=== PATIENT | male | born 1945 | race Caucasian/White ===

== ENCOUNTER 2022-08-10 14:45 | Outpatient (CLI) | payer OTHER, SELFPAY | END 2022-08-10 14:46 | disposition home or self-care (01) | LOC: AMB 08-14 09:10 | PROVIDERS: PCP Family Medicine; Visit Provider Family Medicine | DX: S89.91XA Unspecified injury of right lower leg, initial encounter (principal); S79.911A Unspecified injury of right hip, initial encounter; W18.30XA Fall on same level, unspecified, initial encounter; Y92.007 Garden or yard of unspecified non-institutional (private) residence as the place of occurrence of the external cause | CPT/HCPCS: A0425; A0427 ==

== ENCOUNTER 2022-08-10 15:09 | Inpatient (IN) | payer OTHER, SELFPAY ==
[2022-08-10] VITALS (14 sets, daily range): BP systolic 110–133; BP diastolic 57–103; PULSE 74–105; RESP 16–22; TEMP 36.5–36.9; O2SAT 88–93; BMI 22.0; BMI 22.4
--- NOTE | 2022-08-10 15:19 | CRLHL7_ITS ---
For Patients: As a result of the Cures Act, medical imaging exams and procedure reports are released immediately into your electronic medical record. You may view this report before your referring provider. If you have questions, please contact your health care provider. INDICATION: Fall, right hip Pain TECHNIQUE: Single view pelvis with AP and frogleg views of the right hip. COMPARISONS: None available. FINDINGS: Femoral heads are well-seated in the acetabula. There is a comminuted intertrochanteric fracture of the right hip. No other displaced injury is seen. There is axial loss of joint space with marginal osteophyte formation. Mild right hip soft tissue swelling. IMPRESSION: Comminuted intertrochanteric fracture of the right hip with mild right hip soft tissue swelling. Dictated by Wolfgang Ledbetter MD @ 08/10/2022 4:36:39 PM (Electronically Signed)
--- NOTE | 2022-08-10 15:36 | CRLHL7_ITS ---
For Patients: As a result of the Century Cures Act, medical imaging exams and procedure reports are released immediately into your electronic medical record. You may view this report before your referring provider. If you have questions, please contact your health care provider. INDICATION: Fall, right hip pain.. TECHNIQUE: Chest 1 view. COMPARISON: March 30, 2019. FINDINGS: Cardiovascular and mediastinum: Cardiomediastinal silhouette is within normal limits. Lungs and pleural spaces: Lungs are clear. Blunting of the right costophrenic angle may harbor small pleural effusion. No pneumothorax identified. Bones and soft tissues: Diffuse demineralization of the visualized bones.. IMPRESSION: Blunting of the right costophrenic angle likely related to small pleural effusion. Otherwise, no significant interval change. Dictated by Davis Tate MD @ 08/10/2022 4:37:24 PM (Electronically Signed)
--- NOTE | 2022-08-10 16:51 | P.IMHP_ITS ---
Hospitalist- H&P: HPI History of Present Illness Date Seen: 08/10/22 Chief complaint: Hip Injury Narrative: ADMISSION HISTORY AND PHYSICAL - HOSPITALIST Chief Complaint: Fall this afternoon HPI: 77-year-old patient with a history of diabetes, COPD, AARON, hypertension presents [place] a [place]. He lives alone. He was checking his mail. He had his walker nearby and the next thing he knew he was on the ground. He had pain in his right hip and was unable to get up. No other injuries. He did not lose consciousness. He states a neighbor, fellow resident, heard something and checked on him. EMS was called. He has felt well recently. While he lives alone, he does have great support from family and home health nursing team. He is on home O2 but typically just at night 2 L. he is insulin-dependent diabetic. ER COURSE: EMS transported. His pain has been minimal. He can not move right leg. Hospitalist service accepted. We will preop him on the floor tonight. Orthopedics is aware and planning for surgical correction in the morning. CODE STATUS: DNR DNI other than for direct surgical issues. EMERGENCY CONTACT PLAN: Brothricardo Haddad is his 1st contact. [phone]. I've updated the PFSH, medications and allergies in the Expanse tabs. INVESTIGATIONS: LABS/MICRO/ECG/IMAGING Afebrile Blood pressure 131/103 Pulse 80 Respirations 20 Pulse ox 91 Weight reported at 74 kilos CXR Blunting of the right costophrenic angle likely related to small pleural effusion. Otherwise, no significant interval change. Right Hip XRAY Comminuted intertrochanteric fracture of the right hip with mild right hip soft tissue swelling. CBC reflects a normal white blood cell count. Normal hemoglobin. Normal platelets. MCV is 108. INR is 1.0. PH is normal at 7.37. PCO2 is mildly elevated at 58. This is consistent with his known history of chronic lung disease. Electrolytes are reviewed. Creatinine is 0.9. Normal electrolytes. Glucose is 152. Troponin is undetectable. His C reactive protein is only 1.4. His magnesium is normal. His ionized calcium is normal. His lactate is normal. His BNP is 41. Respiratory panel is negative. REVIEW OF SYSTEMS: 12-point ROS completed with patient and negative unless otherwise stated in HPI or below. PHYSICAL EXAM: CONSTITUTIONAL: appears stated age. a little dishelved. happy and cooperative. hungry. VITAL SIGNS: see record. HEENT: Normocephalic, atraumatic. PERRL, EOMI, conjunctivae pink, no scleral icterus. Ears and nose externally normal. Pharynx normal. NECK: No JVD. No carotid bruit, no thyromegaly, no adenopathy. CHEST: Clear to auscultation bilaterally HEART: S1 and S2 normal. No harsh murmurs. No Edema MUSCULOSKELETAL: RIGHT HIP: foot slighty turned outward. tender over lateral right hip. no hemtoma. NVI. skin intact. NEURO: Cranial nerves intact. Grossly intact. No asymmetric findings. SKIN: No rashes, petechiae, concerning changes PSYCHIATRIC: Euthymic. ADMIT TO MEDSURG: FLOOR CARE DVT: SCDS GI: PO intake Time spent: 70 minutes examining patient, conferring with family and patient, care staff, developing care plan [facility] Medical History (Updated 08/10/22 @ 18:28 by Miriam Oreilly MD) Chronic kidney disease History of poliomyelitis Hypertension Mild cognitive impairment Obstructive sleep apnea On home oxygen therapy Severe chronic obstructive pulmonary disease Thrombocythemia Type 2 diabetes mellitus Surgical History (Updated 08/10/22 @ 17:06 by Miriam Oreilly MD) H/O foot surgery History of cataract surgery Social History (Updated 08/10/22 @ 18:34 by Miriam Oreilly MD) Narrative: lives in senior apartments in [place]. Never , no kids. siblings in the area, supportive. has routine fdc support via home health. retired from a [employer] company in [place]. smoked until 1990. Smoking Status: Never smoker Do you use any of these nicotine containing products: None Second hand tobacco smoke exposure: No How often do you have a drink containing alcohol: never How often do you have six or more drinks on one occasion: Never AUDIT-C Alcohol total score: 0 Non-prescribed substance use: denies use service: No Meds Home Medications and Allergies Home Medications Medication Instructions Recorded Confirmed Type amlodipine 5 mg tablet 5 mg PO DAILY 08/10/22 08/10/22 History aspirin 81 mg tablet,delayed 81 mg PO DAILY 08/10/22 08/10/22 History release cetirizine 10 mg tablet 10 mg PO DAILY 08/10/22 08/10/22 History fluticasone 500 mcg-salmeterol 50 1 inh inhalation DAILY 08/10/22 08/10/22 History mcg/dose blistr powdr for inhalation fluticasone propionate 50 1 spray intranasal Q12H 08/10/22 08/10/22 History mcg/actuation nasal spray,suspension hydroxyurea 500 mg capsule 500 mg PO DAILY 08/10/22 08/10/22 History insulin glargine U-300 conc 300 30 unit subcut HS 08/10/22 08/10/22 History unit/mL (1.5 mL) subcutaneous pen (Toujeo SoloStar U-300 Insulin) insulin lispro 100 unit/mL 10 unit subcut TIDWM 08/10/22 08/10/22 History subcutaneous pen lisinopril 5 mg tablet 5 mg PO DAILY 08/10/22 08/10/22 History melatonin 3 mg capsule 3 mg PO DAILY 08/10/22 08/10/22 History montelukast 10 mg tablet 10 mg PO DAILY 08/10/22 08/10/22 History pravastatin 80 mg tablet 80 mg PO DAILY 08/10/22 08/10/22 History Allergies Allergy/AdvReac Type Severity Reaction Status Date / Time No Known Drug Allergies Allergy Verified 08/10/22 15:25 Exam Const: Vital Signs, click to edit/add: Vital Signs - 24 hr 08/10/22 15:14 Temperature 97.7 F Pulse Rate [Pulse Oximeter] 88 Respiratory Rate 20 Blood Pressure [Ri ght Upper Arm] 131/103 H Pulse Oximetry 91 Oxygen Delivery Me thod Room Air Assessment and Plan Assessment and plan (1) Closed right hip fracture: Problem comment: Preop clearance complete. May proceed to the OR as planned. ECG reveals sinus rhythm with a rate of 89. No ischemic changes.. Labs reviewed. Chest x-ray reviewed. Arroyo placed. INR normal, not on anticoagulation. No murmurs. Hemodynamically stable. Status: Acute (2) Type 2 diabetes mellitus: Problem comment: A1c pending. Sliding scale insulin, Accu-Cheks. We will continue home insulin regimen but at reduced levels. Status: Acute (3) Severe chronic obstructive pulmonary disease: Problem comment: Continue home meds, O2 as needed. Status: Acute (4) On home oxygen therapy: Problem comment: 2 L at baseline, sounds like this is a mix of COPD and AARON. Status: Acute (5) Hypertension: Problem comment: Monitor. Hold antihypertensives for now. Status: Acute (6) Mild cognitive impairment: Problem comment: Not that apparent on interview tonight. Status: Acute (7) Chronic kidney disease: Status: Acute (8) Thrombocythemia: Status: Acute (9) Obstructive sleep apnea: Status: Acute
--- NOTE | 2022-08-10 17:00 | ED.GENADULT ---
HPI - General Adult General Date Seen: 08/10/22 Chief complaint: Hip Injury/Pain Stated complaint: Hip Injury Time Seen by Provider: 08/10/22 15:19 Source: patient Mode of arrival: EMS Limitations: no limitations History of Present Illness HPI narrative: Patient is a 77-year-old who was walking with his walker, he is not sure exactly how he fell but he fell landing on his right hip. He says he did not hit his head, denies any neck pain or head pain, did not have any loss of consciousness. There were some people walking nearby who helped him right away. He was not able to ambulate. EMS was called. He received 50 mcg of fentanyl EN route, and says pain is controlled right now as long as he does not move his hip. Only complaint is that of right hip pain. No radiating pain, numbness, other extremity pain. Denies back pain. Does not take any blood thinners. Related Data Home Medications Medication Instructions Recorded Confirmed amlodipine 5 mg tablet 5 mg PO DAILY 08/10/22 08/10/22 aspirin 81 mg tablet,delayed 81 mg PO DAILY 08/10/22 08/10/22 release cetirizine 10 mg tablet 10 mg PO DAILY 08/10/22 08/10/22 fluticasone 500 mcg-salmeterol 50 1 inh inhalation DAILY 08/10/22 08/10/22 mcg/dose blistr powdr for inhalation fluticasone propionate 50 1 spray intranasal Q12H 08/10/22 08/10/22 mcg/actuation nasal spray,suspension hydroxyurea 500 mg capsule 500 mg PO DAILY 08/10/22 08/10/22 insulin glargine U-300 conc 300 30 unit subcut HS 08/10/22 08/10/22 unit/mL (1.5 mL) subcutaneous pen (Lamar Kangar U-300 Insulin) insulin lispro 100 unit/mL 10 unit subcut TIDWM 08/10/22 08/10/22 subcutaneous pen lisinopril 5 mg tablet 5 mg PO DAILY 08/10/22 08/10/22 melatonin 3 mg capsule 3 mg PO DAILY 08/10/22 08/10/22 montelukast 10 mg tablet 10 mg PO DAILY 08/10/22 08/10/22 pravastatin 80 mg tablet 80 mg PO DAILY 08/10/22 08/10/22 Allergies Allergy/AdvReac Type Severity Reaction Status Date / Time No Known Drug Allergies Allergy Verified 08/10/22 15:25 Review of Systems Status of ROS: Reports: 10 or more systems reviewed and unremarkable except as noted in History and below [facility] Medical History (Updated 08/10/22 @ 18:28 by Miriam Oreilly MD) Chronic kidney disease History of poliomyelitis Hypertension Mild cognitive impairment Obstructive sleep apnea On home oxygen therapy Severe chronic obstructive pulmonary disease Thrombocythemia Type 2 diabetes mellitus Surgical History (Updated 08/10/22 @ 17:06 by Miriam Oreilly MD) H/O foot surgery History of cataract surgery Social History (Updated 08/10/22 @ 18:34 by Miriam Oreilly MD) Narrative: lives in senior apartments in [place]. Never , no kids. siblings in the area, supportive. has routine penitentiary support via home health. retired from a [employer] company in [place]. smoked until 1990. Smoking Status: Never smoker Do you use any of these nicotine containing products: None Second hand tobacco smoke exposure: No How often do you have a drink containing alcohol: never How often do you have six or more drinks on one occasion: Never AUDIT-C Alcohol total score: 0 Non-prescribed substance use: denies use service: No Exam Narrative: Exam Narrative: Vital signs as noted above. In general, an alert, nontoxic elderly male. Head: Normocephalic, atraumatic. Eyes: Pupils are equal reactive. Extraocular movements are full. Conjunctivae are normal. ENT: Mucous membranes are moist. Throat is normal. Neck: Supple without lymphadenopathy. Heart: Regular rate and rhythm. No murmur or rub. Lungs: Clear bilaterally. No increased work of breathing, crackles or wheezes. Abdomen: Soft and nontender. No organomegaly. Extremities: He has some tenderness over the right lateral hip. Right leg is slightly shortened. Pulses are intact in bilateral lower extremities. Distal CMS is normal. Neurologic: Patient is alert and oriented to person and place. Speech is fluent. Face is symmetric. Moves all extremities equally. Affect: Normal. Skin: Warm and dry. Well perfused. Const: Vital Signs, click to edit/add: Vital Signs - 24 hr 08/10/22 15:14 08/10/22 15:51 08/10/22 16:00 Temperature 97.7 F Pulse Rate 80 76 Pulse Rate [Pulse Oximeter] 88 Respiratory Rate 20 Blood Pressure Blood Pressure [Ri ght Upper Arm] 131/103 H Pulse Oximetry 91 90 91 Oxygen Delivery Me thod Room Air 08/10/22 16:03 08/10/22 16:30 08/10/22 16:32 Temperature Pulse Rate 77 75 74 Pulse Rate [Pulse Oximeter] Respiratory Rate Blood Pressure 120/57 L 110/60 Blood Pressure [Ri ght Upper Arm] Pulse Oximetry 90 93 91 Oxygen Delivery Me thod 08/10/22 17:00 08/10/22 17:02 08/10/22 17:30 Temperature Pulse Rate 75 74 76 Pulse Rate [Pulse Oximeter] Respiratory Rate Blood Pressure 119/62 Blood Pressure [Ri ght Upper Arm] Pulse Oximetry 91 90 90 Oxygen Delivery Me thod 08/10/22 17:32 Temperature Pulse Rate 76 Pulse Rate [Pulse Oximeter] Respiratory Rate Blood Pressure 119/61 Blood Pressure [Ri ght Upper Arm] Pulse Oximetry 89 Oxygen Delivery Me thod Documenting provider has reviewed patient's vital signs: yes Course Course Hospital Course: He declined the need for more pain medication. He was sent for x-rays of the right hip and had a chest x-ray as well. X-rays of the hips show by my review a comminuted intertrochanteric fracture. Radiology read is the same. The chest x-ray is read by Radiology as showing tiny right pleural effusion otherwise unchanged. Patient will be admitted to the hospital for surgical management. I have discussed his case with Dr. Michaels and with Dr. Oreilly. Preop labs and EKG will be ordered by Dr. Oreilly. He declines the need for anything further for pain. Vital Signs Vital signs: Initial Vital Signs Temperature 97.7 F 08/10/22 15:14 Temperature Source Temporal Artery Scan 08/10/22 15:14 Pulse Rate 88 08/10/22 15:14 Pulse Rhythm 08/10/22 15:14 Respiratory Rate 20 08/10/22 15:14 Blood Pressure 131/103 H 08/10/22 15:14 Blood Pressure Mean 112 08/10/22 15:14 Blood Pressure Position Semi-Fowlers 08/10/22 15:14 Pulse Oximetry 91 08/10/22 15:14 Oxygen Delivery Method 08/10/22 15:14 Vital Signs Temperature 97.7 F 08/10/22 15:14 Pulse Rate 88 08/10/22 15:14 Respiratory Rate 20 08/10/22 15:14 Blood Pressure 131/103 H 08/10/22 15:14 Pulse Oximetry 91 08/10/22 15:14 Oxygen Delivery Method 08/10/22 15:14 Temperature 98 F 08/10/22 18:14 Pulse Rate 86 08/10/22 18:14 Respiratory Rate 16 08/10/22 18:14 Blood Pressure 120/96 H 08/10/22 18:14 Pulse Oximetry 90 08/10/22 18:14 Oxygen Delivery Method 08/10/22 18:14 Oxygen Flow Rate 3 08/10/22 18:14 Medical Decision Making Lab Data Labs: Lab Results 08/10/22 08/10/22 08/10/22 Range/Units 16:47 17:07 17:07 WBC 7.29 (4.50-11.00) K/uL RBC 3.81 L (4.30-5.90) m/uL Hgb 13.6 (13.5-17.5) gm/dL Hct 41.0 (37.0-53.0) % MCV 108 H (80-100) fL MCH 36 H (26-34) pg MCHC 33 (32-36) gm/dL RDW Coeff of Khushboo 12.9 (11.5-15.5) % Plt Count 338 (140-440) K/uL Neut % (Auto) 70.1 (42.0-72.0) % Lymph % (Auto) 19.1 L (20-44) % [place] % (Auto) 2.5 (0.0-11.0) % Eos % (Auto) 6.9 (0.0-7.0) % Baso % (Auto) 0.3 (0.0-3.0) % Neut # (Auto) 5.12 (1.7-7.0) K/uL Lymph # (Auto) 1.40 (0.90-2.90) K/uL [place] # (Auto) 0.20 (0.00-0.90) K/UL Eos # (Auto) 0.50 (0.00-0.50) K/uL Baso # (Auto) 0.02 (0.00-0.30) K/uL INR 1.03 (0.91-1.10) VBG pH (7.32-7.43) VBG pCO2 (40-50) mmHG VBG pO2 (25-47) mmHG VBG HCO3 (21-28) mmol/L Sodium (135-149) mmol/L Potassium (3.6-5.1) mmol/L Chloride (96-114) mmol/L Carbon Dioxide (20-32) mmol/L BUN (7-30) mg/dL Creatinine (0.5-1.5) mg/dL Estimated Creat Clear Estimated GFR ml/min Glucose (60-115) mg/dL Hemoglobin A1c (0-5.6) % Lactate (0.5-1.9) mmol/L Calcium (8.4-10.6) mg/dL Ionized Calcium Joshua (1.11-1.30) mmol/L Magnesium (1.5-2.6) mg/dL Troponin I (0.01-0.04) ng/mL C-Reactive Protein (0.5-1.0) mg/dL NT-Pro-B Natriuret Pep pg/mL Urine Color (Yellow) Urine Appearance (Clear) Urine pH (5.0-8.5) Ur Specific [place] (1.000-1.030) Urine Protein (Negative) Urine Glucose (UA) (Negative) Urine Ketones (Negative) Urine Blood (Negative) Urine Nitrite (Negative) Urine Bilirubin (Negative) Urine Urobilinogen (0.2-1.0) Ur Leukocyte Esterase (Negative) Urine RBC (0-2) Urine WBC (0-5) Ur Squamous Epith Cells (None-Few) Urine Bacteria (None) SARS-CoV-2 (PCR) Negative SARS-CoV-2 (Negative) Influenza Type A (PCR) Negative PCR FLU A (Negative) Influenza Type B (PCR) Negative PCR FLU B (Negative) RSV (PCR) Negative PCR RSV (Negative) 08/10/22 08/10/22 08/10/22 Range/Units 17:07 17:07 17:07 WBC (4.50-11.00) K/uL RBC (4.30-5.90) m/uL Hgb (13.5-17.5) gm/dL Hct (37.0-53.0) % MCV (80-100) fL MCH (26-34) pg MCHC (32-36) gm/dL RDW Coeff of Khushboo (11.5-15.5) % Plt Count (140-440) K/uL Neut % (Auto) (42.0-72.0) % Lymph % (Auto) (20-44) % [place] % (Auto) (0.0-11.0) % Eos % (Auto) (0.0-7.0) % Baso % (Auto) (0.0-3.0) % Neut # (Auto) (1.7-7.0) K/uL Lymph # (Auto) (0.90-2.90) K/uL [place] # (Auto) (0.00-0.90) K/UL Eos # (Auto) (0.00-0.50) K/uL Baso # (Auto) (0.00-0.30) K/uL INR (0.91-1.10) VBG pH 7.372 (7.32-7.43) VBG pCO2 58 H (40-50) mmHG VBG pO2 36.9 (25-47) mmHG VBG HCO3 34 H (21-28) mmol/L Sodium 140 (135-149) mmol/L Potassium 4.8 (3.6-5.1) mmol/L Chloride 104 (96-114) mmol/L Carbon Dioxide 33 H (20-32) mmol/L BUN 20 (7-30) mg/dL Creatinine 0.9 (0.5-1.5) mg/dL Estimated Creat Clear 62.26 Estimated GFR 87 ml/min Glucose 152 H (60-115) mg/dL Hemoglobin A1c (0-5.6) % Lactate 1.0 (0.5-1.9) mmol/L Calcium 9.3 (8.4-10.6) mg/dL Ionized Calcium Joshua 1.20 (1.11-1.30) mmol/L Magnesium 1.9 (1.5-2.6) mg/dL Troponin I < 0.01 L (0.01-0.04) ng/mL C-Reactive Protein 1.4 H (0.5-1.0) mg/dL NT-Pro-B Natriuret Pep 41 pg/mL Urine Color (Yellow) Urine Appearance (Clear) Urine pH (5.0-8.5) Ur Specific [place] (1.000-1.030) Urine Protein (Negative) Urine Glucose (UA) (Negative) Urine Ketones (Negative) Urine Blood (Negative) Urine Nitrite (Negative) Urine Bilirubin (Negative) Urine Urobilinogen (0.2-1.0) Ur Leukocyte Esterase (Negative) Urine RBC (0-2) Urine WBC (0-5) Ur Squamous Epith Cells (None-Few) Urine Bacteria (None) SARS-CoV-2 (PCR) (Negative) Influenza Type A (PCR) (Negative) Influenza Type B (PCR) (Negative) RSV (PCR) (Negative) 08/10/22 08/10/22 Range/Units 17:07 18:00 WBC (4.50-11.00) K/uL RBC (4.30-5.90) m/uL Hgb (13.5-17.5) gm/dL Hct (37.0-53.0) % MCV (80-100) fL MCH (26-34) pg MCHC (32-36) gm/dL RDW Coeff of Khushboo (11.5-15.5) % Plt Count (140-440) K/uL Neut % (Auto) (42.0-72.0) % Lymph % (Auto) (20-44) % [place] % (Auto) (0.0-11.0) % Eos % (Auto) (0.0-7.0) % Baso % (Auto) (0.0-3.0) % Neut # (Auto) (1.7-7.0) K/uL Lymph # (Auto) (0.90-2.90) K/uL [place] # (Auto) (0.00-0.90) K/UL Eos # (Auto) (0.00-0.50) K/uL Baso # (Auto) (0.00-0.30) K/uL INR (0.91-1.10) VBG pH (7.32-7.43) VBG pCO2 (40-50) mmHG VBG pO2 (25-47) mmHG VBG HCO3 (21-28) mmol/L Sodium (135-149) mmol/L Potassium (3.6-5.1) mmol/L Chloride (96-114) mmol/L Carbon Dioxide (20-32) mmol/L BUN (7-30) mg/dL Creatinine (0.5-1.5) mg/dL Estimated Creat Clear Estimated GFR ml/min Glucose (60-115) mg/dL Hemoglobin A1c 7.57 H (0-5.6) % Lactate (0.5-1.9) mmol/L Calcium (8.4-10.6) mg/dL Ionized Calcium Joshua (1.11-1.30) mmol/L Magnesium (1.5-2.6) mg/dL Troponin I (0.01-0.04) ng/mL C-Reactive Protein (0.5-1.0) mg/dL NT-Pro-B Natriuret Pep pg/mL Urine Color Monique A (Yellow) Urine Appearance Clear (Clear) Urine pH 6.0 (5.0-8.5) Ur Specific [place] 1.025 (1.000-1.030) Urine Protein Trace A (Negative) Urine Glucose (UA) Trace A (Negative) Urine Ketones Negative (Negative) Urine Blood 2+ A (Negative) Urine Nitrite Negative (Negative) Urine Bilirubin Negative (Negative) Urine Urobilinogen 0.2 (0.2-1.0) Ur Leukocyte Esterase Negative (Negative) Urine RBC 2-5 A (0-2) Urine WBC 0-2 (0-5) Ur Squamous Epith Cells None (None-Few) Urine Bacteria None (None) SARS-CoV-2 (PCR) (Negative) Influenza Type A (PCR) (Negative) Influenza Type B (PCR) (Negative) RSV (PCR) (Negative) Discharge Plan Discharge Patient Disposition: Admitted As Inpatient
[2022-08-10 17:18] LABS: Basophils Absolute Auto 0.02 K/uL (0.00-0.30); Basophils Percent Auto 0.3 % (0.0-3.0); Eosinophils Percent Auto 6.9 % (0.0-7.0); Hemoglobin* 13.6 gm/dL (13.5-17.5); Immature Granulocytes Abs Auto 0.08 K/uL (0.00-0.30); Immature Granulocytes Pct Auto 1.1 %; Lymphocytes Percent Auto 19.1 % (20-44); Mean Corpuscular HGB Conc 33 gm/dL (32-36); Mean Corpuscular Hemoglobin 36 pg (26-34); Mean Corpuscular Volume 108 fL (80-100); Monocytes Percent Auto 2.5 % (0.0-11.0); Neutrophils Absolute Auto 5.12 K/uL (1.7-7.0); Neutrophils Percent Auto 70.1 % (42.0-72.0); Platelet Count* 338 K/uL (140-440); RDW Coefficient of Variation % 12.9 % (11.5-15.5); Red Blood Count 3.81 m/uL (4.30-5.90); White Blood Count* 7.29 K/uL (4.50-11.00)
[2022-08-10 17:19] LABS: HCO3 VBG 34 mmol/L (21-28); PCO2 VBG 58 mmHG (40-50); PO2 VBG 36.9 mmHG (25-47); pH VBG 7.372 (7.32-7.43)
[2022-08-10 17:23] LABS: Slide Review Reflex No
[2022-08-10 17:28] LABS: PCR FLU A Negative PCR FLU A (Negative); PCR FLU B Negative PCR FLU B (Negative); PCR RSV Negative PCR RSV (Negative)
[2022-08-10 17:33] LABS: SARS PCR* Negative SARS-CoV-2 (Negative)
[2022-08-10 17:36] LABS: Chloride* 104 mmol/L (96-114)
[2022-08-10 17:37] LABS: Potassium* 4.8 mmol/L (3.6-5.1); Sodium* 140 mmol/L (135-149)
[2022-08-10 17:38] LABS: INR 1.03 (0.91-1.10); Prothrombin Time 14.2 Seconds
[2022-08-10 17:39] LABS: Creatinine* 0.9 mg/dL (0.5-1.5); Est. Creatinine Clearance* 62.26; Estimated Glomerular Filt Rate 87 ml/min
[2022-08-10 17:40] LABS: Blood Urea Nitrogen* 20 mg/dL (7-30); Calcium* 9.3 mg/dL (8.4-10.6); Carbon Dioxide* 33 mmol/L (20-32); Glucose* 152 mg/dL (60-115)
[2022-08-10 17:41] LABS: Magnesium* 1.9 mg/dL (1.5-2.6)
[2022-08-10 17:43] LABS: C Reactive Protein* 1.4 mg/dL (0.5-1.0)
[2022-08-10 17:50] LABS: NT Pro B Type NatriureticPept* 41 pg/mL
[2022-08-10 17:56] LABS: Troponin I* < 0.01 ng/mL (0.01-0.04)
[2022-08-10 18:34] LABS: Appearance Urine Clear (Clear); Bilirubin Urine Negative (Negative); Blood Urine 2+ (Negative); Color Urine Amber (Yellow); Glucose Urine Trace (Negative); Ketones Urine Negative (Negative); Leukocyte Esterase Urine Negative (Negative); Nitrite Urine Negative (Negative); Protein Urine Trace (Negative); Specific Gravity Urine 1.025 (1.000-1.030); Urobilinogen Urine 0.2 (0.2-1.0)
[2022-08-10 18:49] LABS: WBC Urine 0-2 (0-5)
[2022-08-10 18:50] LABS: Hemoglobin A1C* 7.57 % (0-5.6)
[2022-08-10] MEDS: PANTOPRAZOLE SODIUM 40 MG INJ IVP (18:54)
--- NOTE | 2022-08-10 19:42 | PC.NURSE ---
Pt arrived to unit at 181, VS WNL. Pt exhibits chronic intermittent cough, pt upright to eat his supper. Denies pain except with movement and declines pain meds at this time. Arroyo placed, patent and draining. UA pending. EKG= NSR, tele placed on pt. BG= 158, pt will be NPO at 0000. Sx planned for tomorrow AM at 0900.
[2022-08-10] MEDS: IPRAT-ALBUT 0.5-2.5 MG/3 ML NEB 1 NEB IH (22:27)
[2022-08-10] MEDS: SODIUM CHLORIDE 0.9 % (FLUSH) 10 ML SYRINGE 5 ML IVF ×2 (22:29→22:53)
[2022-08-10] MEDS: FLUTICASONE PROPIONATE NASAL 1 SPRAY NOSTRIL-B (22:29)
[2022-08-10] MEDS: LACTATED RINGERS 1000 ML 1,000 ML 100 ML IV (22:30)
[2022-08-10] MEDS: ONDANSETRON 2 MG/ML inj 4 MG IVP (22:53)
[2022-08-10] MEDS: ALBUTEROL INHALER 2 PUFF IH (22:54)
[2022-08-11] VITALS (23 sets, daily range): BP systolic 85–130; BP diastolic 47–74; PULSE 73–107; RESP 16–22; TEMP 36.4–37.4; O2SAT 86–97
--- NOTE | 2022-08-11 | CRLHL7_ITS ---
For Patients: As a result of the Cures Act, medical imaging exams and procedure reports are released immediately into your electronic medical record. You may view this report before your referring provider. If you have questions, please contact your health care provider. INDICATION: Open reduction internal fixation of the right hip. TECHNIQUE: Fluoroscopically guided open reduction and internal fixation of the right hip. FINDINGS: Two portable intraoperative images of the right hip. Intramedullary right femoral yamilex. Right intertrochanteric pin. 1 minute 24 seconds fluoroscopy time utilized. IMPRESSION: Postsurgical changes as described. Dictated by Kadeem Mcnamara MD @ 08/12/2022 10:15:59 AM (Electronically Signed)
[2022-08-11] MEDS: LORazepam 2 MG/ML inj 0.5 MG IVP (00:23)
[2022-08-11] MEDS: guaiFENesin 600 MG TAB.ER.12H 1200 MG PO ×3 (00:23→21:52)
[2022-08-11] MEDS: HYDROmorphone 0.5 mg/0.5 ml inj IVP ×2 (00:24→06:27)
[2022-08-11] MEDS: ALBUTEROL INHALER 2 PUFF IH (06:28)
[2022-08-11 07:18] LABS: HCO3 VBG 32 mmol/L (21-28); PCO2 VBG 60 mmHG (40-50); PO2 VBG 42.6 mmHG (25-47); pH VBG 7.336 (7.32-7.43)
--- NOTE | 2022-08-11 07:27 | PC.NURSE ---
[id number]: Patient cooperative with cares. Daughter Lyn at bedside and supportive. NPO at 0000 for surgery today. 3 Lt NC to keep O2>88% per verbal from Dr. Oreilly. Intermittent cough with thick sputum. PRN nebs and inhaler. Maintained bedrest. Ice to R. hip. Arroyo patent. Patient anxious about surgery and expressed concern about not waking up several times. Ham Rolling Machine Operator provided reassurance and administered PRN Ativan which seemed helped. Patient denies pain except when coughing. PRN Dilaudid x2 administered for relief.
[2022-08-11] MEDS: IPRAT-ALBUT 0.5-2.5 MG/3 ML NEB 1 NEB IH ×2 (07:45→15:50)
[2022-08-11 07:59] LABS: Chloride* 102 mmol/L (96-114)
[2022-08-11 08:00] LABS: Basophils Absolute Auto 0.04 K/uL (0.00-0.30); Basophils Percent Auto 0.6 % (0.0-3.0); Eosinophils Absolute Auto 0.49 K/uL (0.00-0.50); Eosinophils Percent Auto 6.9 % (0.0-7.0); Hematocrit 38.9 % (37.0-53.0); Hemoglobin* 12.7 gm/dL (13.5-17.5); Immature Granulocytes Abs Auto 0.01 K/uL (0.00-0.30); Immature Granulocytes Pct Auto 0.1 %; Lymphocytes Absolute Auto 1.94 K/uL (0.90-2.90); Lymphocytes Percent Auto 27.3 % (20-44); Mean Corpuscular HGB Conc 33 gm/dL (32-36); Mean Corpuscular Hemoglobin 35 pg (26-34); Mean Corpuscular Volume 108 fL (80-100); Neutrophils Absolute Auto 4.48 K/uL (1.7-7.0); Neutrophils Percent Auto 63.1 % (42.0-72.0); Platelet Count* 331 K/uL (140-440); Potassium* 5.7 mmol/L (3.6-5.1); RDW Coefficient of Variation % 13.1 % (11.5-15.5); Red Blood Count 3.59 m/uL (4.30-5.90); Sodium* 136 mmol/L (135-149)
[2022-08-11 08:03] LABS: Blood Urea Nitrogen* 24 mg/dL (7-30); Calcium* 8.6 mg/dL (8.4-10.6); Carbon Dioxide* 31 mmol/L (20-32); Creatinine* 1.1 mg/dL (0.5-1.5); Est. Creatinine Clearance* 57.71; Estimated Glomerular Filt Rate 68 ml/min; Glucose* 284 mg/dL (60-115)
[2022-08-11 08:04] LABS: Slide Review Reflex No
[2022-08-11 08:09] LABS: INR 1.11 (0.91-1.10)
[2022-08-11] MEDS: FLUTICASONE PROPIONATE NASAL 1 SPRAY NOSTRIL-B ×2 (08:41→21:51)
[2022-08-11] MEDS: PRAVASTATIN SODIUM 20 MG TABLET 80 MG PO (08:47)
[2022-08-11] MEDS: LACTATED RINGERS 1000 ML 1,000 ML 100 ML IV ×2 (09:00→10:51)
--- NOTE | 2022-08-11 10:04 | P.ORCN_ITS ---
History of Present Illness HPI Date Seen: 08/11/22 Requesting physician: Miriam Oreilly Chief complaint: Hip Injury Narrative: Rossy is a 77-year-old community ambulator with a wheeled walker. He lives independently. He fell yesterday, sustaining a right hip fracture. He has never injured this hip or had surgery previously. He has COPD and insulin- dependent diabetes. Review of Systems Narrative: The patient denies: Fever, night sweats, shaking chills, nausea, vomiting, diarrhea, chest pain, chest pressure, shortness of breath, no rash, no change in hearing or vision, no issues with bleeding or clotting PFSH PFS Medical History Chronic kidney disease History of poliomyelitis Hypertension Mild cognitive impairment Obstructive sleep apnea On home oxygen therapy Severe chronic obstructive pulmonary disease Thrombocythemia Type 2 diabetes mellitus Surgical History H/O foot surgery History of cataract surgery Social History Narrative: lives in senior apartments in [place]. Never , no kids. siblings in the area, supportive. has routine long-term support via home health. retired from a [employer] company in [place]. smoked until 1990. Highest level of school completed/degree received: high school graduate Smoking Status: Never smoker Do you use any of these nicotine containing products: None Second hand tobacco smoke exposure: No How often do you have a drink containing alcohol: never How often do you have six or more drinks on one occasion: Never AUDIT-C Alcohol total score: 0 Non-prescribed substance use: denies use Caffeine: Yes service: No Meds Home Medications and Allergies Home Medications Medication Instructions Recorded Confirmed Type amlodipine 5 mg tablet 5 mg PO DAILY 08/10/22 08/10/22 History aspirin 81 mg tablet,delayed 81 mg PO DAILY 08/10/22 08/10/22 History release cetirizine 10 mg tablet 10 mg PO DAILY 08/10/22 08/10/22 History fluticasone 500 mcg-salmeterol 50 1 inh inhalation DAILY 08/10/22 08/10/22 History mcg/dose blistr powdr for inhalation fluticasone propionate 50 1 spray intranasal Q12H 08/10/22 08/10/22 History mcg/actuation nasal spray,suspension hydroxyurea 500 mg capsule 500 mg PO DAILY 08/10/22 08/10/22 History insulin glargine U-300 conc 300 30 unit subcut HS 08/10/22 08/10/22 History unit/mL (1.5 mL) subcutaneous pen (Toujeo SoloStar U-300 Insulin) insulin lispro 100 unit/mL 10 unit subcut TIDWM 08/10/22 08/10/22 History subcutaneous pen lisinopril 5 mg tablet 5 mg PO DAILY 08/10/22 08/10/22 History melatonin 3 mg capsule 3 mg PO DAILY 08/10/22 08/10/22 History montelukast 10 mg tablet 10 mg PO DAILY 08/10/22 08/10/22 History pravastatin 80 mg tablet 80 mg PO DAILY 08/10/22 08/10/22 History Allergies Allergy/AdvReac Type Severity Reaction Status Date / Time No Known Drug Allergies Allergy Verified 08/10/22 15:25 Ortho Exam Narrative Exam Narrative: The patient is alert and oriented x3, in no acute distress, they are able to converse in a normal speaking voice without obvious hearing loss and with nonlabored breathing. The patient is examined supine in the hospital bed. The skin about the right hip is intact and normal. Sensation and motor function to the right foot is diminished, secondary to polio. He has a cavus foot. The right knee appears normal, without surgical scars. Const Vital Signs, click to edit/add: Vital Signs - 24 hr 08/10/22 15:14 08/10/22 15:51 08/10/22 16:00 Temperature 97.7 F Pulse Rate 80 76 Pulse Rate [Pulse Oximeter] 88 Respiratory Rate 20 Blood Pressure Blood Pressure [Right Arm] Blood Pressure [Right Upper Arm] 131/103 H Pulse Oximetry 91 90 91 Oxygen Delivery Method Room Air Oxygen Flow Rate 08/10/22 16:03 08/10/22 16:30 08/10/22 16:32 Temperature Pulse Rate 77 75 74 Pulse Rate [Pulse Oximeter] Respiratory Rate Blood Pressure 120/57 L 110/60 Blood Pressure [Right Arm] Blood Pressure [Right Upper Arm] Pulse Oximetry 90 93 91 Oxygen Delivery Method Oxygen Flow Rate 08/10/22 17:00 08/10/22 17:02 08/10/22 17:30 Temperature Pulse Rate 75 74 76 Pulse Rate [Pulse Oximeter] Respiratory Rate Blood Pressure 119/62 Blood Pressure [Right Arm] Blood Pressure [Right Upper Arm] Pulse Oximetry 91 90 90 Oxygen Delivery Method Oxygen Flow Rate 08/10/22 17:32 08/10/22 18:06 08/10/22 18:06 Temperature 98 F Pulse Rate 76 Pulse Rate [Pulse Oximeter] 86 Respiratory Rate 16 16 Blood Pressure 119/61 Blood Pressure [Right Arm] 120/96 H Blood Pressure [Right Upper Arm] Pulse Oximetry 89 90 90 Oxygen Delivery Method Room Air Nasal Cannula Oxygen Flow Rate 2 08/10/22 18:14 08/10/22 20:43 08/10/22 18:14 Temperature 98 F 98.5 F Pulse Rate Pulse Rate [Pulse Oximeter] 86 105 H Respiratory Rate 16 20 22 Blood Pressure Blood Pressure [Right Arm] 120/96 H 133/65 Blood Pressure [Right Upper Arm] Pulse Oximetry 90 89 90 Oxygen Delivery Method Nasal Cannula Nasal Cannula Nasal Cannula Oxygen Flow Rate 3 3 2.0 08/11/22 00:32 08/10/22 23:00 08/10/22 23:00 Temperature 98.7 F Pulse Rate 92 Pulse Rate [Pulse Oximeter] 100 Respiratory Rate 22 Blood Pressure Blood Pressure [Right Arm] 121/59 L Blood Pressure [Right Upper Arm] Pulse Oximetry 88 88 Oxygen Delivery Method Nasal Cannula Oxygen Flow Rate 3 08/10/22 23:00 08/11/22 03:00 08/11/22 07:00 Temperature Pulse Rate 84 Pulse Rate [Pulse Oximeter] 76 Respiratory Rate 20 20 Blood Pressure Blood Pressure [Right Arm] Blood Pressure [Right Upper Arm] Pulse Oximetry 88 91 Oxygen Delivery Method Nasal Cannula Nasal Cannula Oxygen Flow Rate 3 3.0 Results Labs Labs: Laboratory Results - last 48 hr 08/10/22 08/10/22 08/10/22 06:51 16:47 17:07 WBC 7.29 RBC 3.81 L Hgb 13.6 Hct 41.0 MCV 108 H MCH 36 H MCHC 33 RDW Coeff of Khushboo 12.9 Plt Count 338 Neut % (Auto) 70.1 Lymph % (Auto) 19.1 L [place] % (Auto) 2.5 Eos % (Auto) 6.9 Baso % (Auto) 0.3 Neut # (Auto) 5.12 Lymph # (Auto) 1.40 [place] # (Auto) 0.20 Eos # (Auto) 0.50 Baso # (Auto) 0.02 INR VBG pH 7.336 VBG pCO2 60 H VBG pO2 42.6 VBG HCO3 32 H Sodium Potassium Chloride Carbon Dioxide BUN Creatinine Estimated Creat Clear Estimated GFR Glucose Hemoglobin A1c Lactate Calcium Ionized Calcium Joshua Magnesium Troponin I C-Reactive Protein NT-Pro-B Natriuret Pep Urine Color Urine Appearance Urine pH Ur Specific [place] Urine Protein Urine Glucose (UA) Urine Ketones Urine Blood Urine Nitrite Urine Bilirubin Urine Urobilinogen Ur Leukocyte Esterase Urine RBC Urine WBC Ur Squamous Epith Cells Urine Bacteria SARS-CoV-2 (PCR) Negative SARS-CoV-2 Influenza Type A (PCR) Negative PCR FLU A Influenza Type B (PCR) Negative PCR FLU B RSV (PCR) Negative PCR RSV 08/10/22 08/10/22 08/10/22 17:07 17:07 17:07 WBC RBC Hgb Hct MCV MCH MCHC RDW Coeff of Khushboo Plt Count Neut % (Auto) Lymph % (Auto) [place] % (Auto) Eos % (Auto) Baso % (Auto) Neut # (Auto) Lymph # (Auto) [place] # (Auto) Eos # (Auto) Baso # (Auto) INR 1.03 VBG pH 7.372 VBG pCO2 58 H VBG pO2 36.9 VBG HCO3 34 H Sodium 140 Potassium 4.8 Chloride 104 Carbon Dioxide 33 H BUN 20 Creatinine 0.9 Estimated Creat Clear 62.26 Estimated GFR 87 Glucose 152 H Hemoglobin A1c Lactate 1.0 Calcium 9.3 Ionized Calcium Joshua 1.20 Magnesium 1.9 Troponin I C-Reactive Protein 1.4 H NT-Pro-B Natriuret Pep Urine Color Urine Appearance Urine pH Ur Specific [place] Urine Protein Urine Glucose (UA) Urine Ketones Urine Blood Urine Nitrite Urine Bilirubin Urine Urobilinogen Ur Leukocyte Esterase Urine RBC Urine WBC Ur Squamous Epith Cells Urine Bacteria SARS-CoV-2 (PCR) Influenza Type A (PCR) Influenza Type B (PCR) RSV (PCR) 08/10/22 08/10/22 08/10/22 17:07 17:07 18:00 WBC RBC Hgb Hct MCV MCH MCHC RDW Coeff of Khushboo Plt Count Neut % (Auto) Lymph % (Auto) [place] % (Auto) Eos % (Auto) Baso % (Auto) Neut # (Auto) Lymph # (Auto) [place] # (Auto) Eos # (Auto) Baso # (Auto) INR VBG pH VBG pCO2 VBG pO2 VBG HCO3 Sodium Potassium Chloride Carbon Dioxide BUN Creatinine Estimated Creat Clear Estimated GFR Glucose Hemoglobin A1c 7.57 H Lactate Calcium Ionized Calcium Joshua Magnesium Troponin I < 0.01 L C-Reactive Protein NT-Pro-B Natriuret Pep 41 Urine Color Monique A Urine Appearance Clear Urine pH 6.0 Ur Specific [place] 1.025 Urine Protein Trace A Urine Glucose (UA) Trace A Urine Ketones Negative Urine Blood 2+ A Urine Nitrite Negative Urine Bilirubin Negative Urine Urobilinogen 0.2 Ur Leukocyte Esterase Negative Urine RBC 2-5 A Urine WBC 0-2 Ur Squamous Epith Cells None Urine Bacteria None SARS-CoV-2 (PCR) Influenza Type A (PCR) Influenza Type B (PCR) RSV (PCR) 08/11/22 08/11/22 08/11/22 06:51 06:51 06:51 WBC 7.10 RBC 3.59 L Hgb 12.7 L Hct 38.9 MCV 108 H MCH 35 H MCHC 33 RDW Coeff of Khushboo 13.1 Plt Count 331 Neut % (Auto) 63.1 Lymph % (Auto) 27.3 [place] % (Auto) 2.0 Eos % (Auto) 6.9 Baso % (Auto) 0.6 Neut # (Auto) 4.48 Lymph # (Auto) 1.94 [place] # (Auto) 0.10 Eos # (Auto) 0.49 Baso # (Auto) 0.04 INR 1.11 H VBG pH VBG pCO2 VBG pO2 VBG HCO3 Sodium 136 Potassium 5.7 H Chloride 102 Carbon Dioxide 31 BUN 24 Creatinine 1.1 Estimated Creat Clear 57.71 Estimated GFR 68 Glucose 284 H Hemoglobin A1c Lactate Calcium 8.6 Ionized Calcium Joshua Magnesium Troponin I C-Reactive Protein NT-Pro-B Natriuret Pep Urine Color Urine Appearance Urine pH Ur Specific [place] Urine Protein Urine Glucose (UA) Urine Ketones Urine Blood Urine Nitrite Urine Bilirubin Urine Urobilinogen Ur Leukocyte Esterase Urine RBC Urine WBC Ur Squamous Epith Cells Urine Bacteria SARS-CoV-2 (PCR) Influenza Type A (PCR) Influenza Type B (PCR) RSV (PCR) Diagnostic results Additional Comments: An AP pelvis, AP and cross-table lateral view of the right hip show a 2 part intertrochanteric femur fracture. There is no pre-existing hip joint osteoarthritis. There is no obvious pathologic lesion. Assessment and Plan Assessment and plan (1) Closed right hip fracture: Problem comment: Preop clearance complete. May proceed to the OR as planned. ECG reveals sinus rhythm with a rate of 89. No ischemic changes.. Labs reviewed. Chest x-ray reviewed. Arroyo placed. INR normal, not on anticoagulation. No murmurs. Hemodynamically stable. Status: Acute Total time spent: Total time spent is greater than 50% in coordination of care (as documented) at patient's floor/unit and/or counseling patient: (2) Type 2 diabetes mellitus: Problem comment: A1c pending. Sliding scale insulin, Accu-Cheks. We will continue home insulin regimen but at reduced levels. Status: Acute Total time spent: Total time spent is greater than 50% in coordination of care (as documented) at patient's floor/unit and/or counseling patient: (3) Severe chronic obstructive pulmonary disease: Problem comment: Continue home meds, O2 as needed. Status: Acute Total time spent: Total time spent is greater than 50% in coordination of care (as documented) at patient's floor/unit and/or counseling patient: (4) On home oxygen therapy: Problem comment: 2 L at baseline, sounds like this is a mix of COPD and AARON. Status: Acute Total time spent: Total time spent is greater than 50% in coordination of care (as documented) at patient's floor/unit and/or counseling patient: (5) Hypertension: Problem comment: Monitor. Hold antihypertensives for now. Status: Acute Total time spent: Total time spent is greater than 50% in coordination of care (as documented) at patient's floor/unit and/or counseling patient: (6) Mild cognitive impairment: Problem comment: Not that apparent on interview tonight. Status: Acute Total time spent: Total time spent is greater than 50% in coordination of care (as documented) at patient's floor/unit and/or counseling patient: (7) Chronic kidney disease: Status: Acute Total time spent: Total time spent is greater than 50% in coordination of care (as documented) at patient's floor/unit and/or counseling patient: (8) Thrombocythemia: Status: Acute Total time spent: Total time spent is greater than 50% in coordination of care (as documented) at patient's floor/unit and/or counseling patient: (9) Obstructive sleep apnea: Status: Acute Total time spent: Total time spent is greater than 50% in coordination of care (as documented) at patient's floor/unit and/or counseling patient: Plan Assessment: 2 part intertrochanteric right hip fracture Plan: He has been medically cleared for surgery. Therefore, we will plan to take him to the operating room this morning for ORIF.
--- NOTE | 2022-08-11 10:32 | P.IMPN_ITS ---
Progress Note: A&P Assessment and plan (1) Closed right hip fracture: Problem details: underwent surgery 08/11 Status: Acute Assessment and Plan: pain control; diet, dvt ppx per surgery (2) Severe chronic obstructive pulmonary disease: Problem details: Continue home meds, O2 as needed. Status: Acute (3) Mild cognitive impairment: Problem details: OT consult Status: Acute (4) On home oxygen therapy: Problem details: 2 L at baseline, sounds like this is a mix of COPD and AARON. Status: Acute (5) Thrombocythemia: Status: Acute (6) Chronic kidney disease: Status: Acute (7) Obstructive sleep apnea: Status: Acute (8) Hypertension: Problem details: Monitor. Hold antihypertensives for now. Status: Acute (9) Type 2 diabetes mellitus: Problem details: Sliding scale insulin, Accu-Cheks. Status: Acute Subjective Date Seen: 08/11/22 Interval history: patient seen today getting duoneb denies chest pain denies sob denies nausea and vomiting has no other acute concerns Exam Narrative: Exam Narrative: Gen: no acute distress HEENT: NCAT EOMI mmm CV: RRR normal s1 s2 Lungs: CTAB Abd: Soft,nt, nd Neuro: Alert, oriented, CN grossly intact; nonfocal screening?exam Psych: appropriate affect MSK: age appropriate muscle mass Skin; Warm, dry no rash on face Const: Vital Signs, click to edit/add: Vital Signs - 24 hr 08/10/22 15:14 08/10/22 15:51 08/10/22 16:00 Temperature 97.7 F Pulse Rate 80 76 Pulse Rate [Pulse Oximeter] 88 Respiratory Rate 20 Blood Pressure Blood Pressure [Ri ght Arm] Blood Pressure [Ri ght Upper Arm] 131/103 H Pulse Oximetry 91 90 91 Oxygen Delivery Me thod Room Air Oxygen Flow Rate 08/10/22 16:03 08/10/22 16:30 08/10/22 16:32 Temperature Pulse Rate 77 75 74 Pulse Rate [Pulse Oximeter] Respiratory Rate Blood Pressure 120/57 L 110/60 Blood Pressure [Ri ght Arm] Blood Pressure [Ri ght Upper Arm] Pulse Oximetry 90 93 91 Oxygen Delivery Me thod Oxygen Flow Rate 08/10/22 17:00 08/10/22 17:02 08/10/22 17:30 Temperature Pulse Rate 75 74 76 Pulse Rate [Pulse Oximeter] Respiratory Rate Blood Pressure 119/62 Blood Pressure [Ri ght Arm] Blood Pressure [Ri ght Upper Arm] Pulse Oximetry 91 90 90 Oxygen Delivery Me thod Oxygen Flow Rate 08/10/22 17:32 08/10/22 18:06 08/10/22 18:06 Temperature 98 F Pulse Rate 76 Pulse Rate [Pulse Oximeter] 86 Respiratory Rate 16 16 Blood Pressure 119/61 Blood Pressure [Ri ght Arm] 120/96 H Blood Pressure [Ri ght Upper Arm] Pulse Oximetry 89 90 90 Oxygen Delivery Me thod Room Air Nasal Cannula Oxygen Flow Rate 2 08/10/22 18:14 08/10/22 20:43 08/10/22 18:14 Temperature 98 F 98.5 F Pulse Rate Pulse Rate [Pulse Oximeter] 86 105 H Respiratory Rate 16 20 22 Blood Pressure Blood Pressure [Ri ght Arm] 120/96 H 133/65 Blood Pressure [Ri ght Upper Arm] Pulse Oximetry 90 89 90 Oxygen Delivery Me thod Nasal Cannula Nasal Cannula Nasal Cannula Oxygen Flow Rate 3 3 2.0 08/11/22 00:32 08/10/22 23:00 08/10/22 23:00 Temperature 98.7 F Pulse Rate 92 Pulse Rate [Pulse Oximeter] 100 Respiratory Rate 22 Blood Pressure Blood Pressure [Ri ght Arm] 121/59 L Blood Pressure [Ri ght Upper Arm] Pulse Oximetry 88 88 Oxygen Delivery Me thod Nasal Cannula Oxygen Flow Rate 3 08/10/22 23:00 08/11/22 03:00 08/11/22 07:00 Temperature Pulse Rate 84 Pulse Rate [Pulse Oximeter] 76 Respiratory Rate 20 20 Blood Pressure Blood Pressure [Ri ght Arm] Blood Pressure [Ri ght Upper Arm] Pulse Oximetry 88 91 Oxygen Delivery Me thod Nasal Cannula Nasal Cannula Oxygen Flow Rate 3 3.0 Labs Labs: Laboratory Results - last 24 hr 08/10/22 08/10/22 08/10/22 06:51 16:47 17:07 WBC 7.29 RBC 3.81 L Hgb 13.6 Hct 41.0 MCV 108 H MCH 36 H MCHC 33 RDW Coeff of Khushboo 12.9 Plt Count 338 Neut % (Auto) 70.1 Lymph % (Auto) 19.1 L [place] % (Auto) 2.5 Eos % (Auto) 6.9 Baso % (Auto) 0.3 Neut # (Auto) 5.12 Lymph # (Auto) 1.40 [place] # (Auto) 0.20 Eos # (Auto) 0.50 Baso # (Auto) 0.02 INR VBG pH 7.336 VBG pCO2 60 H VBG pO2 42.6 VBG HCO3 32 H Sodium Potassium Chloride Carbon Dioxide BUN Creatinine Estimated Creat Clear Estimated GFR Glucose Hemoglobin A1c Lactate Calcium Ionized Calcium Joshua Magnesium Troponin I C-Reactive Protein NT-Pro-B Natriuret Pep Urine Color Urine Appearance Urine pH Ur Specific [place] Urine Protein Urine Glucose (UA) Urine Ketones Urine Blood Urine Nitrite Urine Bilirubin Urine Urobilinogen Ur Leukocyte Esterase Urine RBC Urine WBC Ur Squamous Epith Cells Urine Bacteria SARS-CoV-2 (PCR) Negative SARS-CoV-2 Influenza Type A (PCR) Negative PCR FLU A Influenza Type B (PCR) Negative PCR FLU B RSV (PCR) Negative PCR RSV 08/10/22 08/10/22 08/10/22 17:07 17:07 17:07 WBC RBC Hgb Hct MCV MCH MCHC RDW Coeff of Khushboo Plt Count Neut % (Auto) Lymph % (Auto) [place] % (Auto) Eos % (Auto) Baso % (Auto) Neut # (Auto) Lymph # (Auto) [place] # (Auto) Eos # (Auto) Baso # (Auto) INR 1.03 VBG pH 7.372 VBG pCO2 58 H VBG pO2 36.9 VBG HCO3 34 H Sodium 140 Potassium 4.8 Chloride 104 Carbon Dioxide 33 H BUN 20 Creatinine 0.9 Estimated Creat Clear 62.26 Estimated GFR 87 Glucose 152 H Hemoglobin A1c Lactate 1.0 Calcium 9.3 Ionized Calcium [place] 1.20 Magnesium 1.9 Troponin I C-Reactive Protein 1.4 H NT-Pro-B Natriuret Pep Urine Color Urine Appearance Urine pH Ur Specific [place] Urine Protein Urine Glucose (UA) Urine Ketones Urine Blood Urine Nitrite Urine Bilirubin Urine Urobilinogen Ur Leukocyte Esterase Urine RBC Urine WBC Ur Squamous Epith Cells Urine Bacteria SARS-CoV-2 (PCR) Influenza Type A (PCR) Influenza Type B (PCR) RSV (PCR) 08/10/22 08/10/22 08/10/22 17:07 17:07 18:00 WBC RBC Hgb Hct MCV MCH MCHC RDW Coeff of Khushboo Plt Count Neut % (Auto) Lymph % (Auto) [place] % (Auto) Eos % (Auto) Baso % (Auto) Neut # (Auto) Lymph # (Auto) [place] # (Auto) Eos # (Auto) Baso # (Auto) INR VBG pH VBG pCO2 VBG pO2 VBG HCO3 Sodium Potassium Chloride Carbon Dioxide BUN Creatinine Estimated Creat Clear Estimated GFR Glucose Hemoglobin A1c 7.57 H Lactate Calcium Ionized Calcium Joshua Magnesium Troponin I < 0.01 L C-Reactive Protein NT-Pro-B Natriuret Pep 41 Urine Color Monique A Urine Appearance Clear Urine pH 6.0 Ur Specific [place] 1.025 Urine Protein Trace A Urine Glucose (UA) Trace A Urine Ketones Negative Urine Blood 2+ A Urine Nitrite Negative Urine Bilirubin Negative Urine Urobilinogen 0.2 Ur Leukocyte Esterase Negative Urine RBC 2-5 A Urine WBC 0-2 Ur Squamous Epith Cells None Urine Bacteria None SARS-CoV-2 (PCR) Influenza Type A (PCR) Influenza Type B (PCR) RSV (PCR) 08/11/22 08/11/22 08/11/22 06:51 06:51 06:51 WBC 7.10 RBC 3.59 L Hgb 12.7 L Hct 38.9 MCV 108 H MCH 35 H MCHC 33 RDW Coeff of Khushboo 13.1 Plt Count 331 Neut % (Auto) 63.1 Lymph % (Auto) 27.3 [place] % (Auto) 2.0 Eos % (Auto) 6.9 Baso % (Auto) 0.6 Neut # (Auto) 4.48 Lymph # (Auto) 1.94 [place] # (Auto) 0.10 Eos # (Auto) 0.49 Baso # (Auto) 0.04 INR 1.11 H VBG pH VBG pCO2 VBG pO2 VBG HCO3 Sodium 136 Potassium 5.7 H Chloride 102 Carbon Dioxide 31 BUN 24 Creatinine 1.1 Estimated Creat Clear 57.71 Estimated GFR 68 Glucose 284 H Hemoglobin A1c Lactate Calcium 8.6 Ionized Calcium Joshua Magnesium Troponin I C-Reactive Protein NT-Pro-B Natriuret Pep Urine Color Urine Appearance Urine pH Ur Specific [place] Urine Protein Urine Glucose (UA) Urine Ketones Urine Blood Urine Nitrite Urine Bilirubin Urine Urobilinogen Ur Leukocyte Esterase Urine RBC Urine WBC Ur Squamous Epith Cells Urine Bacteria SARS-CoV-2 (PCR) Influenza Type A (PCR) Influenza Type B (PCR) RSV (PCR)
[2022-08-11] MEDS: CEFAZOLIN 2 GM INJ IVP (10:37)
[2022-08-11] MEDS: TRANEXAMIC ACID 100 MG/ML INJ 1000 MG IV (10:45)
[2022-08-11 11:42] LABS: Potassium* 4.5 mmol/L (3.6-5.1)
--- NOTE | 2022-08-11 11:58 | P.ORPRC_ITS ---
Procedure Note Date of procedure: 08/11/22 Procedure: PREOPERATIVE DIAGNOSIS: Right hip 2 part intertrochanteric fracture POSTOPERATIVE DIAGNOSIS: Right hip 2 part intertrochanteric fracture NAME OF OPERATION: Right hip fracture ORIF SURGEON: Daniele Michaels MD BARREL CENTERER: Edyta Ruffin PA-C IMPLANTS: Synthes intramedullary hip screw 11 mm x 170 mm with a 105 mm lag screw and a 36 mm distal interlocking screw ANESTHESIA: Spinal ESTIMATED BLOOD LOSS: 50 mL COMPLICATIONS: None SPECIMENS: None DRAINS: None PREOPERATIVE ANTIBIOTICS: Ancef 1 gram INDICATIONS: The patient is a 77-year-old who fell yesterday sustaining a 2 part intertrochanteric fracture of the right hip. They were admitted for workup and care. They have been medically cleared for surgery. The risks, benefits and expected outcomes were discussed in detail. These included but were not limited to: Infection, bleeding, injury to blood vessel or nerve, venous thromboembolism. All questions were answered to their satisfaction. Use of an server service assistant was necessary for patient positioning and safety, soft tissue retraction and closure, dressing application, and transfer of the patient to and from the hospital bed to the fracture table. PROCEDURE: Spinal anesthesia was administered. The patient was placed supine on the fracture table. The right lower extremity was prepped and draped in the usual sterile fashion. The limb was placed in longitudinal traction. Our provisional reduction was confirmed with the C-arm. The guide pin was placed percutaneously to the tip of the greater trochanter. It was advanced into the canal. Its placement was confirmed with the image intensifier in both AP and lateral views. We then made a stab incision around the guide pin. The soft tissue sleeve was advanced to the tip of the trochanter. The opening reamer was used. We made an incision over the flare of the greater trochanter. Dissection was carried with the Mendoza elevator to the lateral cortex. The intramedullary nail was placed. The guide pin was taken to the subchondral bone of the femoral head on both the AP and lateral views. It was placed in the posterior, inferior aspect of the head. The drill and the tap were used. We placed the 105 mm lag screw. Our reduction remains anatomic. Traction was released. The lag screw was set to dynamic mode. That is it was not locked. We placed a 36 mm distal interlocking screw. This construct was imaged in the AP and lateral views and was felt to be well placed with an anatomic reduction. The wounds were irrigated with normal saline. They were closed with Vicryl deep and Monocryl in the skin. A dry dressing was applied. Sponge and needle counts were correct x2. The patient tolerated the procedure well. There were no apparent complications. They were carefully transferred to the hospital bed and taken to the postanesthesia care unit in satisfactory condition. PLAN: The patient will be mobilized with physical therapy. They may weightbear as tolerates on the right lower extremity. Xarelto for 5 days then aspirin b.i.d. will be used for DVT prophylaxis. They will be discharged to a long-term once medically appropriate.
--- NOTE | 2022-08-11 12:23 | P.ANES_ITS ---
Anesthesia Charges Start Date/Time Anesthesia Start Date: 08/11/22 Anesthesia Start Time: 10:27 Stop Date/Time Anesthesia Stop Date: 08/11/22 Anesthesia Stop Time: 12:18 Summary Emergency: AUDIT PRACTICE INTERN
--- NOTE | 2022-08-11 12:45 | W.PM.NB ---
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 Images saved: Yes Medications given in 5ml increments after negative aspiration: Ropivicaine %: 0.5 mL: 26 Needle gauge: 20 Decadron (mg): 10 Precedex (mcg): 25 Patient tolerated procedure well: Yes Block Charges Block Charge (with Pro Fee): Other Periph Nerve Block Use of Ultrasound Machine for Block: Yes- US Guidance/pain block
[2022-08-11] MEDS: LACTATED RINGERS 1000 ML 500 ML IV (14:15)
[2022-08-11] MEDS: OXYCODONE 5 MG TABLET PO ×2 (15:19→18:53)
[2022-08-11] MEDS: ACETAMINOPHEN 325 MG TABLET 650 MG PO ×2 (15:19→21:52)
[2022-08-11] MEDS: 0.9 % SODIUM CHLORIDE 1000 ml 1,000 ML 500 ML IV (18:17)
[2022-08-11] MEDS: CEFAZOLIN 1 GM in 0.9 % SODIUM CHLORIDE Mini-bag 100 ML IVPB (18:18)
--- NOTE | 2022-08-11 19:38 | PC.NURSE ---
Nursing Care Hours: [id number] Pt this shift alert and oriented, calm and cooperative. Bedrest prior to surgery, after surgery, pt assisted up to chair at end of 6 hour post op vitals. Tolerated well, rated pain 8/10 afterwards, treated per eMAR. Bandage remained CDI, ice applied, CMS intact. Pt having low urine output in hinton catheter of dark brown color. Multiple fluid boluses ordered. U/o started to become more transparent but still low output. BP low-normal, and pt tachy. Transitional Nurse instructed pt to increase oral intake. MD aware. Tolerating regular diet.
[2022-08-11] MEDS: SENNOSIDES 1 TAB TABLET 2 TAB PO (21:52)
[2022-08-11] MEDS: LACTATED RINGERS 1000 ML 1,000 ML 75 ML IV (21:53)
[2022-08-11] MEDS: SODIUM CHLORIDE 0.9 % (FLUSH) 10 ML SYRINGE 5 ML IVF (21:53)
[2022-08-11] MEDS: 0.9 % SODIUM CHLORIDE 500 ML IV (22:13)
[2022-08-12] VITALS (7 sets, daily range): BP systolic 108–145; BP diastolic 51–68; PULSE 68–90; RESP 18–24; TEMP 36.6–36.7; O2SAT 91–95
[2022-08-12] MEDS: CEFAZOLIN 1 GM in 0.9 % SODIUM CHLORIDE Mini-bag 100 ML IVPB ×2 (00:32→08:34)
[2022-08-12] MEDS: ACETAMINOPHEN 325 MG TABLET 650 MG PO ×4 (03:23→22:14)
[2022-08-12] MEDS: OXYCODONE 5 MG TABLET PO ×5 (03:23→22:22)
--- NOTE | 2022-08-12 06:10 | PC.NURSE ---
[id number]: Patient pleasant and cooperative. Heavy A2/walker/GB. Rates pain 0-4/10 in R.hip. PRN Oxycodone and active ice for relief. Dressings to R.hip C/D/I. Afebrile. 500mL fluid bolus d/t low urine output. Arroyo patent and draining nicole colored urine.
[2022-08-12 06:38] LABS: Hematocrit 34.5 % (37.0-53.0); Hemoglobin* 11.3 gm/dL (13.5-17.5); Mean Corpuscular HGB Conc 33 gm/dL (32-36); Mean Corpuscular Hemoglobin 36 pg (26-34); Mean Corpuscular Volume 109 fL (80-100); Neutrophils Percent Auto 78.8 % (42.0-72.0); Platelet Count* 269 K/uL (140-440); Red Blood Count 3.18 m/uL (4.30-5.90); White Blood Count* 6.42 K/uL (4.50-11.00)
[2022-08-12 06:39] LABS: Basophils Absolute Auto 0.01 K/uL (0.00-0.30); Basophils Percent Auto 0.2 % (0.0-3.0); Eosinophils Absolute Auto 0.02 K/uL (0.00-0.50); Eosinophils Percent Auto 0.3 % (0.0-7.0); Immature Granulocytes Abs Auto 0.02 K/uL (0.00-0.30); Immature Granulocytes Pct Auto 0.3 %; Lymphocytes Percent Auto 17.6 % (20-44); Monocytes Percent Auto 2.8 % (0.0-11.0)
[2022-08-12 06:42] LABS: Slide Review Reflex Yes
[2022-08-12 06:56] LABS: Chloride* 104 mmol/L (96-114); Potassium* 5.9 mmol/L (3.6-5.1); Sodium* 133 mmol/L (135-149)
[2022-08-12 06:58] LABS: Creatinine* 1.2 mg/dL (0.5-1.5); Estimated Glomerular Filt Rate 62 ml/min
[2022-08-12 06:59] LABS: Blood Urea Nitrogen* 26 mg/dL (7-30); Calcium* 8.1 mg/dL (8.4-10.6); Carbon Dioxide* 27 mmol/L (20-32)
[2022-08-12 07:11] LABS: Glucose* 495 mg/dL (60-115)
[2022-08-12 07:22] LABS: Slide Review Acceptable Review (Acceptable)
[2022-08-12] MEDS: FUROSEMIDE 10 MG/ML inj 40 MG IVP (08:33)
[2022-08-12] MEDS: 0.9 % SODIUM CHLORIDE 500 ML 500 ML IV (08:33)
[2022-08-12] MEDS: PRAVASTATIN SODIUM 20 MG TABLET 80 MG PO (08:35)
[2022-08-12] MEDS: guaiFENesin 600 MG TAB.ER.12H 1200 MG PO ×2 (08:35→22:14)
[2022-08-12] MEDS: SENNOSIDES 1 TAB TABLET 2 TAB PO ×2 (08:35→22:14)
[2022-08-12] MEDS: SODIUM CHLORIDE 0.9 % (FLUSH) 10 ML SYRINGE 5 ML IVF ×2 (08:36→22:15)
[2022-08-12] MEDS: FLUTICASONE PROPIONATE NASAL 1 SPRAY NOSTRIL-B ×2 (10:00→22:15)
--- NOTE | 2022-08-12 10:02 | P.ORPN_ITS ---
Subjective Subjective Time Seen by Provider: 10:02 Date Seen: 08/12/22 Principal diagnosis: Right hip fracture, status post IM rodding Interval history: Rossy has pain with movement. He has 2 person assist. Significant pain with weight-bearing on right lower extremity. Planning on detention facility on discharge. Ortho Exam Narrative Exam Narrative: Alert and oriented x3. Patient is in no acute distress. Converses without labored breathing. Hearing is grossly intact. Ambulates with pain and a walker. With physical therapy this morning he ambulated 4 steps. This was quite painful with placing weight on his right lower extremity. Dressings are clean, dry, and intact. Very minimal soft tissue edema about the right hip. No edema about the thigh or lower leg. Bilateral calves are soft and nontender. 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 When asked to dorsiflex and plantar flex ankle, he has not able to do this, rather inverts and everts the foot. I believe this is due to his polio, and not foot drop. CMS otherwise intact right lower extremity. Const Vital Signs, click to edit/add: Vital Signs - 24 hr 08/11/22 12:14 08/11/22 12:25 08/11/22 12:20 Temperature 97.6 F Pulse Rate 85 87 86 Pulse Rate [Pulse Oximeter] Respiratory Rate 18 17 16 Blood Pressure 105/48 L 107/57 L 104/47 L Blood Pressure [Right Arm] Pulse Oximetry 92 96 91 Oxygen Delivery Method Room Air Nasal Cannula Oxygen Flow Rate 2 08/11/22 12:30 08/11/22 12:35 08/11/22 12:40 Temperature 97.5 F L Pulse Rate 91 94 96 Pulse Rate [Pulse Oximeter] Respiratory Rate 16 17 17 Blood Pressure 85/74 L 130/55 L 104/54 L Blood Pressure [Right Arm] Pulse Oximetry 96 97 91 Oxygen Delivery Method Nasal Cannula Nasal Cannula Nasal Cannula Oxygen Flow Rate 2 2 2 08/11/22 12:59 08/11/22 15:00 08/11/22 15:00 Temperature 97.5 F L Pulse Rate 98 107 H Pulse Rate [Pulse Oximeter] Respiratory Rate 18 Blood Pressure Blood Pressure [Right Arm] 113/65 Pulse Oximetry 90 Oxygen Delivery Method Oxygen Flow Rate 08/11/22 15:00 08/11/22 15:00 08/11/22 13:00 Temperature Pulse Rate Pulse Rate [Pulse Oximeter] 98 Respiratory Rate 21 21 18 Blood Pressure Blood Pressure [Right Arm] 128/65 Pulse Oximetry 93 88 Oxygen Delivery Method Nasal Cannula Nasal Cannula Oxygen Flow Rate 1.5 2 08/11/22 13:15 08/11/22 13:30 08/11/22 13:45 Temperature Pulse Rate Pulse Rate [Pulse Oximeter] 91 87 87 Respiratory Rate 18 18 18 Blood Pressure Blood Pressure [Right Arm] 116/51 L 111/62 111/51 L Pulse Oximetry 90 90 94 Oxygen Delivery Method Nasal Cannula Nasal Cannula OxyMask Oxygen Flow Rate 2 2 2 08/11/22 14:00 08/11/22 14:30 08/11/22 15:00 Temperature 99.4 F Pulse Rate Pulse Rate [Pulse Oximeter] 90 105 H 97 Respiratory Rate 21 Blood Pressure Blood Pressure [Right Arm] 105/54 L 116/52 L Pulse Oximetry 94 93 93 Oxygen Delivery Method OxyMask OxyMask OxyMask Oxygen Flow Rate 2 1.5 1.5 08/11/22 16:00 08/11/22 17:00 08/11/22 18:00 Temperature 99.3 F 99.4 F 99.4 F Pulse Rate Pulse Rate [Pulse Oximeter] 97 97 97 Respiratory Rate 20 20 20 Blood Pressure Blood Pressure [Right Arm] 115/52 L 112/53 L 97/48 L Pulse Oximetry 94 94 91 Oxygen Delivery Method OxyMask OxyMask OxyMask Oxygen Flow Rate 1.5 1.5 1 08/11/22 20:19 08/11/22 22:22 08/11/22 23:00 Temperature 98.0 F 98.5 F Pulse Rate Pulse Rate [Pulse Oximeter] 87 97 Respiratory Rate 20 20 Blood Pressure Blood Pressure [Right Arm] 121/51 L 111/51 L Pulse Oximetry 91 93 93 Oxygen Delivery Method Room Air OxyMask Oxygen Flow Rate 1 08/11/22 23:00 08/11/22 23:00 08/12/22 03:28 Temperature 98.1 F Pulse Rate 89 Pulse Rate [Pulse Oximeter] 90 Respiratory Rate 20 18 Blood Pressure Blood Pressure [Right Arm] 131/68 Pulse Oximetry 93 91 Oxygen Delivery Method OxyMask OxyMask Oxygen Flow Rate 1 1 Assessment and Plan Assessment and plan (1) Closed right hip fracture: Problem details: underwent surgery 08/11 Status: Acute Assessment and Plan: Plan for discharge is to a detention facility when he meets discharge criteria. DVT prophylaxis includes Xarelto 10 mg daily for total of 5 days, then aspirin 81 mg twice daily for 30 days, Sreekanth stockings x1 month may remove for 1 hr per day, frequent ambulation Remove dressing 1 week. Observe wound and phone Orthopedics with any questions or concerns Use Ice on operative hip unrestricted. Return to clinic in [address] Michaels Minimize narcotic use. Wean off and discontinue soon as possible. He can weightbear in right lower extremity if tolerated. Waiting on director social service for detention facility No discharge orthopedic meds have been written due to waiting for placement pharmacy. (2) Severe chronic obstructive pulmonary disease: Problem details: Continue home meds, O2 as needed. Status: Acute (3) Mild cognitive impairment: Problem details: OT consult Status: Acute (4) On home oxygen therapy: Problem details: 2 L at baseline, sounds like this is a mix of COPD and AARON. Status: Acute (5) Thrombocythemia: Status: Acute (6) Chronic kidney disease: Status: Acute (7) Obstructive sleep apnea: Status: Acute (8) Hypertension: Problem details: Monitor. Hold antihypertensives for now. Status: Acute (9) Type 2 diabetes mellitus: Problem details: Sliding scale insulin, Accu-Cheks. Status: Acute
[2022-08-12] MEDS: RIVAROXABAN 10 MG TABLET PO (11:31)
--- NOTE | 2022-08-12 11:52 | P.IMPN_ITS ---
Progress Note: A&P Assessment and plan (1) Closed right hip fracture: Problem details: underwent surgery 08/11 pod #1 dvt ppx on xarelto Status: Acute Assessment and Plan: pain control; diet; dvt ppx per surgery shivani hinton (2) Chronic kidney disease: Status: Acute (3) Thrombocythemia: Status: Acute (4) Obstructive sleep apnea: Status: Acute (5) On home oxygen therapy: Problem details: 2 L at baseline, sounds like this is a mix of COPD and AARON. Status: Acute (6) Mild cognitive impairment: Problem details: OT consult Status: Acute (7) Hypertension: Problem details: Monitor. Hold antihypertensives for now. Status: Acute (8) Type 2 diabetes mellitus: Problem details: Sliding scale insulin, Accu-Cheks. Status: Acute Assessment and Plan: additional levemir and aspart given today due to hyperglycemia; 30 units of Levemir tonight (9) Severe chronic obstructive pulmonary disease: Problem details: Continue home meds, O2 as needed. Status: Acute (10) Hyperkalemia: Problem details: potassium 5.9; underlying CKD3; will treat with IVF bolus and lasix; repeat potassium Status: Acute Time Spent With Patient Total time spent: Dispo will need SNF Subjective Date Seen: 08/12/22 Interval history: patient hyperglycemic this AM; additional levemir and aspart ordered denies nausea and vomiting POD #1 s/p Right hip fracture, status post IM rodding Exam Narrative: Exam Narrative: Gen: no acute distress HEENT: NCAT EOMI mmm CV: RRR normal s1 s2 Lungs: CTAB Abd: Soft,nt, nd Neuro: Alert, oriented, CN grossly intact; Psych: appropriate affect MSK: age appropriate muscle mass : Dina in place Const: Vital Signs, click to edit/add: Vital Signs - 24 hr 08/11/22 12:14 08/11/22 12:25 08/11/22 12:20 Temperature 97.6 F Pulse Rate 85 87 86 Pulse Rate [Pulse Oximeter] Respiratory Rate 18 17 16 Blood Pressure 105/48 L 107/57 L 104/47 L Blood Pressure [Ri ght Arm] Pulse Oximetry 92 96 91 Oxygen Delivery Me thod Room Air Nasal Cannula Oxygen Flow Rate 2 08/11/22 12:30 08/11/22 12:35 08/11/22 12:40 Temperature 97.5 F L Pulse Rate 91 94 96 Pulse Rate [Pulse Oximeter] Respiratory Rate 16 17 17 Blood Pressure 85/74 L 130/55 L 104/54 L Blood Pressure [Ri ght Arm] Pulse Oximetry 96 97 91 Oxygen Delivery Me thod Nasal Cannula Nasal Cannula Nasal Cannula Oxygen Flow Rate 2 2 2 08/11/22 12:59 08/11/22 15:00 08/11/22 15:00 Temperature 97.5 F L Pulse Rate 98 107 H Pulse Rate [Pulse Oximeter] Respiratory Rate 18 Blood Pressure Blood Pressure [Ri ght Arm] 113/65 Pulse Oximetry 90 Oxygen Delivery Me thod Oxygen Flow Rate 08/11/22 15:00 08/11/22 15:00 08/11/22 13:00 Temperature Pulse Rate Pulse Rate [Pulse Oximeter] 98 Respiratory Rate 21 21 18 Blood Pressure Blood Pressure [Ri ght Arm] 128/65 Pulse Oximetry 93 88 Oxygen Delivery Me thod Nasal Cannula Nasal Cannula Oxygen Flow Rate 1.5 2 08/11/22 13:15 08/11/22 13:30 08/11/22 13:45 Temperature Pulse Rate Pulse Rate [Pulse Oximeter] 91 87 87 Respiratory Rate 18 18 18 Blood Pressure Blood Pressure [Ri ght Arm] 116/51 L 111/62 111/51 L Pulse Oximetry 90 90 94 Oxygen Delivery Me thod Nasal Cannula Nasal Cannula OxyMask Oxygen Flow Rate 2 2 2 08/11/22 14:00 08/11/22 14:30 08/11/22 15:00 Temperature 99.4 F Pulse Rate Pulse Rate [Pulse Oximeter] 90 105 H 97 Respiratory Rate 21 Blood Pressure Blood Pressure [Ri ght Arm] 105/54 L 116/52 L Pulse Oximetry 94 93 93 Oxygen Delivery Me thod OxyMask OxyMask OxyMask Oxygen Flow Rate 2 1.5 1.5 08/11/22 16:00 08/11/22 17:00 08/11/22 18:00 Temperature 99.3 F 99.4 F 99.4 F Pulse Rate Pulse Rate [Pulse Oximeter] 97 97 97 Respiratory Rate 20 20 20 Blood Pressure Blood Pressure [Ri ght Arm] 115/52 L 112/53 L 97/48 L Pulse Oximetry 94 94 91 Oxygen Delivery Me thod OxyMask OxyMask OxyMask Oxygen Flow Rate 1.5 1.5 1 08/11/22 20:19 08/11/22 22:22 08/11/22 23:00 Temperature 98.0 F 98.5 F Pulse Rate Pulse Rate [Pulse Oximeter] 87 97 Respiratory Rate 20 20 Blood Pressure Blood Pressure [Ut ght Arm] 121/51 L 111/51 L Pulse Oximetry 91 93 93 Oxygen Delivery Me thod Room Air OxyMask Oxygen Flow Rate 1 08/11/22 23:00 08/11/22 23:00 08/12/22 03:28 Temperature 98.1 F Pulse Rate 89 Pulse Rate [Pulse Oximeter] 90 Respiratory Rate 20 18 Blood Pressure [facility] 131/68 Pulse Oximetry 93 91 Oxygen Delivery Me thod OxyMask OxyMask Oxygen Flow Rate 1 1 Labs Labs: Laboratory Results - last 24 hr 08/12/22 08/12/22 06:16 06:16 WBC 6.42 RBC 3.18 L Hgb 11.3 L Hct 34.5 L MCV 109 H MCH 36 H MCHC 33 RDW Coeff of Khushboo 13.0 Plt Count 269 Neut % (Auto) 78.8 H Lymph % (Auto) 17.6 L [place] % (Auto) 2.8 Eos % (Auto) 0.3 Baso % (Auto) 0.2 Neut # (Auto) 5.10 Lymph # (Auto) 1.10 [place] # (Auto) 0.20 Eos # (Auto) 0.02 Baso # (Auto) 0.01 Diff Slide Review Acceptable Review Sodium 133 L Potassium 5.9 H Chloride 104 Carbon Dioxide 27 BUN 26 Creatinine 1.2 Estimated Creat Clear 52.90 Estimated GFR 62 Glucose 495 H* Calcium 8.1 L
[2022-08-12] MEDS: 0.9 % SODIUM CHLORIDE 1000 ml 1,000 ML 75 ML IV (12:37)
[2022-08-12 13:39] LABS: Potassium* 4.3 mmol/L (3.6-5.1)
[2022-08-12] MEDS: HYDROXYUREA 500 MG CAPSULE PO (14:41)
--- NOTE | 2022-08-12 20:16 | PC.NURSE ---
Nursing Care Hours: [id number] Pt this shift calm and cooperative with cares. VSS. Hinton DC'd, scant bright red blood at tip of catheter and urethra, small dark bits of sediment in the catheter tubing, pt tolerated well. Struggled with first void post hinton removal using urinal at bedside. Successful with void on toilet. Pale yellow output with 1 small blood clot spotted at bottom of toilet. Bandage on R hip CDI. Pain at rest reported 0/10 but with movement reported 8/10. Treated per eMAR. Tricot Knitting Machine Operator encouraged pt to attempt to move leg more while in bed and chair and if there is pain, to ask for pain medication. Pt did not tolerate ambulation, too much pain and weakness in R leg. DC'd tele. NS running at 75ml/hr. BS was critical in morning lab, titrated down to 88 by end of shift following MD orders in eMAR.
[2022-08-12] MEDS: MONTELUKAST 10 MG TABLET PO (22:14)
[2022-08-13] VITALS (7 sets, daily range): BP systolic 111–151; BP diastolic 46–85; PULSE 82–93; RESP 20–24; TEMP 36.4–36.8; O2SAT 90–95
[2022-08-13] MEDS: 0.9 % SODIUM CHLORIDE 1000 ml 1,000 ML 75 ML IV (03:00)
[2022-08-13] MEDS: ACETAMINOPHEN 325 MG TABLET 650 MG PO ×4 (03:01→22:02)
--- NOTE | 2022-08-13 05:11 | PC.NURSE ---
[id number]: Patient pleasant and cooperative. Denies pain at rest but pain has considerable pain w/movement. PRN Oxycodone for relief before transfers. Heavy A2/walker/GB. 1 Lt O2 at noc. Dressings to R. hip C/D/I. Active ice to op site. Eating and voiding.
[2022-08-13] MEDS: OXYCODONE 5 MG TABLET PO ×2 (06:07→22:03)
[2022-08-13 07:07] LABS: Basophils Absolute Auto 0.03 K/uL (0.00-0.30); Basophils Percent Auto 0.5 % (0.0-3.0); Eosinophils Percent Auto 11.6 % (0.0-7.0); Hemoglobin* 11.2 gm/dL (13.5-17.5); Lymphocytes Absolute Auto 2.07 K/uL (0.90-2.90); Lymphocytes Percent Auto 36.8 % (20-44); Mean Corpuscular HGB Conc 33 gm/dL (32-36); Mean Corpuscular Hemoglobin 35 pg (26-34); Mean Corpuscular Volume 107 fL (80-100); Monocytes Percent Auto 2.8 % (0.0-11.0); Neutrophils Absolute Auto 2.71 K/uL (1.7-7.0); Neutrophils Percent Auto 48.3 % (42.0-72.0); Platelet Count* 301 K/uL (140-440); Red Blood Count 3.17 m/uL (4.30-5.90); White Blood Count* 5.62 K/uL (4.50-11.00)
[2022-08-13 07:13] LABS: Slide Review Reflex No
[2022-08-13 07:16] LABS: Chloride* 105 mmol/L (96-114); Potassium* 4.4 mmol/L (3.6-5.1); Sodium* 135 mmol/L (135-149)
[2022-08-13 07:18] LABS: Est. Creatinine Clearance* 63.48; Estimated Glomerular Filt Rate 77 ml/min
[2022-08-13 07:19] LABS: Blood Urea Nitrogen* 29 mg/dL (7-30); Calcium* 8.2 mg/dL (8.4-10.6); Carbon Dioxide* 31 mmol/L (20-32); Glucose* 211 mg/dL (60-115)
[2022-08-13] MEDS: FLUTICASONE PROPIONATE NASAL 1 SPRAY NOSTRIL-B ×2 (09:04→22:04)
[2022-08-13] MEDS: SENNOSIDES 1 TAB TABLET 2 TAB PO ×2 (09:04→22:01)
[2022-08-13] MEDS: RIVAROXABAN 10 MG TABLET PO (09:05)
[2022-08-13] MEDS: guaiFENesin 600 MG TAB.ER.12H 1200 MG PO ×2 (09:07→22:01)
[2022-08-13] MEDS: PRAVASTATIN SODIUM 20 MG TABLET 80 MG PO (09:08)
[2022-08-13] MEDS: HYDROXYUREA 500 MG CAPSULE PO (09:08)
--- NOTE | 2022-08-13 09:32 | PM.IMPN1 ---
Progress Note: A&P Assessment and plan (1) Closed right hip fracture: Problem details: underwent surgery 08/11 pod #2 dvt ppx on xarelto continues with slow rehab d/t deformity (baseline) of right ankle, chronic lung disease. stop fluids today Status: Acute (2) Severe chronic obstructive pulmonary disease: Problem details: Continue home meds, O2 as needed. Status: Acute (3) Type 2 diabetes mellitus: Problem details: blood sugars well managed. 168, 265, 219, 88, 214 Status: Acute (4) Hypertension: Problem details: Home meds for BP: Norvasc 5, lisinopril 5 - currently on hold. Status: Acute (5) Obstructive sleep apnea: Problem details: has home CPAP Status: Acute (6) Chronic kidney disease: Problem details: stable. Status: Acute (7) On home oxygen therapy: Problem details: 2 L at baseline, sounds like this is a mix of COPD and AARON. Status: Acute (8) Mild cognitive impairment: Problem details: at baseline. brother and sister bedside. Status: Acute (9) Hyperkalemia: Problem details: resolved. Status: Acute Subjective Date Seen: 08/13/22 Interval history: Daily Progress Note - Hospital Medicine CC: s/p fall, Comminuted intertrochanteric fracture of the right hip Day #: 4 NAME OF OPERATION: Right hip fracture ORIF Date of procedure: 08/11/22, POD #2 SURGEON: Daniele Michaels MD ANESTHESIA: Spinal ESTIMATED BLOOD LOSS: 50 mL OVERNIGHT UPDATES FROM STAFF & MED, LAB, IMAGING UPDATES nursing reports Heavy A2/walker/GB - needs SNF -Rossy is observed today with PT getting up out of bed and using walker to the chair. He has (at a baseline) poor function of the right foot. no active dorsiflexion. He gets hypoxic and tachycardia with this exercise. He has CLD and uses home oxygen at night. so this is a new need during day and activity. He is actively using his aerobika. Afebrile. Current temp is 98.3? F Blood pressure 129/59 Pulse is 85 Respiratory rate 24 Pulse ox 92 Weight is 75 kilos CBC reflects a normal white blood cell count. Fairly stable hemoglobin, 11.2. MCV is elevated 107. Platelets normal. Electrolytes normal today. His renal function is the best it has been since he has been admitted. His sodium is normal. His glucose is 211. blood sugar: 168, 265, 219, 88, 214 Aug update: Still on fluids Xarelto 10 mg daily Levemir is up to 30 units at night, regular insulin is 10 units with meals Oxy was last given, 06 this morning 10:00 a.m. last night, 06 yesterday morning Objective: Vitals: see above Lungs: Clear. Cardiac: S1S2. MSK - Disposition/Potential discharge - Likely to return to previous living situation. Total time is 35 minutes with greater than 50% spent in counseling and coordination of care. Exam Const: Vital Signs, click to edit/add: Vital Signs - 24 hr 08/12/22 11:00 08/12/22 15:00 08/12/22 15:00 Temperature 98 F Pulse Rate [Pulse Oximeter] 69 68 Respiratory Rate 20 20 Blood Pressure [Ri ght Arm] 108/56 L Pulse Oximetry 95 94 Oxygen Delivery Me thod Room Air Oxygen Flow Rate 08/12/22 15:00 08/12/22 15:00 08/12/22 20:57 Temperature 97.8 F Pulse Rate [Pulse Oximeter] 68 83 Respiratory Rate 20 20 22 Blood Pressure [Ri ght Arm] 119/52 L 131/52 L Pulse Oximetry 94 94 91 Oxygen Delivery Me thod Room Air Room Air Room Air Oxygen Flow Rate 1.0 08/12/22 23:40 08/12/22 23:00 08/12/22 23:00 Temperature 98.1 F Pulse Rate [Pulse Oximeter] 86 Respiratory Rate 24 22 Blood Pressure [Ri ght Arm] 145/61 H Pulse Oximetry 93 93 93 Oxygen Delivery Me thod Nasal Cannula Nasal Cannula Oxygen Flow Rate 1.0 1.0 08/13/22 02:56 Temperature 98.3 F Pulse Rate [Pulse Oximeter] 85 Respiratory Rate 24 Blood Pressure [Ri ght Arm] 129/59 L Pulse Oximetry 92 Oxygen Delivery Me thod Nasal Cannula Oxygen Flow Rate 1.0 Labs Labs: Laboratory Results - last 24 hr 08/12/22 08/13/22 08/13/22 12:40 06:08 06:08 WBC 5.62 RBC 3.17 L Hgb 11.2 L Hct 34.0 L MCV 107 H MCH 35 H MCHC 33 RDW Coeff of Khushboo 13.0 Plt Count 301 Neut % (Auto) 48.3 Lymph % (Auto) 36.8 [place] % (Auto) 2.8 Eos % (Auto) 11.6 H Baso % (Auto) 0.5 Neut # (Auto) 2.71 Lymph # (Auto) 2.07 [place] # (Auto) 0.20 Eos # (Auto) 0.70 H Baso # (Auto) 0.03 Sodium 135 Potassium 4.3 4.4 Chloride 105 Carbon Dioxide 31 BUN 29 Creatinine 1.0 Estimated Creat Clear 63.48 Estimated GFR 77 Glucose 211 H Calcium 8.2 L
--- NOTE | 2022-08-13 15:44 | PC.SOCIAL ---
Discharge Planning: SW met with pt, sister (Jun) and brother this morning to discuss d/c planning. Pt resides at [facility] in [place]. Pt has a returned case inspector through [facility] ([phone]) and weekly nurse ([phone]). Pt understands recommendations for s/t rehab and prefers a [place] facility ([facility] or [facility] as first choices and [facility] after that due to familiarity). There is no bed availability at [facility] this week, but there is availability at [facility] and [facility]. Referrals sent. Pt will d/c to [facility] tomorrow. Message left for [facility] Sample Book Maker (Melissa), RN (Liliya), and sister (Jun) with updated information. PAS to be completed: [id number]. No further SW needs at this time.
--- NOTE | 2022-08-13 18:39 | PC.NURSE ---
Pt has been pleasant during shift. Pt is an assist of two with walker with transfers. Pt uses urinal independently. Pt has had no pain throughout shift. Pt has been alert and oriented throughout shift.
[2022-08-13] MEDS: MONTELUKAST 10 MG TABLET PO (22:02)
[2022-08-13] MEDS: SODIUM CHLORIDE 0.9 % (FLUSH) 10 ML SYRINGE 5 ML IVF (22:56)
[2022-08-14] MEDS: OXYCODONE 5 MG TABLET PO ×2 (03:33→06:44)
[2022-08-14] MEDS: ACETAMINOPHEN 325 MG TABLET 650 MG PO ×2 (03:33→08:54)
[2022-08-14 03:35] VITALS: BP 131/69; PULSE 72; RESP 20; TEMP 36.6; O2SAT 94
--- NOTE | 2022-08-14 05:50 | PC.NURSE ---
[id number]: Patient talkative and cooperative. Pain controlled with PRN Oxycodone and scheduled Tylenol. Active ice to op site. Dressings to R. hip C/D/I. Passing gas per patient. 1 Lt NC to maintain O2>88%. Eating and voiding. Denies N/V.
[2022-08-14 06:52] LABS: Hematocrit 35.4 % (37.0-53.0); Hemoglobin* 11.9 gm/dL (13.5-17.5); Mean Corpuscular HGB Conc 34 gm/dL (32-36); Mean Corpuscular Hemoglobin 36 pg (26-34); Mean Corpuscular Volume 106 fL (80-100); Platelet Count* 323 K/uL (140-440); Red Blood Count 3.34 m/uL (4.30-5.90); White Blood Count* 5.46 K/uL (4.50-11.00)
[2022-08-14 06:56] LABS: Slide Review Reflex No
[2022-08-14 06:59] LABS: Potassium* 3.9 mmol/L (3.6-5.1); Sodium* 138 mmol/L (135-149)
[2022-08-14 07:02] LABS: Blood Urea Nitrogen* 20 mg/dL (7-30); Creatinine* 0.8 mg/dL (0.5-1.5); Est. Creatinine Clearance* 63.48; Estimated Glomerular Filt Rate 90 ml/min
[2022-08-14 07:38] VITALS: BP 133/64; PULSE 76; RESP 16; TEMP 36.1; O2SAT 96
[2022-08-14] MEDS: guaiFENesin 600 MG TAB.ER.12H 1200 MG PO (08:54)
[2022-08-14] MEDS: SENNOSIDES 1 TAB TABLET 2 TAB PO (08:54)
[2022-08-14] MEDS: PRAVASTATIN SODIUM 20 MG TABLET 80 MG PO (08:54)
[2022-08-14] MEDS: HYDROXYUREA 500 MG CAPSULE PO (08:54)
[2022-08-14] MEDS: RIVAROXABAN 10 MG TABLET PO (08:54)
[2022-08-14] MEDS: SODIUM CHLORIDE 0.9 % (FLUSH) 10 ML SYRINGE 5 ML IVF (08:55)
[2022-08-14] MEDS: FLUTICASONE PROPIONATE NASAL 1 SPRAY NOSTRIL-B (08:57)
--- NOTE | 2022-08-14 10:06 | P.DS_ITS ---
DS: Providers Provider Date Seen: 08/14/22 Date of admission: 08/10/22 18:06 Primary care physician: Mario Mazariegos MD Admitting Clinician: Miriam Oreilly MD Consults: 08/10/22 18:06 Consult to Occupational Therapy [CONS] Routine Comment: Reason(s) for OT Consult:: Evaluate and Treat Any Restrictions?:: No Restrictions Consult to Physical Therapy [CONS] Routine Comment: Reason(s) for PT Consult:: Evaluate and Treat Any Restrictions?:: No Restrictions Consult to Pathology Technologist [CONS] Routine Comment: Reason for Consult:: Social Service Consult 08/11/22 08:38 Consult to Respiratory Therapy [CONS] Routine Comment: Reason(s) for RT Consult:: Consult Comment: oxygen saturations decrease to 75-83% with minimal activity, congested cough, known CO2 retainer 08/11/22 12:59 Consult to Occupational Therapy [CONS] Routine Comment: Reason(s) for OT Consult:: Evaluate and Treat Any Restrictions?:: See Comment Comment: evaluate and treat Consult to Physical Therapy [CONS] Routine Comment: Reason(s) for PT Consult:: Evaluate and Treat Any Restrictions?:: See Comment Comment: Weightbear as tolerates right lower extremity Consult to Pathology Technologist [CONS] Routine Comment: Reason for Consult:: Discharge Planning Needs Attending Physician on discharge: Miriam Oreilly MD Date of Discharge: 08/14/22 DS: Diagnosis Discharge Diagnosis (1) Closed right hip fracture: Status: Acute Problem details: fall ORIF right hip, 08/11/22. Dr Michaels, [facility] rehab d/t deformity (baseline) of right ankle, chronic lung disease. SNF recommended for rehab (2) Severe chronic obstructive pulmonary disease: Status: Acute Problem details: Changed Advair to BID, continued flonase, added Mucinex, adding Spiriva to his home regimen. Nebulized DuoNeb's and albuterol MDI prn. O2 was previously to hip fracture only at night; needing O2 with exertion now. (3) Mild cognitive impairment: Status: Acute Problem details: At baseline at discharge (4) On home oxygen therapy: Status: Acute Problem details: 2 L at baseline, sounds like this is a mix of COPD and AARON. (5) Chronic kidney disease: Status: Acute Problem details: stable. (6) Obstructive sleep apnea: Status: Acute Problem details: has home CPAP (7) Hypertension: Status: Acute Problem details: Norvasc 5, lisinopril 5 (8) Type 2 diabetes mellitus: Status: Acute Problem details: insulin dependent DS: Summary Hospital Course Hospital Course: HOSPITALIST DISCHARGE SUMMARY ATTENDING PHYSICIAN: Miriam Oreilly MD FINAL DIAGNOSIS: Hip fracture after fall. Status post ORIF, right hip on 08/11/2022 Severe COPD Mild cognitive decline HOSPITAL FOLLOWUP ISSUES: 1. Oxygen-dependent COPD. Mild CO2 retention. I did add Spiriva to his outpatient regimen which can be started at his shelter stay. A added Mucinex 1200 mg b.i.d.. I increased his Advair to the recommended b.i.d. dosing instead of q.a.m.. He can have albuterol nebs and or MDI and DuoNebs as needed. His baseline is needing oxygen at night, currently he needs this with any exertion. Likely this will be able to be weaned as he progresses through rehab. Keep O2 at 1-2L secondary to chronic hypercarbia. 2. Right hip fracture, status post ORIF. Arrangements have been made for him to follow-up with [place] [facility]. Prophylaxis for VTE will be a total of 10 days of Xarelto and then aspirin b.i.d. for another 20 days. He then can return to his aspirin daily. Pain control has been very good. Use opioid sparingly. Use scheduled Tylenol is your base. REFERRALS WHILE ADMITTED: PT/OT REFERRALS AFTER DISCHARGE: Same BRIEF HOSPITAL COURSE: Rossy lives in senior apartments with home health support. He fell and broke his right hip. And uncomplicated repair. However given his oxygen-dependent COPD and cognitive decline he will need shelter facility for continued rehab. See above the details of managing his COPD. His prophylaxis is reynaldo cribed above. SUBSTANTIVE NOTATIONS ON IMAGING, LAB, MICROBIOLOGY/PATHOLOGY STUDIES: -Comminuted intertrochanteric fracture of the right hip with mild right hip soft tissue swelling. During surgery: -intramedullary right femoral yamilex. -Right intertrochanteric pin. DISCHARGE MEDICATIONS: See Reconciled list - SIGNIFICANT CHANGES: Adding Spiriva daily Increasing Advair to b.i.d. Adding Mucinex 1200 b.i.d. Xarelto, b.i.d. aspirin as described above for a short period of VTE prophylaxis REVIEW OF SYSTEMS No new chest pain or dyspnea Pain controlled No voiding difficulties Tolerating diet challenge PHYSICAL EXAM: CONSTITUTIONAL: Alert, interactive. VITAL SIGNS: see record. HEENT: Normocephalic, atraumatic. PERRL, EOMI, conjunctivae pink, no scleral icterus. Ears and nose externally normal. Pharynx normal. NECK: No JVD. No carotid bruit, no thyromegaly, no adenopathy. CHEST: Clear to auscultation bilaterally. HEART: S1 and S2 normal. No Edema ABDOMEN: Soft, nontender. Normal bowel sounds. MUSCULOSKELETAL: Chronic deformity of the right ankle noted. No dorsiflexion noted. Surgical site, right hip, is clean dry without drainage NEURO: Cranial nerves intact. Grossly intact. No asymmetric findings. SKIN: No rashes, petechiae, concerning changes PSYCHIATRIC: Mood euthymic. [facility] Time spent on discharge 37 minutes. Status at Discharge Functional status at discharge: uses cane/walker Overall status at discharge: patient is progressing back to baseline Time Spent with Patient Time attestation: Total time spent providing and/or coordinating discharge services: Time spent: Greater than 30 minutes Exam Const: Vital Signs, click to edit/add: Vital Signs - 24 hr 08/13/22 11:10 08/13/22 15:00 08/13/22 15:00 Temperature 97.5 F L Pulse Rate [Pulse Oximeter] 84 Respiratory Rate 20 20 Blood Pressure [Ri t Arm] 111/85 Pulse Oximetry 94 93 93 Oxygen Delivery Me thod Nasal Cannula Nasal Cannula Oxygen Flow Rate 1 1 08/13/22 15:00 08/13/22 15:00 08/13/22 20:26 Temperature 98.0 F 98.1 F Pulse Rate [Pulse Oximeter] 91 93 92 Respiratory Rate 20 20 20 Blood Pressure [Ri ght Arm] 123/70 151/71 H Pulse Oximetry 93 95 Oxygen Delivery Me thod Nasal Cannula Nasal Cannula Oxygen Flow Rate 1 1 08/13/22 22:34 08/13/22 23:00 08/13/22 23:00 Temperature 98.1 F Pulse Rate [Pulse Oximeter] 82 Respiratory Rate 20 20 Blood Pressure [Ri ght Arm] 123/46 L Pulse Oximetry 93 93 93 Oxygen Delivery Me thod Nasal Cannula Nasal Cannula Oxygen Flow Rate 1 1 08/14/22 03:35 08/14/22 07:38 08/14/22 07:38 Temperature 97.9 F Pulse Rate [Pulse Oximeter] 72 Respiratory Rate 20 16 Blood Pressure [Ri t Arm] 131/69 Pulse Oximetry 94 96 96 Oxygen Delivery Me thod Nasal Cannula Oxygen Flow Rate 1 1 08/14/22 07:38 08/14/22 07:38 Temperature 97.0 F L Pulse Rate [Pulse Oximeter] 76 76 Respiratory Rate 16 [facility] 133/64 Pulse Oximetry 96 Oxygen Delivery Me thod Nasal Cannula Oxygen Flow Rate 1 DS: Data Data Completed and Pending Labs on day of discharge: Labs from last 24 hours 08/14/22 08/14/22 05:58 05:58 WBC 5.46 RBC 3.34 L Hgb 11.9 L Hct 35.4 L MCV 106 H MCH 36 H MCHC 34 Plt Count 323 Sodium 138 Potassium 3.9 BUN 20 Creatinine 0.8 Estimated Creat Clear 63.48 Estimated GFR 90 Discharge Plan Discharge Disposition: [facility] Date of Admission: 08/10/22 18:06 Attending Provider on Discharge: Miriam Oreilly Primary Care Provider: Mario Mazariegos Condition: Improved Anticipated Discharge Date/Time: 08/14/22 10:06 Discharge Medications: New sennosides [Senna Lax] 8.6 mg Tablet 17.2 mg PO BID Qty: 60 0RF acetaminophen 325 mg Tablet 650 mg PO Q6H Qty: 90 3RF ipratropium-albuterol 0.5 mg-3 mg(2.5 mg base)/3 mL Solution For Nebulization 1.5 ml inhalation Q2H PRNQty: 180 0RF bisacodyl 10 mg Suppository 10 mg [place] DAILY PRN (Reason: Constipation) Qty: 12 0RF albuterol sulfate [Ventolin HFA] 90 mcg/actuation Hfa Aerosol Inhaler 2 puff inhalation Q2H PRNQty: 8.5 3RF fluticasone propionate 50 mcg/actuation [place],Suspension 1 spray intranasal BID Qty: 16 0RF oxycodone 5 mg Tablet 2.5 - 10 mg PO Q2H PRN (Reason: Pain) Qty: 30 0RF insulin aspart U-100 [Novolog FlexPen U-100 Insulin] 100 unit/mL (3 mL) Insulin Pen 10 unit subcut TIDWM Qty: 15 0RF Xarelto 10 mg Tablet 10 mg PO DAILY Qty: 7 0RF guaifenesin [Mucinex] 600 mg Tablet Extended Release 12hr 1,200 mg PO BID Qty: 90 0RF Fluticasone Propion-Salmeterol 1 inh inhalation BID Qty: 1 3RF aspirin 81 mg tablet,delayed release (DR/EC) 81 mg PO BID Qty: 60 0RF Rx Instructions: start this after you have finished Xarelto and complete 20 days of BID dosing; then go to daily dosing of aspirin Spiriva with HandiHaler 18 mcg capsule, w/inhalation device 1 cap inhalation DAILY Qty: 60 2RF Rx Instructions: puncture 1 cap using device; one dose = 2 inhalations (DME) nebulizer and compressor Device See Rx Instructions .Route Qty: 1 0RF Rx Instructions: As directed (DME) nebulizer accessories Kit See Rx Instructions .Route Qty: 1 0RF Rx Instructions: As directed Continued amlodipine 5 mg tablet 5 mg PO DAILY Label Comments: TAKE ONE TABLET (5MG) BY MOUTH ONCE DAILY cetirizine 10 mg tablet 10 mg PO DAILY Label Comments: TAKE 1 TABLET (10 MG) BY MOUTH ONCE DAILY. hydroxyurea 500 mg capsule 500 mg PO DAILY Label Comments: TAKE 1 CAPSULE (500 MG) BY MOUTH ONCE DAILY. Toujeo SoloStar U-300 Insulin 300 unit/mL (1.5 mL) insulin pen 30 unit SUBCUT HS Label Comments: INJECT 30 UNITS AT BEDTIME. lisinopril 5 mg tablet 5 mg PO DAILY Label Comments: TAKE 1 TABLET (5 MG) BY MOUTH ONCE DAILY. montelukast 10 mg tablet 10 mg PO HS Label Comments: TAKE 1 TABLET BY MOUTH AT BEDTIME. pravastatin 80 mg tablet 80 mg PO DAILY Label Comments: TAKE 1 TABLET (80 MG) BY MOUTH AT BEDTIME. Held aspirin 81 mg tablet,delayed release (DR/EC) 81 mg PO DAILY Hold Instructions: Resume on 09/09/22. while on Xarelto and twice a day aspirin. 09/09 should be first day back to daily aspirin. Label Comments: TAKE ONE TABLET BY MOUTH DAILY WITH A MEAL Discontinued fluticasone propion-salmeterol 500-50 mcg/dose blister with device 1 inh INHALATION DAILY Label Comments: INHALE 1 PUFF BY MOUTH EVERY 12 HOURS. fluticasone propionate 50 mcg/actuation spray,suspension 1 spray INTRANASAL Q12H Label Comments: INHALE 1 SPRAY IN EACH NOSTRIL 2 TIMES DAILY melatonin 3 mg capsule 3 mg PO DAILY insulin lispro 100 unit/mL insulin pen 10 unit SUBCUT TIDWM Label Comments: INJECT 10 UNITS SUBCUTANEOUSLY WITH EACH MEAL, ADD 1 UNIT IF BS 150-200 2 UNITS 201-250 3 UNITS 251-300 4 UNITS 301-350 5 UNITS 251-400 Discharge Orders: Discharge Order (Routine); Ordered 08/14/22 Ordered By: Miriam Oreilly Consulting provider completed their portion of the discharge: Yes Additional Instructions: For COPD: keep oxygen on as needed to keep sats 88-92%, Advair inhaler is twice a day, mucinex is twice a day, Spiriva inhaler every morning; albuterol and duonebs as needed. Consider having therapy get an AFO for that right ankle. It is weak and tends to roll (baseline). Activity Level: Weight Bearing as Tolerated Discharge Diet: Diabetic Follow Up Appointments: Mario Mazariegos MD [Primary Care Provider] - Discharge Comments: Return appointment with Dr. Michaels in 6 weeks. [phone] Admit to: SNF Discharge Potential: Fair Length of Stay: 30-90 days Can use facility standing orders?: Yes Code Status: DNR/DNI TEDs: N/A Rehab Potential: Fair Therapy: Physical Therapy and Occupational Therapy Therapy Orders: Evaluate and Treat Therapy Orders Additional Information: PT and OT daily at shelter facility, WB as tolerated right lower ex Oxygen: Yes Oxygen Delivery Method: Nasal Cannula Oxygen Flow Rate: 1-2 L per NC to keep sats >88%. Do not increase oxygen to greater than 3L. Urinary Catheter: No Orders are good >30 days: Yes
--- NOTE | 2022-08-14 11:40 | PC.NURSE ---
Pt calm and cooperative during shift. Pt is up with an assist of one and a walker. Pt has had no pain during shift. Pt had low blood glucose of 34 at 730am. MD notified Pt given orange juice with sugar and breakfast ordered. Pt's blood glucose was rechecked 30 minuets after and had raised to 50. Pt still eating breakfast. Pt?s blood glucose rechecked an hour later and was 105. Insulin was held this AM due to the low blood glucose levels per MD. Pt transferring to [facility] for rehab today at 1pm.
[2022-08-14 11:44] VITALS: TEMP -17.7; TEMP 0
[2022-08-14] MEDS: polyethylene glycoL 3350 17 GM PACK PO (11:55)
== END 2022-08-14 13:00 | DRG 481 ==
LOC: ED 17:40 → MEDSURG 17:43
PROVIDERS: Hospitalist; Orthopaedic Surgery; Admitting Provider Family Medicine; Emergency Provider Emergency Medicine; PCP Family Medicine; Visit Provider Family Medicine
PROC: 0QS606Z Reposition Right Upper Femur with Intramedullary Internal Fixation Device, Open Approach (ICD-10-PCS; CPT 27245; principal; 2022-08-11 11:00)
DX: S72.141A Displaced intertrochanteric fracture of right femur, initial encounter for closed fracture (principal); J90 Pleural effusion, not elsewhere classified; J44.9 Chronic obstructive pulmonary disease, unspecified; Z99.81 Dependence on supplemental oxygen; G47.33 Obstructive sleep apnea (adult) (pediatric); G31.84 Mild cognitive impairment of uncertain or unknown etiology; E87.5 Hyperkalemia; W19.XXXA Unspecified fall, initial encounter; Y92.039 Unspecified place in apartment as the place of occurrence of the external cause; I12.9 Hypertensive chronic kidney disease with stage 1 through stage 4 chronic kidney disease, or unspecified chronic kidney disease; E11.22 Type 2 diabetes mellitus with diabetic chronic kidney disease; Z79.4 Long term (current) use of insulin; D75.839 Thrombocytosis, unspecified; N18.30 Chronic kidney disease, stage 3 unspecified; E11.65 Type 2 diabetes mellitus with hyperglycemia; Z86.12 Personal history of poliomyelitis
CPT/HCPCS: 01230; 36415; 71045; 73502; 76000; 76942; 80048; 81003; 81015; 82330; 82565; 82803; 82962; 83036; 83605; 83735; 83880; 84132; 84295; 84484; 84520; 85025; 85027; 85610; 86140; 87502; 87634; 87635; 93005; 94640; 94761; 97110; 97116; 97161; 97165; 97530; 97535; 99140; 99284; 99285; A9270; C1713; C9113; J0690; J1100; J1170; J1940; J2060; J2250; J2370; J2405; J2704; J2795; J3010; J3490; J7030; J7120; S0176

== ENCOUNTER 2022-08-14 09:27 | Inpatient (IN) | payer MEDICAID, OTHER, SELFPAY ==
--- NOTE | 2022-08-14 12:33 | P.ORPN_ITS ---
Subjective Subjective Time Seen by Provider: 09:30 Date Seen: 08/14/22 Principal diagnosis: Status post right hip fracture ORIF, IM jose. Interval history: Patient is going to assisted facility today. He states walking has been better than Saturday when I last saw him walk. He states he is able to walk from her side of his bed to his chair today. Ortho Exam Narrative Exam Narrative: Alert. Patient is in no acute distress. Converses without labored breathing. Hearing is grossly intact. Ambulates with a walker. Examination of the right lower extremity shows dressings are intact. Mild soft tissue edema about the right hip. Sreekanth stockings are in place bilateral calf soft and nontender. CMS grossly intact right lower extremity. Difficulty with right foot and ankle due to polio hx. Const Documenting provider has reviewed patient's vital signs: yes Assessment and Plan Assessment and plan (1) History of open reduction and internal fixation (ORIF) procedure: Problem details: Right hip Status: Acute Assessment and Plan: Plan for discharge is today to assisted facility they meet discharge criteria. DVT prophylaxis includes Xarelto 10 mg daily for total of 12 days, then aspirin 81 mg twice daily for 20 days, Sreekanth stockings x1 month may remove for 1 hr per day, frequent ambulation, weight bear as tolerated right lower extremity. Remove dressing 1 week. Observe wound and phone Orthopedics with any questions or concerns Use Ice on operative hip unrestricted. Return to clinic in [address] Michaels Minimize narcotic use. Wean off and discontinue soon as possible. OT and PT at assisted facility daily. I also discussed with the patient that I encouraged him to work on upper body strength. This is also written on his PT order. We discussed things he can do in his room for upper body strengthening at the assisted [facility] for he will have a lot of down time. He agrees. All questions were answered.
--- NOTE | 2022-08-14 13:00 | PC.NURSE ---
MEDICARE REP. ADMISSION: Resident was admitted from [facility] today s/p right hip ORIF. Qualifying hospital stay 08/10/22-08/14/22. Today will be the first day of coverage. Resident notified of coverage due to skilled therapy needs following surgery. Resident will receive surgical wound care, pain medication and monitoring, as well as PT/OT 5x/week until resident meets goals.
--- NOTE | 2022-08-14 13:03 | PC.NURSE ---
Admit: Resident was admitted from med/surg via wheelchair and 1 ECONOMICS INSTRUCTOR. Is admitted with DX of R hip fx. Transferred with assist of 1.
[2022-08-14 13:14] VITALS: BP 137/84; PULSE 87; RESP 18; TEMP 36.8; O2SAT 94
[2022-08-14 13:17] VITALS: TEMP 36.8; O2SAT 94
[2022-08-14 17:14] VITALS: BP 140/85; PULSE 87; RESP 18; TEMP 36.8; O2SAT 94
[2022-08-14 17:35] LABS: SARS PCR* Negative SARS-CoV-2 (Negative)
[2022-08-14] MEDS: SENNOSIDES 1 TAB TABLET 2 TAB PO (21:09)
[2022-08-14] MEDS: FLUTICASONE PROPIONATE NASAL 1 SPRAY NOSTRIL-B (21:09)
[2022-08-14] MEDS: MONTELUKAST 10 MG TABLET PO (21:09)
[2022-08-14] MEDS: guaiFENesin 600 MG TAB.ER.12H 1200 MG PO (21:09)
[2022-08-14] MEDS: PRAVASTATIN 80 MG TABLET 1 EACH PO (21:10)
[2022-08-14 21:14] VITALS: BP 137/76; PULSE 78; RESP 18; TEMP 37; O2SAT 94
[2022-08-14] MEDS: ACETAMINOPHEN 325 MG TABLET 650 MG PO (21:27)
[2022-08-14 22:07] VITALS: TEMP 37; O2SAT 94
--- NOTE | 2022-08-14 22:36 | PC.NURSE ---
Resident requested B/L upper bed rails to be in upright position at [facility], for assist in positioning and adjusting bed. CENA notified and will complete formal assessment and administer pamphlet to resident.
--- NOTE | 2022-08-14 22:44 | PC.NURSE ---
Covid BLOOD BANK CALENDAR CONTROL CLERK swab obtained and sent to lab. Results: Negative.
[2022-08-14 23:00] VITALS: TEMP 37.1; O2SAT 95
[2022-08-15] VITALS (7 sets, daily range): BP systolic 93–139; BP diastolic 58–75; PULSE 76–95; RESP 16–18; TEMP 36.4–37.2; O2SAT 93–95
[2022-08-15] MEDS: ACETAMINOPHEN 325 MG TABLET 650 MG PO ×4 (02:53→20:32)
[2022-08-15] MEDS: FLUTICASONE PROPIONATE NASAL 1 SPRAY NOSTRIL-B ×2 (07:51→15:33)
[2022-08-15] MEDS: HYDROXYUREA 500 MG CAPSULE PO (07:51)
[2022-08-15] MEDS: guaiFENesin 600 MG TAB.ER.12H 1200 MG PO ×2 (07:51→15:34)
[2022-08-15] MEDS: AMLODIPINE 5 MG TABLET PO (07:51)
[2022-08-15] MEDS: lisinopriL 5 MG TABLET PO (07:52)
[2022-08-15] MEDS: CETIRIZINE HCL 10 MG TABLET PO (07:52)
[2022-08-15] MEDS: RIVAROXABAN 10 MG TABLET PO (07:52)
[2022-08-15] MEDS: SENNOSIDES 1 TAB TABLET 2 TAB PO ×2 (07:52→15:34)
--- NOTE | 2022-08-15 11:31 | PC.NURSE ---
Medicare Charting: Patient VS stable. BS 144 at 0730 and Insulin administered as ordered. Patient c/o's minor pain to Rt hip with movement, administered scheduled Tylenol 650mg, applied ice and repositioning in his chair at this time. Assist of one with transfer and ambulation. PT/OT continues as scheduled 5x a week. Dressing intact to rt hip.
[2022-08-15] MEDS: FLUTICASONE/SALMETEROL 500/50 INHALER 1 EACH INH (19:33)
[2022-08-15] MEDS: PRAVASTATIN 80 MG TABLET 1 EACH PO (20:32)
[2022-08-15] MEDS: MONTELUKAST 10 MG TABLET PO (20:32)
--- NOTE | 2022-08-15 22:06 | PC.NURSE ---
Blood Glucose: BS check at 1729 was 49. No symptoms of hypoglycemia. Resident given grape juice and crackers immediately. Ate 100% of meal. Held Novolog 10 units. Recheck BS at 1929 was 124. Insulin given at 2029 of scheduled 30 units.
--- NOTE | 2022-08-15 22:14 | PC.NURSE ---
Status: Surgical dressing is dry and intact. Pain is managed with scheduled Tylenol. Took 02 1L nasal cannula off at 2029. Sats at 95%.
[2022-08-16] MEDS: ACETAMINOPHEN 325 MG TABLET 650 MG PO ×4 (03:53→20:11)
--- NOTE | 2022-08-16 05:10 | PC.NURSE ---
Side rail Assessment/Providers Orders/Informed Consent: Completed side rail utilization assessment, RBVO both bed rails up to always promote independence/positioning. Requested by resident. DX: right hip fx per Jennifer Delgado NP. Bed rail informed consent form signed and filed. FDA side rail pamphlet given to resident at this time. Intervention in place/Care Plan and Care Sheets updated.
[2022-08-16 07:00] VITALS: TEMP 37.3; O2SAT 92
[2022-08-16] MEDS: AMLODIPINE 5 MG TABLET PO (07:36)
[2022-08-16] MEDS: lisinopriL 5 MG TABLET PO (07:37)
[2022-08-16] MEDS: HYDROXYUREA 500 MG CAPSULE PO (07:37)
[2022-08-16] MEDS: FLUTICASONE/SALMETEROL 500/50 INHALER 1 EACH INH ×2 (07:37→16:14)
[2022-08-16] MEDS: FLUTICASONE PROPIONATE NASAL 1 SPRAY NOSTRIL-B ×2 (07:37→16:14)
[2022-08-16] MEDS: RIVAROXABAN 10 MG TABLET PO (07:37)
[2022-08-16] MEDS: SENNOSIDES 1 TAB TABLET 2 TAB PO ×2 (07:37→16:14)
[2022-08-16] MEDS: guaiFENesin 600 MG TAB.ER.12H 1200 MG PO ×2 (07:37→16:14)
[2022-08-16] MEDS: CETIRIZINE HCL 10 MG TABLET PO (07:38)
[2022-08-16 10:10] LABS: SARS PCR* Negative SARS-CoV-2 (Negative)
--- NOTE | 2022-08-16 10:28 | PC.NURSE ---
Covid PHOTO SPECIALIST swab obtained and sent to lab. Waiting for Results.
--- NOTE | 2022-08-16 10:51 | PC.NURSE ---
Medicare charting: vitals are stable. Temp is 99.1, encouraging fluids. Complaints of minor pain to right hip surgical site, applied ice and repositioned patient. Resident transfers assist of one and tolerates weight bearing. Surgical sites on right side are clean, dry, and intact. No signs or symptoms of infection noted. Blood sugar was 290 this morning, administered insulin as ordered. Note approved by Santino Garcia RN
[2022-08-16 15:00] VITALS: TEMP 36.7; O2SAT 96
[2022-08-16] MEDS: PRAVASTATIN 80 MG TABLET 1 EACH PO (19:33)
[2022-08-16] MEDS: MONTELUKAST 10 MG TABLET PO (19:33)
[2022-08-16 23:00] VITALS: TEMP 37.1; O2SAT 95
[2022-08-17] MEDS: ACETAMINOPHEN 325 MG TABLET 650 MG PO ×2 (02:38→08:47)
--- NOTE | 2022-08-17 04:27 | PC.NURSE ---
WEEKLY CHARTING - WEEK 4: Vital signs reviewed - BP is variable. Admission care plan reviewed with no change at this time. No documented behaviors since admission. No psychotropic medications. Able to communicate needs. Hears adequately. Wears glasses for visual deficit. Cognitively intact with some forgetfulness. All medications administered by licensed nurse.
--- NOTE | 2022-08-17 07:02 | PC.NURSE ---
Week #4: Baseline care plan reviewed. No changes made. Nothing added to temporary care plan. Resident hears fine. Wears glasses for visual deficit. Does communicate needs and use the call light. Is cognitively intact with some forgetfulness. Admitted to the facility for rehab therapy-PT, OT. Blood sugar checks with some low readings. HEDDLER updated, continue QID monitoring. Vital signs varies. Continue with weekly monitoring. Mood/Behavior: No issues since admission. Is on no psychotropic medications.
--- NOTE | 2022-08-17 07:57 | PC.NURSE ---
Accu Checks: SQUARING SHEAR OPERATOR updated of few low blood sugar readings. Continue to monitor QID.
[2022-08-17] MEDS: AMLODIPINE 5 MG TABLET PO (08:44)
[2022-08-17] MEDS: guaiFENesin 600 MG TAB.ER.12H 1200 MG PO ×2 (08:44→16:18)
[2022-08-17] MEDS: FLUTICASONE PROPIONATE NASAL 1 SPRAY NOSTRIL-B ×2 (08:44→16:18)
[2022-08-17] MEDS: FLUTICASONE/SALMETEROL 500/50 INHALER 1 EACH INH ×2 (08:45→16:18)
[2022-08-17] MEDS: HYDROXYUREA 500 MG CAPSULE PO (08:45)
[2022-08-17] MEDS: lisinopriL 5 MG TABLET PO (08:45)
[2022-08-17] MEDS: SENNOSIDES 1 TAB TABLET 2 TAB PO ×2 (08:46→16:18)
[2022-08-17] MEDS: RIVAROXABAN 10 MG TABLET PO (08:46)
[2022-08-17] MEDS: CETIRIZINE HCL 10 MG TABLET PO (08:47)
--- NOTE | 2022-08-17 10:43 | PC.NURSE ---
Blood Sugar: Blood sugar this morning was 449. Resident had no s/s of hyperglycemia with MD aguirre
[2022-08-17 10:44] VITALS: TEMP 37; O2SAT 94
--- NOTE | 2022-08-17 10:48 | PC.NURSE ---
Medicare: No verbal or nonverbal s/s of pain this shift so far, temp 98.6, O2 94%
--- NOTE | 2022-08-17 12:57 | PC.NURSE ---
Blood Sugar: Blood sugar at 12 noon was 537 using 2 different machines and strips checked. MP updated with no new orders, resident has no s/s of hyperglycemia.
--- NOTE | 2022-08-17 13:35 | PC.NURSE ---
Initial Visit: Resident seen by Dr. Ruelas. Orders reviewed & renewed for 45 days with changes. Order: Change Tylenol to 1000mg TID, Oxycodone (5mg) 1 tab q4h prn, D/C Amlodipine, Decrease Insulin Glargine to 24 u QHS, Insulin Aspart to 8u TID AC, on 08/20 BMP & CBC Continue QID accu checks daily VS x 2 weeks, 02 2L/NC overnight, day 0-2L/NC to keep resting sats over 88%, Insulin sliding scale. See order.
[2022-08-17 15:00] VITALS: TEMP 36.7; O2SAT 93
--- NOTE | 2022-08-17 19:21 | PC.NURSE ---
IDT noted: Resident to be encouraged to ambulate to bathroom to urinated and goal is to be ambulating to meals by the end of next week. Goal for discharge approximately 2 weeks.
[2022-08-17] MEDS: MONTELUKAST 10 MG TABLET PO (20:58)
[2022-08-17] MEDS: NON-FORMULARY MEDICATION 24 EACH SUBCUT (20:58)
[2022-08-17] MEDS: PRAVASTATIN 80 MG TABLET 1 EACH PO (20:58)
--- NOTE | 2022-08-17 21:48 | PC.NURSE ---
Addendum entered by Samanta Early RN 08/17/22 22:07: Stacy On-call provider: Dr Rubin Phillips Original Note: Blood Glucose: Registered Safety Engineer used Accucheck at 1700 per order and received reading from meter Hi. Rechecked with 2 separate meters and received same reading. [place] Program Coordinator consulted and provider contacted. Provider did not think labs necessary to confirm number at this time. 1600 T.O. to administer scheduled 8 units of Novolog with additional 5 units sliding scale for total of 13 units. Recheck and follow up in 2 hours. Recheck completed at 2045 accucheck reading again Hi. Provider contacted and again did not recommend orders for labs to determine definitive blood glucose number. T.O. Give 10 units Novolog once NOW in conjuction with scheduled 24 units of Toujeo solostar insulin. Recheck in 2 hours and call MD with results. Resident is presenting with increased thirst and urination. No additional signs of hyperglycemia.
[2022-08-17 23:00] VITALS: TEMP 37; O2SAT 99
--- NOTE | 2022-08-17 23:41 | PC.NURSE ---
0363 verified 8u Damari with nurse and assist orders per chart and electronic record
--- NOTE | 2022-08-18 06:34 | PC.NURSE ---
Follow up on resident high blood glucose Call was made to on-call Dr Phillips at 2245, resident BG still showing Hi ; order was to give 8 Units of Novolog and recheck in two hours . At 0130 BG is still HI , second order is to give 6 units of Novolog. At 0330, no changes on the BG , call the on-call again , no new order for insulin : check resident in the morning and run lab, this was the order. Report all to the Am Nurse to follow up. Resident is asymptomatic of hyperglycemia, he slept throughout the night.
--- NOTE | 2022-08-18 08:15 | PC.NURSE ---
Status: Residents blood sugar at 8am was noted to be high after checking with 2 different machines. Call placed to [facility] for orders. Awaiting call back
--- NOTE | 2022-08-18 08:35 | PC.NURSE ---
Status: Resident was noted to have had large emesis at 8:30am, call placed to [facility] to update. Awaiting call back
--- NOTE | 2022-08-18 08:40 | PC.NURSE ---
Status: Call back from [facility] with order to send to ED to evaluate per Jennifer Delgado. Resident had 2 more emesis while getting ready to send to ED.Plant Chief took resident to ED. Resident did not take AM medications.
--- NOTE | 2022-08-18 10:36 | PC.NURSE ---
Addendum entered by Rhona Smith LPN 08/18/22 12:46: Spoke to residents sister, unable to get ahold of brother. She was updated about condition. She stated ok for bed hold. Also stated she will be the primary contact. Original Note: Status: Call received from assisted living housekeeper stating that resident will be going to med/surg after ED.
[2022-08-20 06:33] LABS: Basophils Absolute Auto 0.03 K/uL (0.00-0.30); Basophils Percent Auto 0.5 % (0.0-3.0); Eosinophils Percent Auto 11.6 % (0.0-7.0); Hematocrit 29.5 % (37.0-53.0); Hemoglobin* 9.9 gm/dL (13.5-17.5); Immature Granulocytes Abs Auto 0.04 K/uL (0.00-0.30); Immature Granulocytes Pct Auto 0.7 %; Lymphocytes Absolute Auto 2.25 K/uL (0.90-2.90); Lymphocytes Percent Auto 38.3 % (20-44); Mean Corpuscular HGB Conc 34 gm/dL (32-36); Mean Corpuscular Hemoglobin 36 pg (26-34); Mean Corpuscular Volume 108 fL (80-100); Monocytes Percent Auto 3.1 % (0.0-11.0); Neutrophils Percent Auto 45.8 % (42.0-72.0); Platelet Count* 310 K/uL (140-440); RDW Coefficient of Variation % 13.4 % (11.5-15.5); Red Blood Count 2.73 m/uL (4.30-5.90); White Blood Count* 5.88 K/uL (4.50-11.00)
[2022-08-20 06:34] LABS: Slide Review Reflex No
[2022-08-20 06:46] LABS: Chloride* 112 mmol/L (96-114); Potassium* 3.7 mmol/L (3.6-5.1); Sodium* 137 mmol/L (135-149)
[2022-08-20 06:49] LABS: Creatinine* 0.8 mg/dL (0.5-1.5); Estimated Glomerular Filt Rate 90 ml/min
[2022-08-20 06:50] LABS: Blood Urea Nitrogen* 23 mg/dL (7-30); Calcium* 8.2 mg/dL (8.4-10.6); Carbon Dioxide* 26 mmol/L (20-32); Glucose* 52 mg/dL (60-115)
--- NOTE | 2022-08-21 13:54 | LTC.ADM ---
LTC Admission Note: o Admit from: Med surgical o Mode of transport: Wheel chair o Accompanied by: SENIOR NETWORK SECURITY ENGINEER o Transferred via: Wheel chair o Admitting dx:Uncontrol D/M with fracture right hip o Mentation: o Vital Signs: T 98.8,P69.O2 97 B/P 109/64 R 18 o Lung sounds: Clear o Overall condition: Fair o Pain: Denies any pain o Mood/Behavior: Cheerful o Wound care: o Assistance level with ADL?s: 1 assist o Mobility: Ambulate with assist o Eating: Fair
[2022-08-21 14:52] LABS: SARS PCR* Negative SARS-CoV-2 (Negative)
[2022-08-21 15:00] VITALS: TEMP 36.9; O2SAT 97
[2022-08-21] MEDS: MONTELUKAST 10 MG TABLET PO (20:10)
[2022-08-21] MEDS: PRAVASTATIN 80 MG TABLET 1 EACH PO (20:10)
[2022-08-21] MEDS: ACETAMINOPHEN 500 MG TABLET 1000 MG PO (20:25)
--- NOTE | 2022-08-21 21:56 | PC.NURSE ---
DNR/DNI: Resident went to the ER with a DNR/DNI status and came back with Full Code. He stated he wanted to remain DNR/DNI.
[2022-08-21 23:00] VITALS: TEMP 37.2; O2SAT 92
[2022-08-22 07:00] VITALS: TEMP 36.4; O2SAT 97
[2022-08-22] MEDS: guaiFENesin 600 MG TAB.ER.12H 1200 MG PO ×2 (07:50→15:32)
[2022-08-22] MEDS: FLUTICASONE PROPIONATE NASAL 1 SPRAY NOSTRIL-B ×2 (07:50→15:31)
[2022-08-22] MEDS: ASPIRIN 81 MG TABLET EC PO ×2 (07:50→15:31)
[2022-08-22] MEDS: ACETAMINOPHEN 500 MG TABLET 1000 MG PO ×3 (07:50→20:26)
[2022-08-22] MEDS: HYDROXYUREA 500 MG CAPSULE PO (07:51)
[2022-08-22] MEDS: lisinopriL 5 MG TABLET 2.5 MG PO (07:52)
[2022-08-22] MEDS: FLUTICASONE/SALMETEROL 500/50 INHALER 1 EACH INH ×2 (07:52→15:32)
[2022-08-22] MEDS: SENNOSIDES 1 TAB TABLET 2 TAB PO ×2 (07:53→15:32)
[2022-08-22] MEDS: CETIRIZINE HCL 10 MG TABLET PO (07:53)
[2022-08-22 10:00] VITALS: BP 100/64; PULSE 84; RESP 18; TEMP 36.4; O2SAT 97
--- NOTE | 2022-08-22 10:58 | PC.NURSE ---
Medicare note: Vital signs: B/P 100/64, P 84, R 18, T 97.6, O2 sat 97% on RA. Resident has been denying pain when asked this shift with rest encouraged, repositioning performed, ice provided after therapy and scheduled Tylenol administered. Resident requires extensive assist of 1 with bed mobility and transferring with staff lifting. He completed therapy session this morning before breakfast. Staff noted one intact blister located to R heel measuring approximately 4 cm x 5 cm in size. Skin prep applied and allowed to dry. Heel protectors provided to help promote healing of blister and maintain skin integrity. Surgical incision to R hip noted to be open to air and held in place by surgical glue with no warmth, edema, redness or drainage observed upon inspection.
--- NOTE | 2022-08-22 11:17 | PC.NURSE ---
MDS clarification: spoke to staff in regards to adl charting. Resident had gone to the hospital during [facility]XMI. Resident needed extensive assistance with dressing due to needing to have KILO stockings placed on by staff. Other ADLS noted to be limited assistance. Set up for meals needed than independent. Set up help for hygiene. Staff education given for future ADL charting.
--- NOTE | 2022-08-22 13:00 | PC.NURSE ---
CARE CONFERENCE: Nursing, SW, and therapy present. Resident present, sister and brother present. Nursing reviewed current care needs; resident continues to require 1 assist with most ADLs and ambulation. POL reviewed, no changes at this time. Is DNR/DNI. Discussed pain management--resident states he is having pain especially during therapy. Nursing suggests that resident utilize pain medication before his session--resident agrees and will try this. Discussed endocrine follow up--he has never seen endocrine before and states that he will go wherever is recommended. Will update nurse clinical quality manager to get this scheduled. Resident and sister concerned about continued sporadic blood sugars and would like to discuss appropriate snacks. Will update dietary who plans to see him tomorrow. Sister wonders if there has been any changes to his insulin because she got a letter in the mail, though she did not bring the letter, it seems from what she describes that it was a notice from insurance regarding switching to a generic drug from name brand. She will bring it in at a later time, this nurse discussed no changes to insulin at this time. Resident returned from hospital stay with blisters on the backs of his heels, appears to be from his shoes. Therapy recommends no shoes on unless ambulating as they are rubbing and causing further pain, resident is in agreement. Sister will get new shoes for him. Nursing has no further concerns. Therapy discussed that resident continues to make progress, was almost able to bathe independently this morning. Will likely continue therapy for 2 more weeks and will need home eval before he goes home. SW reviewed mood assessment, no concerns. Weight has been stable since admission and resident is eating well, no concerns. Uses no restraints. Sister and brother involved in decision making as needed. Is not able to self-administer meds, administered by nurse. No falls since admission. Resident is considered a vulnerable adult due to need for assistance with ADLs and med management. Plans to discharge home in the next couple of weeks.
--- NOTE | 2022-08-22 13:56 | PC.SOCIAL ---
Resident's initial care conference was held today. Resident and his brother and sister attended. Resident continues to make progress with therapies and his goal is to return to his apartment with [facility] in place for nursing and homemaking as resident has previously. Resident's sister is working on getting resident new shoes due to his shoes causing blisters on his heels. Resident's family is supportive and visits often. Resident's mood remains stable no s/s of depression noted.
--- NOTE | 2022-08-22 14:22 | PC.NURSE ---
Insulin Levemir: Davie Hilton consulted on appropriate time to administer BID, 08 & 20.
[2022-08-22 15:00] VITALS: TEMP 36.6; O2SAT 97
[2022-08-22] MEDS: PRAVASTATIN 80 MG TABLET 1 EACH PO (20:27)
[2022-08-22] MEDS: MONTELUKAST 10 MG TABLET PO (20:27)
[2022-08-22 23:25] VITALS: TEMP 36.8; O2SAT 96
--- NOTE | 2022-08-23 00:48 | PC.NURSE ---
Weekly Charting Week 1: Temporary care plan reviewed, no added, no changes made. Vitals within normal no concerns noted. ADLs: Res needed extensive assist 1 with dressing, bathing, Limited assist of grooming, Oral hygiene needs to Set up only. Res is on Diabetic regular Thin diet. No swallowing problem. Ate independently after set up. Pain: Res right hip surgical pain control with scheduled acetaminophen 1000 TID and Oxycodone 5mg Q4h PRN. Current pain regime seems to be effective.
--- NOTE | 2022-08-23 07:32 | PC.NURSE ---
Week #1-ADL's: Baseline and temporary care plan reviewed. No changes made and nothing added to temporary care plan. Resident needs one assist with dressing, grooming and bathing. Is able to dress upper half after set up. Shower only at this time d/t (R) hip incision. Does oral cares after set up. Does not have upper teeth/denture, few teeth lower. Feed self after set up. Is on diabetic diet, HS protein supplement. No problems with chewing/swallowing reported. Continue daily VS x 2 weeks per MD. BP varies. Pain: (R) hip surgery managed with Tylenol 1000mg TID, Oxycodone 5mg Q4H PRN. Nurse to medicate prior to therapy.
--- NOTE | 2022-08-23 08:03 | PC.NURSE ---
Admit Covid day 3 swab done and sent to lab.
[2022-08-23] MEDS: ALBUTEROL INHALER 2 PUFF IH (08:05)
[2022-08-23] MEDS: ASPIRIN 81 MG TABLET EC PO ×2 (08:06→15:32)
[2022-08-23] MEDS: ACETAMINOPHEN 500 MG TABLET 1000 MG PO ×3 (08:06→19:13)
[2022-08-23] MEDS: HYDROXYUREA 500 MG CAPSULE PO (08:07)
[2022-08-23] MEDS: FLUTICASONE PROPIONATE NASAL 1 SPRAY NOSTRIL-B ×2 (08:07→15:32)
[2022-08-23] MEDS: guaiFENesin 600 MG TAB.ER.12H 1200 MG PO ×2 (08:07→15:32)
[2022-08-23] MEDS: lisinopriL 5 MG TABLET 2.5 MG PO (08:08)
[2022-08-23] MEDS: SENNOSIDES 1 TAB TABLET 2 TAB PO ×2 (08:10→15:32)
[2022-08-23] MEDS: CETIRIZINE HCL 10 MG TABLET PO (08:10)
[2022-08-23] MEDS: FLUTICASONE/SALMETEROL 500/50 INHALER 1 EACH INH ×2 (08:10→15:32)
[2022-08-23 08:52] LABS: SARS PCR* Negative SARS-CoV-2 (Negative)
--- NOTE | 2022-08-23 10:02 | PC.SPIRITC ---
Rossy talked about events leading to [facility] along with feeling like, 'everything always happens to me.' He talked about past medical events and his hope to get better enough to go home soon. Rossy is Gnosticism but not practicing. Per resident, his main support system is his family who are active and involved in his life. He enjoys their daily visits. I provided visit for support and connection.
[2022-08-23 10:27] VITALS: TEMP 36.4; O2SAT 94
[2022-08-23 10:30] VITALS: BP 118/67; PULSE 78; RESP 18; TEMP 36.4; O2SAT 94
--- NOTE | 2022-08-23 10:46 | PC.NURSE ---
Medicare: OT/PT as ordered, no verbal or nonverbal s/s of pain, B/P: 118/67, R18, P78, T97.6, O2 94%
--- NOTE | 2022-08-23 11:01 | NUTR.NU ---
RDN informed of resident asking about diabetic friendly snacks before bedtime since that is when he takes his long-acting insulin. RDN visited with resident and provided list of Diabetic-friendly snacks that is available in LT. List of snacks include: -Fresh Fruit or applesauce + string cheese -Crackers with cheese or peanut butter -1/2 Peanut Butter or meat sandwich -Cheerios (low sugar) with milk -Fig Newtons -Yogurt with fruit Resident reported he liked peanut butter sandwiches/with crackers, string cheese, cheerios, fig newtons, and yogurt. He would like to be offered a snack around 8-10 pm at night. Snack once daily provides an additional ~100-200 kcals and ~5-10 grams protein. RDN also provided a copy of snack list to Nurses for staff to reference. RDN will put in snack intervention. Resident had no questions or concerns at this time. RDN will follow-up with nutrition assessment at later date.
[2022-08-23 16:03] VITALS: TEMP 37.1; O2SAT 95
[2022-08-23] MEDS: MONTELUKAST 10 MG TABLET PO (19:13)
[2022-08-23] MEDS: PRAVASTATIN 80 MG TABLET 1 EACH PO (19:13)
[2022-08-24] MEDS: ACETAMINOPHEN 500 MG TABLET 1000 MG PO ×3 (08:50→20:00)
[2022-08-24] MEDS: ASPIRIN 81 MG TABLET EC PO ×2 (08:50→15:40)
[2022-08-24] MEDS: CETIRIZINE HCL 10 MG TABLET PO (08:51)
[2022-08-24] MEDS: FLUTICASONE PROPIONATE NASAL 1 SPRAY NOSTRIL-B ×2 (08:51→15:40)
[2022-08-24] MEDS: lisinopriL 5 MG TABLET 2.5 MG PO (08:51)
[2022-08-24] MEDS: HYDROXYUREA 500 MG CAPSULE PO (08:51)
[2022-08-24] MEDS: SENNOSIDES 1 TAB TABLET 2 TAB PO ×2 (08:51→15:41)
[2022-08-24] MEDS: guaiFENesin 600 MG TAB.ER.12H 1200 MG PO ×2 (08:51→15:40)
[2022-08-24] MEDS: FLUTICASONE/SALMETEROL 500/50 INHALER 1 EACH INH ×2 (08:52→15:41)
[2022-08-24 10:00] VITALS: BP 95/57; PULSE 68; RESP 16; TEMP 37.1; O2SAT 97
--- NOTE | 2022-08-24 11:01 | PC.NURSE ---
Medicare note: Resident has had no verbal or nonverbal reports of pain noted so far this shift with rest encouraged, repositioning performed and scheduled Tylenol administered. Resident refused ice when offered. KILO stocks worn with CWMS intact. Surgical incision to R hip remains open to air and is sealed with surgical glue with no warmth, edema, redness or drainage observed upon inspection. VS: B/P 95/57, P 68, R 16, T 98.7, O2 sat 97% on RA with fluids encouraged. Blood sugar of 306 before breakfast. Resident completed therapy session after breakfast today and has visitors at this time. Blister located to R heel remains intact with heel protectors worn. No complaints of chest pain or pressure.
[2022-08-24 15:00] VITALS: TEMP 37.1; O2SAT 97
[2022-08-24] MEDS: MONTELUKAST 10 MG TABLET PO (20:00)
[2022-08-24] MEDS: PRAVASTATIN 80 MG TABLET 1 EACH PO (20:01)
[2022-08-25] MEDS: guaiFENesin 600 MG TAB.ER.12H 1200 MG PO ×2 (08:05→16:07)
[2022-08-25] MEDS: HYDROXYUREA 500 MG CAPSULE PO (08:05)
[2022-08-25] MEDS: CETIRIZINE HCL 10 MG TABLET PO (08:05)
[2022-08-25] MEDS: FLUTICASONE/SALMETEROL 500/50 INHALER 1 EACH INH ×2 (08:05→16:07)
[2022-08-25] MEDS: SENNOSIDES 1 TAB TABLET 2 TAB PO ×2 (08:05→16:08)
[2022-08-25] MEDS: ACETAMINOPHEN 500 MG TABLET 1000 MG PO ×3 (08:10→19:35)
[2022-08-25] MEDS: FLUTICASONE PROPIONATE NASAL 1 SPRAY NOSTRIL-B ×2 (08:10→16:07)
[2022-08-25] MEDS: lisinopriL 5 MG TABLET 2.5 MG PO (08:30)
[2022-08-25] MEDS: ASPIRIN 81 MG TABLET EC PO ×2 (08:40→16:07)
[2022-08-25 10:00] VITALS: BP 106/66; PULSE 71; RESP 18; TEMP 37.1; O2SAT 98
--- NOTE | 2022-08-25 10:01 | PC.NURSE ---
Admit Covid day 5 swab test done and sent to lab.
[2022-08-25 10:38] LABS: SARS PCR* Negative SARS-CoV-2 (Negative)
--- NOTE | 2022-08-25 13:15 | PC.NURSE ---
Medicare note: Resident had no complains of pain, no nonverbal indication of pain/discomfort noted or reports this shift with rest encouraged, repositioning? performed and scheduled Tylenol administered. Resident refused ice when offered. Sreekanth's on bilateral extremities with CWMS intact. No sx/sx of infection noted to Surgical incision to R hip . VS: B/P 106/66, P 71, R 18, T 98.8, O2 sat 98% on RA. Blood sugar of 455 before breakfast and before lunch 466. No complaints of chest pain or pressure.
[2022-08-25 15:00] VITALS: TEMP 36.9; O2SAT 99
--- NOTE | 2022-08-25 17:31 | PC.NURSE ---
Blood glucose Status: At 1600, blood glucose was? HI. Based on sliding scale guidance, 5 units of NovoLog was given in addition to offering and encouraging water consumption. Vitals obtained are WNL. No signs and symptoms of hyperglycemia noted at this time, and resident denies feeling ill or sick. Second AccuCheck was done before dinner:507 mg/dL. Scheduled NovoLog 5 units given with dinner meal.? REGISTRATION SCHEDULING SPECIALIST notified and updated on this matter. Will continue to monitor.
--- NOTE | 2022-08-25 18:27 | PC.NURSE ---
Blood glucose Status: At 1600, blood glucose was HI. Based on sliding scale guidance, 5 units of NovoLog was given in addition to offering and encouraging water consumption. Second AccuCheck was done before dinner:507 mg/dL. Scheduled NovoLog 5 units given with dinner meal. MANAGER FRAUD notified and updated on this matter. Will continue to monitor.
[2022-08-25] MEDS: MONTELUKAST 10 MG TABLET PO (19:51)
[2022-08-25] MEDS: PRAVASTATIN 80 MG TABLET 1 EACH PO (19:51)
--- NOTE | 2022-08-25 21:32 | PC.NURSE ---
New Med Order: Received the following RBVO from Amelia MILLS: - Increase NovoLog to 8 units TID with meals due to blood glucose elevation. - Increase Levemir to 20 units, ONLY, at HS due to blood glucose elevation. AM dose of 12 units remains unchanged. - Temporally DC HS sliding scale. - Sliding scale TID WM, currently.
--- NOTE | 2022-08-25 22:05 | PC.NURSE ---
Blood sugar Status: Blood glucose re-checked at 1930, before Levemir administration, was 335 mg/dL.
[2022-08-26] MEDS: ASPIRIN 81 MG TABLET EC PO ×2 (08:00→16:03)
[2022-08-26] MEDS: ACETAMINOPHEN 500 MG TABLET 1000 MG PO ×3 (08:00→20:03)
[2022-08-26] MEDS: FLUTICASONE PROPIONATE NASAL 1 SPRAY NOSTRIL-B ×2 (08:01→16:03)
[2022-08-26] MEDS: guaiFENesin 600 MG TAB.ER.12H 1200 MG PO ×2 (08:01→16:03)
[2022-08-26] MEDS: HYDROXYUREA 500 MG CAPSULE PO (08:01)
[2022-08-26] MEDS: FLUTICASONE/SALMETEROL 500/50 INHALER 1 EACH INH ×2 (08:02→16:03)
[2022-08-26] MEDS: lisinopriL 5 MG TABLET 2.5 MG PO (08:02)
[2022-08-26] MEDS: CETIRIZINE HCL 10 MG TABLET PO (08:03)
[2022-08-26] MEDS: SENNOSIDES 1 TAB TABLET 2 TAB PO ×2 (08:03→16:03)
[2022-08-26 10:53] VITALS: BMI 21.4
[2022-08-26 13:00] VITALS: BP 96/55; PULSE 67; RESP 18; TEMP 36.4; O2SAT 97
--- NOTE | 2022-08-26 13:04 | PC.NURSE ---
Medicare chart: Resident has no c/o pain during this shift, refused ice treatment offered and informed that he is not having any pain or discomfort. Sat on the recliner most of the morning enjoying morning sun and reading room. Informed junior technical writer that his family wont be coming to visit today and they are unable to bring his comfortable shoes. VS as follows: T 97.5,P 67, R 18, B/P 96/55 and O2 97 % on RA. B/P noted low and encourage resident drink more fluids. Blood glucose pre breakfast and lunch was 212 and 245 and insulin was administered. Resident surgical wound intact, open to air and no sign of infection. Blister located to Rt and Lt heel remains intact with heel protectors worn.
[2022-08-26 15:00] VITALS: TEMP 37.1; O2SAT 98
[2022-08-26] MEDS: MONTELUKAST 10 MG TABLET PO (20:03)
[2022-08-26] MEDS: PRAVASTATIN 80 MG TABLET 1 EACH PO (20:03)
[2022-08-27] MEDS: ACETAMINOPHEN 500 MG TABLET 1000 MG PO ×3 (08:52→19:20)
[2022-08-27] MEDS: ASPIRIN 81 MG TABLET EC PO ×2 (08:52→15:42)
[2022-08-27] MEDS: FLUTICASONE PROPIONATE NASAL 1 SPRAY NOSTRIL-B ×2 (08:52→15:42)
[2022-08-27] MEDS: lisinopriL 5 MG TABLET 2.5 MG PO (08:53)
[2022-08-27] MEDS: HYDROXYUREA 500 MG CAPSULE PO (08:53)
[2022-08-27] MEDS: SENNOSIDES 1 TAB TABLET 2 TAB PO ×2 (08:53→15:42)
[2022-08-27] MEDS: FLUTICASONE/SALMETEROL 500/50 INHALER 1 EACH INH ×2 (08:53→15:42)
[2022-08-27] MEDS: guaiFENesin 600 MG TAB.ER.12H 1200 MG PO ×2 (08:53→15:42)
[2022-08-27] MEDS: CETIRIZINE HCL 10 MG TABLET PO (08:53)
[2022-08-27 10:00] VITALS: BP 107/67; PULSE 66; RESP 16; TEMP 37.1; O2SAT 98
--- NOTE | 2022-08-27 13:43 | PC.NURSE ---
Medicare note: Resident has had no verbal or nonverbal complaints of pain noted throughout the shift today with rest encouraged, repositioning performed, ice provided and scheduled Tylenol administered. VS: B/P 107/67, P 66, R 16, T 98.7, O2 sat 98% on RA. Surgical incision to L hip remains open to air with no warmth, edema, redness or drainage observed. Incision remains held in place with surgical glue. Resident remains on PT and OT services. Blister located to R heel remains intact. Skin prep applied along with protective heel protector.
--- NOTE | 2022-08-27 13:46 | PC.NURSE ---
CWMS to surgical R leg remains intact.
[2022-08-27 13:56] VITALS: BMI 21.4
[2022-08-27 15:00] VITALS: TEMP 36.6; O2SAT 96
[2022-08-27] MEDS: PRAVASTATIN 80 MG TABLET 1 EACH PO (19:28)
[2022-08-27] MEDS: MONTELUKAST 10 MG TABLET PO (19:28)
[2022-08-28] MEDS: ACETAMINOPHEN 500 MG TABLET 1000 MG PO ×3 (07:31→19:42)
[2022-08-28] MEDS: lisinopriL 5 MG TABLET 2.5 MG PO (07:32)
[2022-08-28] MEDS: ASPIRIN 81 MG TABLET EC PO ×2 (07:32→16:06)
[2022-08-28] MEDS: HYDROXYUREA 500 MG CAPSULE PO (07:32)
[2022-08-28] MEDS: guaiFENesin 600 MG TAB.ER.12H 1200 MG PO ×2 (07:32→16:06)
[2022-08-28] MEDS: FLUTICASONE PROPIONATE NASAL 1 SPRAY NOSTRIL-B ×2 (07:32→16:06)
[2022-08-28] MEDS: FLUTICASONE/SALMETEROL 500/50 INHALER 1 EACH INH ×2 (07:36→16:07)
[2022-08-28] MEDS: CETIRIZINE HCL 10 MG TABLET PO (07:37)
[2022-08-28] MEDS: SENNOSIDES 1 TAB TABLET 2 TAB PO ×2 (07:37→16:07)
--- NOTE | 2022-08-28 10:11 | PC.NURSE ---
Covid swab test done and sent to lab. Resident has a high risk exposure to staff who had Covid positive. Test today, again in 48 hours and again in 48 hours.
[2022-08-28 10:24] LABS: SARS PCR* Negative SARS-CoV-2 (Negative)
--- NOTE | 2022-08-28 11:12 | PC.NURSE ---
Bilateral heels observed: treatment of skin prep, heel boots and gripper socks applied. See wound care charting for more details.
[2022-08-28 13:10] VITALS: BP 128/63; PULSE 80; RESP 18; TEMP 37.1; O2SAT 94
--- NOTE | 2022-08-28 13:14 | PC.NURSE ---
Blisters to bilateral heels. Left heel: A blister opened at the base of the heal. No skin noted. 100% granulation. 3.1 x 1.8 cm. Right heel: Full filled blister at the lateral upper heel, near ankle. 4.4 x 2.5 cm. Applied skin prep to both area and applied heel boots. No s/s infection. Warm/pink skin around wounds. No pain noted. Staff and wound assessment updated.
--- NOTE | 2022-08-28 13:40 | PC.NURSE ---
Medicare chart: Resident has no c/o pain during this shift, continue with schedule Tylenol. Sat on the recliner most of the morning enjoying morning sun and reading room. PT/OT done as schedule.VS as follows:? T 98.8, P 80, R 18, B/P 128/63 and O2 94 % on RA. Blood glucose pre breakfast and lunch was 303 and 529 and insulin was administered. Resident surgical wound intact, open to air and no sign of infection. Blister located to Rt and Lt heel remains intact,skin prep applied and continues heel protectors when in chair /bed.
--- NOTE | 2022-08-28 14:45 | PC.NURSE ---
ADL CORRECTION: incorrect charting during lookback WALK IN ROOM: Staff interviewed, staff provided guided maneuvering of legs and walker, but not weight bearing support. Coded limited assist. DRESSING: Staff interviewed; staff did provide weight bearing support when putting on KILO hose. Coded extensive assist. EATING: Staff interviewed, resident was independent at all meals with set up assistance. Coded as such. TOILETING: Staff interviewed, resident was able to help with pericares after toileting, guided maneuvering with briefs, and transfers with limited assist of 1 at all times. Coded as such. PERSONAL HYGIENE: Staff interviewed, resident is independent with hygiene with set up assistance. Coded as such.
[2022-08-28 15:05] VITALS: TEMP 36.6; O2SAT 95
--- NOTE | 2022-08-28 18:55 | PC.NURSE ---
Blood glucose Status: At 1700 blood glucose result was HI and based on sliding scale additional 5 unit was given with the schedule unit of 8 unit. Testing after dinner also shows HI. Resident later was tested at 1830 and result came down to 591. Vital were WNL and resident did not have any symptoms of Hyperglycemia.Resident was encourage more fluids. Staff will continue to monitor.
[2022-08-28] MEDS: PRAVASTATIN 80 MG TABLET 1 EACH PO (19:42)
[2022-08-28] MEDS: MONTELUKAST 10 MG TABLET PO (19:42)
--- NOTE | 2022-08-28 19:46 | PC.NURSE ---
Blood sugar status at 1930: Results was 509 and schedule dose of Insulin Levemir 20unit was given.Plan to repeat B/S at 2200 hours.
[2022-08-29] MEDS: ACETAMINOPHEN 500 MG TABLET 1000 MG PO ×3 (08:40→19:57)
[2022-08-29] MEDS: ASPIRIN 81 MG TABLET EC PO ×2 (08:40→15:28)
[2022-08-29] MEDS: HYDROXYUREA 500 MG CAPSULE PO (08:40)
[2022-08-29] MEDS: guaiFENesin 600 MG TAB.ER.12H 1200 MG PO ×2 (08:40→15:28)
[2022-08-29] MEDS: FLUTICASONE PROPIONATE NASAL 1 SPRAY NOSTRIL-B ×2 (08:40→15:28)
[2022-08-29] MEDS: lisinopriL 5 MG TABLET 2.5 MG PO (08:41)
[2022-08-29] MEDS: FLUTICASONE/SALMETEROL 500/50 INHALER 1 EACH INH ×2 (08:41→15:28)
[2022-08-29] MEDS: CETIRIZINE HCL 10 MG TABLET PO (08:42)
[2022-08-29] MEDS: SENNOSIDES 1 TAB TABLET 2 TAB PO ×2 (08:42→15:28)
[2022-08-29 09:42] VITALS: BP 100/61; PULSE 79; RESP 18; TEMP 36.8; O2SAT 99
--- NOTE | 2022-08-29 13:45 | PC.NURSE ---
Medicare: Resident has OT/PT 5x/week. Tolerating well. No complain of pain, continue on schedule Tylenol. Needs one assist, gait belt, walker with transfers/ambulation. (R) hip incision open to air, no s/s f infection, healing. VS stable.T-98.3 BP-100/61 P-79 RR-18 sat-99% room air.
[2022-08-29 15:00] VITALS: TEMP 36.4; O2SAT 95
[2022-08-29] MEDS: MONTELUKAST 10 MG TABLET PO (19:57)
[2022-08-29] MEDS: PRAVASTATIN 80 MG TABLET 1 EACH PO (19:57)
--- NOTE | 2022-08-30 00:32 | PC.NURSE ---
WEEKLY CHARTING - WEEK 2: Vital signs reviewed - Low diastolic BP values noted. Temporary and admission care plan reviewed - no change. Assist of 1 with gait belt and walker for transfers and ambulation. Assist of 1 for bed mobility. Uses bilateral 1/4 side rails for independent positioning. Bilateral heels floated at all times when in bed. Staff assist for w/c mobility. Per fall risk assessment, is at low risk for falls. Fall interventions: call light in reach, w/c at bedside, bed in low position with brakes locked.
[2022-08-30] MEDS: FLUTICASONE PROPIONATE NASAL 1 SPRAY NOSTRIL-B ×2 (07:35→16:21)
[2022-08-30] MEDS: ASPIRIN 81 MG TABLET EC PO ×2 (07:35→16:21)
[2022-08-30] MEDS: ACETAMINOPHEN 500 MG TABLET 1000 MG PO ×3 (07:35→20:06)
[2022-08-30] MEDS: guaiFENesin 600 MG TAB.ER.12H 1200 MG PO ×2 (07:36→16:21)
[2022-08-30] MEDS: HYDROXYUREA 500 MG CAPSULE PO (07:36)
[2022-08-30] MEDS: lisinopriL 5 MG TABLET 2.5 MG PO (07:36)
[2022-08-30] MEDS: FLUTICASONE/SALMETEROL 500/50 INHALER 1 EACH INH ×2 (07:37→16:21)
[2022-08-30] MEDS: SENNOSIDES 1 TAB TABLET 2 TAB PO ×2 (07:37→16:21)
[2022-08-30] MEDS: CETIRIZINE HCL 10 MG TABLET PO (07:37)
--- NOTE | 2022-08-30 07:43 | PC.NURSE ---
Week #2 - Mobility: Baseline and temporary care plan reviewed. No changes made, nothing added to temporary care plan. Resident needs one assist, gait belt, walker with transfers/ambulation. Needs assist with bed/chair positioning. Staff wheels to destinations. No alarms. Bilateral 1/4 side rails up at all times to promote independence/positioning. Vital signs reviewed, with some low BP's. Continue weekly monitoring and refer to provider as needed. Fall: No falls since admission. Is a low fall risk according to assessment done on 08/29/22. Fall interventions: call light within reach, bed in low position with brakes locked.
[2022-08-30 08:12] LABS: SARS PCR* Negative SARS-CoV-2 (Negative)
[2022-08-30 10:00] VITALS: BP 134/88; PULSE 77; RESP 18; TEMP 36.4; O2SAT 96
--- NOTE | 2022-08-30 10:49 | PC.NURSE ---
Resident remains on PT and OT services 5x/week. Pain is controlled with scheduled Tylenol, rest and repositioning. Resident performs bed mobility, transferring and ambulation with assist of 1. Surgical incision located to R hip closed with surgical glue and remains open to air with no warmth, edema, redness or drainage observed upon inspection. VS: B/P 134/88, P 77, R 18, T 97.6, O2 sat 96% on RA. Blood sugar of 249 before breakfast today. Skin to bilateral heels remains intact with skin prep applied and heel protectors worn. TEDs also worn bilaterally. Goal remains for resident to return to independent living.
--- NOTE | 2022-08-30 11:13 | PC.NURSE ---
Covid Test : Admit day 3 Covid test was done and result came back negative.
--- NOTE | 2022-08-30 11:14 | PC.NURSE ---
Right hip incision observed with TRAINING PROGRAM ASSISTANT and no s/s infection. No dressing needed. Area is healed.
--- NOTE | 2022-08-30 14:57 | PC.NURSE ---
Oder changes: Written order from Carol MILLS as follows: 1) Increase Levemir from 12 units to 16 units for AM 2) Increase Levemir from 20 units to 24 units for PM * See sliding scale for new changes * 3) DC Oxycodone
[2022-08-30 15:00] VITALS: TEMP 37; O2SAT 100
--- NOTE | 2022-08-30 15:33 | PC.NURSE ---
Side rail Assessment/Providers Orders/Informed Consent: Completed side rail utilization assessment, RBVO both bed rails up to always promote independence/positioning. Requested by resident. DX: Right Femur Fx per Jennifer Delgado NP. Bed rail informed consent form signed and filed. FDA side rail pamphlet given to POA. Intervention in place/Care Plan and Care Sheets updated.
[2022-08-30] MEDS: PRAVASTATIN 80 MG TABLET 1 EACH PO (20:07)
[2022-08-30] MEDS: MONTELUKAST 10 MG TABLET PO (20:07)
--- NOTE | 2022-08-30 22:46 | PC.NURSE ---
Skin Concern: Blister to left heel opened, but skin flap is intact. Skin-prep applied, and heel wrapped with Kerlix. Will continue to monitor.
[2022-08-30 23:51] VITALS: TEMP 36.7; O2SAT 92
--- NOTE | 2022-08-31 07:55 | PC.NURSE ---
Skin: Blister on bilateral heels seen by FLAT FOLDING MACHINE OPERATOR. Continue current treatment- skin prep, heel protectors when in bed and chair.
[2022-08-31] MEDS: guaiFENesin 600 MG TAB.ER.12H 1200 MG PO ×2 (08:06→15:47)
[2022-08-31] MEDS: ASPIRIN 81 MG TABLET EC PO ×2 (08:06→15:47)
[2022-08-31] MEDS: ACETAMINOPHEN 500 MG TABLET 1000 MG PO ×3 (08:06→20:13)
[2022-08-31] MEDS: FLUTICASONE PROPIONATE NASAL 1 SPRAY NOSTRIL-B ×2 (08:06→15:47)
[2022-08-31] MEDS: HYDROXYUREA 500 MG CAPSULE PO (08:06)
[2022-08-31] MEDS: lisinopriL 5 MG TABLET 2.5 MG PO (08:07)
[2022-08-31] MEDS: FLUTICASONE/SALMETEROL 500/50 INHALER 1 EACH INH ×2 (08:08→15:47)
[2022-08-31] MEDS: SENNOSIDES 1 TAB TABLET 2 TAB PO ×2 (08:13→15:47)
[2022-08-31] MEDS: CETIRIZINE HCL 10 MG TABLET PO (08:13)
--- NOTE | 2022-08-31 10:32 | PC.SOCIAL ---
Met with resident and resident's brother and sister in resident's room. Resident's sister is concerned because resident's therapy will be ending soon and resident's sister does not believe resident will be successful at home with his blood sugars out of control. Resident's sister stated resident does not have the funds to private pay for his stay at [facility]. Resident's sister asked if she should reach out to resident's elderly waiver worker at [facility]. This worker informed that would be ok. This worker informed that LEATHA Chowdary would be back on Saturday and is not in office today. Resident's sister informed that she can discuss more in resident's scheduled care conference next Saturday. Resident's sister will reach out to resident's elderly waiver worker from [facility] today. Social work will follow up as necessary.
[2022-08-31 10:40] VITALS: PULSE 72; RESP 18; TEMP 36.3; O2SAT 97
--- NOTE | 2022-08-31 10:42 | PC.NURSE ---
Medicare: Continues with OT/PT as ordered, no verbal or nonverbal s/s of pain this shift, vitals done and charted
--- NOTE | 2022-08-31 10:59 | PC.NURSE ---
Discussion was held with resident and family about POLST. Resident stated I want to live as long as possible and have everything done so that this happens. Family then stated that means you will have tubes: and he stated Yep, the decision will be up to you. Sister and brother agreed with resident. Discussion done with Dr. Ruelas. YUNIER now reads FULL CODE. Order placed.
--- NOTE | 2022-08-31 14:36 | PC.SOCIAL ---
Received a voicemail from Melissa at [facility] ([phone]). Melissa was requesting a phone call back to discuss resident's discharge plans. This worker made a phone call to Melissa at [facility]. Left a voicemail providing information on discharge plans. Requested a phone call back to discuss further. Social work will follow up as necessary.
[2022-08-31 15:00] VITALS: TEMP 36.5; O2SAT 98
[2022-08-31] MEDS: MONTELUKAST 10 MG TABLET PO (20:13)
[2022-08-31] MEDS: PRAVASTATIN 80 MG TABLET 1 EACH PO (20:13)
[2022-09-01 00:28] VITALS: TEMP 36.9; O2SAT 95
[2022-09-01] MEDS: ACETAMINOPHEN 500 MG TABLET 1000 MG PO ×3 (08:01→19:55)
[2022-09-01] MEDS: FLUTICASONE PROPIONATE NASAL 1 SPRAY NOSTRIL-B ×2 (08:02→15:22)
[2022-09-01] MEDS: guaiFENesin 600 MG TAB.ER.12H 1200 MG PO ×2 (08:02→15:22)
[2022-09-01] MEDS: HYDROXYUREA 500 MG CAPSULE PO (08:02)
[2022-09-01] MEDS: ASPIRIN 81 MG TABLET EC PO ×2 (08:02→15:22)
[2022-09-01] MEDS: FLUTICASONE/SALMETEROL 500/50 INHALER 1 EACH INH ×2 (08:03→15:22)
[2022-09-01] MEDS: lisinopriL 5 MG TABLET 2.5 MG PO (08:03)
[2022-09-01] MEDS: SENNOSIDES 1 TAB TABLET 2 TAB PO ×2 (08:04→15:22)
[2022-09-01] MEDS: CETIRIZINE HCL 10 MG TABLET PO (08:04)
[2022-09-01 10:47] VITALS: TEMP 36.8; O2SAT 93
--- NOTE | 2022-09-01 10:52 | PC.NURSE ---
Medicare: OT/PT as ordered, no verbal or nonverbal s/s of pain. Resident is assist of 1 with transfers and ambulation
[2022-09-01 15:00] VITALS: TEMP 36.8; O2SAT 96
[2022-09-01] MEDS: MONTELUKAST 10 MG TABLET PO (19:55)
[2022-09-01] MEDS: PRAVASTATIN 80 MG TABLET 1 EACH PO (19:55)
[2022-09-02 00:12] VITALS: TEMP 36.8; O2SAT 96
--- NOTE | 2022-09-02 08:00 | PC.NURSE ---
Status: While resident was in tub for a bath, resident had a large, brown emesis.
--- NOTE | 2022-09-02 08:10 | PC.NURSE ---
Addendum entered by Rhona Smith LPN 09/02/22 09:41: Order from Elin Delgado. Also to push water. Vitals: B/P 135/74, O2 on RA 97%, R18, T98.2, P111 Original Note: Status: While in the tub for a bath, resident had a large, brown emesis. Blood sugar was checked at that time and read high. Call placed to [facility] with the following orders: Give 16 units novolog and 16 units of levemir now, recheck blood sugar in 30 minutes and call back if over 500.
--- NOTE | 2022-09-02 08:10 | PC.NURSE ---
Status: While resident was in the tub for a bath,
--- NOTE | 2022-09-02 08:45 | PC.NURSE ---
Status: Residents blood sugar was noted to be high when rechecked. Call place to [facility] with the following order from Elin Delgado: Give 10 units of Novolog now, recheck blood sugar in 30 minutes with different machine and sent to ED if above 500.
--- NOTE | 2022-09-02 09:20 | PC.NURSE ---
Status: Resident's blood sugar with different machine was noted to be 592. Resident again had ex-lg brown emesis 5 minutes before checking blood sugar, resident had drank about 400cc of h2o. wind projects supervisor was updated that resident was being sent to ED for evaluation along with residents sister. GSM updated per their request. Transfer packet completed and resident sent to ED via warehouse logistics coordinator and wheelchair.
[2022-09-02 10:54] VITALS: BP 135/74; PULSE 111; RESP 18; TEMP 36.8; O2SAT 97; BMI 21.2
--- NOTE | 2022-09-02 13:02 | PC.NURSE ---
Addendum entered by Rhona Smith LPN 09/02/22 13:07: Order to continue current insulin dosing and sliding scale Original Note: Status: Resident returned to unit at this time. Report from ER stated that resident received Novolog IV a total of 25 units and blood sugar is down to 240
[2022-09-02 15:00] VITALS: TEMP 37.3; O2SAT 98
[2022-09-02] MEDS: ASPIRIN 81 MG TABLET EC PO (15:42)
[2022-09-02] MEDS: FLUTICASONE PROPIONATE NASAL 1 SPRAY NOSTRIL-B (15:42)
[2022-09-02] MEDS: guaiFENesin 600 MG TAB.ER.12H 1200 MG PO (15:42)
[2022-09-02] MEDS: SENNOSIDES 1 TAB TABLET 2 TAB PO (15:42)
[2022-09-02] MEDS: FLUTICASONE/SALMETEROL 500/50 INHALER 1 EACH INH (15:42)
[2022-09-02] MEDS: PRAVASTATIN 80 MG TABLET 1 EACH PO (20:16)
[2022-09-02] MEDS: ACETAMINOPHEN 500 MG TABLET 1000 MG PO (20:16)
[2022-09-02] MEDS: MONTELUKAST 10 MG TABLET PO (20:16)
--- NOTE | 2022-09-02 22:28 | PC.NURSE ---
Status: Resident was given mug of water to drink. Blood sugar at 1700 was 147. Blood sugar check at 1999 was 286. Scheduled insulin was given per orders. No further emesis this shift. In bed resting at this time.
[2022-09-02 23:55] VITALS: TEMP 36.8; O2SAT 94
[2022-09-03] MEDS: HYDROXYUREA 500 MG CAPSULE PO (07:27)
[2022-09-03] MEDS: ASPIRIN 81 MG TABLET EC PO ×2 (07:27→15:55)
[2022-09-03] MEDS: ACETAMINOPHEN 500 MG TABLET 1000 MG PO ×3 (07:27→20:13)
[2022-09-03] MEDS: FLUTICASONE PROPIONATE NASAL 1 SPRAY NOSTRIL-B ×2 (07:27→15:55)
[2022-09-03] MEDS: guaiFENesin 600 MG TAB.ER.12H 1200 MG PO ×2 (07:27→15:56)
[2022-09-03] MEDS: FLUTICASONE/SALMETEROL 500/50 INHALER 1 EACH INH ×2 (07:28→15:56)
[2022-09-03] MEDS: lisinopriL 5 MG TABLET 2.5 MG PO (07:28)
[2022-09-03] MEDS: SENNOSIDES 1 TAB TABLET 2 TAB PO ×2 (07:29→15:56)
[2022-09-03] MEDS: CETIRIZINE HCL 10 MG TABLET PO (07:29)
--- NOTE | 2022-09-03 10:00 | PC.NURSE ---
COVID OUTBREAK TESTING Resident gave verbal consent for outbreak COVID testing. Resident is currently asymptomatic.? Resident/family will be notified only if resident is positive.
[2022-09-03 10:32] VITALS: TEMP 36.9; O2SAT 98
--- NOTE | 2022-09-03 10:33 | PC.NURSE ---
Medicare: No verbal or nonverbal s/s of pain this shift, B/P 120/73, O2 93% on room air, P80, R18. T98.3. Continues with OT/PT
[2022-09-03 12:31] LABS: SARS PCR* Negative SARS-CoV-2 (Negative)
[2022-09-03 16:42] VITALS: TEMP 37.1; O2SAT 98
[2022-09-03] MEDS: PRAVASTATIN 80 MG TABLET 1 EACH PO (20:14)
[2022-09-03] MEDS: MONTELUKAST 10 MG TABLET PO (20:14)
[2022-09-04 00:03] VITALS: TEMP 36.7; O2SAT 97
[2022-09-04] MEDS: ACETAMINOPHEN 500 MG TABLET 1000 MG PO ×3 (08:30→20:02)
[2022-09-04] MEDS: HYDROXYUREA 500 MG CAPSULE PO (08:30)
[2022-09-04] MEDS: FLUTICASONE PROPIONATE NASAL 1 SPRAY NOSTRIL-B ×2 (08:30→16:32)
[2022-09-04] MEDS: ASPIRIN 81 MG TABLET EC PO ×2 (08:30→16:32)
[2022-09-04] MEDS: guaiFENesin 600 MG TAB.ER.12H 1200 MG PO ×2 (08:30→16:33)
[2022-09-04] MEDS: lisinopriL 5 MG TABLET 2.5 MG PO (08:31)
[2022-09-04] MEDS: FLUTICASONE/SALMETEROL 500/50 INHALER 1 EACH INH ×2 (08:31→16:33)
[2022-09-04] MEDS: CETIRIZINE HCL 10 MG TABLET PO (08:32)
[2022-09-04] MEDS: SENNOSIDES 1 TAB TABLET 2 TAB PO ×2 (08:32→16:33)
[2022-09-04 10:13] VITALS: TEMP 36.3; O2SAT 99
--- NOTE | 2022-09-04 11:33 | PC.NURSE ---
Status/Order: Sandy MILLS here. Accu checks reviewed. Increase Insulin Novolog 8 units TID to 12 units.
--- NOTE | 2022-09-04 12:54 | PC.NURSE ---
Medicare: Resident has OT/PT today. He shows improvement with PT/OT which is schedule 5X a week. No c/o pain and continue schedule dose of Tylenol. Blood sugar results have improved 220 at 0700 and 198 at 12 noon and continue insulin as schedule. Needs one assist, gait belt, walker with transfers/ambulation. (R) hip incision open to air, with no s/s f infection, healing well
--- NOTE | 2022-09-04 13:27 | PC.NURSE ---
CARE CONFERENCE: Nursing, SW, dietary, and therapy present. Resident, sister Joyce, and brother Boo in attendance. POLST reviewed, resident is now FULL CODE as of last week. Discussed pain management--resident states his pain has been well controlled. Discussed endocrine follow up--scheduled for November 02. Resident, sister Joyce, and brother Boo are concerned about continued sporadic blood sugars. Resident reports that he would like to discharge to his apartment this week, but family does not agree that this is a good plan and feels resident should stay. Discussed risk vs. benefit of going home--resident is going to think about it until Saturday and make a decision. Dietary discussed the importance of carb counts and eating consistent meals. Resident reports that he does not like his current meal delivery service, and wonders if he could get on meals on wheels--SW to follow up. Resident returned from hospital stay with blisters on the backs of his heels from his shoes--these are now healed. Resident has new shoes--they are working well. Therapy discussed current needs, resident is much more independent, requires SBA with 2ww, he does still become easily fatigued. Is working on using 4ww with therapy, but should continue to use 2ww with staff. He will need home OT eval if he does decide to discharge. May need some adaptive equipment for discharge, sister reports she has some of the items at home already. PT recommends checking with [facility] in town for these if needed. Nursing has no further concerns. Resident is eating well, no concerns. Uses no restraints. Sister and brother involved in decision making as needed. Is not able to self-administer meds, administered by nurse. No falls since admission. Resident is considered a vulnerable adult due to need for assistance with ADLs and med management. Plans for possible discharge home in the next couple of weeks.
--- NOTE | 2022-09-04 14:04 | PC.SOCIAL ---
Resident's care conference was held today. Resident and his brother and sister attended. Resident has done well with therapy and will finish therapy next week Sat. OT is recommending a home safety eval if resident decides to discharge home. Resident's siblings would like resident to stay due to his blood sugars until he can get into the [facility] on 11/02. Resident thinks he will discharge back home next week rather than stay but will think about it this week. Will follow-up with resident on Saturday on his decision. If resident discharges home he will resume his nursing and homemaker services with [facility]. Resident will also benefit from in home therapy. Resident has had Moms meals at home but wants to switch to Meals on Wheels at discharge. A message was left with the Meals on Wheels coordinator at the hospital on route availability. A message was also left with resident's insurance case manager at [facility], eMlissa [place] @ [phone].
[2022-09-04 15:00] VITALS: TEMP 36.9; O2SAT 98
--- NOTE | 2022-09-04 16:36 | PC.NURSE ---
WOUNDS: Blisters to bilateral heels heeled. Lotion to be applied daily. Heel boots to be worn in bed. Right hip surgical incision healed. No other skin issues at this time. EBP precautions dc'd.
[2022-09-04] MEDS: MONTELUKAST 10 MG TABLET PO (20:02)
[2022-09-04] MEDS: PRAVASTATIN 80 MG TABLET 1 EACH PO (20:02)
[2022-09-04 23:00] VITALS: TEMP 36.5; O2SAT 97
[2022-09-05] MEDS: HYDROXYUREA 500 MG CAPSULE PO (08:02)
[2022-09-05] MEDS: FLUTICASONE/SALMETEROL 500/50 INHALER 1 EACH INH ×2 (08:02→15:48)
[2022-09-05] MEDS: lisinopriL 5 MG TABLET 2.5 MG PO (08:02)
[2022-09-05] MEDS: guaiFENesin 600 MG TAB.ER.12H 1200 MG PO ×2 (08:02→15:48)
[2022-09-05] MEDS: ASPIRIN 81 MG TABLET EC PO ×2 (08:02→15:47)
[2022-09-05] MEDS: ACETAMINOPHEN 500 MG TABLET 1000 MG PO ×3 (08:02→20:11)
[2022-09-05] MEDS: FLUTICASONE PROPIONATE NASAL 1 SPRAY NOSTRIL-B ×2 (08:02→15:47)
[2022-09-05] MEDS: SENNOSIDES 1 TAB TABLET 2 TAB PO ×2 (08:02→15:48)
[2022-09-05] MEDS: CETIRIZINE HCL 10 MG TABLET PO (08:03)
[2022-09-05 10:37] VITALS: TEMP 36.6; O2SAT 98
--- NOTE | 2022-09-05 11:01 | PC.NURSE ---
Low B/S : it was 53 at 0700. Ham sandwich (1/2 slice) and orange juice (1/2 glass) was given, recheck again and it was 135.
--- NOTE | 2022-09-05 11:46 | PC.NURSE ---
Discharge planning in process: Discussed in IDT that resident will decide next week if he will be going home after therapy ends. His family would like him to stay in the care center until after his endocrinology appointment in October. He will let staff know on Sunday 09/10. He will need OT home care, SN home care, and homemaker services in place. Will discuss with EVENT MARKETING COORDINATOR on Monday 09/11 before discharge for orders. Last day of therapy will be on 09/12/22 due to goals met.
--- NOTE | 2022-09-05 13:07 | PC.NURSE ---
Medicare: Resident has OT/PT as scheduled today,. He is able to walk using walker with 1 assist, gait belt to the dinning area. He shows improvement? with PT/OT which is schedule 5X a week. No c/o pain and continue schedule dose of Tylenol. Blood sugar results was 53 at 0700 and he was given ham sandwich and 1/2 glass of orange juice and it came up to 135. At noon he was 113 and was given the insulin as schedule. Needs one assist, gait belt, walker with transfers/ambulation. (R) hip incision open to air, with no s/s f infection, healing well .Blister on his foot are healing well with skin prep application.
[2022-09-05 15:00] VITALS: TEMP 36.8; O2SAT 96
--- NOTE | 2022-09-05 16:17 | PC.SPIRITC ---
I provided visit for connection and support.
[2022-09-05] MEDS: PRAVASTATIN 80 MG TABLET 1 EACH PO (20:14)
[2022-09-05] MEDS: MONTELUKAST 10 MG TABLET PO (20:14)
--- NOTE | 2022-09-05 22:03 | PC.NURSE ---
Skin: Redness and slight abrasion in between butt cheeks. Sensi-care applied. Mepilex covering for protection until further assessed by JEWEL BEARING FACER.
[2022-09-05 23:00] VITALS: TEMP 36.9; O2SAT 96
--- NOTE | 2022-09-06 07:09 | PC.NURSE ---
Week #3 - Toileting:Baseline and temporary care plan reviewed. No changes made. Temporary care plan updated: blisters on bilateral heels resolved.Resident is continent of bowel and bladder. Needs one assist, gait belt, walker with transfers/ambulates to the bathroom. Is able to use the call light when needs to use the toilet. Wears medium pull ups. Pads, john cares, clothing managed by staff. Vital signs reviewed, one episode of tachycardia. Continue weekly monitoring and refer to provider if needed. Skin: No issues at this time. 09/04/22 blisters on both heels resolved. Continue to elevate heels with heel protector when in bed/chair. Skin is checked during cares and on bath day.
[2022-09-06] MEDS: guaiFENesin 600 MG TAB.ER.12H 1200 MG PO ×2 (07:58→15:58)
[2022-09-06] MEDS: ASPIRIN 81 MG TABLET EC PO ×2 (07:58→15:58)
[2022-09-06] MEDS: HYDROXYUREA 500 MG CAPSULE PO (07:58)
[2022-09-06] MEDS: ACETAMINOPHEN 500 MG TABLET 1000 MG PO ×3 (07:58→19:33)
[2022-09-06] MEDS: FLUTICASONE PROPIONATE NASAL 1 SPRAY NOSTRIL-B ×2 (07:58→15:58)
[2022-09-06] MEDS: FLUTICASONE/SALMETEROL 500/50 INHALER 1 EACH INH ×2 (07:59→15:59)
[2022-09-06] MEDS: SENNOSIDES 1 TAB TABLET 2 TAB PO ×2 (07:59→15:59)
[2022-09-06] MEDS: CETIRIZINE HCL 10 MG TABLET PO (07:59)
[2022-09-06] MEDS: lisinopriL 5 MG TABLET 2.5 MG PO (07:59)
[2022-09-06 10:06] VITALS: TEMP 36.8; O2SAT 98
--- NOTE | 2022-09-06 10:07 | PC.NURSE ---
Medicare: No verbal or nonverbal s/s of pain this shift. Continues with OT/PT as ordered. Is assist of 1 with transfers and ambulation
--- NOTE | 2022-09-06 11:47 | PC.SOCIAL ---
Addendum entered by Prudence Kennedy FINANCIAL PROFESSIONAL 09/06/22 12:50: Received call back from [facility] worker, Melissa Ayala [phone], who confirmed the [employer] [facility] Medical Assistance application being filled out by resident and sister is the correct application if resident is going to stay at the intermediate facility past his short term rehab stay or if he is to return home and need additional waiver services. Melissa recommended this completed application be faxed to her at [facility] so she can get it to the correct people for prompt processing. The [facility] fax number is [phone]. Melissa stated that if resident does return home, he will need a [id number] visit prior to discharge to qualify him for additional services at home. Melissa is looking into whether that visit will be [facility] or [facility] responsibility. If resident returns home, Melissa states he would be eligible to resume home health care services through [facility] fro Home health aid 3xweek, nurse visit 1xweek, and housekeeping 2xweek. Currently there is no PT available, so pt would need to complete any PT rehab needs through out-pt services. Melissa requested resident make a decision regarding returning home or staying at the facility longer by Saturday09/10/22. certified social workers in health care to follow up at that time. Original Note: Social Work: Met with pt and brother and sister at their request. Resident has received forms from [facility] financial worker, Melissa, to fill out for [facility] Medical Assistance. Sister had questions about the application which were answered. Sister will assist resident in filling out paperwork today and requested this be faxed to [facility] when completed. Sister states she thinks Melissa from [facility] is coming out to the facility tomorrow to do an assessment with resident. Called Melissa at [facility] and left message requesting callback regarding this and to inform her that the [facility] application is being completed and that resident and family are planning for resident to stay at this facility at this time. Resident is hopeful to return to his apartment in the future. certified social workers in health care to follow up as needed.
--- NOTE | 2022-09-06 12:21 | PC.NURSE ---
Addendum entered by Christina Johnson RN 09/06/22 13:59: Skin: Coccyx/butt cheeks assessed by PRODUCT SAFETY TECHNICAL ASSISTANT. Skin issue is r/t moisture or shearing. Apply barrier cream until healed. Chair cushion applied. Original Note: Order: D/C teds, add blood sugar check to 0200, Insulin Aspart for 0200 BS check: above 400 - 5units above 500 - 7 units, above 600 call provider. Continue other sliding scale for meals.
--- NOTE | 2022-09-06 12:57 | PC.NURSE ---
Blood sugar: Blood sugar at 11am was noted to be 88 with no s/s of hypoglycemia. Resident given 1/2 sandwich and half of a banana. Rechecked 1/2hr later and was 121. Went to lunch and rechecked after lunch and was 184. Was given insulin at that time
[2022-09-06 15:00] VITALS: TEMP 36.4; O2SAT 96
[2022-09-06] MEDS: MONTELUKAST 10 MG TABLET PO (19:33)
[2022-09-06] MEDS: PRAVASTATIN 80 MG TABLET 1 EACH PO (19:33)
[2022-09-06 23:00] VITALS: TEMP 36.9; O2SAT 95
[2022-09-07] MEDS: ASPIRIN 81 MG TABLET EC PO ×2 (08:31→16:09)
[2022-09-07] MEDS: ACETAMINOPHEN 500 MG TABLET 1000 MG PO ×3 (08:31→19:46)
[2022-09-07] MEDS: FLUTICASONE PROPIONATE NASAL 1 SPRAY NOSTRIL-B ×2 (08:31→16:09)
[2022-09-07] MEDS: HYDROXYUREA 500 MG CAPSULE PO (08:31)
[2022-09-07] MEDS: guaiFENesin 600 MG TAB.ER.12H 1200 MG PO ×2 (08:31→16:09)
[2022-09-07] MEDS: FLUTICASONE/SALMETEROL 500/50 INHALER 1 EACH INH ×2 (08:33→16:09)
[2022-09-07] MEDS: lisinopriL 5 MG TABLET 2.5 MG PO (08:33)
[2022-09-07] MEDS: CETIRIZINE HCL 10 MG TABLET PO (08:35)
[2022-09-07] MEDS: SENNOSIDES 1 TAB TABLET 2 TAB PO ×2 (08:35→16:09)
[2022-09-07 10:27] VITALS: TEMP 36.4; O2SAT 98
--- NOTE | 2022-09-07 10:49 | PC.NURSE ---
Resident given a NOMNC for halfway services ending 09/12/22. Informed if he disagrees with the decision he has a right to an appeal and he can contact [facility]. Resident stated understanding of notice.
--- NOTE | 2022-09-07 13:33 | PC.SOCIAL ---
Met with patient's brother and sister. Rossy was walking in the hallway with Vincenzo Given original [facility] Medical Assistance form back to family. This clinical writer explained that it had been faxed to the [facility] yesterday. Family had no questions or concerns at this time. Social Work to follow up as needed.
[2022-09-07 15:00] VITALS: TEMP 36.6; O2SAT 98
[2022-09-07] MEDS: MONTELUKAST 10 MG TABLET PO (19:46)
[2022-09-07] MEDS: PRAVASTATIN 80 MG TABLET 1 EACH PO (19:46)
[2022-09-07 23:00] VITALS: TEMP 36.9; O2SAT 96
[2022-09-08 07:00] VITALS: TEMP 36.8; O2SAT 98
[2022-09-08] MEDS: ASPIRIN 81 MG TABLET EC PO ×2 (08:25→16:04)
[2022-09-08] MEDS: ACETAMINOPHEN 500 MG TABLET 1000 MG PO ×3 (08:25→20:03)
[2022-09-08] MEDS: lisinopriL 5 MG TABLET 2.5 MG PO (08:26)
[2022-09-08] MEDS: HYDROXYUREA 500 MG CAPSULE PO (08:26)
[2022-09-08] MEDS: guaiFENesin 600 MG TAB.ER.12H 1200 MG PO ×2 (08:26→16:04)
[2022-09-08] MEDS: FLUTICASONE PROPIONATE NASAL 1 SPRAY NOSTRIL-B ×2 (08:26→16:04)
[2022-09-08] MEDS: SENNOSIDES 1 TAB TABLET 2 TAB PO ×2 (08:27→16:04)
[2022-09-08] MEDS: CETIRIZINE HCL 10 MG TABLET PO (08:27)
[2022-09-08] MEDS: FLUTICASONE/SALMETEROL 500/50 INHALER 1 EACH INH ×2 (08:27→16:04)
--- NOTE | 2022-09-08 11:03 | PC.NURSE ---
Medicare note: Resident has had no verbal or nonverbal complaints of pain noted so far this shift with rest encouraged, repositioning performed and scheduled Tylenol administered. Protective cream applied to intergluteal cleft per tx order in place. Surgical incision to R hip healed with no s/s of infection. Resident continues on PT and OT services as ordered. He remains assist of 1 with transferring and ambulation. Vital signs: B/P 120/85, P 66, R 18, T 98.3, O2 sat 98% on RA.
[2022-09-08 15:00] VITALS: TEMP 36.8; O2SAT 99
[2022-09-08] MEDS: MONTELUKAST 10 MG TABLET PO (20:04)
[2022-09-08] MEDS: PRAVASTATIN 80 MG TABLET 1 EACH PO (20:04)
[2022-09-08 23:00] VITALS: TEMP 36.9; O2SAT 96
[2022-09-09 07:00] VITALS: BP 111/65; PULSE 78; RESP 16; TEMP 36.6; O2SAT 96; BMI 20.3
[2022-09-09] MEDS: ACETAMINOPHEN 500 MG TABLET 1000 MG PO ×3 (07:44→20:28)
[2022-09-09] MEDS: ASPIRIN 81 MG TABLET EC PO ×2 (07:45→16:30)
[2022-09-09] MEDS: guaiFENesin 600 MG TAB.ER.12H 1200 MG PO ×2 (07:47→16:31)
[2022-09-09] MEDS: FLUTICASONE PROPIONATE NASAL 1 SPRAY NOSTRIL-B ×2 (07:47→16:30)
[2022-09-09] MEDS: lisinopriL 5 MG TABLET 2.5 MG PO (07:48)
[2022-09-09] MEDS: HYDROXYUREA 500 MG CAPSULE PO (07:48)
[2022-09-09] MEDS: FLUTICASONE/SALMETEROL 500/50 INHALER 1 EACH INH ×2 (07:48→16:31)
[2022-09-09] MEDS: CETIRIZINE HCL 10 MG TABLET PO (07:49)
[2022-09-09] MEDS: SENNOSIDES 1 TAB TABLET 2 TAB PO ×2 (07:49→16:31)
--- NOTE | 2022-09-09 10:54 | PC.NURSE ---
Medicare note: Resident has had no verbal or nonverbal indications of pain noted throughout the shift today with rest encouraged, repositioning performed and scheduled Tylenol administered per order. Surgical incisions to R hip remain held together with surgical glue and remain open to air with no warmth, edema, redness or drainage observed upon inspection. CMS noted to be intact. Resident remains on PT and OT services per orders in place. Resident is able to transfer and ambulate with limited assist of 1 using FWW and gait belt. VS: B/P 111/65, P 78, R 16, T 97.8, O2 sat 96% on RA. Resident's weight noted to be 150 today when obtained undressed on bath scale. This is a 7 pound decrease when compared to last week. Nursing to obtain reweigh tomorrow morning per protocol. Blood sugar of 321 before breakfast today. No s/sx of hyperglycemia noted with scheduled insulins administered and water encouraged.
[2022-09-09 15:00] VITALS: TEMP 37.1; O2SAT 99
[2022-09-09] MEDS: PRAVASTATIN 80 MG TABLET 1 EACH PO (20:28)
[2022-09-09] MEDS: MONTELUKAST 10 MG TABLET PO (20:28)
[2022-09-09 23:00] VITALS: TEMP 37.2; O2SAT 97
[2022-09-10] MEDS: ACETAMINOPHEN 500 MG TABLET 1000 MG PO ×3 (07:49→19:51)
[2022-09-10] MEDS: ASPIRIN 81 MG TABLET EC PO ×2 (07:49→16:14)
[2022-09-10] MEDS: FLUTICASONE PROPIONATE NASAL 1 SPRAY NOSTRIL-B ×2 (07:49→16:14)
[2022-09-10] MEDS: FLUTICASONE/SALMETEROL 500/50 INHALER 1 EACH INH ×2 (07:50→16:14)
[2022-09-10] MEDS: guaiFENesin 600 MG TAB.ER.12H 1200 MG PO ×2 (07:50→16:14)
[2022-09-10] MEDS: lisinopriL 5 MG TABLET 2.5 MG PO (07:50)
[2022-09-10] MEDS: CETIRIZINE HCL 10 MG TABLET PO (07:50)
[2022-09-10] MEDS: SENNOSIDES 1 TAB TABLET 2 TAB PO ×2 (07:50→16:15)
[2022-09-10] MEDS: HYDROXYUREA 500 MG CAPSULE PO (07:50)
--- NOTE | 2022-09-10 09:27 | PC.SOCIAL ---
Confirmed resident would need to be screened for the EW waiver through [facility] if and when he decides to return home to start services again. [facility] would have to do the screening then the case would go back to Melissa Birmingham at [facility] and she would initiate [facility] again for nursing 1x a week and a MANAGER AMBULATORY 3x a week. Melissa asked if a referral is made to [facility] for a EW assessment that we tell [facility] she has been resident's housing case manager at [phone].
[2022-09-10 10:24] VITALS: TEMP 36.6; O2SAT 97
--- NOTE | 2022-09-10 10:26 | PC.NURSE ---
Medicare: Continues with OT/PT as ordered. No verbal or nonverbal s/s of pain this shift. Transfers and ambulates with assist of 1. Temp 97.8, O2 97% on room air.
--- NOTE | 2022-09-10 12:06 | PC.NURSE ---
COVID OUTBREAK TESTING Resident gave verbal consent for outbreak COVID testing. Resident is currently asymptomatic.? Resident/family will be notified only if resident is positive.
[2022-09-10 12:49] LABS: SARS PCR* Negative SARS-CoV-2 (Negative)
[2022-09-10 15:48] VITALS: TEMP 36.7; O2SAT 97
[2022-09-10] MEDS: MONTELUKAST 10 MG TABLET PO (19:51)
[2022-09-10] MEDS: PRAVASTATIN 80 MG TABLET 1 EACH PO (19:51)
[2022-09-10 23:00] VITALS: TEMP 37.2; O2SAT 97
[2022-09-11] MEDS: ASPIRIN 81 MG TABLET EC PO (08:08)
[2022-09-11] MEDS: ACETAMINOPHEN 500 MG TABLET 1000 MG PO ×3 (08:08→19:58)
[2022-09-11] MEDS: CETIRIZINE HCL 10 MG TABLET PO (08:09)
[2022-09-11] MEDS: FLUTICASONE/SALMETEROL 500/50 INHALER 1 EACH INH ×2 (08:09→15:52)
[2022-09-11] MEDS: SENNOSIDES 1 TAB TABLET 2 TAB PO ×2 (08:09→15:52)
[2022-09-11] MEDS: HYDROXYUREA 500 MG CAPSULE PO (08:09)
[2022-09-11] MEDS: FLUTICASONE PROPIONATE NASAL 1 SPRAY NOSTRIL-B ×2 (08:09→15:51)
[2022-09-11] MEDS: guaiFENesin 600 MG TAB.ER.12H 1200 MG PO ×2 (08:09→15:52)
[2022-09-11] MEDS: lisinopriL 5 MG TABLET 2.5 MG PO (08:09)
[2022-09-11 10:15] VITALS: TEMP 36.3; O2SAT 98
--- NOTE | 2022-09-11 13:15 | PC.NURSE ---
Medicare: Resident has only OT scheduled today,. He is able to walk using walker with 1 assist, gait belt? to the dinning area and around his room.?No c/o pain and continue schedule dose of Tylenol. Blood sugar results was 179 0700 and 123 at noon. (R) hip incision open to air, with no s/s f infection, healing well .Blister on his foot has already healed. Vitals are WNL.
[2022-09-11 15:00] VITALS: TEMP 36.7; O2SAT 98
[2022-09-11] MEDS: PRAVASTATIN 80 MG TABLET 1 EACH PO (19:58)
[2022-09-11] MEDS: MONTELUKAST 10 MG TABLET PO (19:58)
--- NOTE | 2022-09-11 21:37 | PC.NURSE ---
At 04:30 BG reading was 37, Res is alert and oriented, denied any hypoglycemic symptoms. He stated Maybe because I did not anything after Lunch until now. but I am feeling normal. If I have low reading I usually feel my knee shaking. Offered cup of orange juice and 2 oreo cookies. Recheck afer 30 mins BG ws 68. Res ate dinner BG 178, scheduled Novolog 12units given. At 1999 BG was 153. Offered 1/2 meat sandwich and 1 cup of milk. Re check 20:30 BG 153, schedule Levimer 20 units given.
[2022-09-11 23:00] VITALS: TEMP 36.8; O2SAT 95
--- NOTE | 2022-09-12 03:46 | PC.NURSE ---
Blood glucose obtained at approximately 0240 with reading of 51. Resident denied any s/sx of hypoglycemia. Gave 8oz grape juice, 1/2 meat sandwich, and yogurt cup. Rechecked blood glucose approximately 30 minutes later with reading of 49. Gave resident ice cream cup and carton of chocolate milk and again rechecked 30 minutes later with reading of 108. Will monitor.
[2022-09-12] MEDS: guaiFENesin 600 MG TAB.ER.12H 1200 MG PO ×2 (07:56→15:32)
[2022-09-12] MEDS: FLUTICASONE PROPIONATE NASAL 1 SPRAY NOSTRIL-B ×2 (07:56→15:32)
[2022-09-12] MEDS: ASPIRIN 81 MG TABLET EC PO (07:56)
[2022-09-12] MEDS: HYDROXYUREA 500 MG CAPSULE PO (07:56)
[2022-09-12] MEDS: ACETAMINOPHEN 500 MG TABLET 1000 MG PO ×3 (07:56→20:03)
[2022-09-12] MEDS: lisinopriL 5 MG TABLET 2.5 MG PO (07:58)
[2022-09-12] MEDS: FLUTICASONE/SALMETEROL 500/50 INHALER 1 EACH INH ×2 (07:58→15:32)
[2022-09-12] MEDS: SENNOSIDES 1 TAB TABLET 2 TAB PO ×2 (07:59→15:32)
[2022-09-12] MEDS: CETIRIZINE HCL 10 MG TABLET PO (07:59)
[2022-09-12 08:22] VITALS: TEMP 36.8; O2SAT 98
--- NOTE | 2022-09-12 10:19 | PC.NURSE ---
Medicare note: Resident had PT/OT as per schedule. No c/o pain , continue to take Tylenol as scheduled. Resident has been ambulating on his own in his room using walker. Surgical incisions to right hip is healing well with no s/s of infection. Vital as follows: B/P 110/60, P 80, R 18, T 98.2, O2 sat 97% on RA. Blood sugar pre breakfast was 197 and insulin was given as scheduled. Blisters on his heel has dried and resident is able to walk without any pain.
[2022-09-12 15:00] VITALS: TEMP 36.7; O2SAT 96
[2022-09-12] MEDS: MONTELUKAST 10 MG TABLET PO (20:03)
[2022-09-12] MEDS: PRAVASTATIN 80 MG TABLET 1 EACH PO (20:03)
[2022-09-12 23:00] VITALS: TEMP 37; O2SAT 96
--- NOTE | 2022-09-13 03:13 | PC.NURSE ---
WEEKLY CHARTING - WEEK 4: Vital signs reviewed - BP is variable with low diastolic values. Admission and temporary care plan reviewed - no change. No documented behaviors in the last month. Does not receive any psychotropic medications. Able to communicate needs. No hearing impairment. Visual deficit is corrected with glasses. Cognitively intact with some forgetfulness. Multiple insulin dosing changes. All medications administered by licensed nurse. Blood glucose values are labile staff monitor per order and PRN.
[2022-09-13] MEDS: guaiFENesin 600 MG TAB.ER.12H 1200 MG PO ×2 (07:46→16:12)
[2022-09-13] MEDS: FLUTICASONE PROPIONATE NASAL 1 SPRAY NOSTRIL-B ×2 (07:46→16:12)
[2022-09-13] MEDS: ACETAMINOPHEN 500 MG TABLET 1000 MG PO ×3 (07:46→19:22)
[2022-09-13] MEDS: ASPIRIN 81 MG TABLET EC PO (07:46)
[2022-09-13] MEDS: HYDROXYUREA 500 MG CAPSULE PO (07:46)
[2022-09-13] MEDS: FLUTICASONE/SALMETEROL 500/50 INHALER 1 EACH INH ×2 (07:47→16:12)
[2022-09-13] MEDS: lisinopriL 5 MG TABLET 2.5 MG PO (07:47)
[2022-09-13] MEDS: SENNOSIDES 1 TAB TABLET 2 TAB PO ×2 (07:56→16:12)
[2022-09-13] MEDS: CETIRIZINE HCL 10 MG TABLET PO (07:56)
[2022-09-13 09:01] VITALS: TEMP 36.5; O2SAT 98
--- NOTE | 2022-09-13 09:14 | PC.SPIRITC ---
Addendum entered by Lynn Muñoz 09/13/22 09:19: Late entry from September 12, 2022. Original Note: I now I need to stay but I really hope it isn't until November 02. Rossy talked about being disappointed by prolonged stay, missing the people at his apartment complex, and his need to get his numbers under control. I provided support, encouraged him to talk with his medical team about ways to address his numbers, and encouragement.
--- NOTE | 2022-09-13 10:45 | PC.NURSE ---
Medicare note: Resident had PT/OT as per schedule. No c/o pain , continue to take Tylenol 1000mg TID as scheduled.?Resident has been ambulating on his own in his room and to the dining area using walker with 1 assist. Surgical incisions to right hip is healing well with no s/s of infection.Vital as follows: B/P? 116/68, P 78, R 18, T 97.7 ,O2 sat 98% on RA.? Blood sugar pre breakfast was? 491 and insulin was given as scheduled. Blisters on his heel has dried and resident is able to walk without any pain. He is independent going to the bathroom by himself using the walker.
--- NOTE | 2022-09-13 12:40 | PC.NURSE ---
WEEKLY CHARTING - WEEK 4: Vital signs reviewed . no changes. Comprehensive care plan and temporary care plan was reviewed-made changes. Resident is now able to ambulate in his own on his own. He is currently assisted X1 staff to ambulate to the dining area. No documented behavior issue last month and currently, he is very pleasant, sometimes jokes and friendly. He does not receive any psychotropic medications and able to sleep well at night. He has a very close relationship with his brother and sister and they come to visit him often. Able to communicate needs. No hearing impairment. Visual deficit is corrected with glasses. His main concern is about his blood sugar results which has been fluctuating between low and high.. Insulin dosing was reviewed and made changes multiple time with additional dosage at 0200 in the event if it is higher than 400. All medications administered by licensed nurse and there is no any adverse effects of the medication noted.
[2022-09-13 15:00] VITALS: TEMP 36.7; O2SAT 99
--- NOTE | 2022-09-13 15:15 | PC.NURSE ---
DUB ROOM ENGINEER Binder updated with PT orders for 2x week under Med B. Discussed by Physical therapy department today in IDT.
[2022-09-13] MEDS: MONTELUKAST 10 MG TABLET PO (19:22)
[2022-09-13] MEDS: PRAVASTATIN 80 MG TABLET 1 EACH PO (19:24)
[2022-09-13 23:00] VITALS: TEMP 37; O2SAT 95
[2022-09-14] MEDS: ACETAMINOPHEN 500 MG TABLET 1000 MG PO ×3 (08:03→20:24)
[2022-09-14] MEDS: FLUTICASONE PROPIONATE NASAL 1 SPRAY NOSTRIL-B ×2 (08:03→16:54)
[2022-09-14] MEDS: ASPIRIN 81 MG TABLET EC PO (08:03)
[2022-09-14] MEDS: FLUTICASONE/SALMETEROL 500/50 INHALER 1 EACH INH ×2 (08:04→16:54)
[2022-09-14] MEDS: SENNOSIDES 1 TAB TABLET 2 TAB PO ×2 (08:04→16:55)
[2022-09-14] MEDS: HYDROXYUREA 500 MG CAPSULE PO (08:04)
[2022-09-14] MEDS: guaiFENesin 600 MG TAB.ER.12H 1200 MG PO ×2 (08:04→16:54)
[2022-09-14] MEDS: lisinopriL 5 MG TABLET 2.5 MG PO (08:04)
[2022-09-14] MEDS: CETIRIZINE HCL 10 MG TABLET PO (08:09)
[2022-09-14 10:27] VITALS: TEMP 36.9; O2SAT 98
--- NOTE | 2022-09-14 10:30 | PC.NURSE ---
Medicare: Medicare: Continues with OT/PT as ordered. No verbal or nonverbal s/s of pain this shift. Transfers and ambulates with assist of 1. Temp 98.4, O2 98% on room air.
--- NOTE | 2022-09-14 13:33 | PC.NURSE ---
Physician's Visit: Resident seen by . Accu checks reviewed. Order: D/C 2am sliding scale, Change Insulin Aspart to: 10 units QAM & midday, 12 units QPM, D/C Lisinopril, update next week with blood sugars, PT.
[2022-09-14 15:00] VITALS: TEMP 36.6; O2SAT 97
[2022-09-14] MEDS: PRAVASTATIN 80 MG TABLET 1 EACH PO (20:24)
[2022-09-14] MEDS: MONTELUKAST 10 MG TABLET PO (20:24)
[2022-09-14 23:51] VITALS: TEMP 36.7; O2SAT 97
[2022-09-15] MEDS: FLUTICASONE PROPIONATE NASAL 1 SPRAY NOSTRIL-B ×2 (07:49→15:18)
[2022-09-15] MEDS: ASPIRIN 81 MG TABLET EC PO (07:49)
[2022-09-15] MEDS: guaiFENesin 600 MG TAB.ER.12H 1200 MG PO ×2 (07:49→15:18)
[2022-09-15] MEDS: ACETAMINOPHEN 500 MG TABLET 1000 MG PO ×3 (07:49→19:40)
[2022-09-15] MEDS: FLUTICASONE/SALMETEROL 500/50 INHALER 1 EACH INH ×2 (07:50→15:18)
[2022-09-15] MEDS: HYDROXYUREA 500 MG CAPSULE PO (07:50)
[2022-09-15] MEDS: SENNOSIDES 1 TAB TABLET 2 TAB PO ×2 (07:51→15:18)
[2022-09-15] MEDS: CETIRIZINE HCL 10 MG TABLET PO (07:52)
[2022-09-15 10:11] VITALS: TEMP 36.8; O2SAT 97
[2022-09-15 10:17] VITALS: BP 98/56
--- NOTE | 2022-09-15 10:18 | PC.NURSE ---
Medicare: No verbal or nonverbal s/s of pain, continues with PT as ordered, B/P 98/56, P72, O2 97%, R18, T98.2
[2022-09-15 15:00] VITALS: TEMP 36.9; O2SAT 97
[2022-09-15] MEDS: MONTELUKAST 10 MG TABLET PO (19:40)
[2022-09-15] MEDS: PRAVASTATIN 80 MG TABLET 1 EACH PO (19:40)
[2022-09-16 00:10] VITALS: TEMP 36.8; O2SAT 99
[2022-09-16] MEDS: FLUTICASONE PROPIONATE NASAL 1 SPRAY NOSTRIL-B ×2 (08:06→15:30)
[2022-09-16] MEDS: ACETAMINOPHEN 500 MG TABLET 1000 MG PO ×3 (08:06→19:44)
[2022-09-16] MEDS: ASPIRIN 81 MG TABLET EC PO (08:06)
[2022-09-16] MEDS: guaiFENesin 600 MG TAB.ER.12H 1200 MG PO ×2 (08:06→15:30)
[2022-09-16] MEDS: FLUTICASONE/SALMETEROL 500/50 INHALER 1 EACH INH ×2 (08:07→15:30)
[2022-09-16] MEDS: HYDROXYUREA 500 MG CAPSULE PO (08:07)
[2022-09-16] MEDS: CETIRIZINE HCL 10 MG TABLET PO (08:08)
[2022-09-16] MEDS: SENNOSIDES 1 TAB TABLET 2 TAB PO ×2 (08:08→15:30)
[2022-09-16 09:53] VITALS: BP 113/66; PULSE 88; RESP 18; TEMP 36.8; O2SAT 94
--- NOTE | 2022-09-16 09:57 | PC.NURSE ---
Medicare: Vitals taken and charted, no verbal or nonverbal s/s of pain this shift, is assist of 1 with all transfers, ambulation
[2022-09-16 12:47] VITALS: BMI 21.7
[2022-09-16 15:00] VITALS: TEMP 37.1; O2SAT 98
[2022-09-16] MEDS: MONTELUKAST 10 MG TABLET PO (19:44)
[2022-09-16] MEDS: PRAVASTATIN 80 MG TABLET 1 EACH PO (19:44)
[2022-09-16 23:50] VITALS: TEMP 36.5; O2SAT 97
[2022-09-17 07:00] VITALS: TEMP 36.6; O2SAT 97
[2022-09-17] MEDS: ASPIRIN 81 MG TABLET EC PO (08:00)
[2022-09-17] MEDS: ACETAMINOPHEN 500 MG TABLET 1000 MG PO ×3 (08:00→20:19)
[2022-09-17] MEDS: guaiFENesin 600 MG TAB.ER.12H 1200 MG PO ×2 (08:01→17:06)
[2022-09-17] MEDS: FLUTICASONE PROPIONATE NASAL 1 SPRAY NOSTRIL-B ×2 (08:01→17:02)
[2022-09-17] MEDS: HYDROXYUREA 500 MG CAPSULE PO (08:02)
[2022-09-17] MEDS: CETIRIZINE HCL 10 MG TABLET PO (08:02)
[2022-09-17] MEDS: FLUTICASONE/SALMETEROL 500/50 INHALER 1 EACH INH ×2 (08:02→17:07)
[2022-09-17] MEDS: SENNOSIDES 1 TAB TABLET 2 TAB PO ×2 (08:02→17:06)
[2022-09-17 09:25] VITALS: BP 112/63
--- NOTE | 2022-09-17 09:59 | PC.NURSE ---
Medicare note: Resident has had no verbal or nonverbal complaints of pain noted this shift with rest encouraged, repositioning performed and scheduled Tylenol administered. Resident able to complete bed mobility, transferring and ambulation independently when in room. This is per PT guideline written on 09/10/22. Limited assist of 1 using FWW and gait belt when ambulating outside of room including to and from meals with staff holding on to gait belt. B/P 112/63, R 18, P 74, T 97.9, O2 sat 97% on RA. CMS intact. Resident remains on therapy services per current orders in place. Blood sugar noted to be elevated at 476 before breakfast today with insulins administered per orders. Resident denied hyperglycemia symptoms when asked with water encouraged.
--- NOTE | 2022-09-17 10:56 | PC.NURSE ---
COVID OUTBREAK TESTING Resident and residents family gave verbal consent for outbreak COVID testing. Resident is currently asymptomatic.? Resident/family will be notified only if resident is positive.
[2022-09-17 12:32] LABS: SARS PCR* Negative SARS-CoV-2 (Negative)
--- NOTE | 2022-09-17 12:34 | PC.NURSE ---
Heel boots no longer needed. Resident is up and ambulating independently in room. Heels are healed.
[2022-09-17 15:00] VITALS: TEMP 36.2; O2SAT 98
[2022-09-17 15:45] VITALS: BMI 21.7
[2022-09-17] MEDS: MONTELUKAST 10 MG TABLET PO (20:20)
[2022-09-17] MEDS: PRAVASTATIN 80 MG TABLET 1 EACH PO (20:20)
[2022-09-18 01:24] VITALS: TEMP 36.8; O2SAT 97
[2022-09-18] MEDS: ACETAMINOPHEN 500 MG TABLET 1000 MG PO ×3 (07:56→20:26)
[2022-09-18] MEDS: ASPIRIN 81 MG TABLET EC PO (07:57)
[2022-09-18] MEDS: HYDROXYUREA 500 MG CAPSULE PO (07:57)
[2022-09-18] MEDS: FLUTICASONE PROPIONATE NASAL 1 SPRAY NOSTRIL-B ×2 (07:57→16:59)
[2022-09-18] MEDS: guaiFENesin 600 MG TAB.ER.12H 1200 MG PO ×2 (07:57→17:00)
[2022-09-18] MEDS: FLUTICASONE/SALMETEROL 500/50 INHALER 1 EACH INH ×2 (08:00→16:59)
[2022-09-18] MEDS: SENNOSIDES 1 TAB TABLET 2 TAB PO ×2 (08:03→17:06)
[2022-09-18] MEDS: CETIRIZINE HCL 10 MG TABLET PO (08:03)
[2022-09-18 10:22] VITALS: TEMP 36.6; O2SAT 94
--- NOTE | 2022-09-18 10:27 | PC.NURSE ---
Medicare: Vitals taken and charted, no verbal or nonverbal s/s of pain this shift, is assist of 1 with all transfers, ambulation
--- NOTE | 2022-09-18 13:01 | PC.NURSE ---
Status: Was noted that resident's blood sugar before lunch was 53 with resident having no s/s of hypoglycemia. Was given oj and half of a sandwich. Went to lunch and blood sugar was rechecked and was 223 with insulin given at that time. BAND EDGER was updated with no new orders.
[2022-09-18 15:00] VITALS: TEMP 36.7; O2SAT 93
[2022-09-18] MEDS: MONTELUKAST 10 MG TABLET PO (20:26)
[2022-09-18] MEDS: PRAVASTATIN 80 MG TABLET 1 EACH PO (20:27)
[2022-09-18 23:00] VITALS: TEMP 37; O2SAT 98
[2022-09-19] MEDS: ASPIRIN 81 MG TABLET EC PO (07:41)
[2022-09-19] MEDS: HYDROXYUREA 500 MG CAPSULE PO (07:41)
[2022-09-19] MEDS: FLUTICASONE/SALMETEROL 500/50 INHALER 1 EACH INH ×2 (07:41→15:53)
[2022-09-19] MEDS: FLUTICASONE PROPIONATE NASAL 1 SPRAY NOSTRIL-B ×2 (07:41→15:52)
[2022-09-19] MEDS: SENNOSIDES 1 TAB TABLET 2 TAB PO ×2 (07:41→15:53)
[2022-09-19] MEDS: ACETAMINOPHEN 500 MG TABLET 1000 MG PO ×3 (07:41→19:51)
[2022-09-19] MEDS: guaiFENesin 600 MG TAB.ER.12H 1200 MG PO ×2 (07:41→15:53)
[2022-09-19] MEDS: CETIRIZINE HCL 10 MG TABLET PO (07:42)
[2022-09-19 09:59] VITALS: TEMP 36.4; O2SAT 99
[2022-09-19 15:00] VITALS: TEMP 36.9; O2SAT 98
[2022-09-19] MEDS: MONTELUKAST 10 MG TABLET PO (19:51)
[2022-09-19] MEDS: PRAVASTATIN 80 MG TABLET 1 EACH PO (19:52)
[2022-09-19 23:00] VITALS: TEMP 36.8; O2SAT 97
--- NOTE | 2022-09-20 01:58 | PC.NURSE ---
WEEKLY CHARTING - WEEK 1: Vital signs reviewed. Low diastolic BP values at times. Temporary and baseline care plan reviewed - no change. Denies pain when asked. Receives acetaminophen 1000mg TID for pain management which is noted to be effective. Limited assist of 1 with dressing lower body. Able to dress upper body independently. Able to complete grooming tasks and oral cares independently. Assist of 1 with bathing. Receives a diabetic diet with regular textures and thin liquids. Able to eat independently after setup. Resident reports he is able to chew most foods. Unable to chew hard food items such as nuts, raw vegetables, etc. d/t dental status. Resident makes food selections appropriately.
--- NOTE | 2022-09-20 07:23 | PC.NURSE ---
Week #1-ADL's: Baseline and temporary care plan reviewed. No changes made and nothing added to temporary care plan. Resident needs one assist with dressing, grooming and bathing. Is able to dress upper half after set up. S Does oral cares after set up. Does not have upper teeth/denture, few teeth lower. Feed self after set up. Is on diabetic diet, protein supplement @HS. No problems with chewing/swallowing reported. Is able to chew most of the food that is not hard. Vital signs reviewed, no concerns at this time. 09/14 Lisinopril was discontinued. Continue weekly VS monitoring. Pain: Has no complain. Pain is controlled with Tylenol 1000mg TID. Resident is able to verbalize when in pain.?
[2022-09-20] MEDS: ACETAMINOPHEN 500 MG TABLET 1000 MG PO ×3 (08:00→19:36)
[2022-09-20] MEDS: guaiFENesin 600 MG TAB.ER.12H 1200 MG PO ×2 (08:00→15:15)
[2022-09-20] MEDS: FLUTICASONE PROPIONATE NASAL 1 SPRAY NOSTRIL-B ×2 (08:00→15:15)
[2022-09-20] MEDS: FLUTICASONE/SALMETEROL 500/50 INHALER 1 EACH INH ×2 (08:00→15:15)
[2022-09-20] MEDS: HYDROXYUREA 500 MG CAPSULE PO (08:00)
[2022-09-20] MEDS: ASPIRIN 81 MG TABLET EC PO (08:00)
[2022-09-20] MEDS: SENNOSIDES 1 TAB TABLET 2 TAB PO ×2 (08:02→15:15)
[2022-09-20] MEDS: CETIRIZINE HCL 10 MG TABLET PO (08:03)
[2022-09-20 10:32] VITALS: TEMP 36.8; O2SAT 99
[2022-09-20 15:00] VITALS: TEMP 37.1; O2SAT 99
--- NOTE | 2022-09-20 16:44 | PC.SOCIAL ---
Phone call to resident's sister, Joyce Villa, to set up a resident care conference due to sig change for resident coming off from therapy. Care Conference is set for Sunday September 25, 2022 at 1:00 pm. Resident's sister will provide information to resident's brother. Social Work will follow up as necessary.
[2022-09-20] MEDS: MONTELUKAST 10 MG TABLET PO (19:36)
[2022-09-20] MEDS: PRAVASTATIN 80 MG TABLET 1 EACH PO (19:36)
[2022-09-20 23:00] VITALS: TEMP 37; O2SAT 97
[2022-09-21] MEDS: ACETAMINOPHEN 500 MG TABLET 1000 MG PO ×3 (07:59→20:09)
[2022-09-21] MEDS: ASPIRIN 81 MG TABLET EC PO (08:00)
[2022-09-21] MEDS: SENNOSIDES 1 TAB TABLET 2 TAB PO ×2 (08:00→16:40)
[2022-09-21] MEDS: FLUTICASONE PROPIONATE NASAL 1 SPRAY NOSTRIL-B ×2 (08:00→16:39)
[2022-09-21] MEDS: CETIRIZINE HCL 10 MG TABLET PO (08:00)
[2022-09-21] MEDS: HYDROXYUREA 500 MG CAPSULE PO (08:00)
[2022-09-21] MEDS: guaiFENesin 600 MG TAB.ER.12H 1200 MG PO ×2 (08:00→16:39)
[2022-09-21] MEDS: FLUTICASONE/SALMETEROL 500/50 INHALER 1 EACH INH ×2 (08:01→16:40)
[2022-09-21 10:14] VITALS: TEMP 36.9; O2SAT 98
--- NOTE | 2022-09-21 13:03 | PC.NURSE ---
Physician's Visit: Resident seen by . Accu checks reviewed. Order: D/C 2am Accu check, Insulin Levemir reduced to: 16 units BID and to update him next week with blood sugars results.
[2022-09-21 15:00] VITALS: TEMP 37.1; O2SAT 97
[2022-09-21] MEDS: MONTELUKAST 10 MG TABLET PO (20:09)
[2022-09-21] MEDS: PRAVASTATIN 80 MG TABLET 1 EACH PO (20:21)
[2022-09-21 23:00] VITALS: TEMP 36.6; O2SAT 95
[2022-09-22 07:00] VITALS: TEMP 36.7; O2SAT 97
[2022-09-22] MEDS: FLUTICASONE PROPIONATE NASAL 1 SPRAY NOSTRIL-B ×2 (07:49→16:39)
[2022-09-22] MEDS: ACETAMINOPHEN 500 MG TABLET 1000 MG PO ×3 (07:49→20:07)
[2022-09-22] MEDS: guaiFENesin 600 MG TAB.ER.12H 1200 MG PO ×2 (07:49→16:40)
[2022-09-22] MEDS: HYDROXYUREA 500 MG CAPSULE PO (07:49)
[2022-09-22] MEDS: ASPIRIN 81 MG TABLET EC PO (07:49)
[2022-09-22] MEDS: SENNOSIDES 1 TAB TABLET 2 TAB PO ×2 (07:50→16:40)
[2022-09-22] MEDS: CETIRIZINE HCL 10 MG TABLET PO (07:50)
[2022-09-22] MEDS: FLUTICASONE/SALMETEROL 500/50 INHALER 1 EACH INH ×2 (07:50→16:40)
[2022-09-22 15:00] VITALS: TEMP 36.9; O2SAT 99
[2022-09-22] MEDS: PRAVASTATIN 80 MG TABLET 1 EACH PO (20:07)
[2022-09-22] MEDS: MONTELUKAST 10 MG TABLET PO (20:07)
--- NOTE | 2022-09-22 21:50 | PC.NURSE ---
Blood sugar: 20:00 BG = 69. Interventions including 4 oz O.J., 1 carton chocolate milk, Whole wheat cheese sandwich given. 21:00 follow up: Resident BG = 162
[2022-09-22 23:00] VITALS: TEMP 36.8; O2SAT 96
[2022-09-23] MEDS: guaiFENesin 600 MG TAB.ER.12H 1200 MG PO ×2 (07:30→17:00)
[2022-09-23] MEDS: SENNOSIDES 1 TAB TABLET 2 TAB PO ×2 (07:30→17:00)
[2022-09-23] MEDS: FLUTICASONE/SALMETEROL 500/50 INHALER 1 EACH INH ×2 (07:30→17:00)
[2022-09-23] MEDS: FLUTICASONE PROPIONATE NASAL 1 SPRAY NOSTRIL-B ×2 (07:30→17:00)
[2022-09-23] MEDS: HYDROXYUREA 500 MG CAPSULE PO (07:30)
[2022-09-23] MEDS: ASPIRIN 81 MG TABLET EC PO (07:30)
[2022-09-23] MEDS: ACETAMINOPHEN 500 MG TABLET 1000 MG PO ×3 (07:30→19:54)
[2022-09-23] MEDS: CETIRIZINE HCL 10 MG TABLET PO (07:31)
[2022-09-23 09:54] VITALS: BP 100/60; PULSE 65; RESP 18; TEMP 36.4; O2SAT 96; BMI 21.2
--- NOTE | 2022-09-23 10:22 | PC.NURSE ---
Wound care: Noted resident had a skin tear measuring 2 X1 cm on his left wrist. Intervention was added to clean with wound cleanser and cover with bandaid till heal.
--- NOTE | 2022-09-23 12:24 | PC.NURSE ---
ISRA: Resident went out with family at 12noon for Easter lunch and will be back at 1700 hours.
[2022-09-23 15:00] VITALS: TEMP 36.6; O2SAT 97
[2022-09-23] MEDS: PRAVASTATIN 80 MG TABLET 1 EACH PO (19:54)
[2022-09-23] MEDS: MONTELUKAST 10 MG TABLET PO (19:54)
--- NOTE | 2022-09-23 21:59 | PC.NURSE ---
Resident returned from outing with family @ [phone].
--- NOTE | 2022-09-23 22:07 | PC.NURSE ---
Skin Tear: Resident has skin tear on (R) wrist. States he bumped his walker when up to use the bathroom overnight. Cleansed, observed, and band-aid in place. Will monitor.
[2022-09-23 23:00] VITALS: TEMP 36.7; O2SAT 95
[2022-09-24 07:00] VITALS: TEMP 36.8; O2SAT 96
[2022-09-24] MEDS: ACETAMINOPHEN 500 MG TABLET 1000 MG PO ×3 (07:38→19:32)
[2022-09-24] MEDS: ASPIRIN 81 MG TABLET EC PO (07:38)
[2022-09-24] MEDS: FLUTICASONE PROPIONATE NASAL 1 SPRAY NOSTRIL-B ×2 (07:39→15:14)
[2022-09-24] MEDS: HYDROXYUREA 500 MG CAPSULE PO (07:39)
[2022-09-24] MEDS: SENNOSIDES 1 TAB TABLET 2 TAB PO ×2 (07:39→15:14)
[2022-09-24] MEDS: FLUTICASONE/SALMETEROL 500/50 INHALER 1 EACH INH ×2 (07:39→15:14)
[2022-09-24] MEDS: CETIRIZINE HCL 10 MG TABLET PO (07:39)
[2022-09-24] MEDS: guaiFENesin 600 MG TAB.ER.12H 1200 MG PO ×2 (07:39→15:14)
--- NOTE | 2022-09-24 08:20 | PC.NURSE ---
Status: Called triage Nurse to update of 0740 BS-544 and accu checks from 09/20-09/23. Current orders for all Insulins reported as well. Resident is asymptomatic. VS: BP-120/70 P-74 RR-16 T-98.3 Sats -96% RA. Waiting for orders.
--- NOTE | 2022-09-24 10:00 | PC.NURSE ---
Orders: If sliding scale has not been administered, please administer 15 units. Encourage water and recheck BS at lunch time by Sandy MILLS. And she will review BS tomorrow.
--- NOTE | 2022-09-24 10:00 | PC.NURSE ---
Discussed how skin tear to right wrist appeared. Resident stated that on Saturday09/21/22 at around 11pm he hit is wrist on the hand rail in the bathroom. Night nurse assessed at that time. At this time no tx needed. Area left open to air and no s/s infection, no pain.
--- NOTE | 2022-09-24 12:47 | PC.NURSE ---
COVID OUTBREAK TESTING Resident gave verbal consent for outbreak COVID testing. Resident is currently asymptomatic.? Resident/family will be notified only if resident is positive.
--- NOTE | 2022-09-24 13:39 | PC.NURSE ---
Blood Sugar recheck at 3684- 014. Still waiting for POOL CLEANER's reply.
[2022-09-24 14:38] LABS: SARS PCR* Negative SARS-CoV-2 (Negative)
[2022-09-24 15:00] VITALS: TEMP 37.1; O2SAT 97
[2022-09-24] MEDS: MONTELUKAST 10 MG TABLET PO (19:32)
[2022-09-24] MEDS: PRAVASTATIN 80 MG TABLET 1 EACH PO (19:32)
[2022-09-24 23:00] VITALS: TEMP 37; O2SAT 94
--- NOTE | 2022-09-25 05:01 | PC.NURSE ---
Resident had large emesis at approximately 0115. Stated that he felt nauseous for some time and once it came up he felt fine with no further nausea. Denied any other symptoms of illness. Afebrile at 98.6. Blood glucose level obtained at that time with reading of 79. Resident had a protein/carbohydrate snack of yogurt for blood glucose maintenance through the night. Has had no further emesis or complaints for the remainder of this shift.
[2022-09-25] MEDS: FLUTICASONE PROPIONATE NASAL 1 SPRAY NOSTRIL-B ×2 (07:50→15:22)
[2022-09-25] MEDS: HYDROXYUREA 500 MG CAPSULE PO (07:50)
[2022-09-25] MEDS: ACETAMINOPHEN 500 MG TABLET 1000 MG PO ×3 (07:50→19:55)
[2022-09-25] MEDS: ASPIRIN 81 MG TABLET EC PO (07:50)
[2022-09-25] MEDS: guaiFENesin 600 MG TAB.ER.12H 1200 MG PO ×2 (07:50→15:22)
[2022-09-25] MEDS: FLUTICASONE/SALMETEROL 500/50 INHALER 1 EACH INH ×2 (07:51→15:22)
[2022-09-25] MEDS: CETIRIZINE HCL 10 MG TABLET PO (07:52)
[2022-09-25] MEDS: SENNOSIDES 1 TAB TABLET 2 TAB PO ×2 (07:52→15:22)
[2022-09-25 10:40] VITALS: TEMP 36.6; O2SAT 96
--- NOTE | 2022-09-25 14:59 | PC.SOCIAL ---
Resident's care conference was held today. Resident, his brother and sister attended. Resident's blood sugars continue to be all over the place and resident and family do not want resident to discharge home until resident sees an rfp writer and blood sugars are more stable. Resident's mood remains stable. Resident was encouraged no that the weather is nice to get out more with family and be outside. Family is very supportive and visits daily.
[2022-09-25 15:59] VITALS: TEMP 36.8; O2SAT 100
--- NOTE | 2022-09-25 16:00 | PC.NURSE ---
CARE CONFERENCE:?Nursing, SW, and dietary present. Resident present, sister and brother present. Nursing reviewed current care needs; resident has recently discharged from therapy. He is now independent with ADLS and ambulation. POLST reviewed, Full Code at this time. Health care paperwork given to web content & social media manager and placed in chart. Resident denies pain. Discussed endocrine follow up-resident stated he may stay longer after appointment until him and his family feel his blood sugars are more stable. Dietary discussed meal and snack options. Blisters to heals are healed. Has small skin tear to right wrist from bumping it later last week. Area left open to air. No s/s infection. SW reviewed mood assessment, no concerns. Weight has been stable since admission and resident is eating well, no concerns. Uses no restraints. Sister and brother involved in decision making as needed. Is not able to self-administer meds, administered by nurse. No falls since admission. Resident is considered a vulnerable adult due to need for assistance with ADLs and med management. No plans for recent discharge at this time. May discharge in next 2-6 months.
[2022-09-25] MEDS: PRAVASTATIN 80 MG TABLET 1 EACH PO (19:55)
[2022-09-25] MEDS: MONTELUKAST 10 MG TABLET PO (19:56)
[2022-09-25 23:00] VITALS: TEMP 37.2; O2SAT 95
[2022-09-26 07:00] VITALS: TEMP 36.8; O2SAT 96
[2022-09-26] MEDS: ACETAMINOPHEN 500 MG TABLET 1000 MG PO ×3 (07:53→19:21)
[2022-09-26] MEDS: ASPIRIN 81 MG TABLET EC PO (07:53)
[2022-09-26] MEDS: FLUTICASONE PROPIONATE NASAL 1 SPRAY NOSTRIL-B ×2 (07:53→15:21)
[2022-09-26] MEDS: HYDROXYUREA 500 MG CAPSULE PO (07:54)
[2022-09-26] MEDS: CETIRIZINE HCL 10 MG TABLET PO (07:54)
[2022-09-26] MEDS: FLUTICASONE/SALMETEROL 500/50 INHALER 1 EACH INH ×2 (07:54→15:21)
[2022-09-26] MEDS: SENNOSIDES 1 TAB TABLET 2 TAB PO ×2 (07:54→15:21)
[2022-09-26] MEDS: guaiFENesin 600 MG TAB.ER.12H 1200 MG PO ×2 (07:54→15:21)
--- NOTE | 2022-09-26 13:38 | PC.PHA1 ---
CABLE BRAIDER PHARMACIST'S MEDICATION REVIEW: MEDICATION MONITORING:No psychotropic medication to monitor. IRREGULARITY OR COMMENTS:Patient admitted 08/14/22 for rehab. Blood sugar fluctuations have been center of attention most recently. Scheduled basal bolus insulins currently ordered with additional mealtime sliding scale order. Blood pressure medications prior to admission have been stopped due to hypotension. Patient is getting around better and is aware of his fluctuating blood sugars. SUGGESTED COURSE OF ACTION TAKEN: No recommendations this review.
--- NOTE | 2022-09-26 14:21 | PC.NURSE ---
MDS Clarification: ADLS - upon reviewing [facility] ADL charting, suspected errors were found and those staff were interviewed. Based on the information it was determined that resident was: Independent with bed mobility, transfers, ambulation in room, eating w/set up assist, toileting w/set up assist, personal hygiene w/set up assist. Limited assistance with ambulation in the hallway, dressing. Locomotion did not occur any day, resident does not have or use a wheelchair. All items were coded as such.
[2022-09-26 15:00] VITALS: TEMP 37.2; O2SAT 98
--- NOTE | 2022-09-26 18:31 | PC.NURSE ---
Resident 1700 blood glucose result is 60 snack given and blood glucose recheck and is 45, schedule 1700 novolog insulin held 240 cc OJ given and Resident up to the dinning room for supper, blood glucose recheck at HS and is 220 schedule levemir insulin given
[2022-09-26] MEDS: MONTELUKAST 10 MG TABLET PO (19:21)
[2022-09-26] MEDS: PRAVASTATIN 80 MG TABLET 1 EACH PO (19:22)
[2022-09-26 23:00] VITALS: TEMP 36.7; O2SAT 96
--- NOTE | 2022-09-27 02:59 | PC.NURSE ---
WEEKLY CHARTING - WEEK 2: Vital signs reviewed - no concerns. Temporary and comprehensive care plan reviewed - no change. Independent with transfers, ambulation, and bed mobility. Will call for assistance as needed. Uses walker for ambulation. Bilateral 1/4 side rails up at all times to promote independence with bed mobility. Does not use w/c at this time. At low risk for falls per last fall risk assessment. Fall interventions: call light in reach, bed in low position with brakes locked, non-skid footwear/gripper socks, area free of clutter .
[2022-09-27] MEDS: ASPIRIN 81 MG TABLET EC PO (08:02)
[2022-09-27] MEDS: ACETAMINOPHEN 500 MG TABLET 1000 MG PO ×3 (08:02→19:44)
[2022-09-27] MEDS: HYDROXYUREA 500 MG CAPSULE PO (08:02)
[2022-09-27] MEDS: guaiFENesin 600 MG TAB.ER.12H 1200 MG PO ×2 (08:02→15:59)
[2022-09-27] MEDS: FLUTICASONE PROPIONATE NASAL 1 SPRAY NOSTRIL-B ×2 (08:02→16:00)
[2022-09-27] MEDS: FLUTICASONE/SALMETEROL 500/50 INHALER 1 EACH INH ×2 (08:03→16:01)
[2022-09-27] MEDS: CETIRIZINE HCL 10 MG TABLET PO (08:04)
[2022-09-27] MEDS: SENNOSIDES 1 TAB TABLET 2 TAB PO ×2 (08:04→16:00)
[2022-09-27 10:25] VITALS: TEMP 36.4; O2SAT 98
[2022-09-27 15:00] VITALS: TEMP 37; O2SAT 96
[2022-09-27] MEDS: MONTELUKAST 10 MG TABLET PO (19:44)
[2022-09-27] MEDS: PRAVASTATIN 80 MG TABLET 1 EACH PO (19:44)
[2022-09-27 23:00] VITALS: TEMP 37.1; O2SAT 93
[2022-09-28] MEDS: FLUTICASONE PROPIONATE NASAL 1 SPRAY NOSTRIL-B ×2 (07:42→15:15)
[2022-09-28] MEDS: HYDROXYUREA 500 MG CAPSULE PO (07:42)
[2022-09-28] MEDS: ASPIRIN 81 MG TABLET EC PO (07:42)
[2022-09-28] MEDS: ACETAMINOPHEN 500 MG TABLET 1000 MG PO ×3 (07:42→20:00)
[2022-09-28] MEDS: guaiFENesin 600 MG TAB.ER.12H 1200 MG PO ×2 (07:42→15:15)
[2022-09-28] MEDS: FLUTICASONE/SALMETEROL 500/50 INHALER 1 EACH INH ×2 (07:43→15:15)
[2022-09-28] MEDS: CETIRIZINE HCL 10 MG TABLET PO (07:44)
[2022-09-28] MEDS: SENNOSIDES 1 TAB TABLET 2 TAB PO ×2 (07:44→15:15)
[2022-09-28 10:48] VITALS: TEMP 36.8; O2SAT 98
[2022-09-28 15:00] VITALS: TEMP 37; O2SAT 96
[2022-09-28] MEDS: MONTELUKAST 10 MG TABLET PO (20:00)
[2022-09-28] MEDS: PRAVASTATIN 80 MG TABLET 1 EACH PO (20:00)
[2022-09-29 00:14] VITALS: TEMP 36.6; O2SAT 97
[2022-09-29 07:00] VITALS: TEMP 36.6; O2SAT 94
[2022-09-29] MEDS: ACETAMINOPHEN 500 MG TABLET 1000 MG PO ×3 (08:07→19:27)
[2022-09-29] MEDS: ASPIRIN 81 MG TABLET EC PO (08:07)
[2022-09-29] MEDS: FLUTICASONE PROPIONATE NASAL 1 SPRAY NOSTRIL-B ×2 (08:07→15:58)
[2022-09-29] MEDS: guaiFENesin 600 MG TAB.ER.12H 1200 MG PO ×2 (08:07→15:58)
[2022-09-29] MEDS: HYDROXYUREA 500 MG CAPSULE PO (08:07)
[2022-09-29] MEDS: FLUTICASONE/SALMETEROL 500/50 INHALER 1 EACH INH ×2 (08:07→15:58)
[2022-09-29] MEDS: SENNOSIDES 1 TAB TABLET 2 TAB PO ×2 (08:08→15:59)
[2022-09-29] MEDS: CETIRIZINE HCL 10 MG TABLET PO (08:08)
[2022-09-29 15:00] VITALS: TEMP 36.4; O2SAT 98
[2022-09-29] MEDS: MONTELUKAST 10 MG TABLET PO (19:28)
[2022-09-29] MEDS: PRAVASTATIN 80 MG TABLET 1 EACH PO (19:28)
--- NOTE | 2022-09-29 21:30 | PC.NURSE ---
Low Blood Sugar: 19:20-Resident BG was 67. Snack of Juice, Cheese [place], Lopez Crackers, Peanut butter given. Resident asymptomatic. 20:30-Resident BG = 99. Insulin administered. Snacks of Grape Juice, Cheese [place], String Cheese provided. Resident Asymptomatic
[2022-09-29 23:55] VITALS: TEMP 36.7; O2SAT 97
--- NOTE | 2022-09-30 01:23 | PC.NURSE ---
Blood Glucose is 101 at 01:00, offered 1/2 of turkey sandwich a cup of orange juice.
[2022-09-30] MEDS: ASPIRIN 81 MG TABLET EC PO (07:08)
[2022-09-30] MEDS: HYDROXYUREA 500 MG CAPSULE PO (07:08)
[2022-09-30] MEDS: guaiFENesin 600 MG TAB.ER.12H 1200 MG PO ×2 (07:08→15:30)
[2022-09-30] MEDS: ACETAMINOPHEN 500 MG TABLET 1000 MG PO ×3 (07:08→19:43)
[2022-09-30] MEDS: FLUTICASONE PROPIONATE NASAL 1 SPRAY NOSTRIL-B ×2 (07:08→15:29)
[2022-09-30] MEDS: CETIRIZINE HCL 10 MG TABLET PO (07:09)
[2022-09-30] MEDS: FLUTICASONE/SALMETEROL 500/50 INHALER 1 EACH INH ×2 (07:09→15:30)
[2022-09-30] MEDS: SENNOSIDES 1 TAB TABLET 2 TAB PO ×2 (07:09→15:30)
[2022-09-30 10:47] VITALS: BP 139/84; PULSE 69; RESP 18; TEMP 36.8; O2SAT 69; O2SAT 97; BMI 20.9
[2022-09-30 13:01] VITALS: BMI 21.5
[2022-09-30 15:00] VITALS: TEMP 37; O2SAT 99
[2022-09-30] MEDS: MONTELUKAST 10 MG TABLET PO (19:43)
[2022-09-30] MEDS: PRAVASTATIN 80 MG TABLET 1 EACH PO (19:43)
[2022-09-30 23:53] VITALS: TEMP 36.8; O2SAT 98
[2022-10-01] MEDS: HYDROXYUREA 500 MG CAPSULE PO (07:15)
[2022-10-01] MEDS: guaiFENesin 600 MG TAB.ER.12H 1200 MG PO ×2 (07:15→15:58)
[2022-10-01] MEDS: ASPIRIN 81 MG TABLET EC PO (07:15)
[2022-10-01] MEDS: FLUTICASONE PROPIONATE NASAL 1 SPRAY NOSTRIL-B ×2 (07:15→15:58)
[2022-10-01] MEDS: FLUTICASONE/SALMETEROL 500/50 INHALER 1 EACH INH ×2 (07:15→15:58)
[2022-10-01] MEDS: ACETAMINOPHEN 500 MG TABLET 1000 MG PO ×3 (07:15→19:52)
[2022-10-01] MEDS: CETIRIZINE HCL 10 MG TABLET PO (07:16)
[2022-10-01] MEDS: SENNOSIDES 1 TAB TABLET 2 TAB PO ×2 (07:16→15:59)
[2022-10-01 10:43] VITALS: TEMP 36.8; O2SAT 98
--- NOTE | 2022-10-01 11:57 | PC.NURSE ---
COVID OUTBREAK TESTING Resident gave verbal consent for outbreak COVID testing. Resident is currently asymptomatic.? Resident/family will be notified only if resident is positive.
[2022-10-01 13:18] LABS: SARS PCR* Negative SARS-CoV-2 (Negative)
[2022-10-01 15:12] VITALS: TEMP 36.6; O2SAT 96
[2022-10-01] MEDS: MONTELUKAST 10 MG TABLET PO (19:52)
[2022-10-01] MEDS: PRAVASTATIN 80 MG TABLET 1 EACH PO (19:52)
[2022-10-01 23:00] VITALS: TEMP 36.7; O2SAT 100
[2022-10-02 07:00] VITALS: TEMP 36.9; O2SAT 98
[2022-10-02] MEDS: ACETAMINOPHEN 500 MG TABLET 1000 MG PO ×3 (07:39→20:14)
[2022-10-02] MEDS: ASPIRIN 81 MG TABLET EC PO (07:39)
[2022-10-02] MEDS: FLUTICASONE PROPIONATE NASAL 1 SPRAY NOSTRIL-B ×2 (07:39→15:07)
[2022-10-02] MEDS: HYDROXYUREA 500 MG CAPSULE PO (07:40)
[2022-10-02] MEDS: guaiFENesin 600 MG TAB.ER.12H 1200 MG PO ×2 (07:40→15:08)
[2022-10-02] MEDS: FLUTICASONE/SALMETEROL 500/50 INHALER 1 EACH INH ×2 (07:40→15:07)
[2022-10-02] MEDS: CETIRIZINE HCL 10 MG TABLET PO (07:40)
[2022-10-02] MEDS: SENNOSIDES 1 TAB TABLET 2 TAB PO ×2 (07:40→15:08)
--- NOTE | 2022-10-02 12:07 | PC.NURSE ---
Recert visit : Resident seen by LINA Delgado. Orders reviewed and renewed of 75days with no changes
--- NOTE | 2022-10-02 12:37 | PC.NURSE ---
Recert Visit : Seen by N/P Sandy , orders reviewed and renewed of 45 with no changes
[2022-10-02 15:00] VITALS: TEMP 37.1; O2SAT 98
[2022-10-02] MEDS: MONTELUKAST 10 MG TABLET PO (20:14)
[2022-10-02] MEDS: PRAVASTATIN 80 MG TABLET 1 EACH PO (20:15)
[2022-10-02 23:00] VITALS: TEMP 36.7; O2SAT 97
[2022-10-03] MEDS: ASPIRIN 81 MG TABLET EC PO (07:34)
[2022-10-03] MEDS: FLUTICASONE/SALMETEROL 500/50 INHALER 1 EACH INH ×2 (07:34→15:07)
[2022-10-03] MEDS: HYDROXYUREA 500 MG CAPSULE PO (07:34)
[2022-10-03] MEDS: FLUTICASONE PROPIONATE NASAL 1 SPRAY NOSTRIL-B ×2 (07:34→15:07)
[2022-10-03] MEDS: ACETAMINOPHEN 500 MG TABLET 1000 MG PO ×3 (07:34→19:14)
[2022-10-03] MEDS: guaiFENesin 600 MG TAB.ER.12H 1200 MG PO ×2 (07:34→15:07)
[2022-10-03] MEDS: SENNOSIDES 1 TAB TABLET 2 TAB PO ×2 (07:35→15:07)
[2022-10-03] MEDS: CETIRIZINE HCL 10 MG TABLET PO (07:35)
[2022-10-03] MEDS: PRAVASTATIN 80 MG TABLET 1 EACH PO (19:14)
[2022-10-03] MEDS: MONTELUKAST 10 MG TABLET PO (19:14)
--- NOTE | 2022-10-03 23:58 | PC.NURSE ---
WEEKLY CHARTING WEEK3 Vital signs reviewed. No concerns Comprehensive care plan and temporary care plan reviewed. No changes made. Toileting: Res occasionally incontinent of bladder, Wear incontinent brief daily. Continent of bowel. Able to use call light for help to use the bathroom. Kim care, clothing is manage by staff. Skin: R heel is dry and crack. Heel protector on when on bed. Skin check during bath days and during cares.
[2022-10-04] MEDS: ASPIRIN 81 MG TABLET EC PO (07:26)
[2022-10-04] MEDS: ACETAMINOPHEN 500 MG TABLET 1000 MG PO ×3 (07:26→19:29)
[2022-10-04] MEDS: HYDROXYUREA 500 MG CAPSULE PO (07:27)
[2022-10-04] MEDS: FLUTICASONE/SALMETEROL 500/50 INHALER 1 EACH INH ×2 (07:27→15:42)
[2022-10-04] MEDS: FLUTICASONE PROPIONATE NASAL 1 SPRAY NOSTRIL-B ×2 (07:27→15:41)
[2022-10-04] MEDS: guaiFENesin 600 MG TAB.ER.12H 1200 MG PO ×2 (07:27→15:42)
[2022-10-04] MEDS: SENNOSIDES 1 TAB TABLET 2 TAB PO ×2 (07:28→15:42)
[2022-10-04] MEDS: CETIRIZINE HCL 10 MG TABLET PO (07:28)
--- NOTE | 2022-10-04 10:07 | PC.NURSE ---
Weekly Week #3: Vital signs reviewed with no issues Temporary care plan reviewed with no changes Comprehensive care plan reviewed with no changes Resident is continent of both bowel and bladder Resident is I with all ADL's at this time except does need help with heel boots at HS
--- NOTE | 2022-10-04 13:02 | PC.NURSE ---
Recert Visit: Resident seen by N/P Sandy. Orders reviewed and renewed for 75 day with no changes.
--- NOTE | 2022-10-04 13:05 | PC.NURSE ---
Seen by N/P Sandy : Discontinue Nebulizer Iprat-Albut Q2H PRN and Bisacodyl 10mg daily PRN
[2022-10-04] MEDS: PRAVASTATIN 80 MG TABLET 1 EACH PO (19:29)
[2022-10-04] MEDS: MONTELUKAST 10 MG TABLET PO (19:29)
[2022-10-05] MEDS: ACETAMINOPHEN 500 MG TABLET 1000 MG PO ×3 (07:17→19:54)
[2022-10-05] MEDS: ASPIRIN 81 MG TABLET EC PO (07:18)
[2022-10-05] MEDS: FLUTICASONE PROPIONATE NASAL 1 SPRAY NOSTRIL-B ×2 (07:18→16:00)
[2022-10-05] MEDS: FLUTICASONE/SALMETEROL 500/50 INHALER 1 EACH INH ×2 (07:19→16:01)
[2022-10-05] MEDS: guaiFENesin 600 MG TAB.ER.12H 1200 MG PO ×2 (07:19→16:01)
[2022-10-05] MEDS: HYDROXYUREA 500 MG CAPSULE PO (07:19)
[2022-10-05] MEDS: CETIRIZINE HCL 10 MG TABLET PO (07:19)
[2022-10-05] MEDS: SENNOSIDES 1 TAB TABLET 2 TAB PO ×2 (07:19→16:11)
[2022-10-05] MEDS: PRAVASTATIN 80 MG TABLET 1 EACH PO (19:54)
[2022-10-05] MEDS: MONTELUKAST 10 MG TABLET PO (19:54)
[2022-10-06] MEDS: guaiFENesin 600 MG TAB.ER.12H 1200 MG PO ×2 (07:18→16:19)
[2022-10-06] MEDS: FLUTICASONE PROPIONATE NASAL 1 SPRAY NOSTRIL-B ×2 (07:18→16:19)
[2022-10-06] MEDS: ASPIRIN 81 MG TABLET EC PO (07:18)
[2022-10-06] MEDS: ACETAMINOPHEN 500 MG TABLET 1000 MG PO ×3 (07:18→20:10)
[2022-10-06] MEDS: HYDROXYUREA 500 MG CAPSULE PO (07:18)
[2022-10-06] MEDS: FLUTICASONE/SALMETEROL 500/50 INHALER 1 EACH INH ×2 (07:19→16:19)
[2022-10-06] MEDS: CETIRIZINE HCL 10 MG TABLET PO (07:19)
[2022-10-06] MEDS: SENNOSIDES 1 TAB TABLET 2 TAB PO ×2 (07:19→16:19)
[2022-10-06] MEDS: MONTELUKAST 10 MG TABLET PO (20:10)
[2022-10-06] MEDS: PRAVASTATIN 80 MG TABLET 1 EACH PO (20:10)
[2022-10-07 07:00] VITALS: BMI 21.8
[2022-10-07] MEDS: ASPIRIN 81 MG TABLET EC PO (07:40)
[2022-10-07] MEDS: ACETAMINOPHEN 500 MG TABLET 1000 MG PO ×3 (07:40→19:52)
[2022-10-07] MEDS: HYDROXYUREA 500 MG CAPSULE PO (07:41)
[2022-10-07] MEDS: guaiFENesin 600 MG TAB.ER.12H 1200 MG PO ×2 (07:41→16:52)
[2022-10-07] MEDS: FLUTICASONE PROPIONATE NASAL 1 SPRAY NOSTRIL-B ×2 (07:41→16:52)
[2022-10-07] MEDS: FLUTICASONE/SALMETEROL 500/50 INHALER 1 EACH INH ×2 (07:42→16:52)
[2022-10-07] MEDS: SENNOSIDES 1 TAB TABLET 2 TAB PO ×2 (07:42→16:52)
[2022-10-07] MEDS: CETIRIZINE HCL 10 MG TABLET PO (07:42)
[2022-10-07 09:35] VITALS: BP 108/62; PULSE 65; RESP 16; TEMP 36.5; O2SAT 99
[2022-10-07] MEDS: MONTELUKAST 10 MG TABLET PO (19:52)
[2022-10-07] MEDS: PRAVASTATIN 80 MG TABLET 1 EACH PO (19:52)
[2022-10-08] MEDS: FLUTICASONE PROPIONATE NASAL 1 SPRAY NOSTRIL-B ×2 (07:03→16:07)
[2022-10-08] MEDS: ACETAMINOPHEN 500 MG TABLET 1000 MG PO ×3 (07:03→20:08)
[2022-10-08] MEDS: HYDROXYUREA 500 MG CAPSULE PO (07:03)
[2022-10-08] MEDS: guaiFENesin 600 MG TAB.ER.12H 1200 MG PO ×2 (07:03→16:07)
[2022-10-08] MEDS: ASPIRIN 81 MG TABLET EC PO (07:03)
[2022-10-08] MEDS: SENNOSIDES 1 TAB TABLET 2 TAB PO ×2 (07:04→16:07)
[2022-10-08] MEDS: CETIRIZINE HCL 10 MG TABLET PO (07:04)
[2022-10-08] MEDS: FLUTICASONE/SALMETEROL 500/50 INHALER 1 EACH INH ×2 (07:04→16:07)
[2022-10-08 07:14] LABS: Basophils Absolute Auto 0.03 K/uL (0.00-0.30); Basophils Percent Auto 0.5 % (0.0-3.0); Eosinophils Absolute Auto 0.32 K/uL (0.00-0.50); Eosinophils Percent Auto 5.3 % (0.0-7.0); Hematocrit 34.8 % (37.0-53.0); Hemoglobin* 11.5 gm/dL (13.5-17.5); Immature Granulocytes Abs Auto 0.01 K/uL (0.00-0.30); Immature Granulocytes Pct Auto 0.2 %; Lymphocytes Percent Auto 45.4 % (20-44); Mean Corpuscular HGB Conc 33 gm/dL (32-36); Mean Corpuscular Hemoglobin 36 pg (26-34); Mean Corpuscular Volume 108 fL (80-100); Monocytes Percent Auto 2.6 % (0.0-11.0); Platelet Count* 258 K/uL (140-440); RDW Coefficient of Variation % 13.4 % (11.5-15.5); Red Blood Count 3.22 m/uL (4.30-5.90); White Blood Count* 6.08 K/uL (4.50-11.00)
[2022-10-08 07:18] LABS: Slide Review Reflex No
[2022-10-08] MEDS: MONTELUKAST 10 MG TABLET PO (20:08)
[2022-10-08] MEDS: PRAVASTATIN 80 MG TABLET 1 EACH PO (20:08)
[2022-10-09] MEDS: guaiFENesin 600 MG TAB.ER.12H 1200 MG PO ×2 (07:21→15:55)
[2022-10-09] MEDS: ASPIRIN 81 MG TABLET EC PO (07:21)
[2022-10-09] MEDS: ACETAMINOPHEN 500 MG TABLET 1000 MG PO ×3 (07:21→19:36)
[2022-10-09] MEDS: FLUTICASONE PROPIONATE NASAL 1 SPRAY NOSTRIL-B ×2 (07:21→15:55)
[2022-10-09] MEDS: HYDROXYUREA 500 MG CAPSULE PO (07:22)
[2022-10-09] MEDS: SENNOSIDES 1 TAB TABLET 2 TAB PO ×2 (07:22→15:56)
[2022-10-09] MEDS: FLUTICASONE/SALMETEROL 500/50 INHALER 1 EACH INH ×2 (07:22→15:56)
[2022-10-09] MEDS: CETIRIZINE HCL 10 MG TABLET PO (07:22)
--- NOTE | 2022-10-09 10:06 | PC.NURSE ---
Eye Appointment: Resident went out with sister ambulatory with a walker. Sister instructed to do blood sugar check (strip, accu check machine, needle, alcohol wipes provided)before lunch and do sliding scale Novolog Insulin in addition to 10 units. Copy for sliding scale coverage provided.
--- NOTE | 2022-10-09 12:57 | PC.NURSE ---
CBC result reviewed by Sandy MILLS. No new order.
--- NOTE | 2022-10-09 15:09 | PC.NURSE ---
Res came back in facility at 14:45 accompanied by Isael Li. Orders for Patient Receiving Intraocular injection on Left eye. Consultation order summary listed. 1). Artificial tears 1 drop to affected eye qid x3 days. 2) Cool compress PRN discomfort to affected eye x 24hrs. 3) Tylenol 650mg PO q4 h PRN x24 hours. 4) If pain increase, vision worsens or increasing discharge or purulent material develops fro the eye after 24hrs, contact our office immediately. These may be sings of a serious intraocular infection in the eye, and immediate treatment may be required.
--- NOTE | 2022-10-09 17:54 | PC.NURSE ---
Blood Sugar machine reading at 17:00 was HIGH. Res has no symptoms of Hyperglycemia. Novolog 12 units of sliding scale administered in addition of Novolog 12 units scheduled given right away. Blood sugar reading at 17:[address] to [facility]. Spoke with Kadeem Valdovinos, teacher physically impaired provider advised to check blood sugar again at 20:00 and call provider if BG >450.
--- NOTE | 2022-10-09 18:02 | PC.NURSE ---
Artificial tears 1.4% is not covered insurance, Placed call to Joyce Villa. She gave a verbal authorization to bill Res out of pocket. Medicaid Non covered medication form fax back to pharmacy.
[2022-10-09] MEDS: PRAVASTATIN 80 MG TABLET 1 EACH PO (19:36)
[2022-10-09] MEDS: MONTELUKAST 10 MG TABLET PO (19:36)
[2022-10-09] MEDS: POLYVINYL ALCOHOL DROPS 1 DROP EYE-LEFT ×2 (19:40→19:41)
--- NOTE | 2022-10-09 22:14 | PC.NURSE ---
Resident blood glucose check at 2200 per PERSONAL LINES INSURANCE AGENT order and is 214, snack and schedule insulin given
[2022-10-10] MEDS: ACETAMINOPHEN 500 MG TABLET 1000 MG PO ×3 (07:20→19:29)
[2022-10-10] MEDS: POLYVINYL ALCOHOL DROPS 1 DROP EYE-LEFT ×4 (07:20→19:29)
[2022-10-10] MEDS: ASPIRIN 81 MG TABLET EC PO (07:20)
[2022-10-10] MEDS: guaiFENesin 600 MG TAB.ER.12H 1200 MG PO ×2 (07:21→15:26)
[2022-10-10] MEDS: FLUTICASONE PROPIONATE NASAL 1 SPRAY NOSTRIL-B ×2 (07:21→15:26)
[2022-10-10] MEDS: HYDROXYUREA 500 MG CAPSULE PO (07:21)
[2022-10-10] MEDS: CETIRIZINE HCL 10 MG TABLET PO (07:22)
[2022-10-10] MEDS: SENNOSIDES 1 TAB TABLET 2 TAB PO ×2 (07:22→15:26)
[2022-10-10] MEDS: FLUTICASONE/SALMETEROL 500/50 INHALER 1 EACH INH ×2 (07:22→15:26)
--- NOTE | 2022-10-10 16:23 | PC.SPIRITC ---
Rossy talked about his childhood along with looking forward to November 02, the day he hopes to go home. Per Rossy he misses the people in his apartment complex. I provided visit for support and connection.
[2022-10-10] MEDS: PRAVASTATIN 80 MG TABLET 1 EACH PO (19:29)
[2022-10-10] MEDS: MONTELUKAST 10 MG TABLET PO (19:29)
--- NOTE | 2022-10-11 01:24 | PC.NURSE ---
WEEKLY CHARTING - WEEK 4: Vital signs reviewed - no concerns. Temporary and comprehensive care plan reviewed - no change. No behavioral concerns documented in the last month. Not currently on any psychotropic medications. Communicates needs without difficulty. Hearing intact. Visual impairment corrected with glasses. Cognition intact with some forgetfulness. All medications administered by licensed nurse. Health condition stable at this time.
[2022-10-11] MEDS: ACETAMINOPHEN 500 MG TABLET 1000 MG PO ×3 (07:25→20:26)
[2022-10-11] MEDS: FLUTICASONE PROPIONATE NASAL 1 SPRAY NOSTRIL-B ×2 (07:26→15:53)
[2022-10-11] MEDS: ASPIRIN 81 MG TABLET EC PO (07:26)
[2022-10-11] MEDS: POLYVINYL ALCOHOL DROPS 1 DROP EYE-LEFT ×4 (07:26→20:26)
[2022-10-11] MEDS: guaiFENesin 600 MG TAB.ER.12H 1200 MG PO ×2 (07:26→15:53)
[2022-10-11] MEDS: FLUTICASONE/SALMETEROL 500/50 INHALER 1 EACH INH ×2 (07:27→15:53)
[2022-10-11] MEDS: HYDROXYUREA 500 MG CAPSULE PO (07:27)
[2022-10-11] MEDS: CETIRIZINE HCL 10 MG TABLET PO (07:43)
[2022-10-11] MEDS: SENNOSIDES 1 TAB TABLET 2 TAB PO ×2 (07:43→15:53)
--- NOTE | 2022-10-11 09:39 | PC.SPIRITC ---
provided visit for support, connection, and to give Rossy a [employer] baseball schedule.
--- NOTE | 2022-10-11 10:35 | PC.NURSE ---
Emesis: Resident had 2 episode of emesis this morning, first was upon getting up from bed ( unwitnessed) and another during breakfast at dining area. Vitals are WNL and resident continued his balance breakfast in his room after feeling much better.
--- NOTE | 2022-10-11 12:06 | PC.NURSE ---
Weekly Charting-Week 4: Comprehensive and temporary care plan reviewed. No changes made, and nothing added to temporary care plan. No changes in communication, hearing, vision, or orientation. He does communicate needs without difficulty. Hearing adequate. Has hx of mild cognitive impairment with some forgetfulness. Vision corrected by glasses. Vital signs, no concerns. Health condition stable. Mood/Behavior: Has no issues. Is pleasant and cooperative. Is on no psychotropic medications.
[2022-10-11] MEDS: PRAVASTATIN 80 MG TABLET 1 EACH PO (20:26)
[2022-10-11] MEDS: MONTELUKAST 10 MG TABLET PO (20:26)
[2022-10-12] MEDS: ACETAMINOPHEN 500 MG TABLET 1000 MG PO ×3 (06:59→19:51)
[2022-10-12] MEDS: guaiFENesin 600 MG TAB.ER.12H 1200 MG PO ×2 (06:59→15:56)
[2022-10-12] MEDS: HYDROXYUREA 500 MG CAPSULE PO (06:59)
[2022-10-12] MEDS: ASPIRIN 81 MG TABLET EC PO (06:59)
[2022-10-12] MEDS: FLUTICASONE PROPIONATE NASAL 1 SPRAY NOSTRIL-B ×2 (06:59→15:56)
[2022-10-12] MEDS: POLYVINYL ALCOHOL DROPS 1 DROP EYE-LEFT ×2 (06:59→11:15)
[2022-10-12] MEDS: FLUTICASONE/SALMETEROL 500/50 INHALER 1 EACH INH ×2 (06:59→15:56)
[2022-10-12] MEDS: CETIRIZINE HCL 10 MG TABLET PO (07:00)
[2022-10-12] MEDS: SENNOSIDES 1 TAB TABLET 2 TAB PO ×2 (07:00→15:56)
--- NOTE | 2022-10-12 11:41 | PC.NURSE ---
Accu-Checks reviewed by Dr. Ruelas with new order. Increase sliding scale TID AC as follows: Accu Check Units Insulin aspart 0-200 0 201 -250 2 251 -300 4 301 -350 6 351 -400 9 401 -450 12 451 -500 15 Greater than 500 18 Update MD with accu checks next week.
[2022-10-12] MEDS: MONTELUKAST 10 MG TABLET PO (19:51)
[2022-10-12] MEDS: PRAVASTATIN 80 MG TABLET 1 EACH PO (19:51)
[2022-10-13] MEDS: FLUTICASONE PROPIONATE NASAL 1 SPRAY NOSTRIL-B ×2 (07:00→16:13)
[2022-10-13] MEDS: ACETAMINOPHEN 500 MG TABLET 1000 MG PO ×3 (07:00→20:01)
[2022-10-13] MEDS: ASPIRIN 81 MG TABLET EC PO (07:00)
[2022-10-13] MEDS: HYDROXYUREA 500 MG CAPSULE PO (07:00)
[2022-10-13] MEDS: guaiFENesin 600 MG TAB.ER.12H 1200 MG PO ×2 (07:00→16:14)
[2022-10-13] MEDS: FLUTICASONE/SALMETEROL 500/50 INHALER 1 EACH INH ×2 (07:05→16:14)
[2022-10-13] MEDS: SENNOSIDES 1 TAB TABLET 2 TAB PO ×2 (07:13→16:14)
[2022-10-13] MEDS: CETIRIZINE HCL 10 MG TABLET PO (07:13)
[2022-10-13] MEDS: MONTELUKAST 10 MG TABLET PO (20:01)
[2022-10-13] MEDS: PRAVASTATIN 80 MG TABLET 1 EACH PO (20:01)
[2022-10-14] MEDS: ASPIRIN 81 MG TABLET EC PO (07:15)
[2022-10-14] MEDS: FLUTICASONE PROPIONATE NASAL 1 SPRAY NOSTRIL-B ×2 (07:15→15:33)
[2022-10-14] MEDS: HYDROXYUREA 500 MG CAPSULE PO (07:15)
[2022-10-14] MEDS: FLUTICASONE/SALMETEROL 500/50 INHALER 1 EACH INH ×2 (07:15→15:33)
[2022-10-14] MEDS: SENNOSIDES 1 TAB TABLET 2 TAB PO ×2 (07:15→15:33)
[2022-10-14] MEDS: CETIRIZINE HCL 10 MG TABLET PO (07:15)
[2022-10-14] MEDS: ACETAMINOPHEN 500 MG TABLET 1000 MG PO ×3 (07:15→20:27)
[2022-10-14] MEDS: guaiFENesin 600 MG TAB.ER.12H 1200 MG PO ×2 (07:15→15:33)
[2022-10-14 09:51] VITALS: BP 131/77; PULSE 90; RESP 18; TEMP 36.3; O2SAT 96; BMI 21.5
[2022-10-14] MEDS: MONTELUKAST 10 MG TABLET PO (20:27)
[2022-10-14] MEDS: PRAVASTATIN 80 MG TABLET 1 EACH PO (20:28)
[2022-10-15] MEDS: FLUTICASONE/SALMETEROL 500/50 INHALER 1 EACH INH ×2 (07:01→15:39)
[2022-10-15] MEDS: ACETAMINOPHEN 500 MG TABLET 1000 MG PO ×3 (07:01→19:36)
[2022-10-15] MEDS: guaiFENesin 600 MG TAB.ER.12H 1200 MG PO ×2 (07:01→15:39)
[2022-10-15] MEDS: ASPIRIN 81 MG TABLET EC PO (07:01)
[2022-10-15] MEDS: SENNOSIDES 1 TAB TABLET 2 TAB PO ×2 (07:01→15:39)
[2022-10-15] MEDS: CETIRIZINE HCL 10 MG TABLET PO (07:01)
[2022-10-15] MEDS: FLUTICASONE PROPIONATE NASAL 1 SPRAY NOSTRIL-B ×2 (07:01→15:39)
[2022-10-15] MEDS: HYDROXYUREA 500 MG CAPSULE PO (07:01)
[2022-10-15] MEDS: MONTELUKAST 10 MG TABLET PO (19:36)
[2022-10-15] MEDS: PRAVASTATIN 80 MG TABLET 1 EACH PO (19:37)
[2022-10-16] MEDS: FLUTICASONE PROPIONATE NASAL 1 SPRAY NOSTRIL-B ×2 (07:27→15:39)
[2022-10-16] MEDS: ACETAMINOPHEN 500 MG TABLET 1000 MG PO ×3 (07:27→20:23)
[2022-10-16] MEDS: ASPIRIN 81 MG TABLET EC PO (07:27)
[2022-10-16] MEDS: SENNOSIDES 1 TAB TABLET 2 TAB PO ×2 (07:28→15:39)
[2022-10-16] MEDS: FLUTICASONE/SALMETEROL 500/50 INHALER 1 EACH INH ×2 (07:28→15:39)
[2022-10-16] MEDS: CETIRIZINE HCL 10 MG TABLET PO (07:28)
[2022-10-16] MEDS: HYDROXYUREA 500 MG CAPSULE PO (07:28)
[2022-10-16] MEDS: guaiFENesin 600 MG TAB.ER.12H 1200 MG PO ×2 (07:28→15:39)
--- NOTE | 2022-10-16 12:44 | PC.NURSE ---
Oxygen: Order discontinued, non usage. Sats has been above 90%since August.
[2022-10-16] MEDS: PRAVASTATIN 80 MG TABLET 1 EACH PO (20:24)
[2022-10-16] MEDS: MONTELUKAST 10 MG TABLET PO (20:24)
[2022-10-17] MEDS: guaiFENesin 600 MG TAB.ER.12H 1200 MG PO ×2 (07:27→16:02)
[2022-10-17] MEDS: ACETAMINOPHEN 500 MG TABLET 1000 MG PO ×3 (07:27→19:40)
[2022-10-17] MEDS: FLUTICASONE PROPIONATE NASAL 1 SPRAY NOSTRIL-B ×2 (07:27→16:02)
[2022-10-17] MEDS: ASPIRIN 81 MG TABLET EC PO (07:27)
[2022-10-17] MEDS: FLUTICASONE/SALMETEROL 500/50 INHALER 1 EACH INH ×2 (07:27→16:03)
[2022-10-17] MEDS: HYDROXYUREA 500 MG CAPSULE PO (07:27)
[2022-10-17] MEDS: CETIRIZINE HCL 10 MG TABLET PO (07:28)
[2022-10-17] MEDS: SENNOSIDES 1 TAB TABLET 2 TAB PO ×2 (07:28→16:03)
[2022-10-17] MEDS: MONTELUKAST 10 MG TABLET PO (19:40)
[2022-10-17] MEDS: PRAVASTATIN 80 MG TABLET 1 EACH PO (19:40)
--- NOTE | 2022-10-18 01:35 | PC.NURSE ---
WEEKLY CHARTING - WEEK 1: Vital signs reviewed with no concerns. Temporary and comprehensive care plan reviewed - no change. Denies any pain when asked. Currently receives acetaminophen 1000mg TID for pain management which is noted effective. Independent with ADLs. Assist of 1 with bathing. Receives a diabetic diet with regular textures and thin liquids. Eats independently after setup. Resident reports he is able to chew most foods. Has difficulty with some items d/t dental status. Denies any difficulty swallowing.
[2022-10-18] MEDS: ACETAMINOPHEN 500 MG TABLET 1000 MG PO ×3 (07:12→20:05)
[2022-10-18] MEDS: CETIRIZINE HCL 10 MG TABLET PO (07:12)
[2022-10-18] MEDS: SENNOSIDES 1 TAB TABLET 2 TAB PO ×2 (07:12→15:55)
[2022-10-18] MEDS: HYDROXYUREA 500 MG CAPSULE PO (07:12)
[2022-10-18] MEDS: FLUTICASONE PROPIONATE NASAL 1 SPRAY NOSTRIL-B ×2 (07:12→15:55)
[2022-10-18] MEDS: FLUTICASONE/SALMETEROL 500/50 INHALER 1 EACH INH ×2 (07:12→15:55)
[2022-10-18] MEDS: ASPIRIN 81 MG TABLET EC PO (07:12)
[2022-10-18] MEDS: guaiFENesin 600 MG TAB.ER.12H 1200 MG PO ×2 (07:12→15:55)
--- NOTE | 2022-10-18 07:21 | PC.NURSE ---
Weekly Charting, Week 1-ADL's: Comprehensive and temporary care plan reviewed. No changes made and nothing added to temporary care plan. Resident is independent with dressing, grooming, oral cares and feeding. Is able to ask for assist as needed. Needs supervision with bathing. Does not have upper teeth/denture, few teeth lower. Feed self after set up. Is on diabetic diet, regular texture, thin liquids. Receives protein supplement @ for blood glucose maintenance. No problems with chewing/swallowing reported. Is able to chew most of the food that is not hard. Vital signs reviewed, no concerns. Pain: Has had no complain. Pain is controlled with Tylenol 1000mg TID. Resident is able to verbalize when in pain.?
--- NOTE | 2022-10-18 10:42 | PC.SPIRITC ---
I provided visit for connection.
[2022-10-18] MEDS: PRAVASTATIN 80 MG TABLET 1 EACH PO (20:05)
[2022-10-18] MEDS: MONTELUKAST 10 MG TABLET PO (20:05)
[2022-10-19] MEDS: ACETAMINOPHEN 500 MG TABLET 1000 MG PO ×3 (07:31→20:06)
[2022-10-19] MEDS: FLUTICASONE PROPIONATE NASAL 1 SPRAY NOSTRIL-B ×2 (07:31→15:39)
[2022-10-19] MEDS: ASPIRIN 81 MG TABLET EC PO (07:31)
[2022-10-19] MEDS: HYDROXYUREA 500 MG CAPSULE PO (07:32)
[2022-10-19] MEDS: guaiFENesin 600 MG TAB.ER.12H 1200 MG PO ×2 (07:32→15:39)
[2022-10-19] MEDS: FLUTICASONE/SALMETEROL 500/50 INHALER 1 EACH INH ×2 (07:32→15:39)
[2022-10-19] MEDS: CETIRIZINE HCL 10 MG TABLET PO (07:33)
[2022-10-19] MEDS: SENNOSIDES 1 TAB TABLET 2 TAB PO ×2 (07:33→15:39)
--- NOTE | 2022-10-19 12:06 | PC.NURSE ---
Accu Checks reviewed by Dr. Ruelas with new order. Update him next week with accu checks. Accu Checks Units Insulin Aspart 0 - 200 0 201 - 250 2 251 - 300 4 301 - 350 6 351 - 400 10 401 - 450 14 451 - 500 18 over 500 22
[2022-10-19] MEDS: MONTELUKAST 10 MG TABLET PO (20:06)
[2022-10-19] MEDS: PRAVASTATIN 80 MG TABLET 1 EACH PO (20:06)
--- NOTE | 2022-10-19 22:04 | PC.NURSE ---
Concerns room tidiness: Resident C/O black ants in his room. House keeping and Maintenance notified.
[2022-10-20] MEDS: FLUTICASONE PROPIONATE NASAL 1 SPRAY NOSTRIL-B ×2 (07:10→15:32)
[2022-10-20] MEDS: ACETAMINOPHEN 500 MG TABLET 1000 MG PO ×3 (07:10→20:23)
[2022-10-20] MEDS: ASPIRIN 81 MG TABLET EC PO (07:10)
[2022-10-20] MEDS: FLUTICASONE/SALMETEROL 500/50 INHALER 1 EACH INH ×2 (07:11→15:32)
[2022-10-20] MEDS: guaiFENesin 600 MG TAB.ER.12H 1200 MG PO ×2 (07:11→15:32)
[2022-10-20] MEDS: HYDROXYUREA 500 MG CAPSULE PO (07:11)
[2022-10-20] MEDS: SENNOSIDES 1 TAB TABLET 2 TAB PO ×2 (07:11→15:32)
[2022-10-20] MEDS: CETIRIZINE HCL 10 MG TABLET PO (07:11)
[2022-10-20] MEDS: MONTELUKAST 10 MG TABLET PO (20:23)
[2022-10-20] MEDS: PRAVASTATIN 80 MG TABLET 1 EACH PO (20:23)
[2022-10-21 06:59] VITALS: BMI 21.8
[2022-10-21] MEDS: ACETAMINOPHEN 500 MG TABLET 1000 MG PO ×3 (07:26→19:27)
[2022-10-21] MEDS: FLUTICASONE PROPIONATE NASAL 1 SPRAY NOSTRIL-B ×2 (07:27→15:43)
[2022-10-21] MEDS: ASPIRIN 81 MG TABLET EC PO (07:27)
[2022-10-21] MEDS: FLUTICASONE/SALMETEROL 500/50 INHALER 1 EACH INH ×2 (07:27→15:44)
[2022-10-21] MEDS: guaiFENesin 600 MG TAB.ER.12H 1200 MG PO ×2 (07:27→15:43)
[2022-10-21] MEDS: HYDROXYUREA 500 MG CAPSULE PO (07:27)
[2022-10-21] MEDS: SENNOSIDES 1 TAB TABLET 2 TAB PO ×2 (07:28→15:44)
[2022-10-21] MEDS: CETIRIZINE HCL 10 MG TABLET PO (07:28)
[2022-10-21 09:41] VITALS: BP 100/61; PULSE 66; RESP 16; TEMP 36.8; O2SAT 97
[2022-10-21] MEDS: MONTELUKAST 10 MG TABLET PO (19:27)
[2022-10-21] MEDS: PRAVASTATIN 80 MG TABLET 1 EACH PO (19:27)
[2022-10-22] MEDS: HYDROXYUREA 500 MG CAPSULE PO (07:09)
[2022-10-22] MEDS: CETIRIZINE HCL 10 MG TABLET PO (07:09)
[2022-10-22] MEDS: guaiFENesin 600 MG TAB.ER.12H 1200 MG PO ×2 (07:09→15:49)
[2022-10-22] MEDS: SENNOSIDES 1 TAB TABLET 2 TAB PO ×2 (07:09→15:49)
[2022-10-22] MEDS: ACETAMINOPHEN 500 MG TABLET 1000 MG PO ×3 (07:09→19:57)
[2022-10-22] MEDS: FLUTICASONE PROPIONATE NASAL 1 SPRAY NOSTRIL-B ×2 (07:09→15:48)
[2022-10-22] MEDS: ASPIRIN 81 MG TABLET EC PO (07:09)
[2022-10-22] MEDS: FLUTICASONE/SALMETEROL 500/50 INHALER 1 EACH INH ×2 (07:09→15:49)
--- NOTE | 2022-10-22 14:38 | NUTR.NU ---
RDN with MD order to assess resident's diet. RDN visited with resident and sister (Joyce) whom reported meals have been going well. He has been trying to choose diet dessert and drinks. He was going to order a hamburger with danish fries and milk for supper tonight. Discussed recommended grams of carbohydrates at meals (3-4, to maintain weight). He has seen a donkey engine firer/fireman multiple times in the past. About 5 years ago, he was monitoring carbohydrates however does not do so anymore. Resident is hoping to eventually be able to discharge home. Resident was receiving Mom's Meals before admit, and ate one of them per day (typically for dinner). Mom's Meals provides carbohydrate amounts (in grams) for each meal on their menu. RDN offered diet education to resident, and he requested RDN to come back tomorrow for diet education. RDN will plan on visiting with resident tomorrow. Resident also requested his HS snack to be given around 10 pm. RDN will change this as well.
[2022-10-22] MEDS: MAGNESIUM HYDROXIDE 30 ML ORAL.SUSP PO (17:12)
[2022-10-22] MEDS: MONTELUKAST 10 MG TABLET PO (19:58)
[2022-10-22] MEDS: PRAVASTATIN 80 MG TABLET 1 EACH PO (19:58)
[2022-10-23] MEDS: ASPIRIN 81 MG TABLET EC PO (07:46)
[2022-10-23] MEDS: FLUTICASONE PROPIONATE NASAL 1 SPRAY NOSTRIL-B ×2 (07:46→16:09)
[2022-10-23] MEDS: ACETAMINOPHEN 500 MG TABLET 1000 MG PO ×3 (07:46→20:12)
[2022-10-23] MEDS: guaiFENesin 600 MG TAB.ER.12H 1200 MG PO ×2 (07:47→16:09)
[2022-10-23] MEDS: FLUTICASONE/SALMETEROL 500/50 INHALER 1 EACH INH ×2 (07:47→16:09)
[2022-10-23] MEDS: HYDROXYUREA 500 MG CAPSULE PO (07:47)
[2022-10-23] MEDS: CETIRIZINE HCL 10 MG TABLET PO (07:49)
[2022-10-23] MEDS: SENNOSIDES 1 TAB TABLET 2 TAB PO ×2 (07:49→16:09)
--- NOTE | 2022-10-23 14:47 | NUTR.NU ---
RDN visited with resident regarding diet education and carbohydrate counting. Discussed basics of carbohydrate counting including sources of carbohydrates, serving sizes, and label reading. Discussed using the plate method for carbohydrate-controlled, balanced meals that include ? plate non-starchy vegetables, ? plate protein, and ~4 servings of carbohydrates per meal (fruit, whole grains, legumes, milk, yogurt) and 1-2 per snack. Handouts provided to support discussion. RDN also discussed with resident Meals on Wheels and how they offer a diabetic diet, compared to Mom's Meals. Resident reported he thinks he can stat carbohydrate counting at home. RDN to follow up as needed.
[2022-10-23] MEDS: MONTELUKAST 10 MG TABLET PO (20:13)
[2022-10-23] MEDS: PRAVASTATIN 80 MG TABLET 1 EACH PO (20:13)
[2022-10-24] MEDS: ACETAMINOPHEN 500 MG TABLET 1000 MG PO ×3 (07:16→20:21)
[2022-10-24] MEDS: ASPIRIN 81 MG TABLET EC PO (07:16)
[2022-10-24] MEDS: guaiFENesin 600 MG TAB.ER.12H 1200 MG PO ×2 (07:17→15:37)
[2022-10-24] MEDS: HYDROXYUREA 500 MG CAPSULE PO (07:17)
[2022-10-24] MEDS: FLUTICASONE/SALMETEROL 500/50 INHALER 1 EACH INH ×2 (07:17→15:37)
[2022-10-24] MEDS: SENNOSIDES 1 TAB TABLET 2 TAB PO ×2 (07:17→15:37)
[2022-10-24] MEDS: FLUTICASONE PROPIONATE NASAL 1 SPRAY NOSTRIL-B ×2 (07:17→15:37)
[2022-10-24] MEDS: CETIRIZINE HCL 10 MG TABLET PO (07:17)
--- NOTE | 2022-10-24 16:16 | PC.SPIRITC ---
Rossy expressed that he looks forward to next week and hope he gets to leave for home. I provided visit for support and connection.
[2022-10-24] MEDS: MONTELUKAST 10 MG TABLET PO (20:22)
[2022-10-24] MEDS: PRAVASTATIN 80 MG TABLET 1 EACH PO (20:22)
--- NOTE | 2022-10-24 21:48 | PC.NURSE ---
Blood Glucose: Resident's blood sugar was checked at 1700 and was 53. [place] juice and orly cracker given. No s/s of hypoglycemia. Blood sugar checked 15 mins later and 94. Scheduled insulin given.
--- NOTE | 2022-10-25 04:13 | PC.NURSE ---
WEEKLY CHARTING WEEK 2 MOBILITY Vitals in normal range, blood glucose checked four times a day, reviewed by house Doctor (10/19), new order for insulin. Temporary and comprehensive care plan , no changes. Mobility : resident is independent with ambulation throughout facility with 4WW,full weight bearing.
--- NOTE | 2022-10-25 07:08 | PC.NURSE ---
Weekly Charting, Week 2 - Mobility: Comprehensive and temporary care plan reviewed. No changes made, & nothing added to temporary care plan. Resident is independent with transfers, ambulation, bed/chair mobility. Ambulates with a walker. Has bilateral side rails up at all times to promote independence with bed mobility. Vital signs reviewed, no concerns. Accu checks reviewed by MD weekly with adjustment to Novolog sliding scale done. Fall: No falls the last month. Remains a low fall risk according to assessment done on 10/19/22. Fall interventions: call light within reach at all times, bed in low position with breaks locked, non skid footwear/gripper socks, area free of clutter.
[2022-10-25] MEDS: FLUTICASONE PROPIONATE NASAL 1 SPRAY NOSTRIL-B ×2 (07:55→16:49)
[2022-10-25] MEDS: ACETAMINOPHEN 500 MG TABLET 1000 MG PO ×3 (07:55→20:05)
[2022-10-25] MEDS: ASPIRIN 81 MG TABLET EC PO (07:55)
[2022-10-25] MEDS: CETIRIZINE HCL 10 MG TABLET PO (07:56)
[2022-10-25] MEDS: HYDROXYUREA 500 MG CAPSULE PO (07:56)
[2022-10-25] MEDS: guaiFENesin 600 MG TAB.ER.12H 1200 MG PO ×2 (07:56→16:49)
[2022-10-25] MEDS: SENNOSIDES 1 TAB TABLET 2 TAB PO ×2 (07:56→16:49)
[2022-10-25] MEDS: FLUTICASONE/SALMETEROL 500/50 INHALER 1 EACH INH ×2 (07:56→16:49)
--- NOTE | 2022-10-25 12:46 | PC.NURSE ---
Appointment: Resident out with sister ambulatory with a walker for his F/U at [facility].
--- NOTE | 2022-10-25 16:41 | PC.NURSE ---
New orders: Resident return from MD appointment at 1635 with the following order, HGB slightly low, PLT normal, CBC,CMP ferritin, IRON 2 months and CBC, CMP 4 months or more
--- NOTE | 2022-10-25 18:13 | PC.NURSE ---
Blood Glucose: Resident 1700 blood glucose result HI, 22units of sliding scale and 12 units schedule insulin given, also increase water given, recheck and remains Hi, diet modify and wardrobe consultant MD Dr Kline called and updated, wants Resident monitor for hyperglycemia symptoms and update PMD tomorrow per order
[2022-10-25] MEDS: MONTELUKAST 10 MG TABLET PO (20:05)
[2022-10-25] MEDS: PRAVASTATIN 80 MG TABLET 1 EACH PO (20:05)
[2022-10-26] MEDS: ACETAMINOPHEN 500 MG TABLET 1000 MG PO ×3 (07:23→19:58)
[2022-10-26] MEDS: FLUTICASONE PROPIONATE NASAL 1 SPRAY NOSTRIL-B ×2 (07:23→15:16)
[2022-10-26] MEDS: guaiFENesin 600 MG TAB.ER.12H 1200 MG PO ×2 (07:23→15:16)
[2022-10-26] MEDS: ASPIRIN 81 MG TABLET EC PO (07:23)
[2022-10-26] MEDS: HYDROXYUREA 500 MG CAPSULE PO (07:23)
[2022-10-26] MEDS: FLUTICASONE/SALMETEROL 500/50 INHALER 1 EACH INH ×2 (07:23→15:16)
[2022-10-26] MEDS: SENNOSIDES 1 TAB TABLET 2 TAB PO ×2 (07:30→15:16)
[2022-10-26] MEDS: CETIRIZINE HCL 10 MG TABLET PO (07:30)
--- NOTE | 2022-10-26 09:54 | PC.NURSE ---
Status: Was noted that blood sugar was 53 this morning, resident stated he was not given a pm snack. No s/s of hypoglycemia. Was given OJ and a meat sandwich and blood sugar rechecked 15 minutes later and was up to 118. updated
--- NOTE | 2022-10-26 12:12 | PC.NURSE ---
Accu Checks reviewed by Dr. Ruelas. No changes in his Insulin regimen. Continue to encourage hydration when numbers are high. Not to hold HS snacks even when numbers are high.
[2022-10-26] MEDS: PRAVASTATIN 80 MG TABLET 1 EACH PO (19:58)
[2022-10-26] MEDS: MONTELUKAST 10 MG TABLET PO (19:58)
[2022-10-27] MEDS: HYDROXYUREA 500 MG CAPSULE PO (07:02)
[2022-10-27] MEDS: ACETAMINOPHEN 500 MG TABLET 1000 MG PO ×3 (07:02→19:52)
[2022-10-27] MEDS: ASPIRIN 81 MG TABLET EC PO (07:02)
[2022-10-27] MEDS: guaiFENesin 600 MG TAB.ER.12H 1200 MG PO ×2 (07:02→15:31)
[2022-10-27] MEDS: FLUTICASONE PROPIONATE NASAL 1 SPRAY NOSTRIL-B ×2 (07:02→15:31)
[2022-10-27] MEDS: FLUTICASONE/SALMETEROL 500/50 INHALER 1 EACH INH ×2 (07:03→15:31)
[2022-10-27] MEDS: SENNOSIDES 1 TAB TABLET 2 TAB PO ×2 (07:03→15:32)
[2022-10-27] MEDS: CETIRIZINE HCL 10 MG TABLET PO (07:04)
[2022-10-27] MEDS: MONTELUKAST 10 MG TABLET PO (19:52)
[2022-10-27] MEDS: PRAVASTATIN 80 MG TABLET 1 EACH PO (19:52)
[2022-10-28] MEDS: FLUTICASONE PROPIONATE NASAL 1 SPRAY NOSTRIL-B ×2 (07:05→15:47)
[2022-10-28] MEDS: ASPIRIN 81 MG TABLET EC PO (07:05)
[2022-10-28] MEDS: ACETAMINOPHEN 500 MG TABLET 1000 MG PO ×3 (07:05→20:34)
[2022-10-28] MEDS: guaiFENesin 600 MG TAB.ER.12H 1200 MG PO ×2 (07:06→15:47)
[2022-10-28] MEDS: CETIRIZINE HCL 10 MG TABLET PO (07:06)
[2022-10-28] MEDS: SENNOSIDES 1 TAB TABLET 2 TAB PO ×2 (07:06→15:47)
[2022-10-28] MEDS: HYDROXYUREA 500 MG CAPSULE PO (07:06)
[2022-10-28] MEDS: FLUTICASONE/SALMETEROL 500/50 INHALER 1 EACH INH ×2 (07:06→15:47)
--- NOTE | 2022-10-28 09:53 | PC.NURSE ---
Status: Resident's blood sugar was noted to be 74 this morning with no s/s of hypoglycemia noted. Was given OJ and 1/2 of a meat sandwich, rechecked blood sugar 15 minutes later and was 121
[2022-10-28 09:57] VITALS: BP 118/62; PULSE 62; RESP 18; TEMP 36.8; O2SAT 97
[2022-10-28] MEDS: MONTELUKAST 10 MG TABLET PO (20:35)
[2022-10-28] MEDS: PRAVASTATIN 80 MG TABLET 1 EACH PO (20:35)
[2022-10-29] MEDS: FLUTICASONE PROPIONATE NASAL 1 SPRAY NOSTRIL-B ×2 (07:04→16:01)
[2022-10-29] MEDS: HYDROXYUREA 500 MG CAPSULE PO (07:04)
[2022-10-29] MEDS: ACETAMINOPHEN 500 MG TABLET 1000 MG PO ×3 (07:04→20:23)
[2022-10-29] MEDS: guaiFENesin 600 MG TAB.ER.12H 1200 MG PO ×2 (07:04→16:08)
[2022-10-29] MEDS: FLUTICASONE/SALMETEROL 500/50 INHALER 1 EACH INH ×2 (07:04→16:10)
[2022-10-29] MEDS: ASPIRIN 81 MG TABLET EC PO (07:04)
[2022-10-29] MEDS: CETIRIZINE HCL 10 MG TABLET PO (07:05)
[2022-10-29] MEDS: SENNOSIDES 1 TAB TABLET 2 TAB PO ×2 (07:05→16:10)
[2022-10-29] MEDS: MONTELUKAST 10 MG TABLET PO (20:23)
[2022-10-29] MEDS: PRAVASTATIN 80 MG TABLET 1 EACH PO (20:24)
[2022-10-30] MEDS: ASPIRIN 81 MG TABLET EC PO (07:02)
[2022-10-30] MEDS: guaiFENesin 600 MG TAB.ER.12H 1200 MG PO ×2 (07:02→16:10)
[2022-10-30] MEDS: FLUTICASONE PROPIONATE NASAL 1 SPRAY NOSTRIL-B ×2 (07:02→16:12)
[2022-10-30] MEDS: ACETAMINOPHEN 500 MG TABLET 1000 MG PO ×3 (07:02→19:57)
[2022-10-30] MEDS: HYDROXYUREA 500 MG CAPSULE PO (07:03)
[2022-10-30] MEDS: FLUTICASONE/SALMETEROL 500/50 INHALER 1 EACH INH ×2 (07:03→16:10)
[2022-10-30] MEDS: SENNOSIDES 1 TAB TABLET 2 TAB PO ×2 (07:03→16:11)
[2022-10-30] MEDS: CETIRIZINE HCL 10 MG TABLET PO (07:03)
--- NOTE | 2022-10-30 11:51 | PC.SPIRITC ---
I provided visit for support and connection.
[2022-10-30] MEDS: MONTELUKAST 10 MG TABLET PO (19:57)
[2022-10-30] MEDS: PRAVASTATIN 80 MG TABLET 1 EACH PO (19:58)
--- NOTE | 2022-10-30 21:00 | PC.NURSE ---
Resident BS was 58 before dinner, was given OJ, cookies and it went up to BS 121 before he received his insulin. Bedtime was BS 141.
[2022-10-31] MEDS: ACETAMINOPHEN 500 MG TABLET 1000 MG PO ×3 (07:13→20:13)
[2022-10-31] MEDS: HYDROXYUREA 500 MG CAPSULE PO (07:13)
[2022-10-31] MEDS: guaiFENesin 600 MG TAB.ER.12H 1200 MG PO ×2 (07:13→15:26)
[2022-10-31] MEDS: ASPIRIN 81 MG TABLET EC PO (07:13)
[2022-10-31] MEDS: FLUTICASONE PROPIONATE NASAL 1 SPRAY NOSTRIL-B ×2 (07:13→15:26)
[2022-10-31] MEDS: FLUTICASONE/SALMETEROL 500/50 INHALER 1 EACH INH ×2 (07:13→15:26)
[2022-10-31] MEDS: SENNOSIDES 1 TAB TABLET 2 TAB PO ×2 (07:14→15:26)
[2022-10-31] MEDS: CETIRIZINE HCL 10 MG TABLET PO (07:14)
[2022-10-31] MEDS: PRAVASTATIN 80 MG TABLET 1 EACH PO (20:13)
[2022-10-31] MEDS: MONTELUKAST 10 MG TABLET PO (20:13)
--- NOTE | 2022-11-01 00:37 | PC.NURSE ---
WEEKLY CHARTING WEEK 3 Vital signs reviewed with no concerns except the uncontrolled blood sugar, MP is aware. Notify MD as needed. Comprehensive care plan and temporary care plan reviewed with changes made. Skin is clear and intact. Skin check done at bath days and during cares. Res is occasionally incontinent of blader. Able to use call light as needed to use toilet. Wears pull up. Limited 1 Staff assist with incontinent pad, clothing and per cares.
--- NOTE | 2022-11-01 07:13 | PC.NURSE ---
Weekly Charting, Week 3 - Toileting: Comprehensive and temporary care plan reviewed. No changes made, nothing added to temporary care plan. Resident is continent of bowel and bladder ( dribbles occasionally). Toilets self. Wears pull ups. Pads, pericares, clothing managed by self. Will ask for assist as needed. Vital signs, no concerns. Blood sugar unstable, noted & monitored by provider. Skin: No issues at this time. Skin is routinely checked on bath days and PRN.
[2022-11-01] MEDS: HYDROXYUREA 500 MG CAPSULE PO (07:25)
[2022-11-01] MEDS: ACETAMINOPHEN 500 MG TABLET 1000 MG PO ×3 (07:25→20:06)
[2022-11-01] MEDS: FLUTICASONE PROPIONATE NASAL 1 SPRAY NOSTRIL-B ×2 (07:25→16:09)
[2022-11-01] MEDS: guaiFENesin 600 MG TAB.ER.12H 1200 MG PO ×2 (07:25→16:10)
[2022-11-01] MEDS: ASPIRIN 81 MG TABLET EC PO (07:25)
[2022-11-01] MEDS: FLUTICASONE/SALMETEROL 500/50 INHALER 1 EACH INH ×2 (07:26→16:10)
[2022-11-01] MEDS: CETIRIZINE HCL 10 MG TABLET PO (07:30)
[2022-11-01] MEDS: SENNOSIDES 1 TAB TABLET 2 TAB PO ×2 (07:30→16:10)
[2022-11-01] MEDS: PRAVASTATIN 80 MG TABLET 1 EACH PO (20:06)
[2022-11-01] MEDS: MONTELUKAST 10 MG TABLET PO (20:06)
[2022-11-02] MEDS: ASPIRIN 81 MG TABLET EC PO (07:49)
[2022-11-02] MEDS: FLUTICASONE PROPIONATE NASAL 1 SPRAY NOSTRIL-B ×2 (07:49→15:58)
[2022-11-02] MEDS: ACETAMINOPHEN 500 MG TABLET 1000 MG PO ×3 (07:49→19:56)
[2022-11-02] MEDS: guaiFENesin 600 MG TAB.ER.12H 1200 MG PO ×2 (07:49→15:58)
[2022-11-02] MEDS: FLUTICASONE/SALMETEROL 500/50 INHALER 1 EACH INH ×2 (07:49→15:58)
[2022-11-02] MEDS: HYDROXYUREA 500 MG CAPSULE PO (07:49)
[2022-11-02] MEDS: SENNOSIDES 1 TAB TABLET 2 TAB PO ×2 (07:51→15:58)
[2022-11-02] MEDS: CETIRIZINE HCL 10 MG TABLET PO (07:51)
--- NOTE | 2022-11-02 14:01 | PC.NURSE ---
BS status : Resident BS at 1100 was high and resident had no hyperglycemia symptoms. The result was noted to Dr Ruelas and he gave instruction to continue with the current insulin schedule and sliding scale and send patient to Endocrinology appt for review. Resident was send for appt at 1130 with lunch packed.
--- NOTE | 2022-11-02 16:04 | PC.NURSE ---
Resident return from MD appointment at 1530 with new insulin orders and did have diabetic monitoring labs done per resident sister, complain of GI upset and did have a medium emesis, vitals are T 98.4 P 68 R 18 BP 171/71 O2 sat 100% on room air alert and oriented per baseline blood glucose check and reads HI, fluids given.
--- NOTE | 2022-11-02 18:15 | PC.NURSE ---
Orders: new insulin orders from MD appointment was to adjust levemir to 20 units in the morning and 12 units in the evening, adjust novolog to 14 units base dose with meals with additional scale.
[2022-11-02] MEDS: MONTELUKAST 10 MG TABLET PO (19:56)
[2022-11-02] MEDS: PRAVASTATIN 80 MG TABLET 1 EACH PO (19:56)
--- NOTE | 2022-11-02 21:38 | PC.NURSE ---
Blood Glucose: Resident blood glucose recheck at 1999 and its 588 fluids given and recheck at 2119 with results of 472, alert oriented per baseline house player updated and will updated conveyor operator PARTNER MANAGEMENT CONSULTANT
--- NOTE | 2022-11-03 02:30 | PC.NURSE ---
Health Resident was BS 494 at midnight.
[2022-11-03] MEDS: ACETAMINOPHEN 500 MG TABLET 1000 MG PO ×3 (07:22→19:39)
[2022-11-03] MEDS: ASPIRIN 81 MG TABLET EC PO (07:22)
[2022-11-03] MEDS: FLUTICASONE PROPIONATE NASAL 1 SPRAY NOSTRIL-B ×2 (07:23→16:01)
[2022-11-03] MEDS: SENNOSIDES 1 TAB TABLET 2 TAB PO ×2 (07:24→16:01)
[2022-11-03] MEDS: FLUTICASONE/SALMETEROL 500/50 INHALER 1 EACH INH ×2 (07:24→16:01)
[2022-11-03] MEDS: guaiFENesin 600 MG TAB.ER.12H 1200 MG PO ×2 (07:24→16:01)
[2022-11-03] MEDS: CETIRIZINE HCL 10 MG TABLET PO (07:24)
[2022-11-03] MEDS: HYDROXYUREA 500 MG CAPSULE PO (07:24)
[2022-11-03] MEDS: MONTELUKAST 10 MG TABLET PO (19:39)
[2022-11-03] MEDS: PRAVASTATIN 80 MG TABLET 1 EACH PO (19:39)
[2022-11-04 07:26] VITALS: BMI 21.8
[2022-11-04] MEDS: ACETAMINOPHEN 500 MG TABLET 1000 MG PO ×3 (07:40→19:56)
[2022-11-04] MEDS: HYDROXYUREA 500 MG CAPSULE PO (07:40)
[2022-11-04] MEDS: ASPIRIN 81 MG TABLET EC PO (07:40)
[2022-11-04] MEDS: guaiFENesin 600 MG TAB.ER.12H 1200 MG PO ×2 (07:40→15:55)
[2022-11-04] MEDS: FLUTICASONE PROPIONATE NASAL 1 SPRAY NOSTRIL-B ×2 (07:40→15:55)
[2022-11-04] MEDS: FLUTICASONE/SALMETEROL 500/50 INHALER 1 EACH INH ×2 (07:41→15:55)
[2022-11-04] MEDS: SENNOSIDES 1 TAB TABLET 2 TAB PO ×2 (07:41→15:56)
[2022-11-04] MEDS: CETIRIZINE HCL 10 MG TABLET PO (07:41)
[2022-11-04 11:43] VITALS: BP 109/63; PULSE 63; RESP 16; TEMP 36.9; O2SAT 98
[2022-11-04] MEDS: MONTELUKAST 10 MG TABLET PO (19:56)
[2022-11-04] MEDS: PRAVASTATIN 80 MG TABLET 1 EACH PO (19:56)
[2022-11-05] MEDS: FLUTICASONE PROPIONATE NASAL 1 SPRAY NOSTRIL-B ×2 (07:38→15:43)
[2022-11-05] MEDS: ACETAMINOPHEN 500 MG TABLET 1000 MG PO ×3 (07:38→20:06)
[2022-11-05] MEDS: ASPIRIN 81 MG TABLET EC PO (07:38)
[2022-11-05] MEDS: guaiFENesin 600 MG TAB.ER.12H 1200 MG PO ×2 (07:38→15:43)
[2022-11-05] MEDS: FLUTICASONE/SALMETEROL 500/50 INHALER 1 EACH INH ×2 (07:39→15:43)
[2022-11-05] MEDS: HYDROXYUREA 500 MG CAPSULE PO (07:39)
[2022-11-05] MEDS: SENNOSIDES 1 TAB TABLET 2 TAB PO ×2 (07:41→15:43)
[2022-11-05] MEDS: CETIRIZINE HCL 10 MG TABLET PO (07:41)
[2022-11-05] MEDS: PRAVASTATIN 80 MG TABLET 1 EACH PO (20:07)
[2022-11-05] MEDS: MONTELUKAST 10 MG TABLET PO (20:07)
[2022-11-06] MEDS: ACETAMINOPHEN 500 MG TABLET 1000 MG PO ×3 (07:40→20:16)
[2022-11-06] MEDS: ASPIRIN 81 MG TABLET EC PO (07:40)
[2022-11-06] MEDS: FLUTICASONE PROPIONATE NASAL 1 SPRAY NOSTRIL-B ×2 (07:41→17:20)
[2022-11-06] MEDS: HYDROXYUREA 500 MG CAPSULE PO (07:41)
[2022-11-06] MEDS: SENNOSIDES 1 TAB TABLET 2 TAB PO ×2 (07:41→17:20)
[2022-11-06] MEDS: FLUTICASONE/SALMETEROL 500/50 INHALER 1 EACH INH ×2 (07:41→17:20)
[2022-11-06] MEDS: guaiFENesin 600 MG TAB.ER.12H 1200 MG PO ×2 (07:41→17:20)
[2022-11-06] MEDS: CETIRIZINE HCL 10 MG TABLET PO (07:41)
--- NOTE | 2022-11-06 14:16 | PC.PHA1 ---
INSTRUCTOR KINDERGARTEN PHARMACIST'S MEDICATION REVIEW: MEDICATION MONITORING:No psychotropic medications prescribed. IRREGULARITY OR COMMENTS:Patient continues to have drastic changes in blood glucose and I see MDs note regarding appointment with Space Systems Operations Superintendent but notes from appointment not scanned into system. As of this review patient has morning highs greater 250 with scheduled and sliding scaled short acting insulin orders and scheduled long acting insulin. SUGGESTED COURSE OF ACTION TAKEN:If blood sugars continue to fluctuate post specialist appointment, phone consult may be needed to make sure all blood sugar flow sheets were available for visit. Please let me know if I can be of any help consulting with endocrinology clinic.
--- NOTE | 2022-11-06 14:24 | PC.SOCIAL ---
Addendum entered by IWONA aRmirez 11/06/22 15:46: Requested an Elderly Waiver Assessment with [facility] online. They have 10 business days to respond. Still waiting to hear from Melissa Birmingham from [facility]. Original Note: Resident after seeing the Endrocronologist has decided he is ready to discharge home. Pt. was getting [facility] for nursing 1x a week and a SIMULATION TECHNICIAN. His worker had been Melissa Birmingham at [phone]. Res. likely has to be re-screened for the EW waiver through [facility] since resident has now been a resident in [facility]. for coverage of home care services. A message was left with Melissa Birmingham inquiring about this. Pt. had Moms meals 5days a week ad would like to try Meals on Wheels instead. Contacted [facility] at [phone] to set up Meals on Wheels and they have room on their route. Pt. would need to start Meals on Wheels before 6/3 or cannot be added until 6/12 for meals 5x a week. Social work to follow up on home care and resident's EW assessment before resident can be discharged to home for home care and meal coverage.
[2022-11-06] MEDS: MONTELUKAST 10 MG TABLET PO (20:16)
[2022-11-06] MEDS: PRAVASTATIN 80 MG TABLET 1 EACH PO (20:16)
[2022-11-07] MEDS: ACETAMINOPHEN 500 MG TABLET 1000 MG PO ×3 (07:33→20:29)
[2022-11-07] MEDS: guaiFENesin 600 MG TAB.ER.12H 1200 MG PO ×2 (07:33→15:39)
[2022-11-07] MEDS: FLUTICASONE PROPIONATE NASAL 1 SPRAY NOSTRIL-B ×2 (07:33→15:39)
[2022-11-07] MEDS: HYDROXYUREA 500 MG CAPSULE PO (07:33)
[2022-11-07] MEDS: ASPIRIN 81 MG TABLET EC PO (07:33)
[2022-11-07] MEDS: FLUTICASONE/SALMETEROL 500/50 INHALER 1 EACH INH ×2 (07:33→15:39)
[2022-11-07] MEDS: SENNOSIDES 1 TAB TABLET 2 TAB PO ×2 (07:34→15:39)
[2022-11-07] MEDS: CETIRIZINE HCL 10 MG TABLET PO (07:34)
[2022-11-07] MEDS: PRAVASTATIN 80 MG TABLET 1 EACH PO (20:30)
[2022-11-07] MEDS: MONTELUKAST 10 MG TABLET PO (20:30)
--- NOTE | 2022-11-07 22:18 | PC.NURSE ---
Before supper blood glucose was 66, snack and juice given, recheck in 15 min was 57. Second snack and juice given and recheck in 15 min was 107. Resident ate well at supper and insulin given.
--- NOTE | 2022-11-08 06:47 | PC.NURSE ---
WEEKLY CHARTING WEEK 4 : COMMUNICATION, HEARING/VISION Beatris signs fine except blood glucose , unstable. Resident will have some very high and very low some days. Insulin was adjusted at his latest appointment with his bee producer. Comprehensive and temporary care plan reviewed. No changes made, and nothing added to temporary care plan. Communication : hearing impaired, difficulty in some environments but do communicate without difficulty. He Has hx of mild cognitive impairment with some forgetfulness. Vision corrected by glasses. Mood/Behavior: Has no issues. Is pleasant and cooperative. Is on no psychotropic medications.
[2022-11-08] MEDS: ASPIRIN 81 MG TABLET EC PO (07:53)
[2022-11-08] MEDS: HYDROXYUREA 500 MG CAPSULE PO (07:53)
[2022-11-08] MEDS: FLUTICASONE PROPIONATE NASAL 1 SPRAY NOSTRIL-B ×2 (07:53→15:59)
[2022-11-08] MEDS: ACETAMINOPHEN 500 MG TABLET 1000 MG PO ×3 (07:53→20:15)
[2022-11-08] MEDS: guaiFENesin 600 MG TAB.ER.12H 1200 MG PO ×2 (07:53→15:59)
[2022-11-08] MEDS: FLUTICASONE/SALMETEROL 500/50 INHALER 1 EACH INH ×2 (07:55→15:59)
[2022-11-08] MEDS: SENNOSIDES 1 TAB TABLET 2 TAB PO ×2 (07:56→15:59)
[2022-11-08] MEDS: CETIRIZINE HCL 10 MG TABLET PO (07:57)
--- NOTE | 2022-11-08 08:52 | PC.SPIRITC ---
I provided visit for connection and support, engaged in conversation about baseball and bird watching, two things Rossy has been enjoying lately.
--- NOTE | 2022-11-08 13:29 | PC.NURSE ---
Weekly Charting-Week 4: Comprehensive and temporary care plan reviewed. No changes made, and nothing added to temporary care plan. No changes in communication, hearing, vision, or orientation. He does communicate needs without difficulty. Hearing adequate. Has hx of mild cognitive impairment with some forgetfulness. Vision corrected by glasses. Blood sugar readings remains unstable. Mostly highs with occasional morning lows. Was seen by the oleo hasher and renderer and made adjustments to Insulin. Other VS fine. Continue weekly VS and accu checks monitoring and refer to provider as needed. Mood/Behavior: No issues documented. Is pleasant and cooperative. Is on no psychotropic medications.
--- NOTE | 2022-11-08 15:26 | PC.SOCIAL ---
Addendum entered by IWONA Ramirez 11/08/22 15:36: Updated resident and sister Joyce that home care cannot start right away and resident's case briefer will call back with a start date. Original Note: Spoke with Shelia at [phone] from [facility] who states they do not have to re-assess res. since it has been less than 180 days and that [facility] can re=open res. to services. Spoke with Melissa Birmingham, [facility] case briefer who will re-open pt. under the AL césar until his MA is approved and he can switch over to EW. She needs to see when [facility] has availability to open res. to home care again. Resident will resume with an RN 1x a week, and a INSPECTOR BOILER 2x a week for bathing and cleaning assistance. Resident will need all new home care orders/Face to Face. Resident can switch over from Mom's meals to Meals om Wheels. [facility] can add resident to their route on 11/26/22. Margot will contact social science instructor once she has a start date from [facility] and they have orders from .
[2022-11-08] MEDS: MONTELUKAST 10 MG TABLET PO (20:15)
[2022-11-08] MEDS: PRAVASTATIN 80 MG TABLET 1 EACH PO (20:16)
[2022-11-09] MEDS: ACETAMINOPHEN 500 MG TABLET 1000 MG PO ×3 (07:39→20:26)
[2022-11-09] MEDS: FLUTICASONE PROPIONATE NASAL 1 SPRAY NOSTRIL-B ×2 (07:39→15:48)
[2022-11-09] MEDS: ASPIRIN 81 MG TABLET EC PO (07:39)
[2022-11-09] MEDS: guaiFENesin 600 MG TAB.ER.12H 1200 MG PO ×2 (07:40→15:49)
[2022-11-09] MEDS: HYDROXYUREA 500 MG CAPSULE PO (07:40)
[2022-11-09] MEDS: FLUTICASONE/SALMETEROL 500/50 INHALER 1 EACH INH ×2 (07:41→15:49)
[2022-11-09] MEDS: CETIRIZINE HCL 10 MG TABLET PO (07:46)
[2022-11-09] MEDS: SENNOSIDES 1 TAB TABLET 2 TAB PO ×2 (07:46→15:50)
--- NOTE | 2022-11-09 10:39 | PC.NURSE ---
Status: Blood sugar this morning noted to be 76. Resident given OJ and 1/2 sandwich and blood sugar rechecked 15 minutes later and was 90.
--- NOTE | 2022-11-09 11:49 | PC.NURSE ---
Order: When current supply of Novolog gone, replace with Humalog Insulin 14 units SQ TID AC and use for sliding scale with current parameters by Dr. Ruelas.
[2022-11-09] MEDS: MONTELUKAST 10 MG TABLET PO (20:26)
[2022-11-09] MEDS: PRAVASTATIN 80 MG TABLET 1 EACH PO (20:27)
--- NOTE | 2022-11-09 21:43 | PC.NURSE ---
Blood Glucose: Blood Glucose @ 20:00 - 82- Snack of Juice, Banana, pudding, cheese stick administered. 21:00-Blood Glucose - 187. Insulin administered.
[2022-11-10] MEDS: FLUTICASONE/SALMETEROL 500/50 INHALER 1 EACH INH ×2 (07:36→16:04)
[2022-11-10] MEDS: HYDROXYUREA 500 MG CAPSULE PO (07:36)
[2022-11-10] MEDS: ACETAMINOPHEN 500 MG TABLET 1000 MG PO ×3 (07:36→20:03)
[2022-11-10] MEDS: ASPIRIN 81 MG TABLET EC PO (07:36)
[2022-11-10] MEDS: FLUTICASONE PROPIONATE NASAL 1 SPRAY NOSTRIL-B ×2 (07:36→16:03)
[2022-11-10] MEDS: guaiFENesin 600 MG TAB.ER.12H 1200 MG PO ×2 (07:36→16:03)
[2022-11-10] MEDS: SENNOSIDES 1 TAB TABLET 2 TAB PO ×2 (07:38→16:04)
[2022-11-10] MEDS: CETIRIZINE HCL 10 MG TABLET PO (07:38)
--- NOTE | 2022-11-10 17:02 | PC.NURSE ---
Blood Glucose 16:00 was 87. Snack of Pudding, Grape Juice, Allen slices, cheese stick given. Blood glucose 17:00 was 123. Insulin administered.
[2022-11-10] MEDS: MONTELUKAST 10 MG TABLET PO (20:04)
[2022-11-10] MEDS: PRAVASTATIN 80 MG TABLET 1 EACH PO (20:04)
--- NOTE | 2022-11-10 21:14 | PC.NURSE ---
Milk of Mag Day 2 no BM: Resident refused Milk of Mag for day 2 of no b.m. Resident reports he has b.m.'s every day, had one today, one yesterday.
[2022-11-11] MEDS: FLUTICASONE PROPIONATE NASAL 1 SPRAY NOSTRIL-B ×2 (07:03→15:27)
[2022-11-11] MEDS: ASPIRIN 81 MG TABLET EC PO (07:03)
[2022-11-11] MEDS: HYDROXYUREA 500 MG CAPSULE PO (07:03)
[2022-11-11] MEDS: ACETAMINOPHEN 500 MG TABLET 1000 MG PO ×3 (07:03→19:57)
[2022-11-11] MEDS: guaiFENesin 600 MG TAB.ER.12H 1200 MG PO ×2 (07:03→15:27)
[2022-11-11] MEDS: FLUTICASONE/SALMETEROL 500/50 INHALER 1 EACH INH ×2 (07:04→15:27)
[2022-11-11] MEDS: SENNOSIDES 1 TAB TABLET 2 TAB PO ×2 (07:05→15:27)
[2022-11-11] MEDS: CETIRIZINE HCL 10 MG TABLET PO (07:05)
[2022-11-11 10:07] VITALS: BP 120/65; PULSE 65; RESP 18; TEMP 36.5; O2SAT 96
[2022-11-11 10:10] VITALS: BMI 21.4
[2022-11-11] MEDS: MONTELUKAST 10 MG TABLET PO (19:57)
[2022-11-11] MEDS: PRAVASTATIN 80 MG TABLET 1 EACH PO (19:58)
--- NOTE | 2022-11-11 21:21 | PC.NURSE ---
Blood Glucose 20:00 was 89. Snack given of Juice, pudding, cheese snack, banana. Blood glucose recheck at 21:00-179. Insulin administered.
[2022-11-12] MEDS: guaiFENesin 600 MG TAB.ER.12H 1200 MG PO ×2 (07:13→15:41)
[2022-11-12] MEDS: ASPIRIN 81 MG TABLET EC PO (07:13)
[2022-11-12] MEDS: HYDROXYUREA 500 MG CAPSULE PO (07:13)
[2022-11-12] MEDS: FLUTICASONE PROPIONATE NASAL 1 SPRAY NOSTRIL-B ×2 (07:13→15:41)
[2022-11-12] MEDS: ACETAMINOPHEN 500 MG TABLET 1000 MG PO ×3 (07:13→19:39)
[2022-11-12] MEDS: SENNOSIDES 1 TAB TABLET 2 TAB PO ×2 (07:14→15:41)
[2022-11-12] MEDS: FLUTICASONE/SALMETEROL 500/50 INHALER 1 EACH INH ×2 (07:14→15:41)
[2022-11-12] MEDS: CETIRIZINE HCL 10 MG TABLET PO (07:14)
[2022-11-12] MEDS: MONTELUKAST 10 MG TABLET PO (19:39)
[2022-11-12] MEDS: PRAVASTATIN 80 MG TABLET 1 EACH PO (19:39)
[2022-11-13] MEDS: guaiFENesin 600 MG TAB.ER.12H 1200 MG PO ×2 (07:38→16:01)
[2022-11-13] MEDS: ACETAMINOPHEN 500 MG TABLET 1000 MG PO ×3 (07:38→20:14)
[2022-11-13] MEDS: FLUTICASONE/SALMETEROL 500/50 INHALER 1 EACH INH ×2 (07:38→16:01)
[2022-11-13] MEDS: FLUTICASONE PROPIONATE NASAL 1 SPRAY NOSTRIL-B ×2 (07:38→16:01)
[2022-11-13] MEDS: HYDROXYUREA 500 MG CAPSULE PO (07:38)
[2022-11-13] MEDS: ASPIRIN 81 MG TABLET EC PO (07:38)
[2022-11-13] MEDS: SENNOSIDES 1 TAB TABLET 2 TAB PO ×2 (07:39→16:01)
[2022-11-13] MEDS: CETIRIZINE HCL 10 MG TABLET PO (07:39)
--- NOTE | 2022-11-13 10:34 | PC.NURSE ---
Seen by COLORIST DYER Gela: Ordered to discontinue Novolog when supply is gone, then begin Humalog Kwik Pen 100/ml at the same dose as current Novolog orders.
[2022-11-13] MEDS: MONTELUKAST 10 MG TABLET PO (20:15)
[2022-11-13] MEDS: PRAVASTATIN 80 MG TABLET 1 EACH PO (20:15)
--- NOTE | 2022-11-13 21:34 | PC.NURSE ---
Blood Glucose 1600- Hi. Asymptomatic. Water encouraged. Blood Glucose 1700: 591. Snack available of Cochran shortcake, juice. Insulin administered. Blood Glucose 20:00-High, Asymptomatic. Water encouraged. Rechecked at 21:00-590. Insulin administered. Snack provided for NOC of 7-up, pudding, cheese stick.
[2022-11-14] MEDS: ACETAMINOPHEN 500 MG TABLET 1000 MG PO ×3 (07:26→19:59)
[2022-11-14] MEDS: ASPIRIN 81 MG TABLET EC PO (07:26)
[2022-11-14] MEDS: HYDROXYUREA 500 MG CAPSULE PO (07:27)
[2022-11-14] MEDS: guaiFENesin 600 MG TAB.ER.12H 1200 MG PO ×2 (07:27→15:21)
[2022-11-14] MEDS: FLUTICASONE PROPIONATE NASAL 1 SPRAY NOSTRIL-B ×2 (07:27→15:21)
[2022-11-14] MEDS: FLUTICASONE/SALMETEROL 500/50 INHALER 1 EACH INH ×2 (07:27→15:21)
[2022-11-14] MEDS: CETIRIZINE HCL 10 MG TABLET PO (07:28)
[2022-11-14] MEDS: SENNOSIDES 1 TAB TABLET 2 TAB PO ×2 (07:28→15:21)
[2022-11-14 07:53] LABS: Hemoglobin A1C* 8.37 % (0-5.6)
--- NOTE | 2022-11-14 10:14 | PC.NURSE ---
Lab result: Hgb A1C result of 8.37 received today. Result placed in WATER SPONGER binder for review.
--- NOTE | 2022-11-14 10:21 | PC.NURSE ---
Education note: Resident was noted to be saying this morning, I think it's all the food they feed me here that drives my blood sugar up. Pharmacy Operations Specialist spent time educating resident that when he is at meals it can be things like adding brown sugar to hot cereal and eating extra carbs that contribute to his high blood sugars. Water encouraged this morning as blood sugar noted to be 545 before breakfast. Resident has had no hyperglycemia symptoms or signs noted so far this shift. Staff will continue to educate resident regarding dietary choices as he prepares for upcoming dischare.
--- NOTE | 2022-11-14 14:05 | PC.SOCIAL ---
Resident will discharge home Saturday at 10 am. His sister will transport. [facility] Nurse will open res. to services at 11am. Resident will have nursing weekly and a SPRAY BOOTH OPERATOR 2x a week. Meals on Wheels will start on 11/26. Orders are to be faxed to [phone] attn: Gladys West.
--- NOTE | 2022-11-14 14:46 | PC.NURSE ---
Discharge : Resident is for Discharge on Saturday
[2022-11-14 19:13] VITALS: RESP 18; TEMP 36.5
[2022-11-14] MEDS: MONTELUKAST 10 MG TABLET PO (20:05)
[2022-11-14] MEDS: PRAVASTATIN 80 MG TABLET 1 EACH PO (20:05)
[2022-11-15] MEDS: ACETAMINOPHEN 500 MG TABLET 1000 MG PO ×3 (07:18→21:13)
[2022-11-15] MEDS: FLUTICASONE PROPIONATE NASAL 1 SPRAY NOSTRIL-B ×2 (07:19→16:04)
[2022-11-15] MEDS: ASPIRIN 81 MG TABLET EC PO (07:19)
[2022-11-15] MEDS: guaiFENesin 600 MG TAB.ER.12H 1200 MG PO ×2 (07:20→16:04)
[2022-11-15] MEDS: FLUTICASONE/SALMETEROL 500/50 INHALER 1 EACH INH ×2 (07:21→16:04)
[2022-11-15] MEDS: HYDROXYUREA 500 MG CAPSULE PO (07:21)
[2022-11-15] MEDS: SENNOSIDES 1 TAB TABLET 2 TAB PO ×2 (07:22→16:05)
[2022-11-15] MEDS: CETIRIZINE HCL 10 MG TABLET PO (07:22)
--- NOTE | 2022-11-15 08:42 | PC.SPIRITC ---
Rossy expressed his excitement of going home as well as how much he has appreciated the relationships he has had at [facility], especially sitting out with fellow residents in the evening on the patio. Per Rossy, he will miss it here but is ready for the next step. I provided visit for support and to talk about leaving.
[2022-11-15] MEDS: MONTELUKAST 10 MG TABLET PO (20:14)
[2022-11-15] MEDS: PRAVASTATIN 80 MG TABLET 1 EACH PO (20:14)
[2022-11-15 21:44] VITALS: RESP 18; TEMP 36.5
[2022-11-16] MEDS: guaiFENesin 600 MG TAB.ER.12H 1200 MG PO (07:26)
[2022-11-16] MEDS: FLUTICASONE PROPIONATE NASAL 1 SPRAY NOSTRIL-B (07:26)
[2022-11-16] MEDS: ASPIRIN 81 MG TABLET EC PO (07:26)
[2022-11-16] MEDS: ACETAMINOPHEN 500 MG TABLET 1000 MG PO (07:26)
[2022-11-16] MEDS: HYDROXYUREA 500 MG CAPSULE PO (07:27)
[2022-11-16] MEDS: SENNOSIDES 1 TAB TABLET 2 TAB PO (07:27)
[2022-11-16] MEDS: CETIRIZINE HCL 10 MG TABLET PO (07:27)
[2022-11-16] MEDS: FLUTICASONE/SALMETEROL 500/50 INHALER 1 EACH INH (07:28)
[2022-11-16 09:52] VITALS: BP 105/59; PULSE 72; RESP 18; TEMP 36.5; O2SAT 96
--- NOTE | 2022-11-16 10:27 | PC.NURSE ---
Discharge: Resident was admitted from the [facility] where he underwent (R) hip ORIF. Received therapy OT/PT sometime during his stay at the facility. He has DM Type 2, blood sugars unstable mostly highs during the night and some lows project administrative assistant. Was sent to ED 2x for high blood sugars with vomiting.Was also seen by the metrology specialist regarding diabetic diet and supplements. Accu checks done QID and monitored by CTE TEACHER/MD with Insulin adjustments. Was seen by the Airline Counter Agent and Insulin adjustment done. Family and resident plan of going home after Endocrinology consult done. Discharge packets were reviewed with sister and given. Appropriate medications also sent. Discharge to home ambulatory with a 44w, with sister and brother. With home Care service in place.
--- NOTE | 2022-11-16 10:45 | PC.NURSE ---
Discharge VS: T-97.7 RR-18 P-72 BP-105/59 02 sat 96%.
== END 2022-11-16 10:05 | disposition home or self-care (01) | DRG 862 ==
LOC: NLTCC 08-16 15:43 → LTCBEDHOLD 08-21 12:40 → NLTCC 08-22 15:14 → LTCBEDHOLD 08-31 08:42
PROVIDERS: Family Medicine; Admitting Provider Family Medicine; PCP Family Medicine; Visit Provider Nurse Practitioner Gerontology
DX: Z98.890 Other specified postprocedural states (principal)
CPT/HCPCS: 36415; 80048; 83036; 85025; 87635; 97110; 97116; 97162; 97165; 97166; 97530; 97535

== ENCOUNTER 2022-08-18 09:02 | Inpatient (IN) | payer OTHER, MEDICAID, SELFPAY ==
[2022-08-18] VITALS (17 sets, daily range): BP systolic 104–124; BP diastolic 44–90; PULSE 67–90; RESP 18–20; TEMP 36.4–36.5; O2SAT 96–100; BMI 21.7; BMI 21.4
--- NOTE | 2022-08-18 09:30 | ED.NURSE ---
Pt has known hx of COPD w/ O2 dependance - placed on 2L via NC to maintain O2 sats >88%.
[2022-08-18 09:31] LABS: Basophils Absolute Auto 0.04 K/uL (0.00-0.30); Basophils Percent Auto 0.4 % (0.0-3.0); Eosinophils Percent Auto 2.2 % (0.0-7.0); Hematocrit 33.7 % (37.0-53.0); Hemoglobin* 10.9 gm/dL (13.5-17.5); Immature Granulocytes Abs Auto 0.02 K/uL (0.00-0.30); Immature Granulocytes Pct Auto 0.2 %; Lymphocytes Absolute Auto 2.21 K/uL (0.90-2.90); Mean Corpuscular HGB Conc 32 gm/dL (32-36); Mean Corpuscular Hemoglobin 35 pg (26-34); Mean Corpuscular Volume 109 fL (80-100); Neutrophils Absolute Auto 6.38 K/uL (1.7-7.0); Neutrophils Percent Auto 69.2 % (42.0-72.0); Platelet Count* 452 K/uL (140-440); RDW Coefficient of Variation % 13.1 % (11.5-15.5); Red Blood Count 3.08 m/uL (4.30-5.90); Slide Review Reflex No; White Blood Count* 9.22 K/uL (4.50-11.00)
[2022-08-18 09:45] LABS: Chloride* 99 mmol/L (96-114); Potassium* 5.5 mmol/L (3.6-5.1); Sodium* 131 mmol/L (135-149)
[2022-08-18 09:46] LABS: Albumin* 3.5 g/dL (3.3-5.0)
[2022-08-18] MEDS: 0.9 % SODIUM CHLORIDE 1000 ml 1,000 ML IV ×2 (09:46→15:50)
[2022-08-18 09:47] LABS: Creatinine* 1.6 mg/dL (0.5-1.5); Est. Creatinine Clearance* 38.43; Estimated Glomerular Filt Rate 44 ml/min
[2022-08-18 09:48] LABS: Blood Urea Nitrogen* 47 mg/dL (7-30); Carbon Dioxide* 15 mmol/L (20-32)
[2022-08-18 09:49] LABS: Alanine Aminotransferase* 49 U/L (4-50); Alkaline Phosphatase* 199 U/L (40-150); Aspartate Amino Transferase* 29 U/L (12-35); Bilirubin Direct* 0.6 mg/dL (0.0-0.5); Bilirubin Total* 0.9 mg/dL (0.1-1.5); Calcium* 8.8 mg/dL (8.4-10.6); Total Protein* 5.9 g/dL (6.0-8.3)
[2022-08-18 09:51] LABS: C Reactive Protein* 3.3 mg/dL (0.5-1.0)
[2022-08-18 10:03] LABS: Glucose* 789 mg/dL (60-115)
--- NOTE | 2022-08-18 10:08 | ED.NURSE ---
critical lab called from lab - STAN Kelley MD aware
--- NOTE | 2022-08-18 10:16 | ED.GENADULT ---
HPI - General Adult General Chief complaint: Diabetic Related Problem Stated complaint: hyperglycemic Time Seen by Provider: 08/18/22 09:12 Source: patient Limitations: no limitations History of Present Illness HPI narrative: 77-year-old male with a history of chronic kidney disease, hypertension, mild cognitive impairment, obstructive sleep apnea, see COPD on home oxygen therapy, type 2 diabetes presents to the ER today with elevated blood sugars. She suffered a broken right hip on the and was admitted until the , status post successful ORIF of the right hip. He has been in long-term care since then. This morning blood sugars were noted to be greater than what the blood sugar monitor could read and so patient was sent to the ER for evaluation. He states that he vomited this morning after he took 1 bite of his breakfast but otherwise feels fine. He denies feeling short of breath, fatigue or weakness. He continues to have pain in his right hip which is ameliorated with pain medication. The pain is not getting worse. He denies increasing confusion, dizziness or lightheadedness. He denies any chest or abdominal pain. Denies any diarrhea. States he did have his regular dose of insulin last night. Looking through his chart it appears that he takes glargine 24 units q.h.s. and aspart 8 units t.i.d.. He is also on a sliding scale insulin. Related Data Home Medications Medication Instructions Recorded Confirmed amlodipine 5 mg tablet 5 mg PO DAILY 08/10/22 08/18/22 aspirin 81 mg tablet,delayed 81 mg PO DAILY 08/10/22 08/18/22 release cetirizine 10 mg tablet 10 mg PO DAILY 08/10/22 08/18/22 hydroxyurea 500 mg capsule 500 mg PO DAILY 08/10/22 08/18/22 insulin glargine U-300 conc 300 24 unit subcut HS 08/10/22 08/18/22 unit/mL (1.5 mL) subcutaneous pen (Lamar Bear U-300 Insulin) lisinopril 5 mg tablet 5 mg PO DAILY 08/10/22 08/18/22 montelukast 10 mg tablet 10 mg PO HS 08/10/22 08/18/22 pravastatin 80 mg tablet 80 mg PO HS 08/10/22 08/18/22 acetaminophen 500 mg tablet 1,000 mg PO TID 08/18/22 08/18/22 fluticasone 500 mcg-salmeterol 50 1 inh inhalation BID 08/18/22 08/18/22 mcg/dose blistr powdr for inhalation (Advair Diskus) insulin aspart U-100 100 unit/mL 1 sliding scale dose subcut ACHS 08/18/22 08/18/22 (3 mL) subcutaneous pen (Novolog FlexPen U-100 Insulin aspart) insulin aspart U-100 100 unit/mL 8 unit subcut TIDWM 08/18/22 08/18/22 (3 mL) subcutaneous pen (Novolog FlexPen U-100 Insulin aspart) ipratropium 0.5 mg-albuterol 3 mg 3 ml inhalation Q2H PRN 08/18/22 08/18/22 (2.5 mg base)/3 mL nebulization soln oxycodone 5 mg tablet 5 mg PO Q4H PRN Pain 08/18/22 08/18/22 Previous Rx's Medication Instructions Recorded albuterol sulfate 90 mcg/actuation 2 puff inhalation Q2H PRN #8.5 08/14/22 aerosol inhaler (Ventolin HFA) grams aspirin 81 mg tablet,delayed 81 mg PO BID #60 tabs 08/14/22 release bisacodyl 10 mg rectal suppository 10 mg [place] DAILY PRN Constipation 08/14/22 #12 ea fluticasone propionate 50 1 spray intranasal BID #16 grams 08/14/22 mcg/actuation nasal spray,suspension guaifenesin 600 mg tablet, 1,200 mg PO BID #90 tabs 08/14/22 extended release 12 hr (Mucinex) nebulizer accessories #1 ea 08/14/22 nebulizer and compressor #1 ea 08/14/22 rivaroxaban 10 mg tablet (Xarelto) 10 mg PO DAILY #7 tabs 08/14/22 sennosides 8.6 mg tablet (Senna 17.2 mg PO BID #60 tabs 08/14/22 Lax) tiotropium bromide 18 mcg capsule 1 cap inhalation DAILY #60 08/14/22 with inhalation device (Spiriva inhalations with HandiHaler) Allergies Allergy/AdvReac Type Severity Reaction Status Date / Time No Known Drug Allergies Allergy Verified 08/10/22 15:25 Review of Systems Status of ROS: Reports: 10 or more systems reviewed and unremarkable except as noted in History and below [facility] Medical History Chronic kidney disease History of poliomyelitis Hypertension Mild cognitive impairment Obstructive sleep apnea On home oxygen therapy Severe chronic obstructive pulmonary disease Thrombocythemia Type 2 diabetes mellitus Surgical History H/O foot surgery History of cataract surgery History of open reduction and internal fixation (ORIF) procedure Social History Narrative: lives in senior apartments in [place]. Never , no kids. siblings in the area, supportive. has routine group home support via home health. retired from a [employer] in [place]. smoked until 1990. Highest level of school completed/degree received: high school graduate Smoking Status: Never smoker Do you use any of these nicotine containing products: None Second hand tobacco smoke exposure: No How often do you have a drink containing alcohol: never How often do you have six or more drinks on one occasion: Never AUDIT-C Alcohol total score: 0 Non-prescribed substance use: denies use Caffeine: Yes service: No Exam Narrative: Exam Narrative: Elderly, well-developed patient in no acute distress. Alert and oriented x3. Answers questions appropriately. Mood and affect are appropriate. Thoughts are goal oriented and rational. No tangential or magical thinking noted. Patient speaks in full sentences without needing to catch his breath. HEENT: Normocephalic atraumatic. Pupils are equally round reactive to light. Extraocular muscles are intact. Conjunctivae are moist without any icterus noted. Dry mucous membranes. Neck is soft. Cardiovascular: Heart is regular rate and rhythm S1 and S2 are present without any murmurs. Lungs: Clear to auscultation bilaterally no wheezes rhonchi or rales are appreciated. Patient takes deep breaths without any discomfort. Abdomen: Soft and nontender nondistended with normal bowel sounds. Extremities: Bilateral lower extremities have compression stockings in place, there is no evidence of edema. His incisions are properly dressed without tenderness to palpation and without surrounding erythema. Skin: Well perfused without any obvious rashes. Const: Vital Signs, click to edit/add: Vital Signs - 24 hr 08/18/22 09:04 08/18/22 10:14 08/18/22 10:16 Temperature 97.5 F L Pulse Rate Pulse Rate [Left P ulse Oximeter] 78 Respiratory Rate 18 Blood Pressure Blood Pressure [Le ft Upper Arm] 119/44 L Pulse Oximetry 98 99 100 Oxygen Delivery Me thod Room Air Nasal Cannula Oxygen Flow Rate 2 08/18/22 10:19 08/18/22 10:30 08/18/22 10:33 Temperature Pulse Rate 89 88 84 Pulse Rate [Left P ulse Oximeter] Respiratory Rate Blood Pressure 124/55 L Blood Pressure [Le ft Upper Arm] Pulse Oximetry 100 100 100 Oxygen Delivery Me thod Oxygen Flow Rate 08/18/22 10:34 08/18/22 11:00 Temperature Pulse Rate 83 79 Pulse Rate [Left P ulse Oximeter] Respiratory Rate Blood Pressure Blood Pressure [Le ft Upper Arm] Pulse Oximetry 100 100 Oxygen Delivery Me thod Oxygen Flow Rate Course Course Hospital Course: Blood glucose was 789. IV was placed and normal saline was started. 10 units of regular insulin was given which brought his blood sugars to above 600. At this time we did go ahead and start a insulin drip. CBC showed normal white cell count, hemoglobin low at 10.9, platelet count 452. Sodium low at 131, potassium high 5.5. Carbon dioxide low at 15. BUN 47, creatinine 1.6. Lactate elevated at 2. Vital Signs Vital signs: Initial Vital Signs Temperature 97.5 F L 08/18/22 09:04 Temperature Source Temporal Artery Scan 08/18/22 09:04 Pulse Rate 78 08/18/22 09:04 Respiratory Rate 18 08/18/22 09:04 Blood Pressure 119/44 L 08/18/22 09:04 Blood Pressure Mean 69 08/18/22 09:04 Blood Pressure Position Sitting 08/18/22 09:04 Pulse Oximetry 98 08/18/22 09:04 Oxygen Delivery Method 08/18/22 09:04 Vital Signs Temperature 97.5 F L 08/18/22 09:04 Pulse Rate 78 08/18/22 09:04 Respiratory Rate 18 08/18/22 09:04 Blood Pressure 119/44 L 08/18/22 09:04 Pulse Oximetry 98 08/18/22 09:04 Oxygen Delivery Method 08/18/22 09:04 Temperature 97.5 F L 08/18/22 09:04 Pulse Rate 79 03/04/23 11:00 Respiratory Rate 18 08/18/22 09:04 Blood Pressure 124/55 L 08/18/22 10:33 Pulse Oximetry 100 08/18/22 11:00 Oxygen Delivery Method 08/18/22 10:16 Oxygen Flow Rate 2 08/18/22 10:16 Medical Decision Making MDM Narrative Medical decision making narrative: 77-year-old male, postop day 7 status post ORIF of the right hip presenting with hyper glycemia. Patient will be admitted for further management. Medical Records Medical records reviewed: Yes I reviewed the patient's medical records Lab Data Lab results reviewed: Yes I reviewed the patient's lab results Labs: Lab Results 08/18/22 08/18/22 08/18/22 Range/Units 09:20 09:20 09:20 WBC 9.22 (4.50-11.00) K/uL RBC 3.08 L (4.30-5.90) m/uL Hgb 10.9 L (13.5-17.5) gm/dL Hct 33.7 L (37.0-53.0) % MCV 109 H (80-100) fL MCH 35 H (26-34) pg MCHC 32 (32-36) gm/dL RDW Coeff of Khushboo 13.1 (11.5-15.5) % Plt Count 452 H (140-440) K/uL Neut % (Auto) 69.2 (42.0-72.0) % Lymph % (Auto) 24.0 (20-44) % Williamson % (Auto) 4.0 (0.0-11.0) % Eos % (Auto) 2.2 (0.0-7.0) % Baso % (Auto) 0.4 (0.0-3.0) % Neut # (Auto) 6.38 (1.7-7.0) K/uL Lymph # (Auto) 2.21 (0.90-2.90) K/uL Williamson # (Auto) 0.40 (0.00-0.90) K/UL Eos # (Auto) 0.20 (0.00-0.50) K/uL Baso # (Auto) 0.04 (0.00-0.30) K/uL Sodium 131 L (135-149) mmol/L Potassium 5.5 H (3.6-5.1) mmol/L Chloride 99 (96-114) mmol/L Carbon Dioxide 15 L (20-32) mmol/L BUN 47 H (7-30) mg/dL Creatinine 1.6 H (0.5-1.5) mg/dL Estimated Creat Clear 38.43 Estimated GFR 44 ml/min Glucose 789 H* (60-115) mg/dL Lactate (0.5-1.9) mmol/L Calcium 8.8 (8.4-10.6) mg/dL Total Bilirubin 0.9 (0.1-1.5) mg/dL Direct Bilirubin 0.6 H (0.0-0.5) mg/dL AST 29 (12-35) U/L ALT 49 (4-50) U/L Alkaline Phosphatase 199 H (40-150) U/L C-Reactive Protein 3.3 H (0.5-1.0) mg/dL Total Protein 5.9 L (6.0-8.3) g/dL Albumin 3.5 (3.3-5.0) g/dL SARS-CoV-2 (PCR) (Negative) 08/18/22 08/18/22 Range/Units 09:20 10:30 WBC (4.50-11.00) K/uL RBC (4.30-5.90) m/uL Hgb (13.5-17.5) gm/dL Hct (37.0-53.0) % MCV (80-100) fL MCH (26-34) pg MCHC (32-36) gm/dL RDW Coeff of Khushboo (11.5-15.5) % Plt Count (140-440) K/uL Neut % (Auto) (42.0-72.0) % Lymph % (Auto) (20-44) % Williamson % (Auto) (0.0-11.0) % Eos % (Auto) (0.0-7.0) % Baso % (Auto) (0.0-3.0) % Neut # (Auto) (1.7-7.0) K/uL Lymph # (Auto) (0.90-2.90) K/uL Williamson # (Auto) (0.00-0.90) K/UL Eos # (Auto) (0.00-0.50) K/uL Baso # (Auto) (0.00-0.30) K/uL Sodium (135-149) mmol/L Potassium (3.6-5.1) mmol/L Chloride (96-114) mmol/L Carbon Dioxide (20-32) mmol/L BUN (7-30) mg/dL Creatinine (0.5-1.5) mg/dL Estimated Creat Clear Estimated GFR ml/min Glucose (60-115) mg/dL Lactate 2.0 H (0.5-1.9) mmol/L Calcium (8.4-10.6) mg/dL Total Bilirubin (0.1-1.5) mg/dL Direct Bilirubin (0.0-0.5) mg/dL AST (12-35) U/L ALT (4-50) U/L Alkaline Phosphatase (40-150) U/L C-Reactive Protein (0.5-1.0) mg/dL Total Protein (6.0-8.3) g/dL Albumin (3.3-5.0) g/dL SARS-CoV-2 (PCR) Negative SARS-CoV-2 (Negative) Discharge Plan Discharge Clinical Impression: Hyperglycemia Patient Disposition: Admitted As Inpatient
[2022-08-18] MEDS: INSULIN INF 100 UNIT/100 ML 100 UNIT/100 ML BAG 8 UNIT IVPB (10:45)
[2022-08-18 11:23] LABS: SARS PCR* Negative SARS-CoV-2 (Negative)
--- NOTE | 2022-08-18 11:45 | ED.NURSE ---
Report to ARSEN Archer. Pt to go to CCU 3.
--- NOTE | 2022-08-18 12:24 | RESP.RT ---
Patient resting up in bed on Nasal cannula 2 Lpm, SaO2 98%, breathing regular/easy. Respiratory rate 16-22/minute, patient has good clear voice, good non-productive cough able to clear secretions when present. Bilateral breath sounds with good air movement all stanley, no wheeze noted. Patient has Home Oxygen at night and as needed. AARON, not used Home CPAP in years, uses Oxygen at night instead. Hx of COPD, with home medications of Albuterol MDI, Advair, Spiriva, and DuoNebs. Patient stated he uses his medication on Time every day, and the PRN ones additionally as needed.
[2022-08-18 13:37] LABS: Lactate* 2.3 mmol/L (0.5-1.9)
[2022-08-18 13:58] LABS: Chloride* 105 mmol/L (96-114); Sodium* 137 mmol/L (135-149)
[2022-08-18 13:59] LABS: Potassium* 4.3 mmol/L (3.6-5.1)
[2022-08-18 14:01] LABS: Carbon Dioxide* 22 mmol/L (20-32); Creatinine* 1.4 mg/dL (0.5-1.5); Est. Creatinine Clearance* 43.26; Estimated Glomerular Filt Rate 51 ml/min
--- NOTE | 2022-08-18 14:01 | CRLHL7_ITS ---
For Patients: As a result of the Century Cures Act, medical imaging exams and procedure reports are released immediately into your electronic medical record. You may view this report before your referring provider. If you have questions, please contact your health care provider. DATE: 08/18/2022 CLINICAL HISTORY: Patient with left facial droop and slurred speech. TECHNIQUE: Standard helical CT image acquisition of the neck up to the skull base after bolus intravenous contrast enhancement. Multiplanar reconstructed images performed on a separate workstation. COMPARISON: CT same day. FINDINGS: The origins of the great vessels from the aortic arch are patent. The origin of the right vertebral artery is patent. The origin of the left vertebral artery is patent. The common carotid arteries are patent. There is no stenosis at the origin of the right internal carotid artery. There is no stenosis at the origin of the left internal carotid artery. The rest of the cervical segments of the internal carotid arteries are patent up to the skull base. The vertebral arteries are codominant. The cervical segments of the vertebral arteries are patent up to the skull base. The visualized lung apices are unremarkable. The thyroid gland is unremarkable. The soft tissues of the neck are unremarkable. There are degenerative changes in the cervical spine. IMPRESSION: Normal CT angiogram of the neck. Please note that all CT scans at this facility use dose modulation, iterative reconstruction, and/or weight-based dosing when appropriate to reduce radiation dose to as low as reasonably achievable. Dictated by Jasiel Lopez MD @ 08/19/2022 1:01:11 AM (Electronically Signed)
--- NOTE | 2022-08-18 14:01 | CRLHL7_ITS ---
For Patients: As a result of the Century Cures Act, medical imaging exams and procedure reports are released immediately into your electronic medical record. You may view this report before your referring provider. If you have questions, please contact your health care provider. History: Left facial droop. Slurred speech. Comparison: None available No clinically significant absent or occluded segments of the vessels of the [place] of [place]. Patent proximal portions of the anterior, middle, and posterior cerebral arteries bilaterally. Patent anterior communicating artery. I cannot definitely identify the posterior communicating arteries, a variant of normal. Patent basilar artery with patent bilateral codominant vertebral arteries. No sign of intracranial aneurysm. Normal CTA appearance of the venous drainage of the brain. Dominant left transverse sinus results in a dominant left internal jugular vein. Moderate diffuse cerebral atrophy. Multiple mucous retention cysts scattered throughout the paranasal sinuses bilaterally. Impression: Unremarkable CTA of the brain. Please note that all CT scans at this facility use dose modulation, iterative reconstruction, and/or weight-based dosing when appropriate to reduce radiation dose to as low as reasonably achievable. Dictated by Burton Morillo MD @ 08/18/2022 3:48:11 PM (Electronically Signed)
[2022-08-18 14:02] LABS: Blood Urea Nitrogen* 46 mg/dL (7-30); Calcium* 8.8 mg/dL (8.4-10.6)
[2022-08-18 14:13] LABS: Glucose* 475 mg/dL (60-115)
--- NOTE | 2022-08-18 14:18 | CRLHL7_ITS ---
For Patients: As a result of the Cures Act, medical imaging exams and procedure reports are released immediately into your electronic medical record. You may view this report before your referring provider. If you have questions, please contact your health care provider. INDICATION: Hyperglycemia. Question pneumonia.. TECHNIQUE: Chest 1 views. COMPARISON: Radiograph 08/10/2022. FINDINGS: Cardiovascular and mediastinum: Heart size and vasculature are normal in caliber and appearance. Lungs and pleural spaces: Lungs are clear. No sign of infiltrate or mass. No sign of pleural effusion. No pneumothorax. Bones and soft tissues: No significant findings. IMPRESSION: No acute cardiopulmonary abnormalities. Dictated by Kings Knowles MD @ 08/18/2022 3:48:43 PM (Electronically Signed)
--- NOTE | 2022-08-18 14:30 | P.IMHP_ITS ---
Hospitalist- H&P: HPI History of Present Illness Time Seen by Provider: 13:00 Date Seen: 08/18/22 Chief complaint: hyperglycemic Narrative: Rossy Villa is a 77 year old male insulin-dependent diabetic who presented through our ER for hyperglycemia. At the end of July he had a fall with a right hip fracture for which he had an or IF on 08/11/2022. He was sent to long- term care for rehab on Saturday. On Saturday and he had some low blood sugars for which his insulin regimen was decreased, but this did not happen until Saturday afternoon. Notably on Saturday morning and the noon check for blood sugars these were 443 and 537 respectively. By Saturday evening he was getting extra doses of insulin for elevated blood sugars. His sister, Joyce, is here with him today and give some history as well. She notes that when she was visiting yesterday she noticed his speech seems slurred and his left mouth was drooping. Those were new findings. She thought it was secondary to dry mouth that he had been complaining of and that he seemed dehydrated. Today though symptoms or even worse. Patient himself does not notice the slurring or left mouth drooping. He has no other focal numbness, weakness, or tingling. He is not having vision changes or headache. He does note very dry mouth over the last few days. This morning his blood sugar was so high that the monitor in long-term care could not read it. This was before breakfast this morning. When his breakfast came for him to eat it, he threw up. He was sent to the emergency department where his blood sugar was over 700. He was started on an insulin drip. He says he otherwise feels fine and does not have any abdominal complaints or any other complaints at this time. Review of Systems Status of ROS: Reports: 10 or more systems reviewed and unremarkable except as noted in History and below [facility] Medical History Chronic kidney disease History of poliomyelitis Hypertension Mild cognitive impairment Obstructive sleep apnea On home oxygen therapy Severe chronic obstructive pulmonary disease Thrombocythemia Type 2 diabetes mellitus Surgical History H/O foot surgery History of cataract surgery History of open reduction and internal fixation (ORIF) procedure Social History (Updated 08/18/22 @ 14:58 by Mini Carter MD) Narrative: Previously lived in senior apartments in [place]. Currently in LTCC for rehab after right femur/hip ORIF. Never , no kids. siblings in the area, supportive. had routine snf support via home health. retired from a [employer] company in [place]. smoked until 1990. Highest level of school completed/degree received: high school graduate Smoking Status: Former smoker What tobacco products do you use: cigars and pipe Do you use any of these nicotine containing products: None Second hand tobacco smoke exposure: No How often do you have a drink containing alcohol: never How often do you have six or more drinks on one occasion: Never AUDIT-C Alcohol total score: 0 Non-prescribed substance use: denies use Caffeine: Yes service: No Meds Home Medications and Allergies Home Medications Medication Instructions Recorded Confirmed Type amlodipine 5 mg tablet 5 mg PO DAILY 08/10/22 08/18/22 History aspirin 81 mg tablet,delayed 81 mg PO DAILY 08/10/22 08/18/22 History release cetirizine 10 mg tablet 10 mg PO DAILY 08/10/22 08/18/22 History hydroxyurea 500 mg capsule 500 mg PO DAILY 08/10/22 08/18/22 History insulin glargine U-300 conc 300 24 unit subcut HS 08/10/22 08/18/22 History unit/mL (1.5 mL) subcutaneous pen (Toualieo SoloStar U-300 Insulin) lisinopril 5 mg tablet 5 mg PO DAILY 08/10/22 08/18/22 History montelukast 10 mg tablet 10 mg PO HS 08/10/22 08/18/22 History pravastatin 80 mg tablet 80 mg PO HS 08/10/22 08/18/22 History acetaminophen 500 mg tablet 1,000 mg PO TID 08/18/22 08/18/22 History fluticasone 500 mcg-salmeterol 50 1 inh inhalation BID 08/18/22 08/18/22 History mcg/dose blistr powdr for inhalation (Advair Diskus) insulin aspart U-100 100 unit/mL 1 sliding scale dose subcut .TIDAC 08/18/22 08/18/22 History (3 mL) subcutaneous pen (Novolog FlexPen U-100 Insulin aspart) insulin aspart U-100 100 unit/mL 8 unit subcut TIDWM 08/18/22 08/18/22 History (3 mL) subcutaneous pen (Novolog FlexPen U-100 Insulin aspart) ipratropium 0.5 mg-albuterol 3 mg 3 ml inhalation Q2H PRN 08/18/22 08/18/22 History (2.5 mg base)/3 mL nebulization soln oxycodone 5 mg tablet 5 mg PO Q4H PRN Pain 08/18/22 08/18/22 History Allergies Allergy/AdvReac Type Severity Reaction Status Date / Time No Known Drug Allergies Allergy Verified 08/10/22 15:25 Exam Narrative: Exam Narrative: General: No acute distress. Awake alert oriented x3. HEENT: Normocephalic atraumatic, pupils equally round and reactive to light and accommodation. Oropharynx clear. Mucous membranes are very dry. No cervical lymphadenopathy, thyromegaly or carotid bruits. No JVD. Cardiovascular: Regular rate and rhythm. No murmurs, gallops, or rubs. Chest: No increased work of breathing. Clear to auscultation bilaterally. No crackles or wheezes. Abdomen: Bowel sounds present. Soft, nondistended, nontender. No hepatosplenomegaly or masses. Extremities: No edema, no cyanosis or clubbing. Skin: No jaundice, no pallor, no rashes. Neuro: Left lower facial droop and slurred speech are noted. Cranial nerves 2- 12 are otherwise intact. Extraocular movements are full. No nystagmus. Tongue is midline. Peripheral vision and vision are grossly intact. Romberg is negative. He has decreased dorsiflexion of the right foot; strength is otherwise 5/5 in all 4 extremities. DTRs intact and symmetric. Light touch sensation is intact in face body and extremities. Const: Vital Signs, click to edit/add: Vital Signs - 24 hr 08/18/22 09:04 08/18/22 10:14 08/18/22 10:16 Temperature 97.5 F L Pulse Rate Pulse Rate [Left A pical] Pulse Rate [Left P ulse Oximeter] 78 Respiratory Rate 18 Blood Pressure Blood Pressure [Le ft Upper Arm] 119/44 L Blood Pressure [Ri ght Arm] Pulse Oximetry 98 99 100 Oxygen Delivery Me thod Room Air Nasal Cannula Oxygen Flow Rate 2 08/18/22 10:19 08/18/22 10:30 08/18/22 10:33 Temperature Pulse Rate 89 88 84 Pulse Rate [Left A pical] Pulse Rate [Left P ulse Oximeter] Respiratory Rate Blood Pressure 124/55 L Blood Pressure [Le ft Upper Arm] Blood Pressure [Ri ght Arm] Pulse Oximetry 100 100 100 Oxygen Delivery Me thod Oxygen Flow Rate 08/18/22 10:34 08/18/22 11:00 08/18/22 11:30 Temperature Pulse Rate 83 79 79 Pulse Rate [Left A pical] Pulse Rate [Left P ulse Oximeter] Respiratory Rate Blood Pressure Blood Pressure [Le ft Upper Arm] Blood Pressure [Ri ght Arm] Pulse Oximetry 100 100 99 Oxygen Delivery Me thod Oxygen Flow Rate 08/18/22 11:32 08/18/22 12:23 08/18/22 11:39 Temperature 97.7 F Pulse Rate 78 Pulse Rate [Left A pical] 90 Pulse Rate [Left P ulse Oximeter] Respiratory Rate 20 20 Blood Pressure 122/51 L Blood Pressure [Le ft Upper Arm] Blood Pressure [Ri ght Arm] 104/47 L Pulse Oximetry 100 98 96 Oxygen Delivery Me thod Nasal Cannula Room Air Oxygen Flow Rate 2 08/18/22 11:39 Temperature Pulse Rate Pulse Rate [Left A pical] Pulse Rate [Left P ulse Oximeter] Respiratory Rate Blood Pressure Blood Pressure [Le ft Upper Arm] Blood Pressure [Ri ght Arm] Pulse Oximetry 96 Oxygen Delivery Me thod Room Air Oxygen Flow Rate Documenting provider has reviewed patient's vital signs: yes Hospitalist - H&P: Result Labs Labs: Short CBC 08/18/22 Range/Units 09:20 WBC 9.22 (4.50-11.00) K/uL Hgb 10.9 L (13.5-17.5) gm/dL Hct 33.7 L (37.0-53.0) % Plt Count 452 H (140-440) K/uL BMP 08/18/22 08/18/22 09:20 13:28 Sodium 131 L 137 Potassium 5.5 H 4.3 Chloride 99 105 Carbon Dioxide 15 L 22 BUN 47 H 46 H Creatinine 1.6 H 1.4 Glucose 789 H* 475 H* Calcium 8.8 8.8 Liver Function 08/18/22 Range/Units 09:20 Total Bilirubin 0.9 (0.1-1.5) mg/dL Direct Bilirubin 0.6 H (0.0-0.5) mg/dL AST 29 (12-35) U/L ALT 49 (4-50) U/L Alkaline Phosphatase 199 H (40-150) U/L Albumin 3.5 (3.3-5.0) g/dL Assessment and Plan Assessment and plan (1) Hyperglycemia: Problem comment: - Nonketotic hyperosmolar hyperglycemia. This appears to have started prior to the change in insulin orders in long-term care. No obvious infectious source. Does have some neurologic findings concerning for possible stroke. - insulin drip started in the emergency room and blood sugar has trended downward, currently between 400 and 500. Continue insulin drip. I will start him on diabetic oral fluids well as give IV fluid bolus for dehydration related to hyperglycemia and start him on maintenance fluids. His potassium is already starting to trend downward, so I will add potassium to the maintenance fluids. Check a BMP again in 6 hours. I expect that he will likely be under 200 by later this evening and he can start to eat and transition to subcutaneous insulin at that time. Status: Acute (2) Type 2 diabetes mellitus: Problem comment: insulin dependent Status: Chronic (3) Hyperkalemia: Problem comment: Secondary to electrolyte chips from hyperglycemia. Already improving. Status: Acute (4) Hyponatremia: Problem comment: Secondary to electrolyte shifting from hyperglycemia. Already improving. Status: Acute (5) Acute kidney injury: Problem comment: Secondary to dehydration from hyperglycemia. Give IV fluids and allow patient to drink oral fluids. Monitor. Status: Acute (6) Chronic kidney disease: Status: Chronic (7) Dysarthria: Problem comment: This and left facial droop are new, concerning for stroke, may be why he is hyperglycemic. Check CTA of head and neck. The symptoms started sometime yesterday and he is well outside the window for tPA. He is currently on low- dose Xarelto for VTE prophylaxis after hip surgery. Check an EKG and monitor on telemetry to look for atrial fibrillation. Continue Xarelto at current dose. I will also obtain a speech therapy consult. Status: Acute (8) Mild cognitive impairment: Problem comment: At baseline at discharge Status: Chronic (9) On home oxygen therapy: Problem comment: 2 L at baseline, sounds like this is a mix of COPD and AARON. Status: Chronic (10) Obstructive sleep apnea: Problem comment: has home CPAP Status: Chronic (11) Hypertension: Problem comment: On lisinopril as an outpatient. Hold this due to SEEMA Status: Chronic (12) Severe chronic obstructive pulmonary disease: Problem comment: Continue Advair to BID, continue flonase, added Mucinex, continue Spiriva, Nebulized DuoNeb's and albuterol MDI prn. Chronic home O2 at night, increased to as needed with activity after hip surgery. Status: Chronic (13) Closed right hip fracture: Problem comment: fall ORIF right hip, 08/11/22. Dr Michaels [place] slow rehab d/t deformity (baseline) of right ankle, chronic lung disease. Was getting rehab at long-term care. Status: Acute
[2022-08-18 15:23] LABS: Appearance Urine Clear (Clear); Bilirubin Urine 1+ (Negative); Blood Urine Negative (Negative); Color Urine Yellow (Yellow); Glucose Urine 3+ (Negative); Ketones Urine 4+ (Negative); Leukocyte Esterase Urine Negative (Negative); Nitrite Urine Negative (Negative); Protein Urine Negative (Negative); Specific Gravity Urine 1.015 (1.000-1.030); Urobilinogen Urine 0.2 (0.2-1.0)
[2022-08-18 15:32] LABS: RBC Urine 0-2 (0-2); WBC Urine 0-2 (0-5)
[2022-08-18 15:37] LABS: Troponin I* 0.02 ng/mL (0.01-0.04)
[2022-08-18] MEDS: 0.9 % SODIUM CH + KCL 20 mEq/L 1,000 ML 125 ML IV (17:25)
[2022-08-18] MEDS: 5 % DEX/0.9 SOD CHL+KCL 20 mEq 1,000 ML 125 ML IV (18:20)
--- NOTE | 2022-08-18 18:58 | PC.NURSE ---
Pt admitted from ED at 1210 pm. He was a post op rehab pt in LTCC s/p right hip surgery last week. Pt last bg in ED was 569. Additional IV start per Gladys RN to RAC for diagnostic imaging procedure. CT scan completed. Pt remains on insulin gtt at this time. Please see eMar for protocol and medication titration list. Pt had an EKG done, 1000cc fluid bolus, Tele in place indicates NSR with BBB. IV maintenance fluid at 125cc/hr. BG's checked every 1 hour and insulin gtt adjusted per protocol. Pt had yogurt and malt-o-meal for dinner. Sister Isael present for admission until 5PM. Oxygen at 2L/nc d/to hx of COPD and sleep apnea. Urine sample sent for analysis and culture. Adv. to regular diet however pt has poor dentition and prefers softer foods. Report to Sandra LEGER for night guard.
[2022-08-18 20:22] LABS: Chloride* 110 mmol/L (96-114); Potassium* 3.7 mmol/L (3.6-5.1); Sodium* 140 mmol/L (135-149)
[2022-08-18 20:25] LABS: Blood Urea Nitrogen* 41 mg/dL (7-30); Carbon Dioxide* 27 mmol/L (20-32); Creatinine* 1.2 mg/dL (0.5-1.5); Est. Creatinine Clearance* 50.47; Estimated Glomerular Filt Rate 62 ml/min; Glucose* 97 mg/dL (60-115)
[2022-08-18 20:26] LABS: Calcium* 8.3 mg/dL (8.4-10.6)
[2022-08-18 20:37] LABS: Troponin I* 0.02 ng/mL (0.01-0.04)
[2022-08-18] MEDS: FLUTICASONE PROPIONATE NASAL 1 SPRAY NOSTRIL-B (20:40)
[2022-08-18] MEDS: PRAVASTATIN SODIUM 20 MG TABLET 80 MG PO (20:43)
[2022-08-18] MEDS: ACETAMINOPHEN 500 MG TABLET 1000 MG PO (20:43)
[2022-08-18] MEDS: guaiFENesin 600 MG TAB.ER.12H 1200 MG PO (20:43)
[2022-08-18] MEDS: MONTELUKAST 10 MG TABLET PO (20:43)
[2022-08-18] MEDS: SODIUM CHLORIDE 0.9 % (FLUSH) 10 ML SYRINGE 5 ML IVF (20:45)
[2022-08-18] MEDS: SENNOSIDES 1 TAB TABLET 2 TAB PO (20:45)
[2022-08-19] VITALS (11 sets, daily range): BP systolic 106–124; BP diastolic 41–65; PULSE 60–67; RESP 16–20; TEMP 36.4–36.6; O2SAT 92–98
[2022-08-19] MEDS: 5 % DEX/0.9 SOD CHL+KCL 20 mEq 1,000 ML 125 ML IV ×2 (02:18→09:55)
--- NOTE | 2022-08-19 06:33 | PC.NURSE ---
Addendum entered by Sandra Emmanuel RN 08/19/22 06:44: Pt tolerated that well. He used the urinal over night and did well with that. Original Note: Pt pleasant and coopertive. Insulin gtt infusing at 10.1 u/hr when I start my shift today. at 1930 BS was 112. no changes to infusion per protocal. next BS at 2029 was 101 and lab draw at 1999 showed a bs of 97. Spoke with Dr Cloud and Insulin gtt stopped at this time. BS checks changed to q4h. with some Levemir and novolog subQ ordered with checks. BS check at 2129 was 161. at 229 it was 132 and then this morving it was 89. Snack of yogurt given.
[2022-08-19 07:30] LABS: Basophils Absolute Auto 0.03 K/uL (0.00-0.30); Basophils Percent Auto 0.3 % (0.0-3.0); Eosinophils Absolute Auto 0.53 K/uL (0.00-0.50); Eosinophils Percent Auto 6.1 % (0.0-7.0); Hematocrit 32.6 % (37.0-53.0); Hemoglobin* 10.6 gm/dL (13.5-17.5); Immature Granulocytes Abs Auto 0.04 K/uL (0.00-0.30); Immature Granulocytes Pct Auto 0.5 %; Lymphocytes Absolute Auto 2.69 K/uL (0.90-2.90); Lymphocytes Percent Auto 30.8 % (20-44); Mean Corpuscular HGB Conc 33 gm/dL (32-36); Mean Corpuscular Hemoglobin 35 pg (26-34); Mean Corpuscular Volume 108 fL (80-100); Neutrophils Absolute Auto 5.18 K/uL (1.7-7.0); Neutrophils Percent Auto 59.3 % (42.0-72.0); Platelet Count* 356 K/uL (140-440); RDW Coefficient of Variation % 13.2 % (11.5-15.5); Red Blood Count 3.01 m/uL (4.30-5.90); White Blood Count* 8.73 K/uL (4.50-11.00)
[2022-08-19 07:33] LABS: Slide Review Reflex No
[2022-08-19 07:46] LABS: Chloride* 113 mmol/L (96-114); Potassium* 4.1 mmol/L (3.6-5.1); Sodium* 141 mmol/L (135-149)
[2022-08-19 07:49] LABS: Blood Urea Nitrogen* 32 mg/dL (7-30); Carbon Dioxide* 26 mmol/L (20-32); Est. Creatinine Clearance* 60.56; Estimated Glomerular Filt Rate 77 ml/min
[2022-08-19 07:50] LABS: Calcium* 8.4 mg/dL (8.4-10.6); Glucose* 109 mg/dL (60-115)
[2022-08-19] MEDS: RIVAROXABAN 10 MG TABLET PO (09:23)
[2022-08-19] MEDS: SENNOSIDES 1 TAB TABLET 2 TAB PO ×2 (09:23→20:37)
[2022-08-19] MEDS: ACETAMINOPHEN 500 MG TABLET 1000 MG PO ×3 (09:23→20:36)
[2022-08-19] MEDS: OXYCODONE 5 MG TABLET PO ×2 (09:24→12:58)
[2022-08-19] MEDS: guaiFENesin 600 MG TAB.ER.12H 1200 MG PO ×2 (09:24→20:36)
[2022-08-19] MEDS: SODIUM CHLORIDE 0.9 % (FLUSH) 10 ML SYRINGE 5 ML IVF ×2 (09:24→20:38)
[2022-08-19] MEDS: CETIRIZINE HCL 10 MG TABLET PO (09:24)
[2022-08-19] MEDS: HYDROXYUREA 500 MG CAPSULE PO (09:25)
[2022-08-19] MEDS: FLUTICASONE PROPIONATE NASAL 1 SPRAY NOSTRIL-B ×2 (09:25→20:44)
--- NOTE | 2022-08-19 12:53 | RESP.RT ---
Patient up in chair, on nasal cannula 2 Lpm, SaO2 93%, breathing regular/easy. BBS RUL inspiratory wheeze, remainder of lung stanley diminished with fair air movement. Patient using the Aerobika with good effort, and chest shake.
--- NOTE | 2022-08-19 13:31 | PM.IMPN1 ---
Progress Note: A&P Assessment and plan (1) Hyperglycemia: Problem details: - Nonketotic hyperosmolar hyperglycemia. This appears to have started prior to the change in insulin orders in long-term care. No obvious infectious source. Does have some neurologic findings concerning for possible stroke. - Now doing well off insulin drip. I have adjusted his LA insulin down and added a lower dose of his usual SA mealtime insulin. Continue ISS. - SEEMA, hyperkalemia and hyponatremia have resolved. Status: Acute (2) Type 2 diabetes mellitus: Problem details: insulin dependent - labile blood sugars Status: Chronic (3) Acute kidney injury: Problem details: Secondary to dehydration from hyperglycemia. Resolved. Status: Resolved (4) Dysarthria: Problem details: This and left facial droop were new and are now resolved. Was outside window for TPA. Concerning for TIA vs stroke. CTA head/neck okay. Check MRI head tomorrow. Status: Acute (5) Closed right hip fracture: Problem details: fall ORIF right hip, 08/11/22. Dr Michaels, [place] slow rehab d/t deformity (baseline) of right ankle, chronic lung disease. Return to LT likely tomorrow for ongoing rehab. Status: Acute (6) Severe chronic obstructive pulmonary disease: Problem details: Continue Advair to BID, continue flonase, added Mucinex, continue Spiriva, Nebulized DuoNeb's and albuterol MDI prn. Chronic home O2 at night, increased to as needed with activity after hip surgery. Status: Chronic (7) Hypertension: Problem details: On lisinopril as an outpatient. This was on hold due to SEEMA. BP soft, so I will continue to hold this. Status: Chronic (8) Obstructive sleep apnea: Problem details: has home CPAP Status: Chronic (9) Chronic kidney disease: Status: Chronic (10) On home oxygen therapy: Problem details: 2 L at baseline, sounds like this is a mix of COPD and AARON. Status: Chronic (11) Mild cognitive impairment: Problem details: At baseline Status: Chronic (12) History of open reduction and internal fixation (ORIF) procedure: Problem details: Right hip, 08/14/22 Status: Acute Plan Anticipate return to LTCC tomorrow after MRI brain. Subjective Time Seen by Provider: 10:20 Date Seen: 08/19/22 Interval history: Rossy is doing well today. The insulin gtt was stopped yesterday evening and he got 30 units of Levemir last night. This morning his blood glucose was about 89. He tells me he is in his usual state of health and has no symptoms of hypoglycemia. His brother, Boo, is in the room with him today and notes that femorals speech was still a little bit slurred last night, but is completely back to normal today. He also does not see any facial droop today. Boo was wondering why alonso had hyperglycemia and we discussed possible causes, but noted that we have not found confirmation of any stroke and he does not appear to have any infectious cause. Exam Narrative: Exam Narrative: General: No acute distress. Awake alert oriented x3. Oropharynx: Mucous membranes moist. Cardiovascular: Regular rate and rhythm. No murmurs, gallops, or rubs. Chest: No increased work of breathing. Clear to auscultation bilaterally. No crackles or wheezes. Extremities: No edema, bandages on R hip are clean, dry, and intact. Neuro: Left lower facial droop and slurred speech have resolved. Const: Vital Signs, click to edit/add: Vital Signs - 24 hr 08/18/22 16:20 08/18/22 15:00 08/18/22 16:15 Temperature 97.6 F Pulse Rate 71 Pulse Rate [Left A pical] 88 67 Respiratory Rate Blood Pressure [Le ft Arm] 109/44 L Pulse Oximetry 98 Oxygen Delivery Me thod Nasal Cannula Oxygen Flow Rate 2 08/18/22 19:48 08/18/22 21:25 08/19/22 02:32 Temperature 97.6 F 97.6 F Pulse Rate 67 Pulse Rate [Left A pical] 86 62 Respiratory Rate 20 18 Blood Pressure [Le ft Arm] 120/90 H Pulse Oximetry 98 95 Oxygen Delivery Me thod Room Air Nasal Cannula Oxygen Flow Rate 2 08/19/22 03:00 08/19/22 07:24 08/19/22 07:00 Temperature 97.6 F 97.7 F Pulse Rate 67 Pulse Rate [Left A pical] 61 66 Respiratory Rate 18 Blood Pressure [Le ft Arm] 124/64 122/51 L Pulse Oximetry 94 98 Oxygen Delivery Me thod Nasal Cannula Nasal Cannula Oxygen Flow Rate 2 2 08/19/22 11:00 08/19/22 12:52 Temperature 97.5 F L Pulse Rate Pulse Rate [Left A pical] 66 Respiratory Rate 20 Blood Pressure [Le ft Arm] 106/41 L Pulse Oximetry 96 92 Oxygen Delivery Me thod Room Air Nasal Cannula Oxygen Flow Rate 2 Documenting provider has reviewed patient's vital signs: yes Labs Labs: Laboratory Results - last 24 hr 08/18/22 08/18/22 08/18/22 13:28 13:28 15:05 WBC RBC Hgb Hct MCV MCH MCHC RDW Coeff of Khushboo Plt Count Neut % (Auto) Lymph % (Auto) Harrison % (Auto) Eos % (Auto) Baso % (Auto) Neut # (Auto) Lymph # (Auto) Harrison # (Auto) Eos # (Auto) Baso # (Auto) Sodium 137 Potassium 4.3 Chloride 105 Carbon Dioxide 22 BUN 46 H Creatinine 1.4 Estimated Creat Clear 43.26 Estimated GFR 51 Glucose 475 H* Lactate 2.3 H Calcium 8.8 Troponin I 0.02 Urine Color Yellow Urine Appearance Clear Urine pH 5.0 Ur Specific Ossian 1.015 Urine Protein Negative Urine Glucose (UA) 3+ A Urine Ketones 4+ A Urine Blood Negative Urine Nitrite Negative Urine Bilirubin 1+ A Urine Urobilinogen 0.2 Ur Leukocyte Esterase Negative Urine RBC 0-2 Urine WBC 0-2 Ur Squamous Epith Cells None Urine Bacteria None 08/18/22 08/19/22 08/19/22 20:04 06:57 06:57 WBC 8.73 RBC 3.01 L Hgb 10.6 L Hct 32.6 L MCV 108 H MCH 35 H MCHC 33 RDW Coeff of Khushboo 13.2 Plt Count 356 Neut % (Auto) 59.3 Lymph % (Auto) 30.8 Harrison % (Auto) 3.0 Eos % (Auto) 6.1 Baso % (Auto) 0.3 Neut # (Auto) 5.18 Lymph # (Auto) 2.69 Harrison # (Auto) 0.30 Eos # (Auto) 0.53 H Baso # (Auto) 0.03 Sodium 140 141 Potassium 3.7 4.1 Chloride 110 113 Carbon Dioxide 27 26 BUN 41 H 32 H Creatinine 1.2 1.0 Estimated Creat Clear 50.47 60.56 Estimated GFR 62 77 Glucose 97 109 Lactate Calcium 8.3 L 8.4 Troponin I 0.02 Urine Color Urine Appearance Urine pH Ur Specific Ossian Urine Protein Urine Glucose (UA) Urine Ketones Urine Blood Urine Nitrite Urine Bilirubin Urine Urobilinogen Ur Leukocyte Esterase Urine RBC Urine WBC Ur Squamous Epith Cells Urine Bacteria
--- NOTE | 2022-08-19 15:15 | PC.NURSE ---
Pt eval by Dr. Carter, PT, OT and myself this shift. Please see eMar for scheduled meds and prn medications for pain management d/to recent R hip surgery. Polar ice prn to site. SS insulin administered per protocol. Therapy recommends patient wear his shoes when up d/to balance issues secondary to hx of polio. Kieran from [facility] evaluated pt. Tele NSR. Pt denies dyspnea or SOB. Wears 2L/oxygen when sleeping. Dr. Carter aware of BG 397 with 15 units of insulin per SS at shift change. Hospitalist has added insulin scheduled doses with patient's meals to begin at 1800. Report to Ana Mooney RN for evening shift.
[2022-08-19] MEDS: MONTELUKAST 10 MG TABLET PO (20:36)
[2022-08-19] MEDS: PRAVASTATIN SODIUM 20 MG TABLET 80 MG PO (20:39)
[2022-08-20] VITALS (8 sets, daily range): BP systolic 102–145; BP diastolic 45–63; PULSE 61–74; RESP 14–18; TEMP 36.4–36.7; O2SAT 97–98
--- NOTE | 2022-08-20 06:00 | CRLHL7_ITS ---
For Patients: As a result of the Century Cures Act, medical imaging exams and procedure reports are released immediately into your electronic medical record. You may view this report before your referring provider. If you have questions, please contact your health care provider. INDICATION: Left facial droop. TECHNIQUE: Multiplanar multisequence noncontrast MR images acquired through the brain. COMPARISON: CTA head and neck 08/18/2022. FINDINGS: Prominence of the ventricles and sulci compatible with [id number] diffuse cerebral volume loss. No mass effect or midline shift. Scattered and patchy T2 FLAIR hyperintensities in the supratentorial white matter and carolin, typical for moderate chronic microvascular ischemic changes. No diffusion restriction to suggest acute infarction. No intracranial hemorrhage or pathologic extra-axial fluid collection. The major arterial flow voids of the skullbase are preserved. Thinning of the ocular lenses. Postsurgical changes of endoscopic sinus surgery. Multiple elongated T2 hyperintense lesions in the nasal cavity, concerning for polyposis. Small retention cysts or polyps within the ethmoid and maxillary sinuses. Severe opacification of the left sphenoid and left frontal sinuses. Air-fluid levels in the right sphenoid sinus. The mastoid air cells are clear. IMPRESSION: 1. No acute infarction, mass effect, or intracranial hemorrhage. 2. Moderate chronic microvascular ischemic changes and [id number] diffuse cerebral volume loss. 3. Postsurgical changes of endoscopic sinus surgery. Multiple elongated opacities within the nasal cavity, concerning for polyposis. Severe opacification of left frontal and left sphenoid sinuses. Air-fluid levels in the right sphenoid sinus can be seen in the setting of acute sinusitis. Dictated by Chandrakant De La Cruz MD @ 08/20/2022 12:16:33 PM (Electronically Signed)
--- NOTE | 2022-08-20 06:27 | PC.NURSE ---
Addendum entered by Royce Zuñiga RN 08/20/22 06:56: BG repeated at 0650 was 71. Original Note: Shift note: Patient's blood glucose has been fluctuating tonight. BG checked at 2200 was 301 and per the sliding scale 12U should have been given but junior technical writer opted to give 9U due to previous history of fluctuating BG. BG checked again at 0200 was 63, 300ml of apple juice given. BG repeated at at 0500 was 42 but no s/s noted. 2 peanut butter, 120ml of orange juice, 2 crackers and ice cream given. BG repeated at 0600 was 55. Radnor and 120ml of orange juice given. Vitally stable. O2>90% and no oxygen given. Pt had adequate sleep.
[2022-08-20] MEDS: FLUTICASONE PROPIONATE NASAL 1 SPRAY NOSTRIL-B ×2 (08:56→20:32)
[2022-08-20] MEDS: HYDROXYUREA 500 MG CAPSULE PO (08:58)
[2022-08-20] MEDS: CETIRIZINE HCL 10 MG TABLET PO (08:58)
[2022-08-20] MEDS: ACETAMINOPHEN 500 MG TABLET 1000 MG PO ×3 (08:58→20:33)
[2022-08-20] MEDS: SENNOSIDES 1 TAB TABLET 2 TAB PO ×2 (08:58→20:33)
[2022-08-20] MEDS: guaiFENesin 600 MG TAB.ER.12H 1200 MG PO ×2 (08:58→20:33)
[2022-08-20] MEDS: RIVAROXABAN 10 MG TABLET PO (08:58)
[2022-08-20] MEDS: SODIUM CHLORIDE 0.9 % (FLUSH) 10 ML SYRINGE 5 ML IVF (09:00)
[2022-08-20] MEDS: 5 % DEX/0.9 SOD CHL+KCL 20 mEq 1,000 ML 125 ML IV ×2 (10:19→19:58)
--- NOTE | 2022-08-20 11:05 | NUTR.NU ---
RDN with MD consult for Diabetic teaching. Patient is known to RDN as [facility] ([facility] for [facility] RDN visited with patient and sister whom reported patient does give himself insulin at home. He does receive MOMs meals, which sister manages for patient. He has received diet education/carbohydrate counting education in the past in [place] from their RDN. He does not currently monitor how much carbohydrates he is consuming at each meal. He did agree to diet education related to Diabetes today. Diabetic diet education provided. Discussed basics of carbohydrate counting including sources of carbohydrates and serving sizes. Discussed using the plate method for carbohydrate-controlled, balanced meals that include ? plate non-starchy vegetables, ? plate protein, and 3-4 servings of carbohydrates per meal (fruit, whole grains, legumes, milk, yogurt). Handouts provided to support discussion. RDN contact information provided and encouraged patient to call with questions. RDN to follow up as needed.
--- NOTE | 2022-08-20 14:49 | P.IMPN_ITS ---
Progress Note: A&P Assessment and plan (1) Hyperglycemia: Problem details: - Nonketotic hyperosmolar hyperglycemia. This appears to have started prior to the change in insulin orders in long-term care. No obvious infectious source. Neurologic findings resolved. - SEEMA, hyperkalemia and hyponatremia have resolved. Status: Resolved (2) Type 2 diabetes mellitus: Problem details: insulin dependent - labile blood sugars - Now on diabetic diet, not on IVF or D5. Adjust LA insulin to BID to allow it to be more easily adjusted. Mealtime insulin is 5u TID and I have lowered ISS. I have asked Rossy to eat a protein snack each night before bed. Status: Chronic (3) Dysarthria: Problem details: This and left facial droop were new and are now resolved. Was outside window for TPA. Concerning for TIA vs stroke. CTA head/neck okay. MRI okay. Status: Resolved (4) Closed right hip fracture: Problem details: fall ORIF right hip, 08/11/22. Dr Michaels, [place] slow rehab d/t deformity (baseline) of right ankle, chronic lung disease. Return to [facility] for ongoing rehab when blood glucose control has improved. Status: Acute (5) Severe chronic obstructive pulmonary disease: Problem details: Continue Advair to BID, continue flonase, added Mucinex, continue Spiriva, Nebulized DuoNeb's and albuterol MDI prn. Chronic home O2 at night, increased to as needed with activity after hip surgery. Status: Chronic (6) Hypertension: Problem details: On lisinopril as an outpatient. This was on hold due to SEEMA. Not hypertensive, BP a little labile as well, I will continue to hold this. Status: Chronic (7) Obstructive sleep apnea: Problem details: has home CPAP Status: Chronic (8) Chronic kidney disease: Status: Chronic (9) On home oxygen therapy: Problem details: 2 L at baseline, sounds like this is a mix of COPD and AARON. Status: Chronic (10) Mild cognitive impairment: Problem details: At baseline Status: Chronic (11) History of open reduction and internal fixation (ORIF) procedure: Problem details: Right hip, 08/14/22 Status: Acute Subjective Time Seen by Provider: 08:22 Date Seen: 08/20/22 Interval history: Rossy had high blood sugars last night and lows this morning. He was still on D5 for part of yesterday. He otherwise feels well. MRI results below. He denies sinus symptoms. His sister and brother were in the room around noon when I went back in to give them all MRI results. He has had no return of slurred speech or facial droop, according to his siblings. Exam Narrative: Exam Narrative: General: No acute distress. Awake alert oriented. Oropharynx: Mucous membranes moist. Cardiovascular: Regular rate and rhythm. No murmurs, gallops, or rubs. Chest: No increased work of breathing. Clear to auscultation bilaterally. No crackles or wheezes. Const: Vital Signs, click to edit/add: Vital Signs - 24 hr 08/19/22 15:54 08/19/22 15:00 08/19/22 15:00 Temperature 97.6 F Pulse Rate 62 Pulse Rate [Left A pical] 62 62 Pulse Rate [Pulse Oximeter] Respiratory Rate 18 16 Blood Pressure [Le ft Arm] 114/65 Pulse Oximetry 97 Oxygen Delivery Me thod Room Air 08/19/22 19:00 08/19/22 23:00 08/20/22 03:00 Temperature 97.5 F L 97.9 F 97.5 F L Pulse Rate Pulse Rate [Left A pical] 65 60 61 Pulse Rate [Pulse Oximeter] Respiratory Rate 16 16 16 Blood Pressure [Le ft Arm] 117/59 L 114/45 L Pulse Oximetry 97 95 97 Oxygen Delivery Me thod Room Air Room Air Room Air 08/20/22 07:33 08/20/22 11:00 Temperature 97.9 F 98.0 F Pulse Rate Pulse Rate [Left A pical] Pulse Rate [Pulse Oximeter] 74 69 Respiratory Rate 14 18 Blood Pressure [Le ft Arm] 102/61 120/58 L Pulse Oximetry 98 98 Oxygen Delivery Me thod Room Air Room Air Documenting provider has reviewed patient's vital signs: yes Labs Labs: Ordering Physician: Mini Carter M.D. Date of Service: 08/20/22 Procedure(s): MR head/brain wo con Accession Number(s): [id number] cc: Mini Carter M.D.; Sam Ruelas M.D.~ For Patients:? As a result of the Century Cures Act, medical imaging exams and procedure reports are released immediately into your electronic medical record.? You may view this report before your referring provider.? If you have questions, please contact your health care provider. INDICATION: Left facial droop. TECHNIQUE: Multiplanar multisequence noncontrast MR images acquired through the brain. COMPARISON: CTA head and neck 08/18/2022. FINDINGS: Prominence of the ventricles and sulci compatible with [id number] diffuse cerebral volume loss. No mass effect or midline shift. Scattered and patchy T2 FLAIR hyperintensities in the supratentorial white matter and carolin, typical for moderate chronic microvascular ischemic changes. No diffusion restriction to suggest acute infarction. No intracranial hemorrhage or pathologic extra-axial fluid collection. The major arterial flow voids of the skullbase are preserved. Thinning of the ocular lenses. Postsurgical changes of endoscopic sinus surgery. Multiple elongated T2 hyperintense lesions in the nasal cavity, concerning for polyposis. Small retention cysts or polyps within the ethmoid and maxillary sinuses. Severe opacification of the left sphenoid and left frontal sinuses. Air-fluid levels in the right sphenoid sinus. The mastoid air cells are clear. IMPRESSION: 1. No acute infarction, mass effect, or intracranial hemorrhage. 2. Moderate chronic microvascular ischemic changes and [id number] diffuse cerebral volume loss. 3. Postsurgical changes of endoscopic sinus surgery. Multiple elongated opacities within the nasal cavity, concerning for polyposis. Severe opacification of left frontal and left sphenoid sinuses. Air-fluid levels in the right sphenoid sinus can be seen in the setting of acute sinusitis. Dictated by Chandrakant De La Cruz MD @ 08/20/2022 12:16:33 PM (Electronically Signed)
--- NOTE | 2022-08-20 17:55 | PC.NURSE ---
Pt calm and cooperative during shift. Pt had low blood sugars overnight and first am blood sugar was 110 scheduled insulin held per MD direction. Pt's afternoon and evening blood glucose levels ranged from 236-263 insulin given. Pt had a MRI of the brain with no remarkable findings per report/MD.Pt had no pain during shift. Pt up to chair multiple times during shift. Pt a one assist with walker. Pt uses urinal frequently and independently. Pt alert and oriented times 3. Pt's cardiac care nurse showed sinus arrhythmia. Pt did not wear SCD's through out shift put had KILO's on. Pt educated on importance of SCD's while in bed.
[2022-08-20] MEDS: MONTELUKAST 10 MG TABLET PO (20:33)
[2022-08-20] MEDS: PRAVASTATIN SODIUM 20 MG TABLET 80 MG PO (20:34)
[2022-08-21 03:00] VITALS: BP 128/53; PULSE 67; RESP 16; TEMP 36.6; O2SAT 92
--- NOTE | 2022-08-21 03:03 | PM.IMPN1 ---
Progress Note: A&P Assessment and plan (1) Type 2 diabetes mellitus: Status: Chronic Plan [facility] Hospitalist collaboration. Nursing notified glucose is 355 (was 319 at bedtime). Patient is off insulin drip (was initially admitted with DKA). Has most recently had hypoglycemia in the nite and had been placed on d5ns with 20meq kcl at 125ml/hour. Will stop D5 IVF and check glucose in 30min and 60 min and Pippa RN will notify of results and will get am labs this am too. Patient is not scheduled for subq insulin until this am and is on po diet. Please call e hospitalist with questions Subjective Date Seen: 08/21/22 Exam Const: Vital Signs, click to edit/add: Vital Signs - 24 hr 08/20/22 07:33 08/20/22 11:00 08/20/22 07:00 Temperature 97.9 F 98.0 F Pulse Rate 67 Pulse Rate [Left A pical] Pulse Rate [Pulse Oximeter] 74 69 Respiratory Rate 14 18 Blood Pressure [Le ft Arm] 102/61 120/58 L Pulse Oximetry 98 98 Oxygen Delivery Me thod Room Air Room Air 08/20/22 15:00 08/20/22 17:13 08/20/22 19:00 Temperature 97.7 F 97.6 F Pulse Rate 73 Pulse Rate [Left A pical] 67 Pulse Rate [Pulse Oximeter] 65 Respiratory Rate 14 14 Blood Pressure [Le ft Arm] 120/57 L 127/55 L Pulse Oximetry 97 97 Oxygen Delivery Me thod Room Air Room Air 08/20/22 23:00 08/20/22 23:00 08/20/22 23:00 Temperature 97.7 F Pulse Rate 67 Pulse Rate [Left A pical] 66 Pulse Rate [Pulse Oximeter] Respiratory Rate 14 16 Blood Pressure [Le ft Arm] 145/63 H Pulse Oximetry 97 Oxygen Delivery Me thod Room Air
--- NOTE | 2022-08-21 04:19 | PC.NURSE ---
Conner called with blood glucose results. See orders. D/C IVF, SL and recheck BG x2 (30 minutes and 1 hour). Updated Conner with both results.
--- NOTE | 2022-08-21 06:15 | PC.NURSE ---
shift note: 5% Dextrose in 0.9% N/S and K+ set up as prescribed. However, the blood glucose level has remained high throughout the night. MD notified through [facility] and ordered to DC the IV fluid and recheck BG every 30mins 2x. At 0330 BG was 380, at 0400 BG was 376 and finally BG at 0600 was 350. Reported back to MD through charge nurse but no insulin was ordered. No s/s of hyperglycemia noted and reported. Pt had adequate sleep and O2>90% during sleep so no oxygen given.
[2022-08-21 07:00] VITALS: BP 137/58; PULSE 62; RESP 16; TEMP 36.6; O2SAT 96
[2022-08-21 07:46] LABS: Chloride* 105 mmol/L (96-114); Sodium* 133 mmol/L (135-149)
[2022-08-21 07:47] LABS: Potassium* 4.9 mmol/L (3.6-5.1)
[2022-08-21 07:49] LABS: Creatinine* 0.7 mg/dL (0.5-1.5); Est. Creatinine Clearance* 60.56; Estimated Glomerular Filt Rate 94 ml/min
[2022-08-21 07:50] LABS: Blood Urea Nitrogen* 17 mg/dL (7-30); Calcium* 8.5 mg/dL (8.4-10.6); Carbon Dioxide* 29 mmol/L (20-32)
[2022-08-21 07:51] LABS: Glucose* 365 mg/dL (60-115)
[2022-08-21] MEDS: HYDROXYUREA 500 MG CAPSULE PO (09:40)
[2022-08-21] MEDS: ACETAMINOPHEN 500 MG TABLET 1000 MG PO (09:40)
[2022-08-21] MEDS: SENNOSIDES 1 TAB TABLET 2 TAB PO (09:41)
[2022-08-21] MEDS: RIVAROXABAN 10 MG TABLET PO (09:41)
[2022-08-21] MEDS: guaiFENesin 600 MG TAB.ER.12H 1200 MG PO (09:41)
[2022-08-21] MEDS: CETIRIZINE HCL 10 MG TABLET PO (09:41)
[2022-08-21] MEDS: FLUTICASONE PROPIONATE NASAL 1 SPRAY NOSTRIL-B (09:44)
[2022-08-21] MEDS: SODIUM CHLORIDE 0.9 % (FLUSH) 10 ML SYRINGE 5 ML IVF (09:49)
--- NOTE | 2022-08-21 10:09 | P.DS_ITS ---
DS: Providers Provider Time Seen by Provider: 09:52 Date Seen: 08/21/22 Date of admission: 08/18/22 14:36 Primary care physician: Sam Ruelas MD Admitting Clinician: Mini Carter MD Consults: 08/18/22 14:00 Consult to Nutrition [CONS] Routine Comment: Reason for consult:: Diabetic Teaching Consult to Physical Therapy [CONS] Routine Comment: Reason(s) for PT Consult:: Evaluate and Treat Any Restrictions?:: No Restrictions Comment: Recent R hip ORIF Consult to Judicial Law Clerk [CONS] Routine Comment: Reason for Consult:: Discharge Planning Needs Consult to Speech Therapy [CONS] Routine Comment: Reason(s) for Speech Consult:: Speaking Difficulty 08/18/22 14:03 Consult to Occupational Therapy [CONS] Routine Comment: Reason(s) for OT Consult:: Evaluate and Treat Any Restrictions?:: No Restrictions Comment: Recent R hip ORIF Attending Physician on discharge: Mini Carter MD Date of Discharge: 08/21/22 DS: Diagnosis Discharge Diagnosis (1) Dysarthria: Status: Resolved Problem details: This and left facial droop were new and are now resolved. Was outside window for TPA. Concerning for TIA vs stroke. CTA head/neck okay. MRI okay. (2) Hyponatremia: Status: Resolved Problem details: Secondary to electrolyte shifting from hyperglycemia. (3) Hyperkalemia: Status: Resolved Problem details: Secondary to electrolyte chips from hyperglycemia. (4) Acute kidney injury: Status: Resolved Problem details: Secondary to dehydration from hyperglycemia. Resolved. (5) Hyperglycemia: Status: Resolved Problem details: - Nonketotic hyperosmolar hyperglycemia. This appears to have started prior to the change in insulin orders in long-term care. No obvious infectious source. Neurologic findings resolved. - SEEMA, hyperkalemia and hyponatremia have resolved. (6) History of open reduction and internal fixation (ORIF) procedure: Status: Acute Problem details: Right hip, 08/14/22 (7) Mild cognitive impairment: Status: Chronic Problem details: At baseline (8) Type 2 diabetes mellitus: Status: Chronic Problem details: labile blood glucose. Recommend establish with outpatient tennis net maker. (9) Hypertension: Status: Chronic Problem details: On lisinopril as an outpatient. This was on hold due to SEEMA. Not hypertensive, continue to hold lisinopril. May need to be restarted again as outpatient for renal protection with DM. (10) Obstructive sleep apnea: Status: Chronic Problem details: has home CPAP (11) Chronic kidney disease: Status: Chronic Problem details: as above in HTN. (12) On home oxygen therapy: Status: Chronic Problem details: 2 L at baseline, sounds like this is a mix of COPD and AARON. (13) Severe chronic obstructive pulmonary disease: Status: Chronic Problem details: Continue Advair to BID, continue flonase, added Mucinex, continue Spiriva, Nebulized DuoNeb's and albuterol MDI prn. Chronic home O2 at night, increased to as needed with activity after hip surgery. DS: Summary Hospital Course Hospital Course: This is a 77-year-old male with insulin-dependent diabetes mellitus who has had labile blood sugars in long-term care where he was briefly after a hospital stay for a hip fracture with ORIF. While in long-term care he became hyperglycemic with electrolyte abnormalities and was admitted to the hospital for that. He had some neurologic facial findings which resolved and for which had a CTA and MRI brain both of which were unremarkable. Blood sugars are now stable, he remains slightly hyper glycemic, but with no significant electrolyte abnormalities or acute kidney injury at this time. Blood sugars are labile for which I would recommend he establish with endocrinology as an outpatient. Return to long-term care for ongoing rehab. Time Spent with Patient Time attestation: Total time spent providing and/or coordinating discharge services: Exam Narrative: Exam Narrative: General: No acute distress. Awake alert oriented. Oropharynx: Mucous membranes moist. Cardiovascular: Regular rate and rhythm. No murmurs, gallops, or rubs. Chest: No increased work of breathing. Clear to auscultation bilaterally. No crackles or wheezes. Const: Vital Signs, click to edit/add: Vital Signs - 24 hr 08/20/22 11:00 08/20/22 15:00 08/20/22 17:13 Temperature 98.0 F 97.7 F Pulse Rate 73 Pulse Rate [Left A pical] Pulse Rate [Pulse Oximeter] 69 65 Respiratory Rate 18 14 Blood Pressure [Le ft Arm] 120/58 L 120/57 L Pulse Oximetry 98 97 Oxygen Delivery Me thod Room Air Room Air 08/20/22 19:00 08/20/22 23:00 08/20/22 23:00 Temperature 97.6 F Pulse Rate 67 Pulse Rate [Left A pical] 67 Pulse Rate [Pulse Oximeter] Respiratory Rate 14 14 Blood Pressure [Le ft Arm] 127/55 L Pulse Oximetry 97 Oxygen Delivery Me thod Room Air 08/20/22 23:00 03 03:00 Temperature 97.7 F 98 F Pulse Rate Pulse Rate [Left A pical] 66 67 Pulse Rate [Pulse Oximeter] Respiratory Rate 16 16 Blood Pressure [Le ft Arm] 145/63 H 128/53 L Pulse Oximetry 97 92 Oxygen Delivery Me thod Room Air Room Air Documenting provider has reviewed patient's vital signs: yes DS: Data Data Completed and Pending Completed studies during hospitalization: Ordering Physician: Mini Carter M.D. Date of Service: 08/18/22 Procedure(s): CT angio head Accession Number(s): [id number] cc: Mini Carter M.D.; Sam Ruelas M.D.~ For Patients: As a result of the Cures Act, medical imaging exams and procedure reports are released immediately into your electronic medical record. You may view this report before your referring provider. If you have questions, please contact your health care provider. History: Left facial droop. Slurred speech. Comparison: None available No clinically significant absent or occluded segments of the vessels of the [place] of [place]. Patent proximal portions of the anterior, middle, and posterior cerebral arteries bilaterally. Patent anterior communicating artery. I cannot definitely identify the posterior communicating arteries, a variant of normal. Patent basilar artery with patent bilateral codominant vertebral arteries. No sign of intracranial aneurysm. Normal CTA appearance of the venous drainage of the brain. Dominant left transverse sinus results in a dominant left internal jugular vein. Moderate diffuse cerebral atrophy. Multiple mucous retention cysts scattered throughout the paranasal sinuses bilaterally. Impression: Unremarkable CTA of the brain. Please note that all CT scans at this facility use dose modulation, iterative reconstruction, and/or weight-based dosing when appropriate to reduce radiation dose to as low as reasonably achievable. Dictated by Burton Morillo MD @ 08/18/2022 3:48:11 PM (Electronically Signed) Ordering Physician: Mini Carter M.D. Date of Service: 08/18/22 Procedure(s): CT angio neck Accession Number(s): [id number] cc: Mini Carter M.D.; Sam Ruelas M.D.~ For Patients: As a result of the Cures Act, medical imaging exams and procedure reports are released immediately into your electronic medical record. You may view this report before your referring provider. If you have questions, please contact your health care provider. DATE: 08/18/2022 CLINICAL HISTORY: Patient with left facial droop and slurred speech. TECHNIQUE: Standard helical CT image acquisition of the neck up to the skull base after bolus intravenous contrast enhancement. Multiplanar reconstructed images performed on a separate workstation. COMPARISON: CT same day. FINDINGS: The origins of the great vessels from the aortic arch are patent. The origin of the right vertebral artery is patent. The origin of the left vertebral artery is patent. The common carotid arteries are patent. There is no stenosis at the origin of the right internal carotid artery. There is no stenosis at the origin of the left internal carotid artery. The rest of the cervical segments of the internal carotid arteries are patent up to the skull base. The vertebral arteries are codominant. The cervical segments of the vertebral arteries are patent up to the skull base. The visualized lung apices are unremarkable. The thyroid gland is unremarkable. The soft tissues of the neck are unremarkable. There are degenerative changes in the cervical spine. IMPRESSION: Normal CT angiogram of the neck. Please note that all CT scans at this facility use dose modulation, iterative reconstruction, and/or weight-based dosing when appropriate to reduce radiation dose to as low as reasonably achievable. Dictated by Jasiel Lopez MD @ 08/19/2022 1:01:11 AM (Electronically Signed) Ordering Physician: Mini Carter M.D. Date of Service: 08/18/22 Procedure(s): XR chest 1V Accession Number(s): [id number] cc: Mini Carter M.D.; Sam Ruelas M.D.~ For Patients: As a result of the Cures Act, medical imaging exams and procedure reports are released immediately into your electronic medical record. You may view this report before your referring provider. If you have questions, please contact your health care provider. INDICATION: Hyperglycemia. Question pneumonia.. TECHNIQUE: Chest 1 views. COMPARISON: Radiograph 08/10/2022. FINDINGS: Cardiovascular and mediastinum: Heart size and vasculature are normal in caliber and appearance. Lungs and pleural spaces: Lungs are clear. No sign of infiltrate or mass. No sign of pleural effusion. No pneumothorax. Bones and soft tissues: No significant findings. IMPRESSION: No acute cardiopulmonary abnormalities. Dictated by Kings Knowles MD @ 08/18/2022 3:48:43 PM (Electronically Signed) Ordering Physician: Mini Carter M.D. Date of Service: 08/20/22 Procedure(s): MR head/brain wo con Accession Number(s): [id number] cc: Mini Carter M.D.; Sam Ruelas M.D.~ For Patients: As a result of the Century Cures Act, medical imaging exams and procedure reports are released immediately into your electronic medical record. You may view this report before your referring provider. If you have questions, please contact your health care provider. INDICATION: Left facial droop. TECHNIQUE: Multiplanar multisequence noncontrast MR images acquired through the brain. COMPARISON: CTA head and neck 08/18/2022. FINDINGS: Prominence of the ventricles and sulci compatible with mgdy-oo-nraxjlpl diffuse cerebral volume loss. No mass effect or midline shift. Scattered and patchy T2 FLAIR hyperintensities in the supratentorial white matter and carolin, typical for moderate chronic microvascular ischemic changes. No diffusion restriction to suggest acute infarction. No intracranial hemorrhage or pathologic extra-axial fluid collection. The major arterial flow voids of the skullbase are preserved. Thinning of the ocular lenses. Postsurgical changes of endoscopic sinus surgery. Multiple elongated T2 hyperintense lesions in the nasal cavity, concerning for polyposis. Small retention cysts or polyps within the ethmoid and maxillary sinuses. Severe opacification of the left sphenoid and left frontal sinuses. Air-fluid levels in the right sphenoid sinus. The mastoid air cells are clear. IMPRESSION: 1. No acute infarction, mass effect, or intracranial hemorrhage. 2. Moderate chronic microvascular ischemic changes and aaka-ti-mydofhps diffuse cerebral volume loss. 3. Postsurgical changes of endoscopic sinus surgery. Multiple elongated opacities within the nasal cavity, concerning for polyposis. Severe opacification of left frontal and left sphenoid sinuses. Air-fluid levels in the right sphenoid sinus can be seen in the setting of acute sinusitis. Dictated by Chandrakant De La Cruz MD @ 08/20/2022 12:16:33 PM (Electronically Signed) 08/18/2022 10:58 a.m. EKG: Normal sinus rhythm, 79 beats per minute, nonspecific intraventricular conduction delay. 08/18/2022 3:36 p.m. EKG: Normal sinus rhythm. Nonspecific intraventricular conduction delay. Labs on day of discharge: Labs from last 24 hours 08/21/22 06:45 Sodium 133 L Potassium 4.9 Chloride 105 Carbon Dioxide 29 BUN 17 Creatinine 0.7 Estimated Creat Clear 60.56 Estimated GFR 94 Glucose 365 H* Calcium 8.5 Discharge Plan Discharge Disposition: er [facility] Date of Admission: 08/18/22 14:36 Attending Provider on Discharge: Mini Carter Primary Care Provider: Sam Ruelas Discharge Date/Time: 08/21/22 10:24 Discharge Medications: New insulin detemir U-100 100 unit/mL (3 mL) Insulin Pen 12 unit subcut BID Qty: 1 0RF lisinopril 2.5 mg tablet 2.5 mg PO DAILY Qty: 30 0RF Continued cetirizine 10 mg tablet 10 mg PO DAILY Label Comments: TAKE 1 TABLET (10 MG) BY MOUTH ONCE DAILY. hydroxyurea 500 mg capsule 500 mg PO DAILY Label Comments: TAKE 1 CAPSULE (500 MG) BY MOUTH ONCE DAILY. montelukast 10 mg tablet 10 mg PO HS Label Comments: TAKE 1 TABLET BY MOUTH AT BEDTIME. pravastatin 80 mg tablet 80 mg PO HS Label Comments: TAKE 1 TABLET (80 MG) BY MOUTH AT BEDTIME. sennosides [Senna Lax] 8.6 mg Tablet 17.2 mg PO BID Qty: 60 0RF bisacodyl 10 mg Suppository 10 mg ID DAILY PRN (Reason: Constipation) Qty: 12 0RF albuterol sulfate [Ventolin HFA] 90 mcg/actuation Hfa Aerosol Inhaler 2 puff inhalation Q2H PRNQty: 8.5 3RF fluticasone propionate 50 mcg/actuation [place],Suspension 1 spray intranasal BID Qty: 16 0RF guaifenesin [Mucinex] 600 mg Tablet Extended Release 12hr 1,200 mg PO BID Qty: 90 0RF aspirin 81 mg tablet,delayed release (DR/EC) 81 mg PO BID Qty: 60 0RF Hold Instructions: not started yet, still on xarelto Rx Instructions: start this after you have finished Xarelto and complete 20 days of BID dosing; then go to daily dosing of aspirin Spiriva with HandiHaler 18 mcg capsule, w/inhalation device 1 cap inhalation DAILY Qty: 60 2RF Rx Instructions: puncture 1 cap using device; one dose = 2 inhalations (DME) nebulizer and compressor Device See Rx Instructions .Route Qty: 1 0RF Rx Instructions: As directed (DME) nebulizer accessories Kit See Rx Instructions .Route Qty: 1 0RF Rx Instructions: As directed acetaminophen 500 mg tablet 1,000 mg PO TID fluticasone propion-salmeterol [Advair Diskus] 500-50 mcg/dose blister with device 1 inh inhalation BID insulin aspart U-100 [Novolog FlexPen U-100 Insulin] 100 unit/mL (3 mL) insulin pen 1 sliding scale dose subcut .TIDAC Rx Instructions: GLUCOSE DOSE (UNITS) 0-200 0 201-250 1 251-300 2 301-350 3 351-400 4 >400 5 ipratropium-albuterol 0.5 mg-3 mg(2.5 mg base)/3 mL Solution For Nebulization 3 ml inhalation Q2H PRN oxycodone 5 mg Tablet 5 mg PO Q4H PRN (Reason: Pain) Changed insulin aspart U-100 [Novolog FlexPen U-100 Insulin] 100 unit/mL (3 mL) Insulin Pen 5 unit subcut TIDWM Qty: 15 0RF Held aspirin 81 mg tablet,delayed release (DR/EC) 81 mg PO DAILY Hold Instructions: Resume on 09/09/22. Resume went on with Xarelto and twice a day aspirin Label Comments: TAKE ONE TABLET BY MOUTH DAILY WITH A MEAL Discontinued amlodipine 5 mg tablet 5 mg PO DAILY Label Comments: TAKE ONE TABLET (5MG) BY MOUTH ONCE DAILY Toujeo SoloStar U-300 Insulin 300 unit/mL (1.5 mL) insulin pen 24 unit SUBCUT HS lisinopril 5 mg tablet 5 mg PO DAILY Label Comments: TAKE 1 TABLET (5 MG) BY MOUTH ONCE DAILY. Discharge Orders: Discharge Order (Routine); Ordered 08/21/22 Ordered By: Mini Carter Additional Instructions: PCP consider referral to Pediatric Care Coordinator for labile blood glucose. Activity Level: Other Activity Detail: Continue previous activity orders from recent hip surgery. Discharge Diet: Diabetic Follow Up Appointments: Sam Ruelas MD [Primary Care Provider] - Admit to: SNF Discharge Potential: Fair Length of Stay: <30 days Code Status: Full Code TEDs: Bilateral Knee Rehab Potential: Good Therapy: Physical Therapy and Occupational Therapy Therapy Orders: Evaluate and Treat Oxygen: No Urinary Catheter: No Glucose Checks: ACHS Orders are good >30 days: No Signature: Mini Carter MD
[2022-08-21 10:49] VITALS: BP 122/51; PULSE 67; RESP 16; TEMP 36.6
[2022-08-21 11:00] VITALS: BP 103/51; PULSE 64; RESP 16; TEMP 36.7; O2SAT 96
--- NOTE | 2022-08-21 13:47 | PC.NURSE ---
Discharge: Pt. pleasant and cooperative. Blood sugars 480 this morning, notified and scheduled insulin given and sliding scale used. Recheck was not possible as Pt. ordered breakfast and ate. BS at lunch was 269, insulin given and sliding scale used see eMAR. Pt. up to chair for meals and tolerated activity well. Pt. denies pain, N/V/SOB. VSS and 95% on RA. Pt. Discharged to [facility] at 1300 accompanied by sister and brother in law. Pt's IV removed intact. Discharge instructions given and signed. Pt. belongings list signed.
== END 2022-08-21 13:00 | DRG 638 ==
LOC: ED 09:32 → MEDSURG 11:28
PROVIDERS: Hospitalist; Admitting Provider Family Medicine; Emergency Provider Family Medicine; PCP Family Medicine; Visit Provider Family Medicine
DX: E11.65 Type 2 diabetes mellitus with hyperglycemia (principal); E87.1 Hypo-osmolality and hyponatremia; E11.00 Type 2 diabetes mellitus with hyperosmolarity without nonketotic hyperglycemic-hyperosmolar coma (NKHHC); N17.9 Acute kidney failure, unspecified; E87.5 Hyperkalemia; E86.0 Dehydration; R47.1 Dysarthria and anarthria; G31.84 Mild cognitive impairment of uncertain or unknown etiology; Z99.81 Dependence on supplemental oxygen; G47.33 Obstructive sleep apnea (adult) (pediatric); J44.9 Chronic obstructive pulmonary disease, unspecified; S72.001D Fracture of unspecified part of neck of right femur, subsequent encounter for closed fracture with routine healing; Z79.4 Long term (current) use of insulin; M62.59 Muscle wasting and atrophy, not elsewhere classified, multiple sites; I12.9 Hypertensive chronic kidney disease with stage 1 through stage 4 chronic kidney disease, or unspecified chronic kidney disease; E11.22 Type 2 diabetes mellitus with diabetic chronic kidney disease; N18.9 Chronic kidney disease, unspecified; R29.810 Facial weakness; Z86.12 Personal history of poliomyelitis
CPT/HCPCS: 36415; 70496; 70498; 70551; 71045; 80048; 80076; 81001; 82962; 83605; 84484; 85025; 86140; 87086; 87635; 92523; 93005; 94761; 97110; 97116; 97161; 97165; 97530; 97535; 99284; A9270; J3590; J7030; Q9967; S0176

== ENCOUNTER 2022-09-02 09:31 | Emergency (ER) | payer OTHER, MEDICAID, SELFPAY ==
[2022-09-02] VITALS (11 sets, daily range): BP systolic 101–122; BP diastolic 58–81; PULSE 73–88; RESP 18; TEMP 36.2; O2SAT 96–100; BMI 22.0
--- NOTE | 2022-09-02 09:52 | CRLHL7_ITS ---
For Patients: As a result of the Cures Act, medical imaging exams and procedure reports are released immediately into your electronic medical record. You may view this report before your referring provider. If you have questions, please contact your health care provider. Indication: Emesis Technique: Two views of the abdomen were acquired Comparison: No prior plain films of the abdomen Findings: Demineralized osseous structures and degenerative changes. Surgical changes of the right hip. Vascular calcifications. Nonspecific bowel gas pattern but no direct indication of ileus, obstruction or perforation. Impression: Nonspecific bowel gas pattern but no direct plain film indications of ileus, obstruction or perforation. Dictated by Abilio Grady MD @ 09/02/2022 10:44:59 AM (Electronically Signed)
--- NOTE | 2022-09-02 09:52 | ED.GENADULT ---
HPI - General Adult General Chief complaint: Diabetic Related Problem Stated complaint: High blood sugars Time Seen by Provider: 09/02/22 09:42 Source: patient Mode of arrival: ambulatory Limitations: no limitations History of Present Illness HPI narrative: 77-year-old male with a history of chronic kidney disease, hypertension, mild cognitive impairment, obstructive sleep apnea, COPD on home oxygen therapy, type 2 diabetes presents to the ER today with elevated blood sugars.?States that last night he checked his blood sugars and they were above 500. They continue to be above 500 today despite treatment. He is brought into the ER for further management. He states that he vomited 5 times this morning right after taking 1 bite of his breakfast, states that the vomit was ?dark?, but can not tell me if it was dark brown red or green. Patient presented very similarly at the beginning of the month. He denies feeling dizzy or lightheaded. He denies any abdominal pain. He denies any diarrhea. Patient does have a history of labile blood sugars with a recent hospitalization at the beginning of the month. He is also status post ORIF of the right hip. Related Data Home Medications Medication Instructions Recorded Confirmed aspirin 81 mg tablet,delayed 81 mg PO DAILY 08/10/22 08/18/22 release cetirizine 10 mg tablet 10 mg PO DAILY 08/10/22 08/18/22 hydroxyurea 500 mg capsule 500 mg PO DAILY 08/10/22 08/18/22 montelukast 10 mg tablet 10 mg PO HS 08/10/22 08/18/22 pravastatin 80 mg tablet 80 mg PO HS 08/10/22 08/18/22 acetaminophen 500 mg tablet 1,000 mg PO TID 08/18/22 08/18/22 fluticasone 500 mcg-salmeterol 50 1 inh inhalation BID 08/18/22 08/18/22 mcg/dose blistr powdr for inhalation (Advair Diskus) insulin aspart U-100 100 unit/mL 1 sliding scale dose subcut .TIDAC 08/18/22 08/18/22 (3 mL) subcutaneous pen (Novolog FlexPen U-100 Insulin aspart) ipratropium 0.5 mg-albuterol 3 mg 3 ml inhalation Q2H PRN 08/18/22 08/18/22 (2.5 mg base)/3 mL nebulization soln oxycodone 5 mg tablet 5 mg PO Q4H PRN Pain 08/18/22 08/18/22 Previous Rx's Medication Instructions Recorded albuterol sulfate 90 mcg/actuation 2 puff inhalation Q2H PRN #8.5 08/14/22 aerosol inhaler (Ventolin HFA) grams aspirin 81 mg tablet,delayed 81 mg PO BID #60 tabs 08/14/22 release bisacodyl 10 mg rectal suppository 10 mg NE DAILY PRN Constipation 08/14/22 #12 ea fluticasone propionate 50 1 spray intranasal BID #16 grams 08/14/22 mcg/actuation nasal spray,suspension guaifenesin 600 mg tablet, 1,200 mg PO BID #90 tabs 08/14/22 extended release 12 hr (Mucinex) nebulizer accessories #1 ea 08/14/22 nebulizer and compressor #1 ea 08/14/22 sennosides 8.6 mg tablet (Senna 17.2 mg PO BID #60 tabs 08/14/22 Lax) tiotropium bromide 18 mcg capsule 1 cap inhalation DAILY #60 08/14/22 with inhalation device (Spiriva inhalations with HandiHaler) insulin aspart U-100 100 unit/mL 5 unit (0.05 mL) subcut TIDWM #15 08/21/22 (3 mL) subcutaneous pen (Novolog mL FlexPen U-100 Insulin aspart) insulin detemir U-100 100 unit/mL 12 unit (0.12 mL) subcut BID #15 mL 08/21/22 (3 mL) subcutaneous pen (Levemir FlexPen) lisinopril 2.5 mg tablet 2.5 mg PO DAILY #30 tabs 08/21/22 Allergies Allergy/AdvReac Type Severity Reaction Status Date / Time No Known Drug Allergies Allergy Verified 08/10/22 15:25 Review of Systems Status of ROS: Reports: 10 or more systems reviewed and unremarkable except as noted in History and below [facility] Medical History Chronic kidney disease Closed right hip fracture History of poliomyelitis Hypertension Mild cognitive impairment Obstructive sleep apnea On home oxygen therapy Severe chronic obstructive pulmonary disease Thrombocythemia Type 2 diabetes mellitus Surgical History H/O foot surgery History of cataract surgery History of open reduction and internal fixation (ORIF) procedure Social History Narrative: Previously lived in senior apartments in [place]. Currently in LT for rehab after right femur/hip ORIF. Never , no kids. siblings in the area, supportive. had routine care home support via home health. retired from a [employer] company in [place]. smoked until 1990. Highest level of school completed/degree received: high school graduate Smoking Status: Former smoker What tobacco products do you use: cigars and pipe Do you use any of these nicotine containing products: None Second hand tobacco smoke exposure: No How often do you have a drink containing alcohol: never How often do you have six or more drinks on one occasion: Never AUDIT-C Alcohol total score: 0 Non-prescribed substance use: denies use Caffeine: Yes service: No Exam Narrative: Exam Narrative: Well-nourished well-developed patient in no acute distress. Alert. Answers questions appropriately. Mood and affect are appropriate. Thoughts are goal oriented and rational. No tangential or magical thinking noted. Patient speaks in full sentences without needing to catch his breath. HEENT: Normocephalic atraumatic. Pupils are equally round reactive to light. Extraocular muscles are intact. Conjunctivae are moist without any icterus noted. Dry mucous membranes. Posterior pharynx is normal. Neck is soft without any lymphadenopathy or thyromegaly. No masses are appreciated. Cardiovascular: Heart is regular rate and rhythm S1 and S2 are present without any murmurs. Lungs: Clear to auscultation bilaterally no wheezes rhonchi or rales are appreciated. Patient takes deep breaths without any discomfort. Abdomen: Soft and nontender nondistended with hypoactive bowel sounds. No guarding or rebound. No masses or organomegaly appreciated. Extremities: Bilateral lower extremities are without edema. Skin: Well perfused without any obvious rashes. Const: Vital Signs, click to edit/add: Vital Signs - 24 hr 09/02/22 09:32 09/02/22 10:33 09/02/22 10:34 Temperature 97.1 F L Pulse Rate 87 86 Pulse Rate [Pulse Oximeter] 88 Respiratory Rate 18 Blood Pressure 116/58 L Blood Pressure [Ri ght Upper Arm] 115/81 Pulse Oximetry 99 98 97 Oxygen Delivery Me thod Room Air 09/02/22 11:00 09/02/22 11:01 09/02/22 11:30 Temperature Pulse Rate 83 80 76 Pulse Rate [Pulse Oximeter] Respiratory Rate Blood Pressure 122/64 Blood Pressure [Ri ght Upper Arm] Pulse Oximetry 100 97 96 Oxygen Delivery Me thod 09/02/22 12:00 09/02/22 12:01 Temperature Pulse Rate 76 76 Pulse Rate [Pulse Oximeter] Respiratory Rate Blood Pressure 111/59 L Blood Pressure [Ri ght Upper Arm] Pulse Oximetry 99 99 Oxygen Delivery Me thod Course Course Hospital Course: Initial glucose here above 500. IV was established, labs were drawn, fluid was started as well as an IV dose of regular insulin. Given his episode of vomiting and hypoactive bowel sounds, he did proceed with a flat and upright film of his abdomen which, read by me, was unremarkable. After initial dose of insulin, glucose went down 414. Another 10 units was given - glucose went down to 323. Lab work was unremarkable, aside from a slightly elevated lactate at 2.2. Repeat lactate was done - continue to be elevated at 3.0. Another 5 units of insulin was given-blood sugar went down to 240. Vital Signs Vital signs: Initial Vital Signs Temperature 97.1 F L 09/02/22 09:32 Temperature Source Temporal Artery Scan 09/02/22 09:32 Pulse Rate 88 09/02/22 09:32 Respiratory Rate 18 09/02/22 09:32 Blood Pressure 115/81 09/02/22 09:32 Blood Pressure Mean 92 09/02/22 09:32 Blood Pressure Position Supine 09/02/22 09:32 Pulse Oximetry 99 09/02/22 09:32 Oxygen Delivery Method 09/02/22 09:32 Vital Signs Temperature 97.1 F L 09/02/22 09:32 Pulse Rate 88 09/02/22 09:32 Respiratory Rate 18 09/02/22 09:32 Blood Pressure 115/81 09/02/22 09:32 Pulse Oximetry 99 09/02/22 09:32 Oxygen Delivery Method 09/02/22 09:32 Temperature 97.1 F L 09/02/22 09:32 Pulse Rate 76 09/02/22 12:01 Respiratory Rate 18 09/02/22 09:32 Blood Pressure 111/59 L 09/02/22 12:01 Pulse Oximetry 99 09/02/22 12:01 Oxygen Delivery Method 09/02/22 09:32 Medical Decision Making MDM Narrative Medical decision making narrative: 77-year-old male with hyperglycemia, history of labile blood sugars. Blood sugar down to 240. Patient will be sent back to long-term care we will continue to be monitored, continue to be on a sliding scale insulin. Medical Records Medical records reviewed: Yes I reviewed the patient's medical records Lab Data Lab results reviewed: Yes I reviewed the patient's lab results Labs: Lab Results 09/02/22 09/02/22 09/02/22 Range/Units 09:50 09:50 09:50 WBC 4.97 (4.50-11.00) K/uL RBC 3.59 L (4.30-5.90) m/uL Hgb 12.6 L (13.5-17.5) gm/dL Hct 38.4 (37.0-53.0) % MCV 107 H (80-100) fL MCH 35 H (26-34) pg MCHC 33 (32-36) gm/dL RDW Coeff of Khushboo 13.1 (11.5-15.5) % Plt Count 445 H (140-440) K/uL Neut % (Auto) 63.6 (42.0-72.0) % Lymph % (Auto) 30.6 (20-44) % Gilmer % (Auto) 2.0 (0.0-11.0) % Eos % (Auto) 2.8 (0.0-7.0) % Baso % (Auto) 0.6 (0.0-3.0) % Neut # (Auto) 3.16 (1.7-7.0) K/uL Lymph # (Auto) 1.52 (0.90-2.90) K/uL Gilmer # (Auto) 0.10 (0.00-0.90) K/UL Eos # (Auto) 0.14 (0.00-0.50) K/uL Baso # (Auto) 0.03 (0.00-0.30) K/uL ESR 18 H (2-15) mm/hr VBG pH (7.32-7.43) VBG pCO2 (40-50) mmHG VBG pO2 (25-47) mmHG VBG HCO3 (21-28) mmol/L Sodium 136 (135-149) mmol/L Potassium 4.9 (3.6-5.1) mmol/L Chloride 100 (96-114) mmol/L Carbon Dioxide 21 (20-32) mmol/L BUN 30 (7-30) mg/dL Creatinine 1.0 (0.5-1.5) mg/dL Estimated Creat Clear 62.26 Estimated GFR 77 ml/min Glucose 557 H* (60-115) mg/dL Lactate (0.5-1.9) mmol/L Calcium 9.8 (8.4-10.6) mg/dL Total Bilirubin (0.1-1.5) mg/dL Direct Bilirubin (0.0-0.5) mg/dL AST (12-35) U/L ALT (4-50) U/L Alkaline Phosphatase (40-150) U/L C-Reactive Protein 0.8 (0.5-1.0) mg/dL Total Protein (6.0-8.3) g/dL Albumin (3.3-5.0) g/dL TSH (0.270-4.20) uIU/mL Urine Color (Yellow) Urine Appearance (Clear) Urine pH (5.0-8.5) Ur Specific [place] (1.000-1.030) Urine Protein (Negative) Urine Glucose (UA) (Negative) Urine Ketones (Negative) Urine Blood (Negative) Urine Nitrite (Negative) Urine Bilirubin (Negative) Urine Urobilinogen (0.2-1.0) Ur Leukocyte Esterase (Negative) Urine RBC (0-2) Urine WBC (0-5) Ur Squamous Epith Cells (None-Few) Urine Bacteria (None) 09/02/22 09/02/22 09/02/22 Range/Units 09:50 09:50 09:50 WBC (4.50-11.00) K/uL RBC (4.30-5.90) m/uL Hgb (13.5-17.5) gm/dL Hct (37.0-53.0) % MCV (80-100) fL MCH (26-34) pg MCHC (32-36) gm/dL RDW Coeff of Khushboo (11.5-15.5) % Plt Count (140-440) K/uL Neut % (Auto) (42.0-72.0) % Lymph % (Auto) (20-44) % Gilmer % (Auto) (0.0-11.0) % Eos % (Auto) (0.0-7.0) % Baso % (Auto) (0.0-3.0) % Neut # (Auto) (1.7-7.0) K/uL Lymph # (Auto) (0.90-2.90) K/uL Gilmer # (Auto) (0.00-0.90) K/UL Eos # (Auto) (0.00-0.50) K/uL Baso # (Auto) (0.00-0.30) K/uL ESR (2-15) mm/hr VBG pH (7.32-7.43) VBG pCO2 (40-50) mmHG VBG pO2 (25-47) mmHG VBG HCO3 (21-28) mmol/L Sodium (135-149) mmol/L Potassium (3.6-5.1) mmol/L Chloride (96-114) mmol/L Carbon Dioxide (20-32) mmol/L BUN (7-30) mg/dL Creatinine (0.5-1.5) mg/dL Estimated Creat Clear Estimated GFR ml/min Glucose (60-115) mg/dL Lactate 2.2 H (0.5-1.9) mmol/L Calcium (8.4-10.6) mg/dL Total Bilirubin 0.9 (0.1-1.5) mg/dL Direct Bilirubin 0.4 (0.0-0.5) mg/dL AST 34 (12-35) U/L ALT 41 (4-50) U/L Alkaline Phosphatase 230 H (40-150) U/L C-Reactive Protein (0.5-1.0) mg/dL Total Protein 7.4 (6.0-8.3) g/dL Albumin 4.3 (3.3-5.0) g/dL TSH 5.370 H (0.270-4.20) uIU/mL Urine Color (Yellow) Urine Appearance (Clear) Urine pH (5.0-8.5) Ur Specific [place] (1.000-1.030) Urine Protein (Negative) Urine Glucose (UA) (Negative) Urine Ketones (Negative) Urine Blood (Negative) Urine Nitrite (Negative) Urine Bilirubin (Negative) Urine Urobilinogen (0.2-1.0) Ur Leukocyte Esterase (Negative) Urine RBC (0-2) Urine WBC (0-5) Ur Squamous Epith Cells (None-Few) Urine Bacteria (None) 09/02/22 09/02/22 09/02/22 Range/Units 09:50 10:15 12:02 WBC (4.50-11.00) K/uL RBC (4.30-5.90) m/uL Hgb (13.5-17.5) gm/dL Hct (37.0-53.0) % MCV (80-100) fL MCH (26-34) pg MCHC (32-36) gm/dL RDW Coeff of Khushboo (11.5-15.5) % Plt Count (140-440) K/uL Neut % (Auto) (42.0-72.0) % Lymph % (Auto) (20-44) % Gilmer % (Auto) (0.0-11.0) % Eos % (Auto) (0.0-7.0) % Baso % (Auto) (0.0-3.0) % Neut # (Auto) (1.7-7.0) K/uL Lymph # (Auto) (0.90-2.90) K/uL Gilmer # (Auto) (0.00-0.90) K/UL Eos # (Auto) (0.00-0.50) K/uL Baso # (Auto) (0.00-0.30) K/uL ESR (2-15) mm/hr VBG pH 7.315 L (7.32-7.43) VBG pCO2 44 (40-50) mmHG VBG pO2 35.9 (25-47) mmHG VBG HCO3 22 (21-28) mmol/L Sodium (135-149) mmol/L Potassium (3.6-5.1) mmol/L Chloride (96-114) mmol/L Carbon Dioxide (20-32) mmol/L BUN (7-30) mg/dL Creatinine (0.5-1.5) mg/dL Estimated Creat Clear Estimated GFR ml/min Glucose (60-115) mg/dL Lactate 3.0 H (0.5-1.9) mmol/L Calcium (8.4-10.6) mg/dL Total Bilirubin (0.1-1.5) mg/dL Direct Bilirubin (0.0-0.5) mg/dL AST (12-35) U/L ALT (4-50) U/L Alkaline Phosphatase (40-150) U/L C-Reactive Protein (0.5-1.0) mg/dL Total Protein (6.0-8.3) g/dL Albumin (3.3-5.0) g/dL TSH (0.270-4.20) uIU/mL Urine Color Yellow (Yellow) Urine Appearance Clear (Clear) Urine pH 5.0 (5.0-8.5) Ur Specific [place] 1.010 (1.000-1.030) Urine Protein Negative (Negative) Urine Glucose (UA) 2+ A (Negative) Urine Ketones 3+ A (Negative) Urine Blood Negative (Negative) Urine Nitrite Negative (Negative) Urine Bilirubin Negative (Negative) Urine Urobilinogen 0.2 (0.2-1.0) Ur Leukocyte Esterase Negative (Negative) Urine RBC 0-2 (0-2) Urine WBC 0-2 (0-5) Ur Squamous Epith Cells Moderate A (None-Few) Urine Bacteria Moderate A (None) Imaging Data Abdominal x-ray: Attestation: I have reviewed the pertinent imaging results. Radiologist's impression: Two views of the abdomen were acquired Comparison: No prior plain films of the abdomen Findings: Demineralized osseous structures and degenerative changes. Surgical changes of the right hip. Vascular calcifications. Nonspecific bowel gas pattern but no direct indication of ileus, obstruction or perforation. Impression: Nonspecific bowel gas pattern but no direct plain film indications of ileus, obstruction or perforation. ECG Data Attestation: I personally reviewed and interpreted this ECG as follows: (Sinus rhythm with fusion complexes, pulse 91, incomplete right bundle-branch block) Discharge Plan Discharge Clinical Impression: Hyperglycemia Patient Disposition: Home w/ Parent or Adult Condition: Improved Additional Instructions: Continue current insulin dosing and sliding scale insulin Prescriptions: No Action aspirin 81 mg tablet,delayed release (DR/EC) 81 mg PO DAILY Hold Instructions: Resume on 09/09/22. Resume went on with Xarelto and twice a day aspirin Label Comments: TAKE ONE TABLET BY MOUTH DAILY WITH A MEAL cetirizine 10 mg tablet 10 mg PO DAILY Label Comments: TAKE 1 TABLET (10 MG) BY MOUTH ONCE DAILY. hydroxyurea 500 mg capsule 500 mg PO DAILY Label Comments: TAKE 1 CAPSULE (500 MG) BY MOUTH ONCE DAILY. montelukast 10 mg tablet 10 mg PO HS Label Comments: TAKE 1 TABLET BY MOUTH AT BEDTIME. pravastatin 80 mg tablet 80 mg PO HS Label Comments: TAKE 1 TABLET (80 MG) BY MOUTH AT BEDTIME. sennosides [Senna Lax] 8.6 mg Tablet 17.2 mg PO BID Qty: 60 0RF bisacodyl 10 mg Suppository 10 mg NE DAILY PRN (Reason: Constipation) Qty: 12 0RF albuterol sulfate [Ventolin HFA] 90 mcg/actuation Hfa Aerosol Inhaler 2 puff inhalation Q2H PRNQty: 8.5 3RF fluticasone propionate 50 mcg/actuation [place],Suspension 1 spray intranasal BID Qty: 16 0RF guaifenesin [Mucinex] 600 mg Tablet Extended Release 12hr 1,200 mg PO BID Qty: 90 0RF aspirin 81 mg tablet,delayed release (DR/EC) 81 mg PO BID Qty: 60 0RF Hold Instructions: not started yet, still on xarelto Rx Instructions: start this after you have finished Xarelto and complete 20 days of BID dosing; then go to daily dosing of aspirin Spiriva with HandiHaler 18 mcg capsule, w/inhalation device 1 cap inhalation DAILY Qty: 60 2RF Rx Instructions: puncture 1 cap using device; one dose = 2 inhalations (DME) nebulizer and compressor Device See Rx Instructions .Route Qty: 1 0RF Rx Instructions: As directed (DME) nebulizer accessories Kit See Rx Instructions .Route Qty: 1 0RF Rx Instructions: As directed acetaminophen 500 mg tablet 1,000 mg PO TID fluticasone propion-salmeterol [Advair Diskus] 500-50 mcg/dose blister with device 1 inh inhalation BID insulin aspart U-100 [Novolog FlexPen U-100 Insulin] 100 unit/mL (3 mL) insulin pen 1 sliding scale dose subcut .TIDAC Rx Instructions: GLUCOSE DOSE (UNITS) 0-200 0 201-250 1 251-300 2 301-350 3 351-400 4 >400 5 ipratropium-albuterol 0.5 mg-3 mg(2.5 mg base)/3 mL Solution For Nebulization 3 ml inhalation Q2H PRN oxycodone 5 mg Tablet 5 mg PO Q4H PRN (Reason: Pain) insulin aspart U-100 [Novolog FlexPen U-100 Insulin] 100 unit/mL (3 mL) Insulin Pen 5 unit subcut TIDWM Qty: 15 0RF lisinopril 2.5 mg tablet 2.5 mg PO DAILY Qty: 30 0RF Levemir FlexPen 100 unit/mL (3 mL) insulin pen 12 unit subcut BID Qty: 15 2RF Follow Up/Referrals: Sam Ruelas MD [Primary Care Provider] - Stand Alone Forms: [employer] Info Instructions
[2022-09-02 09:59] LABS: HCO3 VBG 22 mmol/L (21-28); PCO2 VBG 44 mmHG (40-50); PO2 VBG 35.9 mmHG (25-47); pH VBG 7.315 (7.32-7.43)
[2022-09-02 10:02] LABS: Basophils Absolute Auto 0.03 K/uL (0.00-0.30); Basophils Percent Auto 0.6 % (0.0-3.0); Eosinophils Absolute Auto 0.14 K/uL (0.00-0.50); Eosinophils Percent Auto 2.8 % (0.0-7.0); Hematocrit 38.4 % (37.0-53.0); Hemoglobin* 12.6 gm/dL (13.5-17.5); Immature Granulocytes Abs Auto 0.02 K/uL (0.00-0.30); Immature Granulocytes Pct Auto 0.4 %; Lactate* 2.2 mmol/L (0.5-1.9); Lymphocytes Absolute Auto 1.52 K/uL (0.90-2.90); Lymphocytes Percent Auto 30.6 % (20-44); Mean Corpuscular HGB Conc 33 gm/dL (32-36); Mean Corpuscular Hemoglobin 35 pg (26-34); Mean Corpuscular Volume 107 fL (80-100); Neutrophils Absolute Auto 3.16 K/uL (1.7-7.0); Neutrophils Percent Auto 63.6 % (42.0-72.0); Platelet Count* 445 K/uL (140-440); RDW Coefficient of Variation % 13.1 % (11.5-15.5); Red Blood Count 3.59 m/uL (4.30-5.90); White Blood Count* 4.97 K/uL (4.50-11.00)
[2022-09-02] MEDS: 0.9 % SODIUM CHLORIDE 1000 ml 1,000 ML IV (10:24)
[2022-09-02 10:27] LABS: Chloride* 100 mmol/L (96-114); Potassium* 4.9 mmol/L (3.6-5.1); Slide Review Reflex No; Sodium* 136 mmol/L (135-149)
[2022-09-02 10:28] LABS: Albumin* 4.3 g/dL (3.3-5.0)
[2022-09-02 10:28] LABS: Appearance Urine Clear (Clear); Bilirubin Urine Negative (Negative); Blood Urine Negative (Negative); Color Urine Yellow (Yellow); Glucose Urine 2+ (Negative); Ketones Urine 3+ (Negative); Leukocyte Esterase Urine Negative (Negative); Nitrite Urine Negative (Negative); Protein Urine Negative (Negative); Urobilinogen Urine 0.2 (0.2-1.0)
[2022-09-02 10:30] LABS: Blood Urea Nitrogen* 30 mg/dL (7-30); Carbon Dioxide* 21 mmol/L (20-32); Est. Creatinine Clearance* 62.26; Estimated Glomerular Filt Rate 77 ml/min
[2022-09-02 10:31] LABS: Alanine Aminotransferase* 41 U/L (4-50); Alkaline Phosphatase* 230 U/L (40-150); Aspartate Amino Transferase* 34 U/L (12-35); Bilirubin Direct* 0.4 mg/dL (0.0-0.5); Bilirubin Total* 0.9 mg/dL (0.1-1.5); Calcium* 9.8 mg/dL (8.4-10.6); Total Protein* 7.4 g/dL (6.0-8.3)
[2022-09-02 10:33] LABS: C Reactive Protein* 0.8 mg/dL (0.5-1.0)
[2022-09-02 10:45] LABS: Glucose* 557 mg/dL (60-115)
[2022-09-02 10:53] LABS: Bacteria Urine Moderate; RBC Urine 0-2 (0-2); Squamous Epithelial Cell Urine Moderate (None-Few); WBC Urine 0-2 (0-5)
[2022-09-02 10:53] LABS: Erythrocyte SedimentationRate* 18 mm/hr (2-15)
--- NOTE | 2022-09-02 11:01 | ED.NURSE ---
blood sugar recheck 414
--- NOTE | 2022-09-02 12:41 | ED.NURSE ---
blood sugar 240. plan to transfer back to [facility]
--- NOTE | 2022-09-02 12:58 | ED.NURSE ---
report called to [facility], [facility] nurse came and got pt
== END 2022-09-02 13:00 | disposition home or self-care (01) ==
PROVIDERS: Emergency Provider Family Medicine; PCP Family Medicine
DX: E11.65 Type 2 diabetes mellitus with hyperglycemia (principal)
CPT/HCPCS: 36415; 74019; 80048; 80076; 81001; 82803; 82962; 83605; 84443; 85025; 85651; 86140; 87086; 93005; 94761; 99284; 99285; J7030

== ENCOUNTER 2022-11-20 12:58 | Inpatient (IN) | payer MEDICAID, OTHER, SELFPAY ==
[2022-11-20 10:00] VITALS: TEMP 36.8; O2SAT 98
[2022-11-20 13:20] VITALS: BP 114/61; PULSE 58; RESP 16; TEMP 36.8; O2SAT 98
--- NOTE | 2022-11-20 14:49 | PC.NURSE ---
ADMISSION: Resident was admitted today following diabetic complications that occurred after recent discharge from [facility] to home on 11/16/22. Resident will not receive skilled services at this time and is currently MA pending.
--- NOTE | 2022-11-20 15:13 | LTC.ADM ---
LTC Admission Note: o Admit from: [facility] Med/Surg unit o Mode of transport: Wheelchair o Accompanied by: Med/surg staff o Transferred via: FWW with gait belt o Admitting dx: Hyperglycemia o Mentation: Alert & oriented x 4 o Vital Signs:B/P 114/61, P 58, R 16, T 98.3, O2 sat 98% on RA o Lung sounds: Clear o Overall condition: Stable. Resident has hx of fluctuating blood sugars due to type II DM. Blood sugar reported to be 187 before lunch. o Pain: Denies when asked with no nonverbal signs of pain noted o Mood/Behavior: Pleasant o Wound care: None o Assistance level with ADL?s: Assist of 1 with transferring and ambulation, independent with eating after setup, independent with bed mobility o Mobility: Assist of 1 o Eating: Independent after setup
[2022-11-20 15:32] LABS: SARS PCR* Negative SARS-CoV-2 (Negative)
--- NOTE | 2022-11-20 16:16 | PC.NURSE ---
Resident was admitted today from [facility] s/p hyperglycemia, ketoacidosis. Resident stay was 11/18/22 to 11/20/22. He did not have a 3 day Medicare Qualifying stay. Resident is MA pending. Resident and his sister notified.
[2022-11-20 16:35] VITALS: BP 124/56; PULSE 58; RESP 16; TEMP 36.9; O2SAT 99
--- NOTE | 2022-11-20 16:42 | PC.SOCIAL ---
Phone call to resident's [facility] Liquid [employer] Plant Operator, Melissa, at [phone]. Provided update on resident returning to [facility]. Discussed resident's MA status. Melissa informed that resident has a financial worker, Josh Tian ([phone]) and stated Josh is processing the application and the previous LTC stay with [facility] will be covered when MA is processed. Phone call to Josh Tian. Left a voicemail inquiring if MA was still pending. Recieved a voicemail from Josh Tian stating that the MA application is pending and will be reviewed as soon as possible. Provided update to nursing. Completed admission paperwork for [facility] and placed documents in resident's chart. Resident will have family do laundry. Provided update to nursing.
[2022-11-20] MEDS: MONTELUKAST 10 MG TABLET PO (20:28)
[2022-11-20] MEDS: ACETAMINOPHEN 500 MG TABLET 1000 MG PO (20:28)
[2022-11-20] MEDS: PRAVASTATIN SODIUM 40 MG TABLET 80 MG PO (20:28)
[2022-11-20 21:28] VITALS: BP 151/58; PULSE 66; RESP 18; TEMP 36.8; O2SAT 98
--- NOTE | 2022-11-20 21:56 | PC.NURSE ---
Status: Resident is resting in bed at tis time, alert and oriented per baseline, no complain of pain and denies when asked, vitals are stable, HS blood glucose is 60, snacks and juice given, skin checks done and Resident does have rashes on bilateral lower extremities, also fluids filled blisters noted to bilateral heels, heels protectors applied.
--- NOTE | 2022-11-20 22:42 | PC.NURSE ---
Status: Resident did verbalize that he voided once this afternoon
[2022-11-21 01:17] VITALS: BP 119/63; PULSE 72; RESP 16; TEMP 36.8; O2SAT 97
[2022-11-21 05:16] VITALS: BP 130/60; PULSE 88; RESP 16; TEMP 37.1; O2SAT 91
[2022-11-21] MEDS: ACETAMINOPHEN 500 MG TABLET 1000 MG PO ×3 (07:25→20:07)
[2022-11-21] MEDS: guaiFENesin 600 MG TAB.ER.12H 1200 MG PO ×2 (07:47→16:39)
[2022-11-21] MEDS: SENNOSIDES 1 TAB TABLET 2 TAB PO ×2 (07:47→16:39)
[2022-11-21] MEDS: FLUTICASONE PROPIONATE NASAL 1 SPRAY NOSTRIL-B ×2 (07:47→16:38)
[2022-11-21] MEDS: ASPIRIN 81 MG TABLET EC PO (07:47)
[2022-11-21] MEDS: HYDROXYUREA 500 MG CAPSULE PO (07:47)
[2022-11-21] MEDS: FLUTICASONE PROPION SALMETEROL 1 EACH IH ×2 (07:47→16:38)
[2022-11-21] MEDS: Tiotropium Bromide [Spiriva With Handihaler] 18 mcg capsule 1 EACH IH (07:47)
[2022-11-21] MEDS: CETIRIZINE HCL 10 MG TABLET PO (07:48)
[2022-11-21 09:00] VITALS: BP 99/66; PULSE 69; RESP 18; TEMP 37; O2SAT 96
--- NOTE | 2022-11-21 09:01 | PC.NURSE ---
Order: Received written order from Dr. Churchill. Insulin Parameters Novolog: Blood Glucose Dose 150 or less No Coverage 151 - 200 2 Unit 201 - 250 4 Units 251 - 300 6 Units 301 - 350 8 Units 351 - 400 10Units 401 and greater 12 Units and draw glucose. Call MD, then recheck in 2 hours.
[2022-11-21 09:32] VITALS: TEMP 37; O2SAT 96
[2022-11-21 09:33] VITALS: TEMP 37; O2SAT 96
[2022-11-21 13:00] VITALS: BP 112/66; PULSE 60; RESP 16; TEMP 36.3; O2SAT 98
[2022-11-21 15:36] VITALS: BMI 23.4
[2022-11-21] MEDS: INSULIN LISPRO 100 UNIT/ML VIAL 14 UNIT SUBCUT (18:06)
[2022-11-21] MEDS: PRAVASTATIN SODIUM 40 MG TABLET 80 MG PO (20:08)
[2022-11-21] MEDS: MONTELUKAST 10 MG TABLET PO (20:08)
--- NOTE | 2022-11-21 22:13 | PC.NURSE ---
advertising copywriter observed +1 pitting edema to bilateral lower extremities, elevated patient's heels in recliner. Educated resident on benefits of elevating extremities.
--- NOTE | 2022-11-22 07:00 | PC.NURSE ---
WEEKLY CHARTING WEEK 1 PAIN AND ADL`S Vital signs reviewed with no concerns. Temporary and comprehensive care plan reviewed - no change. Resident denies any pain when asked, he is receiving Acetaminophen 1000mg TID for pain management which is effective. Independent with ADLs. Assist of 1 with bathing. Diabetic diet with regular textures and thin liquids. Eats independently after setup. Resident reports he is able to chew most foods. Has difficulty with some items d/t dental status. Denies any difficulty swallowing.
[2022-11-22] MEDS: ACETAMINOPHEN 500 MG TABLET 1000 MG PO ×3 (08:15→19:39)
[2022-11-22] MEDS: guaiFENesin 600 MG TAB.ER.12H 1200 MG PO ×2 (08:16→15:54)
[2022-11-22] MEDS: HYDROXYUREA 500 MG CAPSULE PO (08:16)
[2022-11-22] MEDS: FLUTICASONE PROPION SALMETEROL 1 EACH IH ×2 (08:16→15:54)
[2022-11-22] MEDS: FLUTICASONE PROPIONATE NASAL 1 SPRAY NOSTRIL-B ×2 (08:16→15:54)
[2022-11-22] MEDS: ASPIRIN 81 MG TABLET EC PO (08:16)
[2022-11-22] MEDS: Tiotropium Bromide [Spiriva With Handihaler] 18 mcg capsule 1 EACH IH (08:17)
[2022-11-22] MEDS: SENNOSIDES 1 TAB TABLET 2 TAB PO ×2 (08:17→15:54)
[2022-11-22] MEDS: CETIRIZINE HCL 10 MG TABLET PO (08:17)
[2022-11-22] MEDS: INSULIN LISPRO 100 UNIT/ML VIAL SUBCUT ×2 (08:21→17:01)
[2022-11-22] MEDS: INSULIN LISPRO 100 UNIT/ML VIAL 14 UNIT SUBCUT ×3 (08:25→17:02)
[2022-11-22 08:31] LABS: SARS PCR* Negative SARS-CoV-2 (Negative)
--- NOTE | 2022-11-22 08:56 | PC.SPIRITC ---
I provided brief check in with Rossy; he expressed having some pain in his heels he is dealing with along with excitement about [employer] car show.
--- NOTE | 2022-11-22 16:06 | PC.NURSE ---
Weekly, Week 1: Temporary and permanent careplan reviewed and remains intact, vitals stable, Resident is alert and oriented x 4, continue on blood glucose monitoring QID with schedule and sliding scale insulin given, need assist of one with bathing, dressing and grooming set up assist with oral cares, continue on diabetic diet set up assist with meals and able to feed self, no swallowing problem or choking episode noted.
[2022-11-22] MEDS: PRAVASTATIN SODIUM 40 MG TABLET 80 MG PO (19:39)
[2022-11-22] MEDS: MONTELUKAST 10 MG TABLET PO (19:39)
[2022-11-23] MEDS: ACETAMINOPHEN 500 MG TABLET 1000 MG PO ×3 (07:15→19:49)
[2022-11-23] MEDS: HYDROXYUREA 500 MG CAPSULE PO (07:15)
[2022-11-23] MEDS: FLUTICASONE PROPION SALMETEROL 1 EACH IH ×2 (07:15→16:47)
[2022-11-23] MEDS: SENNOSIDES 1 TAB TABLET 2 TAB PO ×2 (07:15→16:48)
[2022-11-23] MEDS: guaiFENesin 600 MG TAB.ER.12H 1200 MG PO ×2 (07:15→16:48)
[2022-11-23] MEDS: FLUTICASONE PROPIONATE NASAL 1 SPRAY NOSTRIL-B ×2 (07:15→16:48)
[2022-11-23] MEDS: ASPIRIN 81 MG TABLET EC PO (07:15)
[2022-11-23] MEDS: CETIRIZINE HCL 10 MG TABLET PO (07:16)
[2022-11-23] MEDS: Tiotropium Bromide [Spiriva With Handihaler] 18 mcg capsule 1 EACH IH (07:16)
[2022-11-23] MEDS: INSULIN LISPRO 100 UNIT/ML VIAL 14 UNIT SUBCUT ×2 (08:48→12:45)
--- NOTE | 2022-11-23 11:39 | PC.NURSE ---
MD Visit: Resident seen by Dr. Ruelas. Accu checks reviewed, sliding scale Humalog adjusted, OT for repeat cognitive screen, Change Levimir to 26 U QAM, & D/C HS dose, decrease Novolog to 10 U TID AC, do not leave freestyle jeremy device at bedside, nursing should manage. Next Saturday, check BMP & CBC, update.next week with his accu checks.
--- NOTE | 2022-11-23 13:08 | PC.NURSE ---
Blood sugar: Blood sugar this morning was 68 with OJ and sandwich given, rechecked 15 minutes later and was 82. Blood sugar at lunch was 53, again given OJ and sandwich, rechecked at 81. MD aware of low blood sugars.
[2022-11-23] MEDS: INSULIN LISPRO 100 UNIT/ML VIAL 10 UNIT SUBCUT (17:17)
[2022-11-23] MEDS: MONTELUKAST 10 MG TABLET PO (19:49)
[2022-11-23] MEDS: PRAVASTATIN SODIUM 40 MG TABLET 80 MG PO (19:49)
[2022-11-24] MEDS: ACETAMINOPHEN 500 MG TABLET 1000 MG PO ×3 (07:38→19:45)
[2022-11-24] MEDS: guaiFENesin 600 MG TAB.ER.12H 1200 MG PO ×2 (07:39→15:45)
[2022-11-24] MEDS: FLUTICASONE PROPION SALMETEROL 1 EACH IH ×2 (07:39→15:45)
[2022-11-24] MEDS: ASPIRIN 81 MG TABLET EC PO (07:39)
[2022-11-24] MEDS: FLUTICASONE PROPIONATE NASAL 1 SPRAY NOSTRIL-B ×2 (07:39→15:45)
[2022-11-24] MEDS: HYDROXYUREA 500 MG CAPSULE PO (07:40)
[2022-11-24] MEDS: SENNOSIDES 1 TAB TABLET 2 TAB PO ×2 (07:40→15:45)
[2022-11-24] MEDS: Tiotropium Bromide [Spiriva With Handihaler] 18 mcg capsule 1 EACH IH (07:40)
[2022-11-24] MEDS: CETIRIZINE HCL 10 MG TABLET PO (07:40)
[2022-11-24 08:09] LABS: SARS PCR* Negative SARS-CoV-2 (Negative)
[2022-11-24] MEDS: INSULIN LISPRO 100 UNIT/ML VIAL SUBCUT (08:37)
[2022-11-24] MEDS: INSULIN LISPRO 100 UNIT/ML VIAL 10 UNIT SUBCUT ×3 (08:37→17:25)
--- NOTE | 2022-11-24 12:45 | PC.NURSE ---
Covid day 5 swab test done and sent to lab. Results were negative
[2022-11-24] MEDS: MONTELUKAST 10 MG TABLET PO (19:45)
[2022-11-24] MEDS: PRAVASTATIN SODIUM 40 MG TABLET 80 MG PO (19:45)
[2022-11-25] MEDS: FLUTICASONE PROPIONATE NASAL 1 SPRAY NOSTRIL-B ×2 (07:18→15:27)
[2022-11-25] MEDS: FLUTICASONE PROPION SALMETEROL 1 EACH IH ×2 (07:18→15:27)
[2022-11-25] MEDS: SENNOSIDES 1 TAB TABLET 2 TAB PO ×2 (07:18→15:27)
[2022-11-25] MEDS: HYDROXYUREA 500 MG CAPSULE PO (07:18)
[2022-11-25] MEDS: ASPIRIN 81 MG TABLET EC PO (07:18)
[2022-11-25] MEDS: guaiFENesin 600 MG TAB.ER.12H 1200 MG PO ×2 (07:18→15:27)
[2022-11-25] MEDS: ACETAMINOPHEN 500 MG TABLET 1000 MG PO ×3 (07:18→19:49)
[2022-11-25] MEDS: CETIRIZINE HCL 10 MG TABLET PO (07:19)
[2022-11-25] MEDS: Tiotropium Bromide [Spiriva With Handihaler] 18 mcg capsule 1 EACH IH (07:19)
[2022-11-25] MEDS: INSULIN LISPRO 100 UNIT/ML VIAL SUBCUT (08:38)
[2022-11-25] MEDS: INSULIN LISPRO 100 UNIT/ML VIAL 10 UNIT SUBCUT ×3 (08:38→17:12)
--- NOTE | 2022-11-25 09:42 | PC.NURSE ---
Skin: Was noted on skin check with bath that resident has open areas on bilateral knees, one scabbed over about 0.5cm on the L knee and one measuring 3.5cm x 1.5cm on the R knee, with resident stating it happened at home. Area on R knee washed with wound cleanser and left open to air, intervention set up to monitor.
[2022-11-25 09:51] VITALS: BP 140/66; PULSE 73; RESP 18; TEMP 37.1; O2SAT 97
[2022-11-25] MEDS: MONTELUKAST 10 MG TABLET PO (19:49)
[2022-11-25] MEDS: PRAVASTATIN SODIUM 40 MG TABLET 80 MG PO (19:49)
[2022-11-26] MEDS: FLUTICASONE PROPIONATE NASAL 1 SPRAY NOSTRIL-B ×2 (07:39→15:38)
[2022-11-26] MEDS: ACETAMINOPHEN 500 MG TABLET 1000 MG PO ×3 (07:39→20:02)
[2022-11-26] MEDS: ASPIRIN 81 MG TABLET EC PO (07:39)
[2022-11-26] MEDS: FLUTICASONE PROPION SALMETEROL 1 EACH IH ×2 (07:39→15:38)
[2022-11-26] MEDS: HYDROXYUREA 500 MG CAPSULE PO (07:40)
[2022-11-26] MEDS: guaiFENesin 600 MG TAB.ER.12H 1200 MG PO ×2 (07:40→15:38)
[2022-11-26] MEDS: SENNOSIDES 1 TAB TABLET 2 TAB PO ×2 (07:41→15:38)
[2022-11-26] MEDS: Tiotropium Bromide [Spiriva With Handihaler] 18 mcg capsule 1 EACH IH (07:41)
[2022-11-26] MEDS: CETIRIZINE HCL 10 MG TABLET PO (07:41)
[2022-11-26] MEDS: INSULIN LISPRO 100 UNIT/ML VIAL 10 UNIT SUBCUT ×3 (08:26→17:05)
[2022-11-26] MEDS: INSULIN LISPRO 100 UNIT/ML VIAL SUBCUT (08:26)
--- NOTE | 2022-11-26 13:47 | PC.NURSE ---
This pattern chart writer checked resident's blood sugar using the dexcon and using a finger stick and reading was within 2
[2022-11-26] MEDS: MONTELUKAST 10 MG TABLET PO (20:02)
[2022-11-26] MEDS: PRAVASTATIN SODIUM 40 MG TABLET 80 MG PO (20:02)
--- NOTE | 2022-11-26 21:34 | PC.NURSE ---
blood suger: 16:00 bg = 94. snack of yogurt, pudding, juice, cookies given. 17:00 bg = 140. 20:00 bg = 216. Snack of yogurt, juice, pudding, crackers given
[2022-11-27 07:30] LABS: Basophils Absolute Auto 0.01 K/uL (0.00-0.30); Basophils Percent Auto 0.2 % (0.0-3.0); Eosinophils Absolute Auto 0.28 K/uL (0.00-0.50); Eosinophils Percent Auto 6.2 % (0.0-7.0); Hematocrit 30.2 % (37.0-53.0); Hemoglobin* 9.9 gm/dL (13.5-17.5); Immature Granulocytes Abs Auto 0.02 K/uL (0.00-0.30); Immature Granulocytes Pct Auto 0.4 %; Lymphocytes Percent Auto 44.2 % (20-44); Mean Corpuscular HGB Conc 33 gm/dL (32-36); Mean Corpuscular Hemoglobin 36 pg (26-34); Mean Corpuscular Volume 109 fL (80-100); Monocytes Percent Auto 2.7 % (0.0-11.0); Neutrophils Absolute Auto 2.09 K/uL (1.7-7.0); Neutrophils Percent Auto 46.3 % (42.0-72.0); Platelet Count* 263 K/uL (140-440); RDW Coefficient of Variation % 12.9 % (11.5-15.5); Red Blood Count 2.78 m/uL (4.30-5.90); White Blood Count* 4.52 K/uL (4.50-11.00)
[2022-11-27] MEDS: ASPIRIN 81 MG TABLET EC PO (07:32)
[2022-11-27] MEDS: ACETAMINOPHEN 500 MG TABLET 1000 MG PO ×3 (07:32→20:02)
[2022-11-27] MEDS: FLUTICASONE PROPIONATE NASAL 1 SPRAY NOSTRIL-B ×2 (07:34→16:14)
[2022-11-27] MEDS: FLUTICASONE PROPION SALMETEROL 1 EACH IH ×2 (07:34→16:14)
[2022-11-27] MEDS: guaiFENesin 600 MG TAB.ER.12H 1200 MG PO ×2 (07:34→16:14)
[2022-11-27] MEDS: SENNOSIDES 1 TAB TABLET 2 TAB PO ×2 (07:35→16:14)
[2022-11-27] MEDS: Tiotropium Bromide [Spiriva With Handihaler] 18 mcg capsule 1 EACH IH (07:35)
[2022-11-27] MEDS: HYDROXYUREA 500 MG CAPSULE PO (07:35)
[2022-11-27 07:37] LABS: Slide Review Reflex No
[2022-11-27 07:38] LABS: Chloride* 102 mmol/L (96-114); Potassium* 4.4 mmol/L (3.6-5.1); Sodium* 134 mmol/L (135-149)
[2022-11-27] MEDS: INSULIN LISPRO 100 UNIT/ML VIAL SUBCUT ×3 (07:38→17:30)
[2022-11-27] MEDS: CETIRIZINE HCL 10 MG TABLET PO (07:40)
[2022-11-27 07:41] LABS: Blood Urea Nitrogen* 21 mg/dL (7-30); Carbon Dioxide* 27 mmol/L (20-32); Creatinine* 0.8 mg/dL (0.5-1.5); Estimated Glomerular Filt Rate 90 ml/min
[2022-11-27 07:42] LABS: Calcium* 8.6 mg/dL (8.4-10.6)
[2022-11-27 07:45] LABS: Glucose* 386 mg/dL (60-115)
[2022-11-27] MEDS: INSULIN LISPRO 100 UNIT/ML VIAL 10 UNIT SUBCUT ×3 (08:02→17:30)
--- NOTE | 2022-11-27 13:00 | PC.NURSE ---
Blood Sugar: Resident's 11am blood sugar was HIGH, recheck with Unit Accu check machine and result was still same. Insulin was given as per sliding scale. Staff will continue to monitor meals given to resident.
--- NOTE | 2022-11-27 14:32 | PC.NURSE ---
CARE CONFERENCE: Admission. All members of the IDT present. Resident present. Residents sister Joyce and brother Boo are present. Nursing: Resident is mostly independent in the unit, calls for assistance as needed. Resident to continue using CGM at this time as it is covered by his insurance, though per Dr. Ruelas resident to keep the monitor in the medication cart. BS's continue to be labile. Was recently switched from Novolog to Humalog due to insurance reasons. Resident is doing well. He denies any concern though he notes that he continues to be nervous about his blood sugars because they go high and low so sporadically. Resident states that he keeps snacks at his bedside in case he goes low. I make the nurses nervous. Provided therapeutic communication and reassurance. Resident did have an appointment last month with second facing baster, no significant changes were made. Resident will be going to follow up appointment at [facility] soon - brother to transport. Resident also notes he has an appt with oncologist and needs blood work done again which we had done previously. This is due December 25--this nurse has made a note in the REMOTE BROADCAST ENGINEER book regarding this. Is going out with family on December 09--was added to calendar at nurses station. SW: reviewed mood assessment--is stable with no concerns. MA is still pending. Activities: enjoys patio time, bingo, and recently enjoyed the car cruise. Participation is good. No concerns. Dietary: Continue diabetic diet. Focus on more protein vs. carbs. Resident would like to know what he can order from the ala carte menu--network systems engineer will follow up on this due to new process starting soon. Resident is DNR/DNI, no changes to POLST or code status. Resident is considered a vulnerable adult due to need for medication management and lack of ability to care for himself. Uses no restraints.
[2022-11-27 14:58] VITALS: RESP 18; TEMP 37.1
--- NOTE | 2022-11-27 14:58 | PC.SOCIAL ---
Resident's care conference was held today with resident, resident's sister and brother, and all members of the team present. Resident briefly discharged home 11/16, ended up back in the hospital 11/18, and re-admitted here 11/20. Resident is stable and plans to stay here apprentice and does not want to try discharging home again. Family is supportive and visits daily. Residents mood remain stable no s/s of depression noted. A [id number] form was sent to [employer] Financial worker notifying her of resident's re-admit.
[2022-11-27] MEDS: MONTELUKAST 10 MG TABLET PO (20:02)
[2022-11-27] MEDS: PRAVASTATIN SODIUM 40 MG TABLET 80 MG PO (20:03)
[2022-11-28] MEDS: FLUTICASONE PROPION SALMETEROL 1 EACH IH ×2 (08:07→15:49)
[2022-11-28] MEDS: guaiFENesin 600 MG TAB.ER.12H 1200 MG PO ×2 (08:07→15:50)
[2022-11-28] MEDS: FLUTICASONE PROPIONATE NASAL 1 SPRAY NOSTRIL-B ×2 (08:07→15:49)
[2022-11-28] MEDS: ASPIRIN 81 MG TABLET EC PO (08:07)
[2022-11-28] MEDS: ACETAMINOPHEN 500 MG TABLET 1000 MG PO ×3 (08:07→20:08)
[2022-11-28] MEDS: HYDROXYUREA 500 MG CAPSULE PO (08:08)
[2022-11-28] MEDS: SENNOSIDES 1 TAB TABLET 2 TAB PO ×2 (08:10→15:50)
[2022-11-28] MEDS: Tiotropium Bromide [Spiriva With Handihaler] 18 mcg capsule 1 EACH IH (08:10)
[2022-11-28] MEDS: CETIRIZINE HCL 10 MG TABLET PO (08:10)
[2022-11-28] MEDS: INSULIN LISPRO 100 UNIT/ML VIAL SUBCUT ×4 (08:11→17:15)
[2022-11-28] MEDS: INSULIN LISPRO 100 UNIT/ML VIAL 10 UNIT SUBCUT ×3 (08:12→17:08)
--- NOTE | 2022-11-28 14:36 | PC.SPIRITC ---
Entry from November 27, 2022: Rossy talked about being readmitted and liking it at the [facility], especially bingo and time on the patio. I provided visit for connection and support.
[2022-11-28] MEDS: MONTELUKAST 10 MG TABLET PO (20:08)
[2022-11-28] MEDS: PRAVASTATIN SODIUM 40 MG TABLET 80 MG PO (20:08)
--- NOTE | 2022-11-28 22:05 | PC.NURSE ---
Addendum entered by Klaudia Pyle 11/28/22 22:32: Order: Give 4 units Humalog NOW one-time dose. Original Note: Order: Blood Glucose: Resident's blood sugar reading Hi @ 1700. Scheduled 10 units of Humalog given with additional sliding scale of 14 units. Given at 1730. Resident ate supper, and rechecked reading Hi again. Call made to [facility] regarding blood sugar. Order: Give 4 units and push water for the evening, per Nohelia Graff NP. Telephone Order-Read Back. Rechecked at 20:00 and 21:30 and blood glucose continues to read Hi. Ferry Hand let oncoming nurse know.
--- NOTE | 2022-11-29 00:14 | PC.NURSE ---
Weekly Charting: Week 2 Reviewed resident's recent vital signs. Blood pressure occasionally runs high, nursing will continue to monitor weekly and update provider as needed. Reviewed temporary and comprehensive care plans, as of 11/28/2022 Resident may now use Delroy sensor to monitor blood glucose levels. No other changes made/noted. Resident is independent with transfers, ambulates with walker. Able to get in and out of bed and reposition themselves as needed. Right 1/4 side rail up at all times to promote independent self-repositioning. No other assistive devices needed for mobility. Resident is at low risk for falls. Interventions to prevent falls include keeping bed locked and in low position with call light in reach and non skid footwear. Resident is not on ambulation or ROM programs at this time.
--- NOTE | 2022-11-29 02:44 | PC.NURSE ---
Received report from evening shift that resident's blood sugar was reading high since 1730. 2200 resident had a moderate watery emesis. Rechecked blood sugar, reading still said high. Encouraged fluid intake and using the restroom. Rechecked blood sugar again at 0135 and the reading still said high. Resident had another moderate amount of watery emesis. Checked vital signs BP 181/ 67, T 98.7, P 91, O2 96%, RR 18. Nursing called [facility] conduit installer provider, Roxana Farfan, gave telephone order to send to ED. Nursing called primary contact Joyce Villa who agreed to send resident to ED for hyperglycemia. Joyce said they are unable to visit resident in ED tonight, but will try to come in the morning. Around 0154, warehouse helper Annabelle Wynn came to picker resident in wheelchair.
--- NOTE | 2022-11-29 10:47 | PC.NURSE ---
Order: Bilateral 1/4 side rails to reach/manage bed controls and for independence with repositioning by Sandy MILLS.
--- NOTE | 2022-11-30 21:00 | PC.NURSE ---
MDS CLARIFICATION: Discrepancies suspected in BENJAMIN ADL charting. Staff were interviewed. Ambulation in eason ? during the lookback resident did require supervision and limited assistance. Resident was never dependent on staff, this staff notes she meant to code independent. Resident coded supervision. Dressing- resident required staff supervision for the first two days after admission. Coded supervision.
--- NOTE | 2022-12-02 11:30 | LTC.ADM ---
LTC Admission Note: o Admit from: Med /Surg o Mode of transport: Wheel chair o Accompanied by: Nurse o Transferred via: 1 Assist o Admitting dx: Diabetic Ketoacidosis with pneumonia o Mentation: Alert o Vital Signs: T97.8,P68,BP 122/70, R 18 and 2 98 o Lung sounds: clear o Overall condition: good o Pain: Denies pain o Mood/Behavior: Normal o Wound care: blister both heel o Assistance level with ADL?s: 1 assist, walk independently o Mobility: Able to transfer himself o Eating: Diabetic diet
[2022-12-02] MEDS: levoFLOXacin 500 MG TABLET PO (13:31)
[2022-12-02 13:56] VITALS: BP 122/70; PULSE 68; RESP 20; TEMP 36.6; O2SAT 98
--- NOTE | 2022-12-02 15:44 | PC.NURSE ---
Resident`s blood sugar at 12noon was 272 and he was given 4 unit of sliding dose.
[2022-12-02] MEDS: SENNOSIDES 1 TAB TABLET 2 TAB PO (16:05)
[2022-12-02] MEDS: FLUTICASONE PROPIONATE NASAL 1 SPRAY NOSTRIL-B (16:05)
[2022-12-02] MEDS: FLUTICASONE PROPION SALMETEROL 1 EACH IH (16:05)
[2022-12-02] MEDS: guaiFENesin 600 MG TAB.ER.12H 1200 MG PO (16:05)
[2022-12-02 16:10] LABS: PCR FLU A Negative PCR FLU A (Negative); PCR FLU B Negative PCR FLU B (Negative)
[2022-12-02 16:12] LABS: SARS PCR* Negative SARS-CoV-2 (Negative)
[2022-12-02 16:13] VITALS: BP 149/68; PULSE 66; TEMP 36.3; O2SAT 99
[2022-12-02] MEDS: INSULIN LISPRO 100 UNIT/ML VIAL SUBCUT (17:11)
[2022-12-02] MEDS: ACETAMINOPHEN 500 MG TABLET 1000 MG PO (19:43)
[2022-12-02] MEDS: MONTELUKAST 10 MG TABLET PO (19:44)
[2022-12-02] MEDS: PRAVASTATIN SODIUM 40 MG TABLET 80 MG PO (19:44)
[2022-12-02 21:00] VITALS: BP 134/78; PULSE 75; RESP 18; TEMP 36.4; O2SAT 98
[2022-12-03 01:00] VITALS: BP 153/71; PULSE 92; RESP 18; TEMP 37; O2SAT 96
[2022-12-03 04:35] VITALS: BP 154/74; PULSE 58; RESP 18; TEMP 36.7; O2SAT 97
--- NOTE | 2022-12-03 04:36 | PC.NURSE ---
ICU returns Resident was monitored during night, vitals and others cares. BS 121 at 0100 and BS 63 at 0430. Dawes juice and snack were given, will recheck in an hour . He did not complain about any discomfort or pain. He was sweaty, when hypoglycemic but alert and oriented.
[2022-12-03] MEDS: HYDROXYUREA 500 MG CAPSULE PO (07:20)
[2022-12-03] MEDS: ACETAMINOPHEN 500 MG TABLET 1000 MG PO ×3 (07:20→20:04)
[2022-12-03] MEDS: FLUTICASONE PROPION SALMETEROL 1 EACH IH ×2 (07:20→16:13)
[2022-12-03] MEDS: guaiFENesin 600 MG TAB.ER.12H 1200 MG PO ×2 (07:20→16:14)
[2022-12-03] MEDS: ASPIRIN 81 MG TABLET EC PO (07:20)
[2022-12-03] MEDS: FLUTICASONE PROPIONATE NASAL 1 SPRAY NOSTRIL-B ×2 (07:20→16:13)
[2022-12-03] MEDS: Tiotropium Bromide [Spiriva With Handihaler] 18 mcg capsule 1 EACH IH (07:20)
[2022-12-03] MEDS: CETIRIZINE HCL 10 MG TABLET PO (07:21)
[2022-12-03] MEDS: SENNOSIDES 1 TAB TABLET 2 TAB PO ×2 (07:21→16:14)
[2022-12-03] MEDS: INSULIN LISPRO 100 UNIT/ML VIAL SUBCUT (07:45)
[2022-12-03 09:00] VITALS: BP 137/77; PULSE 79; RESP 18; TEMP 36.6; O2SAT 96
--- NOTE | 2022-12-03 12:41 | PC.NURSE ---
Resident returned from [facility] on 12/02/22 s/p hyperglycemia and pneumonia. Resident is receiving an oral antibiotic. Nurses will monitor his temperature and lungs. Spoke to UR and felt this is snf care, discussed with therapy and they declined picking him up due to baseline of care.
[2022-12-03 12:47] VITALS: TEMP 36.8
[2022-12-03] MEDS: levoFLOXacin 500 MG TABLET PO (13:12)
--- NOTE | 2022-12-03 14:13 | PC.NURSE ---
appointment: Resident left with sister for ortho appointment
--- NOTE | 2022-12-03 17:43 | PC.NURSE ---
Resident returned to facility 16:00. No new orders. Sister did not receive any paperwork. Sister reports ortho doctor does not need see resident again. [facility] in [place] wants these results on December 25 appt. [facility], CMP, Odell Mars. [facility] [place] = [phone]
[2022-12-03] MEDS: MONTELUKAST 10 MG TABLET PO (20:05)
[2022-12-03] MEDS: PRAVASTATIN SODIUM 40 MG TABLET 80 MG PO (20:05)
--- NOTE | 2022-12-03 20:52 | PC.NURSE ---
Insulin order: Confusion over Levemir orders saying administer bid @ 0800, 1600, d/c HS. With those orders, resident would be receiving 2 insulins @ 16:00. Triage notified for clarification. Per Jennifer Delgado: Give Levemir bid @ 0800 and 20:00, d/c 16:00 dose. 20:30 today, 12/03/22, Levemir was not administered @ 16:00 and was administered @ 20:00 per CNC SPECIALIST orders.
--- NOTE | 2022-12-04 07:47 | PC.NURSE ---
Readmit Covid day 3 swab test done and sent to lab. Resident will be notified if result is positive.
[2022-12-04] MEDS: ACETAMINOPHEN 500 MG TABLET 1000 MG PO ×3 (08:10→20:36)
[2022-12-04] MEDS: ASPIRIN 81 MG TABLET EC PO (08:11)
[2022-12-04] MEDS: guaiFENesin 600 MG TAB.ER.12H 1200 MG PO ×2 (08:12→16:31)
[2022-12-04] MEDS: FLUTICASONE PROPIONATE NASAL 1 SPRAY NOSTRIL-B ×2 (08:12→16:30)
[2022-12-04] MEDS: Tiotropium Bromide [Spiriva With Handihaler] 18 mcg capsule 1 EACH IH (08:12)
[2022-12-04] MEDS: FLUTICASONE PROPION SALMETEROL 1 EACH IH ×2 (08:12→16:30)
[2022-12-04] MEDS: SENNOSIDES 1 TAB TABLET 2 TAB PO ×2 (08:12→16:31)
[2022-12-04] MEDS: HYDROXYUREA 500 MG CAPSULE PO (08:12)
[2022-12-04] MEDS: CETIRIZINE HCL 10 MG TABLET PO (08:13)
[2022-12-04] MEDS: INSULIN LISPRO 100 UNIT/ML VIAL SUBCUT (08:22)
[2022-12-04 08:23] LABS: SARS PCR* Negative SARS-CoV-2 (Negative)
[2022-12-04 09:52] VITALS: TEMP 36.3
--- NOTE | 2022-12-04 09:57 | PC.NURSE ---
Skin/wound note: This morning creative services writer noted old Mepilex sacrum border dressing in place to coccyx with dried sanguineous drainage observed to old dressing. When creative services writer removed dressing superficial shearing with moisture was noted to intergluteal cleft. Printmaker cleansed area with wound cleanser before patting dry. Skin noted to be reddened with darker red intact skin noted to R buttock measuring approximately 5 cm x 7 cm in size resembling suspected deep tissue injury. Resident states area has been sore since he was up on Med/surg unit. Printmaker applied skin prep to surrounding area, allowed to dry and covered area with Mepilex sacrum border dressing to keep skin clean and dry. Previously intact blister to R heel also noted to be opening up at top of blister though no drainage observed. Area cleansed with wound cleanser before patting dry and applying skin prep to surrounding area. Blister to left heel noted to be intact this morning with skin prep applied to protect area. Resident able to reposition independently in bed and has heel protectors in room to wear when in bed. Printmaker ensured resident had removed his shoes after returning from breakfast. He is resting in recliner at this time. dry lumber grader, DON and PROCUREMENT MANAGER updated regarding current skin concerns.
[2022-12-04] MEDS: levoFLOXacin 500 MG TABLET PO (12:03)
--- NOTE | 2022-12-04 13:01 | PC.NURSE ---
Order by STRATEGIC PARTNER DEVELOPMENT MANAGERSandy: Okay to change Novolog to Humalog when Novolog supply is gone. Continue with same dose. Okay to use freestyle jeremy for blood glucose monitoring. Change sensor q 14 days. Coccyx wound and blisters on (R) & (L) heel viewed. Apply sensicare to abrasion on coccyx with john cares. No dressing necessary - area is not pressure related. Continue skin prep to blister on (L) heel BID. Update STRATEGIC PARTNER DEVELOPMENT MANAGER if blister opens. Apply Mepilex to open blister on (R) heel. Change every 3 days. Update STRATEGIC PARTNER DEVELOPMENT MANAGER if worsens or if healed.
--- NOTE | 2022-12-04 13:16 | PC.NURSE ---
Side rail assessment/Providers Orders/Informed consent Completed side rail utilization assessment, RBVO right bed rail up always to promote independence/positioning. Requested by resident. DX: Diabetes per Jennifer Delgado NP. Bed rail informed consent form signed and filed. FDA side rail pamphlet given to resident at this time. Intervention in place/Care plan and care sheets updated.
--- NOTE | 2022-12-04 13:29 | PC.NURSE ---
Assessed wounds with SURFACE HYDROLOGIST. See wound assessment for details on wounds. New orders as follows: Apply sensicare BID to open area on coccyx. Apply skin prep QD to intact blister on L heel. Apply mepilex to open blister on R heel, change q3days.
[2022-12-04] MEDS: PRAVASTATIN SODIUM 40 MG TABLET 80 MG PO (20:36)
[2022-12-04] MEDS: MONTELUKAST 10 MG TABLET PO (20:36)
[2022-12-05 05:32] VITALS: TEMP 36.4
[2022-12-05] MEDS: ACETAMINOPHEN 500 MG TABLET 1000 MG PO ×3 (08:02→20:06)
[2022-12-05] MEDS: ASPIRIN 81 MG TABLET EC PO (08:02)
[2022-12-05] MEDS: guaiFENesin 600 MG TAB.ER.12H 1200 MG PO ×2 (08:03→15:32)
[2022-12-05] MEDS: FLUTICASONE PROPION SALMETEROL 1 EACH IH ×2 (08:03→15:32)
[2022-12-05] MEDS: FLUTICASONE PROPIONATE NASAL 1 SPRAY NOSTRIL-B ×2 (08:03→15:32)
[2022-12-05] MEDS: SENNOSIDES 1 TAB TABLET 2 TAB PO ×2 (08:03→15:32)
[2022-12-05] MEDS: HYDROXYUREA 500 MG CAPSULE PO (08:03)
[2022-12-05] MEDS: Tiotropium Bromide [Spiriva With Handihaler] 18 mcg capsule 1 EACH IH (08:04)
[2022-12-05] MEDS: CETIRIZINE HCL 10 MG TABLET PO (08:04)
[2022-12-05] MEDS: levoFLOXacin 500 MG TABLET PO (12:00)
[2022-12-05] MEDS: MONTELUKAST 10 MG TABLET PO (20:06)
[2022-12-05] MEDS: PRAVASTATIN SODIUM 40 MG TABLET 80 MG PO (20:06)
--- NOTE | 2022-12-05 21:56 | PC.NURSE ---
Resident's blood sugar reading at 1630 was 67. Asymptomatic of hypoglycemia. Camper Assembler gave 4 oz of apple juice, 1/2 ham sandwich. Rechecked at 1700 and reading was 88. Camper Assembler assessed blood glucose at 1715 prior to administering insulin with meal and reading was 153. Scheduled insulin administered.
[2022-12-06 05:00] VITALS: TEMP 36.9
[2022-12-06] MEDS: ACETAMINOPHEN 500 MG TABLET 1000 MG PO ×3 (08:07→20:27)
[2022-12-06] MEDS: SENNOSIDES 1 TAB TABLET 2 TAB PO ×2 (08:09→16:12)
[2022-12-06] MEDS: guaiFENesin 600 MG TAB.ER.12H 1200 MG PO ×2 (08:09→16:12)
[2022-12-06] MEDS: FLUTICASONE PROPIONATE NASAL 1 SPRAY NOSTRIL-B ×2 (08:09→16:11)
[2022-12-06] MEDS: Tiotropium Bromide [Spiriva With Handihaler] 18 mcg capsule 1 EACH IH (08:09)
[2022-12-06] MEDS: CETIRIZINE HCL 10 MG TABLET PO (08:09)
[2022-12-06] MEDS: ASPIRIN 81 MG TABLET EC PO (08:09)
[2022-12-06] MEDS: FLUTICASONE PROPION SALMETEROL 1 EACH IH ×2 (08:09→16:11)
[2022-12-06] MEDS: HYDROXYUREA 500 MG CAPSULE PO (08:09)
[2022-12-06] MEDS: INSULIN LISPRO 100 UNIT/ML VIAL SUBCUT ×2 (08:17→11:47)
[2022-12-06 10:47] LABS: SARS PCR* Negative SARS-CoV-2 (Negative)
[2022-12-06] MEDS: levoFLOXacin 500 MG TABLET PO (12:03)
--- NOTE | 2022-12-06 12:26 | PC.NURSE ---
Blood Sugar: Blood sugar result at 0800 was High, sliding dose insulin was given as per protocol.
--- NOTE | 2022-12-06 19:54 | PC.NURSE ---
Weekly Charting: Week 3: Temporary and permanent care plan reviewed and no changes made, vitals remains stable, dark bruises noted to left upper extremity from IV insertion while in ER, redness to coccyx with sensicare cream applied, mepilex border dressing applied to right heel open blister and skin prep applied to intact blister on left heel also fading bruises noted to abdomen from insulin injections, continent of bowel and bladder uses pullups and independent to the bath room.
[2022-12-06] MEDS: PRAVASTATIN SODIUM 40 MG TABLET 80 MG PO (20:28)
[2022-12-06] MEDS: MONTELUKAST 10 MG TABLET PO (20:28)
[2022-12-07 05:00] VITALS: TEMP 36.6
[2022-12-07] MEDS: ACETAMINOPHEN 500 MG TABLET 1000 MG PO ×3 (07:26→19:29)
[2022-12-07] MEDS: HYDROXYUREA 500 MG CAPSULE PO (07:26)
[2022-12-07] MEDS: guaiFENesin 600 MG TAB.ER.12H 1200 MG PO ×2 (07:26→16:31)
[2022-12-07] MEDS: ASPIRIN 81 MG TABLET EC PO (07:26)
[2022-12-07] MEDS: FLUTICASONE PROPION SALMETEROL 1 EACH IH ×2 (07:26→16:31)
[2022-12-07] MEDS: FLUTICASONE PROPIONATE NASAL 1 SPRAY NOSTRIL-B ×2 (07:26→16:31)
[2022-12-07] MEDS: CETIRIZINE HCL 10 MG TABLET PO (07:27)
[2022-12-07] MEDS: SENNOSIDES 1 TAB TABLET 2 TAB PO ×2 (07:27→16:31)
[2022-12-07] MEDS: Tiotropium Bromide [Spiriva With Handihaler] 18 mcg capsule 1 EACH IH (07:27)
--- NOTE | 2022-12-07 12:58 | PC.NURSE ---
Blood Sugars: Lunch time blood sugar was 67 with no s/s of hypoglycemia. Was given a sandwich and orange juice and rechecked 15 minutes later and was 74. Was sent to lunch, rechecked at 137 with insulin given.
[2022-12-07] MEDS: levoFLOXacin 500 MG TABLET PO (13:03)
[2022-12-07] MEDS: INSULIN LISPRO 100 UNIT/ML VIAL SUBCUT (17:13)
[2022-12-07] MEDS: MONTELUKAST 10 MG TABLET PO (19:29)
[2022-12-07] MEDS: PRAVASTATIN SODIUM 40 MG TABLET 80 MG PO (19:29)
[2022-12-07 21:57] VITALS: TEMP 37
[2022-12-08] MEDS: HYDROXYUREA 500 MG CAPSULE PO (07:18)
[2022-12-08] MEDS: FLUTICASONE PROPIONATE NASAL 1 SPRAY NOSTRIL-B ×2 (07:18→15:53)
[2022-12-08] MEDS: Tiotropium Bromide [Spiriva With Handihaler] 18 mcg capsule 1 EACH IH (07:18)
[2022-12-08] MEDS: FLUTICASONE PROPION SALMETEROL 1 EACH IH ×2 (07:18→15:53)
[2022-12-08] MEDS: ASPIRIN 81 MG TABLET EC PO (07:18)
[2022-12-08] MEDS: ACETAMINOPHEN 500 MG TABLET 1000 MG PO ×3 (07:18→19:44)
[2022-12-08] MEDS: guaiFENesin 600 MG TAB.ER.12H 1200 MG PO ×2 (07:18→15:54)
[2022-12-08] MEDS: SENNOSIDES 1 TAB TABLET 2 TAB PO ×2 (07:18→15:54)
[2022-12-08] MEDS: CETIRIZINE HCL 10 MG TABLET PO (07:19)
[2022-12-08] MEDS: INSULIN LISPRO 100 UNIT/ML VIAL SUBCUT (07:30)
[2022-12-08 10:07] VITALS: TEMP 36.3
--- NOTE | 2022-12-08 12:45 | PC.NURSE ---
Addendum entered by Rhona Smith LPN 12/08/22 12:51: Water was encouraged with resident also. Original Note: Blood sugar: Blood sugar this morning was noted to be 500 with no s/s of hyperglycemia noted and sliding scale insulin given. Blood sugar at lunch was 173. Dexcom was changed this shift also
[2022-12-08] MEDS: MONTELUKAST 10 MG TABLET PO (19:44)
[2022-12-08] MEDS: PRAVASTATIN SODIUM 40 MG TABLET 80 MG PO (19:44)
[2022-12-09] MEDS: FLUTICASONE PROPION SALMETEROL 1 EACH IH ×2 (07:00→15:47)
[2022-12-09] MEDS: ACETAMINOPHEN 500 MG TABLET 1000 MG PO ×3 (07:00→20:22)
[2022-12-09] MEDS: ASPIRIN 81 MG TABLET EC PO (07:00)
[2022-12-09] MEDS: FLUTICASONE PROPIONATE NASAL 1 SPRAY NOSTRIL-B ×2 (07:00→15:47)
[2022-12-09] MEDS: guaiFENesin 600 MG TAB.ER.12H 1200 MG PO ×2 (07:01→15:47)
[2022-12-09] MEDS: HYDROXYUREA 500 MG CAPSULE PO (07:01)
[2022-12-09] MEDS: CETIRIZINE HCL 10 MG TABLET PO (07:02)
[2022-12-09] MEDS: Tiotropium Bromide [Spiriva With Handihaler] 18 mcg capsule 1 EACH IH (07:02)
[2022-12-09] MEDS: SENNOSIDES 1 TAB TABLET 2 TAB PO ×2 (07:02→15:48)
[2022-12-09 09:44] VITALS: BP 116/63; PULSE 66; RESP 18; TEMP 36.8; O2SAT 99; BMI 22.1
--- NOTE | 2022-12-09 10:15 | PC.NURSE ---
Skin: Was noted that groin is red, note left for BYPRODUCTS SUPERVISOR for nystatin powder
[2022-12-09] MEDS: MONTELUKAST 10 MG TABLET PO (20:22)
[2022-12-09] MEDS: PRAVASTATIN SODIUM 40 MG TABLET 80 MG PO (20:22)
[2022-12-10] MEDS: ACETAMINOPHEN 500 MG TABLET 1000 MG PO ×3 (07:06→20:03)
[2022-12-10] MEDS: ASPIRIN 81 MG TABLET EC PO (07:06)
[2022-12-10] MEDS: FLUTICASONE PROPION SALMETEROL 1 EACH IH ×2 (07:06→15:30)
[2022-12-10] MEDS: SENNOSIDES 1 TAB TABLET 2 TAB PO ×2 (07:07→15:30)
[2022-12-10] MEDS: CETIRIZINE HCL 10 MG TABLET PO (07:07)
[2022-12-10] MEDS: FLUTICASONE PROPIONATE NASAL 1 SPRAY NOSTRIL-B ×2 (07:07→15:30)
[2022-12-10] MEDS: guaiFENesin 600 MG TAB.ER.12H 1200 MG PO ×2 (07:07→15:30)
[2022-12-10] MEDS: HYDROXYUREA 500 MG CAPSULE PO (07:07)
[2022-12-10] MEDS: Tiotropium Bromide [Spiriva With Handihaler] 18 mcg capsule 1 EACH IH (07:07)
[2022-12-10] MEDS: INSULIN LISPRO 100 UNIT/ML VIAL 10 UNIT SUBCUT ×3 (07:28→17:13)
[2022-12-10] MEDS: INSULIN LISPRO 100 UNIT/ML VIAL SUBCUT ×2 (07:28→07:32)
--- NOTE | 2022-12-10 09:40 | PC.NURSE ---
Resident returned from hospital with abrasion to his coccyx and heel blistered that are opening. I ordered an alternating air mattress for his bed through [facility].
--- NOTE | 2022-12-10 12:53 | PC.NURSE ---
Status: Resident has switched to using underwear from pull ups.
[2022-12-10] MEDS: MONTELUKAST 10 MG TABLET PO (20:04)
[2022-12-10] MEDS: PRAVASTATIN SODIUM 40 MG TABLET 80 MG PO (20:04)
[2022-12-11] MEDS: guaiFENesin 600 MG TAB.ER.12H 1200 MG PO ×2 (08:03→15:44)
[2022-12-11] MEDS: FLUTICASONE PROPIONATE NASAL 1 SPRAY NOSTRIL-B ×2 (08:03→15:43)
[2022-12-11] MEDS: ACETAMINOPHEN 500 MG TABLET 1000 MG PO ×3 (08:03→20:32)
[2022-12-11] MEDS: FLUTICASONE PROPION SALMETEROL 1 EACH IH ×2 (08:03→15:43)
[2022-12-11] MEDS: ASPIRIN 81 MG TABLET EC PO (08:03)
[2022-12-11] MEDS: HYDROXYUREA 500 MG CAPSULE PO (08:04)
[2022-12-11] MEDS: SENNOSIDES 1 TAB TABLET 2 TAB PO ×2 (08:04→15:45)
[2022-12-11] MEDS: Tiotropium Bromide [Spiriva With Handihaler] 18 mcg capsule 1 EACH IH (08:04)
[2022-12-11] MEDS: CETIRIZINE HCL 10 MG TABLET PO (08:05)
[2022-12-11] MEDS: INSULIN LISPRO 100 UNIT/ML VIAL SUBCUT (08:21)
[2022-12-11] MEDS: INSULIN LISPRO 100 UNIT/ML VIAL 10 UNIT SUBCUT ×3 (08:21→18:40)
--- NOTE | 2022-12-11 10:50 | PC.NURSE ---
Status/Order: HOME ECONOMICS TEACHER, Sandy here. Red groin noted. Nystatin powder BID.
--- NOTE | 2022-12-11 12:28 | PC.NURSE ---
Blood glucose note: Resident's blood glucose noted to be 57 per Dexcom when checked before lunch today. He was then given 4 oz orange juice. Blood glucose noted to be 56 after approximately 15 minutes when rechecked. Resident was then given 4 oz grape juice and yogurt snack. Resident denied hypoglycemia symptoms when asked with no signs noted. Blood glucose noted to be 71 when checked approximately 15 minutes later. He was then given scheduled Humalog and went to lunch where he has eaten 100% of meal. UNDERWRITING SUPPORT SPECIALIST Jennifer Delgado updated regarding two hypoglycemic blood glucose readings as UNDERWRITING SUPPORT SPECIALIST visiting [facility] today. Nursing to continue to observe.
[2022-12-11] MEDS: PRAVASTATIN SODIUM 40 MG TABLET 80 MG PO (20:32)
[2022-12-11] MEDS: MONTELUKAST 10 MG TABLET PO (20:32)
[2022-12-12] MEDS: NYSTATIN POWDER 1 APPLIC TOPICAL ×2 (07:49→16:28)
[2022-12-12] MEDS: FLUTICASONE PROPIONATE NASAL 1 SPRAY NOSTRIL-B ×2 (07:50→16:07)
[2022-12-12] MEDS: FLUTICASONE PROPION SALMETEROL 1 EACH IH ×2 (07:50→16:07)
[2022-12-12] MEDS: Tiotropium Bromide [Spiriva With Handihaler] 18 mcg capsule 1 EACH IH (07:51)
[2022-12-12] MEDS: ACETAMINOPHEN 500 MG TABLET 1000 MG PO ×3 (07:57→20:00)
[2022-12-12] MEDS: ASPIRIN 81 MG TABLET EC PO (07:57)
[2022-12-12] MEDS: CETIRIZINE HCL 10 MG TABLET PO (07:58)
[2022-12-12] MEDS: SENNOSIDES 1 TAB TABLET 2 TAB PO ×2 (07:58→16:07)
[2022-12-12] MEDS: guaiFENesin 600 MG TAB.ER.12H 1200 MG PO ×2 (07:58→16:07)
[2022-12-12] MEDS: HYDROXYUREA 500 MG CAPSULE PO (07:58)
[2022-12-12] MEDS: INSULIN LISPRO 100 UNIT/ML VIAL 10 UNIT SUBCUT ×3 (08:20→17:22)
--- NOTE | 2022-12-12 09:12 | PC.PHA1 ---
PRODUCT ACCOUNTANT PHARMACIST'S MEDICATION REVIEW: MEDICATION MONITORING:No psychotropic medications currently ordered. Levofloxacin regimen in November post hospital stay. IRREGULARITY OR COMMENTS: Patient discharged to home and returned shortly to ED with high blood sugars. Short and long insulin doses continue to be adjusted. MD recently ordered Dex Com to be moved away from patient bedside due to patient's cognitive decline. Hematology appointment scheduled for 12/14/22, and patient taking Hydroxyurea for polycythemia vera. SUGGESTED COURSE OF ACTION TAKEN: For the hematology appointment, could family please share with specialist that patient's blood sugar challenges as hydroxyurea has been know to cause blood sugar fluctuations.
--- NOTE | 2022-12-12 16:26 | PC.SPIRITC ---
Per Rossy's brother and sister he is pannicularly ornery right now. Rossy's siblings expressed that Rossy seems to be grieving reality that he can no longer live alone. I provided time for family to talk about how their visit went and the changes they are helping Rossy navigate right now. I will provide 1:1 visit with Rossy for support as well.
[2022-12-12] MEDS: INSULIN LISPRO 100 UNIT/ML VIAL SUBCUT (17:23)
[2022-12-12] MEDS: PRAVASTATIN SODIUM 40 MG TABLET 80 MG PO (20:00)
[2022-12-12] MEDS: MONTELUKAST 10 MG TABLET PO (20:00)
--- NOTE | 2022-12-12 22:35 | PC.NURSE ---
Resident refused john-cares and nystatin powder this evening. Attempted to reapproach and refused again. Educated resident on hygiene and risk for skin breakdown.
--- NOTE | 2022-12-12 22:36 | PC.NURSE ---
Blood Glucose: Dexcom reading at 2000 is Hi. Resident asymptomatic of hyperglycemia. Scheduled Levemir 15 units given. Encouraged resident to push fluids. Filled pink water pitcher. Rechecked dexcom at 2100 and continues to read Hi. Refilled water pitcher and encouraged resident to drink another water pitcher. Resident continues to be asymptomatic of hyperglycemia. Rechecked @ 2155 and still continues to read Hi. Oncoming nurse is aware of readings and will follow up.
--- NOTE | 2022-12-13 00:53 | PC.NURSE ---
Weekly Charting Week 4; Vital signs reviewed, Vitals within normal with the exception of unstable blood glucose reading. WALLPAPER HANGER HELPER aware. Continue to check BG qid, Notify provided as need. Comprehensive and temporary care plan reviewed with no changes made. behavior recorded that Resident refuse john cares. Staff educated to to good PeriCare r/t redness on the groin. Not on any Psychotropic medication. No changes in communication, hearing, vision, or orientation. Resident able to communicate needs verbally. Hearing adequate. Has hx of mild cognitive impairment with some forgetfulness. Vision impairment corrected by glasses. Health condition is stable.
--- NOTE | 2022-12-13 05:50 | PC.NURSE ---
Blood sugar reading at 2330 was 489 with the use of manual glucometer. Resident is stable no signs of hyperglycemia. Encourage fluid intake. Res refused to be awaken to check blood sugar at [facility]. At 05:50 RN re approach Res to check blood sugar. Res allowed to check by using the manual not the dexcom. Reading HI. Will inform AM nurse.
--- NOTE | 2022-12-13 07:00 | PC.NURSE ---
Weekly Charting, Week 4: Baseline care plan reviewed. No changes and nothing added to temporary care plan. Resident does communicate needs and use the call light.Hears normal tones. Visual impairment corrected with glasses. Alert, oriented per his baseline. Nurse administers all medications. Vital signs reviewed, with few elevated BP's. Continue weekly monitoring and refer to providers as needed. Has noted unstable blood sugar readings. Accu checks monitored closely and Insulin adjustment done as needed by providers. All medications administered by Nurse. Mood/Behavior: No issues documented. Is on no psychotropic medications.
[2022-12-13] MEDS: INSULIN LISPRO 100 UNIT/ML VIAL SUBCUT ×3 (07:16→17:09)
[2022-12-13] MEDS: guaiFENesin 600 MG TAB.ER.12H 1200 MG PO ×2 (07:16→15:45)
[2022-12-13] MEDS: INSULIN LISPRO 100 UNIT/ML VIAL 10 UNIT SUBCUT ×3 (07:16→17:09)
[2022-12-13] MEDS: FLUTICASONE PROPIONATE NASAL 1 SPRAY NOSTRIL-B ×2 (07:16→15:45)
[2022-12-13] MEDS: ASPIRIN 81 MG TABLET EC PO (07:16)
[2022-12-13] MEDS: FLUTICASONE PROPION SALMETEROL 1 EACH IH ×2 (07:16→15:45)
[2022-12-13] MEDS: ACETAMINOPHEN 500 MG TABLET 1000 MG PO ×3 (07:16→20:15)
[2022-12-13] MEDS: Tiotropium Bromide [Spiriva With Handihaler] 18 mcg capsule 1 EACH IH (07:17)
[2022-12-13] MEDS: HYDROXYUREA 500 MG CAPSULE PO (07:17)
[2022-12-13] MEDS: SENNOSIDES 1 TAB TABLET 2 TAB PO ×2 (07:17→15:45)
[2022-12-13] MEDS: CETIRIZINE HCL 10 MG TABLET PO (07:17)
[2022-12-13] MEDS: NYSTATIN POWDER 1 APPLIC TOPICAL ×2 (07:17→20:16)
--- NOTE | 2022-12-13 12:48 | PC.NURSE ---
status: Blood sugar this morning was noted to be high on both dexcon and finger poke with insulin given. Rechecked at 584. Encouraged water. Resident has small emesis this morning also. Lunch blood sugar was 300.
[2022-12-13] MEDS: MONTELUKAST 10 MG TABLET PO (20:15)
[2022-12-13] MEDS: PRAVASTATIN SODIUM 40 MG TABLET 80 MG PO (20:16)
--- NOTE | 2022-12-13 20:22 | PC.NURSE ---
Assessed wounds with CUSTOMER OPERATIONS INTERN. See wound assessment for complete details on wounds. R heel blister had foul odor and small amount of serosanguineous drainage present. Wound bed cleansed with wound cleanser and dried flap of skin removed by CUSTOMER OPERATIONS INTERN. New orders for R heel dressing as follows: Cleanse wound bed with wound cleanser, apply sensicare to edges of wound bed, apply alginate ag and cover with sacral mepilex, Change q2days. L heel blister intact, and boggy. New order apply with sacral mepliex and change q2days. Shearing wound to coccyx nearly closed. Continue to apply Sensicare BID.
--- NOTE | 2022-12-13 22:34 | PC.NURSE ---
Resident has open area measuring 2cm x 2cm near sacrum. Observed shearing and noted minimal sloughing. Cleansed area with wound cleanser and 4x4 mepilex border applied. Noted in DOCUMENT IMPROVEMENT SPECIALIST book.
[2022-12-14] MEDS: ASPIRIN 81 MG TABLET EC PO (07:56)
[2022-12-14] MEDS: FLUTICASONE PROPION SALMETEROL 1 EACH IH ×2 (07:56→16:04)
[2022-12-14] MEDS: FLUTICASONE PROPIONATE NASAL 1 SPRAY NOSTRIL-B ×2 (07:56→16:04)
[2022-12-14] MEDS: HYDROXYUREA 500 MG CAPSULE PO (07:56)
[2022-12-14] MEDS: guaiFENesin 600 MG TAB.ER.12H 1200 MG PO ×2 (07:56→16:05)
[2022-12-14] MEDS: ACETAMINOPHEN 500 MG TABLET 1000 MG PO ×3 (07:56→20:07)
[2022-12-14] MEDS: CETIRIZINE HCL 10 MG TABLET PO (07:57)
[2022-12-14] MEDS: Tiotropium Bromide [Spiriva With Handihaler] 18 mcg capsule 1 EACH IH (07:57)
[2022-12-14] MEDS: SENNOSIDES 1 TAB TABLET 2 TAB PO ×2 (07:57→16:05)
[2022-12-14] MEDS: INSULIN LISPRO 100 UNIT/ML VIAL SUBCUT ×3 (08:25→16:53)
[2022-12-14] MEDS: INSULIN LISPRO 100 UNIT/ML VIAL 10 UNIT SUBCUT ×4 (08:25→21:21)
[2022-12-14] MEDS: NYSTATIN POWDER 1 APPLIC TOPICAL ×2 (08:26→20:07)
--- NOTE | 2022-12-14 13:28 | PC.NURSE ---
High BS : Resident BS was High at 0800 using sensor ( 550 using accu check) and was also HIgh at noon ( 540 using accu check).He was asymptomatic both times and he was given insulin sliding scale as scheduled.
[2022-12-14] MEDS: MONTELUKAST 10 MG TABLET PO (20:07)
[2022-12-14] MEDS: PRAVASTATIN SODIUM 40 MG TABLET 80 MG PO (20:07)
--- NOTE | 2022-12-14 21:40 | PC.NURSE ---
Resident blood glucose is reading HI before supper, 14 units sliding scale and 10 unit schedule humalog given recheck and still HI, also HS glucose is reading HI, alert and oriented per baseline no signs and symptoms of hypoglycemia noted ,bonus clerk LOOKBACK COORDINATOR called and updated and order gotten for additional 10 units of humalog.
[2022-12-15] MEDS: NYSTATIN POWDER 1 APPLIC TOPICAL ×2 (07:58→19:47)
[2022-12-15] MEDS: ASPIRIN 81 MG TABLET EC PO (08:11)
[2022-12-15] MEDS: ACETAMINOPHEN 500 MG TABLET 1000 MG PO ×3 (08:11→19:47)
[2022-12-15] MEDS: FLUTICASONE PROPIONATE NASAL 1 SPRAY NOSTRIL-B ×2 (08:12→15:20)
[2022-12-15] MEDS: guaiFENesin 600 MG TAB.ER.12H 1200 MG PO ×2 (08:12→15:20)
[2022-12-15] MEDS: FLUTICASONE PROPION SALMETEROL 1 EACH IH ×2 (08:12→15:20)
[2022-12-15] MEDS: HYDROXYUREA 500 MG CAPSULE PO (08:12)
[2022-12-15] MEDS: SENNOSIDES 1 TAB TABLET 2 TAB PO ×2 (08:12→15:20)
[2022-12-15] MEDS: CETIRIZINE HCL 10 MG TABLET PO (08:13)
[2022-12-15] MEDS: Tiotropium Bromide [Spiriva With Handihaler] 18 mcg capsule 1 EACH IH (08:13)
[2022-12-15] MEDS: INSULIN LISPRO 100 UNIT/ML VIAL 10 UNIT SUBCUT ×3 (08:19→17:31)
--- NOTE | 2022-12-15 11:30 | PC.NURSE ---
Blood glucose note: Blood glucose of 76 at this time. Resident currently taking 4 oz glass of grape juice to avoid hypoglycemia with lunch.
[2022-12-15] MEDS: PRAVASTATIN SODIUM 40 MG TABLET 80 MG PO (19:47)
[2022-12-15] MEDS: MONTELUKAST 10 MG TABLET PO (19:47)
[2022-12-16] MEDS: NYSTATIN POWDER 1 APPLIC TOPICAL ×2 (07:54→20:12)
[2022-12-16 08:00] VITALS: BMI 20.9
[2022-12-16] MEDS: ACETAMINOPHEN 500 MG TABLET 1000 MG PO ×3 (08:04→20:12)
[2022-12-16] MEDS: ASPIRIN 81 MG TABLET EC PO (08:04)
[2022-12-16] MEDS: FLUTICASONE PROPION SALMETEROL 1 EACH IH ×2 (08:05→15:50)
[2022-12-16] MEDS: Tiotropium Bromide [Spiriva With Handihaler] 18 mcg capsule 1 EACH IH (08:05)
[2022-12-16] MEDS: CETIRIZINE HCL 10 MG TABLET PO (08:05)
[2022-12-16] MEDS: FLUTICASONE PROPIONATE NASAL 1 SPRAY NOSTRIL-B ×2 (08:05→15:50)
[2022-12-16] MEDS: HYDROXYUREA 500 MG CAPSULE PO (08:05)
[2022-12-16] MEDS: guaiFENesin 600 MG TAB.ER.12H 1200 MG PO ×2 (08:05→15:50)
[2022-12-16] MEDS: SENNOSIDES 1 TAB TABLET 2 TAB PO ×2 (08:05→15:50)
[2022-12-16] MEDS: INSULIN LISPRO 100 UNIT/ML VIAL 10 UNIT SUBCUT ×3 (08:22→17:13)
[2022-12-16 09:24] VITALS: BP 102/63; PULSE 79; RESP 16; TEMP 36.2; O2SAT 100
--- NOTE | 2022-12-16 11:11 | PC.NURSE ---
Blood glucose note: Blood glucose of 72 noted at this time though resident reports he just ate 100% of muffin for snack.
[2022-12-16 12:04] VITALS: BMI 21.5
--- NOTE | 2022-12-16 12:06 | PC.NURSE ---
Weight loss note: Weight of 154 obtained unclothed on tub scale this morning. Reweigh completed with weight of 159 clothed noted on standing scale. Advertising Editor has left note in AUDIT LEAD binder providing update of weight loss noted over the last week as last week's weight was noted to be 163.
--- NOTE | 2022-12-16 16:49 | PC.SPIRITC ---
Stitchdown Thread Laster provided supportive visit to resident. Resident is adjusting to no longer being able to drive and moving out of his apartment and into the [facility] long[facility]term. Resident really likes the [facility] and the activities provided here while also missing being able to drive to watch his nieces play softball and the Horace Bent play baseball. Resident is grateful for the support of his brother and sister who visit him regularly. 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 Resident belongs to the [employer] in [place] and says he prays every night that he will wake up alive. Resident is not afraid of but hopes to live a lot longer if possible. Resident's own father is going to be turning 100 soon. Stitchdown Thread Laster provided emotional support, validation and prayer.
[2022-12-16] MEDS: INSULIN LISPRO 100 UNIT/ML VIAL SUBCUT (17:12)
[2022-12-16] MEDS: PRAVASTATIN SODIUM 40 MG TABLET 80 MG PO (20:12)
[2022-12-16] MEDS: MONTELUKAST 10 MG TABLET PO (20:12)
[2022-12-17] MEDS: NYSTATIN POWDER 1 APPLIC TOPICAL ×2 (07:25→20:49)
[2022-12-17] MEDS: FLUTICASONE PROPION SALMETEROL 1 EACH IH ×2 (07:47→15:54)
[2022-12-17] MEDS: ACETAMINOPHEN 500 MG TABLET 1000 MG PO ×3 (07:47→20:38)
[2022-12-17] MEDS: guaiFENesin 600 MG TAB.ER.12H 1200 MG PO ×2 (07:47→15:54)
[2022-12-17] MEDS: FLUTICASONE PROPIONATE NASAL 1 SPRAY NOSTRIL-B ×2 (07:47→15:54)
[2022-12-17] MEDS: ASPIRIN 81 MG TABLET EC PO (07:47)
[2022-12-17] MEDS: CETIRIZINE HCL 10 MG TABLET PO (07:48)
[2022-12-17] MEDS: HYDROXYUREA 500 MG CAPSULE PO (07:48)
[2022-12-17] MEDS: SENNOSIDES 1 TAB TABLET 2 TAB PO ×2 (07:48→15:53)
[2022-12-17] MEDS: Tiotropium Bromide [Spiriva With Handihaler] 18 mcg capsule 1 EACH IH (07:49)
[2022-12-17] MEDS: INSULIN LISPRO 100 UNIT/ML VIAL 10 UNIT SUBCUT ×3 (08:12→17:16)
--- NOTE | 2022-12-17 12:36 | PC.NURSE ---
Blood glucose note: Resident's blood glucose noted to be 53 before lunch. No signs of hypoglycemia noted with resident denying symptoms when asked. 4 oz grape juice administered along with yogurt snack. When reassessed approximately 20 minutes later blood glucose had only increased to 65. Zyglo Technician then gave 4 oz orange juice. Blood glucose of 79 upon reassessment approximately 15 minutes later. Resident was then given scheduled insulin and sent to lunch where he has had 100% food intake. molecular biology professor aware. Nursing to continue to observe.
--- NOTE | 2022-12-17 13:57 | PC.NURSE ---
Skin/wound note: Dressing to right heel noted to be clean, dry and intact today. Automotive Exhaust Emissions Technician noted scant amount of dried serosanguinous drainage to dressing covering L heel. Automotive Exhaust Emissions Technician removed dressing and noted that blister to L heel is starting to open up. Automotive Exhaust Emissions Technician cleansed area with wound cleanser, applied Alginate dressing to cover open area and covered with sacral Mepilex dressing. Automotive Exhaust Emissions Technician left note in MANAGER DATA binder to provide update for provider. No s/sx of infection observed to L heel. electrical tester updated. Resident's tennis shoes are off at this time. Automotive Exhaust Emissions Technician reminded resident to only wear tennis shoes when ambulating, otherwise gripper socks should be worn to help heal current wounds.
[2022-12-17] MEDS: MONTELUKAST 10 MG TABLET PO (20:49)
[2022-12-17] MEDS: PRAVASTATIN SODIUM 40 MG TABLET 80 MG PO (20:49)
[2022-12-18] MEDS: guaiFENesin 600 MG TAB.ER.12H 1200 MG PO ×2 (07:43→16:05)
[2022-12-18] MEDS: FLUTICASONE PROPIONATE NASAL 1 SPRAY NOSTRIL-B ×2 (07:43→16:05)
[2022-12-18] MEDS: FLUTICASONE PROPION SALMETEROL 1 EACH IH ×2 (07:43→16:05)
[2022-12-18] MEDS: HYDROXYUREA 500 MG CAPSULE PO (07:43)
[2022-12-18] MEDS: ACETAMINOPHEN 500 MG TABLET 1000 MG PO ×3 (07:43→19:57)
[2022-12-18] MEDS: ASPIRIN 81 MG TABLET EC PO (07:43)
[2022-12-18] MEDS: Tiotropium Bromide [Spiriva With Handihaler] 18 mcg capsule 1 EACH IH (07:44)
[2022-12-18] MEDS: CETIRIZINE HCL 10 MG TABLET PO (07:44)
[2022-12-18] MEDS: SENNOSIDES 1 TAB TABLET 2 TAB PO ×2 (07:44→16:05)
[2022-12-18] MEDS: NYSTATIN POWDER 1 APPLIC TOPICAL ×2 (07:59→21:47)
[2022-12-18] MEDS: INSULIN LISPRO 100 UNIT/ML VIAL 10 UNIT SUBCUT ×3 (08:25→17:18)
[2022-12-18] MEDS: INSULIN LISPRO 100 UNIT/ML VIAL SUBCUT (17:18)
[2022-12-18] MEDS: MONTELUKAST 10 MG TABLET PO (19:58)
[2022-12-18] MEDS: PRAVASTATIN SODIUM 40 MG TABLET 80 MG PO (19:58)
[2022-12-19] MEDS: FLUTICASONE PROPION SALMETEROL 1 EACH IH ×2 (07:29→16:31)
[2022-12-19] MEDS: HYDROXYUREA 500 MG CAPSULE PO (07:29)
[2022-12-19] MEDS: ASPIRIN 81 MG TABLET EC PO (07:29)
[2022-12-19] MEDS: guaiFENesin 600 MG TAB.ER.12H 1200 MG PO ×2 (07:29→16:31)
[2022-12-19] MEDS: FLUTICASONE PROPIONATE NASAL 1 SPRAY NOSTRIL-B ×2 (07:29→16:31)
[2022-12-19] MEDS: ACETAMINOPHEN 500 MG TABLET 1000 MG PO ×3 (07:29→20:35)
[2022-12-19] MEDS: NYSTATIN POWDER 1 APPLIC TOPICAL ×2 (07:29→20:35)
[2022-12-19] MEDS: Tiotropium Bromide [Spiriva With Handihaler] 18 mcg capsule 1 EACH IH (07:30)
[2022-12-19] MEDS: SENNOSIDES 1 TAB TABLET 2 TAB PO ×2 (07:30→16:31)
[2022-12-19] MEDS: CETIRIZINE HCL 10 MG TABLET PO (07:30)
[2022-12-19] MEDS: INSULIN LISPRO 100 UNIT/ML VIAL 10 UNIT SUBCUT ×3 (08:05→17:17)
[2022-12-19] MEDS: INSULIN LISPRO 100 UNIT/ML VIAL SUBCUT ×2 (08:05→11:48)
--- NOTE | 2022-12-19 09:04 | PC.NURSE ---
Health status note: Blood glucose of 566 before breakfast this morning. Water was encouraged and insulins were given per current orders in place. Resident went to dining room for breakfast and had one episode of emesis after taking one bite of breakfast. Staff then assisted resident back to his room with breakfast food and drinks. Temp noted to be 98.2 Blood glucose has decreased to 458. RUBY ENGINEER Jennifer Delgado has been notified regarding today's blood sugars as well as hypoglycemia before lunch on 12/17/22. Resident resting at this time, states he is unable to eat at this time though staff will continue to encourage breakfast as tolerated.
--- NOTE | 2022-12-19 11:09 | PC.NURSE ---
(L) & (R) heel open blisters seen by Sandy MILLS. Dressing changes changed to Q48H from Q2days, same dressing supplies.
--- NOTE | 2022-12-19 11:34 | PC.NURSE ---
Per SHAPER AND PRESSER, Sandy update PCP with blood sugars over 500.
--- NOTE | 2022-12-19 14:09 | NUTR.NU ---
RDN met with resident and his family in room on this day to discuss protein options for heel blisters that are opened. Resident reports a good appetite and p.o. intakes at meals and snacks. With good intakes and snack at HS resident is on average getting ~95 grams of protein daily. This exceeds his current estimated protein requirements. Resident would like to continue current meal and snack regimen. No changes to be made at this time per resident and family request. RDN will continue to monitor.
[2022-12-19] MEDS: MONTELUKAST 10 MG TABLET PO (20:35)
[2022-12-19] MEDS: PRAVASTATIN SODIUM 40 MG TABLET 80 MG PO (20:35)
--- NOTE | 2022-12-19 22:40 | PC.NURSE ---
Freestyle Delroy placed on resident's posterior region of left upper arm. Removed GSM from posterior right upper arm. Fingerstick protocol initiated for Q12HRs from when new device is placed. Fingerstick done @ 2000 BS check.
--- NOTE | 2022-12-20 01:22 | PC.NURSE ---
WEEKLY CHARTING WEEK 1: PAIN AND ADL`S Vitals normal overall , concerns is that resident can get hypoglycemic or hyperglycemic on any given time. Comprehensive care plan , no change. Temporary care plan reviewed, bilateral 1/4 side rails up for bed mobility and repositioning.?Skin issues, coccyx, bilateral heel blisters,scab to bilateral knees need attention to heal. Resident is extensive assist 1 with dressing, bathing;? Limited assist for grooming, Oral hygiene needs to Set up only.? Resident is on Diabetic diet, regular thin liquid. Eats independently after set up, no swallowing problem. Pain: Res? right hip surgical? pain control with scheduled acetaminophen 1000 TID. Current pain regime seems to be effective.
--- NOTE | 2022-12-20 07:01 | PC.NURSE ---
Weekly Charting, Week 1 - ADL's: Baseline and temporary care plan reviewed. No changes made, and nothing added to temporary care plan.Resident needs limited assist with dressing, grooming. He can be independent as well. One assist with bathing. Does own oral cares. Feed self after set up. Is on diabetic diet, regular texture, thin liquids. No problems with swallowing/chewing reported. Vital signs reviewed. BP's varies. Blood sugars continues to be very unstable. Lately, readings mostly on highs. CLARIFYING PLANT OPERATOR here and accu checks reviewed. Order to update PCP for blood sugar above 500. Continue with accu checks QID & PRN and Insulins. VS weekly and refer to provider as needed. Pain: Has no complain of pain. Receives Tylenol 1000 mg TID and is effective for pain control. Resident is able to verbalize need for pain and staff also anticipates.
[2022-12-20] MEDS: NYSTATIN POWDER 1 APPLIC TOPICAL ×2 (07:44→19:40)
[2022-12-20] MEDS: guaiFENesin 600 MG TAB.ER.12H 1200 MG PO ×2 (08:05→16:20)
[2022-12-20] MEDS: FLUTICASONE PROPION SALMETEROL 1 EACH IH ×2 (08:05→16:20)
[2022-12-20] MEDS: FLUTICASONE PROPIONATE NASAL 1 SPRAY NOSTRIL-B ×2 (08:05→16:20)
[2022-12-20] MEDS: ACETAMINOPHEN 500 MG TABLET 1000 MG PO ×3 (08:05→19:40)
[2022-12-20] MEDS: ASPIRIN 81 MG TABLET EC PO (08:05)
[2022-12-20] MEDS: Tiotropium Bromide [Spiriva With Handihaler] 18 mcg capsule 1 EACH IH (08:06)
[2022-12-20] MEDS: CETIRIZINE HCL 10 MG TABLET PO (08:06)
[2022-12-20] MEDS: SENNOSIDES 1 TAB TABLET 2 TAB PO ×2 (08:06→16:20)
[2022-12-20] MEDS: HYDROXYUREA 500 MG CAPSULE PO (08:06)
[2022-12-20] MEDS: INSULIN LISPRO 100 UNIT/ML VIAL SUBCUT (08:13)
[2022-12-20] MEDS: INSULIN LISPRO 100 UNIT/ML VIAL 10 UNIT SUBCUT ×3 (08:14→17:36)
--- NOTE | 2022-12-20 15:02 | PC.NURSE ---
Addendum entered by Suzanna Butt RN 12/20/22 16:17: Addendum: 4:14pm Fax received with lab orders: Labs due - 12/25 (CBC, CMP, Ferritin, iron studies) and 02/26 (CBC and CMP). Results arletteudl be faxed to: [phone] Patient confirmed to have appointment with Dr. Whitaker on 02/28/2023 at 1:15pm Orders left on desk for fire extinguisher chargerMaribel Original Note: Spoke with patient at bedside about possibility of wound care referral at [facility] wound clinic for evaluation and recommendation of treatment for bilateral heel wounds. Patient is in agreement with referral to clinic. Also spoke with patient's sister, Isael ([phone]) who is also in agreement with plan for referral to wound clinic. She noted that patient goes to cancer clinic in [facility] but could not remember name of provider. Isael did not have the order at home for labs that are needed prior to next appointment with doc on Feb 28. This machine sign writer called [facility] in [facility] (PH: [phone] ) and spoke with RN/Amaya who states patient currently sees Dr. Patti Whitaker who is an oncologist/global lead. His next appointment is scheduled for Feb 28 at 12:15 and he will need labs drawn the week of December 25 and before his appointment. The RN will fax over lab orders and date they need collected. Results should be faxed to their office. Awaiting reciept of fax.
[2022-12-20] MEDS: MONTELUKAST 10 MG TABLET PO (19:40)
[2022-12-20] MEDS: PRAVASTATIN SODIUM 40 MG TABLET 80 MG PO (19:40)
[2022-12-21] MEDS: ASPIRIN 81 MG TABLET EC PO (07:28)
[2022-12-21] MEDS: guaiFENesin 600 MG TAB.ER.12H 1200 MG PO ×2 (07:28→15:53)
[2022-12-21] MEDS: ACETAMINOPHEN 500 MG TABLET 1000 MG PO ×3 (07:28→19:45)
[2022-12-21] MEDS: FLUTICASONE PROPIONATE NASAL 1 SPRAY NOSTRIL-B ×2 (07:28→15:53)
[2022-12-21] MEDS: FLUTICASONE PROPION SALMETEROL 1 EACH IH ×2 (07:28→15:53)
[2022-12-21] MEDS: Tiotropium Bromide [Spiriva With Handihaler] 18 mcg capsule 1 EACH IH (07:29)
[2022-12-21] MEDS: NYSTATIN POWDER 1 APPLIC TOPICAL (07:29)
[2022-12-21] MEDS: HYDROXYUREA 500 MG CAPSULE PO (07:29)
[2022-12-21] MEDS: CETIRIZINE HCL 10 MG TABLET PO (07:29)
[2022-12-21] MEDS: SENNOSIDES 1 TAB TABLET 2 TAB PO ×2 (07:29→15:54)
[2022-12-21] MEDS: INSULIN LISPRO 100 UNIT/ML VIAL SUBCUT (08:41)
[2022-12-21] MEDS: INSULIN LISPRO 100 UNIT/ML VIAL 10 UNIT SUBCUT ×3 (08:42→17:38)
--- NOTE | 2022-12-21 10:48 | PC.NURSE ---
Order: Okay to be seen at the wound clinic for pressure injuries to bilateral heels, RBTO by Dr. Ruelas. Referral faxed to [phone].
--- NOTE | 2022-12-21 13:03 | PC.NURSE ---
Blood sugar: Residents blood sugar at lunch was 54 with no s/s of hypoglycemia. Was given a sandwich and oj, rechecked 15 minutes later and was 69. Ate lunch, rechecked at 118 and given insulin
[2022-12-21] MEDS: MONTELUKAST 10 MG TABLET PO (19:45)
[2022-12-21] MEDS: PRAVASTATIN SODIUM 40 MG TABLET 80 MG PO (19:45)
[2022-12-22] MEDS: ACETAMINOPHEN 500 MG TABLET 1000 MG PO ×3 (07:02→19:44)
[2022-12-22] MEDS: ASPIRIN 81 MG TABLET EC PO (07:03)
[2022-12-22] MEDS: Tiotropium Bromide [Spiriva With Handihaler] 18 mcg capsule 1 EACH IH (07:03)
[2022-12-22] MEDS: SENNOSIDES 1 TAB TABLET 2 TAB PO ×2 (07:03→15:22)
[2022-12-22] MEDS: guaiFENesin 600 MG TAB.ER.12H 1200 MG PO ×2 (07:03→15:22)
[2022-12-22] MEDS: CETIRIZINE HCL 10 MG TABLET PO (07:03)
[2022-12-22] MEDS: HYDROXYUREA 500 MG CAPSULE PO (07:03)
[2022-12-22] MEDS: FLUTICASONE PROPION SALMETEROL 1 EACH IH ×2 (07:03→15:22)
[2022-12-22] MEDS: FLUTICASONE PROPIONATE NASAL 1 SPRAY NOSTRIL-B ×2 (07:03→15:22)
[2022-12-22] MEDS: INSULIN LISPRO 100 UNIT/ML VIAL SUBCUT (08:42)
[2022-12-22] MEDS: INSULIN LISPRO 100 UNIT/ML VIAL 10 UNIT SUBCUT ×3 (08:43→17:16)
[2022-12-22] MEDS: MONTELUKAST 10 MG TABLET PO (19:44)
[2022-12-22] MEDS: NYSTATIN POWDER 1 APPLIC TOPICAL (19:44)
[2022-12-22] MEDS: PRAVASTATIN SODIUM 40 MG TABLET 80 MG PO (19:44)
[2022-12-23] MEDS: ASPIRIN 81 MG TABLET EC PO (07:09)
[2022-12-23] MEDS: ACETAMINOPHEN 500 MG TABLET 1000 MG PO ×3 (07:09→19:52)
[2022-12-23] MEDS: FLUTICASONE PROPIONATE NASAL 1 SPRAY NOSTRIL-B ×2 (07:09→16:11)
[2022-12-23] MEDS: FLUTICASONE PROPION SALMETEROL 1 EACH IH ×2 (07:09→16:11)
[2022-12-23] MEDS: guaiFENesin 600 MG TAB.ER.12H 1200 MG PO ×2 (07:09→16:11)
[2022-12-23] MEDS: SENNOSIDES 1 TAB TABLET 2 TAB PO ×2 (07:10→16:11)
[2022-12-23] MEDS: HYDROXYUREA 500 MG CAPSULE PO (07:10)
[2022-12-23] MEDS: NYSTATIN POWDER 1 APPLIC TOPICAL ×2 (07:10→19:53)
[2022-12-23] MEDS: Tiotropium Bromide [Spiriva With Handihaler] 18 mcg capsule 1 EACH IH (07:10)
[2022-12-23] MEDS: CETIRIZINE HCL 10 MG TABLET PO (07:10)
[2022-12-23] MEDS: INSULIN LISPRO 100 UNIT/ML VIAL SUBCUT ×2 (08:35→11:47)
[2022-12-23] MEDS: INSULIN LISPRO 100 UNIT/ML VIAL 10 UNIT SUBCUT ×3 (08:35→17:23)
[2022-12-23 10:05] VITALS: BP 132/74; PULSE 76; RESP 18; TEMP 36.8; O2SAT 96; BMI 21.7
--- NOTE | 2022-12-23 10:20 | PC.NURSE ---
Blood Sugar: Blood sugar this morning was high with dexcon, 482 with finger stick with no s/s of hyperglycemia.
[2022-12-23] MEDS: PRAVASTATIN SODIUM 40 MG TABLET 80 MG PO (19:53)
[2022-12-23] MEDS: MONTELUKAST 10 MG TABLET PO (19:53)
[2022-12-24] MEDS: ACETAMINOPHEN 500 MG TABLET 1000 MG PO ×3 (07:02→20:26)
[2022-12-24] MEDS: FLUTICASONE PROPION SALMETEROL 1 EACH IH ×2 (07:03→15:49)
[2022-12-24] MEDS: ASPIRIN 81 MG TABLET EC PO (07:03)
[2022-12-24] MEDS: guaiFENesin 600 MG TAB.ER.12H 1200 MG PO ×2 (07:03→15:50)
[2022-12-24] MEDS: FLUTICASONE PROPIONATE NASAL 1 SPRAY NOSTRIL-B ×2 (07:03→15:50)
[2022-12-24] MEDS: SENNOSIDES 1 TAB TABLET 2 TAB PO ×2 (07:05→15:50)
[2022-12-24] MEDS: HYDROXYUREA 500 MG CAPSULE PO (07:05)
[2022-12-24] MEDS: NYSTATIN POWDER 1 APPLIC TOPICAL ×2 (07:05→20:26)
[2022-12-24] MEDS: Tiotropium Bromide [Spiriva With Handihaler] 18 mcg capsule 1 EACH IH (07:06)
[2022-12-24] MEDS: CETIRIZINE HCL 10 MG TABLET PO (07:06)
[2022-12-24] MEDS: INSULIN LISPRO 100 UNIT/ML VIAL SUBCUT ×3 (08:17→16:43)
[2022-12-24] MEDS: INSULIN LISPRO 100 UNIT/ML VIAL 10 UNIT SUBCUT ×3 (08:18→16:43)
--- NOTE | 2022-12-24 12:55 | PC.NURSE ---
Visit note: Resident seen by LINA Delgado for cert visit. LINA Delgado gave new order to adjust Humalog sliding scale TID with meals based on blood glucose: 0-200 No coverage 201-250 2 units 251-300 4 units 301-350 6 units 351-400 9 units 401-450 12 units 451-500 15 units Ovver 500 18 units All orders reviewed and renewed for 75 days. Orders faxed to [facility].
--- NOTE | 2022-12-24 13:08 | PC.NURSE ---
Appointment note: Resident to be seen at [facility] for consult on 12/28/22 at 1030. Information placed on unit calendar.
--- NOTE | 2022-12-24 14:58 | PC.NURSE ---
Order note: LINA Delgado gave order to hold resident's Aspirin 81 mg until 01/04/23 0700. Order faxed to [facility].
[2022-12-24] MEDS: PRAVASTATIN SODIUM 40 MG TABLET 80 MG PO (20:26)
[2022-12-24] MEDS: MONTELUKAST 10 MG TABLET PO (20:26)
--- NOTE | 2022-12-24 21:54 | PC.NURSE ---
Resident day 2 no B.M. Resident refused Milk of Mag/prune juice
--- NOTE | 2022-12-24 22:07 | PC.NURSE ---
Resident c/o not getting large enough portion at dinner.
[2022-12-25 07:43] LABS: Basophils Percent Auto 0.3 % (0.0-3.0); Eosinophils Percent Auto 4.8 % (0.0-7.0); Hematocrit 31.9 % (37.0-53.0); Hemoglobin* 10.6 gm/dL (13.5-17.5); Immature Granulocytes Pct Auto 0.3 %; Lymphocytes Percent Auto 56.4 % (20-44); Mean Corpuscular HGB Conc 33 gm/dL (32-36); Mean Corpuscular Hemoglobin 35 pg (26-34); Mean Corpuscular Volume 105 fL (80-100); Monocytes Percent Auto 2.3 % (0.0-11.0); Neutrophils Percent Auto 35.9 % (42.0-72.0); Platelet Count* 194 K/uL (140-440); RDW Coefficient of Variation % 13.1 % (11.5-15.5); Red Blood Count 3.04 m/uL (4.30-5.90); White Blood Count* 3.51 K/uL (4.50-11.00)
[2022-12-25] MEDS: NYSTATIN POWDER 1 APPLIC TOPICAL ×2 (07:47→20:08)
[2022-12-25] MEDS: ACETAMINOPHEN 500 MG TABLET 1000 MG PO ×3 (07:48→20:08)
[2022-12-25] MEDS: guaiFENesin 600 MG TAB.ER.12H 1200 MG PO ×2 (07:55→16:20)
[2022-12-25] MEDS: SENNOSIDES 1 TAB TABLET 2 TAB PO ×2 (07:55→16:20)
[2022-12-25] MEDS: HYDROXYUREA 500 MG CAPSULE PO (07:55)
[2022-12-25] MEDS: CETIRIZINE HCL 10 MG TABLET PO (07:55)
[2022-12-25] MEDS: Tiotropium Bromide [Spiriva With Handihaler] 18 mcg capsule 1 EACH IH (07:57)
[2022-12-25] MEDS: INSULIN LISPRO 100 UNIT/ML VIAL 10 UNIT SUBCUT ×3 (07:59→17:21)
[2022-12-25] MEDS: INSULIN LISPRO 100 UNIT/ML VIAL SUBCUT ×2 (07:59→11:48)
[2022-12-25] MEDS: FLUTICASONE PROPION SALMETEROL 1 EACH IH ×2 (08:00→16:19)
[2022-12-25] MEDS: FLUTICASONE PROPIONATE NASAL 1 SPRAY NOSTRIL-B ×2 (08:00→16:19)
[2022-12-25 08:01] LABS: Albumin* 3.9 g/dL (3.3-5.0); Chloride* 100 mmol/L (96-114); Slide Review Reflex No; Sodium* 135 mmol/L (135-149)
[2022-12-25 08:02] LABS: Potassium* 4.2 mmol/L (3.6-5.1)
[2022-12-25 08:04] LABS: Alanine Aminotransferase* 19 U/L (4-50); Alkaline Phosphatase* 123 U/L (40-150); Aspartate Amino Transferase* 21 U/L (12-35); Bilirubin Total* 0.5 mg/dL (0.1-1.5); Blood Urea Nitrogen* 22 mg/dL (7-30); Carbon Dioxide* 24 mmol/L (20-32); Creatinine* 0.8 mg/dL (0.5-1.5); Est. Creatinine Clearance* 61.49; Estimated Glomerular Filt Rate 90 ml/min; Total Protein* 6.8 g/dL (6.0-8.3)
[2022-12-25 08:05] LABS: Calcium* 9.2 mg/dL (8.4-10.6)
[2022-12-25 08:14] LABS: Iron* 89 ug/dL (49-181)
[2022-12-25 08:19] LABS: Glucose* 453 mg/dL (60-115)
[2022-12-25 08:23] LABS: Percent Iron Saturation 34 % (20-50); Total Iron Binding Capacity 260 ug/dL (261-462)
[2022-12-25 08:50] LABS: Ferritin* 99.9 ng/mL (17.9-464.0)
--- NOTE | 2022-12-25 11:22 | PC.SPIRITC ---
I provided visit for connection and support.
--- NOTE | 2022-12-25 11:36 | PC.NURSE ---
Aspirin On hold: Call was made to [facility] to clarify Aspirin dosage from Jennifer jefferson yesterday . It was confirm that resident's Aspirin is on hold until the 01/04/23 to promote wound healing.
--- NOTE | 2022-12-25 14:31 | PC.NURSE ---
Lab note: gallery intern faxed resident's CBC, CMP and Ferritin Iron studies lab results completed today to [facility] at [phone] per provider instruction.
[2022-12-25] MEDS: PRAVASTATIN SODIUM 40 MG TABLET 80 MG PO (20:08)
[2022-12-25] MEDS: MONTELUKAST 10 MG TABLET PO (20:08)
[2022-12-26] MEDS: HYDROXYUREA 500 MG CAPSULE PO (07:51)
[2022-12-26] MEDS: guaiFENesin 600 MG TAB.ER.12H 1200 MG PO ×2 (07:51→16:57)
[2022-12-26] MEDS: Tiotropium Bromide [Spiriva With Handihaler] 18 mcg capsule 1 EACH IH (07:51)
[2022-12-26] MEDS: CETIRIZINE HCL 10 MG TABLET PO (07:51)
[2022-12-26] MEDS: ACETAMINOPHEN 500 MG TABLET 1000 MG PO ×3 (07:51→20:15)
[2022-12-26] MEDS: FLUTICASONE PROPION SALMETEROL 1 EACH IH ×2 (07:51→16:57)
[2022-12-26] MEDS: FLUTICASONE PROPIONATE NASAL 1 SPRAY NOSTRIL-B ×2 (07:51→16:57)
[2022-12-26] MEDS: SENNOSIDES 1 TAB TABLET 2 TAB PO ×2 (07:51→16:58)
[2022-12-26] MEDS: NYSTATIN POWDER 1 APPLIC TOPICAL ×2 (08:09→20:15)
[2022-12-26] MEDS: INSULIN LISPRO 100 UNIT/ML VIAL 10 UNIT SUBCUT ×3 (08:12→17:33)
[2022-12-26] MEDS: INSULIN LISPRO 100 UNIT/ML VIAL SUBCUT ×2 (12:05→17:34)
--- NOTE | 2022-12-26 14:25 | NUTR.NU ---
Per monthly weight monitoring, resident triggers for significant weight loss. Current weight of 160lbs on 12/23/22 shows significant weight loss of 13lbs (~7.51%) with 30 day weight of 173lbs on 11/27/22. No recent meal intakes available to review at this time. In IDT meeting, RDN was notified that resident reports feeling hungry following meals. RDN met with resident in room on this day to discuss weight loss and snacks. Resident reports a good appetite and notes that he does not consistently feel hungry following meals. RDN encouraged resident to ask for diabetic friendly snacks as he desires when hungry. Resident has list of these snacks in his room for his reference. Resident current has diabetic friendly snacks offered at 2200. RDN added diabetic friendly snacks to be offered at 1400 to help with hunger and weight loss. Resident was accepting of this change. Diabetic friendly snacks BID will provide ~300 kcals and ~15 grams of protein. With historically good intakes and snacks BID resident is likely meeting his estimated nutritional needs. RDN will continue to monitor.
[2022-12-26] MEDS: PRAVASTATIN SODIUM 40 MG TABLET 80 MG PO (20:15)
[2022-12-26] MEDS: MONTELUKAST 10 MG TABLET PO (20:15)
--- NOTE | 2022-12-27 00:58 | PC.NURSE ---
Weekly Charting Week 2; Mobility. Vital signs reviewed. Vital signs stable except uncontrolled blood Glucose reading. HAM ROLLING MACHINE OPERATOR aware, Continue weekly vitals monitoring and Blood glucose monitoring QID, Update provider as needed. Comprehensive and temporary care plan reviewed with no changes made. Resident is independent with bed mobility, transfers, ambulates with walker. Has Right 1/4 side rail up at all times to promote independent self-repositioning in bed. Resident is at low risk for falls. No fall in the past month. Fall intervention: call light within reach, bed in low position and brakes locked, wears non skid footwear. Resident not on ROM programs at this time.
--- NOTE | 2022-12-27 07:05 | PC.NURSE ---
WEEKLY CHARTING-WEEK 2 -MOBILITY: Reviewed resident's recent vital signs and noted a few elevated BP, staff will continue to monitor weekly and update provider as needed. Reviewed temporary and comprehensive care plans, as of 11/28/2022 Resident may now use Delroy sensor to monitor blood glucose levels. No other changes made/noted. Resident is independent with transfers, ambulates with walker. Able to get in and out of bed and reposition themselves as needed. Right 1/4 side rail up at all times to promote independent self-repositioning. No other assistive devices needed for mobility. Resident is on low risk of fall due to fall risk assessment done on the 11/27/22 . Interventions to prevent falls include keeping bed locked and in low position with call light in reach and non skid footwear.
[2022-12-27] MEDS: INSULIN LISPRO 100 UNIT/ML VIAL SUBCUT ×3 (07:06→17:10)
[2022-12-27] MEDS: INSULIN LISPRO 100 UNIT/ML VIAL 10 UNIT SUBCUT ×3 (07:07→17:10)
[2022-12-27] MEDS: Tiotropium Bromide [Spiriva With Handihaler] 18 mcg capsule 1 EACH IH (07:13)
[2022-12-27] MEDS: HYDROXYUREA 500 MG CAPSULE PO (07:13)
[2022-12-27] MEDS: FLUTICASONE PROPION SALMETEROL 1 EACH IH ×2 (07:13→16:16)
[2022-12-27] MEDS: guaiFENesin 600 MG TAB.ER.12H 1200 MG PO ×2 (07:13→16:16)
[2022-12-27] MEDS: SENNOSIDES 1 TAB TABLET 2 TAB PO ×2 (07:13→16:16)
[2022-12-27] MEDS: CETIRIZINE HCL 10 MG TABLET PO (07:13)
[2022-12-27] MEDS: NYSTATIN POWDER 1 APPLIC TOPICAL ×2 (07:13→20:07)
[2022-12-27] MEDS: ACETAMINOPHEN 500 MG TABLET 1000 MG PO ×3 (07:13→20:06)
[2022-12-27] MEDS: FLUTICASONE PROPIONATE NASAL 1 SPRAY NOSTRIL-B ×2 (07:13→16:16)
--- NOTE | 2022-12-27 08:35 | PC.NURSE ---
BS high. Resident BS was 547 ( finger prick).he was asymptomatic and left message with [facility] on the BS above 500. Instruction received from TYPE CUTTER workers compensation paralegal to give Insulin as per sliding scale.
--- NOTE | 2022-12-27 13:30 | PC.NURSE ---
Seen by LINA Delgado and order the following intervention : 1) Update provider if patient has 2 consecutive blood sugar values above 500 2)Please remove dressing to heels prior to bath even if its not a treatment day to prevent skin maceration 3) Give patient diet juice unless blood sugar is below 70,then may give 6oz of regular juice at that time
[2022-12-27] MEDS: MONTELUKAST 10 MG TABLET PO (20:07)
[2022-12-27] MEDS: PRAVASTATIN SODIUM 40 MG TABLET 80 MG PO (20:07)
[2022-12-28] MEDS: guaiFENesin 600 MG TAB.ER.12H 1200 MG PO ×2 (08:28→16:01)
[2022-12-28] MEDS: ACETAMINOPHEN 500 MG TABLET 1000 MG PO ×3 (08:28→19:54)
[2022-12-28] MEDS: FLUTICASONE PROPION SALMETEROL 1 EACH IH ×2 (08:28→16:01)
[2022-12-28] MEDS: FLUTICASONE PROPIONATE NASAL 1 SPRAY NOSTRIL-B ×2 (08:28→16:01)
[2022-12-28] MEDS: SENNOSIDES 1 TAB TABLET 2 TAB PO ×2 (08:29→16:01)
[2022-12-28] MEDS: NYSTATIN POWDER 1 APPLIC TOPICAL ×2 (08:29→19:54)
[2022-12-28] MEDS: Tiotropium Bromide [Spiriva With Handihaler] 18 mcg capsule 1 EACH IH (08:29)
[2022-12-28] MEDS: HYDROXYUREA 500 MG CAPSULE PO (08:29)
[2022-12-28] MEDS: CETIRIZINE HCL 10 MG TABLET PO (08:29)
[2022-12-28] MEDS: INSULIN LISPRO 100 UNIT/ML VIAL SUBCUT (12:07)
[2022-12-28] MEDS: INSULIN LISPRO 100 UNIT/ML VIAL 10 UNIT SUBCUT ×2 (12:07→17:36)
--- NOTE | 2022-12-28 13:46 | PC.NURSE ---
Blood sugar: Resident 0700 blood sugar was 53 AM fast acting insulin Lispro was held. When rechecked at 1000 resident was at 199 and when checked at 1200 was 315.
--- NOTE | 2022-12-28 14:14 | PC.NURSE ---
Wound clinic Apt: Resident returned from wound clinic with new orders: For bilateral heals:Cleanse with wound cleanser, apply betadine swab to wound and wound edges then cover with sacral mepilex. Change 3x weekly for 15 days.Next apt 01/04 at 11:30. Also order to complete vascular ultrasound, clinic will call care home care to schedule.
[2022-12-28] MEDS: MONTELUKAST 10 MG TABLET PO (19:54)
[2022-12-28] MEDS: PRAVASTATIN SODIUM 40 MG TABLET 80 MG PO (19:54)
[2022-12-29] MEDS: ACETAMINOPHEN 500 MG TABLET 1000 MG PO ×3 (07:32→19:40)
[2022-12-29] MEDS: FLUTICASONE PROPION SALMETEROL 1 EACH IH ×2 (07:32→15:39)
[2022-12-29] MEDS: HYDROXYUREA 500 MG CAPSULE PO (07:33)
[2022-12-29] MEDS: SENNOSIDES 1 TAB TABLET 2 TAB PO ×2 (07:33→15:39)
[2022-12-29] MEDS: guaiFENesin 600 MG TAB.ER.12H 1200 MG PO ×2 (07:33→15:39)
[2022-12-29] MEDS: FLUTICASONE PROPIONATE NASAL 1 SPRAY NOSTRIL-B ×2 (07:33→15:39)
[2022-12-29] MEDS: NYSTATIN POWDER 1 APPLIC TOPICAL ×2 (07:34→19:41)
[2022-12-29] MEDS: Tiotropium Bromide [Spiriva With Handihaler] 18 mcg capsule 1 EACH IH (07:34)
[2022-12-29] MEDS: CETIRIZINE HCL 10 MG TABLET PO (07:34)
[2022-12-29] MEDS: INSULIN LISPRO 100 UNIT/ML VIAL SUBCUT (08:09)
[2022-12-29] MEDS: INSULIN LISPRO 100 UNIT/ML VIAL 10 UNIT SUBCUT ×3 (08:09→17:13)
[2022-12-29] MEDS: PRAVASTATIN SODIUM 40 MG TABLET 80 MG PO (19:41)
[2022-12-29] MEDS: MONTELUKAST 10 MG TABLET PO (19:41)
--- NOTE | 2022-12-30 06:27 | PC.NURSE ---
Hypoglycemia Resident was rechecked early this morning because of low blood sugar last night , he went from BS 40, after snack BS 62 and BS 124. He was sleeping soundly , no symptoms. All reported to Am Nurse to follow up.
[2022-12-30 07:00] VITALS: BMI 21.2
[2022-12-30] MEDS: FLUTICASONE PROPIONATE NASAL 1 SPRAY NOSTRIL-B ×2 (08:25→15:58)
[2022-12-30] MEDS: guaiFENesin 600 MG TAB.ER.12H 1200 MG PO ×2 (08:25→15:58)
[2022-12-30] MEDS: ACETAMINOPHEN 500 MG TABLET 1000 MG PO ×3 (08:25→19:48)
[2022-12-30] MEDS: FLUTICASONE PROPION SALMETEROL 1 EACH IH ×2 (08:25→15:58)
[2022-12-30] MEDS: HYDROXYUREA 500 MG CAPSULE PO (08:26)
[2022-12-30] MEDS: Tiotropium Bromide [Spiriva With Handihaler] 18 mcg capsule 1 EACH IH (08:26)
[2022-12-30] MEDS: SENNOSIDES 1 TAB TABLET 2 TAB PO ×2 (08:26→15:58)
[2022-12-30] MEDS: NYSTATIN POWDER 1 APPLIC TOPICAL ×2 (08:26→19:48)
[2022-12-30] MEDS: CETIRIZINE HCL 10 MG TABLET PO (08:26)
[2022-12-30] MEDS: INSULIN LISPRO 100 UNIT/ML VIAL 10 UNIT SUBCUT ×3 (08:33→17:17)
[2022-12-30] MEDS: INSULIN LISPRO 100 UNIT/ML VIAL SUBCUT (08:33)
[2022-12-30 09:27] VITALS: BP 129/66; PULSE 78; RESP 16; TEMP 36.9; O2SAT 100
[2022-12-30] MEDS: MONTELUKAST 10 MG TABLET PO (19:48)
[2022-12-30] MEDS: PRAVASTATIN SODIUM 40 MG TABLET 80 MG PO (19:49)
[2022-12-31] MEDS: FLUTICASONE PROPION SALMETEROL 1 EACH IH ×2 (07:10→15:38)
[2022-12-31] MEDS: ACETAMINOPHEN 500 MG TABLET 1000 MG PO ×3 (07:10→19:54)
[2022-12-31] MEDS: NYSTATIN POWDER 1 APPLIC TOPICAL ×2 (07:10→19:54)
[2022-12-31] MEDS: Tiotropium Bromide [Spiriva With Handihaler] 18 mcg capsule 1 EACH IH (07:10)
[2022-12-31] MEDS: guaiFENesin 600 MG TAB.ER.12H 1200 MG PO ×2 (07:10→15:39)
[2022-12-31] MEDS: SENNOSIDES 1 TAB TABLET 2 TAB PO ×2 (07:10→15:39)
[2022-12-31] MEDS: HYDROXYUREA 500 MG CAPSULE PO (07:10)
[2022-12-31] MEDS: FLUTICASONE PROPIONATE NASAL 1 SPRAY NOSTRIL-B ×2 (07:10→15:38)
[2022-12-31] MEDS: CETIRIZINE HCL 10 MG TABLET PO (07:11)
[2022-12-31] MEDS: INSULIN LISPRO 100 UNIT/ML VIAL SUBCUT (09:34)
[2022-12-31] MEDS: INSULIN LISPRO 100 UNIT/ML VIAL 10 UNIT SUBCUT ×3 (09:35→17:18)
[2022-12-31] MEDS: PRAVASTATIN SODIUM 40 MG TABLET 80 MG PO (19:54)
[2022-12-31] MEDS: MONTELUKAST 10 MG TABLET PO (19:54)
[2023-01-01] MEDS: FLUTICASONE PROPION SALMETEROL 1 EACH IH ×2 (07:56→16:10)
[2023-01-01] MEDS: FLUTICASONE PROPIONATE NASAL 1 SPRAY NOSTRIL-B ×2 (07:56→16:10)
[2023-01-01] MEDS: ACETAMINOPHEN 500 MG TABLET 1000 MG PO ×3 (07:56→19:47)
[2023-01-01] MEDS: HYDROXYUREA 500 MG CAPSULE PO (07:57)
[2023-01-01] MEDS: SENNOSIDES 1 TAB TABLET 2 TAB PO ×2 (07:57→16:10)
[2023-01-01] MEDS: guaiFENesin 600 MG TAB.ER.12H 1200 MG PO ×2 (07:57→16:10)
[2023-01-01] MEDS: CETIRIZINE HCL 10 MG TABLET PO (07:58)
[2023-01-01] MEDS: NYSTATIN POWDER 1 APPLIC TOPICAL ×2 (08:37→19:47)
[2023-01-01] MEDS: Tiotropium Bromide [Spiriva With Handihaler] 18 mcg capsule 1 EACH IH (08:37)
[2023-01-01] MEDS: INSULIN LISPRO 100 UNIT/ML VIAL 10 UNIT SUBCUT ×3 (08:45→17:16)
--- NOTE | 2023-01-01 11:18 | PC.NURSE ---
Appt : Resident has Vascular ultrasound appointment tomorrow (01/02) at 1500 hours. To send him to imaging 15min early for registration
[2023-01-01] MEDS: PRAVASTATIN SODIUM 40 MG TABLET 80 MG PO (19:47)
[2023-01-01] MEDS: MONTELUKAST 10 MG TABLET PO (19:47)
[2023-01-02] MEDS: guaiFENesin 600 MG TAB.ER.12H 1200 MG PO ×2 (07:18→15:59)
[2023-01-02] MEDS: FLUTICASONE PROPIONATE NASAL 1 SPRAY NOSTRIL-B ×2 (07:18→15:59)
[2023-01-02] MEDS: CETIRIZINE HCL 10 MG TABLET PO (07:18)
[2023-01-02] MEDS: NYSTATIN POWDER 1 APPLIC TOPICAL (07:18)
[2023-01-02] MEDS: HYDROXYUREA 500 MG CAPSULE PO (07:18)
[2023-01-02] MEDS: ACETAMINOPHEN 500 MG TABLET 1000 MG PO ×3 (07:18→20:10)
[2023-01-02] MEDS: SENNOSIDES 1 TAB TABLET 2 TAB PO ×2 (07:18→15:59)
[2023-01-02] MEDS: FLUTICASONE PROPION SALMETEROL 1 EACH IH ×2 (07:18→15:59)
[2023-01-02] MEDS: Tiotropium Bromide [Spiriva With Handihaler] 18 mcg capsule 1 EACH IH (07:18)
[2023-01-02] MEDS: INSULIN LISPRO 100 UNIT/ML VIAL 10 UNIT SUBCUT ×3 (08:18→17:21)
[2023-01-02] MEDS: INSULIN LISPRO 100 UNIT/ML VIAL SUBCUT (08:18)
--- NOTE | 2023-01-02 10:51 | PC.NURSE ---
Skin: No noted redness in the groin. Note left in LOCK AND DAM EQUIPMENT REPAIRER book to change Nystatin from scheduled to PRN.
--- NOTE | 2023-01-02 13:26 | PC.NURSE ---
Blood sugars: Residents blood sugar at 0730 was 104 was given orange juice, when rechecked at 0815 blood sugar was 205, AM insulin was given. Then blood sugar was taken at 1130 and was 63 resident was given a snack of a muffin and some denice sandee when rechecked at 1200 resident was at 79, afternoon insulin was given.
[2023-01-02] MEDS: MONTELUKAST 10 MG TABLET PO (20:10)
[2023-01-02] MEDS: PRAVASTATIN SODIUM 40 MG TABLET 80 MG PO (20:10)
--- NOTE | 2023-01-03 05:01 | PC.NURSE ---
WEEKLY CHARTING WEEK 3 TOILETING AND SKIN Vital signs, no concerns. Blood sugar unstable, CLIENT EXECUTIVE aware and monitored. Comprehensive and temporary care plan reviewed. No changes made, nothing added to temporary care plan. Resident is continent of bowel and bladder ( dribbles occasionally). Toilets self. Wears pull ups. Pads, pericares, clothing managed by self. Will ask for assist as needed. Skin:Resident has wound on both heels, got treatment 3 times a week ; using pillow and heel boots at all times to off load pressure. Skin is routinely checked on bath days and PRN.
[2023-01-03] MEDS: ACETAMINOPHEN 500 MG TABLET 1000 MG PO ×2 (07:06→20:38)
[2023-01-03] MEDS: SENNOSIDES 1 TAB TABLET 2 TAB PO ×2 (07:07→17:23)
[2023-01-03] MEDS: Tiotropium Bromide [Spiriva With Handihaler] 18 mcg capsule 1 EACH IH (07:07)
[2023-01-03] MEDS: CETIRIZINE HCL 10 MG TABLET PO (07:07)
[2023-01-03] MEDS: guaiFENesin 600 MG TAB.ER.12H 1200 MG PO ×2 (07:07→17:23)
[2023-01-03] MEDS: FLUTICASONE PROPIONATE NASAL 1 SPRAY NOSTRIL-B ×2 (07:07→17:22)
[2023-01-03] MEDS: FLUTICASONE PROPION SALMETEROL 1 EACH IH ×2 (07:07→17:22)
[2023-01-03] MEDS: HYDROXYUREA 500 MG CAPSULE PO (07:07)
--- NOTE | 2023-01-03 07:35 | PC.NURSE ---
WEEKLY CHARTING -WEEK 3 -TOILETING & SKIN : Vital signs reviewed with no concerns. Blood sugar unstable, noted & monitored by provider with changes made to his insulin and dietary. Education and continuous reminder has also been provided by staff .Comprehensive and temporary care plan reviewed with changes made to skin issue. Resident is continent of bowel and bladder ( dribbles occasionally). Toilets self. Wears pull ups. Pads, pericares, clothing managed by self. Will ask for assist as needed. Skin: Resident has open blisters to his both heels which is cleaned 3 times a week,apply betadine swab to the wound and wound edges and covered with Mepilex, he also has a superficial scratching to LLE lateral which staff are monitoring for skin infection and beside that he also has a small open area on coccyx which is left open to air for healing. Staff continue to checked checked on bath days and PRN.
[2023-01-03] MEDS: INSULIN LISPRO 100 UNIT/ML VIAL 10 UNIT SUBCUT ×2 (08:23→17:23)
[2023-01-03] MEDS: INSULIN LISPRO 100 UNIT/ML VIAL SUBCUT (08:23)
--- NOTE | 2023-01-03 12:09 | PC.NURSE ---
Outing: Resident going out with sister Joyce at 1030 this morning. Gave sister residents noon Tylenol, glucose reader and Humalog insulin. Joyce is aware of the dosing and sliding scale.
[2023-01-03] MEDS: NYSTATIN POWDER 1 APPLIC TOPICAL (20:38)
[2023-01-03] MEDS: MONTELUKAST 10 MG TABLET PO (20:38)
[2023-01-03] MEDS: PRAVASTATIN SODIUM 40 MG TABLET 80 MG PO (20:38)
[2023-01-04] MEDS: FLUTICASONE PROPIONATE NASAL 1 SPRAY NOSTRIL-B ×2 (07:08→16:16)
[2023-01-04] MEDS: FLUTICASONE PROPION SALMETEROL 1 EACH IH ×2 (07:08→16:16)
[2023-01-04] MEDS: guaiFENesin 600 MG TAB.ER.12H 1200 MG PO ×2 (07:08→16:16)
[2023-01-04] MEDS: ASPIRIN 81 MG TABLET EC PO (07:08)
[2023-01-04] MEDS: ACETAMINOPHEN 500 MG TABLET 1000 MG PO ×3 (07:08→20:05)
[2023-01-04] MEDS: HYDROXYUREA 500 MG CAPSULE PO (07:10)
[2023-01-04] MEDS: Tiotropium Bromide [Spiriva With Handihaler] 18 mcg capsule 1 EACH IH (07:11)
[2023-01-04] MEDS: NYSTATIN POWDER 1 APPLIC TOPICAL ×2 (07:11→20:05)
[2023-01-04] MEDS: CETIRIZINE HCL 10 MG TABLET PO (07:11)
[2023-01-04] MEDS: SENNOSIDES 1 TAB TABLET 2 TAB PO ×2 (07:11→16:16)
[2023-01-04] MEDS: INSULIN LISPRO 100 UNIT/ML VIAL SUBCUT ×2 (08:38→17:23)
[2023-01-04] MEDS: INSULIN LISPRO 100 UNIT/ML VIAL 10 UNIT SUBCUT ×3 (08:39→17:23)
--- NOTE | 2023-01-04 10:02 | PC.NURSE ---
Performed glucose monitor testing on 01/03. Glucose monitor and strips confirmed to be accurate. Documented as completed in interventions.
--- NOTE | 2023-01-04 14:34 | PC.NURSE ---
Addendum entered by Faustina Knott RN 01/04/23 14:51: Additional info Please give protein supplement 2-3 times per day. Please watch for carbohydrate and added sugar in shake. for wound healing ideally blood sugar to be below 180. Original Note: Resident came back from wound clinic at 1150 .Orders changed as follows : 1) Clean both heels with cleanser 2) Apply Betadine to wound and wound edges 3) Covers heels with gauze 4) Secured with Tubigrip to hold the gauze in place.5)Heel boots /off loading shoes should be on at all times even when on recliner Next wound clinic appt is on & 01/18 at 1130. Resident also has a referral to Vascular in [place] due to decreased blood flow in both legs more to right. They will inform his sister Joyce the date for the appt.
[2023-01-04] MEDS: MONTELUKAST 10 MG TABLET PO (20:05)
[2023-01-04] MEDS: PRAVASTATIN SODIUM 40 MG TABLET 80 MG PO (20:05)
[2023-01-05] MEDS: FLUTICASONE PROPION SALMETEROL 1 EACH IH ×2 (07:14→15:35)
[2023-01-05] MEDS: ACETAMINOPHEN 500 MG TABLET 1000 MG PO ×3 (07:14→19:55)
[2023-01-05] MEDS: ASPIRIN 81 MG TABLET EC PO (07:14)
[2023-01-05] MEDS: FLUTICASONE PROPIONATE NASAL 1 SPRAY NOSTRIL-B ×2 (07:14→15:35)
[2023-01-05] MEDS: guaiFENesin 600 MG TAB.ER.12H 1200 MG PO ×2 (07:14→15:35)
[2023-01-05] MEDS: CETIRIZINE HCL 10 MG TABLET PO (07:15)
[2023-01-05] MEDS: NYSTATIN POWDER 1 APPLIC TOPICAL ×2 (07:15→19:55)
[2023-01-05] MEDS: SENNOSIDES 1 TAB TABLET 2 TAB PO ×2 (07:15→15:35)
[2023-01-05] MEDS: Tiotropium Bromide [Spiriva With Handihaler] 18 mcg capsule 1 EACH IH (07:15)
[2023-01-05] MEDS: HYDROXYUREA 500 MG CAPSULE PO (07:15)
[2023-01-05] MEDS: INSULIN LISPRO 100 UNIT/ML VIAL SUBCUT ×2 (08:32→11:51)
[2023-01-05] MEDS: INSULIN LISPRO 100 UNIT/ML VIAL 10 UNIT SUBCUT ×2 (08:33→11:52)
--- NOTE | 2023-01-05 09:49 | PC.NURSE ---
Blood sugar: Blood sugar with dexcom was high, checked with finger and it was 356
[2023-01-05] MEDS: MONTELUKAST 10 MG TABLET PO (19:55)
[2023-01-05] MEDS: PRAVASTATIN SODIUM 40 MG TABLET 80 MG PO (19:55)
--- NOTE | 2023-01-05 21:30 | PC.NURSE ---
Blood Glucose: Resident's BG reading at 16:45 at 64. Given 4 oz of juice and snack. BG taken at 17:10 reading 65. BG at 1730 reading 74. Scheduled humalog held. No s/s of hypoglycemia.
[2023-01-06 07:00] VITALS: BP 127/66; PULSE 74; RESP 18; TEMP 36.8; O2SAT 94; BMI 21.7
[2023-01-06] MEDS: FLUTICASONE PROPIONATE NASAL 1 SPRAY NOSTRIL-B ×2 (07:02→16:25)
[2023-01-06] MEDS: ASPIRIN 81 MG TABLET EC PO (07:02)
[2023-01-06] MEDS: FLUTICASONE PROPION SALMETEROL 1 EACH IH ×2 (07:02→16:25)
[2023-01-06] MEDS: ACETAMINOPHEN 500 MG TABLET 1000 MG PO ×3 (07:02→20:14)
[2023-01-06] MEDS: NYSTATIN POWDER 1 APPLIC TOPICAL ×2 (07:03→20:15)
[2023-01-06] MEDS: SENNOSIDES 1 TAB TABLET 2 TAB PO ×2 (07:03→16:26)
[2023-01-06] MEDS: CETIRIZINE HCL 10 MG TABLET PO (07:03)
[2023-01-06] MEDS: guaiFENesin 600 MG TAB.ER.12H 1200 MG PO ×2 (07:03→16:26)
[2023-01-06] MEDS: HYDROXYUREA 500 MG CAPSULE PO (07:03)
[2023-01-06] MEDS: Tiotropium Bromide [Spiriva With Handihaler] 18 mcg capsule 1 EACH IH (07:03)
[2023-01-06] MEDS: INSULIN LISPRO 100 UNIT/ML VIAL SUBCUT ×3 (08:38→17:27)
[2023-01-06] MEDS: INSULIN LISPRO 100 UNIT/ML VIAL 10 UNIT SUBCUT ×3 (08:39→17:27)
--- NOTE | 2023-01-06 09:36 | PC.NURSE ---
Blood Sugar: Blood suger this morning using Freestyle Delroy Monitor was high, finger prick showed 475, resident had no s/s of hyperglycemia, was encouraged to drink water.
[2023-01-06] MEDS: PRAVASTATIN SODIUM 40 MG TABLET 80 MG PO (20:15)
[2023-01-06] MEDS: MONTELUKAST 10 MG TABLET PO (20:15)
[2023-01-07] MEDS: FLUTICASONE PROPION SALMETEROL 1 EACH IH ×2 (07:18→16:01)
[2023-01-07] MEDS: FLUTICASONE PROPIONATE NASAL 1 SPRAY NOSTRIL-B ×2 (07:18→16:01)
[2023-01-07] MEDS: ASPIRIN 81 MG TABLET EC PO (07:18)
[2023-01-07] MEDS: ACETAMINOPHEN 500 MG TABLET 1000 MG PO ×3 (07:18→19:59)
[2023-01-07] MEDS: Tiotropium Bromide [Spiriva With Handihaler] 18 mcg capsule 1 EACH IH (07:19)
[2023-01-07] MEDS: NYSTATIN POWDER 1 APPLIC TOPICAL ×2 (07:19→19:59)
[2023-01-07] MEDS: CETIRIZINE HCL 10 MG TABLET PO (07:19)
[2023-01-07] MEDS: guaiFENesin 600 MG TAB.ER.12H 1200 MG PO ×2 (07:19→16:02)
[2023-01-07] MEDS: SENNOSIDES 1 TAB TABLET 2 TAB PO ×2 (07:19→16:02)
[2023-01-07] MEDS: HYDROXYUREA 500 MG CAPSULE PO (07:19)
[2023-01-07] MEDS: INSULIN LISPRO 100 UNIT/ML VIAL 10 UNIT SUBCUT ×3 (08:41→16:41)
[2023-01-07] MEDS: INSULIN LISPRO 100 UNIT/ML VIAL SUBCUT ×2 (08:41→11:31)
--- NOTE | 2023-01-07 13:49 | NUTR.NU ---
Addendum entered and electronically signed by Monique Rascon 01/08/23 15:21: Double protein portions ordered per TELECOMMUNICATION TOWER TECHNICIAN. RDN updated care plan and diet card. Original Note: RDN with late entry on 01/04/23. Resident had questions regarding ribs when he goes out. BENJI Parekh discussed with resident that ribs are OK and to use any extra sauce sparingly.? RDN also cautioned him about other portions of the meal since restaurant meals portions can add up.?Resident verbalized understanding. During this visit resident continued to express feeling hungry occasionally after supper as he feels the portions are a little small. Resident is receiving diabetic friendly snacks BID. RDN visited with resident in room on this day to discuss. Resident is accepting of adding double protein portions at supper to increase protein intake and to aid in satiety. RDN completed a request to TELECOMMUNICATION TOWER TECHNICIAN regarding double protein portions at supper. RDN will continue to follow.
[2023-01-07] MEDS: PRAVASTATIN SODIUM 40 MG TABLET 80 MG PO (19:59)
[2023-01-07] MEDS: MONTELUKAST 10 MG TABLET PO (19:59)
--- NOTE | 2023-01-07 21:40 | PC.NURSE ---
17:00-Delroy BG = 199. Glucometer = 192. 20:00-Delroy BG = 295. Glucometer = 289.
[2023-01-08] MEDS: ACETAMINOPHEN 500 MG TABLET 1000 MG PO ×3 (07:53→20:07)
[2023-01-08] MEDS: FLUTICASONE PROPIONATE NASAL 1 SPRAY NOSTRIL-B ×2 (07:53→16:17)
[2023-01-08] MEDS: ASPIRIN 81 MG TABLET EC PO (07:53)
[2023-01-08] MEDS: FLUTICASONE PROPION SALMETEROL 1 EACH IH ×2 (07:53→16:17)
[2023-01-08] MEDS: guaiFENesin 600 MG TAB.ER.12H 1200 MG PO ×2 (07:53→16:17)
[2023-01-08] MEDS: SENNOSIDES 1 TAB TABLET 2 TAB PO ×2 (07:54→16:18)
[2023-01-08] MEDS: HYDROXYUREA 500 MG CAPSULE PO (07:54)
[2023-01-08] MEDS: NYSTATIN POWDER 1 APPLIC TOPICAL (07:54)
[2023-01-08] MEDS: CETIRIZINE HCL 10 MG TABLET PO (07:54)
[2023-01-08] MEDS: Tiotropium Bromide [Spiriva With Handihaler] 18 mcg capsule 1 EACH IH (07:54)
[2023-01-08] MEDS: INSULIN LISPRO 100 UNIT/ML VIAL SUBCUT ×2 (08:10→12:00)
[2023-01-08] MEDS: INSULIN LISPRO 100 UNIT/ML VIAL 10 UNIT SUBCUT ×3 (08:11→17:11)
[2023-01-08 08:23] VITALS: BP 149/63; PULSE 82; RESP 16; TEMP 36.3; O2SAT 97
--- NOTE | 2023-01-08 08:33 | PC.NURSE ---
Blood glucose note: Rn Medical Inpatient Services left message with [facility] Triage providing update of blood glucose of 547 this morning. Resident has had no hyperglycemic signs noted with resident denying symptoms when asked. VS: B/P 149/63, P 82, R 16, T 97.3, O2 sat 97% on RA. Water encouraged. Resident has been given both Levemir and Humalog insulins per current orders in place and is eating breakfast at this time. Per latest order on 12/27/22 from CHIEF STEWARD/STEWARDESS: Update provider if patient has had 2 consecutive blood sugar values above 500. Rn Medical Inpatient Services updated Blood Glucose Assessment Intervention to reflect latest order. CHIEF STEWARD/STEWARDESS is scheduled to visit [facility] today. Resident reports, I guess I shouldn't have had that banana for a snack last night. Nursing to continue to monitor.
--- NOTE | 2023-01-08 12:59 | PC.NURSE ---
Order note: LINA Delgado changed order for Nystatin Powder to BID PRN.
--- NOTE | 2023-01-08 13:13 | PC.SPIRITC ---
I provided visit for support and connection.
--- NOTE | 2023-01-08 13:54 | PC.NURSE ---
Order note: LINA Delgado wrote order for referral to vascular clinic per wound clinic recommendation due to abnormal arterial ultrasound results. Floor nurse reports Milton is supposed to call resident's sister with appointment date and time.
[2023-01-08] MEDS: MONTELUKAST 10 MG TABLET PO (20:07)
[2023-01-08] MEDS: PRAVASTATIN SODIUM 40 MG TABLET 80 MG PO (20:07)
[2023-01-09] MEDS: SENNOSIDES 1 TAB TABLET 2 TAB PO ×2 (07:44→16:01)
[2023-01-09] MEDS: ASPIRIN 81 MG TABLET EC PO (07:44)
[2023-01-09] MEDS: FLUTICASONE PROPION SALMETEROL 1 EACH IH ×2 (07:44→16:00)
[2023-01-09] MEDS: guaiFENesin 600 MG TAB.ER.12H 1200 MG PO ×2 (07:44→16:01)
[2023-01-09] MEDS: ACETAMINOPHEN 500 MG TABLET 1000 MG PO ×3 (07:44→20:14)
[2023-01-09] MEDS: FLUTICASONE PROPIONATE NASAL 1 SPRAY NOSTRIL-B ×2 (07:44→16:00)
[2023-01-09] MEDS: Tiotropium Bromide [Spiriva With Handihaler] 18 mcg capsule 1 EACH IH (07:44)
[2023-01-09] MEDS: HYDROXYUREA 500 MG CAPSULE PO (07:46)
[2023-01-09] MEDS: CETIRIZINE HCL 10 MG TABLET PO (07:46)
[2023-01-09] MEDS: INSULIN LISPRO 100 UNIT/ML VIAL SUBCUT ×2 (08:23→11:59)
[2023-01-09] MEDS: INSULIN LISPRO 100 UNIT/ML VIAL 10 UNIT SUBCUT ×3 (08:24→17:31)
--- NOTE | 2023-01-09 14:40 | PC.NURSE ---
Followed up on referral for resident to be seen by [facility], PH: [phone] for vascular consult. Spoke with intake who confirms they have recieved the referral and it will go to the providers for review (they will review imaging and diagnosis). Once this is completed, they will call resident's daughter to schedule. They note this could take an addition 1-2 weeks. Met with resident and sister at bedside. Informed them that someone from the [facility] should be following up with them in 1-2 weeks. Provided number for [facility] to call if they have questions or do not hear from them in the next two weeks. They confirm understanding.
--- NOTE | 2023-01-09 16:11 | PC.SPIRITC ---
I provided visit to family for check in.
[2023-01-09] MEDS: MONTELUKAST 10 MG TABLET PO (20:15)
[2023-01-09] MEDS: PRAVASTATIN SODIUM 40 MG TABLET 80 MG PO (20:16)
--- NOTE | 2023-01-09 21:48 | PC.NURSE ---
Resident blood glucose reading from fingerstick @ 17:00 was 73 and freestyle jeremy reading 71. Resident had no s/s of hypoglycemia and stated he felt fine. Was given 4 oz of grape juice and ate 2 orly crackers. Rechecked blood glucose at 1730 fingerstick read 100 and freestyle jeremy 84. Scheduled Humalog given.
--- NOTE | 2023-01-10 01:07 | PC.NURSE ---
Weekly Charting week 4. Vital signs reviewed: Vitals no concerns except has uncontrolled Blood Glucose reading, FLAVOR MAKER aware, recommended to check both freestyle and fingerstick QID. Update provider as needed. Comprehensive and temporary care plan reviewed with no changes made. No documented behavior in this month. Not on any Psychotropic medication. No changes in communication, hearing, vision, or orientation. Resident able to communicate needs verbally. Able to use call light properly. Hearing adequate. Has hx of mild cognitive impairment with some forgetfulness. Vision impairment corrected by glasses. All medications administered by license nurse with no adverse effects noted. Health condition is stable.
--- NOTE | 2023-01-10 07:07 | PC.NURSE ---
WEEKLY CHARTING - WEEK 4 : Communication,Hearing/Vision,Cognition/Behaviors,& Clinical Monitoring Vital signs reviewed with no concern. Comprehensive and temporary care plan reviewed with no changes made. Resident is not on any Psychotropic medication and there is no behavior issue this month. Resident main concern is the blood sugar monitoring which fluctuates from HIGH to LOW and still not stable. Resident is still on constant monitoring and stabilization of insulin. LARRY OPERATOR/MD are both aware of resident`s unstable blood glucose reading and he is currently on Freestyle sensor and fingerstick till 01/11/23 to ensure accuracy in both results. Staff to update provider as needed. No changes in communication, hearing, vision, or orientation. Has history of mild cognitive impairment with some forgetfulness. Resident able to communicate needs verbally and use call light when needed. There is no hearing impairment and vision impairment corrected by glasses. All medications administered by license nurse with no adverse effects noted.
[2023-01-10] MEDS: FLUTICASONE PROPIONATE NASAL 1 SPRAY NOSTRIL-B ×2 (07:30→16:36)
[2023-01-10] MEDS: ASPIRIN 81 MG TABLET EC PO (07:30)
[2023-01-10] MEDS: FLUTICASONE PROPION SALMETEROL 1 EACH IH ×2 (07:30→16:36)
[2023-01-10] MEDS: ACETAMINOPHEN 500 MG TABLET 1000 MG PO ×3 (07:30→20:47)
[2023-01-10] MEDS: guaiFENesin 600 MG TAB.ER.12H 1200 MG PO ×2 (07:31→16:36)
[2023-01-10] MEDS: INSULIN LISPRO 100 UNIT/ML VIAL SUBCUT ×2 (07:31→11:43)
[2023-01-10] MEDS: HYDROXYUREA 500 MG CAPSULE PO (07:32)
[2023-01-10] MEDS: INSULIN LISPRO 100 UNIT/ML VIAL 10 UNIT SUBCUT ×3 (07:32→17:04)
[2023-01-10] MEDS: Tiotropium Bromide [Spiriva With Handihaler] 18 mcg capsule 1 EACH IH (07:54)
[2023-01-10] MEDS: CETIRIZINE HCL 10 MG TABLET PO (07:54)
[2023-01-10] MEDS: SENNOSIDES 1 TAB TABLET 2 TAB PO ×2 (07:54→16:36)
[2023-01-10] MEDS: PRAVASTATIN SODIUM 40 MG TABLET 80 MG PO (20:47)
[2023-01-10] MEDS: MONTELUKAST 10 MG TABLET PO (20:47)
[2023-01-11] MEDS: FLUTICASONE PROPIONATE NASAL 1 SPRAY NOSTRIL-B ×2 (07:42→16:25)
[2023-01-11] MEDS: ACETAMINOPHEN 500 MG TABLET 1000 MG PO ×3 (07:42→19:54)
[2023-01-11] MEDS: FLUTICASONE PROPION SALMETEROL 1 EACH IH ×2 (07:42→16:25)
[2023-01-11] MEDS: guaiFENesin 600 MG TAB.ER.12H 1200 MG PO ×2 (07:42→16:25)
[2023-01-11] MEDS: ASPIRIN 81 MG TABLET EC PO (07:42)
[2023-01-11] MEDS: HYDROXYUREA 500 MG CAPSULE PO (07:42)
[2023-01-11] MEDS: CETIRIZINE HCL 10 MG TABLET PO (07:43)
[2023-01-11] MEDS: SENNOSIDES 1 TAB TABLET 2 TAB PO ×2 (07:43→16:25)
[2023-01-11] MEDS: Tiotropium Bromide [Spiriva With Handihaler] 18 mcg capsule 1 EACH IH (07:43)
[2023-01-11] MEDS: INSULIN LISPRO 100 UNIT/ML VIAL 10 UNIT SUBCUT ×3 (08:18→17:11)
[2023-01-11] MEDS: INSULIN LISPRO 100 UNIT/ML VIAL SUBCUT (08:18)
--- NOTE | 2023-01-11 11:25 | PC.NURSE ---
Addendum entered by Faustina Knott RN 01/11/23 12:19: Resident return from wound clinic at 1210. Treatment as follows 1. Clean the wound with wound cleanser 2. Pour Betadine on gauze so that its wet but not dripping 3.Put Betadine gauze on the wound and another dry gauze on top of that 4. Place Kerlix around to keep in place 5. Secured with Tubigrip Original Note: Wound clinic: Resident left to wound clinic at 1130 .
[2023-01-11] MEDS: PRAVASTATIN SODIUM 40 MG TABLET 80 MG PO (19:54)
[2023-01-11] MEDS: MONTELUKAST 10 MG TABLET PO (19:54)
[2023-01-12] MEDS: FLUTICASONE PROPIONATE NASAL 1 SPRAY NOSTRIL-B ×2 (07:18→15:56)
[2023-01-12] MEDS: ASPIRIN 81 MG TABLET EC PO (07:18)
[2023-01-12] MEDS: guaiFENesin 600 MG TAB.ER.12H 1200 MG PO ×2 (07:18→15:56)
[2023-01-12] MEDS: HYDROXYUREA 500 MG CAPSULE PO (07:18)
[2023-01-12] MEDS: FLUTICASONE PROPION SALMETEROL 1 EACH IH ×2 (07:18→15:56)
[2023-01-12] MEDS: ACETAMINOPHEN 500 MG TABLET 1000 MG PO ×3 (07:18→19:55)
[2023-01-12] MEDS: SENNOSIDES 1 TAB TABLET 2 TAB PO ×2 (07:19→15:56)
[2023-01-12] MEDS: Tiotropium Bromide [Spiriva With Handihaler] 18 mcg capsule 1 EACH IH (07:19)
[2023-01-12] MEDS: CETIRIZINE HCL 10 MG TABLET PO (07:19)
[2023-01-12] MEDS: INSULIN LISPRO 100 UNIT/ML VIAL 10 UNIT SUBCUT ×3 (08:15→17:32)
[2023-01-12] MEDS: INSULIN LISPRO 100 UNIT/ML VIAL SUBCUT (08:16)
--- NOTE | 2023-01-12 17:05 | PC.NURSE ---
Glucose: Resident blood glucose at 1630 is 57 recheck with fingerstick and is 53, alert and oriented per baseline and no signs of hypoglycemia noted, became angry due to low blood glucose slamming his clip board on his bed side table stating this damn place is not giving me enough food' Storage Management Consultant did explain to him that he was given his schedule humalog and per shift report his noon blood glucose was 142 also 2 pm snack was given by Am nurse. Resident given a rice crispy bar and cart of milk, glucose recheck and is 91.
[2023-01-12] MEDS: MONTELUKAST 10 MG TABLET PO (19:55)
[2023-01-12] MEDS: PRAVASTATIN SODIUM 40 MG TABLET 80 MG PO (19:55)
[2023-01-13 07:00] VITALS: BP 104/61; PULSE 61; RESP 18; TEMP 36.5; O2SAT 98; BMI 20.9
[2023-01-13] MEDS: ACETAMINOPHEN 500 MG TABLET 1000 MG PO ×3 (07:25→20:16)
[2023-01-13] MEDS: FLUTICASONE PROPIONATE NASAL 1 SPRAY NOSTRIL-B ×2 (07:26→15:39)
[2023-01-13] MEDS: Tiotropium Bromide [Spiriva With Handihaler] 18 mcg capsule 1 EACH IH (07:26)
[2023-01-13] MEDS: CETIRIZINE HCL 10 MG TABLET PO (07:26)
[2023-01-13] MEDS: ASPIRIN 81 MG TABLET EC PO (07:26)
[2023-01-13] MEDS: SENNOSIDES 1 TAB TABLET 2 TAB PO ×2 (07:26→15:39)
[2023-01-13] MEDS: FLUTICASONE PROPION SALMETEROL 1 EACH IH ×2 (07:26→15:39)
[2023-01-13] MEDS: HYDROXYUREA 500 MG CAPSULE PO (07:26)
[2023-01-13] MEDS: guaiFENesin 600 MG TAB.ER.12H 1200 MG PO ×2 (07:26→15:39)
[2023-01-13] MEDS: INSULIN LISPRO 100 UNIT/ML VIAL 10 UNIT SUBCUT ×3 (08:20→17:11)
[2023-01-13] MEDS: INSULIN LISPRO 100 UNIT/ML VIAL SUBCUT (08:20)
[2023-01-13] MEDS: MONTELUKAST 10 MG TABLET PO (20:16)
[2023-01-13] MEDS: PRAVASTATIN SODIUM 40 MG TABLET 80 MG PO (20:16)
[2023-01-14] MEDS: guaiFENesin 600 MG TAB.ER.12H 1200 MG PO ×2 (07:10→15:31)
[2023-01-14] MEDS: ACETAMINOPHEN 500 MG TABLET 1000 MG PO ×3 (07:10→19:03)
[2023-01-14] MEDS: ASPIRIN 81 MG TABLET EC PO (07:10)
[2023-01-14] MEDS: FLUTICASONE PROPIONATE NASAL 1 SPRAY NOSTRIL-B ×2 (07:10→15:31)
[2023-01-14] MEDS: FLUTICASONE PROPION SALMETEROL 1 EACH IH ×2 (07:10→15:31)
[2023-01-14] MEDS: HYDROXYUREA 500 MG CAPSULE PO (07:11)
[2023-01-14] MEDS: CETIRIZINE HCL 10 MG TABLET PO (07:12)
[2023-01-14] MEDS: SENNOSIDES 1 TAB TABLET 2 TAB PO ×2 (07:12→15:31)
[2023-01-14] MEDS: Tiotropium Bromide [Spiriva With Handihaler] 18 mcg capsule 1 EACH IH (07:12)
[2023-01-14] MEDS: INSULIN LISPRO 100 UNIT/ML VIAL 10 UNIT SUBCUT ×3 (08:23→16:57)
[2023-01-14] MEDS: INSULIN LISPRO 100 UNIT/ML VIAL SUBCUT (16:56)
[2023-01-14] MEDS: PRAVASTATIN SODIUM 40 MG TABLET 80 MG PO (19:03)
[2023-01-14] MEDS: MONTELUKAST 10 MG TABLET PO (19:03)
--- NOTE | 2023-01-14 21:34 | PC.NURSE ---
Resident on Day 2 no BM. Resident refused Milk of Mag, reporting that he has a BM every day. Resident reported he had BM today.
[2023-01-15] MEDS: FLUTICASONE PROPIONATE NASAL 1 SPRAY NOSTRIL-B ×2 (08:03→16:09)
[2023-01-15] MEDS: FLUTICASONE PROPION SALMETEROL 1 EACH IH ×2 (08:03→16:09)
[2023-01-15] MEDS: ASPIRIN 81 MG TABLET EC PO (08:03)
[2023-01-15] MEDS: ACETAMINOPHEN 500 MG TABLET 1000 MG PO ×3 (08:03→19:56)
[2023-01-15] MEDS: guaiFENesin 600 MG TAB.ER.12H 1200 MG PO ×2 (08:03→16:09)
[2023-01-15] MEDS: Tiotropium Bromide [Spiriva With Handihaler] 18 mcg capsule 1 EACH IH (08:04)
[2023-01-15] MEDS: SENNOSIDES 1 TAB TABLET 2 TAB PO ×2 (08:04→16:09)
[2023-01-15] MEDS: HYDROXYUREA 500 MG CAPSULE PO (08:04)
[2023-01-15] MEDS: CETIRIZINE HCL 10 MG TABLET PO (08:04)
[2023-01-15] MEDS: INSULIN LISPRO 100 UNIT/ML VIAL 10 UNIT SUBCUT ×3 (08:14→17:06)
--- NOTE | 2023-01-15 10:32 | PC.NURSE ---
Spoke with ADMINISTRATIVE OFFICE MANAGER/Jennifer about recommendation from pharmacist to have resident's use of hydroxyurea dose reviewed due to it's possible impact on his blood sugar levels. Per ADMINISTRATIVE OFFICE MANAGER, resident's Freestyle reader is likely impacted by the medication, but a reduction in the dose would not likely impact his blood sugars directly. Med review paper charting reviewed and signed by provider - placed in resident's medical records binder.
[2023-01-15] MEDS: MONTELUKAST 10 MG TABLET PO (19:56)
[2023-01-15] MEDS: PRAVASTATIN SODIUM 40 MG TABLET 80 MG PO (19:56)
[2023-01-16] MEDS: ASPIRIN 81 MG TABLET EC PO (07:35)
[2023-01-16] MEDS: FLUTICASONE PROPIONATE NASAL 1 SPRAY NOSTRIL-B ×2 (07:35→16:26)
[2023-01-16] MEDS: FLUTICASONE PROPION SALMETEROL 1 EACH IH ×2 (07:35→16:26)
[2023-01-16] MEDS: ACETAMINOPHEN 500 MG TABLET 1000 MG PO ×3 (07:35→20:40)
[2023-01-16] MEDS: HYDROXYUREA 500 MG CAPSULE PO (07:36)
[2023-01-16] MEDS: guaiFENesin 600 MG TAB.ER.12H 1200 MG PO ×2 (07:36→16:26)
[2023-01-16] MEDS: CETIRIZINE HCL 10 MG TABLET PO (07:37)
[2023-01-16] MEDS: Tiotropium Bromide [Spiriva With Handihaler] 18 mcg capsule 1 EACH IH (07:37)
[2023-01-16] MEDS: SENNOSIDES 1 TAB TABLET 2 TAB PO ×2 (07:37→16:26)
[2023-01-16] MEDS: INSULIN LISPRO 100 UNIT/ML VIAL SUBCUT (08:14)
[2023-01-16] MEDS: INSULIN LISPRO 100 UNIT/ML VIAL 10 UNIT SUBCUT ×3 (08:15→17:30)
--- NOTE | 2023-01-16 08:33 | PC.NURSE ---
Skin/wound note: This morning resident reported, my heel is bleeding through my sock (referring to L heel). Data Solutions Architect noted dried drainage to L gripper sock though this was noted to be Betadine used for gauze dressing. Left heel wound measures approximately 6.4 cm x 6 cm in size today with 4.5 cm x 4.4 cm of eschar tissue noted to wound. Tissue surrounding eschar noted to be pink & bright red. Wound also is noted to have small area of slough tissue located to proximal end of eschar tissue. Scant amount of brown drainage with foul odor noted to old dressing materials upon removal though foul odor is not a new finding. Right heel wound measures approximately 8 cm x 7 cm in size today with 4 cm x 4 cm of eschar tissue noted to wound. Tissue surrounding eschar noted to be pink in color. Scant amount of brown drainage with foul odor noted to old dressing materials upon removal though foul odor is not a new finding. Resident tolerated dressing changes well and denies pain to bilateral heels when asked. Resident is scheduled to be seen in wound clinic on 01/18/23 for further wound treatment. SHAN and MOOSE updated regarding findings.
--- NOTE | 2023-01-16 12:03 | PC.NURSE ---
Informational note: Air purifier has been placed in resident's room for odor control due to odor from heel wounds. Log Check Scaler asked resident's permission before doing this task and purifier has been placed out of resident's walking path.
[2023-01-16] MEDS: MONTELUKAST 10 MG TABLET PO (20:55)
[2023-01-16] MEDS: PRAVASTATIN SODIUM 40 MG TABLET 80 MG PO (20:56)
[2023-01-17] MEDS: ACETAMINOPHEN 500 MG TABLET 1000 MG PO ×3 (07:51→20:07)
[2023-01-17] MEDS: guaiFENesin 600 MG TAB.ER.12H 1200 MG PO ×2 (07:51→16:23)
[2023-01-17] MEDS: ASPIRIN 81 MG TABLET EC PO (07:51)
[2023-01-17] MEDS: FLUTICASONE PROPION SALMETEROL 1 EACH IH ×2 (07:51→16:23)
[2023-01-17] MEDS: FLUTICASONE PROPIONATE NASAL 1 SPRAY NOSTRIL-B ×2 (07:51→16:23)
[2023-01-17] MEDS: SENNOSIDES 1 TAB TABLET 2 TAB PO ×2 (07:52→16:23)
[2023-01-17] MEDS: CETIRIZINE HCL 10 MG TABLET PO (07:52)
[2023-01-17] MEDS: HYDROXYUREA 500 MG CAPSULE PO (07:52)
[2023-01-17] MEDS: Tiotropium Bromide [Spiriva With Handihaler] 18 mcg capsule 1 EACH IH (07:52)
[2023-01-17] MEDS: INSULIN LISPRO 100 UNIT/ML VIAL 10 UNIT SUBCUT ×3 (08:27→17:11)
--- NOTE | 2023-01-17 15:32 | PC.PHA1 ---
OPERATIONS SUPERVISOR PHARMACIST'S MEDICATION REVIEW: MEDICATION MONITORING:No antipsychotic medications IRREGULARITY OR COMMENTS:Patient's last high blood sugar was early December as of this note blood glucoses have not been fluctuating. Current insulin regimen showing lower blood glucose trend which patient is not accustomed to, staff is checking BG via finger sticks and automated on body sensor. SUGGESTED COURSE OF ACTION TAKEN:All care providers closely monitoring patient's blood glucose and therefore at this time no recommended changes.
[2023-01-17] MEDS: PRAVASTATIN SODIUM 40 MG TABLET 80 MG PO (20:07)
[2023-01-17] MEDS: MONTELUKAST 10 MG TABLET PO (20:07)
[2023-01-18] MEDS: ACETAMINOPHEN 500 MG TABLET 1000 MG PO ×3 (07:20→19:22)
[2023-01-18] MEDS: FLUTICASONE PROPIONATE NASAL 1 SPRAY NOSTRIL-B ×2 (07:20→15:23)
[2023-01-18] MEDS: guaiFENesin 600 MG TAB.ER.12H 1200 MG PO ×2 (07:20→15:23)
[2023-01-18] MEDS: SENNOSIDES 1 TAB TABLET 2 TAB PO ×2 (07:20→15:23)
[2023-01-18] MEDS: FLUTICASONE PROPION SALMETEROL 1 EACH IH ×2 (07:20→15:23)
[2023-01-18] MEDS: HYDROXYUREA 500 MG CAPSULE PO (07:20)
[2023-01-18] MEDS: ASPIRIN 81 MG TABLET EC PO (07:20)
[2023-01-18] MEDS: CETIRIZINE HCL 10 MG TABLET PO (07:21)
[2023-01-18] MEDS: Tiotropium Bromide [Spiriva With Handihaler] 18 mcg capsule 1 EACH IH (07:21)
[2023-01-18] MEDS: INSULIN LISPRO 100 UNIT/ML VIAL SUBCUT ×2 (08:17→16:29)
[2023-01-18] MEDS: INSULIN LISPRO 100 UNIT/ML VIAL 10 UNIT SUBCUT ×3 (08:18→16:30)
--- NOTE | 2023-01-18 13:19 | PC.NURSE ---
Resident went to wound clinic at 1130 today and return to the unit at 1245. The staff informed that the wound was found to be dirty and infected. Ordered as follows from treating provider Vicente Yanez: 1. X-ray of the Left and right Heel 2. Ordered Augmentine
--- NOTE | 2023-01-18 13:24 | PC.NURSE ---
Resident left for wound clinic at 1120 and came back at 1245 hours. Wound staff informed that the wound was infection with strong odor. They have send culture from the wound to the Lab. Orders from the treating provider Vicente Yanez is as follows: 1. X-ray of the left and right heel 2. Started on Augmentin 875/125mg PO BID for 14 days 3. Next appt Thursday 01/25 at 1030, 01/31 at 2pm and Thursday 02/08 dx0230 4. Vascular Apt is currently schedule on the 02/28/23 at 4pm at [facility], however sister to call and get an earlier appt next week (NICK) and have them call wound clinic if they need further information.
--- NOTE | 2023-01-18 13:37 | PC.NURSE ---
Wound Cleaning instructions as follows: 1. Clean the wound with Dakin solution 0.25% 2. Use Adaptic non-adhering dressing 3x8 inch and cut to the size of wound and apply to wound bed 3 Apply IodoSorb gel to wound bed 4. Apply Dermacea Abdominal pad 8x10 inch to cover wound and primary dressing 5.Secured with conforming Stretch gauze bandage 2 x 75 inch to keep the abdominal pad in place 6. Secured with Tubigrip to hold the gauze in place.
--- NOTE | 2023-01-18 14:42 | PC.NURSE ---
Vascular Appt : Resident managed to get an early vascular appt on the 01/23/2023 at 09[facility]. Family will arrange transport and bring him . Staff to provide early breakfast for resident at 0745- 0800.
--- NOTE | 2023-01-18 15:47 | PC.NURSE ---
Resident returned to LT with new orders from wound clinic. Concern that resident is developing in necrotic heel wounds. bilateral foot X-ray ordered and completed (awaiting results). Augmentin PO ordered fore resident. Referral to Podiatry sent urgently by [facility]. Wound cultures taken and sent to lab. Resident has appointment with Vasular surgery for consult on 01/23/23. New wound care orders received. RN/Faustina sent request to pharmacy for 1/4 strength Dakins Solution. Wound care instructions updated on interventions. Wound care to be done Saturday (after bath), Sat, and Saturday (at wound clinic). SEWING TECHNIQUES DEMONSTRATOR to do dressing at LT on Saturday and Sat for assessment. Resident informed of plan.
--- NOTE | 2023-01-18 16:06 | PC.NURSE ---
Resident received physician orders from Wound Clinic 01/18/23: Dakins solution half strength 0.25% solution. Use to cleanse heel wounds. Pour on gauze and clean well. Allow to dry or dab dry, then apply dressing. Use 3 times a week and as needed. Renata Zhang CNP. Order faxed to [facility] 01/18/23-nk
[2023-01-18] MEDS: MONTELUKAST 10 MG TABLET PO (19:23)
[2023-01-18] MEDS: PRAVASTATIN SODIUM 40 MG TABLET 80 MG PO (19:23)
[2023-01-18] MEDS: AMOXICILLIN/CLAVULANATE 875 mg/125 mg TABLET PO (19:54)
--- NOTE | 2023-01-18 20:49 | PC.NURSE ---
Aidan notified facility via fax that the Dakins 0.25% solution is not covered by insurance and that a 15 day supply will cost $473.00. Sister Joyce notified. Sister denied payment responsibility, also reported [facility] doesn't have $473.00, tell them to find something else to use.
--- NOTE | 2023-01-18 20:54 | PC.NURSE ---
Xray of heels completed 01/18/23 15:30. No results yet.
[2023-01-19] MEDS: ACETAMINOPHEN 500 MG TABLET 1000 MG PO ×3 (07:01→19:05)
[2023-01-19] MEDS: ASPIRIN 81 MG TABLET EC PO (07:01)
[2023-01-19] MEDS: FLUTICASONE PROPIONATE NASAL 1 SPRAY NOSTRIL-B ×2 (07:02→15:13)
[2023-01-19] MEDS: FLUTICASONE PROPION SALMETEROL 1 EACH IH ×2 (07:02→15:13)
[2023-01-19] MEDS: AMOXICILLIN/CLAVULANATE 875 mg/125 mg TABLET PO ×2 (07:02→15:12)
[2023-01-19] MEDS: guaiFENesin 600 MG TAB.ER.12H 1200 MG PO ×2 (07:03→15:13)
[2023-01-19] MEDS: HYDROXYUREA 500 MG CAPSULE PO (07:04)
[2023-01-19] MEDS: SENNOSIDES 1 TAB TABLET 2 TAB PO ×2 (07:04→15:13)
[2023-01-19] MEDS: CETIRIZINE HCL 10 MG TABLET PO (07:05)
[2023-01-19] MEDS: Tiotropium Bromide [Spiriva With Handihaler] 18 mcg capsule 1 EACH IH (07:05)
[2023-01-19] MEDS: INSULIN LISPRO 100 UNIT/ML VIAL 10 UNIT SUBCUT ×3 (08:31→16:43)
[2023-01-19] MEDS: INSULIN LISPRO 100 UNIT/ML VIAL SUBCUT ×3 (08:31→16:42)
--- NOTE | 2023-01-19 09:55 | PC.NURSE ---
Blood Sugar: Blood sugar read high on Dexcom, 401 with finger stick with no s/s of hyperglycemia
[2023-01-19] MEDS: PRAVASTATIN SODIUM 40 MG TABLET 80 MG PO (19:09)
[2023-01-19] MEDS: MONTELUKAST 10 MG TABLET PO (19:09)
[2023-01-20] MEDS: guaiFENesin 600 MG TAB.ER.12H 1200 MG PO ×2 (07:06→15:16)
[2023-01-20] MEDS: ACETAMINOPHEN 500 MG TABLET 1000 MG PO ×3 (07:06→19:25)
[2023-01-20] MEDS: FLUTICASONE PROPIONATE NASAL 1 SPRAY NOSTRIL-B ×2 (07:06→15:16)
[2023-01-20] MEDS: ASPIRIN 81 MG TABLET EC PO (07:06)
[2023-01-20] MEDS: AMOXICILLIN/CLAVULANATE 875 mg/125 mg TABLET PO ×2 (07:06→15:15)
[2023-01-20] MEDS: FLUTICASONE PROPION SALMETEROL 1 EACH IH ×2 (07:06→15:16)
[2023-01-20] MEDS: SENNOSIDES 1 TAB TABLET 2 TAB PO ×2 (07:08→15:16)
[2023-01-20] MEDS: Tiotropium Bromide [Spiriva With Handihaler] 18 mcg capsule 1 EACH IH (07:08)
[2023-01-20] MEDS: HYDROXYUREA 500 MG CAPSULE PO (07:08)
[2023-01-20] MEDS: CETIRIZINE HCL 10 MG TABLET PO (07:09)
[2023-01-20] MEDS: INSULIN LISPRO 100 UNIT/ML VIAL SUBCUT ×3 (08:36→16:56)
[2023-01-20] MEDS: INSULIN LISPRO 100 UNIT/ML VIAL 10 UNIT SUBCUT ×3 (08:36→16:57)
[2023-01-20] MEDS: PRAVASTATIN SODIUM 40 MG TABLET 80 MG PO (19:25)
[2023-01-20] MEDS: MONTELUKAST 10 MG TABLET PO (19:25)
[2023-01-21] MEDS: ASPIRIN 81 MG TABLET EC PO (07:12)
[2023-01-21] MEDS: ACETAMINOPHEN 500 MG TABLET 1000 MG PO ×3 (07:12→20:57)
[2023-01-21] MEDS: FLUTICASONE PROPIONATE NASAL 1 SPRAY NOSTRIL-B ×2 (07:13→16:06)
[2023-01-21] MEDS: CETIRIZINE HCL 10 MG TABLET PO (07:13)
[2023-01-21] MEDS: Tiotropium Bromide [Spiriva With Handihaler] 18 mcg capsule 1 EACH IH (07:13)
[2023-01-21] MEDS: AMOXICILLIN/CLAVULANATE 875 mg/125 mg TABLET PO ×2 (07:13→16:06)
[2023-01-21] MEDS: HYDROXYUREA 500 MG CAPSULE PO (07:13)
[2023-01-21] MEDS: guaiFENesin 600 MG TAB.ER.12H 1200 MG PO ×2 (07:13→16:06)
[2023-01-21] MEDS: SENNOSIDES 1 TAB TABLET 2 TAB PO ×2 (07:13→16:07)
[2023-01-21] MEDS: FLUTICASONE PROPION SALMETEROL 1 EACH IH ×2 (07:13→16:06)
[2023-01-21] MEDS: INSULIN LISPRO 100 UNIT/ML VIAL 10 UNIT SUBCUT ×3 (08:18→17:44)
[2023-01-21 09:34] VITALS: BP 147/65; PULSE 72; RESP 18; TEMP 36.7; O2SAT 95; BMI 21.1
[2023-01-21] MEDS: INSULIN LISPRO 100 UNIT/ML VIAL SUBCUT (11:53)
--- NOTE | 2023-01-21 15:06 | PC.SPIRITC ---
I provided visit for support and connection.
--- NOTE | 2023-01-21 16:04 | PC.NURSE ---
Met with resident at bedside to perform bilateral heel wound care. Per nursing report, resident had order for 1/4 strength Dakins solution for wound cleansing, but this was not covered by his insurance and out of pocket cost was >$400. Family declined to pay out of pocket for solution. Wounds gently cleansed with mild soap and water. Pat dry. Wounds measured: RLE 4cm x 4.5cm x JESSICA LLE 4cm x 4.5cm x JESSICA. Adaptic Vaseline guaze applied to wound. Iodosorb gel applied to Vaseline guaze and covered with ABD pad. Secured with rolled guaze and tape. Tubigrip gently applied over dressing to help reinforce it. Mining Technician socks over dressing for transfers. Resident tolerated procedure well.
[2023-01-21] MEDS: MONTELUKAST 10 MG TABLET PO (20:58)
[2023-01-21] MEDS: PRAVASTATIN SODIUM 40 MG TABLET 80 MG PO (20:58)
[2023-01-22] MEDS: ACETAMINOPHEN 500 MG TABLET 1000 MG PO ×3 (07:41→20:03)
[2023-01-22] MEDS: HYDROXYUREA 500 MG CAPSULE PO (07:42)
[2023-01-22] MEDS: SENNOSIDES 1 TAB TABLET 2 TAB PO ×2 (07:42→16:28)
[2023-01-22] MEDS: FLUTICASONE PROPION SALMETEROL 1 EACH IH ×2 (07:42→16:28)
[2023-01-22] MEDS: Tiotropium Bromide [Spiriva With Handihaler] 18 mcg capsule 1 EACH IH (07:42)
[2023-01-22] MEDS: guaiFENesin 600 MG TAB.ER.12H 1200 MG PO ×2 (07:42→16:28)
[2023-01-22] MEDS: ASPIRIN 81 MG TABLET EC PO (07:42)
[2023-01-22] MEDS: CETIRIZINE HCL 10 MG TABLET PO (07:42)
[2023-01-22] MEDS: FLUTICASONE PROPIONATE NASAL 1 SPRAY NOSTRIL-B ×2 (07:42→16:28)
[2023-01-22] MEDS: AMOXICILLIN/CLAVULANATE 875 mg/125 mg TABLET PO ×2 (07:42→16:28)
[2023-01-22] MEDS: INSULIN LISPRO 100 UNIT/ML VIAL SUBCUT ×3 (07:44→17:07)
[2023-01-22] MEDS: INSULIN LISPRO 100 UNIT/ML VIAL 10 UNIT SUBCUT ×3 (08:15→17:08)
[2023-01-22] MEDS: PRAVASTATIN SODIUM 40 MG TABLET 80 MG PO (20:04)
[2023-01-22] MEDS: MONTELUKAST 10 MG TABLET PO (20:04)
[2023-01-23] MEDS: guaiFENesin 600 MG TAB.ER.12H 1200 MG PO ×2 (07:05→14:50)
[2023-01-23] MEDS: AMOXICILLIN/CLAVULANATE 875 mg/125 mg TABLET PO ×2 (07:05→14:50)
[2023-01-23] MEDS: ASPIRIN 81 MG TABLET EC PO (07:05)
[2023-01-23] MEDS: ACETAMINOPHEN 500 MG TABLET 1000 MG PO ×2 (07:05→12:33)
[2023-01-23] MEDS: FLUTICASONE PROPION SALMETEROL 1 EACH IH ×2 (07:05→14:50)
[2023-01-23] MEDS: FLUTICASONE PROPIONATE NASAL 1 SPRAY NOSTRIL-B ×2 (07:05→14:50)
[2023-01-23] MEDS: CETIRIZINE HCL 10 MG TABLET PO (07:06)
[2023-01-23] MEDS: SENNOSIDES 1 TAB TABLET 2 TAB PO ×2 (07:06→14:50)
[2023-01-23] MEDS: HYDROXYUREA 500 MG CAPSULE PO (07:06)
[2023-01-23] MEDS: Tiotropium Bromide [Spiriva With Handihaler] 18 mcg capsule 1 EACH IH (07:06)
[2023-01-23] MEDS: INSULIN LISPRO 100 UNIT/ML VIAL SUBCUT ×2 (07:29→12:34)
[2023-01-23] MEDS: INSULIN LISPRO 100 UNIT/ML VIAL 10 UNIT SUBCUT ×2 (07:29→12:42)
--- NOTE | 2023-01-23 12:34 | PC.NURSE ---
Return: Back from vascular consult with recommendation of hospital admission for further evaluation and work up.
--- NOTE | 2023-01-23 14:01 | PC.NURSE ---
Resident returned from Vascular appointment today with Dr. Fowler at [facility] (PH: [phone]). Resident returned with physician order to recommended hospital admission for further evaluation and workup. Spoke with resident's sister who states that they would like Merle to admit to [facility], but since there is a waitlist, resident's sister will be contacted when a bed becomes available. This headline writer called and left message with Vascular RN coordinator and requested notes from today's visit be faxed to: [phone]. Also requested they call us to let us know when it is expected that resident will admit and what information they will need from us to send with him. Waiting for return call. Wound care completed with resident. Resident was premedicated by bedside RN prior to wound care. Bilateral heel wounds gently washed with soap and water (1/4 strength Dakins solution not yet available) and pat dry. Vaseline gauze and Iodosorb gel applied to wound bed. Covered with 4x4 gauze and secured with rolled gauze and tape. Tubigrip gently applied over dressing to reinforce. Resident tolerated well. Received call from RN/Soraya ([phone]) with Vascular office who states she will send over information regarding visit from today. She notes that resident will be admitted for Podiatry evaluation and care for infected wound. She recommends sending resident with a Facesheet, MAR and any other pertinent information. This headline writer will pass along to RN/FIELD SERVICE COORDINATOR staff at [facility] to prepare for resident admission.
--- NOTE | 2023-01-23 14:06 | PC.SPIRITC ---
I provided visit with family for support and connection.
--- NOTE | 2023-01-23 21:29 | PC.NURSE ---
Resident left facility with sister and brother @ 14:55, Recommendation to be admitted to [place]. Was given scheduled 1600 meds prior to leaving. RN called process description writer from [employer] for report.
--- NOTE | 2023-01-28 15:03 | PC.NURSE ---
Resident returned from [facility] today and had a Medicare Part A qualifying hospital stay from 01/23/23-01/28/23. Today will be his first day of Medicare due to PT/OT, daily wound care of an unstageable bilateral heel wounds and an oral antibiotic. Sister Isael notified of Medicare Advantage benefit and UR sent information for prior authorization.
[2023-01-28] MEDS: AMOXICILLIN/CLAVULANATE 875 mg/125 mg TABLET PO (15:44)
[2023-01-28] MEDS: FLUTICASONE PROPION SALMETEROL 1 EACH IH (15:45)
[2023-01-28] MEDS: FLUTICASONE PROPIONATE NASAL 1 SPRAY NOSTRIL-B (15:45)
[2023-01-28] MEDS: SENNOSIDES 1 TAB TABLET 2 TAB PO (15:46)
[2023-01-28] MEDS: guaiFENesin 600 MG TAB.ER.12H 1200 MG PO (15:46)
--- NOTE | 2023-01-28 16:34 | PC.NURSE ---
Resident returned from admission at [facility] where he was evaluated by Podiatry for his wounds and Vascular for his blood flow. Angiogram completed on 01/25. Resident returned with new orders for PT/OT to eval. Dose changes to Guaifenesin and Acetaminophen updated in computer. Resident is to remain on oral antibiotic (Augmentin) for 10 additional days. ABX order updated in computer. Faxed orders to [facility] pharmacy for verification and [place] pharmacy. Orders written under PHOTOGRAPHIC REPRODUCTION TECHNICIAN, Jennifer Delgado since Hospital provider who discharged resident from [place] was not in computer. DC orders written by Joy Kline MD.
[2023-01-28 17:06] VITALS: BP 142/61; PULSE 64; RESP 16; TEMP 36.9; O2SAT 90
[2023-01-28] MEDS: INSULIN LISPRO 100 UNIT/ML VIAL 10 UNIT SUBCUT (17:16)
[2023-01-28] MEDS: PRAVASTATIN SODIUM 40 MG TABLET 80 MG PO (20:04)
[2023-01-28] MEDS: MONTELUKAST 10 MG TABLET PO (20:04)
[2023-01-28 21:03] VITALS: BP 124/68; PULSE 65; RESP 18; TEMP 36.2; O2SAT 99
[2023-01-29 01:00] VITALS: BP 123/75; PULSE 71; RESP 18; TEMP 36.7; O2SAT 95
[2023-01-29 05:00] VITALS: BP 146/68; PULSE 69; RESP 18; TEMP 36.6; O2SAT 96
[2023-01-29] MEDS: AMOXICILLIN/CLAVULANATE 875 mg/125 mg TABLET PO ×2 (07:25→16:17)
[2023-01-29] MEDS: guaiFENesin 600 MG TAB.ER.12H PO ×2 (07:25→16:17)
[2023-01-29] MEDS: FLUTICASONE PROPIONATE NASAL 1 SPRAY NOSTRIL-B ×2 (07:25→16:17)
[2023-01-29] MEDS: ASPIRIN 81 MG TABLET EC PO (07:25)
[2023-01-29] MEDS: FLUTICASONE PROPION SALMETEROL 1 EACH IH ×2 (07:25→16:17)
[2023-01-29] MEDS: SENNOSIDES 1 TAB TABLET 2 TAB PO ×2 (07:26→16:17)
[2023-01-29] MEDS: HYDROXYUREA 500 MG CAPSULE PO (07:26)
[2023-01-29] MEDS: Tiotropium Bromide [Spiriva With Handihaler] 18 mcg capsule 1 EACH IH (07:42)
[2023-01-29] MEDS: CETIRIZINE HCL 10 MG TABLET PO (07:43)
[2023-01-29] MEDS: INSULIN LISPRO 100 UNIT/ML VIAL 10 UNIT SUBCUT ×3 (07:45→17:05)
[2023-01-29] MEDS: INSULIN LISPRO 100 UNIT/ML VIAL SUBCUT (07:46)
[2023-01-29 09:29] VITALS: BP 130/70; PULSE 70; RESP 20; TEMP 36.3; O2SAT 96
[2023-01-29 13:30] VITALS: BP 126/76; PULSE 68; RESP 18; TEMP 36.2; O2SAT 96
[2023-01-29 16:41] VITALS: BP 132/67; PULSE 59; RESP 18; TEMP 36.9; O2SAT 98
[2023-01-29] MEDS: PRAVASTATIN SODIUM 40 MG TABLET 80 MG PO (20:26)
[2023-01-29] MEDS: MONTELUKAST 10 MG TABLET PO (20:26)
[2023-01-30] MEDS: guaiFENesin 600 MG TAB.ER.12H PO ×2 (07:07→15:19)
[2023-01-30] MEDS: ASPIRIN 81 MG TABLET EC PO (07:07)
[2023-01-30] MEDS: SENNOSIDES 1 TAB TABLET 2 TAB PO ×2 (07:08→15:19)
[2023-01-30] MEDS: HYDROXYUREA 500 MG CAPSULE PO (07:08)
[2023-01-30] MEDS: FLUTICASONE PROPIONATE NASAL 1 SPRAY NOSTRIL-B ×2 (07:09→15:18)
[2023-01-30] MEDS: FLUTICASONE PROPION SALMETEROL 1 EACH IH ×2 (07:09→15:18)
[2023-01-30] MEDS: Tiotropium Bromide [Spiriva With Handihaler] 18 mcg capsule 1 EACH IH (07:09)
[2023-01-30] MEDS: CETIRIZINE HCL 10 MG TABLET PO (07:09)
[2023-01-30] MEDS: INSULIN LISPRO 100 UNIT/ML VIAL SUBCUT (08:08)
[2023-01-30] MEDS: INSULIN LISPRO 100 UNIT/ML VIAL 10 UNIT SUBCUT ×3 (08:09→17:26)
[2023-01-30] MEDS: AMOXICILLIN/CLAVULANATE 875 mg/125 mg TABLET PO ×2 (08:31→15:18)
--- NOTE | 2023-01-30 14:35 | NUTR.NU ---
Nutrition Follow-up: RDN monitoring high risk due to past weight loss. No significant weight change on 30 day, 90 day, or 180 day weight. Weight history 157lbs 12/30/22, 161lbs 10/21/22, and 162lbs 08/10/22. Meal intakes not consistently recorded, unable to assess at this time. Resident states that he has been eating well and notes feeling full and satisfied following meals. Resident is currently receiving diabetic friendly snacks twice daily. Resident is generally consuming 100% of snacks. Diabetic friendly snacks twice daily provides ~300 kcals and ~15 grams of protein. Resident is receiving a diabetic diet with double protein portions, per MD order. With historically good intakes and snacks twice daily resident is likely meeting his estimated nutritional needs. No additional nutrition interventions at this time. RDN will continue to monitor and follow-up prn.
--- NOTE | 2023-01-30 14:45 | PC.NURSE ---
Discussed use of surgical shoes at IDT meeting today as there is some concern that shoes are a fall/tripping hazard. Met with resident who states that he is also concerned about wearing the shoes as they are uncomfortable and feel like they are going to trip [him]. This tag writer informed him that we don't want him to fall, so he should continue to wear his previous shoes as long as he is taking them off as soon as he is not ambulating. Resident confirms understanding. Footwear will be discussed with /Eunice with Podiatry at his follow up appointment (which was supposed to be today, but had to be rescheduled due to MD sick). Resident's sister will be in today or tomorrow and provide information about rescheduled appointment. Informed IDT team of decision and requested input if they have concerns.
[2023-01-30] MEDS: MONTELUKAST 10 MG TABLET PO (20:11)
[2023-01-30] MEDS: PRAVASTATIN SODIUM 40 MG TABLET 80 MG PO (20:11)
--- NOTE | 2023-01-30 21:54 | PC.NURSE ---
Glucose assessment: 1999 blood glucose was 56. Given rice Krispie bar,chocolate milk and a turkey sandwich to eat as the night goes on. At 2044 rechecked and got 76. Told him to eat the [place] sandwich and has a can of diet denice sandee. Checked 30 minutes later and he [id number]. let him check 20 minutes later and he was 114. Gave him his dose of insulin.
--- NOTE | 2023-01-31 03:20 | PC.NURSE ---
WEEKLY CHARTING-WEEK 2 -MOBILITY Reviewed resident's recent vital signs and noted a few elevated BP, staff will continue to monitor weekly and update provider as needed. Temporary and comprehensive care plans, as of 11/28/2022 Resident may now use Delroy sensor to monitor blood glucose levels, no other changes made. . Resident is independent with transfers, ambulates with walker, he is able to get in and out of bed and reposition himself as needed. Right 1/4 side rail up at all times to promote independent and self-repositioning. No other assistive devices needed for mobility. Resident is on low risk of fall due to fall risk assessment done on the 11/27/22 . Interventions to prevent falls include keeping bed locked and in low position with call light in reach and non skid footwear.
--- NOTE | 2023-01-31 06:54 | PC.NURSE ---
Weekly Charting, Week 2 - Mobility: Comprehensive and temporary care plan reviewed. No changes made, & nothing added to temporary care plan. Resident is independent with transfers, ambulation, bed/chair mobility. Ambulates with a walker. Has bilateral side rails up at all times to promote independence with bed mobility. Vital signs reviewed. Accu checks unstable. Continue accu checks QID & PRN. Provider to review. Fall: No falls the last month. Remains a low fall risk according to assessment done on 12/03/22. Fall interventions: call light within reach at all times, bed in low position with breaks locked, non skid footwear/gripper socks, area free of clutter.
[2023-01-31] MEDS: ASPIRIN 81 MG TABLET EC PO (07:56)
[2023-01-31] MEDS: AMOXICILLIN/CLAVULANATE 875 mg/125 mg TABLET PO ×2 (07:56→16:26)
[2023-01-31] MEDS: FLUTICASONE PROPION SALMETEROL 1 EACH IH ×2 (07:56→16:26)
[2023-01-31] MEDS: guaiFENesin 600 MG TAB.ER.12H PO ×2 (07:56→16:26)
[2023-01-31] MEDS: FLUTICASONE PROPIONATE NASAL 1 SPRAY NOSTRIL-B ×2 (07:56→16:26)
[2023-01-31] MEDS: INSULIN LISPRO 100 UNIT/ML VIAL SUBCUT ×2 (07:57→11:46)
[2023-01-31] MEDS: HYDROXYUREA 500 MG CAPSULE PO (07:58)
[2023-01-31] MEDS: INSULIN LISPRO 100 UNIT/ML VIAL 10 UNIT SUBCUT ×3 (07:58→17:17)
[2023-01-31] MEDS: CETIRIZINE HCL 10 MG TABLET PO (07:59)
[2023-01-31] MEDS: SENNOSIDES 1 TAB TABLET 2 TAB PO ×2 (07:59→16:27)
[2023-01-31] MEDS: Tiotropium Bromide [Spiriva With Handihaler] 18 mcg capsule 1 EACH IH (07:59)
--- NOTE | 2023-01-31 13:08 | PC.NURSE ---
Medicare Charting: Resident was admitted for uncontrolled D/M with infection of bilateral heels (unstageable pressure injuries) Vitals sign are as follows : T 97.3 P 74 B/P 128/74 R 18 and O2 96% . Resident is going to wound clinic today at 1400 hours. He is currently on oral antibiotics Amox/K Clav 875-125 1 tab BD. Resident currently has no sign of infection and pain free. Resident is able to ambulate to the bathroom and dining area and do all his ADLs Goals for discharge is for the wound to heal and no infection present.
--- NOTE | 2023-01-31 16:44 | PC.NURSE ---
Resdient returned from visit at Wound Clinic. New orders for wound care include: cleanse bilateral heel wounds with 1/4 strength Dakins Solution. Cut Adaptic to size of wound. Apply Iodosorb gel to Adaptic and place on wound (Adaptic side down). Cover with ABD pad and secure with rolled guaze and tape. Apply Tubigrip size E to keep dressing in place. Change dressing MW. Wound clinic to change on Fridays. Per resident, Substance Abuse Services Director will not be able to see resident until March. Resident to follow up with wound clinic weekly on Fridays for now.
[2023-01-31] MEDS: MONTELUKAST 10 MG TABLET PO (20:21)
[2023-01-31] MEDS: PRAVASTATIN SODIUM 40 MG TABLET 80 MG PO (20:21)
[2023-02-01] MEDS: ASPIRIN 81 MG TABLET EC PO (07:05)
[2023-02-01] MEDS: AMOXICILLIN/CLAVULANATE 875 mg/125 mg TABLET PO ×2 (07:05→15:48)
[2023-02-01] MEDS: guaiFENesin 600 MG TAB.ER.12H PO ×2 (07:06→15:48)
[2023-02-01] MEDS: FLUTICASONE PROPIONATE NASAL 1 SPRAY NOSTRIL-B ×2 (07:06→15:48)
[2023-02-01] MEDS: FLUTICASONE PROPION SALMETEROL 1 EACH IH ×2 (07:06→15:48)
[2023-02-01] MEDS: CETIRIZINE HCL 10 MG TABLET PO (07:07)
[2023-02-01] MEDS: SENNOSIDES 1 TAB TABLET 2 TAB PO ×2 (07:07→15:49)
[2023-02-01] MEDS: Tiotropium Bromide [Spiriva With Handihaler] 18 mcg capsule 1 EACH IH (07:07)
[2023-02-01] MEDS: HYDROXYUREA 500 MG CAPSULE PO (07:07)
[2023-02-01] MEDS: INSULIN LISPRO 100 UNIT/ML VIAL SUBCUT (08:41)
[2023-02-01] MEDS: INSULIN LISPRO 100 UNIT/ML VIAL 10 UNIT SUBCUT ×3 (08:42→17:02)
--- NOTE | 2023-02-01 10:04 | PC.NURSE ---
Resident was seen yesterday at the Wound clinic and they reduced his daily wound cares to 3x/week. Met with UR and agreed need to issue a NOMNC. I gave resident the NOMNC and instructed if he wishes to appeal to call the [facility] number. His last covered day will be 02/03/23.
--- NOTE | 2023-02-01 10:05 | PC.NURSE ---
Admission dx: infection to bilateral heels d/t unstageable pressure injuries o Describe location and nature of wound: bilateral heels o Daily VS: B/P 121/73, R18, O298%, T98.1, P65 o Nursing: Daily wound cares as ordered, describe interventions performed. o ABO use: Yes o s/s of further infection none o Goals for discharge: wound to be healed, no infection present.
[2023-02-01] MEDS: PRAVASTATIN SODIUM 40 MG TABLET 80 MG PO (19:28)
[2023-02-01] MEDS: MONTELUKAST 10 MG TABLET PO (19:28)
[2023-02-02] MEDS: SENNOSIDES 1 TAB TABLET 2 TAB PO ×2 (07:22→15:29)
[2023-02-02] MEDS: CETIRIZINE HCL 10 MG TABLET PO (07:22)
[2023-02-02] MEDS: FLUTICASONE PROPION SALMETEROL 1 EACH IH ×2 (07:22→15:29)
[2023-02-02] MEDS: Tiotropium Bromide [Spiriva With Handihaler] 18 mcg capsule 1 EACH IH (07:22)
[2023-02-02] MEDS: guaiFENesin 600 MG TAB.ER.12H PO ×2 (07:22→15:29)
[2023-02-02] MEDS: ASPIRIN 81 MG TABLET EC PO (07:22)
[2023-02-02] MEDS: AMOXICILLIN/CLAVULANATE 875 mg/125 mg TABLET PO ×2 (07:22→15:28)
[2023-02-02] MEDS: FLUTICASONE PROPIONATE NASAL 1 SPRAY NOSTRIL-B ×2 (07:22→15:29)
[2023-02-02] MEDS: HYDROXYUREA 500 MG CAPSULE PO (07:22)
[2023-02-02] MEDS: INSULIN LISPRO 100 UNIT/ML VIAL 10 UNIT SUBCUT ×3 (08:47→17:10)
--- NOTE | 2023-02-02 09:53 | PC.NURSE ---
Admission dx: infection to bilateral heels d/t unstageable pressure injuries o Describe location and nature of wound: bilateral heels o Daily VS: B/P 118/64, P67, R18, T98.2, O2 98% o Nursing: Daily wound cares as ordered, describe interventions performed. o ABO use: Yes o s/s of further infection none o Goals for discharge: wound to be healed, no infection present.
[2023-02-02] MEDS: INSULIN LISPRO 100 UNIT/ML VIAL SUBCUT ×2 (11:44→17:10)
[2023-02-02] MEDS: PRAVASTATIN SODIUM 40 MG TABLET 80 MG PO (19:24)
[2023-02-02] MEDS: MONTELUKAST 10 MG TABLET PO (19:24)
[2023-02-03] MEDS: FLUTICASONE PROPIONATE NASAL 1 SPRAY NOSTRIL-B ×2 (08:37→15:16)
[2023-02-03] MEDS: FLUTICASONE PROPION SALMETEROL 1 EACH IH ×2 (08:37→15:16)
[2023-02-03] MEDS: AMOXICILLIN/CLAVULANATE 875 mg/125 mg TABLET PO ×2 (08:37→15:16)
[2023-02-03] MEDS: ASPIRIN 81 MG TABLET EC PO (08:37)
[2023-02-03] MEDS: Tiotropium Bromide [Spiriva With Handihaler] 18 mcg capsule 1 EACH IH (08:38)
[2023-02-03] MEDS: CETIRIZINE HCL 10 MG TABLET PO (08:38)
[2023-02-03] MEDS: guaiFENesin 600 MG TAB.ER.12H PO ×2 (08:38→15:17)
[2023-02-03] MEDS: SENNOSIDES 1 TAB TABLET 2 TAB PO ×2 (08:38→15:17)
[2023-02-03] MEDS: INSULIN LISPRO 100 UNIT/ML VIAL 10 UNIT SUBCUT ×3 (08:38→17:23)
[2023-02-03] MEDS: HYDROXYUREA 500 MG CAPSULE PO (08:38)
--- NOTE | 2023-02-03 09:47 | PC.NURSE ---
Admission dx: infection to bilateral heels d/t unstageable pressure injuries o Describe location and nature of wound: bilateral heels o Daily VS: B/P 126/66 P68 R20 t97.8 O2 96 o Nursing: Daily wound cares as ordered, describe interventions performed. o ABO use: Yes o s/s of further infection none o Goals for discharge: wound to be healed, no infection present.
[2023-02-03] MEDS: INSULIN LISPRO 100 UNIT/ML VIAL SUBCUT (11:33)
[2023-02-03] MEDS: PRAVASTATIN SODIUM 40 MG TABLET 80 MG PO (19:18)
[2023-02-03] MEDS: MONTELUKAST 10 MG TABLET PO (19:18)
[2023-02-04] MEDS: AMOXICILLIN/CLAVULANATE 875 mg/125 mg TABLET PO ×2 (07:22→15:11)
[2023-02-04] MEDS: HYDROXYUREA 500 MG CAPSULE PO (07:22)
[2023-02-04] MEDS: guaiFENesin 600 MG TAB.ER.12H PO ×2 (07:22→15:12)
[2023-02-04] MEDS: FLUTICASONE PROPION SALMETEROL 1 EACH IH ×2 (07:22→15:11)
[2023-02-04] MEDS: ASPIRIN 81 MG TABLET EC PO (07:22)
[2023-02-04] MEDS: FLUTICASONE PROPIONATE NASAL 1 SPRAY NOSTRIL-B ×2 (07:22→15:11)
[2023-02-04] MEDS: Tiotropium Bromide [Spiriva With Handihaler] 18 mcg capsule 1 EACH IH (07:23)
[2023-02-04] MEDS: SENNOSIDES 1 TAB TABLET 2 TAB PO ×2 (07:23→15:12)
[2023-02-04] MEDS: CETIRIZINE HCL 10 MG TABLET PO (07:23)
[2023-02-04 07:47] VITALS: BMI 21.7
[2023-02-04] MEDS: INSULIN LISPRO 100 UNIT/ML VIAL 10 UNIT SUBCUT ×3 (08:29→17:05)
[2023-02-04] MEDS: INSULIN LISPRO 100 UNIT/ML VIAL SUBCUT ×2 (08:29→17:04)
[2023-02-04 09:28] VITALS: BP 122/66; PULSE 86; RESP 18; TEMP 36.7; O2SAT 95
--- NOTE | 2023-02-04 11:36 | PC.NURSE ---
Weight note: Staff noted resident's weight to be 160 unclothed on bath scale this morning which is a 4 pound increase since last week's weight of 156 on same scale. Manager Tax requested tub scale be recalibrated as staff have noted several resident weights on the unit to be increased when using this scale. Resident has no edema noted and has no complaints of shortness of breath. Staff to obtain reweigh after tub scale has been recalibrated.
--- NOTE | 2023-02-04 16:38 | PC.SOCIAL ---
Completed preadmission screening for resident to admit to [facility]. Confirmation #[id number].
[2023-02-04] MEDS: MONTELUKAST 10 MG TABLET PO (19:15)
[2023-02-04] MEDS: PRAVASTATIN SODIUM 40 MG TABLET 80 MG PO (19:15)
[2023-02-05] MEDS: ASPIRIN 81 MG TABLET EC PO (07:31)
[2023-02-05] MEDS: guaiFENesin 600 MG TAB.ER.12H PO ×2 (07:32→16:28)
[2023-02-05] MEDS: FLUTICASONE PROPIONATE NASAL 1 SPRAY NOSTRIL-B ×2 (07:32→16:28)
[2023-02-05] MEDS: FLUTICASONE PROPION SALMETEROL 1 EACH IH ×2 (07:32→16:28)
[2023-02-05] MEDS: HYDROXYUREA 500 MG CAPSULE PO (07:33)
[2023-02-05] MEDS: AMOXICILLIN/CLAVULANATE 875 mg/125 mg TABLET PO ×2 (07:33→16:28)
[2023-02-05] MEDS: CETIRIZINE HCL 10 MG TABLET PO (07:35)
[2023-02-05] MEDS: Tiotropium Bromide [Spiriva With Handihaler] 18 mcg capsule 1 EACH IH (07:36)
[2023-02-05] MEDS: SENNOSIDES 1 TAB TABLET 2 TAB PO (07:41)
[2023-02-05] MEDS: INSULIN LISPRO 100 UNIT/ML VIAL 10 UNIT SUBCUT ×3 (08:08→17:20)
[2023-02-05] MEDS: INSULIN LISPRO 100 UNIT/ML VIAL SUBCUT (08:08)
--- NOTE | 2023-02-05 11:50 | PC.NURSE ---
Order: ENGINE MANAGERSandy here. Tylenol 500 mg Q6H PRN & Nystatin powder BID PRN discontinued.
[2023-02-05] MEDS: SENNOSIDES 1 TAB TABLET PO (16:29)
[2023-02-05] MEDS: PRAVASTATIN SODIUM 40 MG TABLET 80 MG PO (20:33)
[2023-02-05] MEDS: MONTELUKAST 10 MG TABLET PO (20:33)
--- NOTE | 2023-02-06 02:34 | PC.NURSE ---
WEEKLY CHARTING WEEK 3 TOILETING AND SKIN Vital signs, no concerns. Blood sugar unstable, ELECTRONIC EQUIPMENT INSTALLER aware and monitored. Comprehensive and temporary care plan reviewed, no changes made, nothing added to temporary care plan. Resident is continent of bowel and bladder ( dribbles occasionally). Toilets self, Wears pull ups. Pads, pericares, clothing managed by self. Will ask for assist as needed. Skin:Resident has wound on both heels, got treatment 3 times a week ; using pillow and heel boots at all times to off load pressure. Skin is routinely checked on bath days and PRN. He goes to wound Clinic for treatment .
[2023-02-06] MEDS: FLUTICASONE PROPIONATE NASAL 1 SPRAY NOSTRIL-B ×2 (07:19→15:49)
[2023-02-06] MEDS: ASPIRIN 81 MG TABLET EC PO (07:19)
[2023-02-06] MEDS: Tiotropium Bromide [Spiriva With Handihaler] 18 mcg capsule 1 EACH IH (07:19)
[2023-02-06] MEDS: HYDROXYUREA 500 MG CAPSULE PO (07:19)
[2023-02-06] MEDS: guaiFENesin 600 MG TAB.ER.12H PO ×2 (07:19→15:49)
[2023-02-06] MEDS: AMOXICILLIN/CLAVULANATE 875 mg/125 mg TABLET PO ×2 (07:19→15:48)
[2023-02-06] MEDS: FLUTICASONE PROPION SALMETEROL 1 EACH IH ×2 (07:19→15:49)
[2023-02-06] MEDS: SENNOSIDES 1 TAB TABLET PO ×2 (07:19→15:49)
[2023-02-06] MEDS: CETIRIZINE HCL 10 MG TABLET PO (07:20)
--- NOTE | 2023-02-06 07:20 | PC.NURSE ---
Weekly Charting, Week 3 - Toileting: Comprehensive and temporary care plan reviewed. No changes made, and nothing added to temporary care plan. Resident is continent of bowel and bladder. Independent with all toileting needs including pads, john cares and clothing adjustment. Will ask for assist as needed. Wears pull ups. Vital signs reviewed. Blood sugar remains unstable, noted by providers. Continue weekly VS monitoring and accu checks QID. And refer to COBOL DEVELOPER/MD as needed. Skin: Has bilateral heel wounds managed by the wound clinic with dressing changes done on Fr. Fridays done at the wound center, [facility] by staff. Heel boots/pillow at all times to offload. Skin is checked routinely during cares and on bath day.
[2023-02-06] MEDS: INSULIN LISPRO 100 UNIT/ML VIAL SUBCUT ×2 (07:50→11:41)
[2023-02-06] MEDS: INSULIN LISPRO 100 UNIT/ML VIAL 10 UNIT SUBCUT ×3 (07:57→17:48)
--- NOTE | 2023-02-06 10:00 | PC.PHA1 ---
SCANNING TECH PHARMACIST'S MEDICATION REVIEW: MEDICATION MONITORING:No antipsychotic medications to monitor IRREGULARITY OR COMMENTS:Patient had wound care intervention since last review at [place] and continues to be followed by local wound care center. Augmentin regimen continues until 02/07/23. No other changes to patient's medication regimen, no changes to insulin regimen since early December. Blood glucose AM and PM checks have trended low and high, all caregivers continue to monitor. SUGGESTED COURSE OF ACTION TAKEN:No medication recommendations this review.
[2023-02-06] MEDS: PRAVASTATIN SODIUM 40 MG TABLET 80 MG PO (20:19)
[2023-02-06] MEDS: MONTELUKAST 10 MG TABLET PO (20:19)
[2023-02-07] MEDS: AMOXICILLIN/CLAVULANATE 875 mg/125 mg TABLET PO (07:01)
[2023-02-07] MEDS: guaiFENesin 600 MG TAB.ER.12H PO (07:01)
[2023-02-07] MEDS: ASPIRIN 81 MG TABLET EC PO (07:01)
[2023-02-07] MEDS: FLUTICASONE PROPION SALMETEROL 1 EACH IH (07:01)
[2023-02-07] MEDS: FLUTICASONE PROPIONATE NASAL 1 SPRAY NOSTRIL-B (07:01)
[2023-02-07] MEDS: HYDROXYUREA 500 MG CAPSULE PO (07:02)
[2023-02-07] MEDS: CETIRIZINE HCL 10 MG TABLET PO (07:03)
[2023-02-07] MEDS: SENNOSIDES 1 TAB TABLET PO (07:03)
[2023-02-07] MEDS: Tiotropium Bromide [Spiriva With Handihaler] 18 mcg capsule 1 EACH IH (07:03)
[2023-02-07] MEDS: INSULIN LISPRO 100 UNIT/ML VIAL 10 UNIT SUBCUT (08:23)
[2023-02-07] MEDS: INSULIN LISPRO 100 UNIT/ML VIAL SUBCUT (08:25)
--- NOTE | 2023-02-07 10:12 | PC.NURSE ---
RECAPITULATION NOTE: Resident was admitted to [facility] on 11/20/2022. 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 They discharged today to [facility] for ongoing care needs since [facility] is closing. Resident was sent with discharge orders, remaining supply of medications, Advance directives, signed active med list, active care plan and MDS. They did not require any opiates or anxiolytic medications. Belongings were inventoried and signed. Discharge summary completed by provider. Resident remains DNR/DNI - does not have POLST. Discharge orders and pertinent notes faxed to [facility] at [phone]. Resident was accompanied by RN/Faustina to the care center. All questions answered.?
--- NOTE | 2023-02-07 11:18 | PC.NURSE ---
Discharge: Resident discharge to [facility] d/t facility closure via hospital van. Sister present. All appropriate medications, medical records, personal belongings sent.
--- NOTE | 2023-02-08 14:10 | PC.NURSE ---
Telephone call to [facility] PH: [phone] to have them picker/puller resident's air mattress now that he has discharged. Youth Specialist states they will come to retrieve the mattress today.
== END 2023-02-07 11:22 | DRG 424 ==
PROVIDERS: Family Medicine; Admitting Provider Family Medicine; Family Provider Nurse Practitioner Gerontology; PCP Family Medicine; Visit Provider Family Medicine
DX: R73.9 Hyperglycemia, unspecified (principal); G31.84 Mild cognitive impairment of uncertain or unknown etiology; N18.9 Chronic kidney disease, unspecified; G47.33 Obstructive sleep apnea (adult) (pediatric); I10 Essential (primary) hypertension; J44.9 Chronic obstructive pulmonary disease, unspecified
CPT/HCPCS: 36415; 80048; 80053; 82728; 83540; 83550; 85025; 87631; 87635; 97161; 97165

== ENCOUNTER 2022-11-29 02:16 | Inpatient (IN) | payer OTHER, MEDICAID, SELFPAY ==
[2022-11-29] VITALS (33 sets, daily range): BP systolic 83–133; BP diastolic 30–67; PULSE 46–99; RESP 16; TEMP 36.2–37.4; O2SAT 87–100; BMI 24.1
--- NOTE | 2022-11-29 02:25 | ED_ITS ---
HPI - General Adult General Time Seen by Provider: 02:20 Date Seen: 11/29/22 Chief complaint: Unspecified Complaint, Adult Stated complaint: Hyperglycemia Time Seen by Provider: 11/29/22 02:29 Source: patient, RN notes reviewed and old records reviewed Mode of arrival: other Limitations: no limitations History of Present Illness HPI narrative: Patient is a very pleasant 77-year-old gentleman with a history of diabetes, chronic kidney disease, COPD who comes to the emergency room for evaluation of hyperglycemia. Patient notes that at supper last night blood sugar seemed to be high. He denies taking any excess juice or sugary foods in. He does agree that he has food in his room but states he really only eats what they give him. He notes that he feels fine except in the past hour he has had 2 episodes of vomiting. He denies belly pain, fever chills, I urinary difficulties. Patient denies any recent falls or poorly healing wounds. I spoke to nursing staff and at 1700 because of the elevated blood sugars they gave 10 units of him a log followed shortly thereafter by an additional 14 for a total of 24. Rechecks the blood sugar and it was still registering high and they gave an additional 4 units of Humalog. Patient also received 26 units of Levemir on the morning of 11/28/2022. He does not have a dose of long-acting wince Yelitza scheduled for last night. Related Data Home Medications Medication Instructions Recorded Confirmed aspirin 81 mg tablet,delayed 81 mg PO DAILY 08/10/22 11/20/22 release cetirizine 10 mg tablet 10 mg PO DAILY 08/10/22 11/20/22 hydroxyurea 500 mg capsule 500 mg PO DAILY 08/10/22 11/20/22 montelukast 10 mg tablet 10 mg PO HS 08/10/22 11/20/22 pravastatin 80 mg tablet 80 mg PO HS 08/10/22 11/20/22 acetaminophen 500 mg tablet 1,000 mg PO TID 08/18/22 11/20/22 fluticasone 500 mcg-salmeterol 50 1 inh inhalation BID 08/18/22 11/20/22 mcg/dose blistr powdr for inhalation (Advair Diskus) insulin aspart U-100 100 unit/mL 14 unit subcut TID 11/14/22 11/20/22 (3 mL) subcutaneous pen (Novolog FlexPen U-100 Insulin aspart) insulin detemir U-100 100 unit/mL 20 unit subcut DAILY 11/14/22 11/20/22 (3 mL) subcutaneous pen insulin detemir U-100 100 unit/mL 12 unit subcut .HS 11/14/22 11/20/22 (3 mL) subcutaneous pen (Levemir FlexPen) Previous Rx's Medication Instructions Recorded albuterol sulfate 90 mcg/actuation 2 puff inhalation Q2H PRN 08/14/22 aerosol inhaler (Ventolin HFA) shortness of breath or wheezing #8.5 grams fluticasone propionate 50 1 spray intranasal BID #16 grams 08/14/22 mcg/actuation nasal spray,suspension guaifenesin 600 mg tablet, 1,200 mg (2 x 600 mg) PO BID #90 08/14/22 extended release 12 hr (Mucinex) tabs sennosides 8.6 mg tablet (Senna 17.2 mg (2 x 8.6 mg) PO BID #60 08/14/22 Lax) tabs tiotropium bromide 18 mcg capsule 1 cap inhalation DAILY #60 08/14/22 with inhalation device (Spiriva inhalations with HandiHaler) insulin aspart U-100 100 unit/mL 1 sliding scale dose subcut TIDWM 11/15/22 (3 mL) subcutaneous pen (Novolog diabetes #15 mL FlexPen U-100 Insulin aspart) Allergies Allergy/AdvReac Type Severity Reaction Status Date / Time No Known Drug Allergies Allergy Verified 08/10/22 15:25 Review of Systems Status of ROS: Reports: 10 or more systems reviewed and unremarkable except as noted in History and below Const: Denies: fever, chills, change in weight or fatigue Eyes: Denies: blurry vision ENMT: Denies: throat pain, neck pain or difficulty swallowing Cardio: Denies: chest pain or shortness of breath with exertion Resp: Denies: shortness of breath or cough GI: Reports: nausea and vomiting; Denies: abdominal pain, diarrhea or difficulty swallowing : Denies: painful urination Musculo: Denies: back pain or neck pain Integ/Breast: Denies: rash, redness or skin tenderness Neuro: Denies: headache Endo: Denies: fatigue PFSH PFS Medical History Hyperosmolar hyperglycemic state (HHS) ?E11.00 - Type 2 diabetes mellitus with hyperosmolarity without nonketotic hyperglycemic-hyperosmolar coma (NKHHC) (ICD-10) Health care directive on file ?Z78.9 - Other specified health status (ICD-10) Severe chronic obstructive pulmonary disease ?J44.9 - Chronic obstructive pulmonary disease, unspecified (ICD-10) Mild cognitive impairment ?G31.84 - Mild cognitive impairment of uncertain or unknown etiology (ICD-10) History of poliomyelitis ?Z86.12 - Personal history of poliomyelitis (ICD-10) On home oxygen therapy ?Z99.81 - Dependence on supplemental oxygen (ICD-10) Thrombocythemia ?D75.839 - Thrombocytosis, unspecified (ICD-10) Chronic kidney disease ?N18.9 - Chronic kidney disease, unspecified (ICD-10) Obstructive sleep apnea ?G47.33 - Obstructive sleep apnea (adult) (pediatric) (ICD-10) Type 2 diabetes mellitus ?E11.9 - Type 2 diabetes mellitus without complications (ICD-10) Hypertension ?I10 - Essential (primary) hypertension (ICD-10) Closed right hip fracture ?S72.001A - Fracture of unspecified part of neck of right femur, initial encounter for closed fracture (ICD-10) Surgical History History of open reduction and internal fixation (ORIF) procedure ?Z98.890 - Other specified postprocedural states (ICD-10) History of cataract surgery ?Z98.49 - Cataract extraction status, unspecified eye (ICD-10) H/O foot surgery ?Z98.890 - Other specified postprocedural states (ICD-10) Family History Father Diabetes Mother Breast cancer Social History Narrative: Lived in [facility] until hip fracture in July. In [facility] for [facility]hab until 2 days ago. Discharge back to [facility] 2 days ago. Former smoker. Does not drink alcohol. Previous code status DNR. Patient is having troubles making decision about this tonight. Indicates that his brother Boo and sister Joyce should be making healthcare decisions. What is your current living situation: I presently have a place to live Problems where you live: no known problems In the past 12 months, utilities in danger of being shut off: no In the past 12 mos, have been you worried that your food would run out before you had money to buy more?: never true In the past 12 mos, the food you bought just didn't last and you didn't have money to buy more?: never true Highest level of school completed/degree received: high school graduate Smoking Status: Former smoker What tobacco products do you use: cigars and pipe Do you use any of these nicotine containing products: None Second hand tobacco smoke exposure: No How often do you have a drink containing alcohol: never How often do you have six or more drinks on one occasion: Never AUDIT-C Alcohol total score: 0 Non-prescribed substance use: denies use Caffeine: Yes How often does anyone, including family, friends and others, physically hurt you : How often does anyone, including family, friends and others, insult or talk down to you: How often does anyone, including family, friends and others, threaten you with harm: How often does anyone, including family, friends and others, scream or curse at you: service: No Exam Narrative: Exam Narrative: Patient is alert and oriented. Very pleasant gentleman. No acute distress. Eyes are clear. Speech is normal. Neck is supple. Good color. Heart with regular rate and rhythm. Lungs are clear bilaterally. Abdomen is soft and nontender. He has well-healed surgical scars on the right lower quadrant and over the right hip. Lower extremities with scant peripheral edema. Moving all extremities. Const: Vital Signs, click to edit/add: Vital Signs - 24 hr 11/29/22 02:26 11/29/22 02:30 11/29/22 03:30 Temperature 97.1 F L Pulse Rate Pulse Rate [Left P ulse Oximeter] 67 50 L 52 L Respiratory Rate 16 16 16 Blood Pressure Blood Pressure [Ri ght Upper Arm] 133/67 84/49 L 86/39 L Pulse Oximetry 97 94 97 Oxygen Delivery Me thod Room Air Room Air Room Air 11/29/22 04:00 11/29/22 04:00 11/29/22 04:06 Temperature Pulse Rate 46 L Pulse Rate [Left P ulse Oximeter] 48 L 54 L Respiratory Rate 16 16 Blood Pressure Blood Pressure [Ri ght Upper Arm] 83/30 L 91/32 L Pulse Oximetry 96 96 96 Oxygen Delivery Me thod Room Air Room Air 11/29/22 04:20 11/29/22 04:31 11/29/22 04:40 Temperature Pulse Rate 50 L 59 L 58 L Pulse Rate [Left P ulse Oximeter] Respiratory Rate Blood Pressure 91/36 L Blood Pressure [Ri ght Upper Arm] Pulse Oximetry 92 94 98 Oxygen Delivery Me thod 11/29/22 05:00 11/29/22 05:01 11/29/22 05:20 Temperature Pulse Rate 69 74 93 Pulse Rate [Left P ulse Oximeter] Respiratory Rate Blood Pressure 96/40 L Blood Pressure [Ri ght Upper Arm] Pulse Oximetry 98 98 99 Oxygen Delivery Me od 11/29/22 05:31 11/29/22 05:40 11/29/22 06:00 Temperature Pulse Rate 89 98 99 Pulse Rate [Left P ulse Oximeter] Respiratory Rate Blood Pressure 120/52 L Blood Pressure [Ri ght Upper Arm] Pulse Oximetry 87 L 98 98 Oxygen Delivery Me thod 11/29/22 06:01 11/29/22 06:02 11/29/22 06:20 Temperature Pulse Rate 96 96 98 Pulse Rate [Left P ulse Oximeter] Respiratory Rate Blood Pressure 123/48 L Blood Pressure [Ri ght Upper Arm] Pulse Oximetry 99 98 98 Oxygen Delivery Me od 11/29/22 06:31 11/29/22 06:40 11/29/22 07:00 Temperature Pulse Rate 99 95 94 Pulse Rate [Left P ulse Oximeter] Respiratory Rate Blood Pressure 122/53 L Blood Pressure [Ri ght Upper Arm] Pulse Oximetry 99 98 100 Oxygen Delivery Me od 11/29/22 07:01 Temperature Pulse Rate 93 Pulse Rate [Left P ulse Oximeter] Respiratory Rate Blood Pressure 114/48 L Blood Pressure [Ri ght Upper Arm] Pulse Oximetry 100 Oxygen Delivery Me thod Documenting provider has reviewed patient's vital signs: yes Course Reevaluation(s) Reevaluation #1: Patient noted to have blood sugar of 9O2 after initiation of insulin infusion. Chemistry panel pending at 0600 hours. Blood pressure improved after 2 L of saline. Continue at 0125 an hour. Vital Signs Vital signs: Initial Vital Signs Temperature 97.1 F L 11/29/22 02:26 Temperature Source Temporal Artery Scan 11/29/22 02:26 Pulse Rate 67 11/29/22 02:26 Pulse Rhythm Regular 11/29/22 02:26 Respiratory Rate 16 11/29/22 02:26 Blood Pressure 133/67 11/29/22 02:26 Blood Pressure Mean 89 11/29/22 02:26 Blood Pressure Position Semi-Fowlers 11/29/22 02:26 Pulse Oximetry 97 11/29/22 02:26 Oxygen Delivery Method Room Air 11/29/22 02:26 Vital Signs Temperature 97.1 F L 11/29/22 02:26 Pulse Rate 67 11/29/22 02:26 Respiratory Rate 16 11/29/22 02:26 Blood Pressure 133/67 11/29/22 02:26 Pulse Oximetry 97 11/29/22 02:26 Oxygen Delivery Method Room Air 11/29/22 02:26 Temperature 97.1 F L 11/29/22 02:26 Pulse Rate 93 11/29/22 07:01 Respiratory Rate 16 11/29/22 04:00 Blood Pressure 114/48 L 11/29/22 07:01 Pulse Oximetry 100 11/29/22 07:01 Oxygen Delivery Method Room Air 11/29/22 04:00 Medical Decision Making MDM Narrative Medical decision making narrative: 1. DKA-blood sugar elevated over 1000 and bicarb of 13. 2 L of normal saline ordered as well as 10 unit regular insulin IV push followed by insulin infusion. 2. Hyperkalemia-mild at 5.5. Will expect to see this drop over the next few hours. 3. Hypotension-systolic blood pressure soft in the 90s. Improved after 2 L of normal saline. 4. Anemia-appears to be chronic with previous recent values the same. 5. Disposition-admit to the unit. Spoke to RAQUEL who accepted patient. 0530-0 500 glucose is just over 900. Will increase insulin infusion to 10 units an hour. Third bag of normal saline hung at 0125 an hour. 0700 hours-patient noted to have potassium now at 4.2 as well as normalization of sodium. Creatinine 1.6 and glucose has now dropped to 815. Requesting straight cath as patient has not yet urinated. [id number] given to Dr. Oreilly hospitalist. Medical Records Medical records reviewed: Yes I reviewed the patient's medical records Lab Data Lab results reviewed: Yes I reviewed the patient's lab results Labs: Lab Results 11/29/22 11/29/22 11/29/22 Range/Units 02:28 02:50 05:00 WBC 6.55 (4.50-11.00) K/uL RBC 2.77 L (4.30-5.90) m/uL Hgb 9.8 L (13.5-17.5) gm/dL Hct 31.9 L (37.0-53.0) % MCV 115 H (80-100) fL MCH 35 H (26-34) pg MCHC 31 L (32-36) gm/dL RDW Coeff of Khushboo 13.1 (11.5-15.5) % Plt Count 358 (140-440) K/uL Neut % (Auto) 71.8 (42.0-72.0) % Lymph % (Auto) 24.1 (20-44) % [place] % (Auto) 1.7 (0.0-11.0) % Eos % (Auto) 1.7 (0.0-7.0) % Baso % (Auto) 0.2 (0.0-3.0) % Neut # (Auto) 4.71 (1.7-7.0) K/uL Lymph # (Auto) 1.58 (0.90-2.90) K/uL [place] # (Auto) 0.10 (0.00-0.90) K/UL Eos # (Auto) 0.11 (0.00-0.50) K/uL Baso # (Auto) 0.01 (0.00-0.30) K/uL Diff Slide Review Acceptable Review (Acceptable) Sodium 129 L (135-149) mmol/L Potassium 5.5 H (3.6-5.1) mmol/L Chloride 91 L (96-114) mmol/L Carbon Dioxide 13 L (20-32) mmol/L BUN 33 H (7-30) mg/dL Creatinine 1.6 H (0.5-1.5) mg/dL Estimated GFR 44 ml/min Glucose 1008 H* 902 H* (60-115) mg/dL Lactate 2.8 H (0.5-1.9) mmol/L Calcium 9.3 (8.4-10.6) mg/dL Total Bilirubin 0.6 (0.1-1.5) mg/dL AST 24 (12-35) U/L ALT 22 (4-50) U/L Alkaline Phosphatase 186 H (40-150) U/L Total Protein 6.7 (6.0-8.3) g/dL Albumin 4.0 (3.3-5.0) g/dL POC Troponin I 0.01 (0.01-0.04) ng/ml 11/29/22 Range/Units 06:05 WBC (4.50-11.00) K/uL RBC (4.30-5.90) m/uL Hgb (13.5-17.5) gm/dL Hct (37.0-53.0) % MCV (80-100) fL MCH (26-34) pg MCHC (32-36) gm/dL RDW Coeff of Khushboo (11.5-15.5) % Plt Count (140-440) K/uL Neut % (Auto) (42.0-72.0) % Lymph % (Auto) (20-44) % [place] % (Auto) (0.0-11.0) % Eos % (Auto) (0.0-7.0) % Baso % (Auto) (0.0-3.0) % Neut # (Auto) (1.7-7.0) K/uL Lymph # (Auto) (0.90-2.90) K/uL [place] # (Auto) (0.00-0.90) K/UL Eos # (Auto) (0.00-0.50) K/uL Baso # (Auto) (0.00-0.30) K/uL Diff Slide Review (Acceptable) Sodium 135 (135-149) mmol/L Potassium 4.2 (3.6-5.1) mmol/L Chloride 97 (96-114) mmol/L Carbon Dioxide 13 L (20-32) mmol/L BUN 33 H (7-30) mg/dL Creatinine 1.6 H (0.5-1.5) mg/dL Estimated GFR 44 ml/min Glucose 815 H* (60-115) mg/dL Lactate (0.5-1.9) mmol/L Calcium 8.6 (8.4-10.6) mg/dL Total Bilirubin (0.1-1.5) mg/dL AST (12-35) U/L ALT (4-50) U/L Alkaline Phosphatase (40-150) U/L Total Protein (6.0-8.3) g/dL Albumin (3.3-5.0) g/dL POC Troponin I (0.01-0.04) ng/ml Imaging Data Chest x-ray: Attestation: I have reviewed the pertinent imaging results. My impression: I do not note any acute lung markings. Radiologist's impression: The lung apices are excluded from the study on basis of patient positioning. Visualized lung stanley demonstrate emphysematous changes in the upper lobes. No effusion or large pneumothorax. No focal consolidation. Stable cardiac size. No acute osseous abnormality Critical Care Time Critical Care Time Critical Care Time: Yes Attestation: The patient required my highest level preparedness to intervene emergently and I personally spent this critical care time directly and personally managing the patient. This critical care time included: Obtaining a history; Examining the patient; Pulse oximetry; Ordering and reviewing of studies; Arranging urgent treatment with development of a management plan; Evaluation of patients response to treatment; Frequent reassessment discussions with other providers. This critical care time was performed to assess and manage the high probability of imminent life-threatening deterioration that could result in multiorgan failure. It was exclusive of separate billable procedures and treating other patients and teaching time. Total Critical Care Time in Minutes: 120 Discharge Plan Discharge Clinical Impression: Diabetic ketoacidosis Qualifiers: Diabetes mellitus type: other specified (including OSCAR) Diabetes mellitus complication detail: without coma Qualified Code(s): E13.10 - Other specified diabetes mellitus with ketoacidosis without coma Patient Disposition: Admitted As Observation Condition: Unchanged
--- NOTE | 2022-11-29 02:28 | CRLHL7_ITS ---
For Patients: As a result of the Cures Act, medical imaging exams and procedure reports are released immediately into your electronic medical record. You may view this report before your referring provider. If you have questions, please contact your health care provider. Indication: Hyperglycemia Technique: Chest 1 view Comparison: November 19, 2022 Findings/Impression: The lung apices are excluded from the study on basis of patient positioning. Visualized lung stanley demonstrate emphysematous changes in the upper lobes. No effusion or large pneumothorax. No focal consolidation. Stable cardiac size. No acute osseous abnormality. Dictated by Amaya Lowe MD @ 11/29/2022 4:02:15 AM (Electronically Signed)
[2022-11-29 02:54] LABS: Lactate* 2.8 mmol/L (0.5-1.9)
[2022-11-29 02:56] LABS: Basophils Absolute Auto 0.01 K/uL (0.00-0.30); Basophils Percent Auto 0.2 % (0.0-3.0); Eosinophils Absolute Auto 0.11 K/uL (0.00-0.50); Eosinophils Percent Auto 1.7 % (0.0-7.0); Hematocrit 31.9 % (37.0-53.0); Hemoglobin* 9.8 gm/dL (13.5-17.5); Immature Granulocytes Abs Auto 0.03 K/uL (0.00-0.30); Immature Granulocytes Pct Auto 0.5 %; Lymphocytes Absolute Auto 1.58 K/uL (0.90-2.90); Lymphocytes Percent Auto 24.1 % (20-44); Mean Corpuscular HGB Conc 31 gm/dL (32-36); Mean Corpuscular Hemoglobin 35 pg (26-34); Mean Corpuscular Volume 115 fL (80-100); Monocytes Percent Auto 1.7 % (0.0-11.0); Neutrophils Absolute Auto 4.71 K/uL (1.7-7.0); Neutrophils Percent Auto 71.8 % (42.0-72.0); Platelet Count* 358 K/uL (140-440); RDW Coefficient of Variation % 13.1 % (11.5-15.5); Red Blood Count 2.77 m/uL (4.30-5.90); White Blood Count* 6.55 K/uL (4.50-11.00)
[2022-11-29 02:57] LABS: Slide Review Acceptable Review (Acceptable); Slide Review Reflex Yes
[2022-11-29] MEDS: 0.9 % SODIUM CHLORIDE 1000 ml 1,000 ML IV ×2 (03:00→04:02)
[2022-11-29 03:03] LABS: Troponin, Point-of-Care* 0.01 ng/ml (0.01-0.04)
[2022-11-29 03:09] LABS: Chloride* 91 mmol/L (96-114)
[2022-11-29 03:10] LABS: Potassium* 5.5 mmol/L (3.6-5.1); Sodium* 129 mmol/L (135-149)
[2022-11-29 03:12] LABS: Aspartate Amino Transferase* 24 U/L (12-35); Bilirubin Total* 0.6 mg/dL (0.1-1.5); Carbon Dioxide* 13 mmol/L (20-32); Creatinine* 1.6 mg/dL (0.5-1.5); Estimated Glomerular Filt Rate 44 ml/min; Total Protein* 6.7 g/dL (6.0-8.3)
[2022-11-29 03:13] LABS: Alanine Aminotransferase* 22 U/L (4-50); Alkaline Phosphatase* 186 U/L (40-150); Blood Urea Nitrogen* 33 mg/dL (7-30); Calcium* 9.3 mg/dL (8.4-10.6)
[2022-11-29 03:21] LABS: Glucose* 1008 mg/dL (60-115)
[2022-11-29] MEDS: ONDANSETRON 2 MG/ML inj 4 MG IVP (03:44)
[2022-11-29] MEDS: INSULIN INF 100 UNIT/100 ML 100 UNIT/100 ML BAG 8 UNIT IVPB ×2 (03:50→12:53)
[2022-11-29 05:31] LABS: Glucose* 902 mg/dL (60-115)
[2022-11-29] MEDS: 0.9 % SODIUM CHLORIDE 1000 ml 1,000 ML 125 ML IV (05:57)
[2022-11-29 06:41] LABS: Chloride* 97 mmol/L (96-114); Potassium* 4.2 mmol/L (3.6-5.1); Sodium* 135 mmol/L (135-149)
[2022-11-29 06:44] LABS: Blood Urea Nitrogen* 33 mg/dL (7-30); Carbon Dioxide* 13 mmol/L (20-32); Creatinine* 1.6 mg/dL (0.5-1.5); Estimated Glomerular Filt Rate 44 ml/min
[2022-11-29 06:45] LABS: Calcium* 8.6 mg/dL (8.4-10.6)
[2022-11-29 06:58] LABS: Glucose* 815 mg/dL (60-115)
--- NOTE | 2022-11-29 07:29 | ED.NURSE ---
Rn to Rn report given. Pt taken to CCU 3
[2022-11-29 07:52] LABS: HCO3 VBG 18 mmol/L (21-28); Lactate* 2.8 mmol/L (0.5-1.9); PCO2 VBG 44 mmHG (40-50); PO2 VBG 39.1 mmHG (25-47)
--- NOTE | 2022-11-29 07:54 | PM.IMHP1 ---
Hospitalist- H&P: HPI History of Present Illness Date Seen: 11/29/22 Chief complaint: Hyperglycemia Narrative: ADMISSION HISTORY AND PHYSICAL - HOSPITALIST Chief Complaint: LONG-TERM CARE RESIDENT WITH ELEVATED BLOOD SUGARS AND VOMITING HPI: Patient is a 77 year male well known to our service. He has frequently been admitted for uncontrolled diabetes with complications. He was just discharged on the 20 of November to long-term care for hyperosmolar hyperglycemic state. The most previous admission with diabetic complication was likely due to living alone and not taking insulin. This admission he was in long-term care and was receiving insulin. His current regimen for insulin isdetemir at 26 units q.a.m. and sliding scale with mealtime insulin. He was in his normal state of health 1 day prior to admission. He had mild hyperglycemia but was ambulatory and baseline. Mild hyperglycemia for this patient is 300s. Last evening the bedside glucometer would not read his glucose level. They followed sliding scale insulin protocol. He started to vomit. They brought him to the ER. No fever. No abdominal pain. No chest pain. No cough. No skin rash. Initial blood sugar was greater than a 1000. His mentation was fairly normal. There was no respiratory distress. His initial bicarb was 13. He was started on an insulin drip. Hospital medicine team was asked to manage his DKA. ER COURSE: Insulin drip, fluids, chest x-ray CODE STATUS: Initially full code, discussion with patient he is now DNR DNI EMERGENCY CONTACT PLAN: Siblings per the EMR I've updated the PFSH, medications and allergies in the [facility] tabs. INVESTIGATIONS: LABS/MICRO/ECG/IMAGING Afebrile upon arrival to the emergency. Hypotensive at 84/49. Improved with fluids. Current blood pressure 114/48 with arrival to floor. Pulse ranged 50s to 90s. Regular. Respiratory rate 16 Pulse ox 90s on room air CBC reflects a normal white count. Stable hemoglobin for this month. Had originally been 05/23/2011 is. Has been 9.6 roughly in November. Initial blood sugar 1008, 902, 815 over treatment hours in the ED. Creatinine is up from a baseline of 0.8 -and is currently 1.6 Potassium is already dropped from 5.5 down to 4.2. Pseudo hyponatremia related to hyperglycemia has already corrected. Carbon dioxide has state at 13. No ABG or VBG drawn. Lactate originally 2.8 upon arrival, stat order at 7:32 a.m. repeat CXR The lung apices are excluded from the study on basis of patient positioning. Visualized lung stanley demonstrate emphysematous changes in the upper lobes. No effusion or large pneumothorax. No focal consolidation. Stable cardiac size. No acute osseous abnormality. REVIEW OF SYSTEMS: 12-point ROS completed with patient and negative unless otherwise stated in HPI or below. PHYSICAL EXAM: CONSTITUTIONAL: Conversive, good historian. A/O. Knows setting and context. VITAL SIGNS: see record. HEENT: Normocephalic, atraumatic. PERRL, EOMI, conjunctivae pink, no scleral icterus. Ears and nose externally normal. Pharynx normal. NECK: No JVD. No carotid bruit, no thyromegaly, no adenopathy. CHEST: Clear to auscultation bilaterally HEART: S1 and S2 normal. No harsh murmurs. Edema MUSCULOSKELETAL: No gross joint deformity or swelling. NEURO: Cranial nerves intact. Grossly intact. No asymmetric findings. SKIN: No rashes, petechiae, concerning changes PSYCHIATRIC: Euthymic. ADMIT TO MEDSURG: CCU DVT: Lovenox GI: PO intake Time spent: 70 minutes examining patient, conferring with family and patient, care staff, developing care plan [facility] Medical History (Updated 11/29/22 @ 09:20 by Miriam Oreilly MD) Health care directive on file ?Z78.9 - Other specified health status (ICD-10) Severe chronic obstructive pulmonary disease ?J44.9 - Chronic obstructive pulmonary disease, unspecified (ICD-10) Mild cognitive impairment ?G31.84 - Mild cognitive impairment of uncertain or unknown etiology (ICD-10) History of poliomyelitis ?Z86.12 - Personal history of poliomyelitis (ICD-10) On home oxygen therapy ?Z99.81 - Dependence on supplemental oxygen (ICD-10) Thrombocythemia ?D75.839 - Thrombocytosis, unspecified (ICD-10) Chronic kidney disease ?N18.9 - Chronic kidney disease, unspecified (ICD-10) Obstructive sleep apnea ?G47.33 - Obstructive sleep apnea (adult) (pediatric) (ICD-10) Type 2 diabetes mellitus ?E11.9 - Type 2 diabetes mellitus without complications (ICD-10) Hypertension ?I10 - Essential (primary) hypertension (ICD-10) Surgical History History of open reduction and internal fixation (ORIF) procedure ?Z98.890 - Other specified postprocedural states (ICD-10) History of cataract surgery ?Z98.49 - Cataract extraction status, unspecified eye (ICD-10) H/O foot surgery ?Z98.890 - Other specified postprocedural states (ICD-10) Family History Father Diabetes Mother Breast cancer Social History (Updated 11/29/22 @ 09:20 by Miriam Oreilly MD) Narrative: Resident of our [facility].. Former smoker. Does not drink alcohol. DNR DNI. Indicates that his brother Boo and sister Joyce should be making healthcare decisions. What is your current living situation: I presently have a place to live Problems where you live: no known problems In the past 12 months, utilities in danger of being shut off: no In the past 12 mos, have been you worried that your food would run out before you had money to buy more?: never true In the past 12 mos, the food you bought just didn't last and you didn't have money to buy more?: never true Highest level of school completed/degree received: high school graduate Smoking Status: Former smoker What tobacco products do you use: cigars and pipe Do you use any of these nicotine containing products: None Second hand tobacco smoke exposure: No How often do you have a drink containing alcohol: never How often do you have six or more drinks on one occasion: Never AUDIT-C Alcohol total score: 0 Non-prescribed substance use: denies use Caffeine: Yes How often does anyone, including family, friends and others, physically hurt you: How often does anyone, including family, friends and others, insult or talk down to you: How often does anyone, including family, friends and others, threaten you with harm: How often does anyone, including family, friends and others, scream or curse at you: service: No Meds Home Medications and Allergies Home Medications Medication Instructions Recorded Confirmed Type aspirin 81 mg tablet,delayed 81 mg PO DAILY 08/10/22 11/20/22 History release cetirizine 10 mg tablet 10 mg PO DAILY 08/10/22 11/20/22 History hydroxyurea 500 mg capsule 500 mg PO DAILY 08/10/22 11/20/22 History montelukast 10 mg tablet 10 mg PO HS 08/10/22 11/20/22 History pravastatin 80 mg tablet 80 mg PO HS 08/10/22 11/20/22 History acetaminophen 500 mg tablet 1,000 mg PO TID 08/18/22 11/20/22 History fluticasone 500 mcg-salmeterol 50 1 inh inhalation BID 08/18/22 11/20/22 History mcg/dose blistr powdr for inhalation (Advair Diskus) insulin detemir U-100 100 unit/mL 26 unit subcut DAILY 11/14/22 11/29/22 History (3 mL) subcutaneous pen Allergies Allergy/AdvReac Type Severity Reaction Status Date / Time No Known Drug Allergies Allergy Verified 08/10/22 15:25 Exam Const: Vital Signs, click to edit/add: Vital Signs - 24 hr 11/29/22 02:26 11/29/22 02:30 11/29/22 03:30 Temperature 97.1 F L Pulse Rate Pulse Rate [Left P ulse Oximeter] 67 50 L 52 L Respiratory Rate 16 16 16 Blood Pressure Blood Pressure [Ri ght Upper Arm] 133/67 84/49 L 86/39 L Pulse Oximetry 97 94 97 Oxygen Delivery Me thod Room Air Room Air Room Air 11/29/22 04:00 11/29/22 04:00 11/29/22 04:06 Temperature Pulse Rate 46 L Pulse Rate [Left P ulse Oximeter] 48 L 54 L Respiratory Rate 16 16 Blood Pressure Blood Pressure [Ri ght Upper Arm] 83/30 L 91/32 L Pulse Oximetry 96 96 96 Oxygen Delivery Me od Room Air Room Air 11/29/22 04:20 11/29/22 04:31 11/29/22 04:40 Temperature Pulse Rate 50 L 59 L 58 L Pulse Rate [Left P ulse Oximeter] Respiratory Rate Blood Pressure 91/36 L Blood Pressure [Ri ght Upper Arm] Pulse Oximetry 92 94 98 Oxygen Delivery Me thod 11/29/22 05:00 11/29/22 05:01 11/29/22 05:20 Temperature Pulse Rate 69 74 93 Pulse Rate [Left P ulse Oximeter] Respiratory Rate Blood Pressure 96/40 L Blood Pressure [Ri ght Upper Arm] Pulse Oximetry 98 98 99 Oxygen Delivery [facility] 11/29/22 05:31 11/29/22 05:40 11/29/22 06:00 Temperature Pulse Rate 89 98 99 Pulse Rate [Left P ulse Oximeter] Respiratory Rate Blood Pressure 120/52 L Blood Pressure [Ri ght Upper Arm] Pulse Oximetry 87 L 98 98 Oxygen Delivery [facility] 11/29/22 06:01 11/29/22 06:02 11/29/22 06:20 Temperature Pulse Rate 96 96 98 Pulse Rate [Left P ulse Oximeter] Respiratory Rate Blood Pressure 123/48 L Blood Pressure [Ri ght Upper Arm] Pulse Oximetry 99 98 98 Oxygen Delivery [facility] 11/29/22 06:31 11/29/22 06:40 11/29/22 07:00 Temperature Pulse Rate 99 95 94 Pulse Rate [Left P ulse Oximeter] Respiratory Rate Blood Pressure 122/53 L Blood Pressure [Ri ght Upper Arm] Pulse Oximetry 99 98 100 Oxygen Delivery [facility] 11/29/22 07:01 Temperature Pulse Rate 93 Pulse Rate [Left P ulse Oximeter] Respiratory Rate Blood Pressure 114/48 L Blood Pressure [Ri ght Upper Arm] Pulse Oximetry 100 Oxygen Delivery [facility] Hospitalist - H&P: Result Labs Labs: Short CBC 11/29/22 Range/Units 02:50 WBC 6.55 (4.50-11.00) K/uL Hgb 9.8 L (13.5-17.5) gm/dL Hct 31.9 L (37.0-53.0) % Plt Count 358 (140-440) K/uL BMP 11/29/22 11/29/22 11/29/22 02:50 05:00 06:05 Sodium 129 L 135 Potassium 5.5 H 4.2 Chloride 91 L 97 Carbon Dioxide 13 L 13 L BUN 33 H 33 H Creatinine 1.6 H 1.6 H Glucose 1008 H* 902 H* 815 H* Calcium 9.3 8.6 Liver Function 11/29/22 Range/Units 02:50 Total Bilirubin 0.6 (0.1-1.5) mg/dL AST 24 (12-35) U/L ALT 22 (4-50) U/L Alkaline Phosphatase 186 H (40-150) U/L Albumin 4.0 (3.3-5.0) g/dL Assessment and Plan Assessment and plan (1) Diabetic ketoacidosis: Problem comment: -initial bicarb 13, eventually pH noted to be 7.2. Insulin drip started in the ED. Running 10 units/hour. Appears euvolemic. No sign of infection. Likely due to insulin deficiency despite adherence to discharge full in plan. Q.1 hour glucose. Q 2 hour BMP, VBG, lactate. Fluids running at 200 mL an hour with normal saline and potassium. Will transition to D5 at blood sugar around 200. Will initiate subcu insulin 1-2 hours prior to turning off the drip. We will assess chronic insulin therapy doses over the next 24-48 hours. DKA diagnostic criteria: Serum glucose >250 mg/dL, arterial pH <7.3, serum bicarbonate <18 mEq/L, and at least moderate ketonuria or ketonemia. Normal laboratory values vary; check local lab normal ranges for all electrolytes. Status: Acute (2) Metabolic acidosis: Problem comment: Anion gap 25 on admission Status: Acute (3) Acute kidney injury: Problem comment: Secondary to dehydration from hyperglycemia. Managed in the context of DKA and critical illness Status: Resolved (4) Type 2 diabetes mellitus: Problem comment: Labile. Status: Chronic (5) Chronic kidney disease: Problem comment: Monitor and manage in the context of DKA and critical illness Status: Chronic (6) Mild cognitive impairment: Problem comment: Lifelong. Appropriate for long-term care facility. Status: Chronic (7) On home oxygen therapy: Problem comment: 2 L at baseline, history of COPD and AARON. Status: Chronic (8) Obstructive sleep apnea: Problem comment: has home CPAP Status: Chronic (9) Hypertension: Problem comment: Reassess blood pressure management once he is stabilized and electrolytes have normalized Status: Chronic (10) Severe chronic obstructive pulmonary disease: Problem comment: Monitor respiratory status closely with fluid resuscitation and COPD Status: Chronic
[2022-11-29 08:40] LABS: Blood Urea Nitrogen* 33 mg/dL (7-30); Calcium* 8.9 mg/dL (8.4-10.6); Carbon Dioxide* 17 mmol/L (20-32); Chloride* 100 mmol/L (96-114); Creatinine* 1.6 mg/dL (0.5-1.5); Estimated Glomerular Filt Rate 44 ml/min; Magnesium* 1.8 mg/dL (1.5-2.6); Potassium* 3.8 mmol/L (3.6-5.1); Sodium* 136 mmol/L (135-149)
[2022-11-29 08:42] LABS: Troponin I* 0.06 ng/mL (0.01-0.04)
[2022-11-29 08:43] LABS: Glucose* 644 mg/dL (60-115)
[2022-11-29] MEDS: PANTOPRAZOLE SODIUM 40 MG INJ IVP (09:25)
[2022-11-29] MEDS: 0.9 % SODIUM CH + KCL 20 mEq/L 1,000 ML 250 ML IV (09:25)
--- NOTE | 2022-11-29 10:09 | PC.SOCIAL ---
Met with pt's brother and sister (Jihan) in person and provided update. Informed pt's brother and sister that pt's code status was being updated to DNR/DNI per previous conversation. Pt's sister is glad and really wanted it changed. Informed that if they have questions they can ask medical staff in med/surg. Social work will follow up as necessary.
[2022-11-29 10:13] LABS: HCO3 VBG 22 mmol/L (21-28); Lactate* 2.7 mmol/L (0.5-1.9); PCO2 VBG 39 mmHG (40-50); PO2 VBG 46.3 mmHG (25-47); pH VBG 7.359 (7.32-7.43)
[2022-11-29 10:30] LABS: Chloride* 104 mmol/L (96-114); Potassium* 3.8 mmol/L (3.6-5.1); Sodium* 136 mmol/L (135-149)
[2022-11-29 10:33] LABS: Blood Urea Nitrogen* 33 mg/dL (7-30); Carbon Dioxide* 20 mmol/L (20-32); Creatinine* 1.4 mg/dL (0.5-1.5); Estimated Glomerular Filt Rate 51 ml/min
[2022-11-29 10:34] LABS: Calcium* 8.6 mg/dL (8.4-10.6)
[2022-11-29 10:41] LABS: Glucose* 486 mg/dL (60-115)
--- NOTE | 2022-11-29 11:12 | P.IMPN_ITS ---
Subjective Date Seen: 11/29/22 Interval history: With 0945 labs - gap is now closed. Anion gap is 12. Blood sugar still greater than 400. We will continue fluid normal saline with potassium at 250. an hour. When the sugar reaches 2-225 a start D5. I will go ahead and order subQ Levemir and decrease the insulin drip. Exam Const: Vital Signs, click to edit/add: Vital Signs - 24 hr 11/29/22 02:26 11/29/22 02:30 11/29/22 03:30 Temperature 97.1 F L Pulse Rate Pulse Rate [Left P ulse Oximeter] 67 50 L 52 L Respiratory Rate 16 16 16 Blood Pressure Blood Pressure [Ri ght Upper Arm] 133/67 84/49 L 86/39 L Pulse Oximetry 97 94 97 Oxygen Delivery Me thod Room Air Room Air Room Air 11/29/22 04:00 11/29/22 04:00 11/29/22 04:06 Temperature Pulse Rate 46 L Pulse Rate [Left P ulse Oximeter] 48 L 54 L Respiratory Rate 16 16 Blood Pressure Blood Pressure [Ri ght Upper Arm] 83/30 L 91/32 L Pulse Oximetry 96 96 96 Oxygen Delivery Me thod Room Air Room Air 11/29/22 04:20 11/29/22 04:31 11/29/22 04:40 Temperature Pulse Rate 50 L 59 L 58 L Pulse Rate [Left P ulse Oximeter] Respiratory Rate Blood Pressure 91/36 L Blood Pressure [Ri ght Upper Arm] Pulse Oximetry 92 94 98 Oxygen Delivery Me thod 11/29/22 05:00 11/29/22 05:01 11/29/22 05:20 Temperature Pulse Rate 69 74 93 Pulse Rate [Left P ulse Oximeter] Respiratory Rate Blood Pressure 96/40 L Blood Pressure [Ri ght Upper Arm] Pulse Oximetry 98 98 99 Oxygen Delivery Me thod 11/29/22 05:31 11/29/22 05:40 11/29/22 06:00 Temperature Pulse Rate 89 98 99 Pulse Rate [Left P ulse Oximeter] Respiratory Rate Blood Pressure 120/52 L Blood Pressure [Ri ght Upper Arm] Pulse Oximetry 87 L 98 98 Oxygen Delivery Me thod 11/29/22 06:01 11/29/22 06:02 11/29/22 06:20 Temperature Pulse Rate 96 96 98 Pulse Rate [Left P ulse Oximeter] Respiratory Rate Blood Pressure 123/48 L Blood Pressure [Ri ght Upper Arm] Pulse Oximetry 99 98 98 Oxygen Delivery Me thod 11/29/22 06:31 11/29/22 06:40 11/29/22 07:00 Temperature Pulse Rate 99 95 94 Pulse Rate [Left P ulse Oximeter] Respiratory Rate Blood Pressure 122/53 L Blood Pressure [Ri ght Upper Arm] Pulse Oximetry 99 98 100 Oxygen Delivery Me thod 11/29/22 07:01 Temperature Pulse Rate 93 Pulse Rate [Left P ulse Oximeter] Respiratory Rate Blood Pressure 114/48 L Blood Pressure [Ri ght Upper Arm] Pulse Oximetry 100 Oxygen Delivery Me thod Labs Labs: Laboratory Results - last 24 hr 11/29/22 11/29/22 11/29/22 02:28 02:50 05:00 WBC 6.55 RBC 2.77 L Hgb 9.8 L Hct 31.9 L MCV 115 H MCH 35 H MCHC 31 L RDW Coeff of Khushboo 13.1 Plt Count 358 Neut % (Auto) 71.8 Lymph % (Auto) 24.1 [place] % (Auto) 1.7 Eos % (Auto) 1.7 Baso % (Auto) 0.2 Neut # (Auto) 4.71 Lymph # (Auto) 1.58 [place] # (Auto) 0.10 Eos # (Auto) 0.11 Baso # (Auto) 0.01 Diff Slide Review Acceptable Review VBG pH VBG pCO2 VBG pO2 VBG HCO3 Sodium 129 L Potassium 5.5 H Chloride 91 L Carbon Dioxide 13 L BUN 33 H Creatinine 1.6 H Estimated GFR 44 Glucose 1008 H* 902 H* Lactate 2.8 H Calcium 9.3 Magnesium Total Bilirubin 0.6 AST 24 ALT 22 Alkaline Phosphatase 186 H Troponin I Total Protein 6.7 Albumin 4.0 POC Troponin I 0.01 11/29/22 11/29/22 11/29/22 06:05 07:44 10:09 WBC RBC Hgb Hct MCV MCH MCHC RDW Coeff of Khushboo Plt Count Neut % (Auto) Lymph % (Auto) [place] % (Auto) Eos % (Auto) Baso % (Auto) Neut # (Auto) Lymph # (Auto) [place] # (Auto) Eos # (Auto) Baso # (Auto) Diff Slide Review VBG pH 7.220 L* 7.359 VBG pCO2 44 39 L VBG pO2 39.1 46.3 VBG HCO3 18 L 22 Sodium 135 136 136 Potassium 4.2 3.8 3.8 Chloride 97 100 104 Carbon Dioxide 13 L 17 L 20 BUN 33 H 33 H 33 H Creatinine 1.6 H 1.6 H 1.4 Estimated GFR 44 44 51 Glucose 815 H* 644 H* 486 H* Lactate 2.8 H 2.7 H Calcium 8.6 8.9 8.6 Magnesium 1.8 Total Bilirubin AST ALT Alkaline Phosphatase Troponin I 0.06 H* Total Protein Albumin POC Troponin I
[2022-11-29] MEDS: INSULIN INF 100 UNIT/100 ML 100 UNIT/100 ML BAG 15 UNIT IVPB (12:46)
[2022-11-29] MEDS: 5 % DEXTROSE IN LAC RINGER'S 1,000 ML 150 ML IV (12:57)
--- NOTE | 2022-11-29 13:04 | PC.SOCIAL ---
Completed bed hold form with resident's sister, Joyce Villa, to hold resident's bed at [facility]. Placed bed hold form in resident's chart. Updated Maria Isabel Montague in billing that resident is on a bed hold. Social work will follow up as necessary.
[2022-11-29 14:09] LABS: HCO3 VBG 26 mmol/L (21-28); Lactate* 1.6 mmol/L (0.5-1.9); PCO2 VBG 42 mmHG (40-50); PO2 VBG 61.3 mmHG (25-47)
[2022-11-29 14:25] LABS: Chloride* 107 mmol/L (96-114); Potassium* 3.8 mmol/L (3.6-5.1); Sodium* 138 mmol/L (135-149)
[2022-11-29 14:28] LABS: Blood Urea Nitrogen* 33 mg/dL (7-30); Carbon Dioxide* 26 mmol/L (20-32); Creatinine* 1.3 mg/dL (0.5-1.5); Est. Creatinine Clearance* 53.57; Estimated Glomerular Filt Rate 56 ml/min
[2022-11-29 14:29] LABS: Calcium* 8.5 mg/dL (8.4-10.6); Glucose* 176 mg/dL (60-115)
[2022-11-29 14:39] LABS: Appearance Urine Clear (Clear); Bilirubin Urine 1+ (Negative); Color Urine Yellow (Yellow); Glucose Urine 2+ (Negative)
[2022-11-29 14:40] LABS: Blood Urine 2+ (Negative); Ketones Urine 3+ (Negative); Leukocyte Esterase Urine Negative (Negative); Nitrite Urine Negative (Negative); Protein Urine Trace (Negative); Squamous Epithelial Cell Urine Few (None-Few); Urobilinogen Urine 0.2 (0.2-1.0); WBC Urine 0-2 (0-5); pH Urine 5.5 (5.0-8.5)
[2022-11-29] MEDS: LACTATED RINGERS 500 ML 500 ML IV (16:51)
--- NOTE | 2022-11-29 16:55 | PC.NURSE ---
Dr. Garcia notified of pt's recent low BP 91/36. Orders to give LR 500cc bolus and Albumin IV. will continue to monitor pt
[2022-11-29] MEDS: ALBUMIN HUMAN 25% 25 GM/100 ML VIAL IVPB ×2 (17:53→21:24)
--- NOTE | 2022-11-29 18:48 | PC.NURSE ---
shift note: Dr. Murray updated via phone of pt BP. BP 85/40 HR=70 @ 1824; 94/40 hr=69 @1836; 82/55 hr=69. orders for stat hgb and lactate. order to bolus 500cc LR over 2hrs. will continue to monitor
[2022-11-29 19:05] LABS: Lactate* 1.6 mmol/L (0.5-1.9)
[2022-11-29 19:08] LABS: Hemoglobin* 9.4 gm/dL (13.5-17.5)
[2022-11-29] MEDS: LACTATED RINGERS 500 ML 500 ML 250 ML IV (19:24)
[2022-11-29 19:40] LABS: Procalcitonin* 1.18 ng/mL (<0.50)
--- NOTE | 2022-11-29 20:01 | PC.NURSE ---
pt to floor this a.m @ 0740 via cart. pt sleepy throughout the day but aroused to name. Pt oriented x3. Blood sugars q 1hr per insulin gtt protocol throughout the day. Insulin gtt dc'd this afternoon per Dr. Oreilly. jamaal inserted this a.m @ 0811. [facility] nurse Klaudia came to floor and dc'd Freestyle sensor from rt upper arm. then Placed a new sensor to Lt upper arm. Pt sacrum/coccyx area has small white nonblanchable area. Sacral mepilex applied to site. bilat heels with large intact blood filled blisters. bilat heels placed in blue heel protectors and elevated off bed. PP+ bilat feet. Pt denies pain. LS clr. Pt using 1L pnc O2 with sleep due to sats >88%. vss performed q2hrs. Dr. Roque and Dr. Lopez updated throughout the day. pt denies nausea. pt tolerating regular diet.
[2022-11-29] MEDS: ENOXAPARIN 40 MG/0.4 ML INJ SUBCUT (20:38)
--- NOTE | 2022-11-29 22:23 | W.PM.CROSSCO ---
Subjective Subjective Interval history: patient with low grade temp, and hypotension; given several boluses and albumin infusion; will obtain blood cx, UA, start empiric zosyn for tonight. If develops fever will need to have cxr
[2022-11-29 23:19] LABS: Appearance Urine Clear (Clear); Bilirubin Urine 1+ (Negative); Blood Urine 3+ (Negative); Color Urine Yellow (Yellow); Glucose Urine Negative (Negative); Ketones Urine Trace (Negative); Leukocyte Esterase Urine Negative (Negative); Nitrite Urine Negative (Negative); Protein Urine 2+ (Negative); Specific Gravity Urine >= 1.030 (1.000-1.030); Urobilinogen Urine 0.2 (0.2-1.0); pH Urine 5.5 (5.0-8.5)
[2022-11-29 23:28] LABS: WBC Urine 0-2 (0-5)
[2022-11-29 23:29] LABS: Bacteria Urine Few; Squamous Epithelial Cell Urine Moderate (None-Few)
[2022-11-29] MEDS: PIPERACILLIN/TAZOBACTAM 3.375 GM in 0.9 % SODIUM CHLORIDE Mini-bag 100 ML IVPB (23:53)
[2022-11-29] MEDS: 5 % DEXTROSE IN LAC RINGER'S 1,000 ML 75 ML IV (23:53)
[2022-11-30] VITALS (16 sets, daily range): BP systolic 96–153; BP diastolic 41–78; PULSE 58–66; RESP 16–18; TEMP 36.4–37.1; O2SAT 93–98
--- NOTE | 2022-11-30 04:06 | PC.NURSE ---
PATIENT PLEASANT AND COOPERATIVE, ALERT AND ORIENTED, BEDREST AT THIS TIME WITH TURN AND REPO Q2H, BG CHECKED AT LEAST Q2H THROUGHOUT SHIFT, SNACKS GIVEN THROUGHOUT NIGHT FOR LOW BLOOD SUGARS, SILVA PATIENT AND DRAINING, PATIENT DECLINING PAIN, SLIGHT TEMP 99.3 UPDATED AND JEANNA INITIATED AND PATIENT AFEBRILE SINCE, TELE SHOWING NSR.
[2022-11-30] MEDS: PIPERACILLIN/TAZOBACTAM 3.375 GM in 0.9 % SODIUM CHLORIDE Mini-bag 100 ML IVPB ×3 (04:34→19:43)
[2022-11-30 06:21] LABS: HCO3 VBG 27 mmol/L (21-28); Ionized Calcium* 1.23 mmol/L (1.11-1.30); PCO2 VBG 51 mmHG (40-50); PO2 VBG 43.7 mmHG (25-47); pH VBG 7.323 (7.32-7.43)
[2022-11-30 06:27] LABS: Hematocrit 27.5 % (37.0-53.0); Mean Corpuscular HGB Conc 33 gm/dL (32-36); Mean Corpuscular Hemoglobin 35 pg (26-34); Mean Corpuscular Volume 108 fL (80-100); Platelet Count* 284 K/uL (140-440); Red Blood Count 2.55 m/uL (4.30-5.90); White Blood Count* 5.67 K/uL (4.50-11.00)
[2022-11-30 06:39] LABS: Slide Review Reflex No
[2022-11-30 06:46] LABS: Chloride* 108 mmol/L (96-114); Potassium* 3.8 mmol/L (3.6-5.1); Sodium* 141 mmol/L (135-149)
[2022-11-30 06:49] LABS: Blood Urea Nitrogen* 25 mg/dL (7-30); Carbon Dioxide* 28 mmol/L (20-32); Creatinine* 1.3 mg/dL (0.5-1.5); Est. Creatinine Clearance* 53.57; Estimated Glomerular Filt Rate 56 ml/min
[2022-11-30 06:50] LABS: Calcium* 8.6 mg/dL (8.4-10.6); Glucose* 102 mg/dL (60-115); Magnesium* 1.6 mg/dL (1.5-2.6)
[2022-11-30 07:01] LABS: Hemoglobin A1C* 9.04 % (0-5.6)
[2022-11-30 07:03] LABS: NT Pro B Type NatriureticPept* 2100 pg/mL
--- NOTE | 2022-11-30 07:35 | CRLHL7_ITS ---
For Patients: As a result of the Cures Act, medical imaging exams and procedure reports are released immediately into your electronic medical record. You may view this report before your referring provider. If you have questions, please contact your health care provider. INDICATION: fever, DKA TECHNIQUE: Chest 2 views COMPARISON: 11/29/2022 FINDINGS: A small right pleural effusion is present with fluid tracking into the fissure. Lungs are hyperexpanded consistent with underlying COPD/emphysema. Cardiomegaly. No pneumothorax. Increased thoracic kyphosis with degenerative disc disease in the mid thoracic spine. Mild increased densities within the right lung base. IMPRESSION: Small right pleural effusion and adjacent right basilar density, atelectasis versus infiltrate. Dictated by Jordan De Jesus MD @ 11/30/2022 10:54:33 AM (Electronically Signed)
--- NOTE | 2022-11-30 07:39 | PM.IMHP1 ---
Hospitalist- H&P: HPI History of Present Illness Date Seen: 11/30/22 Chief complaint: Hyperglycemia Narrative: Daily Progress Note - Hospital Medicine Day #: 2 CC:DKA, Demand ischemia, DM2 poorly controlled OVERNIGHT UPDATES FROM STAFF & MED, LAB, IMAGING UPDATES -trop bumped .06 to .6. no concerns on tele, no chest pain. vitally stable. -bs 10-256-23-106-91-115, decreasing LA insulin to 15 BID. still on D5. Gap closed. normal potassium. Objective: Vitals: see above Lungs: Clear. Cardiac: S1S2. Disposition/Potential discharge - Likely to return to previous living situation. Total time is 35 minutes with greater than 50% spent in counseling and coordination of care. [facility] Medical History (Updated 11/30/22 @ 07:45 by Miriam Oreilly MD) Health care directive on file ?Z78.9 - Other specified health status (ICD-10) Severe chronic obstructive pulmonary disease ?J44.9 - Chronic obstructive pulmonary disease, unspecified (ICD-10) Mild cognitive impairment ?G31.84 - Mild cognitive impairment of uncertain or unknown etiology (ICD-10) History of poliomyelitis ?Z86.12 - Personal history of poliomyelitis (ICD-10) On home oxygen therapy ?Z99.81 - Dependence on supplemental oxygen (ICD-10) Thrombocythemia ?D75.839 - Thrombocytosis, unspecified (ICD-10) Chronic kidney disease ?N18.9 - Chronic kidney disease, unspecified (ICD-10) Obstructive sleep apnea ?G47.33 - Obstructive sleep apnea (adult) (pediatric) (ICD-10) Type 2 diabetes mellitus ?E11.9 - Type 2 diabetes mellitus without complications (ICD-10) Hypertension ?I10 - Essential (primary) hypertension (ICD-10) Surgical History History of open reduction and internal fixation (ORIF) procedure ?Z98.890 - Other specified postprocedural states (ICD-10) History of cataract surgery ?Z98.49 - Cataract extraction status, unspecified eye (ICD-10) H/O foot surgery ?Z98.890 - Other specified postprocedural states (ICD-10) Family History Father Diabetes Mother Breast cancer Social History (Updated 11/29/22 @ 09:20 by Miriam Oreilly MD) Narrative: Resident of our [facility].. Former smoker. Does not drink alcohol. DNR DNI. Indicates that his brother Boo and sister Joyce should be making healthcare decisions. What is your current living situation: I presently have a place to live Problems where you live: no known problems Problems where you live details: none In the past 12 months, utilities in danger of being shut off: no In the past 12 mos, have been you worried that your food would run out before you had money to buy more?: never true In the past 12 mos, the food you bought just didn't last and you didn't have money to buy more?: never true Highest level of school completed/degree received: high school graduate Smoking Status: Former smoker What tobacco products do you use: cigars and pipe Do you use any of these nicotine containing products: None Second hand tobacco smoke exposure: No How often do you have a drink containing alcohol: never How often do you have six or more drinks on one occasion: Never AUDIT-C Alcohol total score: 0 Non-prescribed substance use: denies use Caffeine: Yes How often does anyone, including family, friends and others, physically hurt you: How often does anyone, including family, friends and others, insult or talk down to you: How often does anyone, including family, friends and others, threaten you with harm: How often does anyone, including family, friends and others, scream or curse at you: service: No Meds Home Medications and Allergies Home Medications Medication Instructions Recorded Confirmed Type aspirin 81 mg tablet,delayed 81 mg PO DAILY 08/10/22 11/29/22 History release cetirizine 10 mg tablet 10 mg PO DAILY 08/10/22 11/29/22 History hydroxyurea 500 mg capsule 500 mg PO DAILY 08/10/22 11/29/22 History montelukast 10 mg tablet 10 mg PO HS 08/10/22 11/29/22 History pravastatin 80 mg tablet 80 mg PO HS 08/10/22 11/29/22 History acetaminophen 500 mg tablet 1,000 mg PO TID 08/18/22 11/29/22 History fluticasone 500 mcg-salmeterol 50 1 inh inhalation BID 08/18/22 11/20/22 History mcg/dose blistr powdr for inhalation (Advair Diskus) insulin detemir U-100 100 unit/mL 26 unit subcut DAILY 11/14/22 11/29/22 History (3 mL) subcutaneous pen insulin aspart U-100 100 unit/mL 10 unit subcut TIDWMEAL 11/29/22 11/29/22 History (3 mL) subcutaneous pen insulin aspart U-100 100 unit/mL 1 sliding scale dose subcut TIDWM 11/29/22 11/29/22 History (3 mL) subcutaneous pen (Novolog diabetes FlexPen U-100 Insulin aspart) Allergies Allergy/AdvReac Type Severity Reaction Status Date / Time No Known Drug Allergies Allergy Verified 08/10/22 15:25 Exam Const: Vital Signs, click to edit/add: Vital Signs - 24 hr 11/29/22 07:44 11/29/22 07:52 11/29/22 08:11 Temperature 98.8 F Pulse Rate 89 Pulse Rate [Left B rachial] 92 Respiratory Rate 16 Blood Pressure [Le ft Arm] 112/47 L Pulse Oximetry 96 95 Oxygen Delivery Me thod Room Air Oxygen Flow Rate 11/29/22 08:11 11/29/22 08:11 11/29/22 14:00 Temperature 98.8 F 98.5 F Pulse Rate Pulse Rate [Left B rachial] 92 68 Respiratory Rate 16 16 16 Blood Pressure [Le ft Arm] 112/47 L 103/47 L Pulse Oximetry 96 96 97 Oxygen Delivery Me thod Room Air Room Air Room Air Oxygen Flow Rate 11/29/22 15:00 11/29/22 16:00 11/29/22 18:00 Temperature 99.4 F 98.7 F Pulse Rate 76 Pulse Rate [Left B rachial] 68 70 Respiratory Rate 16 16 Blood Pressure [Le ft Arm] 91/36 L 85/40 L Pulse Oximetry 97 93 Oxygen Delivery Me thod Nasal Cannula Room Air Oxygen Flow Rate 1 11/29/22 19:00 11/29/22 20:00 11/29/22 21:00 Temperature 99.3 F 98.3 F Pulse Rate 67 Pulse Rate [Left B rachial] 66 67 Respiratory Rate 16 16 Blood Pressure [Le ft Arm] 97/49 L 100/60 Pulse Oximetry 96 96 Oxygen Delivery Me thod Nasal Cannula Nasal Cannula Oxygen Flow Rate 1 1 11/29/22 22:00 11/29/22 23:00 11/30/22 00:00 Temperature 98.7 F 98.8 F Pulse Rate 63 Pulse Rate [Left B rachial] 66 66 Respiratory Rate 16 16 Blood Pressure [Le ft Arm] 112/48 L 102/65 Pulse Oximetry 97 94 Oxygen Delivery Me thod Nasal Cannula Nasal Cannula Oxygen Flow Rate 1 1.0 11/30/22 01:51 11/30/22 02:50 11/30/22 03:54 Temperature 98.6 F 98.0 F Pulse Rate 62 Pulse Rate [Left B rachial] 66 66 Respiratory Rate 16 16 Blood Pressure [Le ft Arm] 96/41 L 103/45 L Pulse Oximetry 94 97 Oxygen Delivery Me thod Nasal Cannula Nasal Cannula Oxygen Flow Rate 1.0 1.0 11/30/22 05:49 Temperature 98.0 F Pulse Rate Pulse Rate [Left B rachial] 61 Respiratory Rate 16 Blood Pressure [Le ft Arm] 105/43 L Pulse Oximetry 97 Oxygen Delivery Me thod Nasal Cannula Oxygen Flow Rate 1.0 Hospitalist - H&P: Result Labs Labs: Short CBC 11/29/22 11/30/22 Range/Units 19:00 05:56 WBC 5.67 (4.50-11.00) K/uL Hgb 9.4 L 9.0 L (13.5-17.5) gm/dL Hct 27.5 L (37.0-53.0) % Plt Count 284 (140-440) K/uL [facility] 11/29/22 11/29/22 11/29/22 07:44 10:09 14:03 Sodium 136 136 138 Potassium 3.8 3.8 3.8 Chloride 100 104 107 Carbon Dioxide 17 L 20 26 BUN 33 H 33 H 33 H Creatinine 1.6 H 1.4 1.3 Glucose 644 H* 486 H* 176 H Calcium 8.9 8.6 8.5 11/30/22 05:56 Sodium 141 Potassium 3.8 Chloride 108 Carbon Dioxide 28 BUN 25 Creatinine 1.3 Glucose 102 Calcium 8.6 Cardiac Enzymes 11/29/22 11/30/22 Range/Units 07:44 05:56 Troponin I 0.06 H* 0.60 H* (0.01-0.04) ng/mL Urine 11/29/22 11/29/22 Range/Units 14:05 23:10 Urine Color Yellow Yellow (Yellow) Urine Appearance Clear Clear (Clear) Urine pH 5.5 5.5 (5.0-8.5) Ur Specific [place] 1.010 >= 1.030 (1.000-1.030) Urine Protein Trace A 2+ A (Negative) Urine Glucose (UA) 2+ A Negative (Negative) Assessment and Plan Assessment and plan (1) Diabetic ketoacidosis: Problem comment: -resolved. off insulin drip. on D5. gap closed. on SQ insulin. sugars a bit low overnight. no D50 needed. did well with snacks. DKA diagnostic criteria: Serum glucose >250 mg/dL, arterial pH <7.3, serum bicarbonate <18 mEq/L, and at least moderate ketonuria or ketonemia. Normal laboratory values vary; check local lab normal ranges for all electrolytes. Status: Acute (2) Metabolic acidosis: Problem comment: -resolved Status: Acute (3) Fever: Problem comment: 99.1. no symptoms. Urine and blood cultures neg. CXR ordered this am. high suspicion needed as cause of DKA is not clearly infectious or nonadherence to insulin regimen. -zosyn started last night. Status: Acute (4) Demand ischemia: Problem comment: -no chest pain. monitor. likely from acute illness. Status: Acute (5) Type 2 diabetes mellitus: Problem comment: A1C 9.0. adjust insulin regimen. Status: Chronic (6) Severe chronic obstructive pulmonary disease: Problem comment: Monitor respiratory status closely with fluid resuscitation and COPD Status: Chronic (7) Hypertension: Problem comment: Reassess blood pressure management once he is stabilized and electrolytes have normalized Status: Chronic (8) Chronic kidney disease: Problem comment: Monitor and manage in the context of DKA and critical illness Status: Chronic (9) Mild cognitive impairment: Problem comment: Lifelong. Appropriate for long-term care facility. Status: Chronic
[2022-11-30 07:59] LABS: Lactate* 1.4 mmol/L (0.5-1.9)
[2022-11-30 08:23] LABS: Procalcitonin* 1.16 ng/mL (<0.50)
[2022-11-30] MEDS: CETIRIZINE HCL 10 MG TABLET PO (09:48)
[2022-11-30] MEDS: SENNOSIDES 1 TAB TABLET 2 TAB PO ×2 (09:48→20:35)
[2022-11-30] MEDS: ASPIRIN 81 MG TABLET EC PO (09:48)
[2022-11-30] MEDS: FLUTICASONE PROPIONATE NASAL 1 SPRAY NOSTRIL-B ×2 (09:48→20:33)
[2022-11-30] MEDS: HYDROXYUREA 500 MG CAPSULE PO (09:50)
[2022-11-30] MEDS: SODIUM CHLORIDE 0.9 % (FLUSH) 10 ML SYRINGE 5 ML IVF ×2 (09:51→20:47)
[2022-11-30] MEDS: ACETAMINOPHEN 500 MG TABLET 1000 MG PO ×3 (09:54→20:34)
--- NOTE | 2022-11-30 10:53 | P.IMPN_ITS ---
Progress Note: A&P Assessment and plan (1) Diabetic ketoacidosis: Problem details: -resolved. off insulin drip. on D5. gap closed. on SQ insulin. sugars a bit low overnight. no D50 needed. did well with snacks. -I suspect cause is likely related to pneumonia, RLL, now identified. DKA diagnostic criteria: Serum glucose >250 mg/dL, arterial pH <7.3, serum bicarbonate <18 mEq/L, and at least moderate ketonuria or ketonemia. Normal laboratory values vary; check local lab normal ranges for all electrolytes. Status: Acute (2) RLL pneumonia: Problem details: -newly found last night with fever to 99, no other symptoms. CXR shows right pleural effusion and infilitrate. CRP and procalcitonin are elevated. WBC is not. Zosyn started last night; will continue x 24 hours and then switch to oral. Status: Acute (3) Demand ischemia: Problem details: -no chest pain. monitor. likely from acute illness. Status: Acute (4) Metabolic acidosis: Problem details: -resolved Status: Acute (5) On home oxygen therapy: Problem details: 2 L at baseline, history of COPD and AARON. Status: Chronic (6) Chronic kidney disease: Problem details: Monitor and manage in the context of DKA and critical illness Status: Chronic (7) Hypertension: Problem details: Reassess blood pressure management once he is stabilized and electrolytes have normalized Status: Chronic (8) Type 2 diabetes mellitus: Problem details: A1C 9.0. adjust insulin regimen. Status: Chronic (9) Severe chronic obstructive pulmonary disease: Problem details: Monitor respiratory status closely with fluid resuscitation and COPD Status: Chronic (10) Obstructive sleep apnea: Problem details: has home CPAP Status: Chronic (11) Mild cognitive impairment: Problem details: Lifelong. Appropriate for long-term care facility. Status: Chronic Subjective Date Seen: 11/30/22 Interval history: Daily Progress Note - Hospital Medicine Day #: 2 CC:DKA, Demand ischemia, DM2 poorly controlled, RLL pneumonia OVERNIGHT UPDATES FROM STAFF & MED, LAB, IMAGING UPDATES -trop bumped .06 to .6. no concerns on tele, no chest pain. vitally stable. -bs 36-754-16-106-91-115, decreasing LA insulin to 15 BID. still on D5. Gap closed. normal potassium. -zosyn started overnight - 99.9 fever. BC ordered x 2. CRP and Procalcitonin elevated. CXR this am: CXR Small right pleural effusion and adjacent right basilar density, atelectasis versus infiltrate. -will stop D5 -finding right insulin doses difficult. -q2h after 15 units of LA insulin this am Objective: LOOKS SO MUCH BETTER - glasses on, eating an entire breakfast tray. Vitals: see above Lungs: Clear. Cardiac: S1S2. Disposition/Potential discharge - Likely to return to previous living situation. Total time is 35 minutes with greater than 50% spent in counseling and market research coordinator rdination of care. Exam Const: Vital Signs, click to edit/add: Vital Signs - 24 hr 11/29/22 14:00 11/29/22 15:00 11/29/22 16:00 Temperature 98.5 F 99.4 F Pulse Rate 76 Pulse Rate [Left B rachial] 68 68 Respiratory Rate 16 16 Blood Pressure [Le ft Arm] 103/47 L 91/36 L Pulse Oximetry 97 97 Oxygen Delivery Me thod Room Air Nasal Cannula Oxygen Flow Rate 1 11/29/22 18:00 11/29/22 19:00 11/29/22 20:00 Temperature 98.7 F 99.3 F Pulse Rate 67 Pulse Rate [Left B rachial] 70 66 Respiratory Rate 16 16 Blood Pressure [Le ft Arm] 85/40 L 97/49 L Pulse Oximetry 93 96 Oxygen Delivery Me thod Room Air Nasal Cannula Oxygen Flow Rate 1 11/29/22 21:00 11/29/22 22:00 11/29/22 23:00 Temperature 98.3 F 98.7 F Pulse Rate 63 Pulse Rate [Left B rachial] 67 66 Respiratory Rate 16 16 Blood Pressure [Le ft Arm] 100/60 112/48 L Pulse Oximetry 96 97 Oxygen Delivery Me thod Nasal Cannula Nasal Cannula Oxygen Flow Rate 1 1 11/30/22 00:00 11/30/22 01:51 11/30/22 02:50 Temperature 98.8 F 98.6 F Pulse Rate 62 Pulse Rate [Left B rachial] 66 66 Respiratory Rate 16 16 Blood Pressure [Le ft Arm] 102/65 96/41 L Pulse Oximetry 94 94 Oxygen Delivery Me thod Nasal Cannula Nasal Cannula Oxygen Flow Rate 1.0 1.0 11/30/22 03:54 11/30/22 05:49 11/30/22 07:00 Temperature 98.0 F 98.0 F Pulse Rate 61 Pulse Rate [Left B rachial] 66 61 Respiratory Rate 16 16 Blood Pressure [Le ft Arm] 103/45 L 105/43 L Pulse Oximetry 97 97 Oxygen Delivery Me thod Nasal Cannula Nasal Cannula Oxygen Flow Rate 1.0 1.0 11/30/22 07:00 11/30/22 08:00 11/30/22 09:54 Temperature 97.9 F 97.9 F Pulse Rate Pulse Rate [Left B rachial] 60 60 Respiratory Rate 16 16 Blood Pressure [Le ft Arm] 105/53 L Pulse Oximetry 94 Oxygen Delivery Me thod Room Air Oxygen Flow Rate Labs Labs: Laboratory Results - last 24 hr 11/29/22 11/29/22 11/29/22 14:03 14:05 18:45 WBC RBC Hgb Hct MCV MCH MCHC Plt Count VBG pH 7.400 VBG pCO2 42 VBG pO2 61.3 H VBG HCO3 26 Sodium 138 Potassium 3.8 Chloride 107 Carbon Dioxide 26 BUN 33 H Creatinine 1.3 Estimated Creat Clear 53.57 Estimated GFR 56 Glucose 176 H Hemoglobin A1c Lactate 1.6 Calcium 8.5 Ionized Calcium Joshua Magnesium Troponin I C-Reactive Protein NT-Pro-B Natriuret Pep Procalcitonin 1.18 H Urine Color Yellow Urine Appearance Clear Urine pH 5.5 Ur Specific [place] 1.010 Urine Protein Trace A Urine Glucose (UA) 2+ A Urine Ketones 3+ A Urine Blood 2+ A Urine Nitrite Negative Urine Bilirubin 1+ A Urine Urobilinogen 0.2 Ur Leukocyte Esterase Negative Urine RBC 5-10 A Urine WBC 0-2 Ur Squamous Epith Cells Few Urine Bacteria None Lab Acknowledgement 11/29/22 11/29/22 11/30/22 19:00 23:10 05:56 WBC 5.67 RBC 2.55 L Hgb 9.4 L 9.0 L Hct 27.5 L MCV 108 H MCH 35 H MCHC 33 Plt Count 284 VBG pH 7.323 VBG pCO2 51 H VBG pO2 43.7 VBG HCO3 27 Sodium 141 Potassium 3.8 Chloride 108 Carbon Dioxide 28 BUN 25 Creatinine 1.3 Estimated Creat Clear 53.57 Estimated GFR 56 Glucose 102 Hemoglobin A1c 9.04 H Lactate 1.6 1.4 Calcium 8.6 Ionized Calcium Joshua 1.23 Magnesium 1.6 Troponin I 0.60 H* C-Reactive Protein 3.0 H NT-Pro-B Natriuret Pep 2100 Procalcitonin 1.16 H Urine Color Yellow Urine Appearance Clear Urine pH 5.5 Ur Specific [place] >= 1.030 Urine Protein 2+ A Urine Glucose (UA) Negative Urine Ketones Trace A Urine Blood 3+ A Urine Nitrite Negative Urine Bilirubin 1+ A Urine Urobilinogen 0.2 Ur Leukocyte Esterase Negative Urine RBC 2-5 A Urine WBC 0-2 Ur Squamous Epith Cells Moderate A Urine Bacteria Few A Lab Acknowledgement Test Added
[2022-11-30 13:43] LABS: Troponin I* 0.34 ng/mL (0.01-0.04)
--- NOTE | 2022-11-30 15:41 | PC.SOCIAL ---
Followed up with Chantal Cedeño from [facility] regarding pt returning over the weekend. Chantal informs that pt can return anytime over the weekend if he is ready for discharge from the hospital. Discussed with to ensure that pt's POLST is completed while inpatient in the hospital. Social work will follow up as necessary.
[2022-11-30] MEDS: 0.9 % SODIUM CHLORIDE 250 ml IV (19:46)
[2022-11-30] MEDS: MONTELUKAST 10 MG TABLET PO (20:34)
[2022-11-30] MEDS: ENOXAPARIN 40 MG/0.4 ML INJ SUBCUT (20:34)
[2022-11-30] MEDS: PRAVASTATIN SODIUM 20 MG TABLET 80 MG PO (20:35)
[2022-12-01] MEDS: PIPERACILLIN/TAZOBACTAM 3.375 GM in 0.9 % SODIUM CHLORIDE Mini-bag 100 ML IVPB ×2 (02:08→08:59)
[2022-12-01 03:54] VITALS: BP 130/69; PULSE 67; RESP 16; TEMP 36.9; O2SAT 95
--- NOTE | 2022-12-01 06:02 | PC.NURSE ---
End of shift note from [id number]. Pt A&O. Denies pain, n/v, and dizziness. VSS on RA w/ sats >90%.?Turn and repo q2h with heels lifted off bed. Blood glucose checks q2h. Snacks given for low blood sugars. Pt using urinal and voiding an adequate amount.
[2022-12-01 06:48] LABS: HCO3 VBG 29 mmol/L (21-28); PCO2 VBG 48 mmHG (40-50); PO2 VBG 59.9 mmHG (25-47); pH VBG 7.396 (7.32-7.43)
[2022-12-01 06:59] LABS: Hematocrit 28.4 % (37.0-53.0); Hemoglobin* 9.3 gm/dL (13.5-17.5); Mean Corpuscular HGB Conc 33 gm/dL (32-36); Mean Corpuscular Hemoglobin 35 pg (26-34); Mean Corpuscular Volume 108 fL (80-100); Platelet Count* 262 K/uL (140-440); Red Blood Count 2.64 m/uL (4.30-5.90)
[2022-12-01 07:00] VITALS: BP 171/72; PULSE 59; PULSE 60; RESP 16; TEMP 36.6; O2SAT 95; O2SAT 96
[2022-12-01 07:00] LABS: Slide Review Reflex No
[2022-12-01 07:17] LABS: Chloride* 105 mmol/L (96-114); Sodium* 135 mmol/L (135-149)
[2022-12-01 07:20] LABS: Blood Urea Nitrogen* 17 mg/dL (7-30); Carbon Dioxide* 29 mmol/L (20-32); Creatinine* 0.9 mg/dL (0.5-1.5); Est. Creatinine Clearance* 69.64; Estimated Glomerular Filt Rate 87 ml/min; Glucose* 129 mg/dL (60-115)
[2022-12-01 07:21] LABS: Calcium* 8.8 mg/dL (8.4-10.6)
--- NOTE | 2022-12-01 07:22 | P.IMPN_ITS ---
Progress Note: A&P Assessment and plan (1) Diabetic ketoacidosis: Problem details: -resolved. off insulin drip. Off D5. Gap closed. Just inguinal in dosing -I suspect cause is likely related to pneumonia, RLL, now identified. Status: Acute (2) RLL pneumonia: Problem details: -newly found 2 days ago fever to 99, no other symptoms. CXR shows right pleural effusion and infilitrate. CRP and procalcitonin are elevated, now trending downward. WBC is not. Zosyn started 11/29; will continue x 24 hours and then switch to oral. Status: Acute (3) Demand ischemia: Problem details: -no chest pain. monitor. likely from acute illness. Status: Acute (4) Metabolic acidosis: Problem details: -resolved Status: Acute (5) On home oxygen therapy: Problem details: 2 L at baseline, history of COPD and AARON. Status: Chronic (6) Chronic kidney disease: Problem details: Monitor and manage in the context of DKA and critical illness Status: Chronic (7) Hypertension: Problem details: Reassess blood pressure management once he is stabilized and electrolytes have normalized Status: Chronic (8) Type 2 diabetes mellitus: Problem details: A1C 9.0. adjust insulin regimen. Status: Chronic (9) Severe chronic obstructive pulmonary disease: Problem details: Monitor respiratory status closely with fluid resuscitation and COPD Status: Chronic (10) Obstructive sleep apnea: Problem details: has home CPAP Status: Chronic (11) Mild cognitive impairment: Problem details: Lifelong. Appropriate for long-term care facility. Status: Chronic Subjective Date Seen: 12/01/22 Interval history: Daily Progress Note - Hospital Medicine Day #: 3 CC:DKA, Demand ischemia, DM2 poorly controlled, RLL pneumonia OVERNIGHT UPDATES FROM STAFF & MED, LAB, IMAGING UPDATES -patient was looking out the window from his chair. He was able to identify people he knew from long-term care there were out in the [facility]. He seems back to baseline. [place] pulled yesterday. Blood sugars much more manageable. Afebrile all night Blood pressure 130/69, 153/68 Pulse 60s to 70s Respiratory rate 16 Pulse ox 97-95%, room air 87 kilos Nurse note: End of shift note from [id number]. Pt A&O. Denies pain, n/v, and dizziness. VSS on RA w/ sats >90%. Turn and repo q2h with heels lifted off bed. Blood glucose checks q2h. Snacks given for low blood sugars. Pt using urinal and voiding an adequate amount. From noon yesterday blood glucose: 204, 152, 178, 182, 226, 273, 198, 115, 98, 114 Chest x-ray 11/30 Small right pleural effusion and adjacent right basilar density, atelectasis versus infiltrate. CBC reflects a drop in his overall white blood cell count. 3.10 this morning. Hemoglobin is stable Platelets are stable PH stable with no CO2 retention. No MRSA Blood cultures, negative today Urine culture negative today Objective: Looks great. Back to baseline. Carry on a conversation. Vitals: see above Lungs: Clear. Cardiac: S1S2. Disposition/Potential discharge - Likely to return to previous living situation. Total time is 35 minutes with greater than 50% spent in counseling and coordination of care. Exam Const: Vital Signs, click to edit/add: Vital Signs - 24 hr 11/30/22 07:52 11/30/22 08:00 11/30/22 08:00 Temperature 97.9 F Pulse Rate 61 Pulse Rate [Left B rachial] 60 Pulse Rate [Pulse Oximeter] Respiratory Rate 16 Blood Pressure [Le ft Arm] 105/53 L Pulse Oximetry 96 94 Oxygen Delivery Me thod Room Air Oxygen Flow Rate 11/30/22 09:54 11/30/22 10:00 11/30/22 11:00 Temperature 97.9 F 97.9 F Pulse Rate 61 Pulse Rate [Left B rachial] 60 Pulse Rate [Pulse Oximeter] Respiratory Rate 16 Blood Pressure [Le ft Arm] 105/53 L Pulse Oximetry 94 [facility] Flow Rate 1.0 11/30/22 12:00 11/30/22 15:00 11/30/22 15:00 Temperature 97.9 F Pulse Rate 61 Pulse Rate [Left B rachial] 58 L 61 Pulse Rate [Pulse Oximeter] Respiratory Rate 16 16 Blood Pressure [Le ft Arm] 127/73 Pulse Oximetry 94 [facility] Flow Rate 11/30/22 15:00 11/30/22 15:00 11/30/22 19:00 Temperature 98.1 F 97.6 F Pulse Rate Pulse Rate [Left B rachial] 61 60 Pulse Rate [Pulse Oximeter] Respiratory Rate 16 16 18 Blood Pressure [Le ft Arm] 148/78 H 128/55 L Pulse Oximetry 96 98 98 Oxygen Delivery Me thod Room Air Room Air Room Air Oxygen Flow Rate 11/30/22 19:57 11/30/22 23:00 11/30/22 23:00 Temperature 98.2 F Pulse Rate 60 Pulse Rate [Left B rachial] Pulse Rate [Pulse Oximeter] 60 Respiratory Rate 18 16 Blood Pressure [Le ft Arm] 153/68 H Pulse Oximetry 96 97 Oxygen Delivery Al thod Room Air Room Air Oxygen Flow Rate 12/01/22 03:54 Temperature 98.4 F Pulse Rate Pulse Rate [Left B rachial] Pulse Rate [Pulse Oximeter] 67 Respiratory Rate 16 Blood Pressure [Le ft Arm] 130/69 Pulse Oximetry 95 Oxygen Delivery Al thod Room Air Oxygen Flow Rate Labs Labs: Laboratory Results - last 24 hr 11/30/22 11/30/22 12/01/22 05:56 12:58 06:10 WBC 3.10 L RBC 2.64 L Hgb 9.3 L Hct 28.4 L MCV 108 H MCH 35 H MCHC 33 Plt Count 262 VBG pH 7.396 VBG pCO2 48 VBG pO2 59.9 H VBG HCO3 29 H Lactate 1.4 Troponin I 0.34 H* Procalcitonin 1.16 H Lab Acknowledgement Test Added
[2022-12-01 07:23] LABS: C Reactive Protein* 2.4 mg/dL (0.5-1.0)
[2022-12-01 07:36] LABS: NT Pro B Type NatriureticPept* 2240 pg/mL; Troponin I* 0.24 ng/mL (0.01-0.04)
[2022-12-01 07:37] LABS: Procalcitonin* 0.73 ng/mL (<0.50)
[2022-12-01] MEDS: SENNOSIDES 1 TAB TABLET 2 TAB PO ×2 (08:58→20:57)
[2022-12-01] MEDS: ASPIRIN 81 MG TABLET EC PO (08:58)
[2022-12-01] MEDS: CETIRIZINE HCL 10 MG TABLET PO (08:58)
[2022-12-01] MEDS: HYDROXYUREA 500 MG CAPSULE PO (08:58)
[2022-12-01] MEDS: ACETAMINOPHEN 500 MG TABLET 1000 MG PO ×3 (08:58→20:59)
[2022-12-01] MEDS: FLUTICASONE PROPIONATE NASAL 1 SPRAY NOSTRIL-B ×2 (08:59→20:56)
[2022-12-01] MEDS: SODIUM CHLORIDE 0.9 % (FLUSH) 10 ML SYRINGE 5 ML IVF ×2 (09:00→21:03)
[2022-12-01 11:00] VITALS: BP 147/68; PULSE 60; RESP 16; TEMP 37.1; O2SAT 96
[2022-12-01 15:00] VITALS: BP 188/87; PULSE 59; PULSE 61; RESP 16; TEMP 36.4; O2SAT 96
[2022-12-01] MEDS: levoFLOXacin 500 MG TABLET PO (15:11)
[2022-12-01 19:00] VITALS: BP 166/67; PULSE 60; RESP 16; TEMP 36.4; O2SAT 95
[2022-12-01] MEDS: MONTELUKAST 10 MG TABLET PO (20:58)
[2022-12-01] MEDS: PRAVASTATIN SODIUM 20 MG TABLET 80 MG PO (20:58)
[2022-12-01] MEDS: ENOXAPARIN 40 MG/0.4 ML INJ SUBCUT (21:02)
[2022-12-01 22:30] VITALS: BP 159/68; PULSE 60; RESP 16; TEMP 36.6; O2SAT 95
[2022-12-02 03:00] VITALS: BP 141/61; PULSE 57; RESP 16; TEMP 36.6; O2SAT 95
--- NOTE | 2022-12-02 06:32 | PC.NURSE ---
Shift note: Patient has been in bed throughout the shift. There has been fluctuation in bloog sugar level tonight. At 0420
[2022-12-02 06:36] LABS: Hematocrit 30.5 % (37.0-53.0); Hemoglobin* 10.1 gm/dL (13.5-17.5); Mean Corpuscular HGB Conc 33 gm/dL (32-36); Mean Corpuscular Hemoglobin 35 pg (26-34); Mean Corpuscular Volume 106 fL (80-100); Platelet Count* 278 K/uL (140-440); Red Blood Count 2.89 m/uL (4.30-5.90); White Blood Count* 3.68 K/uL (4.50-11.00)
--- NOTE | 2022-12-02 06:38 | PC.NURSE ---
Shift note: Pt has been in bed throughout the shift. Appears doing well except that the blood sugar level has been fluctuating tonight. At 0420, blood sugar dropped to 92. Snacks were given, rechecked at 0600 was 154. Bp has remained high with systolic above 140. Flynn colored urine noted. Pt denied pain, SOB,and cough. 2hrly blood sugar monitored. Pt had adequate sleep.
[2022-12-02 07:00] VITALS: BP 162/66; PULSE 57; PULSE 60; PULSE 72; RESP 16; TEMP 36.6; O2SAT 96; O2SAT 98
[2022-12-02 07:19] LABS: Chloride* 101 mmol/L (96-114); Potassium* 4.1 mmol/L (3.6-5.1); Sodium* 133 mmol/L (135-149)
[2022-12-02 07:21] LABS: Slide Review Reflex No
[2022-12-02 07:22] LABS: Creatinine* 0.8 mg/dL (0.5-1.5); Est. Creatinine Clearance* 69.64; Estimated Glomerular Filt Rate 90 ml/min
[2022-12-02 07:23] LABS: Blood Urea Nitrogen* 15 mg/dL (7-30); Carbon Dioxide* 29 mmol/L (20-32); Glucose* 137 mg/dL (60-115)
[2022-12-02 07:39] LABS: Procalcitonin* 0.57 ng/mL (<0.50)
[2022-12-02 07:47] LABS: Troponin I* 0.18 ng/mL (0.01-0.04)
[2022-12-02] MEDS: ASPIRIN 81 MG TABLET EC PO (09:44)
[2022-12-02] MEDS: SENNOSIDES 1 TAB TABLET 2 TAB PO (09:44)
[2022-12-02] MEDS: CETIRIZINE HCL 10 MG TABLET PO (09:44)
[2022-12-02] MEDS: ACETAMINOPHEN 500 MG TABLET 1000 MG PO (09:44)
[2022-12-02] MEDS: FLUTICASONE PROPIONATE NASAL 1 SPRAY NOSTRIL-B (09:46)
[2022-12-02] MEDS: HYDROXYUREA 500 MG CAPSULE PO (09:46)
--- NOTE | 2022-12-02 12:12 | PC.NURSE ---
Patient discharged back down to alf care. Belongings/paper orders and medications were sent with patient. In person - nurse to nurse was given to LTC staff. Pt was returned to recliner in his previous residence. Before discharge patient was able to have a large bowel movement and was up to the shower.
--- NOTE | 2022-12-02 16:03 | P.DS_ITS ---
DS: Providers Provider Date Seen: 12/02/22 Date of admission: 11/29/22 07:50 Primary care physician: Sam Ruelas MD Admitting Clinician: Jyoti Richey MD Consults: 11/29/22 07:50 Consult to Psychologist Military Personnel [CONS] Routine Comment: Reason for Consult:: Social Service Consult Attending Physician on discharge: Miriam Oreilly MD Date of Discharge: 12/02/22 DS: Diagnosis Discharge Diagnosis (1) Diabetic ketoacidosis: Status: Acute Problem details: -attributed to right middle lobe pneumonia -DKA resolved quickly with the insulin drip and was transitioned back to basal bolus subcu insulin (2) RLL pneumonia: Status: Acute Problem details: -treated with IV Zosyn and discharged on Levaquin (3) Demand ischemia: Status: Acute Problem details: -no chest pain. monitor. likely from acute illness. Down trending. (4) Chronic kidney disease: Status: Chronic Problem details: Monitor and manage in the context of DKA and critical illness (5) On home oxygen therapy: Status: Chronic Problem details: 2 L at baseline, history of COPD and AARON. (6) Mild cognitive impairment: Status: Chronic Problem details: Lifelong. Appropriate for long-term care facility. (7) Severe chronic obstructive pulmonary disease: Status: Chronic Problem details: Monitor respiratory status closely with fluid resuscitation and COPD (8) Hypertension: Status: Chronic Problem details: Reassess blood pressure management once he is stabilized and electrolytes have normalized (9) Obstructive sleep apnea: Status: Chronic Problem details: has home CPAP (10) Type 2 diabetes mellitus: Status: Chronic Problem details: A1C 9.0. adjust insulin regimen. DS: Summary Hospital Course Hospital Course: HOSPITALIST DISCHARGE SUMMARY ATTENDING PHYSICIAN: Miriam Oreilly MD FINAL DIAGNOSIS: DKA Right middle lobe pneumonia Demand ischemia HOSPITAL FOLLOWUP ISSUES: 1. Dr. Ruelas -can follow labs and blood sugars as he will be a resident of the long-term care facility here at the [facility]. REFERRALS WHILE ADMITTED: PT and OT REFERRALS AFTER DISCHARGE: None BRIEF HOSPITAL COURSE: Patient is well known to the hospital medicine service. He presented in DKA with a pH of 7.1 and a blood sugar of over 1000. His initial anion gap was 20. Subsequently, we initiated IV insulin therapy. His acidosis resolved. Clinically he felt much better. We identified a right middle lobe pneumonia as a likely cause of his DKA. This was treated with Zosyn and subsequently with oral Levaquin at discharge. His oxygen requirement was unchanged from baseline, 2 L for AARON and COPD, severe. His appetite returned. His strength and awareness was back to his baseline at discharge. The only change I made to his medications given short-term antibiotics, was to split his basal insulin dose to b.i.d. 15 units subQ. SUBSTANTIVE NOTATIONS ON IMAGING, LAB, MICROBIOLOGY/PATHOLOGY STUDIES: PH lalo was 7.187. Highest blood glucose was 1008 Anion gap 25 Chest x-ray showed a small right pleural effusion and adjacent right basilar density. DISCHARGE MEDICATIONS: See Reconciled list - SIGNIFICANT CHANGES: Basal insulin 15 units subQ b.i.d. Short course, 5 days of 500 mg Levaquin REVIEW OF SYSTEMS No new chest pain or dyspnea Pain controlled No voiding difficulties Tolerating diet challenge PHYSICAL EXAM: CONSTITUTIONAL: Back to his baseline. Happy. No acute distress. VITAL SIGNS: see record. HEENT: Normocephalic, atraumatic. PERRL, EOMI, conjunctivae pink, no scleral icterus. Ears and nose externally normal. Pharynx normal. NECK: No JVD. No carotid bruit, no thyromegaly, no adenopathy. CHEST: Clear to auscultation bilaterally. HEART: S1 and S2 normal. Edema ABDOMEN: Soft, nontender. Normal bowel sounds. MUSCULOSKELETAL: No gross joint deformity or swelling. NEURO: Cranial nerves intact. Grossly intact. No asymmetric findings. SKIN: No rashes, petechiae, concerning changes PSYCHIATRIC: Mood euthymic. DISPOSITION: [facility] long-term care Time spent on discharge 37 minutes. Status at Discharge Functional status at discharge: uses cane/walker Overall status at discharge: patient is back to baseline Time Spent with Patient Time attestation: Total time spent providing and/or coordinating discharge services: Time spent: Greater than 30 minutes Exam Const: Vital Signs, click to edit/add: Vital Signs - 24 hr 12/01/22 19:00 12/01/22 22:30 12/01/22 22:30 Temperature 97.5 F L Pulse Rate 60 Pulse Rate [Pulse Oximeter] 60 60 Respiratory Rate 16 16 Blood Pressure [Le ft Arm] 166/67 H Pulse Oximetry 95 Oxygen Delivery Me thod Room Air 12/01/22 22:30 12/01/22 22:30 12/02/22 03:00 Temperature 97.8 F 97.8 F Pulse Rate Pulse Rate [Pulse Oximeter] 60 57 L Respiratory Rate 16 16 16 Blood Pressure [Le ft Arm] 159/68 H 141/61 H Pulse Oximetry 95 95 95 Oxygen Delivery Me thod Room Air Room Air Room Air 12/02/22 07:00 12/02/22 07:00 12/02/22 07:00 Temperature Pulse Rate 72 Pulse Rate [Pulse Oximeter] 57 L Respiratory Rate 16 Blood Pressure [Le ft Arm] Pulse Oximetry 96 Oxygen Delivery Me thod 12/02/22 07:00 12/02/22 07:00 Temperature 98 F Pulse Rate Pulse Rate [Pulse Oximeter] 60 Respiratory Rate 16 16 Blood Pressure [Le ft Arm] 162/66 H Pulse Oximetry 96 98 Oxygen Delivery Me thod Room Air DS: Data Data Completed and Pending Completed studies during hospitalization: Procedures Reposition Right Upper Femur with Intramedullary Internal Fixation Device, Open Approach (08/10/22) Labs on day of discharge: Labs from last 24 hours 12/02/22 06:03 WBC 3.68 L RBC 2.89 L Hgb 10.1 L Hct 30.5 L MCV 106 H MCH 35 H MCHC 33 Plt Count 278 Sodium 133 L Potassium 4.1 Chloride 101 Carbon Dioxide 29 BUN 15 Creatinine 0.8 Estimated Creat Clear 69.64 Estimated GFR 90 Glucose 137 H Calcium 9.0 Troponin I 0.18 H* C-Reactive Protein 3.0 H Procalcitonin 0.57 H Preliminary micro results at discharge 11/29/22 23:05 Blood Culture - Preliminary Blood NO GROWTH AFTER 48 HOURS 11/29/22 23:00 Blood Culture - Preliminary Blood NO GROWTH AFTER 48 HOURS Discharge Plan Discharge Disposition: [facility] Date of Admission: 11/29/22 07:50 Attending Provider on Discharge: Miriam Oreilly Primary Care Provider: Sam Ruelas Condition: Unchanged Discharge Medications: New levofloxacin 500 mg Tablet 500 mg PO Q24H Qty: 7 0RF Continued aspirin 81 mg tablet,delayed release (DR/EC) 81 mg PO DAILY Hold Instructions: Resume on 09/09/22. Resume went on with Xarelto and twice a day aspirin Patient Comments: TAKE ONE TABLET BY MOUTH DAILY WITH A MEAL cetirizine 10 mg tablet 10 mg PO DAILY Patient Comments: TAKE 1 TABLET (10 MG) BY MOUTH ONCE DAILY. hydroxyurea 500 mg capsule 500 mg PO DAILY Patient Comments: TAKE 1 CAPSULE (500 MG) BY MOUTH ONCE DAILY. montelukast 10 mg tablet 10 mg PO HS Patient Comments: TAKE 1 TABLET BY MOUTH AT BEDTIME. pravastatin 80 mg tablet 80 mg PO HS Patient Comments: TAKE 1 TABLET (80 MG) BY MOUTH AT BEDTIME. sennosides [Senna Lax] 8.6 mg Tablet 17.2 mg PO BID Qty: 60 0RF albuterol sulfate [Ventolin HFA] 90 mcg/actuation Hfa Aerosol Inhaler 2 puff inhalation Q2H PRN (Reason: shortness of breath or wheezing) Qty: 8.5 3RF fluticasone propionate 50 mcg/actuation Lanse,Suspension 1 spray intranasal BID Qty: 16 0RF guaifenesin [Mucinex] 600 mg Tablet Extended Release 12hr 1,200 mg PO BID Qty: 90 0RF Spiriva with HandiHaler 18 mcg capsule, w/inhalation device 1 cap inhalation DAILY Qty: 60 2RF Rx Instructions: puncture 1 cap using device; one dose = 2 inhalations insulin aspart U-100 100 unit/mL (3 mL) insulin pen 10 unit subcut TIDWMEAL insulin aspart U-100 [Novolog FlexPen U-100 Insulin] 100 unit/mL (3 mL) Insul in Pen 1 sliding scale dose subcut TIDWM Rx Instructions: BG UNITS 201-250 2 250-300 4 301-350 6 351-400 8 401-450 10 451-500 12 OVER 500 14 acetaminophen 500 mg tablet 1,000 mg PO TID fluticasone propion-salmeterol [Advair Diskus] 500-50 mcg/dose blister with device 1 inh inhalation BID Changed insulin detemir U-100 100 unit/mL (3 mL) insulin pen 15 unit subcut BID Qty: 15 0RF Discharge Orders: Discharge Order (Routine); Ordered 12/02/22 Ordered By: Miriam Oreilly Additional Instructions: we feel the DKA was brought on by a pneumonia. the only change is the long acting insulin is now 15 units twice a day, instead of the previous larger one time dose in the am same sliding scale and mealtime regimen limit access to sugar snacks. complete antibiotic. Activity Level: Activity as Tolerated Follow Up Appointments: Sam Ruelas MD [Primary Care Provider] - Admit to: SNF Discharge Potential: Fair Length of Stay: >90 days Can use facility standing orders?: Yes Code Status: DNR/DNI Rehab Potential: Fair Therapy Orders: Evaluate and Treat Oxygen Delivery Method: Nasal Cannula Orders are good >30 days: Yes
== END 2022-12-02 11:00 | DRG 637 ==
LOC: ED 05:09 → MEDSURG 16:04
PROVIDERS: Hospitalist; Admitting Provider Family Medicine; Emergency Provider Family Medicine; PCP Family Medicine; Visit Provider Family Medicine
DX: E11.10 Type 2 diabetes mellitus with ketoacidosis without coma (principal); J18.9 Pneumonia, unspecified organism; N17.9 Acute kidney failure, unspecified; I24.8 Other forms of acute ischemic heart disease; J44.0 Chronic obstructive pulmonary disease with (acute) lower respiratory infection; Z79.4 Long term (current) use of insulin; G47.33 Obstructive sleep apnea (adult) (pediatric); E86.0 Dehydration; G31.84 Mild cognitive impairment of uncertain or unknown etiology; I12.9 Hypertensive chronic kidney disease with stage 1 through stage 4 chronic kidney disease, or unspecified chronic kidney disease; E11.22 Type 2 diabetes mellitus with diabetic chronic kidney disease; N18.9 Chronic kidney disease, unspecified; Z99.81 Dependence on supplemental oxygen; Z86.12 Personal history of poliomyelitis
CPT/HCPCS: 36415; 51701; 71045; 71046; 80048; 80053; 81001; 81003; 81015; 82330; 82803; 82947; 82962; 83036; 83605; 83735; 83880; 84145; 84484; 85018; 85025; 85027; 86140; 87040; 87081; 87086; 93005; 94664; 94761; 99285; 99291; 99292; A9270; C9113; J1650; J2405; J2543; J3590; J7030; J7050; J7120; P9047; S0176

== ENCOUNTER 2022-12-28 10:17 | Outpatient (CLI) | payer OTHER, MEDICARE, SELFPAY | END 2022-12-28 10:18 | disposition home or self-care (01) | LOC: WOUND 10:18 | PROVIDERS: PCP Family Medicine; Visit Provider Nurse Practitioner Family | DX: E11.621 Type 2 diabetes mellitus with foot ulcer (principal); L89.610 Pressure ulcer of right heel, unstageable; L89.620 Pressure ulcer of left heel, unstageable; Z79.4 Long term (current) use of insulin | CPT/HCPCS: 99214 ==

== ENCOUNTER 2023-01-02 14:52 | Outpatient (CLI) | payer OTHER, MEDICAID, SELFPAY ==
--- NOTE | 2023-01-02 15:00 | CRLHL7_ITS ---
For Patients: As a result of the Century Cures Act, medical imaging exams and procedure reports are released immediately into your electronic medical record. You may view this report before your referring provider. If you have questions, please contact your health care provider. INDICATION: Bilateral nonhealing wounds TECHNIQUE: The bilateral lower extremity extremity arteries were examined per exam specific protocol. Ultrasound performed using real-time zepeda scale imaging (B-mode 2D), color-flow Doppler and spectral analysis. Peak systolic velocities (PSV), Doppler waveform quality and velocity ratios if applicable, were documented at sites per exam specific protocol. COMPARISON: None available FINDINGS: RIGHT: SUPPORT SERVICES COORDINATOR: 118 cm/sec; triphasic waveforms PFA: 106 cm/sec; triphasic waveforms SFA PROX: 73 cm/sec; triphasic waveforms SFA MID: 95 cm/sec; triphasic waveforms SFA DIST: 99 cm/sec; biphasic waveforms POP PROX: 104 cm/sec; triphasic waveforms POP DIST: 224 cm/sec; monophasic waveforms (ratio 2:1) CONDU[address] RO[address] FREIGHT: 109 cm/sec; monophasic waveforms Peroneal: Occluded EL: 24 cm/sec; monophasic waveforms DPA: 15 cm/sec; monophasic waveforms LEFT: SUPPORT SERVICES COORDINATOR: 87 cm/sec; triphasic waveforms PFA: 74 cm/sec; triphasic waveforms SFA PROX: 74 cm/sec; triphasic waveforms SFA MID: 101 cm/sec; triphasic waveforms SFA DIST: 80 cm/sec; triphasic waveforms POP PROX: 129 cm/sec; triphasic waveforms POP DIST: 121 cm/sec; triphasic waveforms [address] FREIGHT: 126 cm/sec; monophasic waveforms Peroneal: 112 cm/sec; biphasic waveforms EL: 111 cm/sec; triphasic waveforms DPA: 16 cm/sec; monophasic waveforms IMPRESSION: 1. On the right, no evidence of hemodynamically significant stenosis in the common femoral or superficial arteries. Velocities shift in popliteal artery suggesting 50 percent narrowing. 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 2. On the left, no evidence of hemodynamically significant common femoral/superficial femoral/popliteal disease. Monophasic flow in the posterior tibial and dorsalis pedis artery suggesting some degree of runoff disease. Dictated by Brent Laughlin MD @ 01/03/2023 9:24:38 AM (Electronically Signed)
== END 2023-01-02 14:53 | disposition home or self-care (01) ==
LOC: US 14:53
PROVIDERS: PCP Family Medicine; Visit Provider Nurse Practitioner Family
DX: S81.802A Unspecified open wound, left lower leg, initial encounter (principal); S81.801A Unspecified open wound, right lower leg, initial encounter; I77.1 Stricture of artery
CPT/HCPCS: 93926

== ENCOUNTER 2023-01-04 11:25 | Outpatient (CLI) | payer OTHER, MEDICAID, SELFPAY | END 2023-01-04 11:26 | disposition home or self-care (01) | PROVIDERS: PCP Family Medicine; Visit Provider Nurse Practitioner Family | DX: E11.621 Type 2 diabetes mellitus with foot ulcer (principal); L89.610 Pressure ulcer of right heel, unstageable; L89.620 Pressure ulcer of left heel, unstageable; Z79.4 Long term (current) use of insulin | CPT/HCPCS: 99213 ==

== ENCOUNTER 2023-01-11 11:23 | Outpatient (CLI) | payer OTHER, MEDICAID, SELFPAY | END 2023-01-11 11:24 | disposition home or self-care (01) | LOC: WOUND 11:23 | PROVIDERS: PCP Family Medicine; Visit Provider Nurse Practitioner Family | DX: E11.621 Type 2 diabetes mellitus with foot ulcer (principal); L89.610 Pressure ulcer of right heel, unstageable; L89.620 Pressure ulcer of left heel, unstageable; Z79.4 Long term (current) use of insulin | CPT/HCPCS: 97597 ==

== ENCOUNTER 2023-01-18 11:21 | Outpatient (CLI) | payer OTHER, MEDICAID, SELFPAY | END 2023-01-18 11:22 | disposition home or self-care (01) | LOC: WOUND 11:21 | PROVIDERS: PCP Family Medicine; Visit Provider Nurse Practitioner Family | DX: E11.621 Type 2 diabetes mellitus with foot ulcer (principal); L89.620 Pressure ulcer of left heel, unstageable; L89.610 Pressure ulcer of right heel, unstageable; Z79.4 Long term (current) use of insulin | CPT/HCPCS: 87070; 87186; 97597; 97598 ==

== ENCOUNTER 2023-01-18 14:38 | Outpatient (CLI) | payer OTHER, MEDICAID, SELFPAY ==
--- NOTE | 2023-01-18 14:35 | CRLHL7_ITS ---
For Patients: As a result of the Cures Act, medical imaging exams and procedure reports are released immediately into your electronic medical record. You may view this report before your referring provider. If you have questions, please contact your health care provider. INDICATION: Evaluate heel for infection TECHNIQUE: Two views calcaneus FINDINGS: Normal alignment. Posterior and plantar soft tissue thickening. Mild scattered lucencies within the soft tissues soft tissue gas cannot be completely excluded. No bony destructive soft change or erosive change is visualized. No radiographic findings for osteomyelitis. Dictated by Marija Alvarado MD @ 01/20/2023 3:08:35 PM (Electronically Signed)
--- NOTE | 2023-01-18 14:50 | CRLHL7_ITS ---
For Patients: As a result of the Cures Act, medical imaging exams and procedure reports are released immediately into your electronic medical record. You may view this report before your referring provider. If you have questions, please contact your health care provider. INDICATION: Evaluate for infection TECHNIQUE: Two views of the right calcaneus FINDINGS: Normal alignment. Soft tissue thickening lucencies are seen within the calcaneal soft tissues which may represent soft tissue gas mild calcaneal spur. Postsurgical changes partially seen. No erosive change. No radiographic findings for osteomyelitis. Vascular calcifications. Dictated by Marija Alvarado MD @ 01/20/2023 3:09:59 PM (Electronically Signed)
== END 2023-01-18 14:39 | disposition home or self-care (01) ==
LOC: RAD 14:39
PROVIDERS: PCP Family Medicine; Visit Provider Nurse Practitioner Family
DX: L89.610 Pressure ulcer of right heel, unstageable (principal); L89.620 Pressure ulcer of left heel, unstageable
CPT/HCPCS: 73650; 87070; 87186

== ENCOUNTER 2023-01-31 13:45 | Outpatient (CLI) | payer OTHER, MEDICAID, SELFPAY | END 2023-01-31 13:46 | disposition home or self-care (01) | LOC: WOUND 13:45 | PROVIDERS: PCP Family Medicine; Visit Provider Nurse Practitioner Family | DX: E11.621 Type 2 diabetes mellitus with foot ulcer (principal); L89.610 Pressure ulcer of right heel, unstageable; L89.620 Pressure ulcer of left heel, unstageable; I73.9 Peripheral vascular disease, unspecified; Z79.4 Long term (current) use of insulin | CPT/HCPCS: 97597; 97598 ==

== ENCOUNTER 2023-02-08 10:14 | Outpatient (CLI) | payer OTHER, MEDICAID, SELFPAY | END 2023-02-08 10:15 | disposition home or self-care (01) | PROVIDERS: PCP Family Medicine; Visit Provider Nurse Practitioner Family | DX: E11.621 Type 2 diabetes mellitus with foot ulcer (principal); L89.610 Pressure ulcer of right heel, unstageable; L89.620 Pressure ulcer of left heel, unstageable; Z79.4 Long term (current) use of insulin | CPT/HCPCS: 97597 ==

== ENCOUNTER 2023-02-15 10:22 | Outpatient (CLI) | payer BC, SELFPAY | END 2023-02-15 10:23 | disposition home or self-care (01) | PROVIDERS: PCP Family Medicine; Visit Provider Nurse Practitioner Family | DX: E11.621 Type 2 diabetes mellitus with foot ulcer (principal); L89.610 Pressure ulcer of right heel, unstageable; L89.620 Pressure ulcer of left heel, unstageable; I73.9 Peripheral vascular disease, unspecified; D45 Polycythemia vera; Z79.4 Long term (current) use of insulin | CPT/HCPCS: 97597 ==

== ENCOUNTER 2023-02-22 10:14 | Outpatient (CLI) | payer BC, SELFPAY | END 2023-02-22 10:15 | disposition home or self-care (01) | PROVIDERS: PCP Family Medicine; Visit Provider Nurse Practitioner Family | DX: E11.621 Type 2 diabetes mellitus with foot ulcer (principal); L89.620 Pressure ulcer of left heel, unstageable; Z79.4 Long term (current) use of insulin; L89.610 Pressure ulcer of right heel, unstageable | CPT/HCPCS: 97597; 97598 ==

== ENCOUNTER 2023-03-01 10:14 | Outpatient (CLI) | payer BC, SELFPAY | END 2023-03-01 10:15 | disposition home or self-care (01) | LOC: WOUND 10:14 | PROVIDERS: PCP Family Medicine; Visit Provider Nurse Practitioner Family | DX: E11.621 Type 2 diabetes mellitus with foot ulcer (principal); L89.610 Pressure ulcer of right heel, unstageable; L89.620 Pressure ulcer of left heel, unstageable; Z79.4 Long term (current) use of insulin | CPT/HCPCS: 11042; 97597 ==

== ENCOUNTER 2023-03-08 10:27 | Outpatient (CLI) | payer BC, SELFPAY | END 2023-03-08 10:28 | disposition home or self-care (01) | LOC: WOUND 10:28 | PROVIDERS: PCP Family Medicine; Visit Provider Nurse Practitioner Family | DX: E11.621 Type 2 diabetes mellitus with foot ulcer (principal); L89.620 Pressure ulcer of left heel, unstageable; L89.610 Pressure ulcer of right heel, unstageable; Z79.4 Long term (current) use of insulin | CPT/HCPCS: 97597 ==

== ENCOUNTER 2023-03-15 09:50 | Outpatient (CLI) | payer BC, SELFPAY | END 2023-03-15 09:51 | disposition home or self-care (01) | PROVIDERS: PCP Family Medicine; Visit Provider Nurse Practitioner Family | DX: E11.621 Type 2 diabetes mellitus with foot ulcer (principal); L89.610 Pressure ulcer of right heel, unstageable; L89.620 Pressure ulcer of left heel, unstageable; Z79.4 Long term (current) use of insulin | CPT/HCPCS: 97597; 97598 ==

== ENCOUNTER 2023-03-22 10:58 | Outpatient (CLI) | payer BC, SELFPAY | END 2023-03-22 10:59 | disposition home or self-care (01) | LOC: WOUND 10:58 | PROVIDERS: PCP Family Medicine; Visit Provider Nurse Practitioner Family | DX: E11.621 Type 2 diabetes mellitus with foot ulcer (principal); L97.412 Non-pressure chronic ulcer of right heel and midfoot with fat layer exposed; L97.422 Non-pressure chronic ulcer of left heel and midfoot with fat layer exposed; I73.9 Peripheral vascular disease, unspecified; Z79.4 Long term (current) use of insulin | CPT/HCPCS: 97597 ==

== ENCOUNTER 2023-03-29 10:04 | Outpatient (CLI) | payer BC, SELFPAY | END 2023-03-29 10:05 | disposition home or self-care (01) | LOC: WOUND 10:04 | PROVIDERS: PCP Family Medicine; Visit Provider Nurse Practitioner Family | DX: E11.621 Type 2 diabetes mellitus with foot ulcer (principal); L97.412 Non-pressure chronic ulcer of right heel and midfoot with fat layer exposed; L97.422 Non-pressure chronic ulcer of left heel and midfoot with fat layer exposed; Z79.4 Long term (current) use of insulin | CPT/HCPCS: 97597 ==

== ENCOUNTER 2023-04-05 10:07 | Outpatient (CLI) | payer BC, SELFPAY | END 2023-04-05 10:08 | disposition home or self-care (01) | LOC: WOUND 10:07 | PROVIDERS: PCP Family Medicine; Visit Provider Nurse Practitioner Family | DX: E11.621 Type 2 diabetes mellitus with foot ulcer (principal); L97.412 Non-pressure chronic ulcer of right heel and midfoot with fat layer exposed; L97.422 Non-pressure chronic ulcer of left heel and midfoot with fat layer exposed; Z79.4 Long term (current) use of insulin | CPT/HCPCS: 11042 ==

== ENCOUNTER 2023-04-12 10:04 | Outpatient (CLI) | payer BC, SELFPAY | END 2023-04-12 10:05 | disposition home or self-care (01) | LOC: WOUND 10:04 | PROVIDERS: PCP Family Medicine; Visit Provider Nurse Practitioner Family | DX: E11.621 Type 2 diabetes mellitus with foot ulcer (principal); L97.412 Non-pressure chronic ulcer of right heel and midfoot with fat layer exposed; L97.422 Non-pressure chronic ulcer of left heel and midfoot with fat layer exposed; Z79.4 Long term (current) use of insulin | CPT/HCPCS: 15275; Q4158 ==

== ENCOUNTER 2023-04-18 14:16 | Outpatient (CLI) | payer BC, SELFPAY | END 2023-04-18 14:17 | disposition home or self-care (01) | LOC: WOUND 14:16 | PROVIDERS: PCP Family Medicine; Visit Provider Nurse Practitioner Family | DX: E11.621 Type 2 diabetes mellitus with foot ulcer (principal); L97.422 Non-pressure chronic ulcer of left heel and midfoot with fat layer exposed; Z79.4 Long term (current) use of insulin | CPT/HCPCS: 11042 ==

== ENCOUNTER 2023-04-25 09:15 | Outpatient (CLI) | payer BC, SELFPAY | END 2023-04-25 09:16 | disposition home or self-care (01) | LOC: WOUND 09:15 | PROVIDERS: PCP Family Medicine; Visit Provider Nurse Practitioner Family | DX: E11.621 Type 2 diabetes mellitus with foot ulcer (principal); L97.412 Non-pressure chronic ulcer of right heel and midfoot with fat layer exposed; L97.422 Non-pressure chronic ulcer of left heel and midfoot with fat layer exposed; S81.011A Laceration without foreign body, right knee, initial encounter; S80.212A Abrasion, left knee, initial encounter; W19.XXXA Unspecified fall, initial encounter; Z79.4 Long term (current) use of insulin | CPT/HCPCS: 97597; 99214 ==

== ENCOUNTER 2023-05-02 09:38 | Outpatient (CLI) | payer BC, SELFPAY | END 2023-05-02 09:39 | disposition home or self-care (01) | LOC: WOUND 09:38 | PROVIDERS: PCP Family Medicine; Visit Provider Nurse Practitioner Family | DX: E11.621 Type 2 diabetes mellitus with foot ulcer (principal); L97.412 Non-pressure chronic ulcer of right heel and midfoot with fat layer exposed; L97.422 Non-pressure chronic ulcer of left heel and midfoot with fat layer exposed; S81.011A Laceration without foreign body, right knee, initial encounter; Z79.4 Long term (current) use of insulin | CPT/HCPCS: 11042; 97602 ==

== ENCOUNTER 2023-05-16 09:05 | Outpatient (CLI) | payer BC, SELFPAY | END 2023-05-16 09:06 | disposition home or self-care (01) | LOC: WOUND 09:06 | PROVIDERS: PCP Family Medicine; Visit Provider Nurse Practitioner Family | DX: E11.621 Type 2 diabetes mellitus with foot ulcer (principal); L97.412 Non-pressure chronic ulcer of right heel and midfoot with fat layer exposed; L97.422 Non-pressure chronic ulcer of left heel and midfoot with fat layer exposed; Z79.4 Long term (current) use of insulin | CPT/HCPCS: 97597 ==

== ENCOUNTER 2023-05-30 09:07 | Outpatient (CLI) | payer BC, SELFPAY | END 2023-05-30 09:08 | disposition home or self-care (01) | LOC: WOUND 09:07 | PROVIDERS: PCP Family Medicine; Visit Provider Nurse Practitioner Family | DX: E11.621 Type 2 diabetes mellitus with foot ulcer (principal); L97.412 Non-pressure chronic ulcer of right heel and midfoot with fat layer exposed; L97.422 Non-pressure chronic ulcer of left heel and midfoot with fat layer exposed; Z79.4 Long term (current) use of insulin | CPT/HCPCS: 97597 ==

== ENCOUNTER 2023-06-27 09:19 | Outpatient (CLI) | payer BC, SELFPAY | END 2023-06-27 09:20 | disposition home or self-care (01) | PROVIDERS: PCP Family Medicine; Visit Provider Nurse Practitioner Family | DX: E11.621 Type 2 diabetes mellitus with foot ulcer (principal); L97.412 Non-pressure chronic ulcer of right heel and midfoot with fat layer exposed; L89.893 Pressure ulcer of other site, stage 3; Z79.4 Long term (current) use of insulin | CPT/HCPCS: 11042; 97597; G0463 ==

== ENCOUNTER 2023-07-04 10:52 | Outpatient (CLI) | payer BC, SELFPAY | END 2023-07-04 10:53 | disposition home or self-care (01) | LOC: WOUND 10:52 | PROVIDERS: PCP Family Medicine; Visit Provider Nurse Practitioner Family | DX: E11.621 Type 2 diabetes mellitus with foot ulcer (principal); L97.412 Non-pressure chronic ulcer of right heel and midfoot with fat layer exposed; L97.422 Non-pressure chronic ulcer of left heel and midfoot with fat layer exposed; L89.893 Pressure ulcer of other site, stage 3; Z79.4 Long term (current) use of insulin | CPT/HCPCS: 97597; G0463 ==

== ENCOUNTER 2023-07-11 09:49 | Outpatient (CLI) | payer BC, MEDICARE, SELFPAY | END 2023-07-11 09:50 | disposition home or self-care (01) | PROVIDERS: PCP Family Medicine; Visit Provider Nurse Practitioner Family | DX: E11.621 Type 2 diabetes mellitus with foot ulcer (principal); L89.893 Pressure ulcer of other site, stage 3; Z79.4 Long term (current) use of insulin | CPT/HCPCS: 97597 ==

== ENCOUNTER 2023-07-25 09:14 | Outpatient (CLI) | payer BC, MEDICARE, SELFPAY | END 2023-07-25 09:15 | disposition home or self-care (01) | LOC: WOUND 09:14 | PROVIDERS: PCP Family Medicine; Visit Provider Nurse Practitioner Family | DX: E11.621 Type 2 diabetes mellitus with foot ulcer (principal); L97.418 Non-pressure chronic ulcer of right heel and midfoot with other specified severity; L89.894 Pressure ulcer of other site, stage 4; Z79.4 Long term (current) use of insulin | CPT/HCPCS: 11043; 73660; G0463 ==

== ENCOUNTER 2023-08-08 08:54 | Outpatient (CLI) | payer BC, MEDICARE, SELFPAY | END 2023-08-08 08:55 | disposition home or self-care (01) | LOC: WOUND 08:55 | PROVIDERS: PCP Family Medicine; Visit Provider Nurse Practitioner Family | DX: M86.172 Other acute osteomyelitis, left ankle and foot (principal); E11.621 Type 2 diabetes mellitus with foot ulcer; L89.894 Pressure ulcer of other site, stage 4; Z79.4 Long term (current) use of insulin | CPT/HCPCS: 11044; 88307; 88311 ==

== ENCOUNTER 2023-08-22 09:07 | Outpatient (CLI) | payer BC, MEDICARE, SELFPAY | END 2023-08-22 09:08 | disposition home or self-care (01) | LOC: WOUND 09:07 | PROVIDERS: PCP Family Medicine; Visit Provider Nurse Practitioner Family | DX: E11.621 Type 2 diabetes mellitus with foot ulcer (principal); L97.526 Non-pressure chronic ulcer of other part of left foot with bone involvement without evidence of necrosis; I73.9 Peripheral vascular disease, unspecified; Z79.4 Long term (current) use of insulin | CPT/HCPCS: 11042; 87070; 87186 ==

== ENCOUNTER 2023-09-05 09:04 | Outpatient (CLI) | payer BC, MEDICARE, SELFPAY | END 2023-09-05 09:05 | disposition home or self-care (01) | LOC: WOUND 09:05 | PROVIDERS: PCP Family Medicine; Visit Provider Nurse Practitioner Family | DX: E11.621 Type 2 diabetes mellitus with foot ulcer (principal); L97.526 Non-pressure chronic ulcer of other part of left foot with bone involvement without evidence of necrosis; Z79.4 Long term (current) use of insulin | CPT/HCPCS: 11042 ==

== ENCOUNTER 2023-09-19 09:08 | Outpatient (CLI) | payer BC, MEDICARE, SELFPAY | END 2023-09-19 09:09 | disposition home or self-care (01) | LOC: WOUND 09:09 | PROVIDERS: PCP Family Medicine; Visit Provider Nurse Practitioner Family | DX: E11.621 Type 2 diabetes mellitus with foot ulcer (principal); L97.526 Non-pressure chronic ulcer of other part of left foot with bone involvement without evidence of necrosis; Z79.4 Long term (current) use of insulin | CPT/HCPCS: G0463 ==

== ENCOUNTER 2023-10-03 09:29 | Outpatient (CLI) | payer BC, SELFPAY | END 2023-10-03 09:30 | disposition home or self-care (01) | LOC: WOUND 09:29 | PROVIDERS: PCP Family Medicine; Visit Provider Nurse Practitioner Family | DX: E11.621 Type 2 diabetes mellitus with foot ulcer (principal); L97.522 Non-pressure chronic ulcer of other part of left foot with fat layer exposed; Z79.4 Long term (current) use of insulin | CPT/HCPCS: 11042 ==

== ENCOUNTER 2023-10-17 09:12 | Outpatient (CLI) | payer BC, SELFPAY | END 2023-10-17 09:13 | disposition home or self-care (01) | LOC: WOUND 09:12 | PROVIDERS: PCP Family Medicine; Visit Provider Nurse Practitioner Family | DX: E11.621 Type 2 diabetes mellitus with foot ulcer (principal); L97.522 Non-pressure chronic ulcer of other part of left foot with fat layer exposed; I73.9 Peripheral vascular disease, unspecified; D45 Polycythemia vera; Z79.4 Long term (current) use of insulin | CPT/HCPCS: 11042 ==

== ENCOUNTER 2023-10-23 11:47 | Outpatient (CLI) | payer BC, SELFPAY | END 2023-10-23 11:48 | disposition home or self-care (01) | LOC: AMB 10-24 08:06 | PROVIDERS: PCP Family Medicine; Visit Provider Family Medicine | DX: K92.0 Hematemesis (principal) | CPT/HCPCS: A0425; A0429 ==

== ENCOUNTER 2023-10-23 12:05 | Inpatient (IN) | payer BC, SELFPAY ==
[2023-10-23] VITALS (20 sets, daily range): BP systolic 105–134; BP diastolic 43–62; PULSE 40–46; RESP 16–20; TEMP 36.2–36.9; O2SAT 93–97; BMI 23.7; BMI 24.4
--- NOTE | 2023-10-23 12:30 | ED.GENADULT ---
HPI - General Adult General Chief complaint: Weakness Stated complaint: weakness Time Seen by Provider: 10/23/23 12:06 History of Present Illness HPI narrative: [age] year white male presents by ambulance from [facility] assisted living, he has had some weakness today. He has a history of what sounds like blood cancer that he is cared for at [facility], he has had an episode of vomiting last couple of days which she tends to have over the last few months by his report. There has been a couple of blood tinged flex in his vomitus. He does not feel lightheaded or dizzy. His hemoglobin was low at 7.1 and he was sent to the emergency department. He denies any black stools he denies any significant vomiting of blood he denies any chest pain or breathing difficulty. He denies abdominal pain. He does not recall having a transfusion the past he does not recall having an endoscopy in the past. His pulse today has been the upper 40s and low 50s and typically runs about 50-60. He reports he has some type of advanced care plan, but his sister has it and she will be arriving to the hospital at some point. Related Data Home Medications Medication Instructions Recorded Confirmed aspirin 81 mg tablet,delayed 81 mg PO DAILY 08/10/22 10/23/23 release cetirizine 10 mg tablet 10 mg PO DAILY 08/10/22 10/23/23 montelukast 10 mg tablet 10 mg PO HS 08/10/22 10/23/23 pravastatin 80 mg tablet 80 mg PO HS 08/10/22 10/23/23 acetaminophen 500 mg tablet 500 mg PO Q6H PRN 08/18/22 10/23/23 fluticasone 500 mcg-salmeterol 50 1 inh inhalation BID 08/18/22 10/23/23 mcg/dose blistr powdr for inhalation (Advair Diskus) clobetasol 0.05 % topical ointment 1 applic topical BID 10/23/23 10/23/23 emollient (Vanicream topical) 1 applic topical DAILY 10/23/23 10/23/23 guaifenesin 600 mg tablet, 600 mg PO BID 10/23/23 10/23/23 extended release 12 hr (Mucinex) insulin detemir U-100 100 unit/mL 8 - 18 unit subcut BID 10/23/23 10/23/23 (3 mL) subcutaneous pen insulin lispro 100 unit/mL 5 - 10 unit subcut TIDWM 10/23/23 10/23/23 subcutaneous pen ketoconazole 2 % topical cream 1 applic topical BID 10/23/23 10/23/23 nystatin 100,000 unit/gram topical 1 applic topical BID PRN 10/23/23 10/23/23 powder sennosides 8.6 mg tablet (Senna 8.6 mg PO BID 10/23/23 10/23/23 Lax) tiotropium bromide 18 mcg capsule 1 cap inhalation DAILY 10/23/23 10/23/23 with inhalation device (Spiriva with HandiHaler) triamcinolone acetonide 0.1 % 1 applic topical BID 10/23/23 10/23/23 topical cream Previous Rx's Medication Instructions Recorded albuterol sulfate 90 mcg/actuation 2 puff inhalation Q2H PRN 08/14/22 aerosol inhaler (Ventolin HFA) shortness of breath or wheezing #8.5 grams Allergies Allergy/AdvReac Type Severity Reaction Status Date / Time No Known Drug Allergies Allergy Verified 10/23/23 12:24 Review of Systems Status of ROS: Reports: 6 or more systems reviewed and unremarkable except as noted in History and below [facility] Medical History (Updated 10/23/23 @ 15:15 by Gin Diamond MD) Polycythemia vera ?D45 - Polycythemia vera (ICD-10) Type 2 diabetes mellitus with hyperglycemia ?E11.65 - Type 2 diabetes mellitus with hyperglycemia (ICD-10) Health care directive on file ?Z78.9 - Other specified health status (ICD-10) Severe chronic obstructive pulmonary disease ?J44.9 - Chronic obstructive pulmonary disease, unspecified (ICD-10) Mild cognitive impairment ?G31.84 - Mild cognitive impairment of uncertain or unknown etiology (ICD-10) History of poliomyelitis ?Z86.12 - Personal history of poliomyelitis (ICD-10) On home oxygen therapy ?Z99.81 - Dependence on supplemental oxygen (ICD-10) Thrombocythemia ?D75.839 - Thrombocytosis, unspecified (ICD-10) Chronic kidney disease ?N18.9 - Chronic kidney disease, unspecified (ICD-10) Obstructive sleep apnea ?G47.33 - Obstructive sleep apnea (adult) (pediatric) (ICD-10) Type 2 diabetes mellitus ?E11.9 - Type 2 diabetes mellitus without complications (ICD-10) Hypertension ?I10 - Essential (primary) hypertension (ICD-10) Surgical History History of open reduction and internal fixation (ORIF) procedure (08/14/22) ?Z98.890 - Other specified postprocedural states (ICD-10) History of cataract surgery ?Z98.49 - Cataract extraction status, unspecified eye (ICD-10) H/O foot surgery ?Z98.890 - Other specified postprocedural states (ICD-10) Family History Father Diabetes Mother Breast cancer Social History (Updated 10/23/23 @ 14:35 by Gin Diamond MD) Narrative: Resident of our [facility]. Former smoker, no ETOH. Requests Full Code status on 10/23/23. Indicates that his brother Boo and sister Joyce should be making healthcare decisions. What is your current living situation?: I presently have a place to live Problems where you live: no known problems Problems where you live details: none In the past 12 months, utilities in danger of being shut off: no In past 12 months, lack of transportation kept you from medical appts, meetings, work, or getting things needed for daily living: no In the past 12 mos, have been you worried that your food would run out before you had money to buy more?: never true In the past 12 mos, the food you bought just didn't last and you didn't have money to buy more?: never true Highest level of school completed/degree received: high school graduate Smoking Status: Former smoker What tobacco products do you use: cigars and pipe Do you use any of these nicotine containing products: None Second hand tobacco smoke exposure: No How often do you have a drink containing alcohol: never How often do you have six or more drinks on one occasion: Never AUDIT-C Alcohol total score: 0 Non-prescribed substance use: denies use Caffeine: Yes How often does anyone, including family, friends and others, physically hurt you: never How often does anyone, including family, friends and others, insult or talk down to you: never How often does anyone, including family, friends and others, threaten you with harm: never How often does anyone, including family, friends and others, scream or curse at you: never service: No Exam Narrative: Exam Narrative: Objective: Objective patient's pulse is low in the 40-50 range blood pressure 105/43 afebrile, O2 sat 96% on room air He is pale Conjunctiva pale He is alert or x3, no facial asymmetry mouth is clear Neck is supple Chest clear Pulses regular Abdomen benign soft nontender Extremities are no edema Neurologic grossly nonfocal Const: Vital Signs, click to edit/add: Vital Signs - 24 hr 10/23/23 12:17 10/23/23 12:19 10/23/23 12:41 Temperature 97.6 F Pulse Rate 45 L Pulse Rate [Pulse Oximeter] 46 L Respiratory Rate 18 Blood Pressure Blood Pressure [Ri ght Upper Arm] 105/43 L Pulse Oximetry 96 94 94 Oxygen Delivery Me thod Room Air 10/23/23 12:45 10/23/23 13:00 10/23/23 13:03 Temperature Pulse Rate 43 L 44 L 44 L Pulse Rate [Pulse Oximeter] Respiratory Rate Blood Pressure 119/47 L Blood Pressure [Ri ght Upper Arm] Pulse Oximetry 94 94 94 Oxygen Delivery Me thod 10/23/23 13:15 10/23/23 13:30 Temperature Pulse Rate 43 L 43 L Pulse Rate [Pulse Oximeter] Respiratory Rate Blood Pressure Blood Pressure [Ri ght Upper Arm] Pulse Oximetry 94 96 Oxygen Delivery Me thod Course Vital Signs Vital signs: Initial Vital Signs Temperature 97.6 F 10/23/23 12:17 Temperature Source Temporal Artery Scan 10/23/23 12:17 Pulse Rate 46 L 10/23/23 12:17 Respiratory Rate 18 10/23/23 12:17 Blood Pressure 105/43 L 10/23/23 12:17 Blood Pressure Mean 63 L 10/23/23 12:17 Blood Pressure Position Sitting 10/23/23 12:17 Pulse Oximetry 96 10/23/23 12:17 Oxygen Delivery Method Room Air 10/23/23 12:17 Vital Signs Temperature 97.6 F 10/23/23 12:17 Pulse Rate 46 L 10/23/23 12:17 Respiratory Rate 18 10/23/23 12:17 Blood Pressure 105/43 L 10/23/23 12:17 Pulse Oximetry 96 10/23/23 12:17 Oxygen Delivery Method Room Air 10/23/23 12:17 Temperature 97.2 F L 10/23/23 15:05 Pulse Rate 41 L 10/23/23 15:05 Respiratory Rate 18 10/23/23 15:05 Blood Pressure 117/47 L 10/23/23 15:05 Pulse Oximetry 96 10/23/23 15:05 Oxygen Delivery Method Room Air 10/23/23 14:28 Medications Administered Medications: Discontinued Medications Generic Name Dose Route Start Last Admin Trade Name Urielq PRN Reason Stop Dose Admin Sodium Chloride 500 mls @ 500 mls/hr 10/23/23 12:18 10/23/23 13:46 0.9 % Sodium Chloride 500 Ml IV 10/23/23 13:17 Infused .Q1H ONE Infusion Pantoprazole Sodium 40 mg 10/23/23 12:18 10/23/23 12:50 Pantoprazole Sodium 40 Mg Inj IVP 10/23/23 12:19 40 mg ONCE ONE Administration Medical Decision Making MDM Narrative Medical decision making narrative: He 6 year white male with a history of some type of blood dyscrasia with anemia, and some Martina evidence of some blood tinged vomitus. At this point this has been going on for several days. They were observing it and held his aspirin at the nurse at the assisted living place. At this point I discussed with Dr. Diamond who agreed that we could transfuse the patient admit plan on endoscopy tomorrow, put on Protonix. Will check laboratory studies and an EKG. Will get a troponin as well. Addendum 1:31 p.m. the patient's hemoglobin is about the same, has not worsened. The patient has been hemodynamically stable. He will be admitted to the hospital and EGD tomorrow, he will get 2 units of blood, discussed Dr. Diamond who is agreeing to admit and proceed as above, IV Protonix. Lab Data Labs: Lab Results 10/23/23 10/23/23 Range/Units 12:20 12:43 WBC 9.69 (4.50-11.00) K/uL RBC 2.00 L (4.30-5.90) m/uL Hgb 7.2 L* (13.5-17.5) gm/dL Hct 22.5 L (37.0-53.0) % MCV 113 H (80-100) fL MCH 36 H (26-34) pg MCHC 32 (32-36) gm/dL RDW Coeff of Khushboo 14.4 (11.5-15.5) % Plt Count 349 (140-440) K/uL Neut % (Auto) 29.5 L (42.0-72.0) % Lymph % (Auto) 40.0 (20-44) % [place] % (Auto) 8.7 (0.0-11.0) % Eos % (Auto) 0.2 (0.0-7.0) % Baso % (Auto) 0.3 (0.0-3.0) % Neut # (Auto) 2.90 (1.7-7.0) K/uL Lymph # (Auto) 3.88 H (0.90-2.90) K/uL [place] # (Auto) 0.80 (0.00-0.90) K/UL Eos # (Auto) 0.02 (0.00-0.50) K/uL Baso # (Auto) 0.03 (0.00-0.30) K/uL Abs Immat Gran (auto) 2.06 H (0.00-0.30) K/uL Imm/Tot Granulo (auto) 21.3 % Diff Slide Review Acceptable Review (Acceptable) INR 1.11 H (0.91-1.10) APTT 37 H (23-33) Seconds Sodium 139 (135-149) mmol/L Potassium 4.7 (3.6-5.1) mmol/L Chloride 104 (96-114) mmol/L Carbon Dioxide 23 (20-32) mmol/L Anion Gap 12 (7-15) mEq/L BUN 83 H (7-30) mg/dL Creatinine 2.1 H (0.5-1.5) mg/dL Estimated Creat Clear 30.79 Estimated GFR 31 ml/min Glucose 204 H (60-115) mg/dL Calcium 9.2 (8.4-10.6) mg/dL Total Bilirubin 0.3 (0.1-1.5) mg/dL Direct Bilirubin 0.0 (0.0-0.5) mg/dL AST 26 (12-35) U/L ALT 19 (4-50) U/L Alkaline Phosphatase 117 (40-150) U/L Troponin I 0.02 (0.01-0.04) ng/mL NT-Pro-B Natriuret Pep 00370 pg/mL Total Protein 7.8 (6.0-8.3) g/dL Albumin 3.9 (3.3-5.0) g/dL SARS-CoV-2 (PCR) Negative SARS-CoV-2 (Negative) Influenza Type A (PCR) Negative PCR FLU A (Negative) Influenza Type B (PCR) Negative PCR FLU B (Negative) RSV (PCR) Negative PCR RSV (Negative) Blood Type O Positive Antibody Screen NEGATIVE Crossmatch (AHG) See Detail Discharge Plan Discharge Clinical Impression: GI bleed, Anemia Patient Disposition: Admitted As Observation
[2023-10-23] MEDS: 0.9 % SODIUM CHLORIDE 500 ML 500 ML IV (12:47)
[2023-10-23] MEDS: PANTOPRAZOLE SODIUM 40 MG INJ IVP (12:50)
[2023-10-23 13:09] LABS: Basophils Absolute Auto 0.03 K/uL (0.00-0.30); Basophils Percent Auto 0.3 % (0.0-3.0); Eosinophils Absolute Auto 0.02 K/uL (0.00-0.50); Eosinophils Percent Auto 0.2 % (0.0-7.0); Hematocrit 22.5 % (37.0-53.0); Immature Granulocytes Abs Auto 2.06 K/uL (0.00-0.30); Immature Granulocytes Pct Auto 21.3 %; Lymphocytes Absolute Auto 3.88 K/uL (0.90-2.90); Mean Corpuscular HGB Conc 32 gm/dL (32-36); Mean Corpuscular Hemoglobin 36 pg (26-34); Mean Corpuscular Volume 113 fL (80-100); Monocytes Percent Auto 8.7 % (0.0-11.0); Neutrophils Percent Auto 29.5 % (42.0-72.0); Platelet Count* 349 K/uL (140-440); RDW Coefficient of Variation % 14.4 % (11.5-15.5); White Blood Count* 9.69 K/uL (4.50-11.00)
[2023-10-23 13:12] LABS: Hemoglobin* 7.2 gm/dL (13.5-17.5); Slide Review Reflex Yes
[2023-10-23 13:13] LABS: PCR FLU A Negative PCR FLU A (Negative); PCR FLU B Negative PCR FLU B (Negative); PCR RSV Negative PCR RSV (Negative); SARS PCR* Negative SARS-CoV-2 (Negative)
--- NOTE | 2023-10-23 13:14 | ED.NURSE ---
Critical hemoglobin of 7.2, MD aware.
[2023-10-23 13:15] LABS: Albumin* 3.9 g/dL (3.3-5.0); Chloride* 104 mmol/L (96-114)
[2023-10-23 13:16] LABS: Potassium* 4.7 mmol/L (3.6-5.1); Sodium* 139 mmol/L (135-149)
[2023-10-23 13:18] LABS: Alanine Aminotransferase* 19 U/L (4-50); Alkaline Phosphatase* 117 U/L (40-150); Anion Gap 12 mEq/L (7-15); Aspartate Amino Transferase* 26 U/L (12-35); Bilirubin Total* 0.3 mg/dL (0.1-1.5); Blood Urea Nitrogen* 83 mg/dL (7-30); Carbon Dioxide* 23 mmol/L (20-32); Creatinine* 2.1 mg/dL (0.5-1.5); Est. Creatinine Clearance* 30.79; Estimated Glomerular Filt Rate 31 ml/min; Glucose* 204 mg/dL (60-115); INR 1.11 (0.91-1.10); Total Protein* 7.8 g/dL (6.0-8.3)
[2023-10-23 13:19] LABS: Calcium* 9.2 mg/dL (8.4-10.6); Partial Thromboplastin Time* 37 Seconds (23-33)
[2023-10-23 13:30] LABS: Troponin I* 0.02 ng/mL (0.01-0.04)
[2023-10-23 13:39] LABS: Slide Review Acceptable Review (Acceptable)
[2023-10-23 13:46] LABS: NT Pro B Type NatriureticPept* 16400 pg/mL
--- NOTE | 2023-10-23 14:20 | PM.IMHP1 ---
Hospitalist- H&P: HPI History of Present Illness Date Seen: 10/23/23 Chief complaint: weakness Narrative: Rossy Villa is a 78 year old male who presented to the ER today for anemia, noted on lab work yesterday. He was found to have a Hgb of 7.1 (has been between 8.4-9.9 over the past 8 weeks per [facility] chart review). Patient has no concerns of lightheadedness, dizziness, or chest pain. No abdominal pain, but notes that he had no appetite this morning. He tried to eat eggs and oatmeal, but then vomited once. He noted some red spots that looked like cherries in his vomit. He hasn't had any stool changes that he's aware of. ER Course and Findings: - Hgb 7.2, MCV 113 - Cr 2.1 (baseline 1.2-1.3) - 2U PRBCs ordered - IV PPI given - EKG baseline (sinus bradycardia, history of this upon chart review) Upon arrival to the floor, Rossy has no concerns for hospitalist team. He is amenable to blood transfusion and EGD. Review of Systems Status of ROS: Reports: 10 or more systems reviewed and unremarkable except as noted in History and below [facility] Medical History (Updated 10/23/23 @ 15:15 by Gin Diamond MD) Polycythemia vera ?D45 - Polycythemia vera (ICD-10) Type 2 diabetes mellitus with hyperglycemia ?E11.65 - Type 2 diabetes mellitus with hyperglycemia (ICD-10) Health care directive on file ?Z78.9 - Other specified health status (ICD-10) Severe chronic obstructive pulmonary disease ?J44.9 - Chronic obstructive pulmonary disease, unspecified (ICD-10) Mild cognitive impairment ?G31.84 - Mild cognitive impairment of uncertain or unknown etiology (ICD-10) History of poliomyelitis ?Z86.12 - Personal history of poliomyelitis (ICD-10) On home oxygen therapy ?Z99.81 - Dependence on supplemental oxygen (ICD-10) Thrombocythemia ?D75.839 - Thrombocytosis, unspecified (ICD-10) Chronic kidney disease ?N18.9 - Chronic kidney disease, unspecified (ICD-10) Obstructive sleep apnea ?G47.33 - Obstructive sleep apnea (adult) (pediatric) (ICD-10) Type 2 diabetes mellitus ?E11.9 - Type 2 diabetes mellitus without complications (ICD-10) Hypertension ?I10 - Essential (primary) hypertension (ICD-10) Surgical History History of open reduction and internal fixation (ORIF) procedure (08/14/22) ?Z98.890 - Other specified postprocedural states (ICD-10) History of cataract surgery ?Z98.49 - Cataract extraction status, unspecified eye (ICD-10) H/O foot surgery ?Z98.890 - Other specified postprocedural states (ICD-10) Family History Father Diabetes Mother Breast cancer Social History (Updated 10/23/23 @ 14:35 by Gin Diamond MD) Narrative: Resident of our [facility]. Former smoker, no ETOH. Requests Full Code status on 10/23/23. Indicates that his brother Boo and sister Joyce should be making healthcare decisions. What is your current living situation?: I presently have a place to live Problems where you live: no known problems Problems where you live details: none In the past 12 months, utilities in danger of being shut off: no In past 12 months, lack of transportation kept you from medical appts, meetings, work, or getting things needed for daily living: no In the past 12 mos, have been you worried that your food would run out before you had money to buy more?: never true In the past 12 mos, the food you bought just didn't last and you didn't have money to buy more?: never true Highest level of school completed/degree received: high school graduate Smoking Status: Former smoker What tobacco products do you use: cigars and pipe Do you use any of these nicotine containing products: None Second hand tobacco smoke exposure: No How often do you have a drink containing alcohol: never How often do you have six or more drinks on one occasion: Never AUDIT-C Alcohol total score: 0 Non-prescribed substance use: denies use Caffeine: Yes How often does anyone, including family, friends and others, physically hurt you: never How often does anyone, including family, friends and others, insult or talk down to you: never How often does anyone, including family, friends and others, threaten you with harm: never How often does anyone, including family, friends and others, scream or curse at you: never service: No Meds Home Medications and Allergies Home Medications Medication Instructions Recorded Confirmed Type aspirin 81 mg tablet,delayed 81 mg PO DAILY 08/10/22 10/23/23 History release cetirizine 10 mg tablet 10 mg PO DAILY 08/10/22 10/23/23 History montelukast 10 mg tablet 10 mg PO HS 08/10/22 10/23/23 History pravastatin 80 mg tablet 80 mg PO HS 08/10/22 10/23/23 History acetaminophen 500 mg tablet 500 mg PO Q6H PRN 08/18/22 10/23/23 History fluticasone 500 mcg-salmeterol 50 1 inh inhalation BID 08/18/22 10/23/23 History mcg/dose blistr powdr for inhalation (Advair Diskus) clobetasol 0.05 % topical ointment 1 applic topical BID 10/23/23 10/23/23 History emollient (Vanicream topical) 1 applic topical DAILY 10/23/23 10/23/23 History guaifenesin 600 mg tablet, 600 mg PO BID 10/23/23 10/23/23 History extended release 12 hr (Mucinex) insulin detemir U-100 100 unit/mL 8 - 18 unit subcut BID 10/23/23 10/23/23 History (3 mL) subcutaneous pen insulin lispro 100 unit/mL 5 - 10 unit subcut TIDWM 10/23/23 10/23/23 History subcutaneous pen ketoconazole 2 % topical cream 1 applic topical BID 10/23/23 10/23/23 History nystatin 100,000 unit/gram topical 1 applic topical BID PRN 10/23/23 10/23/23 History powder sennosides 8.6 mg tablet (Senna 8.6 mg PO BID 10/23/23 10/23/23 History Lax) tiotropium bromide 18 mcg capsule 1 cap inhalation DAILY 10/23/23 10/23/23 History with inhalation device (Spiriva with HandiHaler) triamcinolone acetonide 0.1 % 1 applic topical BID 10/23/23 10/23/23 History topical cream Allergies Allergy/AdvReac Type Severity Reaction Status Date / Time No Known Drug Allergies Allergy Verified 10/23/23 12:24 Exam Narrative: Exam Narrative: GEN: Sitting comfortably in bed, apperas nontoxic, no tachypnea HEENT: EOMIs bilaterally, no scleral icterus, + conjunctival pallor CV: Sinus bradycardia, soft systolic murmur without concerning features or radiation R: LCTA bilaterally without concerning wheezing, air movement adequate Ab: Soft, nontender, bowel sounds throughout. Tolerates palpation well Ext: Bilateral heel wounds, healed from previous. L great toe wound appears improved from previous photos from wound clinic Skin: No concerning skin lesions or rashes on exposed skin Neuro: No focal deficits on limited exam Const: Vital Signs, click to edit/add: Vital Signs - 24 hr 10/23/23 12:17 10/23/23 12:19 10/23/23 12:41 Temperature 97.6 F Pulse Rate 45 L Pulse Rate [Pulse Oximeter] 46 L Respiratory Rate 18 Blood Pressure Blood Pressure [Ri ght Upper Arm] 105/43 L Pulse Oximetry 96 94 94 [facility] 10/23/23 12:45 10/23/23 13:00 10/23/23 13:03 Temperature Pulse Rate 43 L 44 L 44 L Pulse Rate [Pulse Oximeter] Respiratory Rate Blood Pressure 119/47 L Blood Pressure [Ri ght Upper Arm] Pulse Oximetry 94 94 94 Oxygen Delivery Me thod 10/23/23 13:15 10/23/23 13:30 Temperature Pulse Rate 43 L 43 L Pulse Rate [Pulse Oximeter] Respiratory Rate Blood Pressure Blood Pressure [Ri ght Upper Arm] Pulse Oximetry 94 96 Oxygen Delivery [facility] Hospitalist - H&P: Result Labs Labs: Short CBC 10/23/23 Range/Units 12:43 WBC 9.69 (4.50-11.00) K/uL Hgb 7.2 L* (13.5-17.5) gm/dL Hct 22.5 L (37.0-53.0) % Plt Count 349 (140-440) K/uL BMP 10/23/23 12:43 Sodium 139 Potassium 4.7 Chloride 104 Carbon Dioxide 23 BUN 83 H Creatinine 2.1 H Glucose 204 H Calcium 9.2 Cardiac Enzymes 10/23/23 Range/Units 12:43 Troponin I 0.02 (0.01-0.04) ng/mL Liver Function 10/23/23 Range/Units 12:43 Total Bilirubin 0.3 (0.1-1.5) mg/dL Direct Bilirubin 0.0 (0.0-0.5) mg/dL AST 26 (12-35) U/L ALT 19 (4-50) U/L Alkaline Phosphatase 117 (40-150) U/L Albumin 3.9 (3.3-5.0) g/dL Assessment and Plan Assessment and plan (1) GI bleed: Problem comment: - noted streaks of blood in emesis on 10/22 am, anemia, elevated BUN - IV PPI initiated, EGD ordered - clear liquids tonight, NPO at midnight for procedure Status: Acute (2) Anemia: Problem comment: - Hgb 7.1 on 10/23/23 (has been between 8.4 and 9.9 over the past 2 months, per [facility] chart review) - patient amenable to blood transfusion Status: Acute (3) SEEMA (acute kidney injury): Problem comment: - on top of chronic kidney disease (Cr 2.1 on 10/22, baseline 1.2-1.3) - likely prerenal given concern for GI Bleed, episode of vomiting, decreased po intake - IVFs, hold nephrotoxins, follow closely Status: Acute (4) Type 2 diabetes mellitus: Problem comment: - last A1C 9.5 (September 2023) - accuchecks, continue long-acting insulin, hold sliding scale while NPO Status: Chronic Plan - per above - SCDs for ppx (pharmacological prophylaxis contraindicated given bleed) - sister Joyce updated by phone, questions answered
--- NOTE | 2023-10-23 15:15 | PC.NURSE ---
[End of Shift Nursing Note]: Patient arrived to unit at approximately 1400 from ED. Patient comes in with complaints of weakness. Patient found to have low Hgb. Patient had bloody emesis prior to admission, but has not had any nausea/vomiting/diarrhea since admission. Patient's LBM was this morning which he states looked normal. Patient resides at [facility] and is A&OX3. Patient states he gets help with bathing but does all other cares independently. Patient reports the staff at [facility] administers all medications. Patient has not gotten out of bed yet since admission but states he ambulates with walker. Patient has chronic wound to L) great toe. Wound closed; Mepilex applied. Bilateral heels have closed sores. Mepilex applied to both heels. Sacral Mepilex also applied due to pink skin on coccyx. Patient has sinus bradycardia per baseline. Patient to receive 2 units of PRBCs today and will have endoscopy tomorrow. Patient on clear liquid diet. First unit of PRBCs started and patient tolerating transfusion well at this time. Patient stable and asymptomatic at shift change. Will continue to implement ongoing plan of care.
--- NOTE | 2023-10-23 15:59 | RESP.RT ---
Patient seen today by RT. Patient has Hx of oxygen dependance at home, AARON with CPAP, and respiratory medications. On assessment patient is resting comfortable in bed. No respiratory distress noted. Patient on room air SpO2 95%. Lung sounds clear and diminished. Patient states he no longer wears oxygen and does not use a PAP device at home. He claims to take 2 puffers at home twice a day
[2023-10-23] MEDS: FUROSEMIDE 10 MG/ML inj 20 MG IVP (18:30)
[2023-10-23] MEDS: SODIUM CHLORIDE 0.9 % (FLUSH) 10 ML SYRINGE 5 ML IVF (23:15)
[2023-10-23] MEDS: 0.9 % SODIUM CHLORIDE 1000 ml 1,000 ML 125 ML IV (23:35)
--- NOTE | 2023-10-23 23:42 | PC.NURSE ---
End of shift [id number] - RN took over pt care at approximately 1730. Pt alert, oriented, cooperative, and talkative. Tolerating RA, clear liquid diet. Denies pain, SOB, nausea, dizziness. Pt tolerated blood product during shift, no adverse reaction noted. Observed to sleep during shift, appears to be resting comfortably at end of shift.
[2023-10-24] VITALS (10 sets, daily range): BP systolic 120–136; BP diastolic 50–61; PULSE 42–66; RESP 16–20; TEMP 36.6–37.3; O2SAT 91–97; BMI 24.3
--- NOTE | 2023-10-24 05:24 | PC.NURSE ---
[id number] Pt completed 2 unit packed red blood cell transfusion, tolerated well, NPO since midnight. using urinal at bedside. emesis x1 at beginning of shift, no blood noted, 50 cc total output, green bile no more N/V for remainder of night.
--- NOTE | 2023-10-24 07:21 | CT_ITS ---
Patient: ANKIT GUTIERREZ Facility:?[facility] Patient ID:?[id number] Site Patient ID:?[id number]. Site :?[id number] Study:?CT-Abdomen/Pelvis 88CC ISOVUE 370-10/24/2023 8:35:34 AM Ordering Physician:?DR. SHIELDS Final Report: INDICATION: Bilious emesis COMPARISON: February 05, 2012 TECHNIQUE: CT examination of the abdomen and pelvis was performed following the uneventful intravenous administration of 88 cc of Isovue 370. Thin section axial images were obtained from the lung bases through the pubic symphysis. Oral contrast was not administered. Please note that all CT scans at this facility use dose modulation, iterative reconstruction, and/or weight-based dosing when appropriate to reduce radiation dose to as low as reasonably achievable. FINDINGS: LUNG BASES: Abnormal lung bases. There are areas of fibrosis, atelectasis and fibrosis. There also nodules identified including a focal masslike area of consolidation measuring 2.4 centimeters. Neoplasia is possible. Consider a full formal chest CT for further evaluation. LIVER/BILIARY SYSTEM:Hepatic steatosis. No intra or extrahepatic biliary ductal dilation.No focal hepatic mass. There are numerous stones within the gallbladder. Possible gallbladder wall thickening though this may be due to the contracted state of the gallbladder. Recommend sonography for further evaluation. No extrahepatic biliary ductal dilation. ADRENALS: Normal KIDNEYS, URETERS and BLADDER:The kidneys appear normal. No visible mass, calculus or hydronephrosis. The ureters and bladder as visualized appear normal. SPLEEN:Normal appearance. PANCREAS: Appears normal. RETROPERITONEUM and MESENTERY: There is no mass, adenopathy or aortic aneurysm. Atherosclerotic vascular calcification GASTROINTESTINAL SYSTEM: There is no evidence of small-bowel obstruction. There is a small hiatal hernia. There is a possible area of narrowing in the left aspect of the transverse colon. This is best seen on axial images number 44 through 49. There is also some dilation of the colon proximal to this. This could be a stricture, area of spasm or mass and should be further evaluated at a clinically appropriate time PELVIS: Abnormally enlarged and heterogeneous nodular prostate. Again, follow-up evaluation recommended at a clinically appropriate time the bladder is mildly distended.. OSSEOUS STRUCTURES and ABDOMINAL WALL: No destructive process of bone.No significant abdominal wall defect. OTHER: No free fluid or free air. IMPRESSION: 1. Abnormal lung bases including nodules. There is a 2.4 centimeter nodule or nodular area of consolidation at the right lung base. Neoplasia is possible and recommend a full formal chest CT for further evaluation. 2. Cholelithiasis with possible wall thickening. Correlation with sonography is recommended to exclude acute cholecystitis. 3. Focal area of narrowing in the left lateral aspect of the transverse colon as described. Follow up evaluation in the at a clinically appropriate time. 4. Enlarged, heterogeneous and nodular prostate gland. 5. Other nonacute appearing findings as above Please note that all CT scans at this facility use dose modulation, iterative reconstruction, and/or weight-based dosing when appropriate to reduce radiation dose to as low as reasonably achievable. Dictated by Abilio Grady MD @ 10/24/2023 9:17:25 AM Signed by:?Abilio Grady MD @10/24/2023 9:17:25 AM (Electronic Signature)
[2023-10-24 07:27] LABS: Basophils Percent Auto 0.8 % (0.0-3.0); Eosinophils Percent Auto 0.1 % (0.0-7.0); Hematocrit 28.8 % (37.0-53.0); Hemoglobin* 9.4 gm/dL (13.5-17.5); Immature Granulocytes Pct Auto 20.1 %; Lymphocytes Percent Auto 20.2 % (20-44); Mean Corpuscular HGB Conc 33 gm/dL (32-36); Mean Corpuscular Hemoglobin 33 pg (26-34); Mean Corpuscular Volume 100 fL (80-100); Monocytes Percent Auto 13.8 % (0.0-11.0); Platelet Count* 337 K/uL (140-440); RDW Coefficient of Variation % 24.7 % (11.5-15.5); Red Blood Count 2.89 m/uL (4.30-5.90); White Blood Count* 15.41 K/uL (4.50-11.00)
[2023-10-24] MEDS: 0.9 % SODIUM CHLORIDE 1000 ml 1,000 ML 125 ML IV (07:34)
[2023-10-24 07:38] LABS: Albumin* 3.8 g/dL (3.3-5.0); Chloride* 110 mmol/L (96-114); Potassium* 4.6 mmol/L (3.6-5.1); Sodium* 140 mmol/L (135-149)
[2023-10-24 07:41] LABS: Alanine Aminotransferase* 18 U/L (4-50); Alkaline Phosphatase* 121 U/L (40-150); Anion Gap 8 mEq/L (7-15); Aspartate Amino Transferase* 26 U/L (12-35); Bilirubin Total* 0.8 mg/dL (0.1-1.5); Blood Urea Nitrogen* 74 mg/dL (7-30); Carbon Dioxide* 22 mmol/L (20-32); Creatinine* 1.7 mg/dL (0.5-1.5); Est. Creatinine Clearance* 38.04; Estimated Glomerular Filt Rate 40 ml/min; Glucose* 294 mg/dL (60-115); Total Protein* 7.7 g/dL (6.0-8.3)
[2023-10-24 07:42] LABS: Calcium* 8.8 mg/dL (8.4-10.6)
[2023-10-24 08:00] LABS: Slide Review Reflex Yes
[2023-10-24 08:01] LABS: Slide Review Acceptable Review (Acceptable)
--- NOTE | 2023-10-24 08:51 | PM.IMPN1 ---
Progress Note: A&P Assessment and plan (1) Abnormal gallbladder ultrasound: Problem details: - General Surgery following, asymptomatic - Zosyn initiated 10/24/23 - holding ASA Status: Acute (2) GI bleed: Problem details: - noted streaks of blood in emesis on 10/22 am, anemia, elevated BUN - IV PPI initiated on 10/22, EGD ordered - EGD reassuring without evidence of ulcer Status: Acute (3) Anemia: Problem details: - Hgb 7.1 on 10/23/23 (has been between 8.4 and 9.9 over the past 2 months, per [facility] chart review) - s/p 2U PRBCs on 10/22, improvement of Hgb to 9.4 Status: Acute (4) SEEMA (acute kidney injury): Problem details: - on top of chronic kidney disease (Cr 2.1 on 10/22, baseline 1.2-1.3) - likely prerenal given concern for GI Bleed, episode of vomiting, decreased po intake - IVFs, hold nephrotoxins, follow closely - improved on 10/24/23 Status: Acute (5) Type 2 diabetes mellitus: Problem details: - last A1C 9.5 (September 2023) - accuchecks, continue long-acting insulin, hold sliding scale while NPO Status: Chronic Plan - per above Subjective Date Seen: 10/24/23 Interval history: Rossy was admitted to the hospital on 10/23 for SEEMA and concern for GI bleed given acute on chronic anemia + an episode of hemoptysis on the morning of 10/22. He received 2U of PRBCs yesterday and Hgb up to 9.4 today. Creatinine has improved from 2.1 --> 1.7 WBC notably increased to 15. Afebrile with normal BP, HR remains sinus bradycardia. Since admission, he has tolerated NPO status and remains pain free. This morning he started vomiting (bilious, no hemoptysis). Denies nausea or abdominal pain. CT scan revealed possible cholecystitis, also noted on ultrasound. No acute findings or bleeding on EGD. Dr. Gonzalez of General Surgery has been consulted. Exam Narrative: Exam Narrative: GEN: Rossy is sitting up in bed this morning, appears nontoxic, just finished vomiting (bag examined, bilious) HEENT: EOMIs bilaterally, no scleral icterus, + conjunctival pallor CV: Sinus bradycardia, no concerning wheezing R: LCTA bilaterally, no wheezing Ab: Soft, tolerates palpation, + bowel sounds Ext: Wounds of BLE not formally examined today Skin: No concerning skin lesions or rashes on exposed skin Neuro: No focal deficits on limited exam Psych: Appropriate Const: Vital Signs, click to edit/add: Vital Signs - 24 hr 10/23/23 12:17 10/23/23 12:19 10/23/23 12:41 Temperature 97.6 F Pulse Rate 45 L Pulse Rate [Left R adial] Pulse Rate [Pulse Oximeter] 46 L Respiratory Rate 18 Blood Pressure Blood Pressure [Le ft Arm] Blood Pressure [Ri ght Upper Arm] 105/43 L Pulse Oximetry 96 94 94 [facility] 10/23/23 12:45 10/23/23 13:00 10/23/23 13:03 Temperature Pulse Rate 43 L 44 L 44 L Pulse Rate [Left R adial] Pulse Rate [Pulse Oximeter] Respiratory Rate Blood Pressure 119/47 L Blood Pressure [Le ft Arm] Blood Pressure [Ri ght Upper Arm] Pulse Oximetry 94 94 94 Oxygen Delivery Nc thod 10/23/23 13:15 10/23/23 13:30 10/23/23 14:28 Temperature 97.2 F L Pulse Rate 43 L 43 L Pulse Rate [Left R adial] Pulse Rate [Pulse Oximeter] Respiratory Rate 20 Blood Pressure Blood Pressure [Le ft Arm] Blood Pressure [Ri ght Upper Arm] Pulse Oximetry 94 96 95 [facility] 10/23/23 14:28 10/23/23 14:29 10/23/23 14:50 Temperature 97.3 F L Pulse Rate 46 L 43 L Pulse Rate [Left R adial] Pulse Rate [Pulse Oximeter] Respiratory Rate 18 18 Blood Pressure 113/46 L Blood Pressure [Le ft Arm] Blood Pressure [Ri ght Upper Arm] Pulse Oximetry 96 96 [facility] 10/23/23 15:00 10/23/23 15:05 10/23/23 15:50 Temperature 97.2 F L 97.8 F Pulse Rate 41 L 42 L Pulse Rate [Left R adial] Pulse Rate [Pulse Oximeter] Respiratory Rate 18 16 Blood Pressure 117/47 L 113/58 L Blood Pressure [Le ft Arm] Blood Pressure [Ri ght Upper Arm] Pulse Oximetry 96 97 Oxygen Delivery Me thod Room Air 10/23/23 15:50 10/23/23 15:50 10/23/23 19:50 Temperature 97.8 F Pulse Rate 41 L Pulse Rate [Left R adial] 42 L Pulse Rate [Pulse Oximeter] Respiratory Rate 16 16 Blood Pressure Blood Pressure [Le ft Arm] 113/58 L Blood Pressure [Ri ght Upper Arm] Pulse Oximetry 97 97 Oxygen Delivery Me thod Room Air Room Air 10/23/23 20:41 10/23/23 20:52 10/23/23 21:01 Temperature 98.4 F 97.4 F L 98.0 F Pulse Rate 41 L 42 L Pulse Rate [Left R adial] 41 L Pulse Rate [Pulse Oximeter] Respiratory Rate 20 20 16 Blood Pressure 120/56 L 115/61 Blood Pressure [Le ft Arm] 129/62 Blood Pressure [Ri ght Upper Arm] Pulse Oximetry 95 96 93 Oxygen Delivery Me thod Room Air 10/23/23 21:35 10/23/23 23:00 10/23/23 23:00 Temperature 97.8 F Pulse Rate 40 L Pulse Rate [Left R adial] 41 L Pulse Rate [Pulse Oximeter] Respiratory Rate 20 20 Blood Pressure 110/47 L Blood Pressure [Le ft Arm] Blood Pressure [Ri ght Upper Arm] Pulse Oximetry 94 93 Oxygen Delivery Me thod Room Air 10/23/23 23:00 10/23/23 23:31 10/24/23 00:00 Temperature 98.1 F 98.1 F 99.1 F Pulse Rate 40 L 45 L Pulse Rate [Left R adial] 41 L Pulse Rate [Pulse Oximeter] Respiratory Rate 20 20 20 Blood Pressure 134/54 L 130/50 L Blood Pressure [Le ft Arm] 134/54 L Blood Pressure [Ri ght Upper Arm] Pulse Oximetry 93 93 95 Oxygen Delivery Me thod Room Air 10/24/23 01:47 10/24/23 02:17 10/24/23 07:39 Temperature 99.1 F 98.7 F Pulse Rate 45 L Pulse Rate [Left R adial] 45 L 42 L Pulse Rate [Pulse Oximeter] Respiratory Rate 20 18 Blood Pressure Blood Pressure [Le ft Arm] 136/56 L 124/61 Blood Pressure [Ri ght Upper Arm] Pulse Oximetry 95 91 Oxygen Delivery Me thod Room Air Room Air Labs Labs: Laboratory Results - last 24 hr 10/23/23 10/23/23 10/24/23 12:20 12:43 07:16 WBC 9.69 15.41 H RBC 2.00 L 2.89 L Hgb 7.2 L* 9.4 L Hct 22.5 L 28.8 L MCV 113 H 100 MCH 36 H 33 MCHC 32 33 RDW Coeff of Khushboo 14.4 24.7 H Plt Count 349 337 Neut % (Auto) 29.5 L 45.0 Lymph % (Auto) 40.0 20.2 [place] % (Auto) 8.7 13.8 H Eos % (Auto) 0.2 0.1 Baso % (Auto) 0.3 0.8 Neut # (Auto) 2.90 6.90 Lymph # (Auto) 3.88 H 3.10 H [place] # (Auto) 0.80 2.10 H Eos # (Auto) 0.02 0.00 Baso # (Auto) 0.03 0.10 Abs Immat Gran (auto) 2.06 H 3.10 H Imm/Tot Granulo (auto) 21.3 20.1 Diff Slide Review Acceptable Review Acceptable Review INR 1.11 H APTT 37 H Sodium 139 140 Potassium 4.7 4.6 Chloride 104 110 Carbon Dioxide 23 22 Anion Gap 12 8 BUN 83 H 74 H Creatinine 2.1 H 1.7 H Estimated Creat Clear 30.79 38.04 Estimated GFR 31 40 Glucose 204 H 294 H Calcium 9.2 8.8 Total Bilirubin 0.3 0.8 Direct Bilirubin 0.0 AST 26 26 ALT 19 18 Alkaline Phosphatase 117 121 Troponin I 0.02 NT-Pro-B Natriuret Pep 76067 Total Protein 7.8 7.7 Albumin 3.9 3.8 SARS-CoV-2 (PCR) Negative SARS-CoV-2 Influenza Type A (PCR) Negative PCR FLU A Influenza Type B (PCR) Negative PCR FLU B RSV (PCR) Negative PCR RSV Blood Type O Positive Antibody Screen NEGATIVE Crossmatch (AHG) See Detail
--- NOTE | 2023-10-24 09:25 | W.ANESCHARGE ---
Anesthesia Charges Start Date/Time Anesthesia Start Date: 10/24/23 Anesthesia Start Time: 10:15 Stop Date/Time Anesthesia Stop Date: 10/24/23 Anesthesia Stop Time: 10:35 Summary Emergency: MDA Extremes of Age - Over 70 or under 1: MDA
--- NOTE | 2023-10-24 10:37 | PC.SOCIAL ---
Addendum entered by IWONA Macedo 10/24/23 12:13: Pt has a [facility] Financial Engineer, Anna Marie Atkinson, who can be reached at [phone]. Phone call to Anna Marie to provide an update on discharge plans. There was no answer, left a detailed message regarding discharge plans. Original Note: Discharge planning- Provided medical update to Zoie Gaona at [facility]. Confirmed pt is on bed hold and can return when stable. Per MD, pt may return as early as tomorrow. [facility] is aware of this potential plan. Will follow up as needed.
--- NOTE | 2023-10-24 10:41 | P.ANES_ITS ---
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
--- NOTE | 2023-10-24 10:41 | W.ANESCHARGE ---
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
--- NOTE | 2023-10-24 11:30 | US_ITS ---
Patient: ANKIT GUTIERREZ Facility:?[facility] Patient ID:?[id number] Site Patient ID:?[id number]. Site :?[id number] Study:?US-Abdomen ABD LMT GB/CBD-10/24/2023 12:27:34 PM Ordering Physician:?DONALD CYR M.D. Final Report: Indication: Abnormal gallbladder on CT Technique: Multiple transverse and longitudinal sonographic grayscale images of the right upper quadrant of the abdomen were obtained, supplemented with color doppler imaging. Comparison: Same day CT. Findings: CBD: 2.3 cm. Gallbladder: Negative sonographic Saba sign. Thickened wall measuring 0.4 centimeter. Debris. Impression: Thickened gallbladder wall and gallbladder debris without evidence of sonographic Saba sign. Findings are equivocal for acute cholecystitis, though there is no gallbladder dilation. Consider HIDA scan if there is persistent concern for acute cholecystitis. Dictated by Tj Ocampo MD @ 10/24/2023 12:43:08 PM Signed by:?Tj Ocampo MD @10/24/2023 12:43:08 PM (Electronic Signature)
[2023-10-24] MEDS: PANTOPRAZOLE SODIUM 40 MG INJ IVP (12:33)
[2023-10-24] MEDS: SODIUM CHLORIDE 0.9 % (FLUSH) 10 ML SYRINGE 5 ML IVF ×2 (12:35→20:21)
--- NOTE | 2023-10-24 13:32 | PM.GSCN ---
History of Present Illness Consult details Date Seen: 10/24/23 Consult date: 10/24/23 Narrative: The patient is an 78-year-old male who presented to [facility] after he was found at his living facility to have a hemoglobin of 7.2. The report that he had an emesis with flecks of blood in it. He was admitted to the hospital and given 2 units of blood. Hemoglobin this morning was 9.4. Plan was for upper endoscopy. He threw up again overnight and a CT scan was obtained this morning. This showed a contracted gallbladder with a thickened wall. He underwent endoscopy which did not show source for a GI bleed. Ultrasound was obtained which again showed a gallbladder wall which was thickened and gallstones. I was asked to evaluate the patient for possible cholecystitis. Ankit denies abdominal pain. He states that he would like to eat. He states that he has had vomiting several times recently, but does not endorse a poor appetite. He is not sure what incites the vomiting. No change in bowel habits per his report. [facility] Medical History (Updated 10/24/23 @ 15:30 by Pippa Gonzalez MD) Polycythemia vera ?D45 - Polycythemia vera (ICD-10) Type 2 diabetes mellitus with hyperglycemia ?E11.65 - Type 2 diabetes mellitus with hyperglycemia (ICD-10) Health care directive on file ?Z78.9 - Other specified health status (ICD-10) Severe chronic obstructive pulmonary disease ?J44.9 - Chronic obstructive pulmonary disease, unspecified (ICD-10) Mild cognitive impairment ?G31.84 - Mild cognitive impairment of uncertain or unknown etiology (ICD-10) History of poliomyelitis ?Z86.12 - Personal history of poliomyelitis (ICD-10) On home oxygen therapy ?Z99.81 - Dependence on supplemental oxygen (ICD-10) Thrombocythemia ?D75.839 - Thrombocytosis, unspecified (ICD-10) Chronic kidney disease ?N18.9 - Chronic kidney disease, unspecified (ICD-10) Obstructive sleep apnea ?G47.33 - Obstructive sleep apnea (adult) (pediatric) (ICD-10) Type 2 diabetes mellitus ?E11.9 - Type 2 diabetes mellitus without complications (ICD-10) Hypertension ?I10 - Essential (primary) hypertension (ICD-10) Surgical History History of open reduction and internal fixation (ORIF) procedure (08/14/22) ?Z98.890 - Other specified postprocedural states (ICD-10) History of cataract surgery ?Z98.49 - Cataract extraction status, unspecified eye (ICD-10) H/O foot surgery ?Z98.890 - Other specified postprocedural states (ICD-10) Family History Father Diabetes Mother Breast cancer Social History (Updated 10/23/23 @ 14:35 by Gin Cyr MD) Narrative: Resident of our [facility]. Former smoker, no ETOH. Requests Full Code status on 10/23/23. Indicates that his brother Boo and sister Joyce should be making healthcare decisions. What is your current living situation?: I presently have a place to live Problems where you live: no known problems Problems where you live details: none In the past 12 months, utilities in danger of being shut off: no In past 12 months, lack of transportation kept you from medical appts, meetings, work, or getting things needed for daily living: no In the past 12 mos, have been you worried that your food would run out before you had money to buy more?: never true In the past 12 mos, the food you bought just didn't last and you didn't have money to buy more?: never true Highest level of school completed/degree received: high school graduate Smoking Status: Former smoker What tobacco products do you use: cigars and pipe Do you use any of these nicotine containing products: None Second hand tobacco smoke exposure: No How often do you have a drink containing alcohol: never How often do you have six or more drinks on one occasion: Never AUDIT-C Alcohol total score: 0 Non-prescribed substance use: denies use Caffeine: Yes How often does anyone, including family, friends and others, physically hurt you: never How often does anyone, including family, friends and others, insult or talk down to you: never How often does anyone, including family, friends and others, threaten you with harm: never How often does anyone, including family, friends and others, scream or curse at you: never service: No Meds Home Medications and Allergies Home Medications Medication Instructions Recorded Confirmed Type aspirin 81 mg tablet,delayed 81 mg PO DAILY 08/10/22 10/23/23 History release cetirizine 10 mg tablet 10 mg PO DAILY 08/10/22 10/23/23 History montelukast 10 mg tablet 10 mg PO HS 08/10/22 10/23/23 History pravastatin 80 mg tablet 80 mg PO HS 08/10/22 10/23/23 History acetaminophen 500 mg tablet 500 mg PO Q6H PRN 08/18/22 10/23/23 History fluticasone 500 mcg-salmeterol 50 1 inh inhalation BID 08/18/22 10/23/23 History mcg/dose blistr powdr for inhalation (Advair Diskus) clobetasol 0.05 % topical ointment 1 applic topical BID 10/23/23 10/23/23 History emollient (Vanicream topical) 1 applic topical DAILY 10/23/23 10/23/23 History guaifenesin 600 mg tablet, 600 mg PO BID 10/23/23 10/23/23 History extended release 12 hr (Mucinex) insulin detemir U-100 100 unit/mL 8 - 18 unit subcut BID 10/23/23 10/23/23 History (3 mL) subcutaneous pen insulin lispro 100 unit/mL 5 - 10 unit subcut TIDWM 10/23/23 10/23/23 History subcutaneous pen ketoconazole 2 % topical cream 1 applic topical BID 10/23/23 10/23/23 History nystatin 100,000 unit/gram topical 1 applic topical BID PRN 10/23/23 10/23/23 History powder sennosides 8.6 mg tablet (Senna 8.6 mg PO BID 10/23/23 10/23/23 History Lax) tiotropium bromide 18 mcg capsule 1 cap inhalation DAILY 10/23/23 10/23/23 History with inhalation device (Spiriva with HandiHaler) triamcinolone acetonide 0.1 % 1 applic topical BID 10/23/23 10/23/23 History topical cream Allergies Allergy/AdvReac Type Severity Reaction Status Date / Time No Known Drug Allergies Allergy Verified 10/24/23 08:32 Exam Narrative: Exam Narrative: General: No acute distress Respiratory: Patient is breathing comfortably on nasal cannula CV: Regular rate Abdomen: No scars. Abdomen is nontender, specifically in the right upper quadrant and specifically to deep palpation. There is a negative Saba sign. Const: Vital Signs, click to edit/add: Vital Signs - 24 hr 10/23/23 14:28 10/23/23 14:28 10/23/23 14:29 Temperature 97.2 F L Pulse Rate 46 L Pulse Rate [Left R adial] Respiratory Rate 20 18 Blood Pressure Blood Pressure [Le ft Arm] Pulse Oximetry 95 96 Oxygen Delivery Me thod Room Air Room Air Oxygen Flow Rate 10/23/23 14:50 10/23/23 15:00 10/23/23 15:05 Temperature 97.3 F L 97.2 F L Pulse Rate 43 L 41 L Pulse Rate [Left R adial] Respiratory Rate 18 18 Blood Pressure 113/46 L 117/47 L Blood Pressure [Le ft Arm] Pulse Oximetry 96 96 Oxygen Delivery Me thod Room Air Oxygen Flow Rate 10/23/23 15:50 10/23/23 15:50 10/23/23 15:50 Temperature 97.8 F 97.8 F Pulse Rate 42 L Pulse Rate [Left R adial] 42 L Respiratory Rate 16 16 16 Blood Pressure 113/58 L Blood Pressure [Le ft Arm] 113/58 L Pulse Oximetry 97 97 97 Oxygen Delivery Me thod Room Air Room Air Oxygen Flow Rate 10/23/23 19:50 10/23/23 20:41 10/23/23 20:52 Temperature 98.4 F 97.4 F L Pulse Rate 41 L 41 L Pulse Rate [Left R adial] 41 L Respiratory Rate 20 20 Blood Pressure 120/56 L Blood Pressure [Le ft Arm] 129/62 Pulse Oximetry 95 96 Oxygen Delivery Me thod Room Air Oxygen Flow Rate 10/23/23 21:01 10/23/23 21:35 10/23/23 23:00 Temperature 98.0 F 97.8 F Pulse Rate 42 L 40 L Pulse Rate [Left R adial] 41 L Respiratory Rate 16 20 Blood Pressure 115/61 110/47 L Blood Pressure [Le ft Arm] Pulse Oximetry 93 94 Oxygen Delivery Me thod Oxygen Flow Rate 10/23/23 23:00 10/23/23 23:00 10/23/23 23:31 Temperature 98.1 F 98.1 F Pulse Rate 40 L Pulse Rate [Left R adial] 41 L Respiratory Rate 20 20 20 Blood Pressure 134/54 L Blood Pressure [Le ft Arm] 134/54 L Pulse Oximetry 93 93 93 Oxygen Delivery Me thod Room Air Room Air Oxygen Flow Rate 10/24/23 00:00 10/24/23 01:47 10/24/23 02:17 Temperature 99.1 F 99.1 F Pulse Rate 45 L 45 L Pulse Rate [Left R adial] 45 L Respiratory Rate 20 20 Blood Pressure 130/50 L Blood Pressure [Le ft Arm] 136/56 L Pulse Oximetry 95 95 Oxygen Delivery Me thod Room Air Oxygen Flow Rate 10/24/23 07:00 10/24/23 07:39 10/24/23 12:32 Temperature 98.7 F 97.8 F Pulse Rate Pulse Rate [Left R adial] 42 L 62 Respiratory Rate 18 16 Blood Pressure Blood Pressure [Le ft Arm] 124/61 129/59 L Pulse Oximetry 97 91 94 Oxygen Delivery Me thod Room Air Room Air Nasal Cannula Oxygen Flow Rate 1 Results Labs Labs: On admission yesterday, white blood cell count was 9.6 Hemoglobin 7.2. Today white blood cell count 15.4 Hemoglobin 9.4 after 2 units Creatinine on admission was 2.1, BUN 83 Today creatinine is 1.7, BUN 74 Glucose has been in the 200s. LFTs within normal limits. Imaging Abdomen CT scan report/results: report reviewed and image reviewed Abdominal ultrasound report/results: report reviewed and image reviewed Additional studies: Patient: ANKIT GUTIERREZ Facility: [facility] Site . Site : 1945 Study: CT-Abdomen/Pelvis 88CC ISOVUE 370-10/24/2023 8:35:34 AM Ordering Physician: DR. SHIELDS Final Report: INDICATION: Bilious emesis COMPARISON: February 05, 2012 TECHNIQUE: CT examination of the abdomen and pelvis was performed following the uneventful intravenous administration of 88 cc of Isovue 370. Thin section axial images were obtained from the lung bases through the pubic symphysis. Oral contrast was not administered. Please note that all CT scans at this facility use dose modulation, iterative reconstruction, and/or weight-based dosing when appropriate to reduce radiation dose to as low as reasonably achievable. FINDINGS: LUNG BASES: Abnormal lung bases. There are areas of fibrosis, atelectasis and fibrosis. There also nodules identified including a focal masslike area of consolidation measuring 2.4 centimeters. Neoplasia is possible. Consider a full formal chest CT for further evaluation. LIVER/BILIARY SYSTEM:Hepatic steatosis. No intra or extrahepatic biliary ductal dilation.No focal hepatic mass. There are numerous stones within the gallbladder. Possible gallbladder wall thickening though this may be due to the contracted state of the gallbladder. Recommend sonography for further evaluation. No extrahepatic biliary ductal dilation. ADRENALS: Normal KIDNEYS, URETERS and BLADDER:The kidneys appear normal. No visible mass, calculus or hydronephrosis. The ureters and bladder as visualized appear normal. SPLEEN:Normal appearance. PANCREAS: Appears normal. RETROPERITONEUM and MESENTERY: There is no mass, adenopathy or aortic aneurysm. Atherosclerotic vascular calcification GASTROINTESTINAL SYSTEM: There is no evidence of small-bowel obstruction. There is a small hiatal hernia. There is a possible area of narrowing in the left aspect of the transverse colon. This is best seen on axial images number 44 through 49. There is also some dilation of the colon proximal to this. This could be a stricture, area of spasm or mass and should be further evaluated at a clinically appropriate time PELVIS: Abnormally enlarged and heterogeneous nodular prostate. Again, follow-up evaluation recommended at a clinically appropriate time the bladder is mildly distended.. OSSEOUS STRUCTURES and ABDOMINAL WALL: No destructive process of bone.No significant abdominal wall defect. OTHER: No free fluid or free air. IMPRESSION: 1. Abnormal lung bases including nodules. There is a 2.4 centimeter nodule or nodular area of consolidation at the right lung base. Neoplasia is possible and recommend a full formal chest CT for further evaluation. 2. Cholelithiasis with possible wall thickening. Correlation with sonography is recommended to exclude acute cholecystitis. 3. Focal area of narrowing in the left lateral aspect of the transverse colon as described. Follow up evaluation in the at a clinically appropriate time. 4. Enlarged, heterogeneous and nodular prostate gland. 5. Other nonacute appearing findings as above Patient: ANKIT GUTIERREZ Facility: [facility] Site . Site : 1945 Study: US-Abdomen ABD LMT GB/CBD-10/24/2023 12:27:34 PM Ordering Physician: GIN CYR M.D. Final Report: Indication: Abnormal gallbladder on CT Technique: Multiple transverse and longitudinal sonographic grayscale images of the right upper quadrant of the abdomen were obtained, supplemented with color doppler imaging. Comparison: Same day CT. Findings: CBD: 2.3 cm. Gallbladder: Negative sonographic Saba sign. Thickened wall measuring 0.4 centimeter. Debris. Progress Note:A&P Assessment and plan (1) Abnormal gallbladder ultrasound: Status: Acute (2) SEEMA (acute kidney injury): Status: Acute (3) Anemia: Status: Acute (4) Cholelithiasis: Status: Acute Plan The patient is an 78-year-old male with acute on chronic anemia of unclear cause, recent vomiting, acute kidney injury and now the findings of gallbladder thickening in the setting of stones. -white blood cell count is up today, however the patient has no abdominal pain. Gallbladder wall is thickened but the gallbladder also appears somewhat contracted on the CT scan. -is difficult to discern whether not his gallbladder is the cause of his elevated white blood cell count. Certainly this would not be related to his acute anemia. -overall, the patient is quite frail appearing and would not be an ideal surgical candidate where he found to have cholecystitis. HIDA scan could be performed to further delineate, however this is not available until next week. -therefore I recommend antibiotics in the event that this is cholecystitis and will follow clinically for now -plan may change if patient develops worsening symptoms. -okay to advance diet to clears.
--- NOTE | 2023-10-24 13:40 | REH.OT ---
Pt. OT evaluation will be postponed until tomorrow d/t EGD procedure today. Pt was unarousable afterward on 3 attempts.
[2023-10-24] MEDS: PIPERACILLIN/TAZOBACTAM 3.375 GM in 0.9 % SODIUM CHLORIDE Mini-bag 100 ML IVPB ×2 (14:54→19:41)
--- NOTE | 2023-10-24 16:40 | PC.NURSE ---
Shift note: pt vss stable. pt afeb. pt up 1/walker to recliner. Pt to CT @ 0820 via WC. Pt to EGD @0900. Pt returned fromEGD @ 1120 via cart. US @1134 at bedside. IV patent. LS dim/clr. pt on 1L pnc O2 to keep sats >90% while asleep. bilat heels with Mepilex covering redness. coccyx mepilex in place as preventative. Rt gr toe with drsg intact. [id number]
[2023-10-24] MEDS: INSULIN ASPART 100 UNIT/ML SUBCUT ×2 (18:18→21:35)
--- NOTE | 2023-10-24 23:41 | PC.NURSE ---
End of Shift: Patient pleasant and cooperative, A&O. VSS, afebrile. SpO2 Tolerating full liquid diet. Patient denies pain this shift. Insulin given per sliding scale per AUG.
[2023-10-25] VITALS (12 sets, daily range): BP systolic 130–147; BP diastolic 55–85; PULSE 61–66; RESP 16–22; TEMP 36.3–37.2; O2SAT 91–98
[2023-10-25] MEDS: PIPERACILLIN/TAZOBACTAM 3.375 GM in 0.9 % SODIUM CHLORIDE Mini-bag 100 ML IVPB ×4 (00:21→18:54)
--- NOTE | 2023-10-25 06:21 | PC.NURSE ---
23-07: pleasant and cooperative. no c/o pain. using urinal at bedside. calls appropriately. VSS.
[2023-10-25 07:28] LABS: Basophils Percent Auto 0.5 % (0.0-3.0); Eosinophils Percent Auto 0.1 % (0.0-7.0); Hematocrit 32.1 % (37.0-53.0); Hemoglobin* 10.3 gm/dL (13.5-17.5); Immature Granulocytes Pct Auto 19.8 %; Lymphocytes Percent Auto 18.6 % (20-44); Mean Corpuscular HGB Conc 32 gm/dL (32-36); Mean Corpuscular Hemoglobin 32 pg (26-34); Mean Corpuscular Volume 101 fL (80-100); Monocytes Percent Auto 27.7 % (0.0-11.0); Neutrophils Percent Auto 33.3 % (42.0-72.0); Platelet Count* 333 K/uL (140-440); RDW Coefficient of Variation % 23.2 % (11.5-15.5); Red Blood Count 3.19 m/uL (4.30-5.90); White Blood Count* 14.27 K/uL (4.50-11.00)
[2023-10-25 07:39] LABS: Slide Review Reflex Yes
[2023-10-25 07:47] LABS: Albumin* 3.5 g/dL (3.3-5.0); Chloride* 114 mmol/L (96-114); Sodium* 145 mmol/L (135-149)
[2023-10-25 07:48] LABS: Potassium* 3.7 mmol/L (3.6-5.1)
[2023-10-25 07:50] LABS: Alkaline Phosphatase* 117 U/L (40-150); Anion Gap 5 mEq/L (7-15); Aspartate Amino Transferase* 34 U/L (12-35); Bilirubin Total* 0.7 mg/dL (0.1-1.5); Blood Urea Nitrogen* 40 mg/dL (7-30); Calcium* 8.8 mg/dL (8.4-10.6); Carbon Dioxide* 26 mmol/L (20-32); Creatinine* 1.2 mg/dL (0.5-1.5); Est. Creatinine Clearance* 53.89; Estimated Glomerular Filt Rate 61 ml/min; Lipase* 16 U/L (23-300); Total Protein* 7.9 g/dL (6.0-8.3)
[2023-10-25 07:51] LABS: Alanine Aminotransferase* 15 U/L (4-50)
[2023-10-25 07:53] LABS: Glucose* 41 mg/dL (60-115)
[2023-10-25 08:31] LABS: Slide Review Acceptable Review (Acceptable)
[2023-10-25] MEDS: PANTOPRAZOLE SODIUM 40 MG INJ IVP (08:32)
[2023-10-25] MEDS: SODIUM CHLORIDE 0.9 % (FLUSH) 10 ML SYRINGE 5 ML IVF ×2 (08:32→20:40)
--- NOTE | 2023-10-25 09:14 | P.IMPN_ITS ---
Progress Note: A&P Assessment and plan (1) Abnormal gallbladder ultrasound: Problem details: - General Surgery following, asymptomatic - Zosyn initiated 10/24/23, NPO as of 10/24 following episode of vomiting after pudding - holding ASA Status: Acute (2) Cholelithiasis: Status: Acute (3) SEEMA (acute kidney injury): Problem details: - on top of chronic kidney disease (Cr 2.1 on 10/22, baseline 1.2-1.3) - likely prerenal given concern for GI Bleed, episode of vomiting, decreased po intake - IVFs, hold nephrotoxins, follow closely - improved on 10/24/23 Status: Acute (4) Anemia: Problem details: - Hgb 7.1 on 10/23/23 (has been between 8.4 and 9.9 over the past 2 months, per [facility] chart review) - s/p 2U PRBCs on 10/22, improvement of Hgb to 9.4 Status: Acute (5) Type 2 diabetes mellitus: Problem details: - last A1C 9.5 (September 2023) - accuchecks, continue long-acting insulin (dose has been cut in half given hypoglycemia), hold sliding scale while NPO Status: Chronic (6) GI bleed: Problem details: - noted streaks of blood in emesis on 10/22 am, anemia, elevated BUN - IV PPI initiated on 10/22, EGD ordered - EGD reassuring without evidence of ulcer - hemoglobin stable on 10/24 Status: Acute Plan - per above Subjective Date Seen: 10/25/23 Interval history: Rossy was admitted to the hospital on 10/22 for SEEMA and concern for GI bleed given acute on chronic anemia + an episode of hemoptysis on the morning of 10/22. Admission Hgb 7.1, increased to >10 after 2U of PRBCs. EGD on 10/23 reassuring without any ulcerations or acute bleeding. CT and ultrasound concerning for cholecystitis, Dr. Gonzalez of General Surgery is following. Given age and comorbidities, monitoring while on IV Zosyn. Rossy continues to have no concerns of abdominal pain. He has been drinking well - had juice this morning for a BG of 41 (asymptomatic, drank juice with improvement). Had a trial of pudding this morning and vomited soon after (no pain or nausea). He then had an episode of non-bloody diarrhea. He has been since made NPO. Exam Narrative: Exam Narrative: GEN: Alert and laying comfortably in bed HEENT: EOMIs bilaterally, no scleral icterus CV: RRR R: LCTA bilaterally without concerning wheezing Ab: soft, no distention or concerning ttp Ext: wwp, no concerning edema Neuro: No focal deficits, no resting tremor Psych: Appropriate low baseline Const: Vital Signs, click to edit/add: Vital Signs - 24 hr 10/24/23 12:32 10/24/23 15:00 10/24/23 15:00 Temperature 97.8 F 98.5 F Pulse Rate Pulse Rate [Left P ulse Oximeter] 66 66 Pulse Rate [Left R adial] 62 Respiratory Rate 16 20 20 Blood Pressure [Le ft Arm] 129/59 L 133/56 L Pulse Oximetry 94 97 Oxygen Delivery Me thod Nasal Cannula Nasal Cannula Oxygen Flow Rate 1 1 10/24/23 15:00 10/24/23 15:00 10/24/23 19:44 Temperature 97.9 F Pulse Rate 58 L Pulse Rate [Left P ulse Oximeter] Pulse Rate [Left R adial] 63 Respiratory Rate 20 20 Blood Pressure [Le ft Arm] 120/60 Pulse Oximetry 97 96 Oxygen Delivery Me thod Nasal Cannula Room Air Oxygen Flow Rate 1 10/24/23 22:58 10/24/23 23:00 10/24/23 23:00 Temperature Pulse Rate 61 Pulse Rate [Left P ulse Oximeter] Pulse Rate [Left R adial] Respiratory Rate 20 20 Blood Pressure [Le ft Arm] Pulse Oximetry 95 Oxygen Delivery Me thod Room Air Oxygen Flow Rate 10/25/23 00:05 10/25/23 03:30 10/25/23 07:51 Temperature 97.4 F L 97.7 F Pulse Rate Pulse Rate [Left P ulse Oximeter] 61 62 Pulse Rate [Left R adial] Respiratory Rate 20 20 16 Blood Pressure [Le ft Arm] 130/55 L 143/58 H Pulse Oximetry 95 98 94 Oxygen Delivery Me thod Room Air Room Air Room Air Oxygen Flow Rate 10/25/23 07:51 Temperature 97.9 F Pulse Rate Pulse Rate [Left P ulse Oximeter] 65 Pulse Rate [Left R adial] Respiratory Rate 16 Blood Pressure [Le ft Arm] 147/69 H Pulse Oximetry 94 Oxygen Delivery Me thod Room Air Oxygen Flow Rate Labs Labs: Laboratory Results - last 24 hr 10/25/23 07:18 WBC 14.27 H RBC 3.19 L Hgb 10.3 L Hct 32.1 L MCV 101 H MCH 32 MCHC 32 RDW Coeff of Khushboo 23.2 H Plt Count 333 Neut % (Auto) 33.3 L Lymph % (Auto) 18.6 L Clinton % (Auto) 27.7 H Eos % (Auto) 0.1 Baso % (Auto) 0.5 Neut # (Auto) 4.80 Lymph # (Auto) 2.70 Clinton # (Auto) 4.00 H Eos # (Auto) 0.00 Baso # (Auto) 0.10 Abs Immat Gran (auto) 2.80 H Imm/Tot Granulo (auto) 19.8 Diff Slide Review Acceptable Review Sodium 145 Potassium 3.7 Chloride 114 Carbon Dioxide 26 Anion Gap 5 L BUN 40 H Creatinine 1.2 Estimated Creat Clear 53.89 Estimated GFR 61 Glucose 41 L* Calcium 8.8 Total Bilirubin 0.7 AST 34 ALT 15 Alkaline Phosphatase 117 Total Protein 7.9 Albumin 3.5 Lipase 16 L
--- NOTE | 2023-10-25 10:25 | PM.GSPN ---
Subjective Subjective Date Seen: 10/25/23 Interval history: Rossy continues to deny pain. No issues with dinner yesterday. Had no nausea but then did throw up again this morning. Exam Narrative: Exam Narrative: General: no acute distress CV: regular Respitory: breathing non-labored Abdomen: Soft, non-tender. Non-distended. Const: Vital Signs, click to edit/add: Vital Signs - 24 hr 10/24/23 12:32 10/24/23 15:00 10/24/23 15:00 Temperature 97.8 F 98.5 F Pulse Rate Pulse Rate [Left P ulse Oximeter] 66 66 Pulse Rate [Left R adial] 62 Respiratory Rate 16 20 20 Blood Pressure [Le ft Arm] 129/59 L 133/56 L Pulse Oximetry 94 97 Oxygen Delivery Me thod Nasal Cannula Nasal Cannula Oxygen Flow Rate 1 1 10/24/23 15:00 10/24/23 15:00 10/24/23 19:44 Temperature 97.9 F Pulse Rate 58 L Pulse Rate [Left P ulse Oximeter] Pulse Rate [Left R adial] 63 Respiratory Rate 20 20 Blood Pressure [Le ft Arm] 120/60 Pulse Oximetry 97 96 Oxygen Delivery Me thod Nasal Cannula Room Air Oxygen Flow Rate 1 10/24/23 22:58 10/24/23 23:00 10/24/23 23:00 Temperature Pulse Rate 61 Pulse Rate [Left P ulse Oximeter] Pulse Rate [Left R adial] Respiratory Rate 20 20 Blood Pressure [Le ft Arm] Pulse Oximetry 95 Oxygen Delivery Me thod Room Air Oxygen Flow Rate 10/25/23 00:05 10/25/23 03:30 10/25/23 07:51 Temperature 97.4 F L 97.7 F Pulse Rate Pulse Rate [Left P ulse Oximeter] 61 62 Pulse Rate [Left R adial] Respiratory Rate 20 20 16 Blood Pressure [Le ft Arm] 130/55 L 143/58 H Pulse Oximetry 95 98 94 Oxygen Delivery Me thod Room Air Room Air Room Air Oxygen Flow Rate 10/25/23 07:51 Temperature 97.9 F Pulse Rate Pulse Rate [Left P ulse Oximeter] 65 Pulse Rate [Left R adial] Respiratory Rate 16 Blood Pressure [Le ft Arm] 147/69 H Pulse Oximetry 94 Oxygen Delivery Me thod Room Air Oxygen Flow Rate Labs/Imaging Labs Labs: WBC 14.27 from 15 hgb stable at 10.3 from 9.4 Progress Note:A&P Assessment and plan (1) Cholelithiasis: Status: Acute (2) Abnormal gallbladder ultrasound: Status: Acute (3) SEEMA (acute kidney injury): Status: Acute (4) Anemia: Status: Acute Plan The patient is an 78 year old male with persistent vomiting, elevated ABC, anemia and imaging findings of gallbladder thickening but in the setting of gallbladder contraction. No abdominal pain or inflammation about the gallbladder seen on imaging. - it is possible his gallbladder is contributing, however, oddly he did not have an elevated WBC on admission and this would not explain his acute on chronic anemia. - He is frail and is not a particularly good surgical candidate if the diagnosis is not clear. -unable to get a HIDA scan over the weekend to rule in cholecystitis -I doubt cholecystostomy tube would be helpful given his contracted gallbladder with stones -therefore will reassess daily - recommend NPO status and antibiotics for now. -follow up labs tomorrow
--- NOTE | 2023-10-25 10:44 | PC.SOCIAL ---
Discharge planning: Called [facility] regarding d/c plan. Spoke with Director, Zakiya, who confirms they will accept pt back at discharge as long as they are notified prior to discharge and confirm they can provide needed care. Over the weekend, please call the RN at [phone] when discharge date is known so they have as much time as possible to prepare for pt's return. Please confirm with RN where to email or fax discharge orders and send those prior to discharge.
[2023-10-26] VITALS (8 sets, daily range): BP systolic 132–158; BP diastolic 59–68; PULSE 57–67; RESP 16–18; TEMP 36.3–36.9; O2SAT 92–95
[2023-10-26] MEDS: PIPERACILLIN/TAZOBACTAM 3.375 GM in 0.9 % SODIUM CHLORIDE Mini-bag 100 ML IVPB ×4 (00:42→18:42)
--- NOTE | 2023-10-26 06:20 | PC.NURSE ---
End of shift [id number]: A&O pleasant and cooperative. VSS w/ sats >90% on RA. Pt incontinent or using urinal at bedside. Dressings to feet c/d/i. Pt slept throughout shift. Denying pain. NPO
[2023-10-26 06:44] LABS: Basophils Percent Auto 0.4 % (0.0-3.0); Eosinophils Percent Auto 0.2 % (0.0-7.0); Hematocrit 29.7 % (37.0-53.0); Hemoglobin* 9.3 gm/dL (13.5-17.5); Immature Granulocytes Pct Auto 22.1 %; Lymphocytes Percent Auto 30.5 % (20-44); Mean Corpuscular HGB Conc 31 gm/dL (32-36); Mean Corpuscular Hemoglobin 32 pg (26-34); Mean Corpuscular Volume 103 fL (80-100); Monocytes Percent Auto 16.4 % (0.0-11.0); Neutrophils Percent Auto 30.4 % (42.0-72.0); Platelet Count* 331 K/uL (140-440); RDW Coefficient of Variation % 22.9 % (11.5-15.5); Red Blood Count 2.88 m/uL (4.30-5.90)
[2023-10-26 06:45] LABS: Slide Review Reflex No
[2023-10-26 07:04] LABS: Albumin* 3.3 g/dL (3.3-5.0); Chloride* 113 mmol/L (96-114); Sodium* 143 mmol/L (135-149)
[2023-10-26 07:05] LABS: Potassium* 3.8 mmol/L (3.6-5.1)
[2023-10-26 07:07] LABS: Alkaline Phosphatase* 114 U/L (40-150); Anion Gap 4 mEq/L (7-15); Aspartate Amino Transferase* 34 U/L (12-35); Bilirubin Total* 0.7 mg/dL (0.1-1.5); Blood Urea Nitrogen* 25 mg/dL (7-30); Carbon Dioxide* 26 mmol/L (20-32); Creatinine* 1.2 mg/dL (0.5-1.5); Est. Creatinine Clearance* 53.89; Estimated Glomerular Filt Rate 61 ml/min; Total Protein* 7.3 g/dL (6.0-8.3)
[2023-10-26 07:08] LABS: Alanine Aminotransferase* 17 U/L (4-50); Calcium* 8.2 mg/dL (8.4-10.6); Glucose* 164 mg/dL (60-115)
[2023-10-26] MEDS: LACTATED RINGERS 1000 ML 1,000 ML 75 ML IV (09:03)
[2023-10-26] MEDS: SODIUM CHLORIDE 0.9 % (FLUSH) 10 ML SYRINGE 5 ML IVF (09:04)
[2023-10-26] MEDS: PANTOPRAZOLE SODIUM 40 MG INJ IVP (09:11)
--- NOTE | 2023-10-26 10:35 | PM.GSPN ---
Subjective Subjective Date Seen: 10/26/23 Interval history: Rossy did well overnight. Denies abdominal pain. No nausea. Has been NPO however. Has had a bowel movement. Exam Narrative: Exam Narrative: General: No acute distress Respiratory: Clear to auscultation bilaterally CV: Regular rate and rhythm Abdomen: Soft. Nontender. Particularly nontender the right upper quadrant. Negative Saba sign. Bowel sounds are present Const: Vital Signs, click to edit/add: Vital Signs - 24 hr 10/25/23 11:24 10/25/23 11:31 10/25/23 15:00 Temperature 99.0 F Pulse Rate 65 Pulse Rate [Left P ulse Oximeter] 66 65 Respiratory Rate 18 22 Blood Pressure [Le ft Arm] 134/85 Pulse Oximetry 93 Oxygen Delivery Me thod Room Air 10/25/23 16:03 10/25/23 16:04 10/25/23 16:04 Temperature 98.7 F Pulse Rate 64 Pulse Rate [Left P ulse Oximeter] 65 Respiratory Rate 22 22 Blood Pressure [Le ft Arm] 132/62 Pulse Oximetry 92 92 Oxygen Delivery Me thod Room Air Room Air 10/25/23 19:22 10/25/23 23:04 10/25/23 23:05 Temperature 98.4 F 97.5 F L Pulse Rate Pulse Rate [Left P ulse Oximeter] 61 62 Respiratory Rate 16 18 18 Blood Pressure [Le ft Arm] 130/61 133/63 Pulse Oximetry 91 93 93 Oxygen Delivery Me thod Room Air Room Air Room Air 10/25/23 23:30 10/26/23 03:20 Temperature 97.3 F L Pulse Rate 64 Pulse Rate [Left P ulse Oximeter] 63 Respiratory Rate 16 Blood Pressure [Le ft Arm] 158/68 H Pulse Oximetry 95 Oxygen Delivery Me thod Room Air Labs/Imaging Labs Labs: White blood cell count is down today at 12. BUN and creatinine have returned to normal. LFTs remain normal. Progress Note:A&P Assessment and plan (1) Cholelithiasis: Status: Acute (2) Abnormal gallbladder ultrasound: Status: Acute (3) Anemia: Status: Acute (4) Vomiting: Status: Acute Plan The patient is an 78-year-old male hospitalized with initially what was thought to be anemia from a GI bleed and hematemesis, however now patient has an elevated white blood cell count and CT scan showing a contracted gallbladder with thickened wall and stones. He has no pain, however he has had vomiting several days with advancement of diet. White blood cell count is slightly improved today, the patient continues to deny pain or nausea and has antegrade bowel function. Will plan on advancing diet again to clears to reassess. Would favor conservative approach if this is cholecystitis, however will reassess each day. I did attempt to call the patient's sister to update her on the plan.
--- NOTE | 2023-10-26 10:39 | P.IMPN_ITS ---
Progress Note: A&P Assessment and plan (1) Abnormal gallbladder ultrasound: Problem details: - General Surgery following, asymptomatic - Zosyn initiated 10/24/23, NPO as of 10/24 following episode of vomiting after pudding - holding ASA - 10/25 thirsty/hungry, WBC improving; IVF started and advanced to clears. Monitor CBC, BMP in am. Status: Acute (2) Cholelithiasis: Status: Acute (3) GI bleed: Problem details: - noted streaks of blood in emesis on 10/22 am, anemia, elevated BUN - IV PPI initiated on 10/22, EGD ordered - EGD reassuring without evidence of ulcer - hemoglobin stable Status: Acute (4) SEEMA (acute kidney injury): Problem details: - on top of chronic kidney disease (Cr 2.1 on 10/22, baseline 1.2-1.3) - likely prerenal given concern for GI Bleed, episode of vomiting, decreased po intake - IVFs, hold nephrotoxins, follow closely - improved on 10/24/23 - 10/25 Cr at baseline, 1.2. Status: Resolved (5) Anemia: Problem details: - Hgb 7.1 on 10/23/23 (has been between 8.4 and 9.9 over the past 2 months, per [facility] chart review) - s/p 2U PRBCs on 10/22, improvement of Hgb to 9.4 - 10/25 Hgb stable at 9.3. Status: Acute (6) Type 2 diabetes mellitus: Problem details: - last A1C 9.5 (September 2023) - accuchecks, continue long-acting insulin (dose has been cut in half given hypoglycemia), hold sliding scale while NPO - 10/25 POC glucoses within goal, 150s-low 200s; continue current regimen. Status: Chronic Subjective Time Seen by Provider: 08:40 Date Seen: 10/26/23 Interval history: Merle complains of thirst. Denies pain. I spoke with Dr. Gonzalez who agrees with advancing to clears today. Around 12:30 p.m. I called his sister, Joyce, and gave her an update. Exam Narrative: Exam Narrative: General: No acute distress. Awake, alert, oriented. No pallor. No jaundice. Oropharynx: Clear. Mucous membranes moist. Cardiovascular: Regular rate and rhythm. No murmurs, gallops, or rubs. Respiratory: Clear to auscultation bilaterally. No wheezes or crackles. Abdomen: Bowel sounds present. Soft, nondistended, nontender. Extremities: No pedal edema. Const: Vital Signs, click to edit/add: Vital Signs - 24 hr 10/25/23 11:24 10/25/23 11:31 10/25/23 15:00 Temperature 99.0 F Pulse Rate 65 Pulse Rate [Left P ulse Oximeter] 66 65 Respiratory Rate 18 22 Blood Pressure [Le ft Arm] 134/85 Pulse Oximetry 93 Oxygen Delivery Me thod Room Air 10/25/23 16:03 10/25/23 16:04 10/25/23 16:04 Temperature 98.7 F Pulse Rate 64 Pulse Rate [Left P ulse Oximeter] 65 Respiratory Rate 22 22 Blood Pressure [Le ft Arm] 132/62 Pulse Oximetry 92 92 Oxygen Delivery Me thod Room Air Room Air 10/25/23 19:22 10/25/23 23:04 10/25/23 23:05 Temperature 98.4 F 97.5 F L Pulse Rate Pulse Rate [Left P ulse Oximeter] 61 62 Respiratory Rate 16 18 18 Blood Pressure [Le ft Arm] 130/61 133/63 Pulse Oximetry 91 93 93 Oxygen Delivery Me thod Room Air Room Air Room Air 10/25/23 23:30 10/26/23 03:20 Temperature 97.3 F L Pulse Rate 64 Pulse Rate [Left P ulse Oximeter] 63 Respiratory Rate 16 Blood Pressure [Le ft Arm] 158/68 H Pulse Oximetry 95 Oxygen Delivery Me thod Room Air Labs Labs: Laboratory Results - last 24 hr 10/26/23 05:47 WBC 12.20 H RBC 2.88 L Hgb 9.3 L Hct 29.7 L MCV 103 H MCH 32 MCHC 31 L RDW Coeff of Khushboo 22.9 H Plt Count 331 Neut % (Auto) 30.4 L Lymph % (Auto) 30.5 [place] % (Auto) 16.4 H Eos % (Auto) 0.2 Baso % (Auto) 0.4 Neut # (Auto) 3.70 Lymph # (Auto) 3.70 H [place] # (Auto) 2.00 H Eos # (Auto) 0.00 Baso # (Auto) 0.00 Abs Immat Gran (auto) 2.70 H Imm/Tot Granulo (auto) 22.1 Sodium 143 Potassium 3.8 Chloride 113 Carbon Dioxide 26 Anion Gap 4 L BUN 25 Creatinine 1.2 Estimated Creat Clear 53.89 Estimated GFR 61 Glucose 164 H Calcium 8.2 L Total Bilirubin 0.7 AST 34 ALT 17 Alkaline Phosphatase 114 Total Protein 7.3 Albumin 3.3
--- NOTE | 2023-10-26 19:33 | PC.NURSE ---
End of Shift: Patient pleasant and cooperative, A&O. VSS, afebrile. SpO2 maintained above 90% on RA. Patient started a clear liquid diet today, tolerating well. Will use urinal at bedside, but is sometimes incontinent.?Denies pain this shift.
[2023-10-27] VITALS (10 sets, daily range): BP systolic 127–144; BP diastolic 50–70; PULSE 53–62; RESP 14–22; TEMP 36.2–36.8; O2SAT 91–97
[2023-10-27] MEDS: PIPERACILLIN/TAZOBACTAM 3.375 GM in 0.9 % SODIUM CHLORIDE Mini-bag 100 ML IVPB ×4 (00:51→18:32)
[2023-10-27] MEDS: LACTATED RINGERS 1000 ML 1,000 ML 75 ML IV ×2 (00:57→16:16)
--- NOTE | 2023-10-27 08:16 | PC.NURSE ---
Patient pleasant, alert and oriented. Transfers with walker, gait belt and assist of one. Afebrile. Denied any pain through the night.?
[2023-10-27] MEDS: PANTOPRAZOLE SODIUM 40 MG INJ IVP (08:38)
[2023-10-27] MEDS: SODIUM CHLORIDE 0.9 % (FLUSH) 10 ML SYRINGE 5 ML IVF (08:50)
--- NOTE | 2023-10-27 09:15 | P.IMPN_ITS ---
Progress Note: A&P Assessment and plan (1) Abnormal gallbladder ultrasound: Problem details: - General Surgery following, asymptomatic - Zosyn initiated 10/24/23, NPO as of 10/24 following episode of vomiting after pudding - holding ASA - 10/25 thirsty/hungry, WBC improving; IVF started and advanced to clears. Monitor CBC, BMP in am. - 10/26 Tolerating clears. I spoke with Dr. Gonzalez who agrees with trial of full liquids. Status: Acute (2) Cholelithiasis: Status: Acute (3) GI bleed: Problem details: - noted streaks of blood in emesis on 10/22 am, anemia, elevated BUN - IV PPI initiated on 10/22, EGD ordered - EGD reassuring without evidence of ulcer - Aspirin is on hold - hemoglobin has been stable, recheck in am Status: Acute (4) Anemia: Problem details: - Hgb 7.1 on 10/23/23 (has been between 8.4 and 9.9 over the past 2 months, per [facility] chart review) - s/p 2U PRBCs on 10/22, improvement of Hgb to 9.4 - 10/25 Hgb stable at 9.3. Status: Acute (5) SEEMA (acute kidney injury): Problem details: - on top of chronic kidney disease (Cr 2.1 on 10/22, baseline 1.2-1.3) - likely prerenal given concern for GI Bleed, episode of vomiting, decreased po intake - IVFs, hold nephrotoxins, follow closely - improved on 10/24/23 - 10/25 Cr at baseline, 1.2. Status: Resolved (6) Type 2 diabetes mellitus: Problem details: - last A1C 9.5 (September 2023) - accuchecks, continue long-acting insulin (dose has been cut in half given hypoglycemia), hold sliding scale while NPO - 10/26 POC glucoses within goal, 150s-180s; add ISS with meals if he tolerates full liquids today Status: Chronic Plan VTE prophylaxis: SCDs. No pharmacologic prophylaxis due to recent GI bleeding. Subjective Time Seen by Provider: 08:15 Date Seen: 10/27/23 Interval history: Rossy denies nausea or abdominal pain. He has no complaints. He wondered if he would be in the hospital for a few days yet. Exam Narrative: Exam Narrative: General: No acute distress. Awake, alert, oriented. No pallor. No jaundice. Oropharynx: Clear. Mucous membranes moist. Cardiovascular: Regular rate and rhythm. No murmurs, gallops, or rubs. Respiratory: Clear to auscultation bilaterally. No wheezes or crackles. Abdomen: Bowel sounds present. Soft, nondistended, nontender. Extremities: No pedal edema. Const: Vital Signs, click to edit/add: Vital Signs - 24 hr 10/26/23 11:00 10/26/23 15:00 10/26/23 15:00 Temperature 97.8 F 98.0 F Pulse Rate Pulse Rate [Left P ulse Oximeter] 60 58 L 58 L Respiratory Rate 18 16 16 Blood Pressure [Le ft Arm] 136/61 132/62 Pulse Oximetry 93 93 Oxygen Delivery Ne thod Room Air Room Air 10/26/23 15:00 10/26/23 15:58 10/26/23 19:00 Temperature 98.4 F Pulse Rate 59 L Pulse Rate [Left P ulse Oximeter] 57 L Respiratory Rate 16 17 Blood Pressure [Le ft Arm] 139/61 Pulse Oximetry 93 95 Oxygen Delivery Ne thod Room Air Room Air 10/26/23 23:00 10/26/23 23:00 10/26/23 23:00 Temperature 98.5 F Pulse Rate 67 Pulse Rate [Left P ulse Oximeter] 58 L Respiratory Rate 18 18 Blood Pressure [Le ft Arm] 144/62 H Pulse Oximetry 95 95 Oxygen Delivery Ne thod Room Air Room Air 10/27/23 03:00 10/27/23 08:02 10/27/23 08:02 Temperature 97.8 F 97.2 F L Pulse Rate Pulse Rate [Left P ulse Oximeter] 59 L 56 L Respiratory Rate 20 14 14 Blood Pressure [Le ft Arm] 132/62 139/70 Pulse Oximetry 92 92 92 Oxygen Delivery Ne thod Room Air Room Air Room Air 10/27/23 08:08 Temperature Pulse Rate 62 Pulse Rate [Left P ulse Oximeter] Respiratory Rate Blood Pressure [Le ft Arm] Pulse Oximetry Oxygen Delivery Ne thod
--- NOTE | 2023-10-27 12:33 | PM.GSPN ---
Subjective Subjective Date Seen: 10/27/23 Interval history: Rossy is resting comfortably in bed. He tolerated clears all the yesterday. No nausea. Tolerated a soft diet for breakfast. Exam Narrative: Exam Narrative: General: Resting comfortably in bed did not rouse to exam. Abdomen: Soft Const: Vital Signs, click to edit/add: Vital Signs - 24 hr 10/26/23 15:00 10/26/23 15:00 10/26/23 15:00 Temperature 98.0 F Pulse Rate Pulse Rate [Left P ulse Oximeter] 58 L 58 L Respiratory Rate 16 16 16 Blood Pressure [Le ft Arm] 132/62 Pulse Oximetry 93 93 Oxygen Delivery Me thod Room Air Room Air 10/26/23 15:58 10/26/23 19:00 10/26/23 23:00 Temperature 98.4 F 98.5 F Pulse Rate 59 L Pulse Rate [Left P ulse Oximeter] 57 L 58 L Respiratory Rate 17 18 Blood Pressure [Le ft Arm] 139/61 144/62 H Pulse Oximetry 95 95 Oxygen Delivery Me thod Room Air Room Air 10/26/23 23:00 10/26/23 23:00 10/27/23 03:00 Temperature 97.8 F Pulse Rate 67 Pulse Rate [Left P ulse Oximeter] 59 L Respiratory Rate 18 20 Blood Pressure [Le ft Arm] 132/62 Pulse Oximetry 95 92 Oxygen Delivery Ga thod Room Air Room Air 10/27/23 08:02 10/27/23 08:02 10/27/23 08:08 Temperature 97.2 F L Pulse Rate 62 Pulse Rate [Left P ulse Oximeter] 56 L Respiratory Rate 14 14 Blood Pressure [Le ft Arm] 139/70 Pulse Oximetry 92 92 Oxygen Delivery Ga thod Room Air Room Air 10/27/23 10:51 Temperature 97.6 F Pulse Rate Pulse Rate [Left P ulse Oximeter] 56 L Respiratory Rate 18 Blood Pressure [Le ft Arm] 129/57 L Pulse Oximetry 97 Oxygen Delivery Me thod Room Air Labs/Imaging Labs Labs: Labs were ordered today however not back. Progress Note:A&P Assessment and plan (1) Cholelithiasis: Status: Acute (2) Vomiting: Status: Acute (3) Abnormal gallbladder ultrasound: Status: Acute Plan The patient is an 78-year-old male with coli lithiasis and gallbladder thickening but with out abdominal pain. He had been vomiting on admission and when his diet was advanced. This morning his diet was able to be advanced without issue. Would recommend repeating labs if not today then tomorrow to ensure white blood cell count is trending down. -continue to advance diet as tolerated. -continue antibiotics for now. If patient is improved could go home on oral antibiotics. -awaiting pathology results from endoscopy
--- NOTE | 2023-10-27 16:48 | PC.NURSE ---
Shift Summary: patient pleasant and cooperative. Up with one assist, walker and gait belt to chair. T&R in bed q2h, patient able to move self well in bed but needs encouragement to offload. Tolerating full liquid diet, denies pain or nausea, no emesis. Vitals stable and WNL. Using urinal to void, no BM, no incontinence noted.
[2023-10-27] MEDS: INSULIN ASPART 100 UNIT/ML SUBCUT (22:03)
[2023-10-28] MEDS: PIPERACILLIN/TAZOBACTAM 3.375 GM in 0.9 % SODIUM CHLORIDE Mini-bag 100 ML IVPB ×2 (00:45→06:50)
[2023-10-28 02:59] VITALS: BP 144/65; PULSE 50; RESP 18; TEMP 36.2; O2SAT 93
[2023-10-28 06:17] LABS: Basophils Absolute Auto 0.02 K/uL (0.00-0.30); Basophils Percent Auto 0.3 % (0.0-3.0); Eosinophils Absolute Auto 0.02 K/uL (0.00-0.50); Eosinophils Percent Auto 0.3 % (0.0-7.0); Hematocrit 26.2 % (37.0-53.0); Hemoglobin* 8.3 gm/dL (13.5-17.5); Immature Granulocytes Abs Auto 1.71 K/uL (0.00-0.30); Lymphocytes Percent Auto 42.5 % (20-44); Mean Corpuscular HGB Conc 32 gm/dL (32-36); Mean Corpuscular Hemoglobin 32 pg (26-34); Mean Corpuscular Volume 102 fL (80-100); Monocytes Percent Auto 8.5 % (0.0-11.0); Neutrophils Percent Auto 26.4 % (42.0-72.0); Platelet Count* 284 K/uL (140-440); RDW Coefficient of Variation % 21.5 % (11.5-15.5); Red Blood Count 2.56 m/uL (4.30-5.90); White Blood Count* 7.77 K/uL (4.50-11.00)
[2023-10-28 06:19] LABS: Slide Review Reflex No
[2023-10-28] MEDS: LACTATED RINGERS 1000 ML 1,000 ML 75 ML IV (06:22)
[2023-10-28 06:31] LABS: Chloride* 109 mmol/L (96-114); Potassium* 4.5 mmol/L (3.6-5.1); Sodium* 137 mmol/L (135-149)
[2023-10-28 06:34] LABS: Anion Gap 0 mEq/L (7-15); Blood Urea Nitrogen* 18 mg/dL (7-30); Carbon Dioxide* 28 mmol/L (20-32); Est. Creatinine Clearance* 64.67; Estimated Glomerular Filt Rate 76 ml/min; Glucose* 266 mg/dL (60-115)
[2023-10-28 06:35] LABS: Calcium* 7.7 mg/dL (8.4-10.6)
--- NOTE | 2023-10-28 06:39 | PC.NURSE ---
End of shift [id number]: A&O pleasant and cooperative. VSS. Urinal at bedside. Up with A1 walker and gait belt. Uses call light appropriately.
[2023-10-28 07:00] VITALS: O2SAT 95
[2023-10-28 07:39] VITALS: BP 138/60; PULSE 55; RESP 18; TEMP 36.6; O2SAT 95
--- NOTE | 2023-10-28 09:01 | PM.GSPN ---
Subjective Subjective Date Seen: 10/28/23 Interval history: Rossy is doing well. tolerated full liquids without any difficulty. Continues to deny abdominal pain. Exam Narrative: Exam Narrative: General: No acute distress abdomen: Soft, nontender. Const: Vital Signs, click to edit/add: Vital Signs - 24 hr 10/27/23 10:51 10/27/23 15:00 10/27/23 15:00 Temperature 97.6 F 97.5 F L Pulse Rate Pulse Rate [Left P ulse Oximeter] 56 L 56 L Respiratory Rate 18 14 14 Blood Pressure [Le ft Arm] 129/57 L 134/56 L Pulse Oximetry 97 93 93 Oxygen Delivery Me thod Room Air Room Air Room Air 10/27/23 15:33 10/27/23 19:20 10/27/23 22:07 Temperature 98.3 F 98.2 F Pulse Rate 57 L Pulse Rate [Left P ulse Oximeter] 60 55 L Respiratory Rate 17 22 Blood Pressure [Le ft Arm] 127/50 L 144/54 H Pulse Oximetry 91 93 Oxygen Delivery Me thod Room Air Room Air 10/27/23 23:19 10/27/23 23:47 10/28/23 02:59 Temperature 97.1 F L Pulse Rate 53 L Pulse Rate [Left P ulse Oximeter] 50 L Respiratory Rate 22 18 Blood Pressure [Le ft Arm] 144/65 H Pulse Oximetry 93 93 Oxygen Delivery Me thod Room Air Room Air 10/28/23 07:39 Temperature 97.8 F Pulse Rate Pulse Rate [Left P ulse Oximeter] 55 L Respiratory Rate 18 Blood Pressure [Le ft Arm] 138/60 Pulse Oximetry 95 Oxygen Delivery Me thod Room Air Labs/Imaging Labs Labs: White blood cell count today is normal. Progress Note:A&P Assessment and plan (1) Vomiting: Status: Acute (2) Anemia: Status: Acute (3) Cholelithiasis: Status: Acute (4) Abnormal gallbladder ultrasound: Status: Acute Plan The patient is an 78-year-old male admitted with anemia and vomiting, found to have gallstones and a contracted gallbladder on ultrasound. He is doing well now and has tolerated liquid diet for 2 days. White blood cell count is normal. Recommend advancing diet. Can continue antibiotics as outpatient for possible cholecystitis For a total of 7 days.
[2023-10-28] MEDS: INSULIN ASPART 100 UNIT/ML SUBCUT (09:04)
[2023-10-28] MEDS: AMOXICILLIN/CLAVULANATE 875 mg/125 mg TABLET PO (09:43)
[2023-10-28] MEDS: SODIUM CHLORIDE 0.9 % (FLUSH) 10 ML SYRINGE 5 ML IVF (09:43)
[2023-10-28] MEDS: PANTOPRAZOLE SODIUM 40 MG INJ IVP (09:43)
--- NOTE | 2023-10-28 10:10 | PC.SOCIAL ---
Addendum entered by IWONA Macedo 10/28/23 10:23: Provided pt with a copy of Important Message from Medicare document. Original Note: Discharge planning- Per MD, pt is ready for discharge back to [facility]. Contacted Zoie Gaona at [facility] and they are requesting a nurse to nurse before pt returns today. Nurse to Nurse phone number is Ladan at [phone]. Phone call to pt's sister, Jun, and provided update on discharge plans. Pt's sister will transport pt back to [facility] at 12:00 pm. Provided update to charge nurse. Social work will follow up as needed.
--- NOTE | 2023-10-28 10:45 | P.DS_ITS ---
DS: Providers Provider Time Seen by Provider: 09:00 Date Seen: 10/28/23 Date of admission: 10/23/23 14:11 Primary care physician: Sam Ruelas MD Admitting Clinician: Gin Diamond MD Consults: 10/23/23 14:10 Consult to Physical Therapy [CONS] Routine Comment: Reason(s) for PT Consult:: Evaluate and Treat Any Restrictions?:: No Restrictions 10/23/23 14:14 Consult to Occupational Therapy [CONS] Routine Comment: Reason(s) for OT Consult:: Evaluate and Treat Any Restrictions?:: No Restrictions Attending Physician on discharge: Mini Carter MD Date of Discharge: 10/28/23 DS: Diagnosis Discharge Diagnosis (1) Abnormal gallbladder ultrasound: Status: Acute Problem details: - General Surgery following, asymptomatic - Zosyn initiated 10/24/23, NPO as of 10/24 following episode of vomiting after pudding - holding ASA - 10/25 thirsty/hungry, WBC improving; IVF started and advanced to clears. Monitor CBC, BMP in am. - 10/26 Tolerating clears. I spoke with Dr. Gonzalez who agrees with trial of full liquids. - 10/27 Jaleesa full liq diet, advance to reg diet and d/c home on po augmentin for total of 10 days antibiotics. F/u with PCP. (2) Cholelithiasis: Status: Acute (3) GI bleed: Status: Acute Problem details: - noted streaks of blood in emesis on 10/22 am, anemia, elevated BUN - IV PPI initiated on 10/22, EGD ordered - EGD reassuring without evidence of ulcer - Aspirin is on hold - hemoglobin 8.3 at discharge. Continue to hold Aspirin, give daily omeprazole for a month, monitor hgb as outpatient, consider outpatient colonoscopy. (4) Anemia: Status: Acute Problem details: - Hgb 7.1 on 10/23/23 (has been between 8.4 and 9.9 over the past 2 months, per [facility] chart review) - s/p 2U PRBCs on 10/22, improvement of Hgb to 9.4 - 10/26 Hgb 8.3, drifting, monitor as outpatient. (5) SEEMA (acute kidney injury): Status: Resolved Problem details: - on top of chronic kidney disease (Cr 2.1 on 10/22, baseline 1.2-1.3) - likely prerenal given concern for GI Bleed, episode of vomiting, decreased po intake - IVFs, hold nephrotoxins, follow closely - improved on 10/24/23 - 10/26 Cr at baseline, 1. (6) Type 2 diabetes mellitus: Status: Chronic Problem details: - last A1C 9.5 (September 2023) - accuchecks, continue long-acting insulin (dose has been cut in half given hypoglycemia), hold sliding scale while NPO - 10/27 restart home insulin upon discharge (7) Frailty: Status: Acute DS: Summary Hospital Course Hospital Course: This is an 78-year-old male who was in his usual state of health when he was found have a hemoglobin of 7.1 on outpatient labs. Historically it had been 8.4-9.9 over the past 8 weeks. Patient had no lightheadedness, dizziness, abdominal pain or chest pain. He noted decreased appetite with a 1 emesis that contained ?red spots that look like cherries. ? He had not had any changes to his stools. In the ER he was found have a hemoglobin of 7.2, MCV 1 1 3. Creatinine was above baseline (1.2-1.3) at 2.1. He was started on IV PPI and given 2 units packed red blood cells. He had improvement of hemoglobin up to around 10 and that has since been drifting down again, 8.3 at discharge. EGD was unremarkable. He is been on a PPI during his hospital stay. SEEMA has resolved, creatinine now 1 at discharge. Additionally he was found to have an abnormal gallbladder with cholelithiasis. For this, General surgery was consulted. He was considered to be a poor surgical candidate due to frailty, so antibiotics were recommended. He had some emesis after advancing diet, so diet was dialed back in then advanced again on a later day and he did well with that. He is now tolerating a full liquid diet and will be trialing a regular diet before going back home. He has not had any abdominal pain or fever. He is discharged today in stable condition. Due to ongoing anemia and no clear cause of GI bleeding, consideration of outpatient colonoscopy for diagnostic purposes should be considered. He will be on several days of antibiotics for treatment of abnormal gallbladder, possible acute cholecystitis that was treated non operatively. Time Spent with Patient Time attestation: Total time spent providing and/or coordinating discharge services: Exam Narrative: Exam Narrative: General: No acute distress. Awake, alert, oriented. No pallor. No jaundice. Oropharynx: Clear. Mucous membranes moist. Cardiovascular: Regular rate and rhythm. No murmurs, gallops, or rubs. Respiratory: Clear to auscultation bilaterally. No wheezes or crackles. Abdomen: Bowel sounds present. Soft, nondistended, nontender. Extremities: No pedal edema. Const: Vital Signs, click to edit/add: Vital Signs - 24 hr 10/27/23 10:51 10/27/23 15:00 10/27/23 15:00 Temperature 97.6 F 97.5 F L Pulse Rate Pulse Rate [Left P ulse Oximeter] 56 L 56 L Respiratory Rate 18 14 14 Blood Pressure [Le ft Arm] 129/57 L 134/56 L Pulse Oximetry 97 93 93 Oxygen Delivery Mt thod Room Air Room Air Room Air 10/27/23 15:33 10/27/23 19:20 10/27/23 22:07 Temperature 98.3 F 98.2 F Pulse Rate 57 L Pulse Rate [Left P ulse Oximeter] 60 55 L Respiratory Rate 17 22 Blood Pressure [Le ft Arm] 127/50 L 144/54 H Pulse Oximetry 91 [facility] 10/27/23 23:19 10/27/23 23:47 10/28/23 02:59 Temperature 97.1 F L Pulse Rate 53 L Pulse Rate [Left P ulse Oximeter] 50 L Respiratory Rate 22 18 Blood Pressure [Le ft Arm] 144/65 H Pulse Oximetry 93 93 [facility] Air 10/28/23 07:00 10/28/23 07:39 Temperature 97.8 F Pulse Rate Pulse Rate [Left P ulse Oximeter] 55 L Respiratory Rate 18 Blood Pressure [Le ft Arm] 138/60 Pulse Oximetry 95 95 [facility] Air DS: Data Data Completed and Pending Labs on day of discharge: Labs from last 24 hours 10/28/23 05:45 WBC 7.77 RBC 2.56 L Hgb 8.3 L Hct 26.2 L MCV 102 H MCH 32 MCHC 32 RDW Coeff of Khushboo 21.5 H Plt Count 284 Neut % (Auto) 26.4 L Lymph % (Auto) 42.5 [place] % (Auto) 8.5 Eos % (Auto) 0.3 Baso % (Auto) 0.3 Neut # (Auto) 2.10 Lymph # (Auto) 3.30 H [place] # (Auto) 0.70 Eos # (Auto) 0.02 Baso # (Auto) 0.02 Abs Immat Gran (auto) 1.71 H Imm/Tot Granulo (auto) 22.0 Sodium 137 Potassium 4.5 Chloride 109 Carbon Dioxide 28 Anion Gap 0 L BUN 18 Creatinine 1.0 Estimated Creat Clear 64.67 Estimated GFR 76 Glucose 266 H Calcium 7.7 L Discharge Plan Discharge Disposition: Xfer [facility] Discharge Location: [facility] Date of Admission: 10/23/23 14:11 Attending Provider on Discharge: Mini Carter Primary Care Provider: Sam Ruelas Discharge Medications: New amoxicillin-pot clavulanate 875-125 mg Tablet 1 tab PO BIDWM 7 Days Qty: 14 0RF omeprazole 20 mg capsule,delayed release(DR/EC) 20 mg PO DAILY Qty: 30 0RF Rx Instructions: Take for 30 days, then stop Continued cetirizine 10 mg tablet 10 mg PO DAILY montelukast 10 mg tablet 10 mg PO HS pravastatin 80 mg tablet 80 mg PO HS albuterol sulfate [Ventolin HFA] 90 mcg/actuation Hfa Aerosol Inhaler 2 puff inhalation Q2H PRN (Reason: shortness of breath or wheezing) Qty: 8.5 3RF acetaminophen 500 mg tablet 500 mg PO Q6H PRN fluticasone propion-salmeterol [Advair Diskus] 500-50 mcg/dose blister with device 1 inh inhalation BID clobetasol 0.05 % ointment 1 applic topical BID Rx Instructions: FOR 1 MONTH 10/12/23-11/11/23 insulin lispro 100 unit/mL insulin pen 5 - 10 unit subcut TIDWM Rx Instructions: 10 UNITS AM + NOON, 5 UNITS PM PLUS SLIDING SCALE ketoconazole 2 % cream 1 applic topical BID nystatin 100,000 unit/gram powder 1 applic topical BID PRN triamcinolone acetonide 0.1 % cream 1 applic topical BID emollient [Vanicream] Cream 1 applic topical DAILY sennosides [Senna Lax] 8.6 mg Tablet 8.6 mg PO BID tiotropium bromide [Spiriva with HandiHaler] 18 mcg capsule, w/inhalation device 1 cap inhalation DAILY insulin detemir U-100 100 unit/mL (3 mL) insulin pen 8 - 18 unit subcut BID Rx Instructions: 8 UNITS AM, 18 UNITS HS guaifenesin [Mucinex] 600 mg Tablet Extended Release 12hr 600 mg PO BID Held aspirin 81 mg tablet,delayed release (DR/EC) 81 mg PO DAILY Hold Instructions: Resume on 11/04/23. Discharge Orders: Discharge Order (Routine); Ordered 10/28/23 Ordered By: Mini Carter Activity Level: Activity as Tolerated and Use Walker Discharge Diet: Diabetic and Low Fat/Low Cholesterol Follow Up Appointments: Sam Ruelas MD [Primary Care Provider] - Forms: [facility] Info Instructions Admit to: SNF Discharge Potential: Fair Length of Stay: >90 days Can use facility standing orders?: Yes Code Status: Full Code TEDs: N/A Rehab Potential: Good Therapy: Physical Therapy and Occupational Therapy Therapy Orders: Evaluate and Treat Oxygen: No Urinary Catheter: No Lab Orders: Hgb, LFTs 5 days Orders are good >30 days: No Signature: Mini Carter MD
--- NOTE | 2023-10-28 11:20 | PC.NURSE ---
shift note: nurse to nurse given to Ladan LEGER at [facility]. IV dc'd intact Lt wrist. vss stable. pt afeb. pt tolerated full liquids w/o n/v. Pt denies pain. Belongings reviewed and sent with pt at de. D.O sent with pt's sister upon private transport to [address] [place] [address].
== END 2023-10-28 12:21 | DRG 253 ==
LOC: ED 12:38 → MEDSURG 13:45
PROVIDERS: Surgery; Admitting Provider Family Medicine; Emergency Provider Family Medicine; PCP Family Medicine; Visit Provider Family Medicine
DX: K92.0 Hematemesis (principal); D62 Acute posthemorrhagic anemia; K80.10 Calculus of gallbladder with chronic cholecystitis without obstruction; N17.9 Acute kidney failure, unspecified; R00.1 Bradycardia, unspecified; E11.649 Type 2 diabetes mellitus with hypoglycemia without coma; E11.65 Type 2 diabetes mellitus with hyperglycemia; G47.33 Obstructive sleep apnea (adult) (pediatric); I12.9 Hypertensive chronic kidney disease with stage 1 through stage 4 chronic kidney disease, or unspecified chronic kidney disease; E11.22 Type 2 diabetes mellitus with diabetic chronic kidney disease; N18.9 Chronic kidney disease, unspecified; Z79.4 Long term (current) use of insulin; Z99.81 Dependence on supplemental oxygen; G31.84 Mild cognitive impairment of uncertain or unknown etiology; J44.9 Chronic obstructive pulmonary disease, unspecified; D45 Polycythemia vera; J84.10 Pulmonary fibrosis, unspecified; J98.11 Atelectasis; K44.9 Diaphragmatic hernia without obstruction or gangrene; Z86.12 Personal history of poliomyelitis
CPT/HCPCS: 00731; 36415; 36430; 43239; 74177; 76705; 80048; 80053; 80076; 82962; 83690; 83880; 84484; 85025; 85610; 85730; 86850; 86900; 86901; 86922; 87631; 88305; 88312; 88341; 88342; 93005; 94761; 97116; 97161; 97165; 99100; 99140; 99285; A9270; C9113; J1940; J2543; J2704; J7030; J7120; P9016; Q9967

== ENCOUNTER 2023-10-31 09:05 | Outpatient (CLI) | payer BC, SELFPAY | END 2023-10-31 09:06 | disposition home or self-care (01) | LOC: WOUND 09:05 | PROVIDERS: PCP Family Medicine; Visit Provider Nurse Practitioner Family | DX: E11.621 Type 2 diabetes mellitus with foot ulcer (principal); L97.528 Non-pressure chronic ulcer of other part of left foot with other specified severity; D45 Polycythemia vera; Z79.4 Long term (current) use of insulin | CPT/HCPCS: G0463 ==

== ENCOUNTER 2023-12-05 16:52 | Outpatient (CLI) | payer BC, SELFPAY | END 2023-12-05 16:53 | disposition home or self-care (01) | LOC: AMB 12-07 06:32 | PROVIDERS: PCP Family Medicine; Visit Provider Emergency Medicine | DX: E11.65 Type 2 diabetes mellitus with hyperglycemia (principal) | CPT/HCPCS: A0425; A0427 ==

== ENCOUNTER 2023-12-05 17:20 | Emergency (ER) | payer BC, SELFPAY ==
[2023-12-05] VITALS (14 sets, daily range): BP systolic 118–171; BP diastolic 42–59; PULSE 65–98; RESP 16; TEMP 36.4; O2SAT 93–100; BMI 27.2
[2023-12-05] MEDS: 0.9 % SODIUM CHLORIDE 1000 ml 1,000 ML IV ×3 (17:40→19:00)
--- NOTE | 2023-12-05 17:44 | ED.GENADULT ---
HPI - General Adult General Chief complaint: Weakness Stated complaint: hypoglycemia Time Seen by Provider: 12/05/23 17:21 History of Present Illness HPI narrative: This 78-year-old male is a resident at [facility] and comes in by ambulance stating that he has not been feeling well. He tells me however on his arrival here that he is feeling well. Later he states that he did start having some vomiting last night and did so again several times today. Ambulance personnel placed an IV and did give Zofran. Patient has type 2 diabetes and his blood glucose was registering greater than 600 on glucometer. The patient denies having any chest pain or abdominal pain. He does not report any fevers or altered bowel function or symptoms of dysuria. Related Data Home Medications ?Medication ?Instructions ?Recorded ?Confirmed aspirin 81 mg tablet,delayed 81 mg PO DAILY 08/10/22 12/05/23 release cetirizine 10 mg tablet 10 mg PO DAILY 08/10/22 12/05/23 montelukast 10 mg tablet 10 mg PO HS 08/10/22 12/05/23 pravastatin 80 mg tablet 80 mg PO HS 08/10/22 12/05/23 acetaminophen 500 mg tablet 500 mg PO Q6H PRN 08/18/22 10/23/23 fluticasone 500 mcg-salmeterol 50 1 inh inhalation BID 08/18/22 12/05/23 mcg/dose blistr powdr for inhalation (Advair Diskus) clobetasol 0.05 % topical ointment 1 applic topical BID 10/23/23 10/23/23 emollient (Vanicream topical) 1 applic topical DAILY 10/23/23 10/23/23 guaifenesin 600 mg tablet, 600 mg PO BID 10/23/23 10/23/23 extended release 12 hr (Mucinex) insulin detemir U-100 100 unit/mL 8 - 18 unit subcut BID 10/23/23 12/05/23 (3 mL) subcutaneous pen insulin lispro 100 unit/mL 5 - 10 unit subcut TIDWM 10/23/23 12/05/23 subcutaneous pen ketoconazole 2 % topical cream 1 applic topical BID 10/23/23 12/05/23 nystatin 100,000 unit/gram topical 1 applic topical BID PRN 05/08/24 06/20/24 powder sennosides 8.6 mg tablet (Senna 8.6 mg PO BID 10/23/23 12/05/23 Lax) tiotropium bromide 18 mcg capsule 1 cap inhalation DAILY 10/23/23 12/05/23 with inhalation device (Spiriva with HandiHaler) triamcinolone acetonide 0.1 % 1 applic topical BID 10/23/23 10/23/23 topical cream Previous Rx's ?Medication ?Instructions ?Recorded albuterol sulfate 90 mcg/actuation 2 puff inhalation Q2H PRN 08/14/22 aerosol inhaler (Ventolin HFA) shortness of breath or wheezing #8.5 grams amoxicillin 875 mg-potassium 1 tab PO BIDWM 7 days #14 tabs 10/28/23 clavulanate 125 mg tablet omeprazole 20 mg capsule,delayed 20 mg PO DAILY #30 caps 10/28/23 release Allergies Allergy/AdvReac Type Severity Reaction Status Date / Time No Known Drug Allergies Allergy Verified 12/05/23 17:32 Review of Systems Status of ROS: Reports: 10 or more systems reviewed and unremarkable except as noted in History and below Narrative: Constitutional: No fevers, no weight gain or loss. Eyes: No discharge. No vision changes. HENT: No congestion, no sore throat, no ear pain. Cardiovascular: No chest pain, no palpitations. Respiratory: No shortness of breath, no wheezes, no cough. Gastrointestinal: No abdominal pain, no diarrhea. He reports vomiting episodes beginning last night and occurring again today. Genitourinary: No dysuria, no hematuria. Musculoskeletal: Normal range of motion. Skin: No rashes, no pruritis. Neurological: No dizziness, weakness, sensory change, speech change. Endo/Heme/Allergies: No bruising or bleeding. No polydipsia. Pysch: no suicidality, no anxiety, no insomnia. All other systems reviewed and are negative. [facility] Medical History (Updated 12/05/23 @ 20:43 by Chirag Spring MD) POLST (Physician Orders for Life-Sustaining Treatment) ?Z78.9 - Other specified health status (ICD-10) Polycythemia vera ?D45 - Polycythemia vera (ICD-10) Type 2 diabetes mellitus with hyperglycemia ?E11.65 - Type 2 diabetes mellitus with hyperglycemia (ICD-10) Health care directive on file ?Z78.9 - Other specified health status (ICD-10) Severe chronic obstructive pulmonary disease ?J44.9 - Chronic obstructive pulmonary disease, unspecified (ICD-10) Mild cognitive impairment ?G31.84 - Mild cognitive impairment of uncertain or unknown etiology (ICD-10) History of poliomyelitis ?Z86.12 - Personal history of poliomyelitis (ICD-10) On home oxygen therapy ?Z99.81 - Dependence on supplemental oxygen (ICD-10) Thrombocythemia ?D75.839 - Thrombocytosis, unspecified (ICD-10) Chronic kidney disease ?N18.9 - Chronic kidney disease, unspecified (ICD-10) Obstructive sleep apnea ?G47.33 - Obstructive sleep apnea (adult) (pediatric) (ICD-10) Type 2 diabetes mellitus ?E11.9 - Type 2 diabetes mellitus without complications (ICD-10) Hypertension ?I10 - Essential (primary) hypertension (ICD-10) Surgical History (Updated 10/31/23 @ 00:01 by Micheal Robles) History of open reduction and internal fixation (ORIF) procedure (08/14/22) ?Z98.890 - Other specified postprocedural states (ICD-10) History of cataract surgery ?Z98.49 - Cataract extraction status, unspecified eye (ICD-10) H/O foot surgery ?Z98.890 - Other specified postprocedural states (ICD-10) Family History Father Diabetes Mother Breast cancer Social History (Updated 10/23/23 @ 14:35 by Gin Diamond MD) Narrative: Resident of our [facility]. Former smoker, no ETOH. Requests Full Code status on 10/23/23. Indicates that his brother Boo and sister Joyce should be making healthcare decisions. What is your current living situation?: I presently have a place to live Problems where you live: no known problems Problems where you live details: none In the past 12 months, utilities in danger of being shut off: no In past 12 months, lack of transportation kept you from medical appts, meetings, work, or getting things needed for daily living: no In the past 12 mos, have been you worried that your food would run out before you had money to buy more?: never true In the past 12 mos, the food you bought just didn't last and you didn't have money to buy more?: never true Highest level of school completed/degree received: high school graduate Smoking Status: Former smoker What tobacco products do you use: cigars and pipe Do you use any of these nicotine containing products: None Second hand tobacco smoke exposure: No How often do you have a drink containing alcohol: never How often do you have six or more drinks on one occasion: Never AUDIT-C Alcohol total score: 0 Non-prescribed substance use: denies use Caffeine: Yes How often does anyone, including family, friends and others, physically hurt you: never How often does anyone, including family, friends and others, insult or talk down to you: never How often does anyone, including family, friends and others, threaten you with harm: never How often does anyone, including family, friends and others, scream or curse at you: never service: No Exam Narrative: Exam Narrative: Constitutional: Well-developed, well-nourished, no acute distress. HEENT: Normocephalic, atraumatic. Neck: Normal range of motion. Nontender. Supple. Heart: Regular. No murmurs. Normal rate. Intact distal pulses. Lungs: Clear to auscultation. No chest discomfort. No wheezes, rhonchi, or rales. Abdomen: Normal bowel sounds. Nontender. No rebound tenderness. Genitalia: Deferred. Back: No midline tenderness. Normal range of motion. Extremities: Normal range of motion. No injury. Skin: Intact. No rash. Warm. He does have some generalized pallor. Neurologic: No altered sensation. No weakness. Alert and oriented. Psychiatric: No suicidality. No anxiety or depression. No insomnia. Nursing notes and vitals signs are reviewed. Const: Vital Signs, click to edit/add: Vital Signs - 24 hr 12/05/23 17:27 12/05/23 17:36 12/05/23 17:45 Temperature 97.5 F L Pulse Rate 65 70 Pulse Rate [Pulse Oximeter] 76 Respiratory Rate 16 Blood Pressure Blood Pressure [Ri ght Upper Arm] 171/59 H Pulse Oximetry 97 95 95 Oxygen Delivery Me thod Room Air 12/05/23 18:00 12/05/23 18:09 12/05/23 18:15 Temperature Pulse Rate 70 77 83 Pulse Rate [Pulse Oximeter] Respiratory Rate Blood Pressure 147/55 H Blood Pressure [Ri ght Upper Arm] Pulse Oximetry 97 96 93 Oxygen Delivery Me thod 12/05/23 18:30 12/05/23 18:32 12/05/23 18:45 Temperature Pulse Rate 71 74 72 Pulse Rate [Pulse Oximeter] Respiratory Rate Blood Pressure 128/42 L Blood Pressure [Ri ght Upper Arm] Pulse Oximetry 96 100 96 Oxygen Delivery Me thod 12/05/23 19:13 12/05/23 19:15 12/05/23 19:30 Temperature Pulse Rate 90 77 98 Pulse Rate [Pulse Oximeter] Respiratory Rate Blood Pressure Blood Pressure [Ri ght Upper Arm] Pulse Oximetry 100 100 98 Oxygen Delivery Me thod 12/05/23 19:32 12/05/23 19:45 Temperature Pulse Rate 69 71 Pulse Rate [Pulse Oximeter] Respiratory Rate Blood Pressure 118/49 L Blood Pressure [Ri ght Upper Arm] Pulse Oximetry 99 98 Oxygen Delivery Me thod Course Vital Signs Vital signs: Initial Vital Signs Temperature 97.5 F L 12/05/23 17:27 Temperature Source Temporal Artery Scan 12/05/23 17:27 Pulse Rate 76 12/05/23 17:27 Respiratory Rate 16 12/05/23 17:27 Blood Pressure 171/59 H 12/05/23 17:27 Blood Pressure Mean 96 12/05/23 17:27 Blood Pressure Position Sitting 12/05/23 17:27 Pulse Oximetry 97 12/05/23 17:27 Oxygen Delivery Method Room Air 12/05/23 17:27 Vital Signs Temperature 97.5 F L 12/05/23 17:27 Pulse Rate 76 12/05/23 17:27 Respiratory Rate 16 12/05/23 17:27 Blood Pressure 171/59 H 12/05/23 17:27 Pulse Oximetry 97 12/05/23 17:27 Oxygen Delivery Method Room Air 12/05/23 17:27 Temperature 97.5 F L 12/05/23 17:27 Pulse Rate 71 12/05/23 19:45 Respiratory Rate 16 12/05/23 17:27 Blood Pressure 118/49 L 12/05/23 19:32 Pulse Oximetry 98 12/05/23 19:45 Oxygen Delivery Method Room Air 12/05/23 17:27 Medications Administered Medications: Generic Name Dose Route Start Last Admin Trade Name Chadwick PRN Reason Stop Dose Admin Albuterol 2.5 mg 12/05/23 18:43 12/05/23 19:07 Albuterol Sulfate 2.5 Mg/3 Ml Vial.[facility] 12/05/23 18:44 2.5 mg ONCE ONE Administration Albuterol 2.5 mg 12/05/23 20:21 12/05/23 19:35 Albuterol Sulfate 2.5 Mg/3 Ml Vial.[facility] 12/05/23 20:22 2.5 mg ONCE ONE Administration Ceftriaxone Sodium 1 gm 12/05/23 19:12 12/05/23 20:06 Ceftriaxone 1 Gm Vial IM 12/05/23 19:13 1 gm ONCE ONE Administration Furosemide 40 mg 12/05/23 19:09 12/05/23 20:17 Furosemide 10 Mg/Ml Inj IVP 12/05/23 19:10 Not Given ONCE ONE Calcium Gluconate/Sodium Chloride 1,000 mg in 50 mls @ 100 mls/hr 12/05/23 18:44 12/05/23 19:08 Calcium Gluc 1,000mg/50 Ml IVPB 12/05/23 19:13 100 mls/hr ONCE ONE Administration Sodium Chloride 1,000 mls @ 1,000 mls/hr 12/05/23 19:00 12/05/23 19:00 0.9 % Sodium Chloride 1000 Ml IV 12/05/23 19:59 1,000 mls/hr .Q1H JUAN Administration Calcium Gluconate/Sodium Chloride 1,000 mg in 50 mls @ 100 mls/hr 12/05/23 19:21 12/05/23 19:55 Calcium Gluc 1,000mg/50 Ml IVPB 12/05/23 19:50 100 mls/hr ONCE ONE Administration Insulin Human (Reg)/Sodium Chloride 100 unit in 100 mls @ 6.5 mls/hr 12/05/23 19:30 12/05/23 19:44 Insulin Inf 100 Unit/100 Ml IVPB 8 unit/hr .[id number] JUAN 8 mls/hr Administration Protocol 6.5 UNIT/HR Sodium Chloride 1,000 mls @ 1,000 mls/hr 12/05/23 20:30 12/05/23 19:00 0.9 % Sodium Chloride 1000 Ml IV 12/05/23 21:29 1,000 mls/hr .Q1H JUAN Administration Insulin Human Regular 10 unit 12/05/23 18:40 12/05/23 19:03 Insulin Regular 100 Unit/Ml Inj IVP 12/05/23 18:41 10 unit ONCE ONE Administration Insulin Human Regular 10 unit 12/05/23 18:57 12/05/23 19:03 Insulin Regular 100 Unit/Ml Inj IVP 12/05/23 18:58 10 unit ONCE ONE Administration Lidocaine HCl 2.1 ml 12/05/23 19:12 12/05/23 20:07 Lidocaine 1% 5 Ml (Pf) 5 Ml Vial IM 2.1 ml DIRECTED PRN Administration Pain Sodium Bicarbonate 50 meq 12/05/23 19:09 12/05/23 19:30 Sodium Bicarbonate 50 Meq/50ml Syringe IVP 12/05/23 19:10 50 meq ONCE ONE Administration Sodium Zirconium Cyclosilicate 10 gm 12/05/23 18:44 12/05/23 19:11 Sodium Zirconium Cyclosilicate 10 Gm PO 12/05/23 18:45 10 gm ONCE ONE Administration Discontinued Medications Generic Name Dose Route Start Last Admin Trade Name Freq PRN Reason Stop Dose Admin Sodium Chloride 1,000 mls @ 1,000 mls/hr 12/05/23 17:45 12/05/23 17:40 0.9 % Sodium Chloride 1000 Ml IV 12/05/23 18:44 1,000 mls/hr .Q1H JUAN Administration Ceftriaxone Sodium 1 gm/ 100 mls @ 200 mls/hr 12/05/23 19:05 12/05/23 19:24 Sodium Chloride IVPB 12/05/23 19:06 200 mls/hr ONCE ONE Administration Medical Decision Making MDM Narrative Medical decision making narrative: This patient arrives for evaluation of elevated glucose and generalized malaise. He states that he has been vomiting since last night. An EKG is obtained and shows normal sinus rhythm with a rate of 79 beats per minute but there are peaked T-waves throughout suggesting hyperkalemia. Labs are acquired and this turns out to be the case with a potassium measuring at a remarkable 8.7. The patient immediately received treatment to stabilize this high potassium which included IV calcium gluconate, albuterol nebulizer treatments x2, insulin 20 units intravenously, and oral sodium is or Coney M. other lab results begin to come back showing a white count at 39,000, hemoglobin at 6.6, sodium at 1:29 a.m., anion gap of 30, BUN 66 and creatinine 3.1. His CO2 is 5 and glucose returned at 1102. His troponin is in normal range at 0.04. The patient was hospitalized here about a month ago and at that time he had a hemoglobin of 7 which increased up to 9 after blood transfusion. His white count was normal. Also I noted that he was full code at that time. IA asked him again it what his current wishes are and he continues to wish to be full code. Dr. Hinds assisted with care of this patient by a contacting [facility] for transfer to intensive care. I did speak with Dr. Mcelroy who agrees to his transfer to [facility] in the ICU. He recommended a g of Rocephin. This was done after cultures were obtained. Patient also received Lasix 40 mg and a total of 3 L of normal saline. He also received an amp of bicarb. Orders were placed for blood transfusion but the patient was able to be transferred before the blood products were ready to be administered. The patient continues to have reassuring vital signs and is lethargic but arousable. He did appear to have some Kussmaul type breathing. He maintains sufficient oximetry and did not need oxygen. Time spent in critical care of this patient was 60 minutes. Lab Data Labs: Lab Results 12/05/23 12/05/23 12/05/23 Range/Units 17:42 17:52 18:55 WBC 39.02 H* (4.50-11.00) K/uL RBC 2.11 L (4.30-5.90) m/uL Hgb 6.6 L* (13.5-17.5) gm/dL Hct 22.2 L (37.0-53.0) % MCV 105 H (80-100) fL MCH 31 (26-34) pg MCHC 30 L (32-36) gm/dL RDW Coeff of Khushboo 22.3 H (11.5-15.5) % Plt Count 210 (140-440) K/uL Neut % (Auto) SHOP DIRECTOR Lymph % (Auto) SHOP DIRECTOR [place] % (Auto) SHOP DIRECTOR Eos % (Auto) SHOP DIRECTOR Baso % (Auto) SHOP DIRECTOR Neut # (Auto) SHOP DIRECTOR Lymph # (Auto) SHOP DIRECTOR [place] # (Auto) SHOP DIRECTOR Eos # (Auto) SHOP DIRECTOR Baso # (Auto) SHOP DIRECTOR Abs Immat Gran (auto) SHOP DIRECTOR Neutrophils % (Manual) 1.0 L (42.0-72.0) % Lymphocytes % (Manual) 28.0 (20.0-44.0) % Monocytes % (Manual) 0.0 (0-11) % Eosinophils % (Manual) 0.0 (0.0-7.0) % Basophils % (Manual) 0.0 (0.0-3.0) % Myelocytes % (Man) 71.0 % Imm/Tot Granulo (auto) SHOP DIRECTOR Abs Neuts (Manual) 0.40 L (1.70-7.00) K/uL Lymphocytes # (Manual) 10.90 H (0.90-2.90) K/uL Monocytes # (Manual) 0.00 (0.00-0.90) K/uL Eosinophils # (Manual) 0.00 (0.00-0.50) K/uL Basophils # (Manual) 0.00 (0.00-0.30) K/uL Abs Myelocytes (Man) 27.70 K/uL Nucleated RBCs 0.0 (0.0-0.1) K/uL Diff Slide Review Req Man Differential (Acceptable) Polychromasia Slight A (Absent) Anisocytosis Moderate A (Absent) Macrocytosis Marked A (Absent) Sodium 129 L (135-149) mmol/L Potassium 8.7 H* (3.6-5.1) mmol/L Chloride 94 L (96-114) mmol/L Carbon Dioxide 5 L* (20-32) mmol/L Anion Gap 30 H (7-15) mEq/L BUN 66 H (7-30) mg/dL Creatinine 3.1 H (0.5-1.5) mg/dL Estimated Creat Clear 19.01 Estimated GFR 20 ml/min Glucose 1102 H* (60-115) mg/dL Lactate 3.2 H (0.5-1.9) mmol/L Calcium 8.3 L (8.4-10.6) mg/dL Total Bilirubin 0.6 (0.1-1.5) mg/dL Direct Bilirubin 0.6 H (0.0-0.5) mg/dL AST 30 (12-35) U/L ALT 21 (4-50) U/L Alkaline Phosphatase 177 H (40-150) U/L Total Protein 7.8 (6.0-8.3) g/dL Albumin 4.1 (3.3-5.0) g/dL Urine Color (Yellow) Urine Appearance (Clear) Urine pH (5.0-8.5) Ur Specific [place] (1.000-1.030) Urine Protein (Negative) Urine Glucose (UA) (Negative) Urine Ketones (Negative) Urine Blood (Negative) Urine Nitrite (Negative) Urine Bilirubin (Negative) Urine Urobilinogen (0.2-1.0) Ur Leukocyte Esterase (Negative) Urine RBC (0-2) Urine WBC (0-5) Ur Squamous Epith Cells (None-Few) Amorphous Sediment (None) Urine Bacteria (None) POC Troponin I 0.04 (0.01-0.04) ng/ml 12/05/23 Range/Units 19:11 WBC (4.50-11.00) K/uL RBC (4.30-5.90) m/uL Hgb (13.5-17.5) gm/dL Hct (37.0-53.0) % MCV (80-100) fL MCH (26-34) pg MCHC (32-36) gm/dL RDW Coeff of Khushboo (11.5-15.5) % Plt Count (140-440) K/uL Neut % (Auto) Lymph % (Auto) [place] % (Auto) Eos % (Auto) Baso % (Auto) Neut # (Auto) Lymph # (Auto) [place] # (Auto) Eos # (Auto) Baso # (Auto) Abs Immat Gran (auto) Neutrophils % (Manual) (42.0-72.0) % Lymphocytes % (Manual) (20.0-44.0) % Monocytes % (Manual) (0-11) % Eosinophils % (Manual) (0.0-7.0) % Basophils % (Manual) (0.0-3.0) % Myelocytes % (Man) % Imm/Tot Granulo (auto) Abs Neuts (Manual) (1.70-7.00) K/uL Lymphocytes # (Manual) (0.90-2.90) K/uL Monocytes # (Manual) (0.00-0.90) K/uL Eosinophils # (Manual) (0.00-0.50) K/uL Basophils # (Manual) (0.00-0.30) K/uL Abs Myelocytes (Man) K/uL Nucleated RBCs (0.0-0.1) K/uL Diff Slide Review (Acceptable) Polychromasia (Absent) Anisocytosis (Absent) Macrocytosis (Absent) Sodium (135-149) mmol/L Potassium (3.6-5.1) mmol/L Chloride (96-114) mmol/L Carbon Dioxide (20-32) mmol/L Anion Gap (7-15) mEq/L BUN (7-30) mg/dL Creatinine (0.5-1.5) mg/dL Estimated Creat Clear Estimated GFR ml/min Glucose (60-115) mg/dL Lactate (0.5-1.9) mmol/L Calcium (8.4-10.6) mg/dL Total Bilirubin (0.1-1.5) mg/dL Direct Bilirubin (0.0-0.5) mg/dL AST (12-35) U/L ALT (4-50) U/L Alkaline Phosphatase (40-150) U/L Total Protein (6.0-8.3) g/dL Albumin (3.3-5.0) g/dL Urine Color Dark yellow (Yellow) Urine Appearance Clear (Clear) Urine pH 5.0 (5.0-8.5) Ur Specific [place] 1.025 (1.000-1.030) Urine Protein 1+ A (Negative) Urine Glucose (UA) 2+ A (Negative) Urine Ketones Negative (Negative) Urine Blood Trace-intact A (Negative) Urine Nitrite Negative (Negative) Urine Bilirubin Negative (Negative) Urine Urobilinogen 0.2 (0.2-1.0) Ur Leukocyte Esterase Negative (Negative) Urine RBC 2-5 A (0-2) Urine WBC 0-2 (0-5) Ur Squamous Epith Cells None (None-Few) Amorphous Sediment Few A (None) Urine Bacteria Many A (None) POC Troponin I (0.01-0.04) ng/ml ECG Data Attestation: I personally reviewed and interpreted this ECG as follows: Interpretation: Sinus rhythm with first-degree AV block and peaked T-waves throughout. Rate is 79 beats per minute. Right bundle branch block. Critical Care Time Critical Care Time Total Critical Care Time in Minutes: 60 Discharge Plan Discharge Clinical Impression: DKA (diabetic ketoacidosis), Anemia, Acute hyperkalemia, Leukocytosis, Acute renal insufficiency Patient Disposition: Xfer Other Condition: Unchanged Prescriptions: No Action aspirin 81 mg tablet,delayed release (DR/EC) 81 mg PO DAILY Hold Instructions: Resume on 11/04/23. cetirizine 10 mg tablet 10 mg PO DAILY montelukast 10 mg tablet 10 mg PO HS pravastatin 80 mg tablet 80 mg PO HS albuterol sulfate [Ventolin HFA] 90 mcg/actuation Hfa Aerosol Inhaler 2 puff inhalation Q2H PRN (Reason: shortness of breath or wheezing) Qty: 8.5 3RF acetaminophen 500 mg tablet 500 mg PO Q6H PRN fluticasone propion-salmeterol [Advair Diskus] 500-50 mcg/dose blister with device 1 inh inhalation BID clobetasol 0.05 % ointment 1 applic topical BID Rx Instructions: FOR 1 MONTH 10/12/23-11/11/23 insulin lispro 100 unit/mL insulin pen 5 - 10 unit subcut TIDWM Rx Instructions: 10 UNITS AM + NOON, 5 UNITS PM PLUS SLIDING SCALE ketoconazole 2 % cream 1 applic topical BID nystatin 100,000 unit/gram powder 1 applic topical BID PRN triamcinolone acetonide 0.1 % cream 1 applic topical BID emollient [Vanicream] Cream 1 applic topical DAILY sennosides [Senna Lax] 8.6 mg Tablet 8.6 mg PO BID tiotropium bromide [Spiriva with HandiHaler] 18 mcg capsule, w/inhalation device 1 cap inhalation DAILY insulin detemir U-100 100 unit/mL (3 mL) insulin pen 8 - 18 unit subcut BID Rx Instructions: 8 UNITS AM, 18 UNITS HS guaifenesin [Mucinex] 600 mg Tablet Extended Release 12hr 600 mg PO BID amoxicillin-pot clavulanate 875-125 mg Tablet 1 tab PO BIDWM 7 Days Qty: 14 0RF omeprazole 20 mg capsule,delayed release(DR/EC) 20 mg PO DAILY Qty: 30 0RF Rx Instructions: Take for 30 days, then stop Follow Up/Referrals: Sam Ruelas MD [Primary Care Provider] - Stand Alone Forms: MyHealth Info Instructions
[2023-12-05 18:05] LABS: Troponin, Point-of-Care* 0.04 ng/ml (0.01-0.04)
--- NOTE | 2023-12-05 18:18 | ED.NURSE ---
Pt is alert to self, the situation, and time. Is otherwise appearing fatigued, tired at this time.
[2023-12-05 18:34] LABS: Albumin* 4.1 g/dL (3.3-5.0); Hematocrit 22.2 % (37.0-53.0); Mean Corpuscular HGB Conc 30 gm/dL (32-36); Mean Corpuscular Hemoglobin 31 pg (26-34); Mean Corpuscular Volume 105 fL (80-100); Platelet Count* 210 K/uL (140-440); RDW Coefficient of Variation % 22.3 % (11.5-15.5); Red Blood Count 2.11 m/uL (4.30-5.90)
[2023-12-05 18:35] LABS: Chloride* 94 mmol/L (96-114); Sodium* 129 mmol/L (135-149)
[2023-12-05 18:37] LABS: Creatinine* 3.1 mg/dL (0.5-1.5); Est. Creatinine Clearance* 19.01; Estimated Glomerular Filt Rate 20 ml/min
[2023-12-05 18:38] LABS: Alanine Aminotransferase* 21 U/L (4-50); Alkaline Phosphatase* 177 U/L (40-150); Aspartate Amino Transferase* 30 U/L (12-35); Bilirubin Direct* 0.6 mg/dL (0.0-0.5); Bilirubin Total* 0.6 mg/dL (0.1-1.5); Blood Urea Nitrogen* 66 mg/dL (7-30); Calcium* 8.3 mg/dL (8.4-10.6); Total Protein* 7.8 g/dL (6.0-8.3)
[2023-12-05 18:39] LABS: Hemoglobin* 6.6 gm/dL (13.5-17.5); Slide Review Reflex Yes; White Blood Count* 39.02 K/uL (4.50-11.00)
[2023-12-05 18:50] LABS: Potassium* 8.7 mmol/L (3.6-5.1)
--- NOTE | 2023-12-05 18:50 | ED.NURSE ---
pt noted to have Kussmaul breathing.
[2023-12-05 18:51] LABS: Anion Gap 30 mEq/L (7-15); Carbon Dioxide* 5 mmol/L (20-32)
[2023-12-05 18:57] LABS: Glucose* 1102 mg/dL (60-115)
[2023-12-05 19:04] LABS: Lactate* 3.2 mmol/L (0.5-1.9)
[2023-12-05] MEDS: ALBUTEROL SULFATE 2.5 MG/3 ML VIAL.NEB NEB ×2 (19:07→19:35)
[2023-12-05] MEDS: CALCIUM GLUC 1,000MG/50 ML 1,000 MG/50 ML BAG 100 MG IVPB ×2 (19:08→19:55)
[2023-12-05] MEDS: SODIUM ZIRCONIUM CYCLOSILICATE 10 GM PO (19:11)
[2023-12-05 19:17] LABS: Appearance Urine Clear (Clear); Bilirubin Urine Negative (Negative); Blood Urine Trace-intact (Negative); Color Urine Dark yellow (Yellow); Glucose Urine 2+ (Negative); Ketones Urine Negative (Negative); Leukocyte Esterase Urine Negative (Negative); Nitrite Urine Negative (Negative); Protein Urine 1+ (Negative); Specific Gravity Urine 1.025 (1.000-1.030); Urobilinogen Urine 0.2 (0.2-1.0)
[2023-12-05 19:22] LABS: Slide Review Req Man Differential (Acceptable); Total Cells Counted 100
[2023-12-05] MEDS: cefTRIAXone 1 GM in 0.9 % SODIUM CHLORIDE Mini-bag 100 ML IVPB (19:24)
[2023-12-05 19:28] LABS: Anisocytosis Moderate (Absent); Polychromasia Slight (Absent)
[2023-12-05 19:29] LABS: Macrocytosis Marked (Absent)
[2023-12-05] MEDS: SODIUM BICARBONATE 50 MEQ/50ML SYRINGE IVP (19:30)
[2023-12-05 19:44] LABS: Amorphous Sediment Urine Few; Bacteria Urine Many; WBC Urine 0-2 (0-5)
[2023-12-05] MEDS: INSULIN INF 100 UNIT/100 ML 100 UNIT/100 ML BAG 8 UNIT IVPB (19:44)
--- NOTE | 2023-12-05 20:00 | ED.NURSE ---
Pt report given to RN at [place].
[2023-12-05] MEDS: cefTRIAXone 1 GM VIAL IM (20:06)
[2023-12-05] MEDS: LIDOCAINE 1% 5 ml (pf) 5 ML VIAL 2.1 ML IM (20:07)
== END 2023-12-05 20:10 | disposition other institution (70) ==
PROVIDERS: Emergency Provider Emergency Medicine Emergency Medical Services; PCP Family Medicine
DX: E11.10 Type 2 diabetes mellitus with ketoacidosis without coma (principal); D64.9 Anemia, unspecified; E87.5 Hyperkalemia; D72.829 Elevated white blood cell count, unspecified; N28.9 Disorder of kidney and ureter, unspecified
CPT/HCPCS: 36415; 80048; 80076; 81001; 83605; 84484; 85025; 86850; 86900; 86901; 86922; 87086; 93005; 94640; 96372; 96374; 96375; 99284; 99291; J0613; J0696; J3590; J7030

== ENCOUNTER 2023-12-05 19:45 | Outpatient (CLI) | payer BC, SELFPAY | END 2023-12-05 19:46 | disposition home or self-care (01) | LOC: AMB 12-07 06:52 | PROVIDERS: PCP Family Medicine; Visit Provider Emergency Medicine | DX: E87.5 Hyperkalemia (principal); D72.829 Elevated white blood cell count, unspecified; N28.9 Disorder of kidney and ureter, unspecified | CPT/HCPCS: A0425; A0434 ==